=== PATIENT | male | born 1970 | race African-American/Black ===

== ENCOUNTER 2018-06-26 16:11 | Emergency (ER) | payer BC ==
[2018-06-26] MEDS ORDERED: IBUPROFEN 400 MG TAB ONE (17:16)
--- NOTE | 2018-06-26 17:42 | ER ---
Nurse's Notes [facility] Name: Russel Sotelo Age: 48 yrs Sex: Male : 1970 Arrival Date: 06/26/2018 Time: 16:14 Bed 9 Private MD: Out, [facility] Diagnosis: Pain in right ankle and joints of right foot Presentation: 06/26 16:37 Presenting complaint: Patient states: "It might be gout but something is wrong with my aj1 ankle. I had it X-Rayed 6 months ago and there was some tissues that were torn so I might have torn them again" Reports ankle pain for the past 6 months. Pain is alleviated by resting and exacerbated by walking on it. Transition of care: patient was not received from another setting of care. Onset of symptoms was November 2017. Risk Assessment: Do you want to hurt yourself or someone else? Patient reports no desire to harm self or others. Initial Sepsis Screen: Does the patient meet any 2 criteria? No. Patient's initial sepsis screen is negative. Does the patient have a suspected source of infection? No. Patient's initial sepsis screen is negative. Care prior to arrival: None. 16:37 Method Of Arrival: Ambulatory aj 16:37 Acuity: TRUE 4 aj1 Triage Assessment: 16:41 General: Appears in no apparent distress. comfortable, Behavior is calm, cooperative, aj1 appropriate for age. Pain: Complains of pain in right ankle Pain currently is 6 out of 10 on a pain scale. Neuro: Level of Consciousness is awake, alert, obeys commands. Cardiovascular: Patient's skin is warm and dry. Respiratory: Airway is patent Respiratory effort is even, unlabored, Respiratory pattern is regular, symmetrical. Musculoskeletal: Range of motion: intact in all extremities. Historical: - Allergies: 16:41 No Known Allergies; aj1 - Home Meds: 16:41 Lisinopril Oral [Active]; metformin Oral [Active]; cholesterol medication [Active]; aj1 - PMHx: 16:41 Hypertension; Hyperlipidemia; Diabetes - NIDDM; aj1 - Immunization history:: Flu vaccine is not up to date. - Social history:: Smoking status: Patient/guardian denies using tobacco. - Ebola Screening: : Patient denies travel to an Ebola-affected area in the 21 days before illness onset. Screenin:16 Abuse screen: Denies threats or abuse. Denies injuries from another. Nutritional hb screening: No deficits noted. Tuberculosis screening: No symptoms or risk factors identified. Fall Risk None identified. Assessment: 17:16 General: Appears in no apparent distress. Behavior is calm, cooperative. Pain: Pain hb currently is 6 out of 10 on a pain scale. Neuro: Level of Consciousness is awake, alert, obeys commands, Oriented to person, place, time, situation. Cardiovascular: Capillary refill < 3 seconds Patient's skin is warm and dry. Respiratory: Airway is patent Trachea midline Respiratory effort is even, unlabored, Respiratory pattern is regular, symmetrical. Musculoskeletal: Reports pain in right ankle. Vital Signs: 16:41 BP 145 / 93; Pulse 94; Resp 18; Temp 98.1; Pulse Ox 93% on R/A; Weight 138.35 kg (R); aj1 Height 5 ft. 9 in. (175.26 cm) (R); Pain 6/10; 16:41 Body Mass Index 45.04 (138.35 kg, 175.26 cm) aj1 ED Course: 16:14 Patient arrived in ED. sb2 16:14 Out, of [facility] is Private Physician. sb2 16:40 Triage completed. aj1 16:41 Arm band placed on Patient placed in an exam room. aj1 16:43 Adam Henderson PA is PHCP. cp 16:43 Min Best MD is Attending Physician. cp 17:15 Ginny Villa, RN is Primary Nurse. hb 17:25 Patient has correct armband on for positive identification. Call light in reach. hb 17:28 XRAY Ankle RIGHT 3 view In Process Unspecified. EDMS 17:52 No provider procedures requiring assistance completed. Patient did not have IV access hb during this emergency room visit. Administered Medications: No medications were administered Outcome: 17:42 Discharge ordered by MD. cp 17:52 Discharged to home ambulatory. hb 17:52 Condition: stable 17:52 Discharge instructions given to patient, Instructed on discharge instructions, follow up and referral plans. medication usage, Demonstrated understanding of instructions, follow-up care, medications, Prescriptions given X 2. 17:52 Patient left the ED. hb Signatures: Dispatcher [employer] EDDE Stephanie Eldridge RN RN aj1 Adam Henderson PA PA cp Baxter, Heather, RN RN Gab Pani sb2
--- NOTE | 2018-06-26 17:42 | EDPHYS ---
Physician Documentation [facility] Name: Russel Sotelo Age: 48 yrs Sex: Male : 1970 Arrival Date: 06/26/2018 Time: 16:14 Bed 9 Private MD: Out, [facility] ED Physician Min Best HPI: 06/26 16:54 This 48 yrs old Black Male presents to ER via Ambulatory with complaints of Ankle cp Injury. 16:54 The patient presents with pain, that is acute, swelling, tenderness. The complaints cp affect the right ankle. Onset: The symptoms/episode began/occurred 2-3 days ago. Context: resulted from a gout flare up, similar to previous episodes, The patient can fully bear weight on the affected extremity. the patient is able to ambulate. Historical: - Allergies: 16:41 No Known Allergies; aj1 - Home Meds: 16:41 Lisinopril Oral [Active]; metformin Oral [Active]; cholesterol medication [Active]; aj1 - PMHx: 16:41 Hypertension; Hyperlipidemia; Diabetes - NIDDM; aj1 - Immunization history:: Flu vaccine is not up to date. - Social history:: Smoking status: Patient/guardian denies using tobacco. - Ebola Screening: : Patient denies travel to an Ebola-affected area in the 21 days before illness onset. ROS: 17:00 Constitutional: Negative for body aches, chills, fever, poor PO intake. cp 17:00 Eyes: Negative for injury, pain, redness, and discharge. cp 17:00 Cardiovascular: Negative for chest pain, edema, palpitations. 17:00 Respiratory: Negative for cough, shortness of breath, wheezing. 17:00 Abdomen/GI: Negative for abdominal pain. 17:00 MS/extremity: Positive for pain, swelling, tenderness, of the right ankle, Negative for injury or acute deformity, decreased range of motion, paresthesias. 17:00 All other systems are negative. Exam: 17:05 Constitutional: The patient appears in no acute distress, alert, awake, non-toxic, well cp developed, well nourished. 17:05 Head/Face: Normocephalic, atraumatic. cp 17:05 Eyes: Periorbital structures: appear normal, Conjunctiva: normal, no exudate, no injection, Lids and lashes: appear normal, bilaterally. 17:05 ENT: External ear(s): are unremarkable, Nose: is normal, Mouth: Lips: moist, Oral mucosa: moist, Posterior pharynx: is normal, airway is patent. 17:05 Chest/axilla: Inspection: normal. 17:05 Cardiovascular: Rate: normal, Edema: is not appreciated. 17:05 Respiratory: the patient does not display signs of respiratory distress, Respirations: normal, no use of accessory muscles, no retractions, no splinting, no tachypnea. 17:05 Musculoskeletal/extremity: Perfusion: the extremity is normally perfused throughout, Sensation intact. Joints: All joints are normal except the right ankle displays painful range of motion, swelling, tenderness. 17:05 Skin: cellulitis, is not appreciated, no rash present. Vital Signs: 16:41 BP 145 / 93; Pulse 94; Resp 18; Temp 98.1; Pulse Ox 93% on R/A; Weight 138.35 kg (R); aj1 Height 5 ft. 9 in. (175.26 cm) (R); Pain 6/10; 16:41 Body Mass Index 45.04 (138.35 kg, 175.26 cm) aj1 MDM: 16:43 Patient medically screened. cp 17:00 Differential diagnosis: fracture, sprain, gout, cellulitis, septic joint. cp 17:40 Data reviewed: vital signs, nurses notes, radiologic studies, plain films. cp 17:40 Test interpretation: by ED physician or midlevel provider: plain radiologic studies. cp Counseling: I had a detailed discussion with the patient and/or guardian regarding: the historical points, exam findings, and any diagnostic results supporting the discharge/admit diagnosis, radiology results, the need for outpatient follow up, a family practitioner, to return to the emergency department if symptoms worsen or persist or if there are any questions or concerns that arise at home. Response to treatment: the patient's symptoms have mildly improved after treatment, and as a result, I will discharge patient. 06/26 16:53 Order name: XRAY Ankle RIGHT 3 view cp 06/26 17:30 Order name: Dontrell wrap-joint cp 06/26 17:30 Order name: Crutches cp 06/26 17:30 Order name: Aircast Ankle Splint cp Administered Medications: No medications were administered Disposition: 06/26/18 17:42 Discharged to Home. Impression: Pain in right ankle and joints of right foot. - Condition is Stable. - Discharge Instructions: Gout, Ankle Pain, Form - Excuse from Work, School, or Physical Activity. - Prescriptions for Tramadol 50 mg Oral Tablet - take 1 tablet by ORAL route every 8 hours as needed; 15 tablet. Medrol (Leandro) 4 mg Oral Tablets, Dose Pack - take 1 tablet by ORAL route as directed - follow package instructions; 1 packet. - Medication Reconciliation Form, Thank You Letter, Antibiotic Education, Prescription Opioid Use form. - Work release form (06/26/18 17:57). hb - Follow up: Private Physician; When: 2 - 3 days; Reason: Recheck today's complaints. - Problem is an acute exacerbation. - Symptoms have improved. Addendum: 07/05/2018 08:25 Co-signature as Attending Physician, Min Best MD. r n Signatures: Dispatcher [employer] EDStephanie Malcolm RN RN aj1 Min Best MD MD rn Page, Corey, PA PA cp Baxter, Heather, RN RN hb Corrections: (The following items were deleted from the chart) 06/26 17:52 17:42 06/26/2018 17:42 Discharged to Home. Impression: Pain in right ankle and joints hb of right foot. Condition is Stable. Forms are Medication Reconciliation Form, Thank You Letter, Antibiotic Education, Prescription Opioid Use. Follow up: Private Physician; When: 2 - 3 days; Reason: Recheck today's complaints. Problem is an acute exacerbation. Symptoms have improved. cp
--- NOTE | 2018-06-26 19:11 | RAD REPORT ---
EXAM DESCRIPTION: RAD - Ankle Right 3 View - 06/26/2018 5:28 pm CLINICAL HISTORY: Persistent ankle pain COMPARISON: None. FINDINGS: No fracture, dislocation or periosteal reaction. No joint effusion seen. Lateral soft tiss ue swelling is evident. Anterior soft tissues are prominent as well. Baseline for the patient is unkn own. Calcification is seen in the Achilles tendon. No plantar spur. Degenerative spurring and small c alcifications are seen along the medial ankle joint. IMPRESSION: Lateral and anterior soft tissue swelling with no acute bone finding.
== END 2018-06-26 17:52 | disposition home or self-care (01) ==
LOC: ER 16:11
DX: M25.571 Pain in right ankle and joints of right foot (principal); I10 Essential (primary) hypertension; E11.9 Type 2 diabetes mellitus without complications; E78.5 Hyperlipidemia, unspecified
CPT/HCPCS: 99283

== ENCOUNTER 2019-03-17 12:08 | Inpatient (IN) | payer BC ==
[2019-03-17] MEDS ORDERED: NA CHLORIDE 0.9% 1,000 ML ONE ×2 (12:54→17:06)
[2019-03-17 13:35] LABS: Absolute Lymphocytes (CBC) 1.9 K/uL (0.7-4.9); Absolute Monocytes 0.7 K/uL (0.1-1.3); Absolute Neutrophil 5.2 K/uL (1.8-8.0); Basophils % 0.7 % (0-1.3); Eosinophils % 8.4 % (0-4.4); Hematocrit 40.5 % (39.6-49.0); MPV 9.9 fL (7.6-11.3); Monocytes % 8.2 % (3.3-12.3); RBC Red Blood Cell Count 5.76 M/uL (4.33-5.43)
[2019-03-17 13:50] LABS: Urine Blood TRACE (NEG); Urine Glucose 2+ (NEG); Urine Protein NEGATIVE (NEG); Urine Specific Gravity 1.005 (1.005-1.030)
[2019-03-17 14:01] LABS: BUN Blood Urea Nitrogen 26 mg/dL (7-18); Bicarbonate 26 mmol/L (21-32); Potassium 4.6 mmol/L (3.5-5.1); Sodium Level 121 mmol/L (136-145)
[2019-03-17 14:07] LABS: Glucose Level 788 mg/dL (74-106)
--- NOTE | 2019-03-17 14:20 | EDPHYS ---
Physician Documentation [facility] Name: Russel Sotelo Age: 49 yrs Sex: Male : 1970 Arrival Date: 03/17/2019 Time: 12:10 Bed 5 Private MD: ED Physician Min Best HPI: 03/17 12:42 This 49 yrs old Black Male presents to ER via Ambulatory with complaints of High Blood kb Sugar. 12:42 The patient or guardian reports hyperglycemia, polyuria, dizziness, weight loss that kb was potentially precipitated by no particular event. Onset: The symptoms/episode began/occurred 2 week(s) ago. Associated signs and symptoms: Pertinent positives: polyuria, dizziness, weight loss. Current symptoms: In the emergency department the patient's symptoms are unchanged from the initial presentation. The patient has not experienced similar symptoms in the past. The patient has not recently seen a physician. Pt reports polyuria (6x/hr), hyperglycemia, dizziness for the past 2 weeks, with weight loss of 30 pounds. Came today because he was off of work. . Historical: - Allergies: 12:21 No Known Allergies; sv - Home Meds: 19:51 cholesterol medication [Active]; lisinopril Oral [Active]; Metformin Oral [Active]; jd3 - PMHx: 12:21 Diabetes - NIDDM; Hyperlipidemia; Hypertension; sv - Immunization history:: Adult Immunizations unknown. - Social history:: Smoking status: unknown. - Ebola Screening: : Patient negative for fever greater than or equal to 101.5 degrees Fahrenheit, and additional compatible Ebola Virus Disease symptoms. ROS: 12:42 ENT: Negative for injury, pain, and discharge, Neck: Negative for injury, pain, and kb swelling, Cardiovascular: Negative for chest pain, palpitations, and edema, Respiratory: Negative for shortness of breath, cough, wheezing, and pleuritic chest pain, Abdomen/GI: Negative for abdominal pain, nausea, vomiting, diarrhea, and constipation, MS/Extremity: Negative for injury and deformity, Skin: Negative for injury, rash, and discoloration. 12:42 Constitutional: Positive for weight loss, Negative for body aches, chills, fatigue, fever, malaise, poor PO intake. 12:42 Neuro: Positive for dizziness. 12:42 Endocrine: Positive for polyuria, weight loss. Exam: 12:51 Constitutional: This is a well developed, well nourished patient who is awake, alert, kb and in no acute distress. Head/Face: Normocephalic, atraumatic. ENT: Nares patent. No nasal discharge, no septal abnormalities noted. Tympanic membranes are normal and external auditory canals are clear. Oropharynx with no redness, swelling, or masses, exudates, or evidence of obstruction, uvula midline. Mucous membranes moist. Neck: Trachea midline, no thyromegaly or masses palpated, and no cervical lymphadenopathy. Supple, full range of motion without nuchal rigidity, or vertebral point tenderness. No Meningismus. Chest/axilla: Normal chest wall appearance and motion. Nontender with no deformity. No lesions are appreciated. Cardiovascular: Regular rate and rhythm with a normal S1 and S2. No gallops, murmurs, or rubs. Normal PMI, no JVD. No pulse deficits. Respiratory: Lungs have equal breath sounds bilaterally, clear to auscultation and percussion. No rales, rhonchi or wheezes noted. No increased work of breathing, no retractions or nasal flaring. Abdomen/GI: Soft, non-tender, with normal bowel sounds. No distension or tympany. No guarding or rebound. No evidence of tenderness throughout. Skin: Warm, dry with normal turgor. Normal color with no rashes, no lesions, and no evidence of cellulitis. MS/ Extremity: Pulses equal, no cyanosis. Neurovascular intact. Full, normal range of motion. Neuro: Awake and alert, GCS 15, oriented to person, place, time, and situation. Cranial nerves II-XII grossly intact. Motor strength 5/5 in all extremities. Sensory grossly intact. Cerebellar exam normal. Normal gait. Vital Signs: 12:21 BP 128 / 81; Pulse 96; Resp 18; Temp 97.6; Pulse Ox 97% ; Weight 122.47 kg; Height 5 sv ft. 9 in. (175.26 cm); Pain 0/10; 13:19 BP 130 / 71; Pulse 91; Resp 16; Pulse Ox 98% on R/A; Pain 0/10; iw 19:45 BP 124 / 85; Pulse 78; Resp 18 S; Pulse Ox 97% on R/A; Pain 0/10; jd3 12:21 Body Mass Index 39.87 (122.47 kg, 175.26 cm) sv MDM: 12:32 Patient medically screened. kb 12:51 Data reviewed: vital signs, nurses notes. Data interpreted: Pulse oximetry: on room air kb is 97 %. Interpretation: normal. 14:18 ED course: Corrected Na 132. kb 14:18 Counseling: I had a detailed discussion with the patient and/or guardian regarding: the kb historical points, exam findings, and any diagnostic results supporting the discharge/admit diagnosis, lab results, the need for further work-up and treatment in the hospital. Physician consultation: Wilian Forrester MD was called at 14:18, voicemail left. 03/17 12:27 Order name: Glucose, Ancillary Testing; Complete Time: 12:33 EDMS 03/17 12:38 Order name: CBC with Diff; Complete Time: 13:47 kb 03/17 12:38 Order name: Basic Metabolic Panel; Complete Time: 14:20 kb 03/17 12:38 Order name: Acetone, Serum; Complete Time: 14:20 kb 03/17 13:24 Order name: Urine Dipstick--Ancillary (enter results); Complete Time: 13:51 eb 03/17 15:17 Order name: Osmolality, Serum EDMS 03/17 15:18 Order name: ABG Arterial Blood Gas; Complete Time: 16:05 EDMS 03/17 15:25 Order name: Glucose; Complete Time: 16:42 eb 03/17 15:26 Order name: Glucose, Ancillary Testing; Complete Time: 15:29 EDMS 03/17 16:46 Order name: Miscellaneous Test Lab; Complete Time: 16:47 EDMS 03/17 18:23 Order name: Glucose, Ancillary Testing; Complete Time: 16:42 EDMS 03/17 19:10 Order name: Basic Metabolic Panel; Complete Time: 16:42 EDMS 03/17 19:10 Order name: Phosphorus; Complete Time: 16:42 EDMS 03/17 12:38 Order name: IV Start; Complete Time: 12:46 kb 03/17 12:38 Order name: Urine Dipstick-Ancillary (obtain specimen); Complete Time: 13:19 kb 03/17 12:38 Order name: EKG; Complete Time: 12:39 kb 03/17 12:38 Order name: EKG - Nurse/Tech; Complete Time: 13:20 kb 03/17 19:10 Order name: Magnesium; Complete Time: 16:42 EDMS Administered Medications: 12:45 Drug: NS 0.9% 1000 ml Route: IV; Rate: 1000 ml; Site: left antecubital; sv 14:21 Drug: Insulin Regular Human 10 units {Co-Signature: mc (Yves Altamirano RN).} Route: IVP; iw Site: left antecubital; 14:55 Drug: Insulin Regular Human 10 units {Co-Signature: mc Altamirano RN).} Route: Sub-Q; iw Site: right upper arm; 16:30 Drug: NS 0.9% 1000 ml Route: IV; Rate: 1000 ml; Site: left antecubital; sg 19:54 Follow up: Response: No adverse reaction; IV Status: Completed infusion; IV Intake: jd3 1000ml Point of Care Testing: Blood Glucose: 12:25 Blood Glucose: High (>450 mg/dL); sv 12:25 greater than 500 sv Ranges: Critical Glucose Levels:Adult <50 mg/dl or >400 mg/dl <40 mg/dl or >180 mg/dl Disposition: 03/17/19 14:19 Hospitalization ordered by Wilian Forrester for Inpatient Admission. Preliminary diagnosis are Hyperglycemia, unspecified, Dizziness and giddiness, Polyuria, Acute kidney failure. - Bed requested for Intensive Care Unit. - Status is Inpatient Admission. jd3 - Condition is Stable. - Problem is new. - Symptoms are unchanged. UTI on Admission? No Addendum: 03/18/2019 22:44 Co-signature as Attending Physician, Min Best MD. r n Signatures: Dispatcher [employer] [facility] Maru Frederick, INK PRINTER-C INK PRINTER-Ckb Annel Mccain RN RN sv Gay, Steven RN OLAYINKA sg Arlette Browne RN OLAYINKA Min Best MD MD rn Davies, Jonathon, RN RN jd3 Botello, Elizabeth eb Steven Gay RN sg Corrections: (The following items were deleted from the chart) 03/17 14:06 12:27 GLUCOSE+C.LAB.BRZ ordered. [facility] EDVT 16:29 14:19 Hospitalization Ordered by Wilian Forrester MD for Inpatient Admission. Preliminary eb diagnosis is Hyperglycemia, unspecified; Dizziness and giddiness; Polyuria; Acute kidney failure. Bed requested for Telemetry/MedSurg (Inpatient). Status is Inpatient Admission. Condition is Stable. Problem is new. Symptoms are unchanged. UTI on Admission? No. kb 19:55 16:29 03/17/2019 14:19 Hospitalization Ordered by Wilian Forrester MD for Inpatient jd3 Admission. Preliminary diagnosis is Hyperglycemia, unspecified; Dizziness and giddiness; Polyuria; Acute kidney failure. Bed requested for Intensive Care Unit. Status is Inpatient Admission. Condition is Stable. Problem is new. Symptoms are unchanged. UTI on Admission? No. eb
--- NOTE | 2019-03-17 14:20 | ER ---
Nurse's Notes [facility] Name: Russel Sotelo Age: 49 yrs Sex: Male : 1970 Arrival Date: 03/17/2019 Time: 12:10 Bed 5 Private MD: Diagnosis: Hyperglycemia, unspecified;Dizziness and giddiness;Polyuria;Acute kidney failure Presentation: 03/17 12:20 Presenting complaint: Patient states: was seen at the clinic and BS read HIGH, sent sv here. Reports dry mouth, increased urination, dizziness, BS has been in the 400s for weeks. Transition of care: patient was not received from another setting of care. Onset of symptoms was March 17, 2019. Care prior to arrival: None. 12:20 Method Of Arrival: Ambulatory sv 12:20 Acuity: TRUE 2 sv 19:50 Risk Assessment: Do you want to hurt yourself or someone else? Patient reports no jd3 desire to harm self or others. Initial Sepsis Screen: Does the patient meet any 2 criteria? No. Patient's initial sepsis screen is negative. Does the patient have a suspected source of infection? No. Patient's initial sepsis screen is negative. Historical: - Allergies: 12:21 No Known Allergies; sv - Home Meds: 19:51 cholesterol medication [Active]; lisinopril Oral [Active]; Metformin Oral [Active]; jd3 - PMHx: 12:21 Diabetes - NIDDM; Hyperlipidemia; Hypertension; sv - Immunization history:: Adult Immunizations unknown. - Social history:: Smoking status: unknown. - Ebola Screening: : Patient negative for fever greater than or equal to 101.5 degrees Fahrenheit, and additional compatible Ebola Virus Disease symptoms. Screenin:07 Abuse screen: Denies threats or abuse. Denies injuries from another. Nutritional iw screening: No deficits noted. Tuberculosis screening: No symptoms or risk factors identified. Fall Risk IV access (20 points). Assessment: 13:05 General: Appears in no apparent distress. Behavior is calm, cooperative. General: iw Denies fever, feeling ill. Pain: Denies pain. Neuro: Level of Consciousness is awake, alert, obeys commands, Oriented to person, place, time, situation, Moves all extremities. Full function. Cardiovascular: Respiratory: Airway is patent Respiratory effort is even, unlabored. GI: Abdomen is. GI: Bowel sounds present X 4 quads. Abd is soft X 4 quads. : Reports urinary frequency. Derm: Skin is intact, is healthy with good turgor. Musculoskeletal: Range of motion: intact in all extremities. 13:14 Reassessment: Patient and/or family updated on plan of care and expected duration. Pain iw level reassessed. blood recollected and sent to lab, pt in NAD, up to bathroom with steady gait. 15:59 Reassessment: Patient appears in no apparent distress at this time. Patient and/or sg family updated on plan of care and expected duration. Pain level reassessed. pt ambulatory to ER restroom, steady even gate, pt denies pain, N/V/D/Fever. 19:15 Reassessment: Patient appears in no apparent distress at this time. Patient and/or jd3 family updated on plan of care and expected duration. Pain level reassessed. Patient is alert, oriented x 3, equal unlabored respirations, skin warm/dry/pink. Patient denies pain at this time. 19:45 Reassessment: Patient appears in no apparent distress at this time. Patient and/or jd3 family updated on plan of care and expected duration. Pain level reassessed. Patient is alert, oriented x 3, equal unlabored respirations, skin warm/dry/pink. Vital Signs: 12:21 BP 128 / 81; Pulse 96; Resp 18; Temp 97.6; Pulse Ox 97% ; Weight 122.47 kg; Height 5 sv ft. 9 in. (175.26 cm); Pain 0/10; 13:19 BP 130 / 71; Pulse 91; Resp 16; Pulse Ox 98% on R/A; Pain 0/10; iw 19:45 BP 124 / 85; Pulse 78; Resp 18 S; Pulse Ox 97% on R/A; Pain 0/10; jd3 12:21 Body Mass Index 39.87 (122.47 kg, 175.26 cm) sv ED Course: 12:10 Patient arrived in ED. rg4 12:11 Maru Frederick FNP-C is PHCP. kb 12:11 Min Best MD is Attending Physician. kb 12:20 Triage completed. sv 12:21 Arm band placed on. sv 12:32 Arlette Browne, OLAYINKA is Primary Nurse. iw 12:39 Inserted saline lock: 20 gauge in left antecubital area, using aseptic technique. Blood iw collected. 12:46 EKG done, by handling tech. reviewed by Maru DOCKERY. 3 14:09 Notified Nurse Practitioner and/or Physician Shipping And Receiving of a critical lab result(s), hb Gluc [id number], Arlette RN notified. 14:19 Wilian Forrester MD is Hospitalizing Provider. kb 19:50 Patient has correct armband on for positive identification. Placed in gown. Bed in low jd3 position. Call light in reach. Side rails up X 1. Adult w/ patient. 19:52 No provider procedures requiring assistance completed. Patient admitted, IV remains in jd3 place. Administered Medications: 12:45 Drug: NS 0.9% 1000 ml Route: IV; Rate: 1000 ml; Site: left antecubital; sv 14:21 Drug: Insulin Regular Human 10 units {Co-Signature: mc (Yves Altamirano RN).} Route: IVP; iw Site: left antecubital; 14:55 Drug: Insulin Regular Human 10 units {Co-Signature: mc (Yves Altamirano RN).} Route: Sub-Q; iw Site: right upper arm; 16:30 Drug: NS 0.9% 1000 ml Route: IV; Rate: 1000 ml; Site: left antecubital; sg 19:54 Follow up: Response: No adverse reaction; IV Status: Completed infusion; IV Intake: jd3 1000ml Point of Care Testing: Blood Glucose: 12:25 Blood Glucose: High (>450 mg/dL); sv 12:25 greater than 500 sv Ranges: Intake: 19:54 IV: 1000ml; Total: 1000ml. jd3 Outcome: 14:19 Decision to Hospitalize by Provider. kb 19:52 Admitted to ICU accompanied by nurse, via stretcher, room 06, on monitor, with chart, jd3 Report called to report given per day shift nurse. 19:52 Condition: stable 19:52 Instructed on the need for admit, Demonstrated understanding of instructions. 19:55 Patient left the ED. jd3 Signatures: Maru Frederick FNP-C FNP-Ckb Verde, Stephanie, RN RN sv Gay, Steven, RN RN sg Williams, Irene, RN RN Ginny Villa RN RN hb Garcia, Rubi rg4 Heri Mccann RN RN jd3 Betzy Laird sm3 Yves Altamirano RN sg
[2019-03-17] MEDS ORDERED: INSULIN -REGULAR HUMAN 50 UNIT/0.5 ML ML ONE ×2 (14:27→15:02)
--- NOTE | 2019-03-17 15:15 | EKG ---
Test Date: 2019-03-17 Test Time: 12:46:11 Rd Manager: ELIZABETH MEASUREMENT RESULTS: Intervals: Rate: 90 NM: 142 QRSD: 98 QT: 368 QTc: 450 [place]: P: 40 NM: 142 QRS: -5 T: 21 INTERPRETIVE STATEMENTS: Normal sinus rhythm Normal ECG No previous ECG available for comparison Electronically Signed On 03-17-19 15:14:15 CDT by Marshall Hurley
[2019-03-17 16:01] LABS: Arterial Blood Carboxyhemoglob 1.4 % (0-1.5); Blood Gas Oxyhemoglobin 93.2 % (94-97); Blood O2 Saturation 95.8 % (92-98.5)
[2019-03-17] MEDS ORDERED: GLUCAGON 1 MG/VIAL IM PRN (18:22)
[2019-03-17] MEDS ORDERED: D50W 25 GM/50 ML SYRINGE IV PRN (18:22)
[2019-03-17] MEDS ORDERED: ONDANSETRON 4 MG/2 ML VIAL IV PRN (18:28)
[2019-03-17] MEDS ORDERED: INSULIN -REGULAR HUMAN 100 UNIT in NA CHLORIDE 0.9% 100 ML IV SCH (18:30)
[2019-03-17] MEDS: D5 0.45 NS 1,000 ML IV SCH (19:00)
[2019-03-17] MEDS ORDERED: NA CHLORIDE 0.9% 1,000 ML IV SCH (19:00)
[2019-03-17 19:09] LABS: Magnesium 2.6 mg/dL (1.8-2.4); Phosphorus 2.3 mg/dL (2.5-4.9); Potassium 3.7 mmol/L (3.5-5.1)
[2019-03-17] MEDS: NA CHLORIDE 0.9% 1,000 ML IV SCH (20:36)
[2019-03-17] MEDS: ENOXAPARIN 40 MG/0.4 ML SQ SCH (20:36)
[2019-03-17 22:47] LABS: Potassium 3.3 mmol/L (3.5-5.1)
[2019-03-18 00:55] LABS: Urine Appearance CLEAR; Urine Bilirubin NEGATIVE (NEG); Urine Blood NEGATIVE (NEG); Urine Color YELLOW; Urine Glucose 3+ (NEG); Urine Protein TRACE (NEG); Urine Specific Gravity >=1.030 (1.005-1.030); Urine Urobilinogen 0.2 mg/dL (0.2-1.0); Urine pH 5.5 (5.0-7.0)
[2019-03-18 01:01] LABS: Urine Microscopic Reflex ORDER UMIC
[2019-03-18] MEDS: D5 0.45 NS 1,000 ML IV SCH ×2 (01:40→03:05)
[2019-03-18 01:47] LABS: Urine Bacteria <20 /HPF (NONE SEEN); Urine Culture Reflex Order REFLEXED; Urine RBC NONE SEEN /HPF (NONE SEEN)
[2019-03-18] MEDS: NA CHLORIDE 0.9% 1,000 ML IV SCH (02:12)
[2019-03-18 03:29] LABS: Potassium 3.6 mmol/L (3.5-5.1)
[2019-03-18] MEDS ORDERED: KCL 20 MEQ/100 mL IVPB 20 MEQ/100 ML BAG IV SCH (04:00)
--- NOTE | 2019-03-18 04:00 | HP ---
Date of Admission: 03/17/2019 Chief Complaint: Polyuria, polydipsia. History Of Present Illness: The patient is a 49-year-old male with past medical history of diabetes, hypertension, hyperlipidemia, who has been on metformin with uncontrolled blood glucose levels. The patient was told he needs to be on subcutaneous insulin, however, wanted to try weight loss and diet changes first. The patient reports losing 30 pounds in the past 3 weeks. Significant polyuria, manny ydipsia, dizziness, and dehydration. The patient came in for further evaluation today after being se en by his primary care doctor for having an elevated blood glucose level. The patient's symptoms are constant, moderate, progressively worsening. Workup revealed a glucose level of 788. Serum osmolal ity was unable to be checked due to lab not having the agent. Sodium level was 121. No ketones were present. The patient was given 1 L IV fluid in the ER and then referred for admission. When seen i n the ER, he was awake, alert, oriented x3. Some mild distress. Past Medical History: Diabetes mellitus type 2, [id number], hyperlipidemia hypertension. Past Surgical History: None. Allergies: NO KNOWN DRUG ALLERGIES. Medications: 1.Lisinopril. 2.Metformin. 3.Gemfibrozil. Social History: The patient denies any tobacco use, alcohol use, or illicit drug use. The patient i s gainfully employed. Family History: Diabetes runs in the family. Review of Systems: An 11-point system reviewed, negative except as per HPI. Physical Examination: Vital Signs: Blood pressure 128/81, pulse 96, respirations 18, temperature 97.6, O2 97% on room air. General: Awake, alert, and oriented x3. Obese male in some mild distress. HEENT: Normocephalic, atraumatic. PERRLA. EOMI. Dry mucous membranes. Oropharynx is clear. Norm al dentition. Conjunctivae anicteric. Neck: Supple. No JVD. Trachea midline. CV: S1 and S2. Regular rate and rhythm. Peripheral pulses present. Respiratory: Moving air well bi laterally. No wheezing or stridor. No use of accessory muscles. Gastrointestinal: Abdomen is soft, nontender, nondistended. Positive bowel sounds. No guarding or rigidity. Extremities: No clubbing, cyanosis, or edema. No calf tenderness. Neuro: Cranial nerves 2 through 12 intact grossly. No focal neurological deficit. Speech is normal . Skin: No rashes. Normal skin turgor. Psych: Mood is okay. Affect is full. Insight and judgment are good. Laboratory Data: WBC 8.5, H and H are 12.9 and 40.5, MCV 70.3, platelets 294. ABG; pH 7.4, pCO2 44. 7, PO2 79, bicarb 27. Sodium 121, potassium 4.6, chloride 86, CO2 of 26, BUN 26, creatinine 2.03, gl ucose 788, calcium 9.1. Serum osmolality unable to be done due to lack of the agent in the lab. UA is negative. Acetone level negative. EKG shows normal sinus rhythm, rate of 90. Assessment And Plan: A 49-year-old male with: 1.Hyperosmolar nonketotic hyperglycemia. We will start patient on IV insulin. We will monitor elec trolytes every 4 hours. The patient received 1 L bolus in the ER. We will bolus with 1 more L of no rmal saline. Monitor I's and O's and blood glucose levels closely. 2.Acute dehydration. We will continue with IV fluids. 3.Dizziness, secondary to above. 4.Unintentional weight loss, secondary to uncontrolled diabetes. 5.Pseudohyponatremia, corrected sodium is above 130. 6.Acute kidney injury, likely due to prerenal azotemia. We will continue with IV fluids and monitor . Avoid NSAIDs. 7.Obesity, body mass index of 39.87. 8.Essential hypertension, stable. We will resume home medications. We will hold lisinopril for now due to acute kidney injury. 9.Mixed hyperlipidemia. Continue with antihyperlipidemics. 10.Deep venous thrombosis, prophylaxis with SCDs. Plan: Admit the patient to ICU, place as inpatient. /KENIA Voice ID: [id number]
[2019-03-18] MEDS ORDERED: NA CHLORIDE 0.9% 1,000 ML IV SCH (06:00)
[2019-03-18 06:32] LABS: BUN Blood Urea Nitrogen 17 mg/dL (7-18); Bicarbonate 29 mmol/L (21-32); Glucose Level 171 mg/dL (74-106); HDL Cholesterol 36 mg/dL (40-60); LDL Cholesterol, Calculated ND (<130); Potassium 3.6 mmol/L (3.5-5.1); Sodium Level 136 mmol/L (136-145)
[2019-03-18 07:01] LABS: LDL, Direct 80 mg/dL (100-129)
[2019-03-18] MEDS: INSULIN -REGULAR HUMAN 50 UNIT/0.5 ML ML SQ SCH ×4 (07:30→20:59)
[2019-03-18] MEDS ORDERED: INSULIN GLARGINE 100 UNITS/ML SQ ONE (08:11)
[2019-03-18] MEDS ORDERED: D50W 25 GM/50 ML SYRINGE IV PRN (08:11)
[2019-03-18] MEDS ORDERED: GLUCAGON 1 MG/VIAL IM PRN (08:11)
[2019-03-18] MEDS: GLIPIZIDE S.A. 5 MG TAB PO SCH (09:00)
[2019-03-18] MEDS: ALLOPURINOL 300 MG TAB PO SCH (09:00)
[2019-03-18] MEDS ORDERED: FENOFIBRATE 54 MG PO SCH (09:00)
[2019-03-18] MEDS: ENOXAPARIN 40 MG/0.4 ML SQ SCH (09:00)
[2019-03-18] MEDS: AMLODIPINE 10 MG TAB PO SCH (09:00)
--- NOTE | 2019-03-18 15:06 | PN ---
Date of Progress Note: 03/18/2019 History: The patient is seen and examined. Chart reviewed and case discussed with RN. The patient was counseled regarding his diabetes and triglycerides. Medications: List reviewed. Physical Examination: Vital Signs: Temperature 97.8, heart rate 75, blood pressure 110/71, respirations 15, O2 99% on room air. General: Awake, alert, oriented x3. No acute distress. Morbidly obese male. CV: S1, S2. Regular rate and rhythm. Peripheral pulses present. Respiratory: Moving air well bilaterally. No wheezing or stridor. Gastrointestinal: Abdomen is soft, nontender, nondistended. Positive bowel sounds. Extremities: No clubbing, cyanosis, or edema. Neuro: Cranial nerves 2-12 intact grossly. No focal neurological deficit. Skin: No rashes. Normal skin turgor. Psych: Mood is okay. Affect is full. Insight and judgment are good. Laboratory Data: Sodium 136, potassium 3.6, chloride 101, CO2 29, BUN 7, creatinine 1.37, glucose 17 1, and calcium 8.3. Hemoglobin A1c is pending. Triglycerides 1653, cholesterol 246, LDL 80. UA is negative. Urine cultures pending. Assessment And Plan: A 49-year-old male with: 1.Hyperosmolar nonketotic hyperglycemia. The patient was taken off IV insulin around 3 a.m. last ni [facility] [place]. The patient used a total of 96 units. We will switch over to subcutaneous insulin. We will st art off with 30 units of long-acting and adjust based on his response. We will add premeal as needed . Continue IV fluids. 2.Hypokalemia, corrected. 3.Pseudohyponatremia, corrected. 4.Acute dehydration, improved. Continue with IV fluids. Once the patient is tolerating diet, we wi ll discontinue. 5.Dizziness, resolved. 6.Unintentional weight loss secondary to uncontrolled diabetes. 7.Acute kidney injury likely due to prerenal azotemia, significantly improved. Creatinine is trendi ng down. We will avoid NSAIDs. We will hold lisinopril for now. Continue to monitor. 8.Obesity, BMI 39. 9.Essential hypertension stable. Resume amlodipine. 10.Mixed hyperlipidemia. Continue with home medications. 11.Hypertriglyceridemia. 12.Deep venous thrombosis prophylaxis with Lovenox and SCDs. Plan: Step down to Med/Surg. Adjust insulin dose as needed. Likely discharge in a.m. /KENIA Voice ID: [id number] Report ID: [id number]
[2019-03-18] MEDS ORDERED: INSULIN GLARGINE 100 UNITS/ML SQ SCH (21:00)
[2019-03-18] MEDS: ATORVASTATIN 40 MG TAB PO SCH (21:00)
[2019-03-19 06:18] LABS: Absolute Monocytes 0.5 K/uL (0.1-1.3); Absolute Neutrophil 3.8 K/uL (1.8-8.0); Eosinophils % 10.5 % (0-4.4); Hematocrit 35.9 % (39.6-49.0); Lymphocytes % 27.9 % (15.3-44.8); MPV 9.7 fL (7.6-11.3); Monocytes % 7.4 % (3.3-12.3); RBC Red Blood Cell Count 5.23 M/uL (4.33-5.43)
[2019-03-19 06:46] LABS: Potassium 4.3 mmol/L (3.5-5.1)
[2019-03-19 08:26] LABS: Blood Morphology Comment NOTED (NOT SEEN); Platelet Estimate ADEQ; Urine White Blood Cell Casts OK
[2019-03-19] MEDS: INSULIN -REGULAR HUMAN 50 UNIT/0.5 ML ML SQ SCH ×4 (08:30→21:21)
[2019-03-19] MEDS: ALLOPURINOL 300 MG TAB PO SCH (09:18)
[2019-03-19] MEDS: ENOXAPARIN 40 MG/0.4 ML SQ SCH (09:19)
[2019-03-19] MEDS: AMLODIPINE 10 MG TAB PO SCH (09:19)
[2019-03-19] MEDS ORDERED: D50W 25 GM/50 ML SYRINGE IV PRN (09:26)
[2019-03-19] MEDS ORDERED: GLUCAGON 1 MG/VIAL IM PRN (09:26)
[2019-03-19] MEDS: GLIPIZIDE S.A. 5 MG TAB PO SCH (10:00)
[2019-03-19] MEDS: NA CHLORIDE 0.9% 1,000 ML IV SCH ×2 (10:21→16:55)
[2019-03-19] MEDS: INSULIN LISPRO 100 UNIT/1 ML SQ SCH ×2 (12:38→16:51)
--- NOTE | 2019-03-19 15:49 | PN ---
Date of Progress Note: 03/19/2019 Subjective: The patient is seen and examined. Chart reviewed and case discussed with RN. The patie nt was sent out of the ICU yesterday. The patient reports that he had a turkey subway sandwich with fatty dressing. He understands that he is not supposed to have food from outside the hospital as we are monitoring his inputs and outputs, and he is under control diet at this time. He voiced understa nding. Medications: List reviewed. Physical Examination: Vital Signs: Temperature 98.3, heart rate 79, blood pressure 168/93, respirations 20, O2 96% on room air. General: Awake, alert, oriented x3. No acute distress. Morbidly obese male. CV: S1 and S2. No murmurs. Regular rate and rhythm. Peripheral pulses present. Respiratory: Moving air well bilaterally. No wheezing or stridor. No use of accessory muscles. Gastrointestinal: Abdomen is soft, nontender, nondistended. Positive bowel sounds. Extremities: No clubbing, cyanosis, or edema. Neurologic: Nonfocal. Laboratory Data: Sodium 131, potassium 4.3, chloride 98, CO2 26, BUN 20, creatinine 1.55, glucose 34 6, calcium 7.5, triglycerides 2809. WBC 7.2, H and H 12.2 and 35.9, platelets 275, neutrophils 52%. Urine culture growing mixed south. Hemoglobin A1c was above the range at this time can not detect, therefore we sent out to [facility]. Assessment And Plan: A 49-year-old male with: 1.Hyperosmolar nonketotic hyperglycemia. The patient may need to be placed back on IV insulin. Tri glycerides have gone up to 2800. The patient was not compliant with his diet, eat outside food. We will adjust insulin dose. We will give 40 units at daytime at pre-meal and monitor a.c. and at bedti me. 2.Hyponatremia, corrected. Sodium is normal. We will restart IV fluids. 3.Hypertriglyceridemia. Continue IV fluids. May need to be switched back to IV insulin. 4.Hypokalemia, corrected. 5.Acute dehydration, resolving. Continue IV fluids. 6.Dizziness, resolved. 7.Unintentional weight loss secondary to uncontrolled diabetes. 8.Acute kidney injury secondary to prerenal azotemia, improving. Creatinine stable. Avoid NSAIDs. Hold lisinopril. 9.Obesity, BMI 39. 10.Essential hypertension, stable. Continue amlodipine. 11.Hyperlipidemia. 12.Deep venous thrombosis prophylaxis with Lovenox. Plan: Adjust insulin dose. Monitor triglyceride levels. Restart IV fluids. KERRI Voice ID: [id number] Report ID: [id number]
[2019-03-19] MEDS ORDERED: INSULIN GLARGINE 100 UNITS/ML SQ SCH (21:00)
[2019-03-19] MEDS: ATORVASTATIN 40 MG TAB PO SCH (21:21)
[2019-03-20] MEDS: NA CHLORIDE 0.9% 1,000 ML IV SCH (02:25)
[2019-03-20 05:26] LABS: Potassium 4.1 mmol/L (3.5-5.1)
[2019-03-20] MEDS: INSULIN LISPRO 100 UNIT/1 ML SQ SCH (08:00)
[2019-03-20] MEDS: ENOXAPARIN 40 MG/0.4 ML SQ SCH (08:24)
[2019-03-20] MEDS: AMLODIPINE 10 MG TAB PO SCH (08:24)
[2019-03-20] MEDS: ALLOPURINOL 300 MG TAB PO SCH (08:25)
[2019-03-20] MEDS: INSULIN -REGULAR HUMAN 50 UNIT/0.5 ML ML SQ SCH (09:04)
[2019-03-20] MEDS: GLIPIZIDE S.A. 5 MG TAB PO SCH (09:05)
--- NOTE | 2019-03-21 05:54 | DS ---
Date of Discharge: 03/20/2019 Admitting Diagnoses: 1.Hyperosmolar nonketotic hyperglycemia. 2.Acute dehydration. 3.Dizziness. 4.Unintentional weight loss. 5.Pseudohyponatremia. 6.Acute kidney injury. 7.Obesity, BMI 39.87. 8.Essential hypertension. 9.Mixed hyperlipidemia. Discharge Diagnoses: 1.Hyperosmolar nonketotic hyperglycemia, resolved. 2.Hyponatremia, corrected. 3.Hypertriglyceridemia. 4.Hypokalemia corrected. 5.Acute dehydration. 6.Dizziness, resolved. 7.Unintentional weight loss secondary to uncontrolled diabetes. 8.Acute kidney injury secondary to prerenal azotemia. 9.Obesity, BMI of 39. 10.Essential hypertension, stable. 11.Hyperlipidemia, stable. Hospital Course: The patient is a 49-year-old male with past medical history of diabetes, who comes in with elevated blood glucose levels. He was found to be in hyperosmolar nonketotic hyperglycemia. He also had elevated triglycerides. The patient was started on IV insulin. His condition improved. The patient did have some pseudohyponatremia, which improved with treatment. The patient was switc hed off IV insulin. He responded well. The patient is noncompliant with his diet. Family bring in food from outside. His hemoglobin A1c was too high to be detected from our lab and was sent out. e patient was initiated on subcutaneous insulin. His symptoms improved. He was able to tolerate his diet. He also had some acute kidney injury which improved with treatment. The patient did not have any acute pneumonia or UTI. The patient overall did well. He was counseled regarding his triglycer ides and his diabetes. He was set up with diabetic education. He also made an appointment with Dr. Garza whom he will be seeing on Wednesday. The patient was then cleared for discharge. He was stable . Condition: Fair. Medications: As per medication reconciliation list. Followup: Follow up with primary care physician in 2 to 3 days. Return to ER for worsening conditio n. Repeat triglyceride levels in 1 week. The patient has a glucometer and supplies the patient to c heck blood glucose levels a.c. and h.s. Call PCP or nurse for questions. Diet: Diabetic diet. Activity: As tolerated. Return to work in 24 hours if blood glucose levels are well controlled. Physical Examination: General: Awake, alert, oriented x3, not in any acute distress. Morbidly obese male. CV: S1, S2. No murmurs. Respiratory: Moving air well bilaterally. No wheezing. Gastrointestinal: Abdomen is soft, nontender, nondistended. Positive bowel sounds. Extremities: No clubbing, cyanosis, or edema. Neuro: Nonfocal. Total time spent discharging the patient was 47 minutes. KERRI Voice ID: [id number] Report ID: [id number]
== END 2019-03-20 11:17 | disposition home or self-care (01) | DRG 638 ==
LOC: ER 12:08 → ERHOLD 16:03 → 3RD-ICU 18:15 → 2ND 03-18 16:15
PROVIDERS: ADMIT Family Medicine; ATTEND Family Medicine
DX: E11.00 Type 2 diabetes mellitus with hyperosmolarity without nonketotic hyperglycemic-hyperosmolar coma (NKHHC) (principal); N17.9 Acute kidney failure, unspecified; E87.1 Hypo-osmolality and hyponatremia; Z68.41 Body mass index [BMI] 40.0-44.9, adult; E86.0 Dehydration; E87.6 Hypokalemia; Z91.11 Patient's noncompliance with dietary regimen; I10 Essential (primary) hypertension; E78.1 Pure hyperglyceridemia; E78.2 Mixed hyperlipidemia; E66.9 Obesity, unspecified; Z83.3 Family history of diabetes mellitus; Z79.84 Long term (current) use of oral hypoglycemic drugs
CPT/HCPCS: 36415; 80048; 80061; 81003; 81015; 82010; 82805; 82947; 82962; 83735; 84100; 84478; 85025; 87086; 87088; 93005; 96361; 96372; 96374; 99285; J1650; J7030

== ENCOUNTER 2020-04-21 22:29 | Emergency (ER) | payer BC ==
[2020-04-21] MEDS ORDERED: NA CHLORIDE 0.9% 1,000 ML ONE (22:58)
[2020-04-21 23:08] LABS: Absolute Lymphocytes (CBC) 1.9 K/uL (0.7-4.9); Basophils % 0.7 % (0-1.3); Hematocrit 42.2 % (39.6-49.0); MPV 9.6 fL (7.6-11.3); RBC Red Blood Cell Count 5.68 M/uL (4.33-5.43)
[2020-04-21 23:52] LABS: ALT/SGPT 23 U/L (12-78); AST/SGOT 13 U/L (15-37); Albumin 3.3 g/dL (3.4-5.0); Alkaline Phosphatase 117 U/L (45-117); Amylase 35 U/L (25-115); BUN Blood Urea Nitrogen 15 mg/dL (7-18); Bicarbonate 33 mmol/L (21-32); Bilirubin Direct 0.1 mg/dL (0-0.2); Bilirubin Total 0.7 mg/dL (0.2-1.0); Lipase 107 U/L (73-393); Potassium 4.2 mmol/L (3.5-5.1); Protein, Total 7.8 g/dL (6.4-8.2); Sodium Level 135 mmol/L (136-145); Troponin (Emerg Dept Use Only) < 0.02 ng/mL (0.0-0.045)
[2020-04-21 23:53] LABS: Glucose Level 405 mg/dL (74-106)
[2020-04-21 23:57] LABS: Blood Morphology Comment NOTED (NOT SEEN); Platelet Estimate ADEQ; Polychromasia 1+; Urine White Blood Cell Casts OK
[2020-04-22] MEDS ORDERED: NA CHLORIDE 0.9% 1,000 ML ONE (00:31)
[2020-04-22] MEDS ORDERED: INSULIN -REGULAR HUMAN 50 UNIT/0.5 ML ML ONE (00:31)
[2020-04-22 01:24] LABS: Urine Blood NEGATIVE (NEG); Urine Glucose NEGATIVE (NEG); Urine Protein NEGATIVE (NEG)
--- NOTE | 2020-04-22 01:52 | ER ---
Nurse's Notes [facility] Name: Russel Sotelo Age: 50 yrs Sex: Male : 1970 Arrival Date: 04/21/2020 Time: 22:31 Bed 8 Private MD: Diagnosis: Diabetes with Hyperglycemia Presentation: 04/21 22:38 Chief complaint: Patient states: PATIENT TAKES INSULIN FOR DIABETES. TODAY HIS SUGAR IS rv HIGH, RECENT VALUE IS 410. COMPLAINING OF EXHAUSTION, NAUSEA WITHOUT VOMITING, VISUAL DISTURBANCES. DENIES ANY PAIN. Coronavirus screen: Proceed with normal triage. Ebola Screen: No symptoms or risks identified at this time. Initial Sepsis Screen: Does the patient meet any 2 criteria? No. Patient's initial sepsis screen is negative. Does the patient have a suspected source of infection? No. Patient's initial sepsis screen is negative. Risk Assessment: Do you want to hurt yourself or someone else? Patient reports no desire to harm self or others. Onset of symptoms was April 21, 2020 at 08:00. 22:38 Method Of Arrival: Ambulatory rv 22:38 Acuity: TRUE 3 rv Triage Assessment: 22:41 General: Appears uncomfortable, Behavior is calm, cooperative. Pain: Denies pain. EENT: rv No signs and/or symptoms were reported regarding the EENT system. Neuro: Level of Consciousness is awake, alert, obeys commands, Oriented to person, place, time, situation. Cardiovascular: Patient's skin is warm and dry. Respiratory: Airway is patent Respiratory effort is even, unlabored, Respiratory pattern is regular, symmetrical. GI: Abdomen is round. Derm: Skin is intact. Historical: - Allergies: 22:41 No Known Allergies; rv - PMHx: 22:41 Diabetes - NIDDM; Hyperlipidemia; Hypertension; rv - PSHx: 22:41 None; rv - Immunization history:: Adult Immunizations up to date. - Social history:: Smoking status: Patient denies any tobacco usage or history of. Screenin:47 Abuse screen: Denies threats or abuse. Denies injuries from another. Nutritional rv screening: No deficits noted. Tuberculosis screening: No symptoms or risk factors identified. Fall Risk None identified. Assessment: 04/22 00:35 Reassessment: Patient and/or family updated on plan of care and expected duration. Pain rv level reassessed. Patient is alert, oriented x 3, equal unlabored respirations, skin warm/dry/pink. Patient states feeling better. 01:24 Reassessment: Patient and/or family updated on plan of care and expected duration. Pain rv level reassessed. Patient is alert, oriented x 3, equal unlabored respirations, skin warm/dry/pink. Patient denies pain at this time. Patient states feeling better. Patient states symptoms have improved. Vital Signs: 04/21 22:38 BP 163 / 90; Pulse 97; Resp 20; Temp 98.4(O); Pulse Ox 93% on R/A; Weight 145.15 kg; rv Height 5 ft. 9 in. (175.26 cm); Pain 0/10; 23:00 BP 131 / 74; Pulse 96; Resp 19; Pulse Ox 94% on R/A; rv 23:04 Pulse Ox 98% on 2 lpm NC; rv 04/22 00:00 BP 131 / 74; Pulse 87; Resp 17; Pulse Ox 99% on 2 lpm NC; rv 01:00 BP 139 / 71; Pulse 90; Resp 18; Pulse Ox 99% on 2 lpm NC; rv 04/21 22:38 Body Mass Index 47.26 (145.15 kg, 175.26 cm) rv ED Course: 04/21 22:31 Patient arrived in ED. cl3 22:33 Amanuel Ridley, OLAYINKA is Primary Nurse. rv 22:36 Fahad Jane MD is Attending Physician. mh7 22:41 Triage completed. rv 22:47 Arm band placed on Patient placed in the treatment room, on a stretcher, Patient rv notified of wait time. 22:47 Patient has correct armband on for positive identification. Bed in low position. Call rv light in reach. Side rails up X 1. bag grader on. Pulse ox on. NIBP on. 22:52 Inserted saline lock: 20 gauge in right antecubital area, using aseptic technique. rv ,using aseptic technique. BY [facility]. 04/22 02:03 No provider procedures requiring assistance completed. IV discontinued, intact, jb4 bleeding controlled, No redness/swelling at site. Pressure dressing applied. Administered Medications: 04/21 22:52 Drug: NS 0.9% 1000 ml Route: IV; Rate: 1000 ml; Site: right antecubital; rv 04/22 00:07 Follow up: IV Status: Completed infusion; IV Intake: 1000ml rv 00:31 Drug: NS 0.9% 1000 ml Route: IV; Rate: 1000 ml; Site: right antecubital; rv 02:05 Follow up: IV Status: Completed infusion; IV Intake: 500ml rv 00:32 Drug: Insulin Regular Human 10 units {Co-Signature: alf (Pedro Luis Bearden RN).} Route: rv Sub-Q; Site: abdomen; 01:23 Follow up: Response: No adverse reaction; Blood sugar is lowered rv Intake: 00:07 IV: 1000ml; Total: 1000ml. rv 02:05 IV: 500ml; Total: 1500ml. rv Outcome: 01:52 Discharge ordered by . sharad 02:03 Discharged to home ambulatory. jb4 02:03 Condition: stable 02:03 Discharge instructions given to patient, Instructed on discharge instructions, follow up and referral plans. Demonstrated understanding of instructions, follow-up care. 02:04 Patient left the ED. jb4 Signatures: Pedro Luis Bearden RN RN jb4 Amanuel Ridley RN RN rv Lewis, Charde cl3 Fahad Jane MD MD mh7 Pedro Luis Bearden RN jb4
--- NOTE | 2020-04-22 01:53 | EDPHYS ---
Physician Documentation [facility] Name: Russel Sotelo Age: 50 yrs Sex: Male : 1970 Arrival Date: 04/21/2020 Time: 22:31 Bed 8 Private MD: ED Physician Fahad Jane HPI: 04/21 22:56 This 50 yrs old Black Male presents to ER via Ambulatory with complaints of High Blood mh7 Sugar. 22:56 The patient or guardian reports hyperglycemia, polydipsia, polyuria, that was mh7 potentially precipitated by no particular event, with the patient's symptoms witnessed by no one. Onset: The symptoms/episode began/occurred 3 week(s) ago. Associated signs and symptoms: Pertinent positives: nausea, polydipsia, polyuria, Pertinent negatives: anorexia, constipation, decreased urine output, diaphoresis, diarrhea, dry skin, hair loss, seizure activity, skin flushing, urinary incontinence, vomiting. Current symptoms: In the emergency department the patient's symptoms are unchanged from the initial presentation. The patient has experienced similar episodes in the past, a few times. Historical: - Allergies: 22:41 No Known Allergies; rv - PMHx: 22:41 Diabetes - NIDDM; Hyperlipidemia; Hypertension; rv - PSHx: 22:41 None; rv - Immunization history:: Adult Immunizations up to date. - Social history:: Smoking status: Patient denies any tobacco usage or history of. ROS: 22:56 Constitutional: Negative for fever, chills, and weight loss, Eyes: Negative for injury, mh7 pain, redness, and discharge, ENT: Negative for injury, pain, and discharge, Neck: Negative for injury, pain, and swelling, Cardiovascular: Negative for chest pain, palpitations, and edema, Respiratory: Negative for shortness of breath, cough, wheezing, and pleuritic chest pain, Back: Negative for injury and pain, MS/Extremity: Negative for injury and deformity, Skin: Negative for injury, rash, and discoloration, Neuro: Negative for headache, weakness, numbness, tingling, and seizure, Psych: Negative for depression, anxiety, suicide ideation, homicidal ideation, and hallucinations, Allergy/Immunology: Negative for hives, rash, and allergies, Hematologic/Lymphatic: Negative for swollen nodes, abnormal bleeding, and unusual bruising. Exam: 22:56 Constitutional: This is a well developed, well nourished patient who is awake, alert, mh7 and in no acute distress. Head/Face: Normocephalic, atraumatic. Eyes: Pupils equal round and reactive to light, extra-ocular motions intact. Lids and lashes normal. Conjunctiva and sclera are non-icteric and not injected. Cornea within normal limits. Periorbital areas with no swelling, redness, or edema. Neck: Trachea midline, no thyromegaly or masses palpated, and no cervical lymphadenopathy. Supple, full range of motion without nuchal rigidity, or vertebral point tenderness. No Meningismus. Chest/axilla: Normal chest wall appearance and motion. Nontender with no deformity. No lesions are appreciated. Cardiovascular: Regular rate and rhythm with a normal S1 and S2. No gallops, murmurs, or rubs. Normal PMI, no JVD. No pulse deficits. Respiratory: Lungs have equal breath sounds bilaterally, clear to auscultation and percussion. No rales, rhonchi or wheezes noted. No increased work of breathing, no retractions or nasal flaring. Abdomen/GI: Soft, non-tender, with normal bowel sounds. No distension or tympany. No guarding or rebound. No evidence of tenderness throughout. Back: No spinal tenderness. No costovertebral tenderness. Full range of motion. Skin: Warm, dry with normal turgor. Normal color with no rashes, no lesions, and no evidence of cellulitis. MS/ Extremity: Pulses equal, no cyanosis. Neurovascular intact. Full, normal range of motion. Neuro: Awake and alert, GCS 15, oriented to person, place, time, and situation. Cranial nerves II-XII grossly intact. Motor strength 5/5 in all extremities. Sensory grossly intact. Cerebellar exam normal. Normal gait. Psych: Awake, alert, with orientation to person, place and time. Behavior, mood, and affect are within normal limits. 23:00 ECG was reviewed by the Attending Physician. [facility] Vital Signs: 22:38 BP 163 / 90; Pulse 97; Resp 20; Temp 98.4(O); Pulse Ox 93% on R/A; Weight 145.15 kg; rv Height 5 ft. 9 in. (175.26 cm); Pain 0/10; 23:00 BP 131 / 74; Pulse 96; Resp 19; Pulse Ox 94% on R/A; rv 23:04 Pulse Ox 98% on 2 lpm NC; rv 04/22 00:00 BP 131 / 74; Pulse 87; Resp 17; Pulse Ox 99% on 2 lpm NC; rv 01:00 BP 139 / 71; Pulse 90; Resp 18; Pulse Ox 99% on 2 lpm NC; rv 04/21 22:38 Body Mass Index 47.26 (145.15 kg, 175.26 cm) rv MDM: 04/21 22:46 Patient medically screened. 7 04/22 01:49 Differential diagnosis: diabetes insipidus, DKA, hyperglycemia, Medication 7 noncompliance, Diet non compliance. Data reviewed: vital signs, nurses notes, old medical records, lab test result(s), EKG. Data interpreted: front desk monitor: rate is 90 beats/min, rhythm is normal sinus rhythm, regular, Interpretation: normal rate, normal rhythm, Pulse oximetry: on room air is 99 %. Interpretation: normal. Counseling: I had a detailed discussion with the patient and/or guardian regarding: the historical points, exam findings, and any diagnostic results supporting the discharge/admit diagnosis, the presence of at least one elevated blood pressure reading (>120/80) during this emergency department visit, lab results, the need for outpatient follow up, to return to the emergency department if symptoms worsen or persist or if there are any questions or concerns that arise at home. Response to treatment: the patient's symptoms have resolved after treatment, the patient's blood pressure is in an acceptable range, mental status has returned to baseline, the patient no longer shows bradycardia, the patient is not short of breath, the patient is not tachycardic, the patient's pain is gone, the patient's temperature has normalized. 04/21 22:47 Order name: Acetone, Serum; Complete Time: 23:59 [facility] 04/21 22:47 Order name: Amylase, Serum; Complete Time: 23:59 [facility] 04/21 22:47 Order name: Basic Metabolic Panel; Complete Time: 23:59 [facility] 04/21 22:47 Order name: CBC with Diff; Complete Time: 23:59 [facility] 04/21 22:47 Order name: Hepatic Function; Complete Time: 23:59 [facility] 06/07 22:47 Order name: Lipase; Complete Time: 23:59 mh7 07 22:47 Order name: Phosphorus; Complete Time: 23:59 mh7 07 23:00 Order name: Glucose, Ancillary Testing; Complete Time: 23:10 EDMS 07 23:15 Order name: CBC Smear Scan; Complete Time: 23:59 EDMS 07 23:18 Order name: Troponin (Emerg Dept Use Only); Complete Time: 23:59 EDMS 08 00:16 Order name: Urine Dipstick--Ancillary (enter results); Complete Time: 01:30 mw2 08 01:32 Order name: Glucose, Ancillary Testing; Complete Time: 01:49 EDMS 07 22:47 Order name: EKG; Complete Time: 22:48 mh7 07 22:47 Order name: Cardiac monitoring; Complete Time: 22:52 mh7 07 22:47 Order name: EKG - Nurse/Tech; Complete Time: 22:52 mh7 07 22:47 Order name: IV Saline Lock; Complete Time: 22:52 mh7 07 22:47 Order name: NPO; Complete Time: 22:52 mh7 07 22:47 Order name: O2 Per Protocol; Complete Time: 22:52 mh7 07 22:47 Order name: O2 Sat Monitoring; Complete Time: 22:52 mh7 07 23:23 Order name: Urine Dipstick-Ancillary (obtain specimen); Complete Time: 00:37 mh7 EC/07 23:00 Rate is 95 beats/min. Rhythm is regular, Normal Sinus Rhythm. QRS [place] is Normal. NC mh7 interval is normal. QRS interval is normal. QT interval is prolonged at 467 msec. No Q waves. T waves are Flattened in leads III, aVL, aVF, V6. No ST changes noted. Clinical impression: NSR w/ Non-specific ST/T Changes. Administered Medications: 22:52 Drug: NS 0.9% 1000 ml Route: IV; Rate: 1000 ml; Site: right antecubital; rv 04/22 00:07 Follow up: IV Status: Completed infusion; IV Intake: 1000ml rv 00:31 Drug: NS 0.9% 1000 ml Route: IV; Rate: 1000 ml; Site: right antecubital; rv 02:05 Follow up: IV Status: Completed infusion; IV Intake: 500ml rv 00:32 Drug: Insulin Regular Human 10 units {Co-Signature: alf (Pedro Luis Bearden RN).} Route: rv Sub-Q; Site: abdomen; 01:23 Follow up: Response: No adverse reaction; Blood sugar is lowered rv Disposition: 04/22/20 01:52 Discharged to Home. Impression: Diabetes with Hyperglycemia. - Condition is Stable. - Discharge Instructions: Diabetes Mellitus and Food, Hyperglycemia, Zabw-qi-Eqdn, Tips for Eating Away From Home If You Have Diabetes, How to Avoid Diabetes Problems. - Work release form, Medication Reconciliation Form, Thank You Letter, Antibiotic Education, Prescription Opioid Use form. - Follow up: Private Physician; When: 1 - 2 days; Reason: Worsening of condition, Recheck today's complaints, Re-evaluation by your physician. - Problem is an acute exacerbation. - Symptoms have improved. Signatures: Dispatcher [employer] Pedro Luis Luis RN RN jb4 Amanuel Ridley RN RN Fahad Jane MD MD mh7 Pedro Luis Bearden RN jb4 Corrections: (The following items were deleted from the chart) 04/21 23:17 23:08 TROPONIN (EMERG DEPT USE ONLY)+C.LAB.BRZ ordered. [facility] 04/22 02:04 01:52 04/22/2020 01:52 Discharged to Home. Impression: Diabetes with Hyperglycemia. jb4 Condition is Stable. Forms are Medication Reconciliation Form, Thank You Letter, Antibiotic Education, Prescription Opioid Use. Follow up: Private Physician; When: 1 - 2 days; Reason: Worsening of condition, Recheck today's complaints, Re-evaluation by your physician. Problem is an acute exacerbation. Symptoms have improved. mh7
[2020-04-22 02:16] VITALS: O2SAT 99
[2020-04-22 02:17] VITALS: BP 139/71
[2020-04-22 02:46] VITALS: TEMP 98.4
--- NOTE | 2020-04-22 07:45 | EKG ---
Test Date: 2020-04-21 Test Time: 22:52:23 Lead Assistant Manager: DIANNE MEASUREMENT RESULTS: Intervals: Rate: 95 AL: 136 QRSD: 90 QT: 372 QTc: 467 Joshua: P: 49 AL: 136 QRS: -22 T: 11 INTERPRETIVE STATEMENTS: Normal sinus rhythm Nonspecific T wave abnormality Prolonged QT Abnormal ECG Compared to ECG 03/17/2019 12:46:11 T-wave abnormality now present Prolonged QT interval now present Electronically Signed On 04-22-20 07:44:32 CDT by Jeremy Jones
== END 2020-04-22 02:04 | disposition home or self-care (01) ==
LOC: ER 22:29
DX: E11.65 Type 2 diabetes mellitus with hyperglycemia (principal); I10 Essential (primary) hypertension
CPT/HCPCS: 96361; 93005; 85025; 80048; 36415; 82010; 82150; 84100; 82947 ×2; 80076; 81003; 84484; 83690; 96360; 96372; 99284; J7030 ×2

== ENCOUNTER 2020-08-02 09:58 | Emergency (ER) | payer BC ==
--- OUTSIDE RECORDS SUMMARY | 2020-08-02 10:00 | XMS REPORT | Continuity of Care Document ---
:1970 Author Organization [facility] t Address [address] [place] [address] Care Team Providers Name Role Phone Whitney RN, A Attending Clinician Unavailable Problems This patient has no known problems. Allergies, Adverse Reactions, Alerts This patient has no known allergies or adverse reactions. Medications This patient has no known medications. Procedures This patient has no known procedures. Encounters Start End Encounter Admission Attending Care Care Encounter Source Date/Time Date/Time Type Type Clinicians Facility Department ID 2020-07-30 2020-07-30 Transition Adele Olson [id number] 00:00:00 00:00:00 of Care Donnie Jade [id number] [place] [id number] Results This patient has no known results.
--- OUTSIDE RECORDS SUMMARY | 2020-08-02 10:00 | XMS REPORT | Summary of Care ---
:1970 Author Organization [facility] [[email or web address]] - Health Address [address] [place] [id number] Care Team Providers Name Role Phone Ronda Steward Primary Care Provider Reason for Visit Reason Comments Transition Of Care Encounter Details Date Type Department Care Team Description 07/30/2020 [facility] [address] [id number] Allergies No Known Allergiesdocumented as of this encounter (statuses as of 07/30/2020) Medications Medication Sig Dispensed Refills Start Date End Date Status metformin ER 500 mg 24 Take 500 mg by 0 Active hr tablet mouth daily with breakfast. fenofibrate 54 mg Take 54 mg by 0 Active tablet mouth daily. atorvastatin 40 mg Take 40 mg by 0 Active tablet mouth at bedtime. allopurinoL 100 mg Take 300 mg by 0 Active tablet mouth daily. glipiZIDE 10 mg tablet Take 10 mg by 0 Active mouth daily. aspirin 81 mg chewable Take 1 tablet by 30 tablet 0 07/30/2020 Active tabletIndications: mouth daily. Hypertension, unspecified type carvediloL 12.5 mg Take 1 tablet by 60 tablet 0 07/29/2020 Active tabletIndications: mouth 2 (two) Hypertension, times daily with unspecified type meals. documented as of this encounter (statuses as of 07/30/2020) Active Problems Problem Noted Date NSVT (nonsustained ventricular tachycardia) 07/29/2020 Acute diastolic congestive heart failure 07/28/2020 Hypertensive emergency 07/28/2020 Other hyperlipidemia 07/28/2020 Type 2 diabetes mellitus without complication, without long-term current 07/28/2020 use of insulin Hypoxia 07/27/2020 Morbid obesity with body mass index of 40.0-49.9 07/27 documented as of this encounter (statuses as of 07/30/2020) Social History Tobacco Use Types Packs/Day Years Used Date Never Smoker Smokeless Tobacco: Never Used Alcohol Use Drinks/Week oz/Week Comments Not Currently Sex Assigned at Date Recorded Not on file COVID-19 Exposure Response Date Recorded In the last month, have you been in contact with No / Unsure 07/27/2020 3:29 PM CDT someone who was confirmed or suspected to have Coronavirus / COVID-19? documented as of this encounter Last Filed Vital Signs Not on filedocumented in this encounter Miscellaneous Notes Telephone Encounter - Donnie Olson RN - 07/30/2020 12:38 PM CDT TRANSITIONAL CARE MANAGEMENT ASSESSMENT 07/30/2020 Russel Sotelo [id number] Russel Sotelo is a 50 year old Black or male was admitted on 07/27/20 to [facility], ADC MED SURG. He was discharged on 07/29/20 with discharge disposition of HR- Routine Discharge. Admitting Physician: Marvin Skinner Discharge Diagnosis: Hypertensive emergency Linked Episodes Type: Episode: Status: Noted: Resolved: Last update: Updated by: TRANSITION OF CARE TCM Active 07/29/2020 07/30/2020 12:33 PM Donnie Olson, RN Comments: TCM Sma-winq-po-face outreach documentation: Discharge Assessment Chart Assessed: 07/30/20 TCM Outreach Completed: 07/30/20 Do you have a few minutes to speak with me about how you are doing at home?: Yes(Pt states he is doing good, but has been feeling anxious.) Discharge Instructions Do you understand your at-home instructions?: Yes(No questions at this time.) Medications Have you filled your prescriptions and do you have them in your home? : Yes Do you know how to take your medications?: Yes(No questions.) Can you provide me with the names or descriptions of any slci-ltf-vwufpiq or supplements you are currently taking?: Patient declined Supplies Did you receive applicable home medical supplies/equipment?: N/A Follow Up Appointment Has a follow up appointment been scheduled?: Yes Do you have any questions about your follow up appointments?: No Are you able to get to your appointment? Who will be taking you?: Yes(self) Home Health Assistance Has the home health nurse contacted you since you've been home?: N/A Survey - Recognition Is there anything you would like to share about your recent hospitalization, or anyone you would like to recognize?: No Do you have any suggestions for improvement?: No Do you have any other questions or concerns at this time?: No Future Appointments: Future Appointments Provider Department Dept Phone 08/20/2020 2:20 PM Milagro James MD [facility] [phone] COVID-19 It is noted in the discharge summary that you were tested for COVID 19. Did your physician discuss the results of this test with you? yes Do you have any questions about your test results? no What instructions did you receive from your physician? prevention Do you have any questions about your discharge instructions related to COVID 19? no Should you have any other questions or concerns, you may call the [facility] at [phone] or toll free [phone] for further guidance. documented in this encounter Plan of Treatment Date Type Specialty Care Team Description 08/20/2020 Office Visit Cardiology Milagro James M D [address] [place] [address] [phone] Health Maintenance Due Date Last Done Comments PNEUMOCOCCAL 0-64 YEARS COMBINED 1975 SERIES (1 of 1 - PPSV23) EYE EXAM 1979 URINE MICROALBUMIN 1979 Depression Screening 1981 FOOT EXAM 1987 DTaP,Tdap,and Td Vaccines (1 - Tdap) 01/18/1988 COLON CANCER SCREENING ANNUAL 2019 FIT/FOBT COLON CANCER SCREENING FIT DNA EVERY 2019 3 YEARS COLON CANCER SCREENING SIGMOIDOSCOPY 2019 EVERY 5 YEARS COLONOSCOPY 2019 Colorectal Cancer Screening 2019 Zoster Recombinant Vaccine (SHINGRIX) 2019 (1 of 2) INFLUENZA VACCINE (#1) 2020 HgA1C 01/24/2021 07/27/2020 LDL-C 07/27/2021 07/27/2020 CREATININE (SERUM) 07/29/2021 07/29/2020, 07/28/2020, 07/27/2020 documented as of this encounter Results Not on filedocumented in this encounter Insurance Payer Benefit Plan Subscriber ID Effective Dates Phone Address Type / Group BC [facility] [id number] 2019-Lesia [phone] [address] PPO/POS [place] - OUT OF t 7 [id number] [place] [address] [facility] [place] PLAN Effective for Cherelle HARRIS PAYOR all dates documented as of this encounter
[2020-08-02 10:36] LABS: Absolute Lymphocytes (CBC) 1.9 K/uL (0.7-4.9); Basophils % 0.7 % (0-1.3); Hematocrit 36.9 % (39.6-49.0); Lymphocytes % 18.7 % (15.3-44.8); MPV 8.9 fL (7.6-11.3); RBC Red Blood Cell Count 4.95 M/uL (4.33-5.43)
[2020-08-02 10:37] LABS: Protime INR 0.98
[2020-08-02 10:54] LABS: Albumin 3.3 g/dL (3.4-5.0); Bilirubin Direct 0.2 mg/dL (0-0.2); Bilirubin Total 0.7 mg/dL (0.2-1.0); Potassium 3.8 mmol/L (3.5-5.1)
[2020-08-02 10:55] LABS: Troponin (Emerg Dept Use Only) 0.02 ng/mL (0.0-0.045)
[2020-08-02] MEDS ORDERED: NA CHLORIDE 0.9% 1,000 ML ONE (11:03)
--- NOTE | 2020-08-02 11:50 | RAD REPORT ---
EXAM DESCRIPTION: RAD - Chest Single View - 08/02/2020 10:49 am CLINICAL HISTORY: CHEST PAINchest pain, shortness of breath COMPARISON: None TECHNIQUE: AP portable chest image was obtained 08/02/2020 10:49 am . FINDINGS: Lung volumes are low. No peripheral mass consolidation. Vasculature is mildly prominent. I nterstitial markings are mildly prominent. Baseline for the patient is unknown. Heart size is normal. No measurable pleural effusion and no pneumothorax. No acute bony abnormality seen. No acute aortic findings suspected. IMPRESSION: No peripheral mass or consolidation. Interstitial markings and vasculature are mildly prominent. This is probably baseline though minimal edema or infiltrate, particularly left base, cannot be excluded.
[2020-08-02] MEDS ORDERED: DIAZEPAM 5 MG TABLET ONE (12:03)
--- NOTE | 2020-08-02 12:06 | EDPHYS ---
Physician Documentation [facility] Name: Russel Sotelo Age: 50 yrs Sex: Male : 1970 Arrival Date: 08/02/2020 Time: 09:59 Bed 6 Private MD: Amairani Steward ED Physician Brendon Hickman HPI: 08/02 19:25 This 50 yrs old Black Male presents to ER via Wheelchair with complaints of kdr Palpitations, Anxiety, Shortness Of Breath. 19:25 The patient presents with a history of heart racing. Context: The symptoms occur at kdr rest, with anxiety. Onset: The symptoms/episode began/occurred gradually, 4 day(s) ago. Duration: The patient or guardian reports multiple episodes, that are intermittent, that wax and wane, with no pattern. Modifying factors: The symptoms are aggravated by anxiety, The symptoms are alleviated by nothing. Associated signs and symptoms: The patient has no apparent associated signs or symptoms. Severity of symptoms: At their worst the symptoms were mild moderate just prior to arrival, in the emergency department the symptoms are unchanged. The patient has not experienced similar symptoms in the past. The patient has been recently seen by a physician: Was started on a new medication which he thinks is the cause of his current feelings of anxiety. Historical: - Allergies: 10:09 No Known Allergies; sv - Home Meds: 10:26 aspirin 81 mg Oral TbEC 1 tab once daily [Active]; carvedilol 12.5 mg oral tab 1 tab 2 iw times per day [Active]; allopurinol 300 mg Oral tab 1 tab once daily [Active]; atorvastatin 40 mg oral tab 1 tab once daily [Active]; fenofibrate 54 mg oral tab 1 tab once daily [Active]; glipizide 10 mg Oral tab 1 tab once daily [Active]; metformin 500 mg Oral tr24 1 tab once daily [Active]; - PMHx: 10:09 Diabetes - NIDDM; Hyperlipidemia; Hypertension; CHF; minor kidney problems; sv - PSHx: 10:09 None; sv - Immunization history:: Adult Immunizations up to date. - Social history:: Smoking status: . ROS: 19:25 Constitutional: Negative for fever, chills, and weight loss, Eyes: Negative for injury, kdr pain, redness, and discharge, Neck: Negative for injury, pain, and swelling, Respiratory: Negative for shortness of breath, cough, wheezing, and pleuritic chest pain, Abdomen/GI: Negative for abdominal pain, nausea, vomiting, diarrhea, and constipation, Back: Negative for injury and pain, : Negative for injury, bleeding, discharge, and swelling, MS/Extremity: Negative for injury and deformity, Skin: Negative for injury, rash, and discoloration, Neuro: Negative for headache, weakness, numbness, tingling, and seizure activity. Allergy/Immunology: Negative for hives, rash, and allergies, Endocrine: Negative for neck swelling, polydipsia, polyuria, polyphagia, and marked weight changes, Hematologic/Lymphatic: Negative for swollen nodes, abnormal bleeding, and unusual bruising. 19:25 Cardiovascular: Positive for palpitations, Negative for chest pain, edema, orthopnea, acute changes. 19:25 Psych: Positive for anxiety, Negative for depression, drug dependence, alcohol dependence, auditory hallucinations, visual hallucinations, homicidal ideation, insomnia, suicide gesture, suicidal ideation. Exam: 10:19 ECG was reviewed by the Attending Physician. kdr 19:25 Constitutional: This is a well developed, well nourished patient who is awake, alert, kdr and in no acute distress. Head/Face: Normocephalic, atraumatic. Eyes: Pupils equal round and reactive to light, extra-ocular motions intact. Lids and lashes normal. Conjunctiva and sclera are non-icteric and not injected. Cornea within normal limits. Periorbital areas with no swelling, redness, or edema. Neck: Trachea midline, no thyromegaly or masses palpated, and no cervical lymphadenopathy. Supple, full range of motion without nuchal rigidity, or vertebral point tenderness. No Meningismus. Chest/axilla: Normal chest wall appearance and motion. Nontender with no deformity. No lesions are appreciated. Cardiovascular: Regular rate and rhythm with a normal S1 and S2. No gallops, murmurs, or rubs. Normal PMI, no JVD. No pulse deficits. Respiratory: Lungs have equal breath sounds bilaterally, clear to auscultation and percussion. No rales, rhonchi or wheezes noted. No increased work of breathing, no retractions or nasal flaring. Abdomen/GI: Soft, non-tender, with normal bowel sounds. No distension or tympany. No guarding or rebound. No evidence of tenderness throughout. Back: No spinal tenderness. No costovertebral tenderness. Full range of motion. Skin: Warm, dry with normal turgor. Normal color with no rashes, no lesions, and no evidence of cellulitis. MS/ Extremity: Pulses equal, no cyanosis. Neurovascular intact. Full, normal range of motion. Neuro: Awake and alert, GCS 15, oriented to person, place, time, and situation. Cranial nerves II-XII grossly intact. Motor strength 5/5 in all extremities. Sensory grossly intact. Cerebellar exam normal. Normal gait. 19:25 Psych: Behavior/mood is pleasant, cooperative, anxious. Vital Signs: 10:00 Pulse 96; Resp 22; Pulse Ox 97% ; Weight 140.61 kg; Height 5 ft. 9 in. (175.26 cm); sv 10:21 BP 170 / 98; Pulse 86; Resp 20 S; Pulse Ox 100% on R/A; iw 11:07 BP 173 / 101; Pulse 87; Resp 17; Pulse Ox 98% on R/A; em 12:00 BP 158 / 94; Pulse 87; Resp 18; Pulse Ox 97% on R/A; em 10:00 Body Mass Index 45.78 (140.61 kg, 175.26 cm) sv MDM: 12:05 Patient medically screened. kdr 19:25 Data reviewed: vital signs, nurses notes. Counseling: I had a detailed discussion with kdr the patient and/or guardian regarding: the historical points, exam findings, and any diagnostic results supporting the discharge/admit diagnosis, the need for outpatient follow up. 08/02 10:12 Order name: Basic Metabolic Panel bp 08/02 10:12 Order name: CBC with Diff bp 08/02 10:12 Order name: LFT's bp 08/02 10:12 Order name: Magnesium bp 08/02 10:12 Order name: NT PRO-BNP bp 08/02 10:12 Order name: PT-INR bp 08/02 10:12 Order name: Troponin (emerg Dept Use Only) bp 08/02 10:12 Order name: XRAY Chest (1 view) bp 08/02 10:12 Order name: EKG; Complete Time: 10:12 bp 08/02 10:12 Order name: Cardiac monitoring; Complete Time: 10:28 bp 08/02 10:12 Order name: EKG - Nurse/Tech; Complete Time: 10:16 bp 08/02 10:12 Order name: IV Saline Lock; Complete Time: 10: bp 08/02 10:12 Order name: Labs collected and sent; Complete Time: : bp 08/02 10:12 Order name: O2 Per Protocol; Complete Time: 10:16 bp 08/02 10:12 Order name: O2 Sat Monitoring; Complete Time: :16 bp EC:19 Rate is 91 beats/min. Rhythm is regular, Normal Sinus Rhythm with No ectopy. QRS [place] kdr is Normal. NM interval is normal. QRS interval is normal. QT interval is normal. No Q waves. T waves are Normal. Clinical impression: Normal ECG. Administered Medications: 12:05 Drug: Valium 5 mg Route: PO; em 12:20 Follow up: Response: No adverse reaction em Disposition: 08/02/20 12:05 Discharged to Home. Impression: Anxiety disorder, unspecified. - Condition is Stable. - Discharge Instructions: Panic Attacks, Social Anxiety Disorder. - Prescriptions for Ativan 1 mg Oral Tablet - take 1 tablet by ORAL route every 8 hours As needed; 3 tablet. - Medication Reconciliation Form, Thank You Letter form. - Follow up: Amairani Steward MD; When: 48 Hours; Reason: If symptoms return, Further diagnostic work-up, Recheck today's complaints, Continuance of care, Re-evaluation by your physician. - Problem is new. - Symptoms have improved. Signatures: Dispatcher [employer] Annel Herrera RN RN sv Rittger, Kevin, MD MD [facility] Juan C Meng RN RN em Arlette Browne, OLAYINKA BHAGAT iw Donnell Alcala RN RN bp Corrections: (The following items were deleted from the chart) 12:45 12:05 08/02/2020 12:05 Discharged to Home. Impression: Anxiety disorder, unspecified. em Condition is Stable. Forms are Medication Reconciliation Form, Thank You Letter, Antibiotic Education, Prescription Opioid Use. Follow up: Amairani Steward; When: 48 Hours; Reason: If symptoms return, Further diagnostic work-up, Recheck today's complaints, Continuance of care, Re-evaluation by your physician. Problem is new. Symptoms have improved. kdr
--- NOTE | 2020-08-02 12:06 | ER ---
Nurse's Notes [facility] Name: Russel Sotelo Age: 50 yrs Sex: Male : 1970 Arrival Date: 08/02/2020 Time: 09:59 Bed 6 Private MD: Amairani Steward Diagnosis: Anxiety disorder, unspecified Presentation: 08/02 10:00 Chief complaint: Patient states: today started having palpitations, anxiety, and mild sv SOB. Pt states "I think its my anxiety." Reports recently starting Cardura on Sat for CHF. Denies dizziness/blurry vision/CP. Coronavirus screen: Client denies travel out of the [place] in the last 14 days. At this time, the client does not indicate any symptoms associated with coronavirus-19. Ebola Screen: No symptoms or risks identified at this time. Initial Sepsis Screen: Does the patient meet any 2 criteria? RR > 20 per min. No. Patient's initial sepsis screen is negative. Does the patient have a suspected source of infection? No. Patient's initial sepsis screen is negative. Risk Assessment: Do you want to hurt yourself or someone else? Patient reports no desire to harm self or others. Onset of symptoms was August 02, 2020. 10:00 Method Of Arrival: Wheelchair sv 10:00 Acuity: TRUE 3 sv Historical: - Allergies: : No Known Allergies; sv - Home Meds: 10:26 aspirin 81 mg Oral TbEC 1 tab once daily [Active]; carvedilol 12.5 mg oral tab 1 tab 2 iw times per day [Active]; allopurinol 300 mg Oral tab 1 tab once daily [Active]; atorvastatin 40 mg oral tab 1 tab once daily [Active]; fenofibrate 54 mg oral tab 1 tab once daily [Active]; glipizide 10 mg Oral tab 1 tab once daily [Active]; metformin 500 mg Oral tr24 1 tab once daily [Active]; - PMHx: 10:09 Diabetes - NIDDM; Hyperlipidemia; Hypertension; CHF; minor kidney problems; sv - PSHx: 10: None; sv - Immunization history:: Adult Immunizations up to date. - Social history:: Smoking status: . Screenin:00 Abuse screen: Denies threats or abuse. Nutritional screening: No deficits noted. em Tuberculosis screening: No symptoms or risk factors identified. Fall Risk None identified. Assessment: 10:00 General: Appears in no apparent distress. comfortable, Behavior is cooperative, em anxious. Pain: Complains of pain in chest Pain currently is 5 out of 10 on a pain scale. Neuro: Level of Consciousness is awake, alert, obeys commands, Oriented to person, place, time, situation, Appropriate for age. Cardiovascular: Rhythm is sinus rhythm. Respiratory: Airway is patent Respiratory effort is even, unlabored, Respiratory pattern is regular, symmetrical, Breath sounds are clear. GI: Abdomen is round non-distended, Patient currently denies nausea. Derm: Skin is intact, is healthy with good turgor, Skin is pink, warm \\T\\ dry. Musculoskeletal: Capillary refill < 3 seconds, Range of motion: intact in all extremities. 11:27 Reassessment: Patient appears in no apparent distress at this time. pt states he is iw feeling anxious again bc his BP is going up, pt also needs to urinate, pt given urinal, advised that we will recheck his pressure when he is lying down and not moving around so much. 12:00 Reassessment: Patient appears in no apparent distress at this time. Patient and/or em family updated on plan of care and expected duration. Pain level reassessed. Patient is alert, oriented x 3, equal unlabored respirations, skin warm/dry/pink. Patient states feeling better. Vital Signs: 10:00 Pulse 96; Resp 22; Pulse Ox 97% ; Weight 140.61 kg; Height 5 ft. 9 in. (175.26 cm); sv 10:21 BP 170 / 98; Pulse 86; Resp 20 S; Pulse Ox 100% on R/A; iw 11:07 BP 173 / 101; Pulse 87; Resp 17; Pulse Ox 98% on R/A; em 12:00 BP 158 / 94; Pulse 87; Resp 18; Pulse Ox 97% on R/A; em 10:00 Body Mass Index 45.78 (140.61 kg, 175.26 cm) sv ED Course: 09:59 Patient arrived in ED. mr 09:59 Amairani Steward MD is Private Physician. mr 10:00 Arm band placed on Patient placed in an exam room, on a stretcher, on pulse oximetry. sv 10:08 Triage completed. sv 10:14 Juan C Meng, OLAYINKA is Primary Nurse. em 10:19 Brendon Hickman MD is Attending Physician. kdr 10:22 Initial lab(s) drawn, by me, sent to lab. Inserted saline lock: 20 gauge in right iw antecubital area, using aseptic technique. Blood collected. 10:50 XRAY Chest (1 view) In Process Unspecified. EDMS 12:02 Patient has correct armband on for positive identification. Bed in low position. Call mh5 light in reach. Side rails up X2. Warm blanket given. Pillow given. monitoring analyst on. Pulse ox on. NIBP on. 12:05 Amairani Steward MD is Referral Physician. kdr 12:32 No provider procedures requiring assistance completed. IV discontinued, intact, em bleeding controlled, No redness/swelling at site. Pressure dressing applied. Administered Medications: 12:05 Drug: Valium 5 mg Route: PO; em 12:20 Follow up: Response: No adverse reaction em Outcome: 12:05 Discharge ordered by MD. kdr 12:32 Discharged to home ambulatory. em 12:32 Condition: good 12:32 Discharge instructions given to patient, Instructed on discharge instructions, follow up and referral plans. no drinking with medication, no driving heavy equipment, medication usage, Demonstrated understanding of instructions, follow-up care, medications, Prescriptions given X 1. 12:45 Patient left the ED. em Signatures: Dispatcher [employer] [facility] Annel Mccain RN RN sv Rittger, Kevin, MD MD [facility] Lucina Saldivar mr MengJuan C RN RN em Williams, Irene, RN RN Shawn [place] [id number]
[2020-08-02 18:15] VITALS: BP 158/94; O2SAT 97
== END 2020-08-02 12:45 | disposition home or self-care (01) ==
LOC: ER 09:58
DX: F41.9 Anxiety disorder, unspecified (principal); I10 Essential (primary) hypertension; I50.9 Heart failure, unspecified; E11.9 Type 2 diabetes mellitus without complications; E78.5 Hyperlipidemia, unspecified; Z79.82 Long term (current) use of aspirin
CPT/HCPCS: 93005; 85025; 80048; 36415; 83735; 85610; 80076; 84484; 83880; 71045; 99284; J7030

== ENCOUNTER 2021-12-08 11:29 | Inpatient (IN) | payer BC ==
--- OUTSIDE RECORDS SUMMARY | 2021-12-08 11:34 | XMS REPORT | Continuity of Care Document ---
:1970 Author Organization [facility] t Address [address] [place] [address] Care Team Providers Name Role Phone Shayna ROMAN T Attending Clinician Cherelle CORRAL Attending Clinician Unavailable SHAYNA T Attending Clinician Unavailable 1, Sleep Lab Bed Attending Clinician Unavailable Only, Test Attending Clinician Unavailable Christiane ROMAN Attending Clinician Doctor Unassigned, Name Attending Clinician Unavailable Tech, Sleep Lab Attending Clinician Unavailable Adenike ROMAN Attending Clinician ADENIKE Attending Clinician Unavailable Marvin VICENTE F Attending Clinician Whitney BHAGAT, A Attending Clinician Unavailable MCKAYLA Attending Clinician Unavailable BLOCK Admitting Clinician Unavailable Payers Payer Name Policy Type Policy Number Effective Date Expiration Date S ource Problems Condition Condition Condition Status Onset Resolution Last Treating Co mments Source Name Details Category Date Date Treatment Clinician Date NSVT NSVT Disease Active [facility] (nonsustai (nonsustai 07-29 it y of olga olga 00:00: [place] ventricula ventricula 00 Me dical r r Branch tachycardi tachycardi a) a) Hypertensi Hypertensi Disease Active U nivers ve ve 07-28 [place] Other Other Disease Active [facility] hyperlipid hyperlipid 07-28 it y of emia emia 00:00: [place] 00 Medical Branch Type 2 Type 2 Disease Active 2019- [facility] diabetes diabetes 07-28 ity of mellitus mellitus 00:00: [place] without without 00 Medical complicati complicati Br anch on, on, without without long-term long-term current current use of use of insulin insulin Acute Acute Disease Active [facility] diastolic diastolic 9-13 ity of congestive congestive 00:00: [facility] heart heart 00 Medical failure failure Branch Hypoxia Hypoxia Disease Active Univers 9-12 ity of 00:00: [place] 00 Medical Branch Morbid Morbid Disease Active [facility] obesity obesity 9-12 [place] of with body with body [place] mass index mass index 00 Me dical of of Branch 40.0-49.9 40.0-49.9 Allergies, Adverse Reactions, Alerts Allergy Allergy Status Severity Reaction(s) Onset Inactive Treating Comm ents Source Name Type Date Date Clinician NO KNOWN Drug Active [facility] ALLERGIE Class ity of S [facility] Social History Social Habit Start Date Stop Date Quantity Comments Source Sex Assigned At [facility] y of [facility] Exposure to Not sure [facility] SARS-CoV-2 [facility] (event) [place] Tobacco use and 2020-10-02 2020-10-02 Never used Universit y of exposure 00:00:00 00:00:00 [facility] Alcohol intake 2020-10-02 2020-10-02 Ex-drinker [facility] 00:00:00 00:00:00 (finding) [facility] Smoking Status Start Date Stop Date Source Never smoker [facility] Medications Ordered Filled Start Stop Current Ordering Indication Dosage Frequency Signature Comments Components Source Medication Medication Date Date Medication? Clinician (SIG) Name Name AMLODIPINE 2019-11 Yes [id number] TAKE 1 U nivers 10 mg 0-07 TABLET BY ity of tablet 00:00: [facility] EVERY DAY Medical Branch AMLODIPINE 2019-11 Yes [id number] TAKE 1 U nivers 10 mg 0-07 TABLET BY ity of tablet 00:00: [facility] EVERY DAY Medical Branch AMLODIPINE 2019-11 Yes [id number] TAKE 1 U nivers 10 mg 0-07 TABLET BY ity of tablet 00:00: [facility] EVERY DAY Medical Branch AMLODIPINE 2019-11 Yes [id number] TAKE 1 U nivers 10 mg 0-07 TABLET BY ity of tablet 00:00: [facility] EVERY DAY Medical Branch AMLODIPINE 2019-11 Yes [id number] TAKE 1 U nivers 10 mg 0-07 TABLET BY ity of tablet 00:00: MOUTH [place] 00 EVERY DAY Medical Branch AMLODIPINE 2020-1 Yes [id number] TAKE 1 U nivers 10 mg 0-07 TABLET BY ity of tablet 00:00: MOUTH [place] 00 EVERY DAY Medical Branch AMLODIPINE 2020-1 Yes [id number] TAKE 1 U nivers 10 mg 0-07 TABLET BY ity of tablet 00:00: MOUTH [place] 00 EVERY DAY Medical Branch AMLODIPINE 2020-1 Yes [id number] TAKE 1 U nivers 10 mg 0-07 TABLET BY ity of tablet 00:00: MOUTH [place] 00 EVERY DAY Medical Branch AMLODIPINE 2020-1 Yes [id number] TAKE 1 U nivers 10 mg 0-07 TABLET BY ity of tablet 00:00: MOUTH [place] 00 EVERY DAY Medical Branch AMLODIPINE 2020- Yes [id number] TAKE 1 U nivers 10 mg 0-07 TABLET BY ity of tablet 00:00: MOUTH [place] 00 EVERY DAY Medical Branch AMLODIPINE 2019- Yes [id number] TAKE 1 U nivers 10 mg 0-07 TABLET BY ity of tablet 00:00: MOUTH [place] 00 EVERY DAY Medical Branch AMLODIPINE 2020-1 Yes [id number] TAKE 1 U nivers 10 mg 0-07 TABLET BY ity of tablet 00:00: MOUTH [place] 00 EVERY DAY Medical Branch AMLODIPINE 2020-1 Yes [id number] TAKE 1 U nivers 10 mg 0-07 TABLET BY ity of tablet 00:00: MOUTH [place] 00 EVERY DAY Medical Branch AMLODIPINE 2020-1 Yes [id number] TAKE 1 U nivers 10 mg 0-07 TABLET BY ity of tablet 00:00: MOUTH [place] 00 EVERY DAY Medical Branch AMLODIPINE 2020-1 Yes [id number] TAKE 1 U nivers 10 mg 0-07 TABLET BY ity of tablet 00:00: [facility] 00 EVERY DAY Medical Branch metformin 2020-1 Yes 500mg Take 500 Uni vers ER 500 mg 0-06 mg by ity of 24 hr 19:02: mouth [place] tablet 10 daily with Medical breakfast. Branch fenofibrate 2019- Yes 54mg Take 54 mg Univers 54 mg 0-06 by mouth ity of tablet 19:02: daily. [place] 10 Medical Branch atorvastati 2019- Yes 40mg Take 40 mg Univers n 40 mg 0-06 by mouth ity of tablet 19:02: at [place] [address] bedtime. Medical Branch allopurinoL 2019- Yes 300mg Take 300 U nivers 100 mg 0-06 mg by ity of tablet 19:02: mouth [place] 10 daily. Medical Branch glipiZIDE 2019- Yes 10mg Take 10 mg Un sparkle 10 mg 0-06 by mouth ity of tablet 19:02: daily. [place] [address] Medical Branch metformin 2019-11 Yes 500mg Take 500 Uni vers ER 500 mg 0-06 mg by ity of 24 hr 19:02: mouth [place] tablet 10 daily with Medical breakfast. Branch fenofibrate 2019-11 Yes 54mg Take 54 mg Univers 54 mg 0-06 by mouth ity of tablet 19:02: daily. [place] [address] Medical Branch atorvastati 2019-11 Yes 40mg Take 40 mg Univers n 40 mg 0-06 by mouth ity of tablet 19:02: at [place] 10 bedtime. Medical Branch allopurinoL 2019-11 Yes 300mg Take 300 U nivers 100 mg 0-06 mg by ity of tablet 19:02: mouth [place] 10 daily. Medical Branch glipiZIDE 2019-11 Yes 10mg Take 10 mg Un sparkle 10 mg 0-06 by mouth ity of tablet 19:02: daily. [place] [address] Medical [place] metformin 2019-11 Yes 500mg Take 500 Uni vers ER 500 mg 0-06 mg by ity of 24 hr 19:02: mouth [place] tablet 10 daily with Medical breakfast. Branch fenofibrate 2019-11 Yes 54mg Take 54 mg Univers 54 mg 0-06 by mouth ity of tablet 19:02: daily. [address] Branch atorvastati 2019-11 Yes 40mg Take 40 mg Univers n 40 mg 0-06 by mouth ity of tablet 19:02: at [place] 10 bedtime. Medical Branch allopurinoL 2019- Yes 300mg Take 300 U nivers 100 mg 0-06 mg by ity of tablet 19:02: mouth [place] 10 daily. Medical Branch glipiZIDE 2019-11 Yes 10mg Take 10 mg Un [place] 10 mg 0-06 by mouth ity of tablet 19:02: daily. [address] metformin 2019-11 Yes 500mg Take 500 Uni vers ER 500 mg 0-06 mg by ity of 24 hr 19:02: mouth [place] tablet 10 daily with Medical breakfast. Branch fenofibrate 2019-11 Yes 54mg Take 54 mg Univers 54 mg 0-06 by mouth ity of tablet 19:02: daily. [place] [address] Medical Branch atorvastati 2019- Yes 40mg Take 40 mg Univers n 40 mg 0-06 by mouth ity of tablet 19:02: at [place] 10 bedtime. Medical Branch allopurinoL 2019- Yes 300mg Take 300 U nivers 100 mg 0-06 mg by ity of tablet 19:02: mouth [place] 10 daily. Medical Branch glipiZIDE 2019-11 Yes 10mg Take 10 mg Un spark[place] 10 mg 0-06 by mouth ity of tablet 19:02: daily. [place] [address] Medical Branch metformin 2019-11 Yes 500mg Take 500 Uni vers ER 500 mg 0-06 mg by ity of 24 hr 19:02: mouth [place] tablet 10 daily with Medical breakfast. Branch fenofibrate 2019-11 Yes 54mg Take 54 mg Univers 54 mg 0-06 by mouth ity of tablet 19:02: daily. [place] [address] Medical Branch atorvastati 2019-11 Yes 40mg Take 40 mg Univers n 40 mg 0-06 by mouth ity of tablet 19:02: at [place] 10 bedtime. Medical Branch allopurinoL 2019-11 Yes 300mg Take 300 U nivers 100 mg 0-06 mg by ity of tablet 19:02: mouth [place] 10 daily. Medical Branch glipiZIDE 2019-11 Yes 10mg Take 10 mg Un sparkle 10 mg 0-06 by mouth ity of tablet 19:02: daily. [address] Branch metformin 2019-11 Yes 500mg Take 500 Uni vers ER 500 mg 0-06 mg by ity of 24 hr 19:02: mouth [place] tablet 10 daily with Medical breakfast. Branch fenofibrate 2019-11 Yes 54mg Take 54 mg Univers 54 mg 0-06 by mouth ity of tablet 19:02: daily. [place] [address] Medical Branch atorvastati 2019-11 Yes 40mg Take 40 mg Univers n 40 mg 0-06 by mouth ity of tablet 19:02: at [place] 10 bedtime. Medical Branch allopurinoL 2019-11 Yes 300mg Take 300 U nivers 100 mg 0-06 mg by ity of tablet 19:02: mouth [place] 10 daily. Medical Branch glipiZIDE 2019-11 Yes 10mg Take 10 mg Un sparkle 10 mg 0-06 by mouth ity of tablet 19:02: daily. [address] metformin 2019-11 Yes 500mg Take 500 Uni vers ER 500 mg 0-06 mg by ity of 24 hr 19:02: mouth [place] tablet 10 daily with Medical breakfast. Branch fenofibrate 2019-11 Yes 54mg Take 54 mg Univers 54 mg 0-06 by mouth ity of tablet 19:02: daily. [place] [address] Medical Branch atorvastati 2019-11 Yes 40mg Take 40 mg Univers n 40 mg 0-06 by mouth ity of tablet 19:02: at [place] 10 bedtime. Medical Branch allopurinoL 2019- Yes 300mg Take 300 U nivers 100 mg 0-06 mg by ity of tablet 19:02: mouth [place] 10 daily. Medical Branch glipiZIDE 2019-11 Yes 10mg Take 10 mg Un spark[place] 10 mg 0-06 by mouth ity of tablet 19:02: daily. [place] [address] Medical Branch metformin 2019-11 Yes 500mg Take 500 Uni vers ER 500 mg 0-06 mg by ity of 24 hr 19:02: mouth [place] tablet 10 daily with Medical breakfast. Branch fenofibrate 2019-11 Yes 54mg Take 54 mg Univers 54 mg 0-06 by mouth ity of tablet 19:02: daily. [place] [address] Medical Branch atorvastati 2019-11 Yes 40mg Take 40 mg Univers n 40 mg 0-06 by mouth ity of tablet 19:02: at [place] 10 bedtime. Medical Branch allopurinoL 2019-11 Yes 300mg Take 300 U nivers 100 mg 0-06 mg by ity of tablet 19:02: mouth [place] 10 daily. Medical Branch glipiZIDE 2019-11 Yes 10mg Take 10 mg Un spark[place] 10 mg 0-06 by mouth ity of tablet 19:02: daily. [place] [address] Medical Branch metformin 2019-11 Yes 500mg Take 500 Uni vers ER 500 mg 0-06 mg by ity of 24 hr 19:02: mouth [place] tablet 10 daily with Medical breakfast. Branch fenofibrate 2019-11 Yes 54mg Take 54 mg Univers 54 mg 0-06 by mouth ity of tablet 19:02: daily. [place] [address] Medical Branch atorvastati 2019-11 Yes 40mg Take 40 mg Univers n 40 mg 0-06 by mouth ity of tablet 19:02: at [place] 10 bedtime. Medical Branch allopurinoL 2019- Yes 300mg Take 300 U nivers 100 mg 0-06 mg by ity of tablet 19:02: mouth [place] 10 daily. Medical Branch glipiZIDE 2019- Yes 10mg Take 10 mg Un [place] 10 mg 0-06 by mouth ity of tablet 19:02: daily. [address] Branch metformin 2019- Yes 500mg Take 500 Uni vers ER 500 mg 0-06 mg by ity of 24 hr 19:02: mouth [place] tablet 10 daily with Medical breakfast. Branch fenofibrate 2019-11 Yes 54mg Take 54 mg Univers 54 mg 0-06 by mouth ity of tablet 19:02: daily. [place] [address] Medical Branch atorvastati 2019-11 Yes 40mg Take 40 mg Univers n 40 mg 0-06 by mouth ity of tablet 19:02: at [place] 10 bedtime. Medical Branch allopurinoL 2019- Yes 300mg Take 300 U nivers 100 mg 0-06 mg by ity of tablet 19:02: mouth [place] 10 daily. [facility] Branch glipiZIDE 2019-11 Yes 10mg Take 10 mg Un sparkle 10 mg 0-06 by mouth ity of tablet 19:02: daily. [address] metformin 2019-11 Yes 500mg Take 500 Uni vers ER 500 mg 0-06 mg by ity of 24 hr 19:02: mouth [place] tablet 10 daily with Medical breakfast. Branch fenofibrate 2019-11 Yes 54mg Take 54 mg Univers 54 mg 0-06 by mouth ity of tablet 19:02: daily. [address] Branch atorvastati 2019-11 Yes 40mg Take 40 mg Univers n 40 mg 0-06 by mouth ity of tablet 19:02: at [place] 10 bedtime. Medical Branch allopurinoL 2019- Yes 300mg Take 300 U nivers 100 mg 0-06 mg by ity of tablet 19:02: mouth [place] 10 daily. Medical Branch glipiZIDE 2019-11 Yes 10mg Take 10 mg Un spark[place] 10 mg 0-06 by mouth ity of tablet 19:02: daily. [address] metformin 2019-11 Yes 500mg Take 500 Uni vers ER 500 mg 0-06 mg by ity of 24 hr 19:02: mouth [place] tablet 10 daily with Medical breakfast. Branch fenofibrate 2019-11 Yes 54mg Take 54 mg Univers 54 mg 0-06 by mouth ity of tablet 19:02: daily. [address] atorvastati 2019-11 Yes 40mg Take 40 mg Univers n 40 mg 0-06 by mouth ity of tablet 19:02: at [place] 10 bedtime. Medical Branch allopurinoL 2019-1 Yes 300mg Take 300 U nivers 100 mg 0-06 mg by ity of tablet 19:02: mouth [place] 10 daily. [facility] Branch glipiZIDE 2019-11 Yes 10mg Take 10 mg Un sparkle 10 mg 0-06 by mouth ity of tablet 19:02: daily. [address] metformin 2019- Yes 500mg Take 500 Uni vers ER 500 mg 0-06 mg by ity of 24 hr 19:02: mouth [place] tablet 10 daily with Medical breakfast. Branch fenofibrate 2019-11 Yes 54mg Take 54 mg Univers 54 mg 0-06 by mouth ity of tablet 19:02: daily. [address] Branch atorvastati 2019-11 Yes 40mg Take 40 mg Univers n 40 mg 0-06 by mouth ity of tablet 19:02: at [place] 10 bedtime. Medical Branch allopurinoL 2019-11 Yes 300mg Take 300 U nivers 100 mg 0-06 mg by ity of tablet 19:02: mouth [place] 10 daily. Medical Branch glipiZIDE 2019-11 Yes 10mg Take 10 mg Un [place] 10 mg 0-06 by mouth ity of tablet 19:02: daily. [address] metformin 2019-11 Yes 500mg Take 500 Uni vers ER 500 mg 0-06 mg by ity of 24 hr 19:02: mouth [place] tablet 10 daily with Medical breakfast. Branch fenofibrate 2019-11 Yes 54mg Take 54 mg Univers 54 mg 0-06 by mouth ity of tablet 19:02: daily. [address] atorvastati 2019-11 Yes 40mg Take 40 mg Univers n 40 mg 0-06 by mouth ity of tablet 19:02: at [place] 10 bedtime. Medical Branch allopurinoL 2019- Yes 300mg Take 300 U nivers 100 mg 0-06 mg by ity of tablet 19:02: mouth [place] 10 daily. [facility] Branch glipiZIDE 2019-11 Yes 10mg Take 10 mg Un sparkle 10 mg 0-06 by mouth ity of tablet 19:02: daily. [address] metformin 2019-11 Yes 500mg Take 500 Uni vers ER 500 mg 0-06 mg by ity of 24 hr 19:02: mouth [place] tablet 10 daily with Medical breakfast. Branch fenofibrate 2019-11 Yes 54mg Take 54 mg Univers 54 mg 0-06 by mouth ity of tablet 19:02: daily. [place] 10 Medical Branch atorvastati 2019-11 Yes 40mg Take 40 mg Univers n 40 mg 0-06 by mouth ity of tablet 19:02: at [place] 10 bedtime. Medical Branch allopurinoL 2019-11 Yes 300mg Take 300 U nivers 100 mg 0-06 mg by ity of tablet 19:02: mouth [place] 10 daily. Medical Branch glipiZIDE 2019-11 Yes 10mg Take 10 mg Un spark[place] 10 mg 0-06 by mouth ity of tablet 19:02: daily. [place] [address] Medical Branch metformin 2019-11 Yes 500mg Take 500 Uni vers ER 500 mg 0-06 mg by ity of 24 hr 19:02: mouth [place] tablet 10 daily with Medical breakfast. Branch fenofibrate 2019-11 Yes 54mg Take 54 mg Univers 54 mg 0-06 by mouth ity of tablet 19:02: daily. [address] Branch atorvastati 2019-11 Yes 40mg Take 40 mg Univers n 40 mg 0-06 by mouth ity of tablet 19:02: at [place] 10 bedtime. Medical Branch allopurinoL 2019-11 Yes 300mg Take 300 U nivers 100 mg 0-06 mg by ity of tablet 19:02: mouth [place] 10 daily. Medical Branch glipiZIDE 2019-11 Yes 10mg Take 10 mg Un sparkle 10 mg 0-06 by mouth ity of tablet 19:02: daily. [address] metformin 2019-11 Yes 500mg Take 500 Uni vers ER 500 mg 0-06 mg by ity of 24 hr 19:02: mouth [place] tablet 10 daily with Medical breakfast. Branch fenofibrate 2019-11 Yes 54mg Take 54 mg Univers 54 mg 0-06 by mouth ity of tablet 19:02: daily. [place] [address] Medical Branch atorvastati 2019-11 Yes 40mg Take 40 mg Univers n 40 mg 0-06 by mouth ity of tablet 19:02: at [place] 10 bedtime. Medical Branch allopurinoL 2019-11 Yes 300mg Take 300 U nivers 100 mg 0-06 mg by ity of tablet 19:02: mouth [place] 10 daily. Medical Branch glipiZIDE 2019-11 Yes 10mg Take 10 mg Un [place] 10 mg 0-06 by mouth ity of tablet 19:02: daily. [address] metformin 2019-11 Yes 500mg Take 500 Uni vers ER 500 mg 0-06 mg by ity of 24 hr 19:02: mouth [place] tablet 10 daily with Medical breakfast. Branch fenofibrate 2019-11 Yes 54mg Take 54 mg Univers 54 mg 0-06 by mouth ity of tablet 19:02: daily. [place] [address] Medical Branch atorvastati 2019-11 Yes 40mg Take 40 mg Univers n 40 mg 0-06 by mouth ity of tablet 19:02: at [place] 10 bedtime. Medical Branch allopurinoL 2019-11 Yes 300mg Take 300 U nivers 100 mg 0-06 mg by ity of tablet 19:02: mouth [place] 10 daily. Medical Branch glipiZIDE 2019-11 Yes 10mg Take 10 mg Un spark[place] 10 mg 0-06 by mouth ity of tablet 19:02: daily. [place] [address] Medical Branch carvediloL 2019-11 Yes [id number] 25mg Take 1 U nivers 25 mg 0-06 tablet by ity of tablet 00:00: mouth 2 00 (two) Medical times Branch daily with meals. amLODIPine 2019-11 Yes [id number] 10mg Take 1 U nivers 10 mg 0-06 tablet by ity of tablet 00:00: mouth [place] 00 daily. Medical Branch lisinopriL 2019-11 Yes 20mg Take 1 Unive rs (PRINIVIL) 0-06 tablet by ity of 20 mg 00:00: mouth [place] tablet 00 daily. Medical Branch carvediloL 2019-11 Yes [id number] 25mg Take 1 U nivers 25 mg 0-06 tablet by ity of tablet 00:00: mouth 2 (two) Medical times Branch daily with meals. lisinopriL 2019-11 Yes 20mg Take 1 Unive rs (PRINIVIL) 0-06 tablet by ity of 20 mg 00:00: mouth [place] tablet 00 daily. Medical Branch carvediloL 2019-11 Yes [id number] 25mg Take 1 U nivers 25 mg 0-06 tablet by ity of tablet 00:00: mouth 2 [place] 00 (two) Medical times Branch daily with meals. lisinopriL 2019-11 Yes 20mg Take 1 Unive rs (PRINIVIL) 0-06 tablet by ity of 20 mg 00:00: mouth [place] tablet 00 daily. Medical Branch carvediloL 2019-11 Yes [id number] 25mg Take 1 U nivers 25 mg 0-06 tablet by ity of tablet 00:00: mouth 2 [place] 00 (two) Medical times Branch daily with meals. lisinopriL 2019-11 Yes 20mg Take 1 Unive rs (PRINIVIL) 0-06 tablet by ity of 20 mg 00:00: mouth [place] tablet 00 daily. Medical Branch carvediloL 2019-11 Yes [id number] 25mg Take 1 U nivers 25 mg 0-06 tablet by ity of tablet 00:00: mouth 2 [place] 00 (two) Medical times Branch daily with meals. lisinopriL 2019-11 Yes 20mg Take 1 Unive rs (PRINIVIL) 0-06 tablet by ity of 20 mg 00:00: mouth [place] tablet 00 daily. Medical Branch carvediloL 2019-11 Yes [id number] 25mg Take 1 U nivers 25 mg 0-06 tablet by ity of tablet 00:00: mouth 2 [place] 00 (two) Medical times Branch daily with meals. lisinopriL 2019-11 Yes 20mg Take 1 Unive rs (PRINIVIL) 0-06 tablet by ity of 20 mg 00:00: mouth [place] tablet 00 daily. Medical Branch carvediloL 2019-11 Yes [id number] 25mg Take 1 U nivers 25 mg 0-06 tablet by ity of tablet 00:00: mouth 2 [place] 00 (two) Medical times Branch daily with meals. lisinopriL 2019-11 Yes 20mg Take 1 Unive rs (PRINIVIL) 0-06 tablet by ity of 20 mg 00:00: mouth [place] tablet 00 daily. Medical Branch carvediloL 2019-11 Yes [id number] 25mg Take 1 U nivers 25 mg 0-06 tablet by ity of tablet 00:00: mouth 2 [place] 00 (two) Medical times Branch daily with meals. lisinopriL 2019-11 Yes 20mg Take 1 Unive rs (PRINIVIL) 0-06 tablet by ity of 20 mg 00:00: mouth [place] tablet 00 daily. Medical Branch carvediloL 2019-11 Yes [id number] 25mg Take 1 U nivers 25 mg 0-06 tablet by ity of tablet 00:00: mouth 2 [place] 00 (two) Medical times Branch daily with meals. lisinopriL 2019-11 Yes 20mg Take 1 Unive rs (PRINIVIL) 0-06 tablet by ity of 20 mg 00:00: mouth [place] tablet 00 daily. Medical Branch carvediloL 2019- Yes [id number] 25mg Take 1 U nivers 25 mg 0-06 tablet by ity of tablet 00:00: mouth 2 [place] (two) Medical times Branch daily with meals. lisinopriL 2019-11 Yes 20mg Take 1 Unive rs (PRINIVIL) 0-06 tablet by ity of 20 mg 00:00: mouth [place] tablet 00 daily. Medical Branch carvediloL 2019-11 Yes [id number] 25mg Take 1 U nivers 25 mg 0-06 tablet by ity of tablet 00:00: mouth 2 [place] (two) Medical times Branch daily with meals. lisinopriL 2019-11 Yes 20mg Take 1 Unive rs (PRINIVIL) 0-06 tablet by ity of 20 mg 00:00: mouth [place] tablet 00 daily. Medical Branch carvediloL 2019-11 Yes [id number] 25mg Take 1 U nivers 25 mg 0-06 tablet by ity of tablet 00:00: mouth 2 [place] 00 (two) Medical times Branch daily with meals. lisinopriL 2019-11 Yes 20mg Take 1 Unive rs (PRINIVIL) 0-06 tablet by ity of 20 mg 00:00: mouth [place] tablet 00 daily. Medical Branch carvediloL 2019-11 Yes [id number] 25mg Take 1 U nivers 25 mg 0-06 tablet by ity of tablet 00:00: mouth 2 [place] (two) Medical times Branch daily with meals. lisinopriL 2019-11 Yes 20mg Take 1 Unive rs (PRINIVIL) 0-06 tablet by ity of 20 mg 00:00: mouth [place] tablet 00 daily. Medical Branch carvediloL 2019-11 Yes [id number] 25mg Take 1 U nivers 25 mg 0-06 tablet by ity of tablet 00:00: mouth 2 [place] 00 (two) Medical times Branch daily with meals. lisinopriL 2019-11 Yes 20mg Take 1 Unive rs (PRINIVIL) 0-06 tablet by ity of 20 mg 00:00: mouth [place] tablet 00 daily. Medical Branch carvediloL 2019-11 Yes [id number] 25mg Take 1 U nivers 25 mg 0-06 tablet by ity of tablet 00:00: mouth 2 [place] 00 (two) Medical times Branch daily with meals. lisinopriL 2019-11 Yes 20mg Take 1 Unive rs (PRINIVIL) 0-06 tablet by ity of 20 mg 00:00: mouth [place] tablet 00 daily. Medical Branch carvediloL 2019-11 Yes [id number] 25mg Take 1 U nivers 25 mg 0-06 tablet by ity of tablet 00:00: mouth 2 [place] 00 (two) Medical times [place] daily with meals. lisinopriL 2019-11 Yes 20mg Take 1 Unive rs (PRINIVIL) 0-06 tablet by ity of 20 mg 00:00: mouth [place] tablet 00 daily. Medical Branch carvediloL 2019-11 Yes [id number] 25mg Take 1 U nivers 25 mg 0-06 tablet by ity of tablet 00:00: mouth 2 [place] 00 (two) Medical times [place] daily with meals. lisinopriL 2019-11 Yes 20mg Take 1 Unive rs (PRINIVIL) 0-06 tablet by ity of 20 mg 00:00: mouth [place] tablet 00 daily. Medical Branch carvediloL 2019-11 Yes [id number] 25mg Take 1 U nivers 25 mg 0-06 tablet by ity of tablet 00:00: mouth 2 [place] 00 (two) Medical times [place] daily with meals. amLODIPine 2019-11 Yes [id number] 10mg Take 1 U nivers 10 mg 0-06 tablet by ity of tablet 00:00: mouth [place] 00 daily. Medical Branch lisinopriL 2019-11 Yes 20mg Take 1 Unive rs (PRINIVIL) 0-06 tablet by ity of 20 mg 00:00: mouth [place] tablet 00 daily. Medical Branch amLODIPine 2019-11 2020- No [id number] 10mg Take 1 Univers 10 mg 0-06 10-07 tablet by ity of tablet 00:00: 00:00 mouth [place] 00 :00 daily. Medical Branch amLODIPine 2019-11 2020- No [id number] 10mg Take 1 Univers 10 mg 0-06 10-07 tablet by ity of tablet 00:00: 00:00 mouth [place] 00 :00 daily. Medical Branch cloNIDine 2020- No .1mg 0.1 mg, Univ ers (CATAPRES) 08-14 0930 Oral, ity of tablet 0.1 20:30: 20:06 ONCE, 1 [place] as mg 00 :00 dose, Wed Medical 08/14/20 at Branch 1530, STAT hydralAZINE 2020- No 10mg 10 mg, Uni vers (APRESOLINE 08-14 Slow IV ity of ) injection 19:15: 19:05 [place] 10 mg 00 :00 ONCE, 1 Medical dose, Wed Branch 08/14/20 at 1415, STAT
In dication: Hypertensi ve Emergency furosemide 2020- No 40mg 40 mg, IV U nivers (LASIX) 08-14 Push, ity of injection 19:15: 19:06 ONCE, 1 [place] 40 mg 00 :00 dose, Wed Medical 08/14/20 at Branch 1415, DERICK furosemide 2020- No [id number] 40mg Take 1 Univers (LASIX) 40 9-30 10-15 tablet by ity of mg tablet 00:00: 04:59 mouth 2 [place] 00 :00 (two) Medical times Branch daily for 14 days. furosemide 2019- 2020- No [id number] 40mg Take 1 Univers (LASIX) 40 9-30 10-15 tablet by ity of mg tablet 00:00: 04:59 mouth 2 [place] 00 :00 (two) Medical times Branch daily for 14 days. furosemide 2019- 2020- No [id number] 40mg Take 1 Univers (LASIX) 40 9-30 10-15 tablet by ity of mg tablet 00:00: 04:59 mouth 2 [place] :[place] (two) Medical times Branch daily for 14 days. furosemide 2019- 2020- No [id number] 40mg Take 1 Univers (LASIX) 40 9-30 10-15 tablet by ity of mg tablet 00:00: 04:59 mouth 2 [place] 00 :[place] (two) Medical times Branch daily for 14 days. furosemide 2019-0 2020- No [id number] 40mg Take 1 Univers (LASIX) 40 9-30 10-15 tablet by ity of mg tablet 00:00[place] 04:[place] Medical times Branch daily for 14 days. carvediloL 2019- 2020- No [id number] 25mg Take 1 Univers 25 mg 08-14-30 tablet by ity of tablet 00:00: 00:00 mouth 2 [place] 00 :00 (two) Medical times Branch daily with meals for 30 days. carvediloL 2019-0 2020- No [id number] 25mg Take 2 Univers 12.5 mg 9-30 09-30 tablets by ity o f tablet 00:00: 00:00 mouth 2 [place] 00 :00 (two) Medical times Branch daily with meals. aspirin 81 2020-0 Yes [id number] 81mg Take 1 U nivers mg chewable 9-15 tablet by ity of tablet 00:00: mouth [place] 00 daily. Medical Branch aspirin 81 2020-0 Yes [id number] 81mg Take 1 U nivers mg chewable 9-15 tablet by ity of tablet 00:00: mouth [place] 00 daily. Medical Branch aspirin 81 2020-0 Yes [id number] 81mg Take 1 U nivers mg chewable 9-15 tablet by ity of tablet 00:00: mouth [place] 00 daily. Medical Branch aspirin 81 2020-0 Yes [id number] 81mg Take 1 U nivers mg chewable 9-15 tablet by ity of tablet 00:00: mouth [place] 00 daily. Medical Branch aspirin 81 2020-0 Yes [id number] 81mg Take 1 U nivers mg chewable 9-15 tablet by ity of tablet 00:00: mouth [place] 00 daily. Medical Branch aspirin 81 2020-0 Yes [id number] 81mg Take 1 U nivers mg chewable 9-15 tablet by ity of tablet 00:00: mouth [place] 00 daily. Medical Branch aspirin 81 2020-0 Yes [id number] 81mg Take 1 U nivers mg chewable 9-15 tablet by ity of tablet 00:00: mouth [place] 00 daily. Medical Branch aspirin 81 2020-0 Yes [id number] 81mg Take 1 U nivers mg chewable 9-15 tablet by ity of tablet 00:00: mouth [place] 00 daily. Medical Branch aspirin 81 2020-0 Yes [id number] 81mg Take 1 U nivers mg chewable 9-15 tablet by ity of tablet 00:00: mouth [place] 00 daily. Medical Branch aspirin 81 2020-0 Yes [id number] 81mg Take 1 U nivers mg chewable 9-15 tablet by ity of tablet 00:00: mouth [place] 00 daily. Medical Branch aspirin 81 2020-0 Yes [id number] 81mg Take 1 U nivers mg chewable 9-15 tablet by ity of tablet 00:00: mouth [place] 00 daily. Medical Branch aspirin 81 2020-0 Yes [id number] 81mg Take 1 U nivers mg chewable 9-15 tablet by ity of tablet 00:00: mouth [place] 00 daily. Medical Branch aspirin 81 2020-0 Yes [id number] 81mg Take 1 U nivers mg chewable 9-15 tablet by ity of tablet 00:00: mouth [place] 00 daily. Medical Branch aspirin 81 2020-0 Yes [id number] 81mg Take 1 U nivers mg chewable 9-15 tablet by ity of tablet 00:00: mouth [place] 00 daily. Medical Branch aspirin 81 2020-0 Yes [id number] 81mg Take 1 U nivers mg chewable 9-15 tablet by ity of tablet 00:00: mouth [place] 00 daily. Medical Branch aspirin 81 2020-0 Yes [id number] 81mg Take 1 U nivers mg chewable 9-15 tablet by ity of tablet 00:00: mouth [place] 00 daily. Medical Branch aspirin 81 2020-0 Yes [id number] 81mg Take 1 U nivers mg chewable 9-15 tablet by ity of tablet 00:00: mouth [place] 00 daily. Medical Branch aspirin 81 2020-0 Yes [id number] 81mg Take 1 U nivers mg chewable 9-15 tablet by ity of tablet 00:00: mouth [place] 00 daily. Medical Branch aspirin 81 2020-0 Yes [id number] 81mg Take 1 U nivers mg chewable 9-15 tablet by ity of tablet 00:00: mouth [place] 00 daily. Medical Branch aspirin 81 2020-0 Yes [id number] 81mg Take 1 U nivers mg chewable 9-15 tablet by ity of tablet 00:00: mouth [place] 00 daily. Medical Branch metformin 2020-0 Yes 500mg Take 500 Uni vers ER 500 mg 9-14 mg by ity of 24 hr 21:17: mouth [place] tablet 49 daily with Medical breakfast. Branch fenofibrate 2020-0 Yes 54mg Take 54 mg Univers 54 mg 9-14 by mouth ity of tablet 21:17: daily. [place] [address] Medical Branch atorvastati 2020-0 Yes 40mg Take 40 mg Univers n 40 mg 9-14 by mouth ity of tablet 21:17: at [place] 49 bedtime. Medical Branch allopurinoL 2020-0 Yes 300mg Take 300 U nivers 100 mg 9-14 mg by ity of tablet 21:17: mouth [place] 49 daily. Medical Branch glipiZIDE 2020-0 Yes 10mg Take 10 mg Un sparkle 10 mg 9-14 by mouth ity of tablet 21:17: daily. [place] [address] Medical [place] metformin 2019-0 Yes 500mg Take 500 Uni vers ER 500 mg 9-14 mg by ity of 24 hr 21:17: mouth [place] tablet 49 daily with Medical breakfast. Branch fenofibrate 2019-0 Yes 54mg Take 54 mg Univers 54 mg 9-14 by mouth ity of tablet 21:17: daily. [place] [address] Medical Branch atorvastati 2019-0 Yes 40mg Take 40 mg Univers n 40 mg 9-14 by mouth ity of tablet 21:17: at [place] [address] bedtime. Medical Branch allopurinoL 2019-0 Yes 300mg Take 300 U nivers 100 mg 9-14 mg by ity of tablet 21:17: mouth [place] 49 daily. Medical Branch glipiZIDE 2019-0 Yes 10mg Take 10 mg Un sparkle 10 mg 9-14 by mouth ity of tablet 21:17: daily. [address] Branch carvediloL 2019-0 Yes [id number] 12.5mg Take 1 Univers 12.5 mg 9-14 tablet by ity of tablet 00:00: mouth 2 [place] 00 (two) Medical times Branch daily with meals. carvediloL 0 2020- No [id number] 12.5mg Take 1 Univers 12.5 mg 9-14 09-30 tablet by ity of tablet 00:00: 00:00 mouth 2 [place] 00 :00 (two) Medical times Branch daily with meals. Vital Signs Vital Name Observation Time Observation Value Comments Source Systolic blood 2020-10-02 17:45:00 125 mm[Hg] Univer sity of pressure [facility] Diastolic blood 2020-10-02 17:45:00 81 mm[Hg] Unive rsity of [facility] Heart rate 2020-10-02 17:41:00 82 /min [facility] Body height 2020-10-02 17:41:00 175.3 cm [facility] Body weight 2020-10-02 17:41:00 139.708 kg [facility] BMI 2020-10-02 17:41:00 45.48 kg/m2 [facility] Systolic blood 2020-08-20 19:03:00 156 mm[Hg] Univer sity of [facility] Diastolic blood 2020-08-20 19:03:00 95 mm[Hg] Unive rsity of pressure [place] [facility] [place] Heart rate 2020-08-20 19:00:00 67 /min Universi ty [facility] [place] [facility] [place] Body weight 2020-08-20 19:00:00 142.792 kg Universi ty [facility] [place] [facility] BMI 2020-08-20 19:00:00 46.49 kg/m2 Universi ty [facility] Oxygen saturation in 2020-08-20 19:00:00 98 /min University of Arterial blood by [facility] Pulse oximetry Branch Systolic blood 2020-08-14 20:00:00 170 mm[Hg] Univer sity of pressure [place] [facility] [place] Diastolic blood 2020-08-14 20:00:00 85 mm[Hg] Unive rsity of pressure [facility] Respiratory rate 2020-08-14 20:00:00 18 /min Univ ersity of [facility] Heart rate 2020-08-14 19:15:00 61 /min Universi [facility] Oxygen saturation in 2020-08-14 19:15:00 98 /min University of Arterial blood by [facility] Pulse oximetry Branch Body temperature 2020-08-14 16:36:00 37.22 Cyn Univ ersity of [facility] Body height 2020-08-14 16:36:00 175.3 cm Universi ty [facility] Body weight 2020-08-14 16:36:00 142.883 kg Universi ty [facility] [place] [facility] [place] BMI 2020-08-14 16:36:00 46.52 kg/m2 [facility] Procedures Procedure Date / Time Performing Clinician Source Performed ASSIGNMENT OF BENEFITS 2020-10-16 16:59:19 Doctor Unassigned, No [facility] Medical Branch COVID-19 (ID NOW RAPID 2020-09-23 15:31:00 Steve Grande [facility] TESTING) Medical Branch CONSENT/REFUSAL FOR 2020-09-23 14:40:38 Doctor Unassigned, No [facility] DIAGNOSIS AND TREATMENT Name Medical Branch ASSIGNMENT OF BENEFITS 2020-09-23 14:40:20 Doctor Unassigned, No [facility] Branch COVID-19 (ID NOW RAPID 2020-08-14 17:41:[address] [facility] TESTING) Medical Branch XR CHEST 2 VW 2020-08-14 17:27:25 Yuriy Wong Universi ty [facility] LIPASE 2020-08-14 16:56:00 Singer [facility] TROPONIN I 2020-08-14 16:56:00 Singer [facility] COMP. METABOLIC PANEL 2020-08-14 16:56:00 Singer [facility] ([id number]) [facility] CBC WITH DIFF 2020-08-14 16:56:00 Singer [facility] [place] [facility] PROTHROMBIN TIME / INR 2020-08-14 16:56:00 Singer [facility] PARTIAL 2020-08-14 16:56:00 Singer [facility] THRMPLAS [facility] N-TERMINAL PRO-BNP 2020-08-14 16:56:00 Singer [facility] EKG-12 LEAD 2020-08-14 16:53:49 Singer [facility] NOTICE OF PRIVACY 2020-08-14 16:32:14 Doctor Unassigned, No Univ [facility] PRACTICES Name Medical Branch CONSENT/REFUSAL FOR 2020-08-14 16:29:49 Doctor Unassigned, No [facility] DIAGNOSIS AND TREATMENT Name [facility] Encounters Start End Encounter Admission Attending Care Care Encounter Source Date/Time Date/Time Type Type Clinicians Facility Department ID 2020-10-21 2020-10-[address] [facility] [id number] Univers 00:00:00 00:00:00 Ember Real [id number] eric [facility] [id number] Saeid Thrasher [phone] Md dical nal 085 Branch Building 2020-10-18 2020-10-18 Outpatient R [facility] [id number] Univers 19:30:00 19:30:00 [id number] eric [facility] 2020-10-18 2020-10-18 Outpatient R EMBER CORRAL [facility] [id number] Univers 19:30:00 19:30:00 EMBER CORRAL itkali [facility] 2020-10-18 2020-10-18 Director Of Reservations 1, [facility] [place] 1. 2.840.114 [id number] Univers 12:53:38 15:23:38 Visit Ebmer Corral [id number]. 10 ity of [place] [id number] [facility] [id number] [facility] [address] [place] 2020-10-16 2020-10-16 Laboratory Only, [facility] [place] 1.2.840. 114 [id number] Univers 11:00:02 11:15:02 Only Steve Grande Farhan [id number] ity of [place] [id number] [facility] [phone] [facility] 353 Branch 2020-10-16 2020-10-16 Outpatient R [facility] [id number] Univers 11:00:00 11:00:00 ity of [facility] 2020-10-16 2020-10-16 Outpatient R [facility] [id number] Univers 09:00:00 09:00:00 ity of [facility] 2020-10-16 2020-10-16 Outpatient R [facility] [id number] Univers 09:00:00 09:00:00 ity of [facility] 2020-10-16 2020-10-16 Orders Doctor UMESH 1.2.840.114 [id number] Univers 00:00:00 00:00:00 Only Unassigned, PAULO [id number] ity of [place] [facility] [id number] [facility] [phone] [facility] 009 Branch 2020-10-16 2020-10-[address] [facility] [id number] Univers 00:00:00 00:00:00 (Out) Ember Real [id number] ity of [place] [id number] [facility] [phone] [facility] 193 Branch 2020-10-02 2020-10-[address] [facility] [id number] Univers 11:38:35 12:08:35 Visit Ember Real [id number] ity of [place] [id number] [facility] [phone] Md dical nal 085 [facility] 2020-10-02 2020-10-02 Outpatient R EMBER CORRAL [facility] [id number] Univers 11:00:00 11:00:00 MARKZENJUANAARONRonda 2010 18 ity [facility] 2020-10-02 2020-10-02 Outpatient R EMBER CORRAL [facility] [id number] Univers 11:00:00 11:00:00 EMBER CORRAL ity [facility] 2020-09-24 2020-09-24 Director Of Reservations Tech, [facility] 1.2 .840.114 [id number] Univers 13:15:18 13:30:18 Visit Fam Corralryley Real 350.1.13. 10 ity of [place] [id number] [facility] [id number] [address] 2020-09-24 2020-09-24 Outpatient R [facility] [id number] Univers 13:00:00 13:00:00 ity [facility] 2020-09-24 2020-09-24 Outpatient R AARON CORRALRonda [facility] [id number] Univers 13:00:00 13:00:00 [facility] 2020-09-[facility] 2020-09-[address] [facility] [id number] Univers 00:00:00 00:00:00 (Out) Ember Real [id number] ity of [place] [id number] [facility] [id number] [facility] [address] [place] 2020-09-23 2020-09-23 Laboratory Only, Adc Test [facility] 1.2.840. 114 [id number] Univers 08:44:40 08:59:40 Only Steve Grande [id number] ity of [place] 4.2.7.2.686 [facility] [id number] [facility] 353 Branch 2020-09-23 2020-09-23 Outpatient R [facility] [id number] Univers 08:00:00 08:00:00 ity of [facility] 2020-09-23 2020-09-23 Outpatient R [facility] [id number] Univers 08:00:00 08:00:00 ity of [facility] 2020-09-23 2020-09-23 Orders Doctor UMESH 1.2.840.114 [id number] Univers 00:00:00 00:00:00 Only Unassigned, PAULO 350.1.13.10 ity [facility] [id number] Raghu as [id number] [address] 2020-09-20 2020-09-20 Outpatient R [facility] [id number] Univers 13:15:00 13:15:00 ity of [facility] 2020-09-20 2020-09-20 Outpatient R [facility] [id number] Univers 13:15:00 13:15:00 ity of [facility] 2020-09-17 2020-09-17 Outpatient R [facility] [id number] Univers 10:00:00 10:00:00 ity of [facility] 2020-09-17 2020-09-17 [facility] [id number] Univers 10:00:00 10:00:00 MARKRAEGAN AARONRonda ity of [facility] 2020-09-13 2020-09-13 Outpatient R [facility] [id number] Univers 08:00:00 08:00:00 ity of [facility] 2020-09-13 2020-09-13 Outpatient R [facility] [id number] Univers 08:00:00 08:00:00 ity of [facility] 2020-09-11 2020-09-11 Outpatient [facility] [id number] Univers 20:00:00 20:00:00 [id number] ity of [facility] 2020-09-09 2020-09-09 Outpatient [facility] [id number] Univers 08:15:00 08:15:00 [id number] ity [facility] 2020-09-05 2020-09-[address] [facility] [id number] Univers 00:00:00 00:00:00 Milagro Real [id number] ity [id number] [id number] Md dicor nal [address] [place] [address] 2020-08-20 2020-08-20 Office [facility] 1.2.840.114 [id number] Univers 13:52:57 14:40:49 Visit Milagro Real [id number] ity [place] [id number] [phone] [address] 2020-08-20 2020-08-20 Outpatient R [facility] [id number] Univers 14:20:00 14:20:00 MILAGRO reyes o f [facility] 2020-08-20 2020-08-20 Refill [facility] 1.2.840.114 [id number] Univers 00:00:00 00:00:00 Milagro Real [id number] ity [id number] [phone] [address] 2020-08-14 2020-08-14 Emergency Ibikun, [facility] 1.2.840.114 [id number] Univers 11:41:00 15:20:00 Yuriy Real [id number] ity [id number] [phone] [facility] [address] [place] 2020-08-14 2020-08-[address] [facility] ERT [id number] Univers 11:28:00 11:28:00 ity of [facility] 2020-07-30 2020-07-30 Transition Adele Olson 1.2.840.114 [id number] Univers 00:00:00 00:00:00 of Care Donnie Jade [id number] ity [place] [id number] [facility] 403 Branch 2020-07-30 2020-07-30 Transition Adele Olson 1.2.840.114 [id number] 00:00:00 00:00:00 of Care Donnie Jade 350.1.13.10 [place] [id number] [id number] [id number] 2020-07-27 2020-07-27 Outpatient AL RIVAS [facility] [id number] Univers 14:07:00 14:07:00 [facility] Results Test Description Test Time Test Comments Results Result Comments Source COVID-19 (ID NOW RAPID TESTING) 2020-09-23 16:11:00 Test Item Value Reference Range Interpretation Comme nts SARS-CoV-2 Rapid ID NOW (test code Not Detected Not Detected = 66064-7) ZAIDA (test code = ZAIDA) ID NOW COVID-19 Assay is an isothermal nucleic acid amplification test intended for the qualitative detection of nucleic acid from SARS-CoV-2 viral RNA in nasopharyngeal (HEAD ORTHOPEDIC TEAM PHYSICIAN) specimens. It is used under Emergency Use Authorization (EUA) by FDA. The limit of detection (LOD) of the assay is 125 Genome Equivalents/mL. A positive result is indicative of the presence of SARS-CoV-2 RNA. ?Clinical correlation with patient history and other diagnostic information is necessary to determine patient infection status. A negative (Not Detected) result does not preclude SARS-CoV-2 infection. In patients with clinical symptoms and other tests that are consistent with SARS-CoV-2 infection, negative results should be treated as presumptive negative and a new specimen should be tested with alternative PCR molecular test. Invalid: Please collect a new specimen for repeat patient testing if clinically indicated. Lab Interpretation (test code = Normal 47538-9) [facility]ID [facility]2020-08-14 18:18:00 Test Item Value Reference Range Interpretation Comments SARS-CoV-2 Rapid ID NOW Not Detected Not Detected (test code = 89948-2) ZAIDA (test code = ZAIDA) ID NOW COVID-19 Assay is an isothermal nucleic acid amplification test intended for the qualitative detection of nucleic acid from SARS-CoV-2 viral RNA in nasopharyngeal (HEAD ORTHOPEDIC TEAM PHYSICIAN) specimens. It is used under Emergency Use Authorization (EUA) by FDA. The limit of detection (LOD) of the assay is 125 Genome Equivalents/mL. A positive result is indicative of the presence of SARS-CoV-2 RNA. ?Clinical correlation with patient history and other diagnostic information is necessary to determine patient infection status. A negative (Not Detected) result does not preclude SARS-CoV-2 infection. In patients with clinical symptoms and other tests that are consistent with SARS-CoV-2 infection, negative results should be treated as presumptive negative and a new specimen should be tested with alternative PCR molecular test. Invalid: Please collect a new specimen for repeat patient testing if clinically indicated. Lab Interpretation Normal (test code = 92503-2) [facility] 2 [id number] 17:57:50 Interstitial vascular congestion. Bibasilar streaky opacities, likely subsegmental atelectasis. Preliminary Report Dictated by Resident: Afsaneh Acosta MD., have reviewed this study and agree with theabove report.XR CHEST 2 VW HISTORY: 50 years-old; Male; sob COMPARISON: None FINDINGS: Mild interstitial vascular congestion is seen. Bibasilar streaky opacitiesare noted, likely subsegmental atelectasis. No pleural effusion orpneumothorax is identified. The cardiomediastinal silhouette is upper normal. No acute osseous abnormality is identified. Left humeral head anchoringscrews are noted. [facility], Radiant Results Inft User - 08/14/2020 12:59 PM CDTXR CHEST 2 VWHISTORY: 50 years-old; Male; sob COMPARISON: NoneFINDINGS:Mild interstitial vascular congestion is seen. Bibasilar streaky opacitiesare noted, likely subsegmental atelectasis. No pleural effusion orpneumothorax is identified.The cardiomediastinal silhouette is upper normal.No acute osseous abnormality is identified. Left humeral head anchoringscrews are noted.IMPRESSIONInterstitial vascular congestion.Bibasilar streaky opacities, likely subsegmental atelectasis. Preliminary Report Dictated by Resident: Afsaneh Presley MD., have reviewed this study and agree with theabove report.[facility] [id number] 17:28:00 Test Item Value Reference Range Interpretation Comments TROPONIN I (test 0.001 ng/mL See_Comment [Automated code = 3461482689) message] The system which generated this result transmitted reference range : <=0.034. The reference range was not used to interpret this result as normal/abnormal . ZAIDA (test code = Equal or Less than ZAIDA) 0.034 ng/ml---Normal ?Note: Cardiac troponin begins to rise 3-4 hours after the onset of ischemia. Repeat in 4-6 hours if the sample was drawn within 3-4 hours of the onset of the symptom and found normal. Between 0.035 and 0.120 ng/mL--- Borderline. Questionable myocardial injury or necrosis ? ?Note: Serial measurement may be necessary to confirm or exclude the diagnosis of myocardial injury or necrosis; Clinical correlation (symptoms, EKGs, imaging studies, and others) required; Repeat in 4-6 hours if clinically indicated. ? Equal or Higher than 0.121 ng/mL---Abnormal. Myocardial Injury or Necrosis Likely ? Biotin has been reported to cause a negative bias, interpret results relative to patient's use of biotin. ? Lab Interpretation Normal (test code = 89178-9) [facility]MINAL HOF-[id number] 17:25:00 Test Item Value Reference Range Interpretation Comments NT-proBNP (test code 129 pg/mL See_Comment H [Autom ated = 1786235977) message] The system which generated this result transmitted reference range : <=125. The reference range was not used to interpret this result as normal/abnormal . ZAIDA (test code = ZAIDA) Biotin has been reported to cause a negative bias, interpret results relative to patient's use of biotin. Lab Interpretation Abnormal (test code = 15357-8) [facility]TT2020-09-30 17:17:00 Test Item Value Reference Range Interpretation Comments APTT Patient (test See_Comment [Automat ed code = 3173-2) message] The system which generated this result transmitted reference range : 23 - 38 Seconds . The reference range was not used to interpr et this result as normal/abnormal . ZAIDA (test code = ZAIDA) The [facility] patient population mean normal value for aPTT is 30 seconds. Lab Interpretation Normal (test code = 54894-1) [facility]OLIC PANEL (37473)2020-08-14 17:17:00 Test Item Value Reference Range Interpretation Comments NA (test code = 137 mmol/L 135-145 9456656642) K (test code = 4.3 mmol/L 3.5-5 0790295399) CL (test code = 97 mmol/L 98-108 L 0002950730) CO2 TOTAL (test code = 31 mmol/L 23-31 6700829642) AGAP (test code = 2-16 3897146052) BUN (test code = 14 mg/dL 7-23 0206329650) GLUCOSE (test code = 135 mg/dL 70-110 H 9498746818) CREATININE (test code = 1.22 mg/dL 0.6-1.25 6726385559) TOTAL BILI (test code = 1.0 mg/dL 0.1-1.1 9161193361) CALCIUM (test code = 9.1 mg/dL 8.6-10.6 9140858963) T PROTEIN (test code = 7.6 g/dL 6.3-8.2 0495889165) ALBUMIN (test code = 4.0 g/dL 3.5-5 2504451490) ALK PHOS (test code = 90 U/L 34-122 6306777688) ALTv (test code = 22 U/L 5-50 1742-6) AST(SGOT) (test code = 25 U/L 13-40 7957948471) eGFR Calculation mL/min/1.73m2 (Non-) (test code = 0339875356) eGFR Calculation mL/min/1.73m2 () (test code = 3561195979) ZAIDA (test code = ZAIDA) Association of Glomerular Filtration Rate (GFR) and Staging of Kidney Disease* + --+ --+ ------+| GFR (mL/min/1.73 m2) ?| With Kidney Damage ?| ?Without Kidney Damage+ --------+ --------+ +| ?>90 ?| ?Stage one ?| ? Normal ?+ ---+ ---+ -------+| ?60-89 ?| ?Stage two ?| ? Decreased GFR ? + --+ --+ ------+| ?30-59 ?| ?Stage three ?| ? Stage three ? + --+ --+ ------+| ?15-29 ?| ?Stage four ? | ? Stage four ?+ ---+ ---+ -------+| ?<15 (or dialysis) ? ?| ?Stage five ? | ? Stage five ?+ ---+ ---+ -------+ *Each stage assumes the associated GFR level has been in effect for at least three months. ?Stages 1 to 5, with or without kidney disease, indicate chronic kidney disease. Notes: Determination of stages one and two (with eGFR >59mL/min/1.73 m2) requires estimation of kidney damage for at least three months as defined by structural or functional abnormalities of the kidney, manifested by either:Pathological abnormalities or Markers of kidney damage (including abnormalities in the composition of the blood or urine or abnormalities in imaging tests). Lab Interpretation Abnormal (test code = 56351-3) [id number] 17:16:00 Test Item Value Reference Range Interpretation Comments LIPASE (test code = 3026455393) 63 U/L 0-220 Lab Interpretation (test code = Normal 93339-1) [facility] / [id number] 17:14:00 Test Item Value Reference Range Interpretation Comments PROTIME PATIENT (test See_Comment [Auto mated message] code = 5964-2) The system wh ich generated this result transmitted ref erence range: 12.0 - 1 4.7 Seconds. The re ference range was not u sed to interpret this result as normal/abnor mal. INR (test code = 6301-6) Nor mal INR <1.1; Warfarin Therap eutic range 2.0 to 3. 0 or 2.5 to 3.5, dep ending upon the indica tions. Lab Interpretation (test Normal code = 19435-3) [facility] WITH [id number] 17:09:00 Test Item Value Reference Range Interpretation Comments WBC (test code = See_Comment [Automated 8653-2) message] The sy stem which generated this result transmitted reference range : 4.20 - 10.70 10*3/?L. The reference range was not used to interpret this result as normal/abnormal . RBC (test code = See_Comment [Automated 789-8) message] The sy stem which generated this result transmitted reference range : 4.26 - 5.52 10*6/?L. The reference range was not used to interpret this result as normal/abnormal . HGB (test code = 11.3 g/dL 12.2-16.4 L 718-7) HCT (test code = 39.4 % 38.4-49.3 4544-3) MCV (test code = 78.6 fL 81.7-95.6 L 787-2) MCH (test code = 22.6 pg 26.1-32.7 L 785-6) MCHC (test code = 28.7 g/dL 31.2-35 L 786-4) RDW-SD (test code = 41.4 fL 38.5-51.6 88064-5) RDW-CV (test code = 14.6 % 12.1-15.4 788-0) PLT (test code = See_Comment H [Automated 777-3) message] The sy stem which generated this result transmitted reference range : 150 - 328 10*3/ ?L. The reference r matthew was not used to interpret this result as normal/abnormal . MPV (test code = 10.8 fL 9.8-13 63880-2) NRBC/100 WBC (test See_Comment [Automat ed code = 1745335971) message] The system which generated this result transmitted reference range : 0.0 - 10.0 /100 WBCs. The refer ence range was not u sed to interpret th is result as normal/abnormal . NRBC x10^3 (test code <0.01 See_Comment [Auto mated = [id number]) message] The s ystem which generated this result transmitted reference range : 10*3/?L. The reference range was not used to interpret this result as normal/abnormal . GRAN MAT (NEUT) % 65.2 % (test code = 770-8) IMM GRAN % (test code 0.30 % = 6192104816) LYMPH % (test code = 18.9 % 736-9) MONO % (test code = 11.3 % 5905-5) EOS % (test code = 3.7 % 713-8) BASO % (test code = 0.6 % 706-2) GRAN MAT x10^3(ANC) 5.78 10*3/uL 1.99-6.95 (test code = 0236506451) IMM GRAN x10^3 (test 0.03 10*3/uL 0-0.06 code = 4542085809) LYMPH x10^3 (test code 1.68 10*3/uL 1.09-3.23 = 731-0) MONO x10^3 (test code 1.00 10*3/uL 0.36-1.02 = 742-7) EOS x10^3 (test code = 0.33 10*3/uL 0.06-0.53 711-2) BASO x10^3 (test code 0.05 10*3/uL 0.01-0.09 = 704-7) Lab Interpretation Abnormal (test code = 77627-6) [facility]"
[2021-12-08 12:51] LABS: Absolute Lymphocytes (CBC) 2.7 K/uL (0.7-4.9); Hematocrit 25.7 % (39.6-49.0); Lymphocytes % 16.6 % (15.3-44.8); MPV 8.7 fL (7.6-11.3); RBC Red Blood Cell Count 3.38 M/uL (4.33-5.43)
[2021-12-08 13:14] LABS: Platelet Estimate ADEQ; White Blood Cell Scan OK (OK)
[2021-12-08 13:15] LABS: Blood Morphology Comment NOT SEEN (NOT SEEN)
[2021-12-08 13:19] LABS: Bilirubin Direct 0.1 mg/dL (0-0.2); Bilirubin Total 0.5 mg/dL (0.2-1.0); Protein, Total 7.1 g/dL (6.4-8.2)
--- NOTE | 2021-12-08 13:58 | RAD REPORT ---
EXAM DESCRIPTION: CT - Abdomen Pelvis W Contrast - 12/08/2021 1:41 pm CLINICAL HISTORY: bloody stools COMPARISON: No comparisons TECHNIQUE: Biphasic, helical CT imaging of the abdomen and pelvis was performed following 100 ml non -ionic IV contrast. No oral contrast administered. All CT scans are performed using dose optimization technique as appropriate and may include automated exposure control or mA/KV adjustment according to patient size. FINDINGS: No suspicious findings in the lung bases. The liver, spleen, and pancreas show no suspicious findings. Gallbladder and biliary tree are also wi thout suspicious finding. Symmetric renal function is seen with no hydronephrosis or suspicious renal mass. No pyelonephritis o r acute parenchymal process. No bladder abnormalities. No adrenal abnormalities. Stomach and small bowel show no suspicious findings. Appendix is normal. Colon shows a mild diverticu losis pattern without diverticulitis. No colon wall thickening or mass. Moderate stool volume is pres ent throughout the colon filling but not dilating the lumen. No perirectal mass or edema. No free ai r, free fluid or inflammatory stranding. No mass or bulky lymphadenopathy. Fat only umbilical hernia present not seen as significant. No suspicious bony findings. IMPRESSION: Patient has minimal diverticulosis pattern with no diverticulitis. No mass or other foca l abnormality seen to explain bloody stool history provided by the patient. No significant or suspicious findings identifiable.
[2021-12-08] MEDS ORDERED: PANTOPRAZOLE 40 MG INJ ONE ×2 (14:41→23:56)
[2021-12-08] MEDS ORDERED: PANTOPRAZOLE INJ 80 MG in NA CHLORIDE 0.9% 250 ML IV ONE (15:00)
[2021-12-08] MEDS ORDERED: NA CHLORIDE 0.9% 1,000 ML ONE ×2 (15:28→20:45)
--- NOTE | 2021-12-08 16:35 | EDPHYS ---
Physician Documentation [facility] Name: Russel Sotelo Age: 51 yrs Sex: Male : 1970 Arrival Date: 12/08/2021 Time: 11:30 Bed 20 Private MD: ED Physician Brendon Hickman HPI: 12/08 12:29 This 51 yrs old Black Male presents to ER via Ambulatory with complaints of Blood In jmm Stool. 12:29 The patient presents to the emergency department with bleeding from the rectum/anus. jmm Onset: The symptoms/episode began/occurred gradually, 2 day(s) ago. Modifying factors: The symptoms are alleviated by cool compress, The symptoms are aggravated by bowel movement. Associate signs and symptoms: Pertinent positives: abdominal pain in the left lower quadrant. This is a 51-year-old male with history of diabetes mellitus, hypertension, hyperlipidemia, gastric ulcer the presents emerged department with complaints of rectal bleeding. Patient states that his bowel movements were all blood. Also complains of some mild left lower quadrant abdominal pain. Denies vomiting. Denies fever.. - Immunization history:: Adult Immunizations up to date, Client reports receiving the 2nd dose of the Covid vaccine, Flu vaccine is up to date. - Social history:: Smoking status: Patient denies any tobacco usage or history of. ROS: 12:29 Constitutional: Negative for fever, chills, and weight loss, Cardiovascular: Negative jmm for chest pain, palpitations, and edema, Respiratory: Negative for shortness of breath, cough, wheezing, and pleuritic chest pain. 12:29 Abdomen/GI: Positive for abdominal pain, black/tarry stool. 12:29 All other systems are negative. Exam: 12:29 Constitutional: This is a well developed, well nourished patient who is awake, alert, jmm and in no acute distress. Head/Face: atraumatic. Eyes: EOMI, no conjunctival erythema appreciated ENT: Moist Mucus Membranes Neck: Trachea midline, Supple Chest/axilla: Normal chest wall appearance and motion. Cardiovascular: Regular rate and rhythm. No edema appreciated Respiratory: Normal respirations, no respiratory distress appreciated 12:29 Back: Normal ROM Skin: General appearance color normal MS/ Extremity: Moves all extremities, no obvious deformities appreciated, no edema noted to the lower extremities Neuro: Awake and alert Psych: Behavior is normal, Mood is normal, Patient is cooperative and pleasant 12:29 Abdomen/GI: Inspection: abdomen appears normal, Bowel sounds: normal, Palpation: soft, mild abdominal tenderness, in the left lower quadrant, Rectal exam: Stool: guaiac positive, black. Vital Signs: 11:56 BP 105 / 72; Pulse 94; Resp 18 S; Temp 97.8(TE); Pulse Ox 97% on R/A; Weight 136.08 kg jd3 (R); Height 5 ft. 9 in. (175.26 cm) (R); Pain 5/10; 14:45 BP 99 / 52; Pulse 88; Resp 18; Pulse Ox 97% ; ll1 16:08 BP 121 / 72; Pulse 77; Resp 18; Temp 98.1; Pulse Ox 97% on R/A; ll1 19:11 BP 95 / 60; Pulse 87; Resp 18 S; Temp 98.2(TE); Pulse Ox 98% on R/A; as6 11:56 Body Mass Index 44.30 (136.08 kg, 175.26 cm) jd3 MDM: 12:39 Patient medically screened. [facility] 16:32 Data reviewed: vital signs, nurses notes. Counseling: I had a detailed discussion with [facility] the patient and/or guardian regarding: the historical points, exam findings, and any diagnostic results supporting the discharge/admit diagnosis, lab results, radiology results, the need for further work-up and treatment in the hospital. ED course: I discussed the patient with Dr. Villagomez whom will consult on the admission. Discussed with Dr. Davis whom accepted admission to his service.. 12/08 12:29 Order name: Basic Metabolic Panel [facility] 12/08 12:29 Order name: CBC with Diff [facility] 12/08 12:29 Order name: Hepatic Function; Complete Time: 13:25 [facility] 12/08 12:29 Order name: Lipase; Complete Time: 13:25 [facility] 12/08 12:29 Order name: Type And Screen [facility] 12/08 12:30 Order name: Basic Metabolic Panel; Complete Time: 13:25 [facility] 12/08 12:30 Order name: CBC with Automated Diff [facility] 12/08 13:01 Order name: Bb Add On bd 12/08 13:05 Order name: Packed RBC Leukored [facility] 12/08 13:15 Order name: CBC Smear Scan EDID 12/08 14:01 Order name: ABO/RH no charge; Complete Time: 14:12 [facility] 12/08 14:49 Order name: Occult Blood--Ancillary; Complete Time: 15:25 bd 12/08 15:26 Order name: SARS-COV-2 RT PCR (Document "Date of Onset" if Symptomatic); Complete Time: [facility] 17:29 12/08 17:37 Order name: Basic Metabolic Panel [facility] 12/08 17:37 Order name: Basic Metabolic Panel [facility] 12/08 17:37 Order name: Protime (+INR) EDID 12/08 17:37 Order name: Protime (+INR) [facility] 12/08 17:37 Order name: PTT, Activated Partial Thromb EDID 12/08 17:37 Order name: PTT, Activated Partial Thromb [facility] 12/08 17:38 Order name: CBC with Automated Diff EDID 12/08 17:38 Order name: CBC with Automated Diff [facility] 12/08 17:38 Order name: Hemoglobin [facility] 12/08 17:38 Order name: Hemoglobin [facility] 12/08 17:38 Order name: Hemoglobin [facility] 12/08 17:38 Order name: Hematocrit [facility] 12/08 17:39 Order name: Hematocrit [facility] 12/08 17:39 Order name: Hematocrit [facility] 12/08 12:29 Order name: IV Saline Lock; Complete Time: 12:32 [facility] 12/08 12:29 Order name: Labs collected and sent; Complete Time: 12:32 [facility] 12/08 12:29 Order name: CT Abd/Pelvis - IV Contrast Only; Complete Time: 14:12 [facility] 12/08 17:38 Order name: CONS Physician Consult EDID 12/08 17:38 Order name: NPO EDID 12/08 17:38 Order name: EKG Electrocardiogram ED[facility] 12/08 17:38 Order name: EKG Electrocardiogram [facility] 12/08 17:38 Order name: EKG Electrocardiogram [facility] 12/08 17:38 Order name: EKG Electrocardiogram EDID 12/08 17:38 Order name: EKG Electrocardiogram EDID 12/08 17:38 Order name: EKG Electrocardiogram EDID 12/08 17:38 Order name: EKG Electrocardiogram EDID 12/08 17:38 Order name: EKG Electrocardiogram EDID 12/08 17:38 Order name: EKG Electrocardiogram EDMS 12/08 17:38 Order name: EKG Electrocardiogram EDMS 12/08 17:38 Order name: EKG Electrocardiogram EDMS Administered Medications: 14:47 Drug: ProTONIX (pantoprazole) 40 mg Route: IVP; Site: left antecubital; ll1 15:33 Follow up: Response: No adverse reaction ll1 15:33 Drug: ProTONIX (pantoprazole) 8 mg/hr Route: IV; Rate: 25 ml/hr; Site: left antecubital;ll1 21:15 Follow up: Response: No adverse reaction; IV Status: Infusion continued upon admission as6 Disposition: 12/09 09:02 Co-signature as Attending Physician, Brendon Hickman MD I agree with the assessment and kdr plan of care. Disposition Summary: 12/08/21 16:34 Hospitalization Ordered Hospitalization Status: Observation [facility] Provider: Lupis Davis Location: Telemetry/MedSurg (observation) jm Condition: Stable jm Problem: new m Symptoms: are unchanged [facility] Bed/Room Type: Standard [facility] Room Assignment: 224(12/09/21 01:44) bb Diagnosis - GI Bleed/ Gastrointestinal hemorrhage, unspecified [facility] Forms: - Medication Reconciliation Form jmm - SBAR form [facility] Signatures: Dispatcher [employer] EDID Brendon Hickman MD MD kdr Mickail, Joel, PA PA m Micki Blakely RN RN bb Davies, Jonathon, RN RN jd3 Lewis, Lynsay, RN RN ll1 David Galindo RN RN as6 Corrections: (The following items were deleted from the chart) 12/08 13:06 12:59 PACKED RBC LEUKORED -1+BB.LAB.BRZ ordered. EDMS EDMS 13:06 12:59 ABO/RH typing ordered. EDMS EDMS 13:06 12:59 Antibody Screen ordered. EDMS EDMS 19:30 19:30 PMHx: Hypertension; as6 as6 19:30 19:30 PMHx: Hyperlipidemia; as6 as6 19:30 19:30 PMHx: Diabetes - NIDDM; as6 as6 19:30 19:30 PMHx: CHF; as6 as6 19:30 19:30 PMHx: minor kidney problems; as6 as6 12/09 01:44 12/08 16:34 jmm bb
--- NOTE | 2021-12-08 16:35 | ER ---
Nurse's Notes [facility] Name: Russel Sotelo Age: 51 yrs Sex: Male : 1970 Arrival Date: 12/08/2021 Time: 11:30 Bed 20 Private MD: Diagnosis: GI Bleed/ Gastrointestinal hemorrhage, unspecified Presentation: 12/08 11:54 Chief complaint: Patient states: "when i use the bathroom all that comes out is blood. jd3 since Wednesday.". Coronavirus screen: At this time, the client does not indicate any symptoms associated with coronavirus-19. Ebola Screen: No symptoms or risks identified at this time. Initial Sepsis Screen: Does the patient meet any 2 criteria? No. Patient's initial sepsis screen is negative. Does the patient have a suspected source of infection? No. Patient's initial sepsis screen is negative. Risk Assessment: Do you want to hurt yourself or someone else? Patient reports no desire to harm self or others. Onset of symptoms was December 08, 2021. 11:54 Method Of Arrival: Ambulatory j 11:54 Acuity: TRUE 3 jd3 - Immunization history:: Adult Immunizations up to date, Client reports receiving the 2nd dose of the Covid vaccine, Flu vaccine is up to date. - Social history:: Smoking status: Patient denies any tobacco usage or history of. Screenin:21 Abuse screen: Denies threats or abuse. Nutritional screening: No deficits noted. ll1 Tuberculosis screening: No symptoms or risk factors identified. Fall Risk Total [place] Fall Scale indicates No Risk (0-24 pts). Assessment: 12:22 General: Appears in no apparent distress. Behavior is calm, cooperative, appropriate ll1 for age. Pain: Denies pain. Neuro: Level of Consciousness is awake, alert, obeys commands, Oriented to person, place, time, situation, Appropriate for age Conservation Specialist are equal bilaterally Moves all extremities. Full function Gait is steady, Reports weakness. Cardiovascular: No deficits noted. Respiratory: No deficits noted. GI: Abdomen is flat, Bowel sounds present X 4 quads. Abd is soft and non tender X 4 quads. Reports constipation, rectal bleeding, bloody stool. 13:20 Reassessment: No changes from previously documented assessment. Patient and/or family ll1 updated on plan of care and expected duration. Pain level reassessed. Patient is alert, oriented x 3, equal unlabored respirations, skin warm/dry/pink. 14:20 Reassessment: No changes from previously documented assessment. Patient and/or family ll1 updated on plan of care and expected duration. Pain level reassessed. Patient is alert, oriented x 3, equal unlabored respirations, skin warm/dry/pink. 15:20 Reassessment: No changes from previously documented assessment. Patient and/or family ll1 updated on plan of care and expected duration. Pain level reassessed. Patient is alert, oriented x 3, equal unlabored respirations, skin warm/dry/pink. 16:11 Reassessment: Patient appears in no apparent distress at this time. No changes from ll1 previously documented assessment. Patient and/or family updated on plan of care and expected duration. Pain level reassessed. Patient is alert, oriented x 3, equal unlabored respirations, skin warm/dry/pink. 19:29 Reassessment: Patient appears in no apparent distress at this time. Patient and/or as6 family updated on plan of care and expected duration. Pain level reassessed. Patient is alert, oriented x 3, equal unlabored respirations, skin warm/dry/pink. Vital Signs: 11:56 BP 105 / 72; Pulse 94; Resp 18 S; Temp 97.8(TE); Pulse Ox 97% on R/A; Weight 136.08 kg jd3 (R); Height 5 ft. 9 in. (175.26 cm) (R); Pain 5/10; 14:45 BP 99 / 52; Pulse 88; Resp 18; Pulse Ox 97% ; ll1 16:08 BP 121 / 72; Pulse 77; Resp 18; Temp 98.1; Pulse Ox 97% on R/A; ll1 19:11 BP 95 / 60; Pulse 87; Resp 18 S; Temp 98.2(TE); Pulse Ox 98% on R/A; as6 11:56 Body Mass Index 44.30 (136.08 kg, 175.26 cm) jd3 ED Course: 11:30 Patient arrived in ED. ds1 11:55 Triage completed. jd3 11:56 Arm band placed on. jd3 12:20 Amaris Yusuf RN is Primary Nurse. ll1 12:21 Patient placed in an exam room, on a stretcher. ll1 12:21 Patient has correct armband on for positive identification. Bed in low position. Call ll1 light in reach. Side rails up X 1. Pulse ox on. NIBP on. 12:28 Al Lopez PA is PHCP. [facility] 12:28 Brendon Hickman MD is Attending Physician. [facility] 12:30 Inserted saline lock: 20 gauge in left antecubital area, using aseptic technique. Blood ll1 collected. 13:41 CT Abd/Pelvis - IV Contrast Only In Process Unspecified. EDMS 15:40 Inserted saline lock: 20 gauge in right antecubital area, using aseptic technique. ll1 16:33 Lupis Davis MD is Hospitalizing Provider. [facility] 21:26 David Galindo, OLAYINKA is Primary Nurse. as6 12/09 02:57 No provider procedures requiring assistance completed. Patient admitted, IV remains in as6 place. Administered Medications: 12/08 14:47 Drug: ProTONIX (pantoprazole) 40 mg Route: IVP; Site: left antecubital; ll1 15:33 Follow up: Response: No adverse reaction ll1 15:33 Drug: ProTONIX (pantoprazole) 8 mg/hr Route: IV; Rate: 25 ml/hr; Site: left antecubital;ll1 21:15 Follow up: Response: No adverse reaction; IV Status: Infusion continued upon admission as6 Outcome: 16:34 Decision to Hospitalize by Provider. [facility] 12/09 02:57 Admitted to Med/surg accompanied by nurse, via stretcher, room 224, with chart, Report as6 called to Mo BHAGAT Condition: stable 03:02 Patient left the ED. as6 Signatures: Dispatcher [employer] EDAR Al Lopez PA PA jmm Sanford, Demi ds1 Heri Mccann RN RN jd3 Lewis, Lynsay, RN RN ll1 David Galindo, OLAYINKA RN as6 Corrections: (The following items were deleted from the chart) 12/08 19:30 19:30 PMHx: Hypertension; as6 as6 19:30 19:30 PMHx: Hyperlipidemia; as6 as6 19:30 19:30 PMHx: Diabetes - NIDDM; as6 as6 19:30 19:30 PMHx: CHF; as6 as6 :30 19:30 PMHx: minor kidney problems; as6 as6
[2021-12-08] MEDS ORDERED: ACETAMINOPHEN 500 MG TAB PO PRN (17:33)
[2021-12-08] MEDS ORDERED: MORPHINE 2 MG/ML SYR IV PRN (17:33)
[2021-12-08] MEDS ORDERED: ONDANSETRON 4 MG/2 ML VIAL IV PRN (17:33)
[2021-12-08] MEDS: OCTREOTIDE 500 MCG in NA CHLORIDE 0.9% 500 ML IV SCH (18:00)
[2021-12-08] MEDS ORDERED: NA CHLORIDE 0.9% 250 ML IV SCH (18:00)
[2021-12-08] MEDS: NA CHLORIDE 0.9% 1,000 ML IV SCH (18:00)
--- NOTE | 2021-12-08 18:04 | P.HP ---
Certification for Inpatient Patient admitted to: Inpatient With expected LOS: >2 Midnights Patient will require the following post-hospital care: None Practitioner: I am a practitioner with admitting privileges, knowledge of patient current condition, hospital course, and medical plan of care. Services: Services provided to patient in accordance with Admission requirements found in Title 42 Section 412.3 of the Code of Federal Regulations Patient History Date of Service: 12/08/21 Reason for admission: Gastrointestinal bleeding History of Present Illness: Patient is a 51-year-old gentleman who came to the hospital with GI bleeding. Patient has been taking a lot of ibuprofen for low back pain. Patient stated that he took about 60 over the last month. His back pain has improved so he was not taking as many. But he was not feeling really well over the last few days. Patient had melanotic stool. Patient decided to come into the emergency room for further evaluation. Patient's hemoglobin was 7.6. Patient was slightly hypotensive with a blood pressure of 100/60. Patient was given 2 units of packed red blood cells. Patient will be admitted for further treatment. Allergies No Known Allergies Allergy (Unverified 06/26/18 17:56) Home Medications: Amlodipine [Norvasc*] 10 mg PO DAILY 03/18/19 Atorvastatin Calcium [Lipitor] 40 mg PO BEDTIME 03/18/19 Metformin HCl [Glucophage*] 500 mg PO BID 03/18/19 allopurinoL [Zyloprim*] 300 mg PO DAILY 03/18/19 Carvedilol [Coreg] 25 mg PO BID 12/09/21 Dapagliflozin Propanediol [Farxiga] 10 mg PO DAILY 12/09/21 Lisinopril [Zestril] 20 mg PO BID 12/09/21 - Past Medical/Surgical History Diabetic: Yes -: Hypertension -: Type 2 diabetes -: Dyslipidemia Past Surgical History: Patient denies surgical history - Family History Mother Medical History: Heart disease, Hypertension, Diabetes, Kidney disease Notes: mother on dialysis - Social History Smoking Status: Former smoker Alcohol use: No CD- Drugs: No Caffeine use: Yes Review of Systems 10-point ROS is otherwise unremarkable Physical Examination - Vital Signs Temperature: 98 F Blood Pressure: 140/80 Pulse: 80 Respirations: 18 Pulse Ox (%): 98 - Physical Exam General: Alert, In no apparent distress, Oriented x3 HEENT: Atraumatic, PERRLA, Mucous membr. moist/pink, EOMI, Sclerae nonicteric Neck: Supple, 2+ carotid pulse no bruit, No LAD, Without JVD or thyroid abnormality Respiratory: Clear to auscultation bilaterally, Normal air movement Cardiovascular: Regular rate/rhythm, Normal S1 S2 Gastrointestinal: Normal bowel sounds, Soft and benign, Non-distended, Tenderness Musculoskeletal: No clubbing, No swelling, No tenderness Integumentary: No rashes Neurological: Normal gait, Normal speech, Normal strength at 5/5 x4 extr, Normal tone, Sensation intact, Cranial nerves 3-12 intact, Normal affect Lymphatics: No axilla or inguinal lymphadenopathy - Studies Laboratory Data (last 24 hrs) 12/08/21 12:35: WBC 16.40 H, Hgb 7.6 L, Hct 25.7 L, Plt Count 291 12/08/21 12:35: Sodium 137, Potassium 4.0, BUN 16, Creatinine 1.25, Glucose 177 H, Total Bilirubin 0.5, AST 7 L, ALT 20, Alkaline Phosphatase 84, Lipase 346 Microbiology Data (last 24 hrs): 12/08/21 14:49 Stool Occult Blood - Final Assessment & Plan - Problems (Diagnosis) (1) Lower GI bleed Current Visit: Yes Status: Acute (2) Anemia due to acute blood loss Current Visit: Yes Status: Acute - Plan Plan: 1. Continue with IV hydration and PPI drip 2. Continue with IV antibiotics 3. Continue with pain control 4. NPO 5. GI consultation 6. Serial H&H, and we will monitor LFTs and lipase along with electrolytes. 7. GI and DVT prophylaxis Discharge Plan: Home Plan to discharge in: Greater than 2 days - Advance Directives Does patient have a Living Will: No Does patient have a Durable POA for Healthcare: No - Code Status/Comfort Care Code Status Assessed: Yes Code Status: Full Code Critical Care: No Time Spent Managing PTS Care (In Minutes): 45
[2021-12-08 20:42] VITALS: BMI 44.3
[2021-12-08 22:37] LABS: Hematocrit 29.4 % (39.6-49.0)
[2021-12-08] MEDS ORDERED: NA CHLORIDE 0.9% 250 ML ONE (23:56)
[2021-12-09] MEDS ORDERED: PANTOPRAZOLE INJ 80 MG in NA CHLORIDE 0.9% 250 ML IV SCH (03:00)
[2021-12-09] MEDS: OCTREOTIDE 500 MCG in NA CHLORIDE 0.9% 500 ML IV SCH ×3 (04:00→22:00)
[2021-12-09 04:45] LABS: Absolute Lymphocytes (CBC) 2.9 K/uL (0.7-4.9); MPV 8.8 fL (7.6-11.3)
[2021-12-09 04:49] LABS: Protime INR 1.01
[2021-12-09 04:50] LABS: Hematocrit 29.3 % (39.6-49.0); Lymphocytes % 16.6 % (15.3-44.8); RBC Red Blood Cell Count 3.78 M/uL (4.33-5.43)
[2021-12-09 05:00] LABS: Potassium 4.1 mmol/L (3.5-5.1)
[2021-12-09] MEDS: NA CHLORIDE 0.9% 1,000 ML IV SCH ×2 (07:20→19:25)
[2021-12-09] MEDS ORDERED: NA CHLORIDE 0.9% 50 ML ONE (09:28)
[2021-12-09] MEDS: PANTOPRAZOLE INJ 80 MG in NA CHLORIDE 0.9% 250 ML IV SCH ×2 (12:07→22:18)
[2021-12-09 21:58] LABS: Hematocrit 32.6 % (39.6-49.0)
[2021-12-10] MEDS: OCTREOTIDE 500 MCG in NA CHLORIDE 0.9% 500 ML IV SCH (00:23)
[2021-12-10] MEDS: NA CHLORIDE 0.9% 1,000 ML IV SCH ×4 (01:39→15:25)
[2021-12-10 06:26] LABS: Absolute Lymphocytes (CBC) 1.8 K/uL (0.7-4.9); Hematocrit 29.6 % (39.6-49.0); Lymphocytes % 13.9 % (15.3-44.8); MPV 8.7 fL (7.6-11.3); RBC Red Blood Cell Count 3.77 M/uL (4.33-5.43)
[2021-12-10 07:07] LABS: Albumin 2.8 g/dL (3.4-5.0); Bilirubin Total 0.7 mg/dL (0.2-1.0); Folic Acid, (Folate) 12.3 ng/mL (3.1-17.5); Magnesium 2.1 mg/dL (1.8-2.4); Potassium 3.9 mmol/L (3.5-5.1); Protein, Total 6.7 g/dL (6.4-8.2)
[2021-12-10] MEDS: PANTOPRAZOLE INJ 80 MG in NA CHLORIDE 0.9% 250 ML IV SCH ×3 (08:17→21:36)
[2021-12-10 09:55] LABS: Platelet Estimate ADEQ; White Blood Cell Scan OK (OK)
[2021-12-10] MEDS ORDERED: LIDOCAINE 1% MPF 5 ML VIAL ONE (09:55)
[2021-12-10] MEDS ORDERED: propofoL 200 MG/20 ML VIAL IV ONE (09:55)
[2021-12-10 09:56] LABS: Anisocytosis 2+; Blood Morphology Comment NOTED (NOT SEEN); Platelets, Giant FEW PRESENT; Polychromasia 1+
[2021-12-10] MEDS ORDERED: EPINEPHRINE/PF 1 MG/ML AMP ONE (10:27)
--- NOTE | 2021-12-10 10:50 | ENDO RPT ---
[address], [address] EGD PROCEDURE REPORT EXAM DATE: 12/10/2021 PATIENT NAME: Russel Sotelo MR#: [id number] BIRTHDATE: 1970 ATTENDING: Rashad Villagomez Dr STATUS: inpatient OBSTETRICS SCRUB NURSE: Megha Escalera RN INDICATIONS: The patient is a 51 yr old Male here for an EGD due to melenic bleeding, hematemesis, nausea and vomiting, and anemia PROCEDURE PERFORMED: EGD with biopsy and EGD for control of bleeding MEDICATIONS: Per Anesthesia. TOPICAL ANESTHETIC: none CONSENT: The patient understands the risks and benefits of the procedure and understands that these risks include, but are not limited to: sedation, allergic reaction, infection, perforation and/or bleeding. Alternative means of evaluation and treatment include, among others: physical exam, x-rays, and/or surgical intervention. The patient elects to proceed with this endoscopic procedure. DESCRIPTION OF PROCEDURE: During intra-op preparation period all mechanical medical equipment was checked for proper function. Hand hygiene and appropriate measures for infection prevention was taken. Procedure, possible complications, and alternatives including but not limited to the possibility of bleeding, perforation, tear, infection, sepsis, need for surgery, need for blood transfusion, and anesthesia related complications were explained to the patient. After the risks, benefits and alternatives of the procedure were thoroughly explained, Informed consent was verified, confirmed and timeout was successfully executed by the treatment team. The patient was placed in the left lateral position. The patient was anesthetized with topical anesthesia. Through the anesthetized oropharyngeal area, the scope was passed without any difficulty. The EG-[id number] ([id number]) endoscope was introduced through the mouth and advanced to the second portion of the duodenum. Retroflexed views revealed no abnormalities. The gastroscope was then slowly withdrawn and removed. Mild gastritis with nodular mucosa was found in the body and inflammation / erythema in the pre-pyloric antrum of the stomach, s/p biopsies. Large 2 cm ulcer with central small visible non-bleeding vessel was found in the bulb of the duodenum (unable to grasp with endoclip), s/p 4 cc Epinephrine (1:10,000) injected around vessel. No active bleeding noted. ADVERSE EVENTS: There were no complications. IMPRESSIONS: 1. Mild gastritis with nodular mucosa in the body and inflammation / erythema in the pre-pyloric antrum of the stomach, s/p biopsies 2. Large 2 cm ulcer with central small visible non-bleeding vessel in the bulb of the duodenum (unable to grasp with endoclip), s/p 4 cc Epinephrine (1:10,000) injected around vessel 3. No active bleeding noted RECOMMENDATIONS: 1. await biopsy results 2. acid suppression therapy REPEAT EXAM: Return in 3 month(s) for EGD (h/o bleeding PUD 2001 at [facility] in [place], [place]). Rashad Villagomez Dr eSigned: Rashad Villagomez Dr 12/10/2021 10:49 AM cc: Lupis Davis CPT CODES: ICD9 CODES: PATIENT NAME: Russel Sotelo MR#: [id number]
--- NOTE | 2021-12-10 13:15 | CON ---
Date of Consultation: 12/10/2021 Reason For Consultation: GI bleed with melena over the past 6 days with anemia. History Of Present Illness: The patient is a 51-year-old male with history of diabetes, hypertension, hyperlipidemia, and bleeding ulcer in 2001. The patient presented to the hospital with melena over the past 6 days. The patient states he was in usual state of health until last when he started having nausea the morning before he went to work. On the way to work, he started having nausea and vomiting and vomited up black coffee-grounds emesis, became lightheaded and weakness and decided to go home. At home, he had some black stools as well. He decided to stay at home from work that day. He did not go to work on Wednesday and stayed home over the week and Wednesday. On Wednesday, he started having more melena and decided to come to the hospital for further evaluation because of his weakness and he has shortness of breath and only walked a few feet and he was exhausted. He did have a bleeding peptic ulcer in 2001, went to [facility] in [place] in [place]. He was on Nexium he states for about 3 weeks and then his symptoms seemed to resolve. Past Medical History: Significant for diabetes, hypertension, hyperlipidemia, obesity, bleeding ulcer in 2001 at [facility] in [place], [place] with Nexium therapy, left shoulder surgery in 1993 from an old football injury in high school and never healed correctly. Medications: Include Norvasc, Lipitor, glipizide, lisinopril, Glucophage, zyloprim, 70/30 Novolin insulin, Humalog, Lopid. Allergies: NKDA. Social History: He is . No children. Positive for tobacco. He states 1 cigar per month, but he does dip Elverta [place] half a can day. No alcohol. 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 Family History: Father of a hole in his liver, he said he thinks it is a liver cancer. His mother with diabetes, hypertension, end-stage renal disease on hemodialysis and had myocardial infarction. Review of Systems: The patient has melena for the past 6 days, coffee-grounds emesis, nausea, vomiting. He denies any belly pain, fevers, chills, night sweats, hemoptysis, hematuria, dysuria, polydipsia, chest pain. He did have some shortness of breath and dyspnea on exertion due to his anemia from loss of blood. He denies any lower extremity edema, muscle aches, joint aches, backaches, depression, anxiety. Physical Examination: Vital Signs: The patient is 5 feet 9 inches, 300 pounds, BMI of 44 kg/m2. Temperature 98.3 degrees Fahrenheit, pulse 84, respirations 20, blood pressure 129/70, O2 saturation 99%. General: Obese male, sitting on side of his bed, in no acute distress. HEENT: Normocephalic, atraumatic. Anicteric. Pupils equal, round, and reactive to light. Extraocular movements intact. Oropharynx is clear. Neck: Supple. No masses. Respirations: Clear to auscultation bilaterally. Cardiac: Regular rate and rhythm. No gallops. Gastrointestinal: Positive bowel sounds. Soft, nontender, nondistended. No hepatosplenomegaly. He is obese. No peritoneal signs. No rebound. Extremities: No clubbing, cyanosis, or edema. 2+ pulses. Neuro: Alert and oriented x3. Grossly nonfocal. 5/5 motor. Sensation intact to light touch. Laboratory Data: The patient has a white count of 13.2, hemoglobin 8.8 and had been as low as 7.6 on admission. He received 2 units of packed RBCs. Hematocrit 29.6, MCV of 79, platelet count of 261, polys of 75%, lymphocytes 14%, monocytes 9%, eosinophils 2%. PT of 11.6, INR of 1.01, PTT of 28.7. Sodium 138, potassium 3.9, , bicarb 28, BUN 10, creatinine of 1.14, glucose 148, calcium 7.8, magnesium 2.1, iron of 33, total bilirubin 0.7, AST of 10, ALT of 18, alkaline phosphatase 85, total protein 6.7, albumin 2.8, B12 of 948, folate of 12.3. COVID-[address] abdomen and pelvis revealed minimal diverticulosis. No diverticulitis. Otherwise negative. I do not have the exact location of diverticulosis. It is only in the colon and there was a fat and small umbilical hernia is present. It is not significant as reported. Impression: 1. Gastrointestinal bleed with melena over the past 6 days with a history of bleeding peptic ulcer in 2001 at [facility] in [place], [place] with subsequent Nexium for only 3 weeks. The patient now appears to have repeat gastrointestinal bleed with melena and coffee-grounds emesis over the past 6 days. He says that on last when he was trying to go to work, he had nausea that morning, then started having nausea, vomiting, coffee-grounds emesis, had to stop his car and turn around to go back home. He had lightheadedness, weakness, and subsequent melena, which has been off and on over the past 6 days. Family came to the hospital because he has shortness of breath and dyspnea walking a short distance across the room and need further evaluation and care. On admission in the emergency room, he had a hemoglobin of 7.6. He got 2 units since admission. His hemoglobin now is 8.8. PT, INR normal. Does not appear to be on any blood thinners. Need to proceed with EGD with his history of bleeding peptic ulcer disease from 20 years ago. 2. History of diabetes, hypertension, hyperlipidemia, obesity, left shoulder surgery in 1993 and bleeding peptic ulcer disease as noted above. Recommendations: 1. Continue IV fluids resuscitation. Continue IV Protonix. 2. Continue IV octreotide. Keep the patient n.p.o. 3. Serial H and H and transfuse p.r.n. Agree with 2 units of packed RBCs that are being given. 4. We will proceed with EGD urgently. ADDIE/KENIA Voice ID: [id number] Report ID: [id number] APOLONIA
[2021-12-10] MEDS ORDERED: ATORVASTATIN 40 MG TAB PO SCH (21:00)
[2021-12-10] MEDS: lisinopriL 20 MG TAB PO SCH (21:36)
[2021-12-10] MEDS: carvediloL 25 MG TAB PO SCH (21:36)
--- NOTE | 2021-12-10 22:00 | P.PN ---
Subjective Date of Service: 12/09/21 Patient's hemoglobin had decreased. Patient was given 2 units of packed red blood cells. Decision was made to consult GI and EGD will be performed in the morning. Review of Systems 10-point ROS is otherwise unremarkable Physical Examination - Vital Signs Temperature: 98 F Blood Pressure: 140/80 Pulse: 80 Respirations: 18 Pulse Ox (%): 98 - Physical Exam General: Alert, In no apparent distress, Oriented x3 HEENT: Atraumatic, PERRLA, EOMI Respiratory: Clear to auscultation bilaterally, Normal air movement Cardiovascular: Regular rate/rhythm, Normal S1 S2 Gastrointestinal: Normal bowel sounds, Soft and benign, Non-distended, No rebound, No guarding, Tenderness Musculoskeletal: No clubbing, No swelling, No tenderness Neurological: Sensation intact, Cranial nerves 3-12 intact - Studies Medications List Reviewed: Yes Assessment & Plan - Problems (Diagnosis) (1) Lower GI bleed Current Visit: Yes Status: Acute (2) Anemia due to acute blood loss Current Visit: Yes Status: Acute - Plan Plan: Continue with plan of care as mentioned below: 1. Continue with IV hydration and PPI drip 2. Continue with IV antibiotics 3. Continue with pain control 4. NPO 5. GI consultation appreciated 6. Serial H&H, 7. GI and DVT prophylaxis Discharge Plan: Home Plan to discharge in: Greater than 2 days - Advance Directives Does patient have a Living Will: No Does patient have a Durable POA for Healthcare: No - Code Status/Comfort Care Code Status: Full Code Critical Care: No Time Spent Managing PTS Care (In Minutes): 35
--- NOTE | 2021-12-10 22:02 | P.PN ---
Date of Service: 12/10/21 Subjective EGD ulcer and gastritis. Patient had epi injection for the exposed vessel. Review of Systems 10-point ROS is otherwise unremarkable Physical Examination - Vital Signs Reviewed - Physical Exam General: Alert, In no apparent distress, Oriented x3 Respiratory: Clear to auscultation bilaterally, Normal air movement Cardiovascular: Regular rate/rhythm, Normal S1 S2 Gastrointestinal: Normal bowel sounds, Soft and benign, Non-distended, No rebound, No guarding, Tenderness Musculoskeletal: No clubbing, No swelling, No tenderness Neurological: Sensation intact, Cranial nerves 3-12 intact Assessment & Plan - Problems (Diagnosis) (1) Lower GI bleed Current Visit: Yes Status: Acute (2) Anemia due to acute blood loss Current Visit: Yes Status: Acute - Plan Continue with plan of care as mentioned below: 1. Continue with IV hydration and PPI drip; changed to IV Protonix twice daily in the morning 2. Continue with IV antibiotics 3. Continue with pain control 4. Started on clear liquid diet; advance as tolerated 5. GI consultation appreciated; status post EGD 6. Serial H&H, 7. GI and DVT prophylaxis
[2021-12-11] MEDS: NA CHLORIDE 0.9% 1,000 ML IV SCH (00:38)
[2021-12-11 01:13] VITALS: O2SAT 97
[2021-12-11] MEDS: PANTOPRAZOLE INJ 80 MG in NA CHLORIDE 0.9% 250 ML IV SCH ×2 (04:00→07:15)
[2021-12-11 06:32] LABS: Absolute Lymphocytes (CBC) 1.7 K/uL (0.7-4.9); Hematocrit 28.8 % (39.6-49.0); Lymphocytes % 13.7 % (15.3-44.8); MPV 8.6 fL (7.6-11.3); RBC Red Blood Cell Count 3.64 M/uL (4.33-5.43)
[2021-12-11 06:45] LABS: Potassium 3.7 mmol/L (3.5-5.1)
[2021-12-11 08:20] VITALS: BP 126/62; TEMP 98.2
[2021-12-11] MEDS: lisinopriL 20 MG TAB PO SCH (08:39)
[2021-12-11] MEDS: carvediloL 25 MG TAB PO SCH (08:39)
[2021-12-11] MEDS ORDERED: AMLODIPINE 10 MG TAB PO SCH (09:00)
[2021-12-11] MEDS ORDERED: allopurinoL 300 MG TAB PO SCH (09:00)
[2021-12-11] MEDS ORDERED: SOD FERRIC GLUC COMPLX/SUCROSE 125 MG in NA CHLORIDE 0.9% 100 ML IV SCH (09:00)
[2021-12-11] MEDS ORDERED: Dapagliflozin Propanediol [Farxiga] 10 MG Tablet PO SCH (09:00)
--- NOTE | 2021-12-11 13:17 | P.PN ---
Subjective Date of Service: 12/11/21 Chief Complaint: Gastrointestinal bleeding, melena, anemia, DU Subjective: Improving (Tolerating p.o. diet. Hgb stable 8.8 to 8.5 since yesterday. No GI bleeding noted.) Review of Systems Unremarkable Physical Examination - Vital Signs Temperature: 98.2 F Blood Pressure: 126/62 Pulse: 74 Respirations: 20 Pulse Ox (%): 97 - Physical Exam General: Alert, In no apparent distress, Oriented x3, Cooperative - Studies Medications List Reviewed: Yes Assessment And Plan - Current Problems (Diagnosis) (1) Melena Status: Acute (2) Duodenal ulcer Status: Acute (3) Obesity Status: Acute (4) Anemia due to acute blood loss Status: Acute - Plan REC: 1) continue PPI therapy. Send home on PPI bid and Carafate 2) EGD in 3 months (PUD bleed at [facility] in ~ 2001 3) [place] to GI soft diet 4) GI clinic f/u
--- NOTE | 2021-12-15 03:08 | P.DS ---
Discharge Date: 12/11/21 Disposition: ROUTINE DISCHARGE Discharge Condition: GOOD Reason for Admission: Gastrointestinal bleeding, melena, anemia, DU - Problems (1) Lower GI bleed Status: Acute (2) Anemia due to acute blood loss Status: Acute Brief History of Present Illness: Patient is a 51-year-old gentleman who came to the hospital with GI bleeding. Patient has been taking a lot of ibuprofen for low back pain. Patient stated that he took about 60 over the last month. His back pain has improved so he was not taking as many. But he was not feeling really well over the last few days. Patient had melanotic stool. Patient decided to come into the emergency room for further evaluation. Patient's hemoglobin was 7.6. Patient was slightly hypotensive with a blood pressure of 100/60. Patient was given 2 units of packed red blood cells. Patient will be admitted for further treatment. Hospital Course: Patient is clinically doing well. Patient is no longer having any bleeding. Hemoglobin is stable. At this time, patient is stable for discharge home. Vital Signs/Physical Exam: Temp Pulse Resp BP Pulse Ox 98.2 F 74 20 126/62 97 12/11/21 13:17 12/11/21 13:17 12/11/21 13:17 12/11/21 13:17 12/11/21 13:17 General: Alert, In no apparent distress, Oriented x3 Laboratory Data at Discharge: WBC 12.70 K/uL (4.3-10.9) H 12/11/21 06:09 Hgb 8.5 g/dL (13.6-17.9) L 12/11/21 06:09 Hct 28.8 % (39.6-49.0) L 12/11/21 06:09 Plt Count 272 K/uL (152-406) 12/11/21 06:09 PT 11.6 SECONDS (9.5-12.5) 12/09/21 04:13 INR 1.01 12/09/21 04:13 APTT 28.7 SECONDS (24.3-36.9) 12/09/21 04:13 Sodium 138 mmol/L (136-145) 12/11/21 06:09 Potassium 3.7 mmol/L (3.5-5.1) 12/11/21 06:09 BUN 6 mg/dL (7-18) L 12/11/21 06:09 Creatinine 1.06 mg/dL (0.55-1.3) 12/11/21 06:09 Glucose 123 mg/dL (74-106) H 12/11/21 06:09 Magnesium 2.1 mg/dL (1.8-2.4) 12/10/21 05:50 Total Bilirubin 0.7 mg/dL (0.2-1.0) 12/10/21 05:50 AST 10 U/L (15-37) L 12/10/21 05:50 ALT 18 U/L (12-78) 12/10/21 05:50 Alkaline Phosphatase 85 U/L (45-117) 12/10/21 05:50 Lipase 346 U/L (73-393) 12/08/21 12:35 Home Medications: Amlodipine [Norvasc*] 10 mg PO DAILY 03/18/19 Atorvastatin Calcium [Lipitor] 40 mg PO BEDTIME 03/18/19 Metformin HCl [Glucophage*] 500 mg PO BID 03/18/19 allopurinoL [Zyloprim*] 300 mg PO DAILY 03/18/19 Carvedilol [Coreg] 25 mg PO BID 12/09/21 Dapagliflozin Propanediol [Farxiga] 10 mg PO DAILY 12/09/21 Lisinopril [Zestril] 20 mg PO BID 12/09/21 Pantoprazole [Protonix Tab] 40 mg PO BID #60 tab 12/11/21 Sucralfate [Carafate -Tab] 1 gm PO ACHS #120 tab 12/11/21 New Medications: Sucralfate [Carafate -Tab] 1 gm PO ACHS #120 tab Pantoprazole [Protonix Tab] 40 mg PO BID #60 tab Physician Discharge Instructions: -DC IV and DC home -Follow-up with PCP in 1 to 2 weeks -Follow-up with Gastroenterology, Dr. Villagomez, in 1 to 2 weeks -Please call Dr. Davis at [phone] if any questions regarding hospital stay -Please call nursing station at [phone] if any nursing or medication questions -Return to the emergency room if symptoms worsen Diet: AHA Activity: Fall precautions Followup: NONE,NONE [Primary Care Provider] - Rashad Villagomez MD [ASSOCIATE-ACTIVE - CAN ADMIT] - Time spent managing pt's care (in minutes): 35
== END 2021-12-11 12:30 | disposition home or self-care (01) | DRG 378 ==
LOC: ER 11:29 → ERHOLD 17:33 → 2ND 12-09 02:10
PROVIDERS: ADMIT Hospitalist; ATTEND Hospitalist
PROC: 30233N1 Transfusion of Nonautologous Red Blood Cells into Peripheral Vein, Percutaneous Approach (ICD-10-PCS; 2021-12-08)
PROC: 3E0G8GC Introduction of Other Therapeutic Substance into Upper GI, Via Natural or Artificial Opening Endoscopic (ICD-10-PCS; 2021-12-10)
PROC: 0DB78ZX Excision of Stomach, Pylorus, Via Natural or Artificial Opening Endoscopic, Diagnostic (ICD-10-PCS; principal; 2021-12-10 09:45)
DX: K26.0 Acute duodenal ulcer with hemorrhage (principal); Z68.41 Body mass index [BMI] 40.0-44.9, adult; D62 Acute posthemorrhagic anemia; E11.9 Type 2 diabetes mellitus without complications; K29.71 Gastritis, unspecified, with bleeding; I10 Essential (primary) hypertension; E78.5 Hyperlipidemia, unspecified; E66.01 Morbid (severe) obesity due to excess calories; Z79.4 Long term (current) use of insulin; F17.220 Nicotine dependence, chewing tobacco, uncomplicated; Z20.822 Contact with and (suspected) exposure to COVID-19
CPT/HCPCS: 36415; 74177; 80048; 80053; 80076; 82272; 82607; 82746; 82947; 83540; 83690; 83735; 85014; 85018; 85025; 85044; 85610; 85730; 86850; 86900; 86901; 88305; 88312; 96365; 96366; 99285; C9113; J0171; J2354; J2704; J2916; J7030; J7040; J7050; P9016; Q9967; U0003

== ENCOUNTER 2022-06-13 03:30 | Observation (INO) | payer BC ==
[2022-06-13 04:11] LABS: Hematocrit 36.4 % (39.6-49.0); MPV 8.6 fL (7.6-11.3); RBC Red Blood Cell Count 5.27 M/uL (4.33-5.43)
[2022-06-13 04:33] LABS: Anisocytosis 1+; Blood Morphology Comment NOTED (NOT SEEN); Hypochromasia 1+; Platelet Estimate ADEQ; Platelets, Giant FEW; Polychromasia SLIGHT; White Blood Cell Scan OK (OK)
[2022-06-13 04:34] LABS: Ovalocytes 1+
[2022-06-13] MEDS ORDERED: MORPHINE 4 MG/ML SYR ONE (05:40)
[2022-06-13] MEDS ORDERED: ONDANSETRON 4 MG/2 ML VIAL ONE (05:40)
[2022-06-13 05:48] LABS: Protime INR 0.94
[2022-06-13] MEDS ORDERED: ASPIRIN 325 MG TAB ONE (06:22)
[2022-06-13] MEDS ORDERED: ACETAMINOPHEN 500 MG TAB PO PRN (06:59)
--- NOTE | 2022-06-13 07:00 | ER ---
Nurse's Notes [facility] Name: Russel Sotelo Age: 52 yrs Sex: Male : 1970 Arrival Date: 06/13/2022 Time: 03:34 Bed 7 Private MD: Diagnosis: Chest pain, unspecified Presentation: 06/13 03:36 Chief complaint: Patient states: "I just feel awful. I has been like this the last two tw5 days. My chest is sore and it feels like my heart is swollen.". Coronavirus screen: Vaccine status: Patient reports receiving the 2nd dose of the covid vaccine. J and J Pzier booster. Ebola Screen: Patient negative for fever greater than or equal to 101.5 degrees Fahrenheit, and additional compatible Ebola Virus Disease symptoms Patient denies exposure to infectious person. Patient denies travel to an Ebola-affected area in the 21 days before illness onset. Initial Sepsis Screen: Does the patient meet any 2 criteria? HR > 90 bpm. Does the patient have a suspected source of infection? No. Patient's initial sepsis screen is negative. Risk Assessment: Do you want to hurt yourself or someone else? Patient reports no desire to harm self or others. Onset of symptoms was June 11, 2022. 03:36 Method Of Arrival: Ambulatory tw5 03:36 Acuity: TRUE 2 tw5 06:54 Note PT RESTING SLEEP APNEA NOTED o2 SAT 84% PLACED ON O2 AT 2L NC. kl Triage Assessment: 03:41 General: Appears obese, Behavior is calm, cooperative, appropriate for age. Pain: tw5 Complains of pain in chest Pain currently is 7 out of 10 on a pain scale. Quality of pain is described as heavy. Cardiovascular: Capillary refill < 3 seconds. Historical: - Allergies: 03:41 No Known Allergies; tw5 - PMHx: 03:41 Hypertensive disorder; Hypercholesterolemia; tw5 - Immunization history:: Flu vaccine is not up to date. - Social history:: Smoking status: Patient denies any tobacco usage or history of. Screenin:54 Abuse screen: Denies threats or abuse. Nutritional screening: No deficits noted. kl Tuberculosis screening: No symptoms or risk factors identified. Fall Risk None identified. Assessment: 05:30 General: Appears uncomfortable, obese, Behavior is calm, cooperative. Pain: Denies kl pain. Neuro: No deficits noted. [place]nor Agitation-Sedation Scale (RASS): 0 - Alert and Calm. Cardiovascular: No deficits noted. Heart tones S1 S2 Rhythm is regular. Respiratory: Airway is patent Trachea midline Respiratory effort is shallow, Breath sounds are clear bilaterally. GI: No deficits noted. No signs and/or symptoms were reported involving the gastrointestinal system. : No deficits noted. No signs and/or symptoms were reported regarding the genitourinary system. EENT: No deficits noted. No signs and/or symptoms were reported regarding the EENT system. 07:20 Reassessment: Patient is alert, oriented x 3, equal unlabored respirations, skin kl warm/dry/pink. Patient denies pain at this time. Patient states symptoms have improved. Pain: Denies pain. Vital Signs: 03:36 BP 156 / 85; Pulse 103; Resp 20; Temp 98.9; Pulse Ox 93% on R/A; Weight 140.16 kg; tw5 Height 5 ft. 9 in. (175.26 cm); Pain 7/10; 06:51 BP 116 / 78; Pulse 84; Resp 16; Pulse Ox 94% on 2 lpm NC; kl 07:30 BP 119 / 64; Pulse 86; Resp 17; Pulse Ox 97% ; Pain 0/10; kl 03:36 Body Mass Index 45.63 (140.16 kg, 175.26 cm) tw5 ED Course: 03:34 Patient arrived in ED. ja2 03:41 Triage completed. tw5 03:41 Arm band placed on. EKG completed in triage. Results shown to MD. EKG done per 5 protocol. Performed by ED Staff. Shown to ED physician. Labs ordered per protocol. Drawn by ED staff. 03:43 Patient notified of wait time. tw5 03:57 Initial lab(s) drawn, by nm, sent to lab. EKG done, by ED staff, reviewed by Fahad Jane MD. Inserted saline lock: 20 gauge in left antecubital area, using aseptic technique. Blood collected. 04:24 XRAY Chest (1 view) In Process Unspecified. EDMS 04:50 Basic Metabolic Panel Sent. 5 04:50 Troponin HS Sent. 5 05:00 Fahad Jane MD is Attending Physician. 7 06:59 Lupis Davis MD is Hospitalizing Provider. [facility] 07:30 Placed in gown. Bed in low position. Call light in reach. Side rails up X 1. Client kl placed on continuous cardiac and pulse oximetry monitoring. NIBP monitoring applied. meat stuffer on. Pulse ox on. NIBP on. 07:53 Patient maintains SpO2 saturation greater than 95% on room air. Administered Medications: 05:44 Drug: morphine 4 mg Route: IVP; Infused Over: 4 mins; Site: left antecubital; 05:44 Drug: Zofran (Ondansetron) 4 mg Route: IVP; Site: left antecubital; 06:16 Drug: Aspirin 325 mg Route: PO; Medication: 07:53 VIS not applicable for this client. Outcome: 06:59 Decision to Hospitalize by Provider. [facility] 17:43 Patient left the ED. eb Signatures: Dispatcher [employer] EDMS Suzanna Yusuf RN RN kl Martinez, Maria [facility] Rita Trejo Maurice, MD MD [facility] Lisa Johnson Tiffany [facility] Corrections: (The following items were deleted from the chart) 03:42 03:41 PSHx: None; 5 tw5
--- NOTE | 2022-06-13 07:00 | EDPHYS ---
Physician Documentation [facility] Name: Russel Sotelo Age: 52 yrs Sex: Male : 1970 Arrival Date: 06/13/2022 Time: 03:34 Bed 7 Private MD: ED Physician Fahad Jane HPI: 06/13 05:26 This 52 yrs old Black Male presents to ER via Ambulatory with complaints of Chest Pain. mh7 05:26 The patient or guardian reports chest pain that is located primarily in the anterior mh7 chest wall, left. Onset: 2 day(s) ago. 05:26 The pain does not radiate. mh7 05:26 Associated signs and symptoms: Pertinent positives: cough, shortness of breath, mh7 Pertinent negatives: abdominal pain, diaphoresis, dizziness, headache, lower extremity pain, lower extremity swelling, lightheadedness, nausea, near syncope, palpitations, recent travel, syncope, vomiting. The chest pain is described as a heaviness, a pressure. Duration: The patient or guardian reports multiple episodes, that are intermittent, that wax and wane, with no pattern. Modifying factors: The symptoms are alleviated by nothing. the symptoms are aggravated by nothing. Severity of pain: At its worst the pain was moderate yesterday, in the emergency department the pain has improved moderately. Historical: - Allergies: 03:41 No Known Allergies; tw5 - PMHx: 03:41 Hypertensive disorder; Hypercholesterolemia; tw5 - Immunization history:: Flu vaccine is not up to date. - Social history:: Smoking status: Patient denies any tobacco usage or history of. ROS: 05:26 Constitutional: Negative for fever, chills, and weight loss, Eyes: Negative for injury, mh7 pain, redness, and discharge, ENT: Negative for injury, pain, and discharge, Neck: Negative for injury, pain, and swelling, Abdomen/GI: Negative for abdominal pain, nausea, vomiting, diarrhea, and constipation, Back: Negative for injury and pain, : Negative for injury, bleeding, discharge, and swelling, MS/Extremity: Negative for injury and deformity, Skin: Negative for injury, rash, and discoloration, Neuro: Negative for headache, weakness, numbness, tingling, and seizure, Psych: Negative for depression, anxiety, suicide ideation, homicidal ideation, and hallucinations, Allergy/Immunology: Negative for hives, rash, and allergies, Endocrine: Negative for neck swelling, polydipsia, polyuria, polyphagia, and marked weight changes, Hematologic/Lymphatic: Negative for swollen nodes, abnormal bleeding, and unusual bruising. Exam: 05:26 Head/Face: Normocephalic, atraumatic. Eyes: Pupils equal round and reactive to light, mh7 extra-ocular motions intact. Lids and lashes normal. Conjunctiva and sclera are non-icteric and not injected. Cornea within normal limits. Periorbital areas with no swelling, redness, or edema. Neck: Trachea midline, no thyromegaly or masses palpated, and no cervical lymphadenopathy. Supple, full range of motion without nuchal rigidity, or vertebral point tenderness. No Meningismus. Chest/axilla: Normal chest wall appearance and motion. Nontender with no deformity. No lesions are appreciated. Cardiovascular: Regular rate and rhythm with a normal S1 and S2. No gallops, murmurs, or rubs. Normal PMI, no JVD. No pulse deficits. Respiratory: Lungs have equal breath sounds bilaterally, clear to auscultation and percussion. No rales, rhonchi or wheezes noted. No increased work of breathing, no retractions or nasal flaring. Abdomen/GI: Soft, non-tender, with normal bowel sounds. No distension or tympany. No guarding or rebound. No evidence of tenderness throughout. Back: No spinal tenderness. No costovertebral tenderness. Full range of motion. Skin: Warm, dry with normal turgor. Normal color with no rashes, no lesions, and no evidence of cellulitis. MS/ Extremity: Pulses equal, no cyanosis. Neurovascular intact. Full, normal range of motion. Neuro: Awake and alert, GCS 15, oriented to person, place, time, and situation. Cranial nerves II-XII grossly intact. Motor strength 5/5 in all extremities. Sensory grossly intact. Cerebellar exam normal. Normal gait. Psych: Awake, alert, with orientation to person, place and time. Behavior, mood, and affect are within normal limits. 05:26 Constitutional: The patient appears in no acute distress, alert, awake, uncomfortable. Vital Signs: 03:36 BP 156 / 85; Pulse 103; Resp 20; Temp 98.9; Pulse Ox 93% on R/A; Weight 140.16 kg; tw5 Height 5 ft. 9 in. (175.26 cm); Pain 7/10; 06:51 BP 116 / 78; Pulse 84; Resp 16; Pulse Ox 94% on 2 lpm NC; kl 07:30 BP 119 / 64; Pulse 86; Resp 17; Pulse Ox 97% ; Pain 0/10; kl 03:36 Body Mass Index 45.63 (140.16 kg, 175.26 cm) tw5 MDM: 06:57 Differential diagnosis: acute myocardial infarction, acute pericarditis, anxiety, mh7 coronary artery disease chest wall pain, congestive heart failure costochondritis, esophagitis, gastroesophageal reflux disease (GERD), pericarditis, pleurisy. HEART Score: History: Highly Suspicious (2), ECG: Normal (0), Age: > 45 and < 65 years (1), Risk Factors: > or = 3 Risk factors for atherosclerotic disease (2), [Hypercholesterolemia] [Hypertension] [DM] Troponin: < or = 1 x Normal Limit (0), Total Score = 5. The patient was given aspirin in the Emergency Department. Data reviewed: vital signs, nurses notes, old medical records, lab test result(s), cardiac enzymes, CBC, electrolytes, EKG, radiologic studies, plain films. Data interpreted: Pulse oximetry: on room air is 95 %. Interpretation: acceptable. Counseling: I had a detailed discussion with the patient and/or guardian regarding: the historical points, exam findings, and any diagnostic results supporting the discharge/admit diagnosis, lab results, radiology results, the need for further work-up and treatment in the hospital. 06:59 Patient medically screened. [facility] 06/13 03:43 Order name: Basic Metabolic Panel; Complete Time: 05:01 06/13 03:43 Order name: CBC with Diff; Complete Time: 05:01 06/13 03:43 Order name: Troponin HS; Complete Time: 05:01 06/13 04:14 Order name: CBC Smear Scan; Complete Time: 05:01 [facility] 06/13 05:24 Order name: COVID-19 SARS RT PCR (Document "Date of Onset" if Symptomatic) [facility] 06/13 05:24 Order name: Influenza Screen (a \\T\\ B) [facility] 06/13 05:25 Order name: PROBNP; Complete Time: 06:28 [facility] 06/13 05:25 Order name: Protime (+inr); Complete Time: 06:28 [facility] 06/13 05:25 Order name: Ptt, Activated; Complete Time: 06:28 [facility] 06/13 07:04 Order name: Lipid Profile [facility] 06/13 07:04 Order name: Lipid Profile [facility] 06/13 08:02 Order name: Urine Dipstick-Ancillary [facility] 06/13 08:04 Order name: LDL, Direct [facility] 06/13 17:23 Order name: Glucose, Ancillary Testing [facility] 06/13 03:43 Order name: XRAY Chest (1 view) [facility] 06/13 03:43 Order name: EKG; Complete Time: 03:46 5 06/13 03:43 Order name: Cardiac monitoring; Complete Time: 04:50 5 06/13 03:43 Order name: EKG - Nurse/Tech; Complete Time: 04:50 5 06/13 03:43 Order name: IV Saline Lock; Complete Time: 04:50 5 06/13 03:43 Order name: Labs collected and sent; Complete Time: 04:50 tw5 06/13 03:43 Order name: O2 Per Protocol; Complete Time: 04:50 5 06/13 07:04 Order name: CONS Physician Consult [facility] 06/13 07:04 Order name: Heart Healthy [facility] 06/13 07:04 Order name: EKG Electrocardiogram [facility] 06/13 07:04 Order name: EKG Electrocardiogram [facility] 06/13 07:04 Order name: EKG Electrocardiogram [facility] 06/13 07:37 Order name: Diet [address]; Complete Time: 07:38 06/13 03:43 Order name: O2 Sat Monitoring; Complete Time: 04:50 tw5 06/13 04:16 Order name: Labs - recollect needed: green top; Complete Time: 06:17 mw2 Administered Medications: 05:44 Drug: morphine 4 mg Route: IVP; Infused Over: 4 mins; Site: left antecubital; 05:44 Drug: Zofran (Ondansetron) 4 mg Route: IVP; Site: left antecubital; kl 06:16 Drug: Aspirin 325 mg Route: PO; Disposition Summary: 06/13/22 06:59 Hospitalization Ordered Hospitalization Status: Observation [facility] Provider: Lupis Davis Location: Telemetry/MedSurg (observation) mh7 Condition: Stable mh7 Problem: new mh7 Symptoms: have improved mh7 Bed/Room Type: Standard 7 Room Assignment: 216(06/13/22 16:13) dw Diagnosis - Chest pain, unspecified mh7 Forms: - Medication Reconciliation Form mh7 - SBAR form mh7 Signatures: Dispatcher [employer] EDSuzanna Turner RN RN kl Woody, Diana, RN RN dw [place], MyKena 2 Fahad Jane MD MD [place] 5 Sharlene Welch PA PA sb3 Corrections: (The following items were deleted from the chart) 03:42 03:41 PSHx: None; tw5 tw 16:13 06:59 mh7 dw
[2022-06-13 07:51] LABS: HDL Cholesterol 32 mg/dL (40-60)
[2022-06-13 08:01] LABS: Urine Blood Negative (Negative); Urine Glucose 3+ (Negative); Urine Protein Trace (Negative); Urine pH 5.5 (5.0-7.0)
[2022-06-13 08:03] LABS: LDL, Direct 102 mg/dL (100-129)
[2022-06-13] MEDS: ENOXAPARIN 40 MG/0.4 ML SQ SCH (09:00)
[2022-06-13] MEDS: ASPIRIN EC 81 MG TAB PO SCH (09:00)
[2022-06-13] MEDS: METOPROLOL TAR 25 MG TAB PO SCH ×2 (09:00→20:57)
--- NOTE | 2022-06-13 15:03 | P.HP ---
Certification for Inpatient Patient admitted to: Observation With expected LOS: <2 Midnights Patient will require the following post-hospital care: None Practitioner: I am a practitioner with admitting privileges, knowledge of patient current condition, hospital course, and medical plan of care. Services: Services provided to patient in accordance with Admission requirements found in Title 42 Section 412.3 of the Code of Federal Regulations Patient History Date of Service: 06/13/22 Reason for admission: CP r/o ACS; CHF History of Present Illness: Pt is a 52yo gentleman who came to the hospital with chest discomfort. Patient was also feeling fatigued and short of breath. Not been feeling well for the last few days and he decided to come into the hospital for further evaluation. In the emergency room he had serial troponin which was negative. BNP was negative. He was admitted to the hospital for diuresing and trending troponin. He has risk factors including being morbidly obese. His BMI is greater than 45 and his weight is 309. He has a history of hypertension, diabetes, dyslipidemia. He will be admitted to be ruled out for acute coronary syndrome. Allergies No Known Allergies Allergy (Unverified 06/26/18 17:56) Home Medications: Amlodipine [Norvasc*] 10 mg PO DAILY 03/18/19 Atorvastatin Calcium [Lipitor] 40 mg PO BEDTIME 03/18/19 Metformin HCl [Glucophage*] 500 mg PO BID 03/18/19 allopurinoL [Zyloprim*] 300 mg PO DAILY 03/18/19 Dapagliflozin Propanediol [Farxiga] 10 mg PO DAILY 12/09/21 Dulaglutide [Trulicity] 1.5 mg SQ SEECOM 06/13/22 - Past Medical/Surgical History Diabetic: Yes -: Hypertension -: Type 2 diabetes -: Dyslipidemia Past Surgical History: Patient denies surgical history - Family History Mother Medical History: Heart disease, Hypertension, Diabetes, Kidney disease Notes: mother on dialysis - Social History Alcohol use: No CD- Drugs: No Caffeine use: Yes Review of Systems 10-point ROS is otherwise unremarkable Physical Examination - Vital Signs Temperature: 98 F Blood Pressure: 140/80 Pulse: 88 Respirations: 18 Pulse Ox (%): 95 - Physical Exam General: Alert, In no apparent distress, Oriented x3 HEENT: Atraumatic, PERRLA, Mucous membr. moist/pink, EOMI, Sclerae nonicteric Neck: Supple, 2+ carotid pulse no bruit, No LAD, Without JVD or thyroid abnormality Respiratory: Clear to auscultation bilaterally, Normal air movement Cardiovascular: Regular rate/rhythm, Normal S1 S2, No murmurs Gastrointestinal: Normal bowel sounds, Soft and benign, Non-distended, No tenderness Musculoskeletal: No clubbing, No swelling, No tenderness Integumentary: No rashes Neurological: Normal gait, Normal speech, Normal strength at 5/5 x4 extr, Normal tone, Sensation intact, Cranial nerves 3-12 intact, Normal affect Lymphatics: No axilla or inguinal lymphadenopathy - Studies Laboratory Data (last 24 hrs) 06/13/22 04:58: Triglycerides 561 H, Cholesterol 169, LDL Cholesterol Direct 102, HDL Cholesterol 32 L, Cholesterol/HDL Ratio 5.28 06/13/22 04:05: Sodium 135 L, Potassium 4.0, BUN 11, Creatinine 1.43 H, Glucose 394 H 06/13/22 03:53: PT 10.3, INR 0.94, APTT 32.2 06/13/22 03:53: WBC 9.9, Hgb 11.0 L, Hct 36.4 L, Plt Count 285 Microbiology Data (last 24 hrs): 06/13/22 06:32 Nasopharnyx Influenza Type A Antigen Screen - Final 06/13/22 06:32 Nasopharnyx Influenza Type B Antigen Screen - Final Assessment & Plan - Problems (Diagnosis) (1) Chest pain Current Visit: Yes Status: Acute (2) CHF (congestive heart failure) Current Visit: Yes Status: Acute Qualifiers: Heart failure type: diastolic Heart failure chronicity: acute Qualified Code(s): I50.31 - Acute diastolic (congestive) heart failure - Plan Plan: 1. Serial troponins and EKG 2. Strict blood pressure and blood sugar control 3. Cardiology consultation 4. Monitor volume status 5. GI/DVT prophylaxis Discharge Plan: Home - Advance Directives Does patient have a Living Will: No Does patient have a Durable POA for Healthcare: No - Code Status/Comfort Care Code Status Assessed: Yes Code Status: Full Code Critical Care: No Time Spent Managing PTS Care (In Minutes): 45
[2022-06-13] MEDS ORDERED: ASPIRIN EC 81 MG TAB PO ONE (16:55)
[2022-06-13] MEDS ORDERED: ENOXAPARIN 40 MG/0.4 ML SQ ONE (16:56)
[2022-06-13] MEDS ORDERED: D50W 25 GM/50 ML SYRINGE IV PRN (17:54)
[2022-06-13] MEDS ORDERED: GLUCAGON 1 MG/VIAL IM PRN (17:54)
[2022-06-13] MEDS ORDERED: D10W 125 ML IV PRN (18:17)
--- NOTE | 2022-06-13 20:41 | RAD REPORT ---
EXAM DESCRIPTION: RAD - Chest Single View - 06/13/2022 4:21 am CLINICAL HISTORY: The patient is 52 years old and is Male; CHEST PAIN TECHNIQUE: Frontal view of the chest. COMPARISON: No relevant prior studies available. FINDINGS: Lungs: Mildly prominent interstitial markings. No consolidation. Pleural space: Unremarkable. No pneumothorax. Heart: Unremarkable. Mediastinum: Unremarkable. Bones/joints: Hyperdensities overlying the left glenohumeral joint. IMPRESSION: Mildly prominent interstitial markings. No consolidation. Electronically signed by: Steve Chopra MD 06/13/2022 4:41 AM CDT Due to temporary technical issues with the PACS/Fluency reporting system, reports are being signed by the in house radiologists without review as a courtesy to insure prompt reporting. The interpreting radiologist is fully responsible for the content of the report.
--- NOTE | 2022-06-13 20:54 | CON ---
Date of Consultation: 06/13/2022 Reason For Consultation: Heart failure. History Of Present Illness: This is a middle-aged male, history of hypertension, diabetes, dyslipide sayra, presented with shortness of breath, orthopnea, lower extremity edema, and some chest pain that i s not particularly related to exertion. At the present time, he is chest pain-free, but has signific ant lower extremity edema and shortness of breath. Past Medical History: As outlined above in the HPI. Medications: Refer reconciliation sheet for detailed list. Allergies: NO KNOWN DRUG ALLERGIES. Family History: History of hypertension and diabetes in the family. Social History: He does not smoke or drink or use any drugs. Review of Systems: All systems reviewed and are negative except for mentioned in HPI. Physical Examination: Vital Signs: Reviewed. Head and Neck: Pupils are equal and reactive to light. Intact eye movements. Positive JVD elevatio n. No cervical lymphadenopathy. Neck: Supple. Thyroid is not enlarged. Lungs: Clear to auscultation bilaterally. Decreased breathing sounds diffusely. No accessory muscl e use or muscle retraction. Heart: Regular rate and rhythm. No extra sounds. Abdomen: Soft, nontender. Bowel sounds positive. No organomegaly. No masses or hernia. No rigidi ty or rebound. Extremities: No clubbing or cyanosis. Intact pulses. There is 3+ edema bilaterally. Neurologic: Alert, awake, and oriented x3. No acute focal deficits appreciated. Lymph Nodes: No cervical or axillary lymphadenopathy. Investigations: Creatinine is 1.43. Troponin is negative. NT-proBNP is 14. Hemoglobin is 11.1 and white blood cell count is 9.9. Assessment And Recommendations: 1.Acute fluid retention and congestive heart failure. Recommend diuresis, Lasix IV 60 mg q.12 hours . Monitor BUN, creatinine, electrolytes, and please trend two more troponins and we will plan for an echocardiogram once feasible. 2.Hypertension. Resume home medications. Adjust as needed. 3.Chronic kidney disease. Probably this should improve with diuresis as the patient appears to be s ignificantly fluid overloaded. SR/MODL Voice ID: [id number] Report ID: [id number]
[2022-06-13] MEDS: METFORMIN HCL 500 MG TAB PO SCH (20:57)
[2022-06-13] MEDS: INSULIN -REGULAR HUMAN 50 UNIT/0.5 ML ML SQ SCH (20:58)
[2022-06-13] MEDS ORDERED: ATORVASTATIN 40 MG TAB PO SCH (21:00)
[2022-06-14] MEDS: INSULIN -REGULAR HUMAN 50 UNIT/0.5 ML ML SQ SCH ×2 (07:30→11:30)
[2022-06-14] MEDS ORDERED: TRULICITY 1.5 MG/0.5 ML SQ SCH (09:00)
[2022-06-14] MEDS ORDERED: allopurinoL 300 MG TAB PO SCH (09:00)
[2022-06-14] MEDS ORDERED: AMLODIPINE 10 MG TAB PO SCH (09:00)
[2022-06-14] MEDS: ENOXAPARIN 40 MG/0.4 ML SQ SCH (10:18)
[2022-06-14] MEDS: METFORMIN HCL 500 MG TAB PO SCH (10:19)
[2022-06-14] MEDS: METOPROLOL TAR 25 MG TAB PO SCH (10:19)
[2022-06-14] MEDS: ASPIRIN EC 81 MG TAB PO SCH (10:19)
[2022-06-14 11:56] LABS: Specific Gravity > 1.030 (1.005-1.030); Urine Bilirubin NEGATIVE (Negative); Urine Clarity Clear (Clear); Urine Color Yellow (Yellow); Urine Glucose 2+ (Negative)
[2022-06-14 11:57] LABS: Urine Bacteria None Seen /HPF (<20); Urine Blood Negative (Negative); Urine Protein 1+ (Negative); Urine RBC None Seen /HPF (None Seen); Urine Urobilinogen 0.2 mg/dL (0.2-1.0); Urine pH 5.5 (5.0-7.0)
[2022-06-14 12:27] VITALS: O2SAT 92
[2022-06-14 12:47] VITALS: BP 140/80; TEMP 98
[2022-06-14 13:06] LABS: Absolute Lymphocytes (CBC) 2.1 K/uL (0.7-4.9); Hematocrit 36.9 % (39.6-49.0); Lymphocytes % 20.1 % (15.3-44.8); MPV 8.5 fL (7.6-11.3); RBC Red Blood Cell Count 5.32 M/uL (4.33-5.43)
[2022-06-14 13:30] LABS: Potassium 4.4 mmol/L (3.5-5.1)
[2022-06-14 13:41] LABS: MCV 69.3 fL (80-100)
[2022-06-14 15:05] VITALS: BMI 45.6
--- NOTE | 2022-06-14 17:12 | PN ---
Date of Progress Note: 06/14/2022 Subjective: Seen by bedside. He is doing clinically much better. Shortness of breath has improved. Review of Systems: No chest pain or shortness of breath at rest. No nausea, vomiting, or diarrhea. No abdominal pain. All other systems reviewed and are negative. Physical Examination: Vital Signs: Reviewed. Head and Neck: Pupils are equal, reactive to light. Intact eye movements. No JVD. No cervical lym phadenopathy. Neck is supple. Thyroid is not enlarged. Lungs: Decreased breathing sounds bilaterally. No accessory muscle use or muscle retraction. Heart: Regular rate and rhythm. No extra sounds. Abdomen: Soft, nontender. Bowel sounds positive. No organomegaly. No masses or hernia. No rigidi ty or rebound. Extremities: No clubbing or cyanosis. Intact pulses. Skin: No rash. Neurologic: Alert, awake. No acute focal deficits appreciated. Lymph Nodes: No cervical or axillary lymphadenopathy. Investigations: Troponins are negative. Assessment And Recommendations: 1.Shortness of breath with lower extremity edema and orthopnea, doing better. Recommend IV diuresis and monitor BUN, creatinine, electrolytes, and please obtain echocardiogram tomorrow. 2.Chest pain. Cardiac enzymes have been negative, so we will plan outpatient exercise stress test to further evaluate. 3.Hypertension. Blood pressure is acceptable. SR/MODL Voice ID: [id number] Report ID: [id number]
--- NOTE | 2022-06-15 12:26 | EKG ---
Test Date: 2022-06-13 Test Time: 03:41:51 Ms Access Database Developer: SOLEDAD MEASUREMENT RESULTS: Intervals: Rate: 99 ID: [id number] QRSD: 86 QT: 368 QTc: 472 [place]: P: -16 ID: [id number] QRS: -23 T: 1 INTERPRETIVE STATEMENTS: Normal sinus rhythm Normal ECG Compared to ECG 08/02/2020 10:04:29 No significant changes Electronically Signed On 06-15-22 12:23:57 CDT by Tae Butler
== END 2022-06-14 17:39 | disposition home or self-care (01) ==
LOC: ER 03:30 → ERHOLD 07:00 → 2ND 17:10
PROVIDERS: ADMIT Hospitalist; ATTEND Hospitalist
DX: I11.0 Hypertensive heart disease with heart failure (principal); I50.31 Acute diastolic (congestive) heart failure; R07.9 Chest pain, unspecified; E11.9 Type 2 diabetes mellitus without complications; E78.5 Hyperlipidemia, unspecified; E66.01 Morbid (severe) obesity due to excess calories; Z68.42 Body mass index [BMI] 45.0-49.9, adult; Z79.84 Long term (current) use of oral hypoglycemic drugs; Z79.899 Other long term (current) drug therapy; Z20.822 Contact with and (suspected) exposure to COVID-19; Z82.49 Family history of ischemic heart disease and other diseases of the circulatory system; Z83.3 Family history of diabetes mellitus; Z84.1 Family history of disorders of kidney and ureter
CPT/HCPCS: 93005; 85025 ×2; 81001; 80048 ×2; 36415 ×2; 83721; 85610; 80061; 82947 ×5; 85730; 81003; 84484 ×2; 83880 ×2; 87804 ×2; 71045; 96375; 96374; 99285; U0003; J1815 ×3; J1650 ×2; J2405; G0378 ×3

== ENCOUNTER 2022-11-10 16:56 | Emergency (ER) | payer BC ==
--- OUTSIDE RECORDS SUMMARY | 2022-11-10 17:13 | XMS REPORT | Continuity of Care Document ---
:1970 Author Organization [facility] t Address [address] [place] [address] Care Team Providers Name Role Phone Amairani Steward Primary Care Physician Jan Rodriges Attending Clinician Unavailable Amairani Steward Attending Clinician Unavailable Doctor Unassigned, [place] Attending Clinician Unavailable Ember Mena MD Attending Clinician EMBER MENA Attending Clinician Unavailable EMBRE MENA Attending Clinician Unavailable 1, [facility] Attending Clinician Unavailable Only, [facility] Test Attending Clinician Unavailable Steve Grande MD Attending Clinician [facility] Attending Clinician Unavailable Milagro Jeong MD Attending Clinician MILAGRO JEONG Attending Clinician Unavailable Yuriy Aguilar Attending Clinician Donnie Olson RN Attending Clinician Unavailable AL BLOCK Attending Clinician Unavailable AL BLOCK Admitting Clinician Unavailable Payers Payer Name Policy Type Policy Number Effective Date Expiration Date S ource Problems Condition Condition Condition Status Onset Resolution Last Treating Co mments Source Name Details Category Date Date Treatment Clinician Date NSVT NSVT Disease Active [facility] (nonsustai (nonsustai 9-14 it y of olga olga 00:00: [place] ventricula ventricula 00 Me dical r r Branch tachycardi tachycardi a) a) Hypertensi Hypertensi Disease Active U nivers ve [place] -13 [place] Other Other Disease Active [facility] hyperlipid hyperlipid 07-28 it y of emia emia 00:00: [place] 00 [facility] Type 2 Type 2 Disease Active Univers diabetes diabetes 07-28 ity of mellitus mellitus 00:00: [place] without without 00 Medical complicati complicati Br anch on, on, without without long-term long-term current current use of use of insulin insulin Acute Acute Disease Active [facility] diastolic diastolic 07-28 [place] congest[place] heart 00 Medical failure failure Branch Morbid Morbid Disease Active [facility] obesity obesity -12 [place] with body [place] index 00 [place] dical of of Branch 40.0-49.9 40.0-49.9 Hypoxia Hypoxia Disease Active Univers 912 ity of 00:00: [place] 00 Medical [facility] Morbid Morbid Disease Active [facility] obesity obesity -12 [place] body [place] index 00 [place] dical of of Branch 40.0-49.9 40.0-49.9 Allergies, Adverse Reactions, Alerts Allergy Allergy Status Severity Reaction(s) Onset Inactive Treating Comm ents Source Name Type Date Date Clinician NO KNOWN Drug Active Univers ALLERGIE Class ity of S [facility] Social History Social Habit Start Date Stop Date Quantity Comments Source Exposure to Not sure [facility] SARS-CoV-2 [facility] (event) Branch Alcohol intake 2020-10-02 2020-10-02 Ex-drinker [facility] 00:00:00 00:00:00 (finding) [facility] Tobacco use and 2020-07-27 2020-07-27 Smokeless tobacco Un iversity of exposure 00:00:00 00:00:00 non-user [facility] Sex Ass[birth year] At [birth year] Univers[facility] of 00:00:00 00:00:00 [facility] Smoking Status Start Date Stop Date Source Never smoked tobacco [facility] [place] Medications Ordered Filled Start Stop Current Ordering Indication Dosage Frequency Signature Comments Components Source Medication Medication Date Date Medication? Clinician (SIG) Name Name TAKE 1 No TABLET BY 9-23 MOUTH TWICE 00:00: A DAY 00 TAKE 1 2022-0 No TABLET BY 9-23 MOUTH TWICE 00:00: A DAY 00 TAKE 1 2022-0 No TABLET BY 9-23 MOUTH TWICE 00:: A DAY 00 TAKE 1 2022-0 No TABLET BY 9-23 MOUTH TWICE 00:: A DAY 00 TAKE 1 2022-0 No TABLET BY 9-23 MOUTH TWICE 00:00: A DAY 00 &lt 2022-0 No 20 8- 00:00: 00 &lt 2022-0 No 25 8 00:00: 00 &lt 2022-0 No 15 8 00:00: 00 &lt 2022-0 No 20 8 00:00: 00 &lt 2022-0 No 25 8 00:00: 00 &lt 2022-0 No 15 8 00:00: 00 &lt 2022-0 No 20 8 00:00: 00 &lt 2022-0 No 25 8 00:00: 00 &lt 2022-0 No 15 8 00:00: 00 &lt 2022-0 No 20 8 00:00: 00 &lt 2022-0 No 25 8 00:00: 00 &lt 2022-0 No 15 8 00:00: 00 &lt 2022-0 No 20 8 00:00: 00 &lt 2022-0 No 25 8 00:00: 00 &lt 2022-0 No 15 8 00:00: 00 &lt 2022-0 No 8-11 00:00: 00 &lt 2022-0 No 8-11 00:00: 00 &lt 2022-0 No 8-11 00:00: 00 &lt 2022-0 No 8- 00:00: 00 &lt 2022-0 No 8- 00:00: 00 TAKE 1 2022-0 No TABLET BY 06-18 MOUTH TWICE 00:00: A DAY 00 Dose 2022-0 No 40 Unknown 06-18 00:00: 00 Dose 2022-0 No Unknown 06-18 00:00: 00 &lt 2022-0 No 20 06-18 00:00: 00 TAKE 1 2022-0 No TABLET BY - MOUTH EVERY 00:00: DAY 00 TAKE 1 2022-0 No TABLET BY 8-04 MOUTH TWICE 00:00: A DAY 00 Dose 2022-0 No 40 Unknown 06-18 00:00: 00 Dose 2022-0 No Unknown 06-18 00:00: 00 &lt 2022-0 No 20 06-18 00:00: 00 TAKE 1 2022-0 No TABLET BY 8-04 MOUTH EVERY 00:00: DAY 00 TAKE 1 2022-0 No TABLET BY 8-04 MOUTH TWICE 00:00: A DAY 00 Dose 2022-0 No 40 Unknown 06-18 00:00: 00 Dose 2022-0 No Unknown 06-18 00:00: 00 &lt 2022-0 No 20 06-18 00:00: 00 TAKE 1 2022-0 No TABLET BY 8-04 MOUTH EVERY 00:00: DAY 00 TAKE 1 2022-0 No TABLET BY 8-04 MOUTH TWICE 00:00: A DAY 00 Dose 2022-0 No 40 Unknown 06-18 00:00: 00 Dose 2022-0 No Unknown 06-18 00:00: 00 &lt 2022-0 No 20 06-18 00:00: 00 TAKE 1 2022-0 No TABLET BY 8-04 MOUTH EVERY 00:00: DAY 00 TAKE 1 2022-0 No TABLET BY 8-04 MOUTH TWICE 00:00: A DAY 00 Dose 2022-0 No 40 Unknown 06-18 00:00: 00 Dose 2022-0 No Unknown 06-18 00:00: 00 &lt 2022-0 No 20 06-18 00:00: 00 TAKE 1 2022-0 No 10 TABLET BY 8-04 MOUTH EVERY 00:00: DAY 00 TAKE 1 2022-0 No TABLET BY 8-04 MOUTH TWICE 00:00: A DAY 00 Dose 2022-0 No 40 Unknown 06-18 00:00: 00 Dose 2022-0 No Unknown 06-18 00:00: 00 &lt 2022-0 No 20 06-18 00:00: 00 TAKE 1 2022-0 No TABLET BY 8-04 MOUTH EVERY 00:00: DAY 00 &lt 2022-0 No 40 06-08 00:00: 00 &lt 2022-0 No 40 06-08 00:00: 00 &lt 2022-0 No 40 06-08 00:00: 00 &lt 2022-0 No 40 06-08 00:00: 00 &lt 2022-0 No 40 06-08 00:00: 00 &lt 2022-0 No 40 06-08 00:00: 00 TAKE 1 2022-0 No TABLET BY 7-21 MOUTH TWICE 00:00: A DAY 00 &lt 2022-0 No 06-04 00:00: 00 TAKE 1 2022-0 No TABLET BY 7-21 MOUTH TWICE 00:00: A DAY [address] PLACE 1 MG 2022-0 No 15 BELOW THE - SKIN WEEKLY 00:00: 00 &lt 2022-0 No 20 06-04 00:00: 00 Dose 2022-0 No Unknown 06-04 00:00: 00 &lt 2022-0 No 20 06-04 00:00: 00 TAKE 1 2022-0 No 40 CAPSULE BY 7-21 MOUTH DAILY 00:00: DO NOT 00 START UNTIL ALL ANTIBIOTICS ARE FINISHED &lt 2022-0 No 500 06-04 00:00: 00 TAKE 1 2022-0 No 10 TABLET BY 7-21 MOUTH EVERY 00:00: DAY 00 TAKE 1 2022-0 No TABLET BY 7-21 MOUTH TWICE 00:00: A DAY 00 TAKE 1 2022-0 No TABLET BY 7-21 MOUTH TWICE 00:00: A DAY 00 &lt 2022-0 No 06-04 00:00: 00 TAKE 1 2022-0 No TABLET BY 7-21 MOUTH TWICE 00:00: A DAY 00 PLACE 1 MG 2022-0 No 15 BELOW THE - SKIN WEEKLY 00:00: 00 &lt 2022-0 No 20 06-04 00:00: 00 Dose 2022-0 No Unknown 06-04 00:00: 00 &lt 2022-0 No 20 06-04 00:00: 00 TAKE 1 2022-0 No 40 CAPSULE BY 7-21 MOUTH DAILY 00:00: DO NOT 00 START UNTIL ALL ANTIBIOTICS ARE FINISHED &lt 2022-0 No 500 06-04 00:00: 00 TAKE 1 2022-0 No 10 TABLET BY 7-21 MOUTH EVERY 00:00: DAY 00 TAKE 1 2022-0 No TABLET BY 7-21 MOUTH TWICE 00:00: A DAY 00 TAKE 1 2022-0 No TABLET BY 7-21 MOUTH TWICE 00:00: A DAY 00 &lt 2022-0 No 06-04 00:00: 00 TAKE 1 2022-0 No TABLET BY 7-21 MOUTH TWICE 00:00: A DAY 00 PLACE 1 MG 2022-0 No 15 BELOW THE 7-21 SKIN WEEKLY 00:00: 00 &lt 2022-0 No 20 06-04 00:00: 00 Dose 2022-0 No Unknown 06-04 00:00: 00 &lt 2022-0 No 20 06-04 00:00: 00 TAKE 1 2022-0 No 40 CAPSULE BY 7-21 MOUTH DAILY 00:00: DO NOT 00 START UNTIL ALL ANTIBIOTICS ARE FINISHED &lt 2022-0 No 500 06-04 00:00: 00 TAKE 1 2022-0 No 10 TABLET BY 7-21 MOUTH EVERY 00:00: DAY 00 TAKE 1 2022-0 No TABLET BY 7-21 MOUTH TWICE 00:00: A DAY 00 TAKE 1 2022-0 No TABLET BY 7-21 MOUTH TWICE 00:00: A DAY 00 &lt 2022-0 No 06-04 00:00: 00 TAKE 1 2022-0 No TABLET BY 7-21 MOUTH TWICE 00:00: A DAY 00 PLACE 1 MG 2022-0 No 15 BELOW THE - SKIN WEEKLY 00:00: 00 &lt 2022-0 No 20 06-04 00:00: 00 Dose 2022-0 No Unknown 06-04 00:00: 00 &lt 2022-0 No 20 06-04 00:00: 00 TAKE 1 2022-0 No 40 CAPSULE BY 7-21 MOUTH DAILY 00:00: DO NOT 00 START UNTIL ALL ANTIBIOTICS ARE FINISHED &lt 2022-0 No 500 06-04 00:00: 00 TAKE 1 2022-0 No 10 TABLET BY 7-21 MOUTH EVERY 00:00: DAY 00 TAKE 1 2022-0 No TABLET BY 7-21 MOUTH TWICE 00:00: A DAY 00 TAKE 1 2022-0 No TABLET BY 7-21 MOUTH TWICE 00:00: A DAY 00 &lt 2022-0 No 06-04 00:00: 00 TAKE 1 2022-0 No TABLET BY 7-21 MOUTH TWICE 00:00: A DAY 00 PLACE 1 MG 2022-0 No 15 BELOW THE 7-21 SKIN WEEKLY 00:00: 00 &lt 2022-0 No 20 06-04 00:00: 00 Dose 2022-0 No Unknown 06-04 00:00: 00 &lt 2022-0 No 20 06-04 00:00: 00 TAKE 1 2022-0 No 40 CAPSULE BY 7-21 MOUTH DAILY 00:00: DO NOT 00 START UNTIL ALL ANTIBIOTICS ARE FINISHED &lt 2022-0 No 500 06-04 00:00: 00 TAKE 1 2022-0 No 10 TABLET BY 7-21 MOUTH EVERY 00:00: DAY 00 TAKE 1 2022-0 No TABLET BY 7-21 MOUTH TWICE 00:00: A DAY 00 TAKE 1 2022-0 No TABLET BY 7-21 MOUTH TWICE 00:00: A DAY 00 &lt 2022-0 No 06-04 00:00: 00 TAKE 1 2022-0 No TABLET BY 7-21 MOUTH TWICE 00:00: A DAY 00 PLACE 1 MG 2022-0 No 15 BELOW THE 7-21 SKIN WEEKLY 00:00: 00 &lt 2022-0 No 20 06-04 00:00: 00 Dose 2022-0 No Unknown 06-04 00:00: 00 &lt 2022-0 No 20 06-04 00:00: 00 TAKE 1 2022-0 No 40 CAPSULE BY 7-21 MOUTH DAILY 00:00: DO NOT 00 START UNTIL ALL ANTIBIOTICS ARE FINISHED &lt 2022-0 No 500 06-04 00:00: 00 TAKE 1 2022-0 No 10 TABLET BY 7-21 MOUTH EVERY 00:00: DAY 00 TAKE 1 2022-0 No TABLET BY 7-21 MOUTH TWICE 00:00: A DAY 00 TAKE 1 2022-0 No TABLET BY 7-21 MOUTH TWICE 00:00: A DAY 00 &lt 2022-0 No 06-04 00:00: 00 TAKE 1 2022-0 No TABLET BY 7-21 MOUTH TWICE 00:00: A DAY 00 PLACE 1 MG 2022-0 No 15 BELOW THE 7-21 SKIN WEEKLY 00:00: 00 &lt 2022-0 No 20 06-04 00:00: 00 Dose 2022-0 No Unknown 06-04 00:00: 00 &lt 2022-0 No 20 06-04 00:00: 00 TAKE 1 2022-0 No 40 CAPSULE BY 7-21 MOUTH DAILY 00:00: DO NOT 00 START UNTIL ALL ANTIBIOTICS ARE FINISHED &lt 2022-0 No 500 06-04 00:00: 00 TAKE 1 2022-0 No 10 TABLET BY 7-21 MOUTH EVERY 00:00: DAY 00 TAKE 1 2022-0 No TABLET BY 7-21 MOUTH TWICE 00:00: A DAY 00 PLACE 1 MG 2022-0 No 15 BELOW THE 7-18 SKIN WEEKLY 00:00: 00 TAKE 1 2022-0 No 40 TABLET BY 7-18 MOUTH 00:00: EVERYDAY AT 00 BEDTIME Dose 2022-0 No Unknown 06-01 00:00: 00 PLACE 1 MG 2022-0 No 15 BELOW THE 7-18 SKIN WEEKLY 00:00: 00 TAKE 1 2022-0 No 40 TABLET BY 7-18 MOUTH 00:00: EVERYDAY AT 00 BEDTIME Dose 2022-0 No Unknown 06-01 00:00: 00 PLACE 1 MG 2022-0 No 15 BELOW THE 7-18 SKIN WEEKLY 00:00: 00 TAKE 1 2022-0 No 40 TABLET BY 7-18 MOUTH 00:00: EVERYDAY AT 00 BEDTIME Dose 2022-0 No Unknown 06-01 00:00: 00 PLACE 1 MG 2022-0 No 15 BELOW THE 7-18 SKIN WEEKLY 00:00: 00 TAKE 1 2022-0 No 40 TABLET BY 7-18 MOUTH 00:00: EVERYDAY AT 00 BEDTIME Dose 2022-0 No Unknown 06-01 00:00: 00 PLACE 1 MG 2022-0 No 15 BELOW THE 7-18 SKIN WEEKLY 00:00: 00 TAKE 1 2022-0 No 40 TABLET BY 7-18 MOUTH 00:00: EVERYDAY AT 00 BEDTIME Dose 2022-0 No Unknown 06-01 00:00: 00 PLACE 1 MG 2022-0 No 15 BELOW THE 7-18 SKIN WEEKLY 00:00: 00 TAKE 1 2022-0 No 40 TABLET BY 7-18 MOUTH 00:00: EVERYDAY AT 00 BEDTIME Dose 2022-0 No Unknown 06-01 00:00: 00 PLACE 1 MG 2022-0 No 15 BELOW THE 7-18 SKIN WEEKLY 00:00: 00 TAKE 1 2022-0 No 40 TABLET BY 7-18 MOUTH 00:00: EVERYDAY AT 00 BEDTIME Dose 2022-0 No Unknown 18 00:00: 00 &lt 2022-0 No 7-16 00:00: 00 &lt 2022-0 No 20 7-16 00:00: 00 &lt 2022-0 No 10 7-16 00:00: 00 &lt 2022-0 No 7-16 00:00: 00 &lt 2022-0 No 20 7-16 00:00: 00 &lt 2022-0 No 10 7-16 00:00: 00 &lt 2022-0 No 7-16 00:00: 00 &lt 2022-0 No 20 7-16 00:00: 00 &lt 2022-0 No 10 7-16 00:00: 00 &lt 2022-0 No 7-16 00:00: 00 &lt 2022-0 No 20 7-16 00:00: 00 &lt 2022-0 No 10 7-16 00:00: 00 &lt 2022-0 No 7-16 00:00: 00 &lt 2022-0 No 20 7-16 00:00: 00 &lt 2022-0 No 10 7-16 00:00: 00 &lt 2022-0 No 7-16 00:00: 00 &lt 2022-0 No 20 7-16 00:00: 00 &lt 2022-0 No 10 7-16 00:00: 00 &lt 2022-0 No 7-16 00:00: 00 &lt 2022-0 No 20 7-16 00:00: 00 &lt 2022-0 No 10 7-16 00:00: 00 &lt 2022-0 No 7-15 00:00: 00 TAKE 1 2022-0 No 10 TABLET BY 7-15 MOUTH EVERY 00:00: DAY 00 TAKE 1 2022-0 No 40 TABLET BY 7-15 MOUTH 00:00: EVERYDAY AT 00 BEDTIME Dose 2022-0 No 10 Unknown 7-15 00:00: 00 PLACE 1 MG 2022-0 No 15 BELOW THE 7-15 SKIN WEEKLY 00:00: 00 &lt 2022-0 No 7-15 00:00: 00 &lt 2022-0 No 7-15 00:00: 00 TAKE 1 2022-0 No 10 TABLET BY 7-15 MOUTH EVERY 00:00: DAY 00 TAKE 1 2022-0 No 40 TABLET BY 7-15 MOUTH 00:00: EVERYDAY AT 00 BEDTIME Dose 2022-0 No 10 Unknown 7-15 00:00: 00 PLACE 1 MG 2022-0 No 15 BELOW THE 7-15 SKIN WEEKLY 00:00: 00 &lt 2022-0 No 7-15 00:00: 00 &lt 2022-0 No 7-15 00:00: 00 TAKE 1 2022-0 No 10 TABLET BY 7-15 MOUTH EVERY 00:00: DAY 00 TAKE 1 2022-0 No 40 TABLET BY 7-15 MOUTH 00:00: EVERYDAY AT 00 BEDTIME Dose 2022-0 No 10 Unknown 7-15 00:00: 00 PLACE 1 MG 2022-0 No 15 BELOW THE 7-15 SKIN WEEKLY 00:00: 00 &lt 2022-0 No 7-15 00:00: 00 &lt 2022-0 No 7-15 00:00: 00 TAKE 1 2022-0 No 10 TABLET BY 7-15 MOUTH EVERY 00:00: DAY 00 TAKE 1 2022-0 No 40 TABLET BY 7-15 MOUTH 00:00: EVERYDAY AT 00 BEDTIME Dose 2022-0 No 10 Unknown 7-15 00:00: 00 PLACE 1 MG 2022-0 No 15 BELOW THE 7-15 SKIN WEEKLY 00:00: 00 &lt 2022-0 No 7-15 00:00: 00 &lt 2022-0 No 7-15 00:00: 00 TAKE 1 2022-0 No 10 TABLET BY 7-15 MOUTH EVERY 00:00: DAY 00 TAKE 1 2022-0 No 40 TABLET BY 7-15 MOUTH 00:00: EVERYDAY AT 00 BEDTIME Dose 2022-0 No 10 Unknown 7-15 00:00: 00 PLACE 1 MG 2022-0 No 15 BELOW THE 7-15 SKIN WEEKLY 00:00: 00 &lt 2022-0 No 7-15 00:00: 00 &lt 2022-0 No 7-15 00:00: 00 TAKE 1 2022-0 No 10 TABLET BY 7-15 MOUTH EVERY 00:00: DAY 00 TAKE 1 2022-0 No 40 TABLET BY 7-15 MOUTH 00:00: EVERYDAY AT 00 BEDTIME Dose 2022-0 No 10 Unknown 7-15 00:00: 00 PLACE 1 MG 2022-0 No 15 BELOW THE 7-15 SKIN WEEKLY 00:00: 00 &lt 2022-0 No 7-15 00:00: 00 &lt 2022-0 No 7-15 00:00: 00 TAKE 1 2022-0 No 10 TABLET BY 7-15 MOUTH EVERY 00:00: DAY 00 TAKE 1 2022-0 No 40 TABLET BY 7-15 MOUTH 00:00: EVERYDAY AT 00 BEDTIME Dose 2022-0 No 10 Unknown 7-15 00:00: 00 PLACE 1 MG 2022-0 No 15 BELOW THE 7-15 SKIN WEEKLY 00:00: 00 &lt 2022-0 No 7-15 00:00: 00 &lt 2022-0 No 7-15 00:00: 00 TAKE 1 2022-0 No 10 TABLET BY 7-15 MOUTH EVERY 00:00: DAY 00 TAKE 1 2022-0 No 40 TABLET BY 7-15 MOUTH 00:00: EVERYDAY AT 00 BEDTIME Dose 2022-0 No 10 Unknown 7-15 00:00: 00 PLACE 1 MG 2022-0 No 15 BELOW THE 7-15 SKIN WEEKLY 00:00: 00 &lt 2022-0 No 7-15 00:00: 00 Dose 2022-0 No Unknown 4-12 00:00: 00 Dose 2022-0 No Unknown 4-12 00:00: 00 Dose 2022-0 No Unknown 4-12 00:00: 00 Dose 2022-0 No Unknown 4-12 00:00: 00 Dose 2022-0 No Unknown 4-12 00:00: 00 Dose 2022-0 No Unknown 4-12 00:00: 00 Dose 2022-0 No Unknown 4-12 00:00: 00 Dose 2022-0 No Unknown 4-12 00:00: 00 Dose 2022-0 No Unknown 4-12 00:00: 00 Dose 2022-0 No Unknown 4-12 00:00: 00 Dose 2022-0 No Unknown 4-12 00:00: 00 Dose 2022-0 No Unknown 4-12 00:00: 00 Dose 2022-0 No Unknown 4-12 00:00: 00 Dose 2022-0 No Unknown 4-12 00:00: 00 Dose 2022-0 No Unknown 4-12 00:00: 00 Dose 2022-0 No Unknown 4-12 00:00: 00 lidocaine 5 2022-0 No 1% % topical 4-11 patch 00:00: 00 Dose 2022-0 No Unknown 4-11 00:00: 00 lidocaine 5 2022-0 No 1% % topical 4-11 patch 00:00: 00 Dose 2022-0 No Unknown 4-11 00:00: 00 Dose 2022-0 No Unknown 4-11 00:00: 00 Dose 2022-0 No Unknown 4-11 00:00: 00 Dose 2022-0 No Unknown 4-11 00:00: 00 Dose 2022-0 No Unknown 4-11 00:00: 00 Dose 2022-0 No Unknown 4-11 00:00: 00 Dose 2022-0 No Unknown 4-11 00:00: 00 Dose 2022-0 No Unknown 4-11 00:00: 00 Dose 2022-0 No Unknown 4-11 00:00: 00 Dose 2022-0 No Unknown 4-11 00:00: 00 Dose 2022-0 No Unknown 4-11 00:00: 00 lidocaine 5 2-0 No 1% % topical 4-11 patch 00:00: 00 Dose 2022-0 No Unknown 4-11 00:00: 00 Dose 2-0 No Unknown 4-11 00:00: 00 Dose 2-0 No Unknown 4-11 00:00: 00 Dose 2-0 No Unknown 4-11 00:00: 00 Dose 2-0 No Unknown 4-11 00:00: 00 Dose 2022-0 No Unknown 4-11 00:00: 00 lidocaine 5 2-0 No 1% % topical 4-11 patch 00:00: 00 Dose 2022-0 No Unknown 4-11 00:00: 00 Dose 2022-0 No Unknown 4-11 00:00: 00 Dose 2-0 No Unknown 4-11 00:00: 00 Dose 2-0 No Unknown 4-11 00:00: 00 Dose 2-0 No Unknown 4-11 00:00: 00 Dose 2022-0 No Unknown 4-11 00:00: 00 lidocaine 5 2-0 No 1% % topical 4-11 patch 00:00: 00 Dose 2022-0 No Unknown 4-11 00:00: 00 Dose 2022-0 No Unknown 4-11 00:00: 00 Dose 2022-0 No Unknown 4-11 00:00: 00 Dose 2022-0 No Unknown 4-11 00:00: 00 Dose 2022-0 No Unknown 4-11 00:00: 00 Dose 2022-0 No Unknown 4-11 00:00: 00 lidocaine 5 2-0 No 1% % topical 4-11 patch 00:00: 00 Dose 2022-0 No Unknown 4-11 00:00: 00 Dose 2022-0 No Unknown 4-11 00:00: 00 Dose 2022-0 No Unknown 4-11 00:00: 00 Dose 2022-0 No Unknown 4-11 00:00: 00 Dose 2022-0 No Unknown 4-11 00:00: 00 Dose 2022-0 No Unknown 4-11 00:00: 00 lidocaine 5 2-0 No 1% % topical 4-11 patch 00:00: 00 Dose 2022-0 No Unknown 4-11 00:00: 00 Dose 2022-0 No Unknown 4-11 00:00: 00 Dose 2022-0 No Unknown 4-11 00:00: 00 Dose 2022-0 No Unknown 4-11 00:00: 00 Dose 2022-0 No Unknown 4-11 00:00: 00 Dose 2022-0 No Unknown 4-11 00:00: 00 lidocaine 5 2-0 No 1% % topical 4-11 patch 00:00: 00 Dose 2022-0 No Unknown 4-11 00:00: 00 Dose 2022-0 No Unknown 4-11 00:00: 00 Dose 2022-0 No Unknown 4-11 00:00: 00 Dose 2022-0 No Unknown 4-11 00:00: 00 Dose 2022-0 No Unknown 4-11 00:00: 00 Dose 2022-0 No Unknown 4-11 00:00: 00 Dose 2022-0 No Unknown 3-15 00:00: 00 Dose 2022-0 No Unknown 3-15 00:00: 00 Dose 2022-0 No Unknown 3-15 00:00: 00 Dose 2022-0 No Unknown 3-15 00:00: 00 Dose 2022-0 No Unknown 3-15 00:00: 00 Dose 2022-0 No Unknown 3-15 00:00: 00 Dose 2022-0 No Unknown 3-15 00:00: 00 Dose 2022-0 No Unknown 3-15 00:00: 00 Dose 2022-0 No Unknown 3-15 00:00: 00 Dose 2022-0 No Unknown 3-15 00:00: 00 Dose 2022-0 No Unknown 3-15 00:00: 00 Dose 2022-0 No Unknown 3-15 00:00: 00 Dose 2022-0 No Unknown 3-15 00:00: 00 Trulicity 2022-0 No 1mg/0.5 1.5 mg/0.5 3-15 mL mL 00:00: subcutaneou 00 s pen injector losartan 50 2022-0 No 1mg mg tablet 3-15 00:00: 00 amlodipine 2-0 No 1mg 10 mg 3-15 tablet 00:00: 00 Dose 2022-0 No Unknown 3-15 00:00: 00 Dose 2022-0 No Unknown 3-15 00:00: 00 Farxiga 10 2-0 No 1mg mg tablet 3-15 00:00: 00 Dose 2022-0 No Unknown 3-15 00:00: 00 Dose 2022-0 No Unknown 3-15 00:00: 00 metformin 2-0 No 1mg ER 1,000 mg 3-15 24 hr 00:00: tablet,exte 00 nded release metformin 2-0 No 1mg ER 500 mg 3-15 24 hr 00:00: tablet,exte 00 nded release atorvastati 2-0 No 1mg n 40 mg 3-15 tablet 00:00: 00 Dose 2022-0 No Unknown 3-15 00:00: 00 Dose 2022-0 No Unknown 3-15 00:00: 00 Dose 2022-0 No Unknown 3-15 00:00: 00 Dose 2022-0 No Unknown 3-15 00:00: 00 Dose 2022-0 No Unknown 3-15 00:00: 00 Dose 2022-0 No Unknown 3-15 00:00: 00 Dose 2022-0 No Unknown 3-15 00:00: 00 Dose 2022-0 No Unknown 3-15 00:00: 00 Dose 2022-0 No Unknown 3-15 00:00: 00 Dose 2022-0 No Unknown 3-15 00:00: 00 Dose 2022-0 No Unknown 3-15 00:00: 00 Dose 2022-0 No Unknown 3-15 00:00: 00 Dose 2022-0 No Unknown 3-15 00:00: 00 Dose 2022-0 No Unknown 3-15 00:00: 00 Dose 2022-0 No Unknown 3-15 00:00: 00 Dose 2022-0 No Unknown 3-15 00:00: 00 Dose 2022-0 No Unknown 3-15 00:00: 00 Dose 2022-0 No Unknown 3-15 00:00: 00 Dose 2022-0 No Unknown 3-15 00:00: 00 Dose 2022-0 No Unknown 3-15 00:00: 00 Dose 2022-0 No Unknown 3-15 00:00: 00 Dose 2022-0 No Unknown 3-15 00:00: 00 Dose 2022-0 No Unknown 3-15 00:00: 00 Dose 2022-0 No Unknown 3-15 00:00: 00 Dose 2022-0 No Unknown 3-15 00:00: 00 Dose 2022-0 No Unknown 3-15 00:00: 00 Dose 2022-0 No Unknown 3-15 00:00: 00 Dose 2022-0 No Unknown 3-15 00:00: 00 Dose 2022-0 No Unknown 3-15 00:00: 00 Dose 2022-0 No Unknown 3-15 00:00: 00 Dose 2022-0 No Unknown 3-15 00:00: 00 Dose 2022-0 No Unknown 3-15 00:00: 00 Dose 2-0 No Unknown 3-15 00:00: 00 Dose 2022-0 No Unknown 3-15 00:00: 00 Dose 2022-0 No Unknown 3-15 00:00: 00 Dose 2022-0 No Unknown 3-15 00:00: 00 Dose 2-0 No Unknown 3-15 00:00: 00 Trulicity 2-0 No 1mg/0.5 1.5 mg/0.5 3-15 mL mL 00:00: subcutaneou 00 s pen injector losartan 50 2-0 No 1mg mg tablet 3-15 00:00: 00 amlodipine 2-0 No 1mg 10 mg 3-15 tablet 00:00: 00 Dose 2-0 No Unknown 3-15 00:00: 00 Farxiga 10 2-0 No 1mg mg tablet 3-15 00:00: 00 Dose 2-0 No Unknown 3-15 00:00: 00 Dose 2-0 No Unknown 3-15 00:00: 00 metformin 2-0 No 1mg ER 1,000 mg 3-15 24 hr 00:00: tablet,exte 00 nded release metformin 2-0 No 1mg ER 500 mg 3-15 24 hr 00:00: tablet,exte 00 nded release atorvastati 2-0 No 1mg n 40 mg 3-15 tablet 00:00: 00 Dose 2-0 No Unknown 3-15 00:00: 00 Dose 2022-0 No Unknown 3-15 00:00: 00 Dose 2022-0 No Unknown 3-15 00:00: 00 Dose 2022-0 No Unknown 3-15 00:00: 00 Dose 2022-0 No Unknown 3-15 00:00: 00 Dose 2022-0 No Unknown 3-15 00:00: 00 Dose 2022-0 No Unknown 3-15 00:00: 00 Dose 2022-0 No Unknown 3-15 00:00: 00 Dose 2022-0 No Unknown 3-15 00:00: 00 Dose 2022-0 No Unknown 3-15 00:00: 00 Dose 2022-0 No Unknown 3-15 00:00: 00 Dose 2022-0 No Unknown 3-15 00:00: 00 Dose 2022-0 No Unknown 3-15 00:00: 00 Dose 2022-0 No Unknown 3-15 00:00: 00 Dose 2022-0 No Unknown 3-15 00:00: 00 Dose 2022-0 No Unknown 3-15 00:00: 00 Dose 2022-0 No Unknown 3-15 00:00: 00 Dose 2022-0 No Unknown 3-15 00:00: 00 Dose 2022-0 No Unknown 3-15 00:00: 00 Dose 2022-0 No Unknown 3-15 00:00: 00 Dose 2022-0 No Unknown 3-15 00:00: 00 Dose 2022-0 No Unknown 3-15 00:00: 00 Dose 2022-0 No Unknown 3-15 00:00: 00 Dose 2022-0 No Unknown 3-15 00:00: 00 Dose 2022-0 No Unknown 3-15 00:00: 00 Dose 2022-0 No Unknown 3-15 00:00: 00 Dose 2022-0 No Unknown 3-15 00:00: 00 Dose 2022-0 No Unknown 3-15 00:00: 00 Dose 2022-0 No Unknown 3-15 00:00: 00 Dose 2022-0 No Unknown 3-15 00:00: 00 Dose 2022-0 No Unknown 3-15 00:00: 00 Dose 2022-0 No Unknown 3-15 00:00: 00 Dose 2022-0 No Unknown 3-15 00:00: 00 Dose 2022-0 No Unknown 3-15 00:00: 00 Dose 2022-0 No Unknown 3-15 00:00: 00 Trulicity 2022-0 No 1mg/0.5 1.5 mg/0.5 3-15 mL mL 00:00: subcutaneou 00 s pen injector losartan 50 2-0 No 1mg mg tablet 3-15 00:00: 00 amlodipine 2-0 No 1mg 10 mg 3-15 tablet 00:00: 00 Dose 2-0 No Unknown 3-15 00:00: 00 Farxiga 10 2-0 No 1mg mg tablet 3-15 00:00: 00 Dose 2-0 No Unknown 3-15 00:00: 00 Dose 2-0 No Unknown 3-15 00:00: 00 metformin 2-0 No 1mg ER 1,000 mg 3-15 24 hr 00:00: tablet,exte 00 nded release metformin 2-0 No 1mg ER 500 mg 3-15 24 hr 00:00: tablet,exte 00 nded release atorvastati 2-0 No 1mg n 40 mg 3-15 tablet 00:00: 00 Dose 2022-0 No Unknown 3-15 00:00: 00 Dose 2022-0 No Unknown 3-15 00:00: 00 Dose 2022-0 No Unknown 3-15 00:00: 00 Dose 2022-0 No Unknown 3-15 00:00: 00 Dose 2022-0 No Unknown 3-15 00:00: 00 Dose 2022-0 No Unknown 3-15 00:00: 00 Dose 2022-0 No Unknown 3-15 00:00: 00 Dose 2022-0 No Unknown 3-15 00:00: 00 Dose 2022-0 No Unknown 3-15 00:00: 00 Dose 2022-0 No Unknown 3-15 00:00: 00 Dose 2022-0 No Unknown 3-15 00:00: 00 Dose 2022-0 No Unknown 3-15 00:00: 00 Dose 2022-0 No Unknown 3-15 00:00: 00 Dose 2022-0 No Unknown 3-15 00:00: 00 Dose 2022-0 No Unknown 3-15 00:00: 00 Dose 2022-0 No Unknown 3-15 00:00: 00 Dose 2022-0 No Unknown 3-15 00:00: 00 Dose 2022-0 No Unknown 3-15 00:00: 00 Dose 2022-0 No Unknown 3-15 00:00: 00 Dose 2022-0 No Unknown 3-15 00:00: 00 Dose 2022-0 No Unknown 3-15 00:00: 00 Dose 2022-0 No Unknown 3-15 00:00: 00 Dose 2022-0 No Unknown 3-15 00:00: 00 Dose 2022-0 No Unknown 3-15 00:00: 00 Dose 2022-0 No Unknown 3-15 00:00: 00 Dose 2022-0 No Unknown 3-15 00:00: 00 Dose 2022-0 No Unknown 3-15 00:00: 00 Dose 2022-0 No Unknown 3-15 00:00: 00 Dose 2022-0 No Unknown 3-15 00:00: 00 Dose 2022-0 No Unknown 3-15 00:00: 00 Dose 2-0 No Unknown 3-15 00:00: 00 Dose 2022-0 No Unknown 3-15 00:00: 00 Dose 2022-0 No Unknown 3-15 00:00: 00 Dose 2022-0 No Unknown 3-15 00:00: 00 Dose 2022-0 No Unknown 3-15 00:00: 00 Trulicity 2-0 No 1mg/0.5 1.5 mg/0.5 3-15 mL mL 00:00: subcutaneou 00 s pen injector losartan 50 2-0 No 1mg mg tablet 3-15 00:00: 00 amlodipine 2-0 No 1mg 10 mg 3-15 tablet 00:00: 00 Dose 2-0 No Unknown 3-15 00:00: 00 Farxiga 10 2-0 No 1mg mg tablet 3-15 00:00: 00 Dose 2-0 No Unknown 3-15 00:00: 00 Dose 2-0 No Unknown 3-15 00:00: 00 metformin 2-0 No 1mg ER 1,000 mg 3-15 24 hr 00:00: tablet,exte 00 nded release metformin 2-0 No 1mg ER 500 mg 3-15 24 hr 00:00: tablet,exte 00 nded release atorvastati 2-0 No 1mg n 40 mg 3-15 tablet 00:00: 00 Dose 2-0 No Unknown 3-15 00:00: 00 Dose 2022-0 No Unknown 3-15 00:00: 00 Dose 2022-0 No Unknown 3-15 00:00: 00 Dose 2022-0 No Unknown 3-15 00:00: 00 Dose 2022-0 No Unknown 3-15 00:00: 00 Dose 2022-0 No Unknown 3-15 00:00: 00 Dose 2022-0 No Unknown 3-15 00:00: 00 Dose 2022-0 No Unknown 3-15 00:00: 00 Dose 2022-0 No Unknown 3-15 00:00: 00 Dose 2022-0 No Unknown 3-15 00:00: 00 Dose 2022-0 No Unknown 3-15 00:00: 00 Dose 2022-0 No Unknown 3-15 00:00: 00 Dose 2022-0 No Unknown 3-15 00:00: 00 Dose 2022-0 No Unknown 3-15 00:00: 00 Dose 2022-0 No Unknown 3-15 00:00: 00 Dose 2022-0 No Unknown 3-15 00:00: 00 Dose 2022-0 No Unknown 3-15 00:00: 00 Dose 2022-0 No Unknown 3-15 00:00: 00 Dose 2022-0 No Unknown 3-15 00:00: 00 Dose 2022-0 No Unknown 3-15 00:00: 00 Dose 2022-0 No Unknown 3-15 00:00: 00 Dose 2022-0 No Unknown 3-15 00:00: 00 Dose 2022-0 No Unknown 3-15 00:00: 00 Dose 2022-0 No Unknown 3-15 00:00: 00 Dose 2022-0 No Unknown 3-15 00:00: 00 Dose 2022-0 No Unknown 3-15 00:00: 00 Dose 2022-0 No Unknown 3-15 00:00: 00 Dose 2022-0 No Unknown 3-15 00:00: 00 Dose 2022-0 No Unknown 3-15 00:00: 00 Dose 2022-0 No Unknown 3-15 00:00: 00 Dose 2022-0 No Unknown 3-15 00:00: 00 Dose 2022-0 No Unknown 3-15 00:00: 00 Dose 2022-0 No Unknown 3-15 00:00: 00 Dose 2022-0 No Unknown 3-15 00:00: 00 Dose 2022-0 No Unknown 3-15 00:00: 00 Trulicity 2-0 No 1mg/0.5 1.5 mg/0.5 3-15 mL mL 00:00: subcutaneou 00 s pen injector losartan 50 2-0 No 1mg mg tablet 3-15 00:00: 00 amlodipine 2-0 No 1mg 10 mg 3-15 tablet 00:00: 00 allopurinol 2-0 No 1mg 300 mg 3-15 tablet 00:00: 00 Farxiga 10 2021-0 No 1mg mg tablet 3-15 00:00: 00 Dose 2-0 No Unknown 3-15 00:00: 00 Dose 2-0 No Unknown 3-15 00:00: 00 metformin 2-0 No 1mg ER 1,000 mg 3-15 24 hr 00:00: tablet,exte 00 nded release metformin 2-0 No 1mg ER 500 mg 3-15 24 hr 00:00: tablet,exte 00 nded release atorvastati 2021-0 No 1mg n 40 mg 3-15 tablet 00:00: 00 Dose 2022-0 No Unknown 3-15 00:00: 00 Dose 2022-0 No Unknown 3-15 00:00: 00 Dose 2022-0 No Unknown 3-15 00:00: 00 Dose 2022-0 No Unknown 3-15 00:00: 00 Dose 2-0 No Unknown 3-15 00:00: 00 Dose 2022-0 No Unknown 3-15 00:00: 00 Dose 2022-0 No Unknown 3-15 00:00: 00 Dose 2022-0 No Unknown 3-15 00:00: 00 Dose 2022-0 No Unknown 3-15 00:00: 00 Dose 2022-0 No Unknown 3-15 00:00: 00 Dose 2022-0 No Unknown 3-15 00:00: 00 Dose 2022-0 No Unknown 3-15 00:00: 00 Dose 2022-0 No Unknown 3-15 00:00: 00 Dose 2022-0 No Unknown 3-15 00:00: 00 Dose 2022-0 No Unknown 3-15 00:00: 00 Dose 2022-0 No Unknown 3-15 00:00: 00 Dose 2022-0 No Unknown 3-15 00:00: 00 Dose 2022-0 No Unknown 3-15 00:00: 00 Dose 2022-0 No Unknown 3-15 00:00: 00 Dose 2022-0 No Unknown 3-15 00:00: 00 Dose 2022-0 No Unknown 3-15 00:00: 00 Dose 2022-0 No Unknown 3-15 00:00: 00 Dose 2022-0 No Unknown 3-15 00:00: 00 Dose 2022-0 No Unknown 3-15 00:00: 00 Dose 2022-0 No Unknown 3-15 00:00: 00 Dose 2022-0 No Unknown 3-15 00:00: 00 Dose 2022-0 No Unknown 3-15 00:00: 00 Dose 2022-0 No Unknown 3-15 00:00: 00 Dose 2022-0 No Unknown 3-15 00:00: 00 Dose 2022-0 No Unknown 3-15 00:00: 00 Dose 2022-0 No Unknown 3-15 00:00: 00 Dose 2022-0 No Unknown 3-15 00:00: 00 Dose 2022-0 No Unknown 3-15 00:00: 00 Dose 2022-0 No Unknown 3-15 00:00: 00 Dose 2022-0 No Unknown 3-15 00:00: 00 Trulicity 2-0 No 1mg/0.5 1.5 mg/0.5 3-15 mL mL 00:00: subcutaneou 00 s pen injector losartan 50 2-0 No 1mg mg tablet 3-15 00:00: 00 amlodipine 2-0 No 1mg 10 mg 3-15 tablet 00:00: 00 allopurinol 2-0 No 1mg 300 mg 3-15 tablet 00:00: 00 Farxiga 10 2-0 No 1mg mg tablet 3-15 00:00: 00 Dose 2-0 No Unknown 3-15 00:00: 00 Dose 2-0 No Unknown 3-15 00:00: 00 metformin 2-0 No 1mg ER 1,000 mg 3-15 24 hr 00:00: tablet,exte 00 nded release metformin 2-0 No 1mg ER 500 mg 3-15 24 hr 00:00: tablet,exte 00 nded release atorvastati 2021-0 No 1mg n 40 mg 3-15 tablet 00:00: 00 Dose 2-0 No Unknown 3-15 00:00: 00 Dose 2022-0 No Unknown 3-15 00:00: 00 Dose 2022-0 No Unknown 3-15 00:00: 00 Dose 2022-0 No Unknown 3-15 00:00: 00 Dose 2022-0 No Unknown 3-15 00:00: 00 Dose 2022-0 No Unknown 3-15 00:00: 00 Dose 2022-0 No Unknown 3-15 00:00: 00 Dose 2022-0 No Unknown 3-15 00:00: 00 Dose 2022-0 No Unknown 3-15 00:00: 00 Dose 2022-0 No Unknown 3-15 00:00: 00 Dose 2022-0 No Unknown 3-15 00:00: 00 Dose 2022-0 No Unknown 3-15 00:00: 00 Dose 2022-0 No Unknown 3-15 00:00: 00 Dose 2022-0 No Unknown 3-15 00:00: 00 Dose 2022-0 No Unknown 3-15 00:00: 00 Dose 2022-0 No Unknown 3-15 00:00: 00 Dose 2022-0 No Unknown 3-15 00:00: 00 Dose 2022-0 No Unknown 3-15 00:00: 00 Dose 2022-0 No Unknown 3-15 00:00: 00 Dose 2022-0 No Unknown 3-15 00:00: 00 Dose 2022-0 No Unknown 3-15 00:00: 00 Dose 2022-0 No Unknown 3-15 00:00: 00 Dose 2022-0 No Unknown 3-15 00:00: 00 Dose 2022-0 No Unknown 3-15 00:00: 00 Dose 2022-0 No Unknown 3-15 00:00: 00 Dose 2022-0 No Unknown 3-15 00:00: 00 Dose 2022-0 No Unknown 3-15 00:00: 00 Dose 2022-0 No Unknown 3-15 00:00: 00 Dose 2022-0 No Unknown 3-15 00:00: 00 Dose 2022-0 No Unknown 3-15 00:00: 00 Dose 2022-0 No Unknown 3-15 00:00: 00 Dose 2022-0 No Unknown 3-15 00:00: 00 Dose 2022-0 No Unknown 3-15 00:00: 00 Dose 2022-0 No Unknown 3-15 00:00: 00 Dose 2022-0 No Unknown 3-15 00:00: 00 Trulicity 2022-0 No 1mg/0.5 1.5 mg/0.5 3-15 mL mL 00:00: subcutaneou 00 s pen injector losartan 50 2-0 No 1mg mg tablet 3-15 00:00: 00 amlodipine 2022-0 No 1mg 10 mg 3-15 tablet 00:00: 00 allopurinol 2022-0 No 1mg 300 mg 3-15 tablet 00:00: 00 Farxiga 10 2-0 No 1mg mg tablet 3-15 00:00: 00 Dose 2022-0 No Unknown 3-15 00:00: 00 Dose 2022-0 No Unknown 3-15 00:00: 00 metformin 2-0 No 1mg ER 1,000 mg 3-15 24 hr 00:00: tablet,exte 00 nded release metformin 2-0 No 1mg ER 500 mg 3-15 24 hr 00:00: tablet,exte 00 nded release atorvastati 2-0 No 1mg n 40 mg 3-15 tablet 00:00: 00 Dose 2022-0 No Unknown 3-15 00:00: 00 Dose 2022-0 No Unknown 3-15 00:00: 00 Dose 2022-0 No Unknown 3-15 00:00: 00 Dose 2022-0 No Unknown 3-15 00:00: 00 Trulicity 2022-0 No 1mg/0.5 1.5 mg/0.5 3-15 mL mL 00:00: subcutaneou 00 s pen injector losartan 50 2-0 No 1mg mg tablet 3-15 00:00: 00 amlodipine 2022-0 No 1mg 10 mg 3-15 tablet 00:00: 00 Dose 2022-0 No Unknown 3-15 00:00: 00 Farxiga 10 2-0 No 1mg mg tablet 3-15 00:00: 00 Dose 2022-0 No Unknown 3-15 00:00: 00 Dose 2022-0 No Unknown 3-15 00:00: 00 metformin 2022-0 No 1mg ER 1,000 mg 3-15 24 hr 00:00: tablet,exte 00 nded release Dose 2022-0 No Unknown 3-15 00:00: 00 metformin 2022-0 No 1mg ER 500 mg 3-15 24 hr 00:00: tablet,exte 00 nded release atorvastati 2-0 No 1mg n 40 mg 3-15 tablet 00:00: 00 Dose 2022-0 No Unknown 3-15 00:00: 00 Dose 2022-0 No Unknown 3-15 00:00: 00 Dose 2022-0 No Unknown 3-15 00:00: 00 Dose 2022-0 No Unknown 3-15 00:00: 00 Dose 2022-0 No Unknown 3-15 00:00: 00 Dose 2022-0 No Unknown 3-15 00:00: 00 Dose 2022-0 No Unknown 3-15 00:00: 00 Dose 2022-0 No Unknown 3-15 00:00: 00 Dose 2022-0 No Unknown 3-15 00:00: 00 Dose 2022-0 No Unknown 3-15 00:00: 00 Dose 2022-0 No Unknown 3-15 00:00: 00 Dose 2022-0 No Unknown 3-15 00:00: 00 Dose 2022-0 No Unknown 3-15 00:00: 00 Dose 2022-0 No Unknown 3-15 00:00: 00 Dose 2022-0 No Unknown 3-15 00:00: 00 Dose 2022-0 No Unknown 3-15 00:00: 00 Dose 2022-0 No Unknown 3-15 00:00: 00 Dose 2022-0 No Unknown 3-15 00:00: 00 Dose 2022-0 No Unknown 3-15 00:00: 00 Dose 2022-0 No Unknown 3-15 00:00: 00 Dose 2022-0 No Unknown 3-15 00:00: 00 Dose 2022-0 No Unknown 3-15 00:00: 00 Dose 2022-0 No Unknown 3-15 00:00: 00 Dose 2022-0 No Unknown 3-15 00:00: 00 Dose 2022-0 No Unknown 3-15 00:00: 00 Dose 2022-0 No Unknown 3-15 00:00: 00 Dose 2022-0 No Unknown 3-15 00:00: 00 Dose 2022-0 No Unknown 3-15 00:00: 00 Dose 2022-0 No Unknown 3-15 00:00: 00 Dose 2022-0 No Unknown 3-15 00:00: 00 Dose 2022-0 No Unknown 3-15 00:00: 00 Dose 2022-0 No Unknown 3-15 00:00: 00 Dose 2022-0 No Unknown 3-15 00:00: 00 Dose 2022-0 No Unknown 3-15 00:00: 00 Dose 2022-0 No Unknown 3-15 00:00: 00 Dose 2022-0 No Unknown 3-15 00:00: 00 Dose 2022-0 No Unknown 3-15 00:00: 00 Dose 2022-0 No Unknown 3-15 00:00: 00 Dose 2022-0 No Unknown 3-15 00:00: 00 Dose 2022-0 No Unknown 3-15 00:00: 00 Dose 2022-0 No Unknown 3-15 00:00: 00 Dose 2022-0 No Unknown 3-15 00:00: 00 Dose 2022-0 No Unknown 3-15 00:00: 00 Dose 2022-0 No Unknown 3-15 00:00: 00 Dose 2022-0 No Unknown 3-15 00:00: 00 Dose 2022-0 No Unknown 3-15 00:00: 00 Dose 2022-0 No Unknown 3-15 00:00: 00 Dose 2022-0 No Unknown 3-15 00:00: 00 Dose 2022-0 No Unknown 3-15 00:00: 00 indomethaci 2020-1 No 1mg n 50 mg 2-22 capsule 00:00: 00 indomethaci 2020-1 No 1mg n 50 mg 2-22 capsule 00:00: 00 indomethaci 2020-1 No 1mg n 50 mg 2-22 capsule 00:00: 00 indomethaci 2020-1 No 1mg n 50 mg 2-22 capsule 00:00: 00 indomethaci 2020-1 No 1mg n 50 mg 2-22 capsule 00:00: 00 indomethaci 1-1 No 1mg n 50 mg 2-22 capsule 00:00: 00 indomethaci 2020-1 No 1mg n 50 mg 2-22 capsule 00:00: 00 indomethaci 2020-1 No 1mg n 50 mg 2-22 capsule 00:00: 00 Dose 2020-1 No Unknown 1-10 00:00: 00 Dose 2020-1 No Unknown 1-10 00:00: 00 Dose 2020-1 No Unknown 1-10 00:00: 00 Dose 2020-1 No Unknown 1-10 00:00: 00 Dose 2020-1 No Unknown 1-10 00:00: 00 Dose 2020-1 No Unknown 1-10 00:00: 00 Dose 2020-1 No Unknown 1-10 00:00: 00 Dose 2020-1 No Unknown 1-10 00:00: 00 Dose 2020-1 No Unknown 0-27 00:00: 00 Dose 2020-1 No Unknown 0-27 00:00: 00 losartan 50 2020- No 1mg mg tablet 0-27 00:00: 00 metformin 2020-1 No 1mg ER 500 mg 0-27 24 hr 00:00: tablet,exte 00 nded release Dose 2020- No Unknown 0-27 00:00: 00 Dose 2020-1 No Unknown 0-27 00:00: 00 losartan 50 2020-1 No 1mg mg tablet 0-27 00:00: 00 metformin 2020-1 No 1mg ER 500 mg 0-27 24 hr 00:00: tablet,exte 00 nded release Dose 2020- No Unknown 0-27 00:00: 00 Dose 2020-1 No Unknown 0-27 00:00: 00 losartan 50 2020-1 No 1mg mg tablet 0-27 00:00: 00 metformin 2020-1 No 1mg ER 500 mg 0-27 24 hr 00:00: tablet,exte 00 nded release Dose 2020-1 No Unknown 0-27 00:00: 00 Dose 2020-1 No Unknown 0-27 00:00: 00 losartan 50 2020-1 No 1mg mg tablet 0-27 00:00: 00 metformin 2020-1 No 1mg ER 500 mg 0-27 24 hr 00:00: tablet,exte 00 nded release Dose 2020-1 No Unknown 0-27 00:00: 00 Dose 2020-1 No Unknown 0-27 00:00: 00 losartan 50 2020-1 No 1mg mg tablet 0-27 00:00: 00 metformin 2020-1 No 1mg ER 500 mg 0-27 24 hr 00:00: tablet,exte 00 nded release Dose 2020-1 No Unknown 0-27 00:00: 00 Dose 2020-1 No Unknown 0-27 00:00: 00 losartan 50 2020-1 No 1mg mg tablet 0-27 00:00: 00 metformin 2020-1 No 1mg ER 500 mg 0-27 24 hr 00:00: tablet,exte 00 nded release Dose 2020-1 No Unknown 0-27 00:00: 00 Dose 2020-1 No Unknown 0-27 00:00: 00 losartan 50 2020-1 No 1mg mg tablet 0-27 00:00: 00 metformin 2020-1 No 1mg ER 500 mg 0-27 24 hr 00:00: tablet,exte 00 nded release Dose 2020-1 No Unknown 0-27 00:00: 00 Dose 2020-1 No Unknown 0-27 00:00: 00 losartan 50 2020-1 No 1mg mg tablet 0-27 00:00: 00 metformin 2020-1 No 1mg ER 500 mg 0-27 24 hr 00:00: tablet,exte 00 nded release mupirocin 2 2021-0 No 1% % topical 9-28 ointment 00:00: 00 Bactrim DS 1-0 No 1mg 800 mg-160 9-28 mg tablet 00:00: 00 mupirocin 2 2021-0 No 1% % topical 9-28 ointment 00:00: 00 Bactrim DS 2021-0 No 1mg 800 mg-160 9-28 mg tablet 00:00: 00 mupirocin 2 2021-0 No 1% % topical 9-28 ointment 00:00: 00 Bactrim DS 2021-0 No 1mg 800 mg-160 9-28 mg tablet 00:00: 00 mupirocin 2 2021-0 No 1% % topical 9-28 ointment 00:00: 00 Bactrim DS 2021-0 No 1mg 800 mg-160 9-28 mg tablet 00:00: 00 mupirocin 2 2021-0 No 1% % topical 9-28 ointment 00:00: 00 Bactrim DS 2021-0 No 1mg 800 mg-160 9-28 mg tablet 00:00: 00 mupirocin 2 2021-0 No 1% % topical 9-28 ointment 00:00: 00 Bactrim DS 2021-0 No 1mg 800 mg-160 9-28 mg tablet 00:00: 00 mupirocin 2 2021-0 No 1% % topical 9-28 ointment 00:00: 00 Bactrim DS 2021-0 No 1mg 800 mg-160 9-28 mg tablet 00:00: 00 mupirocin 2 2021-0 No 1% % topical 9-28 ointment 00:00: 00 Bactrim DS 2021-0 No 1mg 800 mg-160 9-28 mg tablet 00:00: 00 Dose 2021-0 No Unknown - 00:00: 00 Dose 2021-0 No Unknown - 00:00: 00 Dose 2021-0 No Unknown - 00:00: 00 amlodipine 2021-0 No 1mg 10 mg 9- tablet 00:00: 00 fenofibrate 2021-0 No 1mg 54 mg 9- tablet 00:00: 00 lisinopril 2021-0 No 2mg 20 mg 9- tablet 00:00: 00 naproxen 2021-0 No 1mg 500 mg 9- tablet 00:00: 00 Dose 2021-0 No Unknown 07-16 00:00: 00 Dose 2021-0 No Unknown 07-16 00:00: 00 Dose 2021-0 No Unknown 07-16 00:00: 00 Dose 2021-0 No Unknown - 00:00: 00 amlodipine 2021-0 No 1mg 10 mg 9- tablet 00:00: 00 fenofibrate 2021-0 No 1mg 54 mg 9- tablet 00:00: 00 lisinopril 2021-0 No 2mg 20 mg 9- tablet 00:00: 00 naproxen 2021-0 No 1mg 500 mg 9- tablet 00:00: 00 Dose 2021-0 No Unknown 07-16 00:00: 00 Dose 2021-0 No Unknown 07-16 00:00: 00 Dose 2021-0 No Unknown - 00:00: 00 Dose 2021-0 No Unknown 07-16 00:00: 00 amlodipine 2021-0 No 1mg 10 mg 9- tablet 00:00: 00 fenofibrate 2021-0 No 1mg 54 mg 9- tablet 00:00: 00 lisinopril 2021-0 No 2mg 20 mg 9- tablet 00:00: 00 naproxen 2021-0 No 1mg 500 mg 9- tablet 00:00: 00 Dose 2021-0 No Unknown 07-16 00:00: 00 Dose 2021-0 No Unknown 07-16 00:00: 00 Dose 2021-0 No Unknown 07-16 00:00: 00 Dose 2021-0 No Unknown 07-16 00:00: 00 amlodipine 2021-0 No 1mg 10 mg 9- tablet 00:00: 00 fenofibrate 2021-0 No 1mg 54 mg 9- tablet 00:00: 00 lisinopril 2021-0 No 2mg 20 mg 9- tablet 00:00: 00 naproxen 2021-0 No 1mg 500 mg 9- tablet 00:00: 00 Dose 2021-0 No Unknown 07-16 00:00: 00 Dose 2021-0 No Unknown 07-16 00:00: 00 Dose 2021-0 No Unknown 07-16 00:00: 00 allopurinol 2021-0 No 1mg 300 mg 9- tablet 00:00: 00 amlodipine 2021-0 No 1mg 10 mg 9- tablet 00:00: 00 fenofibrate 2021-0 No 1mg 54 mg 9- tablet 00:00: 00 lisinopril 2021-0 No 2mg 20 mg 9- tablet 00:00: 00 naproxen 2021-0 No 1mg 500 mg 9- tablet 00:00: 00 Dose 2021-0 No Unknown 07-16 00:00: 00 Dose 2021-0 No Unknown 07-16 00:00: 00 Dose 2021-0 No Unknown 07-16 00:00: 00 allopurinol 2021-0 No 1mg 300 mg 9- tablet 00:00: 00 Dose 2021-0 No Unknown 07-16 00:00: 00 Dose 2021-0 No Unknown 07-16 00:00: 00 amlodipine 2021-0 No 1mg 10 mg 9- tablet 00:00: 00 allopurinol 2021-0 No 1mg 300 mg 9- tablet 00:00: 00 amlodipine 2021-0 No 1mg 10 mg 9- tablet 00:00: 00 fenofibrate 2021-0 No 1mg 54 mg 9- tablet 00:00: 00 lisinopril 2021-0 No 2mg 20 mg 9- tablet 00:00: 00 naproxen 2021-0 No 1mg 500 mg 9- tablet 00:00: 00 Dose 2021-0 No Unknown 07-16 00:00: 00 fenofibrate 2021-0 No 1mg 54 mg 9- tablet 00:00: 00 lisinopril 2021-0 No 2mg 20 mg 9- tablet 00:00: 00 naproxen 2021-0 No 1mg 500 mg 9- tablet 00:00: 00 Dose 2021-0 No Unknown 07-16 00:00: 00 Dose 2021-0 No Unknown 07-16 00:00: 00 Dose 2021-0 No Unknown 07-16 00:00: 00 Dose 2021-0 No Unknown 07-16 00:00: 00 amlodipine 2021-0 No 1mg 10 mg 9- tablet 00:00: 00 fenofibrate 2021-0 No 1mg 54 mg 9- tablet 00:00: 00 lisinopril 2021-0 No 2mg 20 mg 9- tablet 00:00: 00 naproxen 2021-0 No 1mg 500 mg 9- tablet 00:00: 00 Dose 2021-0 No Unknown 07-16 00:00: 00 Trulicity 2021-0 No 1mg/0.5 1.5 mg/0.5 6-08 mL mL 00:00: subcutaneou 00 s pen injector Farxiga 10 1-0 No 1mg mg tablet 04-22 00:00: 00 naproxen 2021-0 No 1mg 500 mg 6-08 tablet 00:00: 00 Trulicity 2021-0 No 1mg/0.5 1.5 mg/0.5 6-08 mL mL 00:00: subcutaneou 00 s pen injector Farxiga 10 1-0 No 1mg mg tablet 04-22 00:00: 00 naproxen 2021-0 No 1mg 500 mg 6-08 tablet 00:00: 00 Trulicity 2021-0 No 1mg/0.5 1.5 mg/0.5 6-08 mL mL 00:00: subcutaneou 00 s pen injector Farxiga 10 2021-0 No 1mg mg tablet 04-22 00:00: 00 naproxen 2021-0 No 1mg 500 mg 6-08 tablet 00:00: 00 Trulicity 1-0 No 1mg/0.5 1.5 mg/0.5 6-08 mL mL 00:00: subcutaneou 00 s pen injector Farxiga 10 1-0 No 1mg mg tablet 04-22 00:00: 00 naproxen 2021-0 No 1mg 500 mg 6-08 tablet 00:00: 00 Trulicity 2021-0 No 1mg/0.5 1.5 mg/0.5 6-08 mL mL 00:00: subcutaneou 00 s pen injector Farxiga 10 1-0 No 1mg mg tablet 04-22 00:00: 00 naproxen 2021-0 No 1mg 500 mg 6-08 tablet 00:00: 00 Trulicity 1-0 No 1mg/0.5 1.5 mg/0.5 6-08 mL mL 00:00: subcutaneou 00 s pen injector Farxiga 10 1-0 No 1mg mg tablet 04-22 00:00: 00 naproxen 2021-0 No 1mg 500 mg 6-08 tablet 00:00: 00 Trulicity 1-0 No 1mg/0.5 1.5 mg/0.5 6-08 mL mL 00:00: subcutaneou 00 s pen injector Farxiga 10 1-0 No 1mg mg tablet 04-22 00:00: 00 naproxen 2021-0 No 1mg 500 mg 6-08 tablet 00:00: 00 Trulicity 1-0 No 1mg/0.5 1.5 mg/0.5 6-08 mL mL 00:00: subcutaneou 00 s pen injector Farxiga 10 1-0 No 1mg mg tablet 04-22 00:00: 00 naproxen 2021-0 No 1mg 500 mg 6-08 tablet 00:00: 00 ibuprofen 2021-0 No 1mg 600 mg 4-29 tablet 00:00: 00 ibuprofen 2021-0 No 1mg 600 mg 4-29 tablet 00:00: 00 ibuprofen 2021-0 No 1mg 600 mg 4-29 tablet 00:00: 00 ibuprofen 2021-0 No 1mg 600 mg 4-29 tablet 00:00: 00 ibuprofen 2021-0 No 1mg 600 mg 4-29 tablet 00:00: 00 ibuprofen 2021-0 No 1mg 600 mg 4-29 tablet 00:00: 00 ibuprofen 2021-0 No 1mg 600 mg 4-29 tablet 00:00: 00 ibuprofen 2021-0 No 1mg 600 mg 4-29 tablet 00:00: 00 Trulicity 2021-0 No 1mg/0.5 1.5 mg/0.5 3-30 mL mL 00:00: subcutaneou 00 s pen injector lisinopril 2021-0 No 2mg 20 mg 3-30 tablet 00:00: 00 amlodipine 2021-0 No 1mg 10 mg 3-30 tablet 00:00: 00 allopurinol 2021-0 No 1mg 300 mg 3-30 tablet 00:00: 00 fenofibrate 2021-0 No 1mg 54 mg 3-30 tablet 00:00: 00 Farxiga 10 2021-0 No 1mg mg tablet 3-30 00:00: 00 metronidazo 2021-0 No 1mg le 500 mg 3-30 tablet 00:00: 00 atorvastati 2021-0 No 1mg n 40 mg 3-30 tablet 00:00: 00 Trulicity 2021-0 No 1mg/0.5 1.5 mg/0.5 3-30 mL mL 00:00: subcutaneou 00 s pen injector lisinopril 2021-0 No 2mg 20 mg 3-30 tablet 00:00: 00 amlodipine 2021-0 No 1mg 10 mg 3-30 tablet 00:00: 00 allopurinol 2021-0 No 1mg 300 mg 3-30 tablet 00:00: 00 fenofibrate 2021-0 No 1mg 54 mg 3-30 tablet 00:00: 00 Farxiga 10 2021-0 No 1mg mg tablet 3-30 00:00: 00 metronidazo 2021-0 No 1mg le 500 mg 3-30 tablet 00:00: 00 atorvastati 2021-0 No 1mg n 40 mg 3-30 tablet 00:00: 00 Trulicity 2021-0 No 1mg/0.5 1.5 mg/0.5 3-30 mL mL 00:00: subcutaneou 00 s pen injector lisinopril 2021-0 No 2mg 20 mg 3-30 tablet 00:00: 00 amlodipine 2021-0 No 1mg 10 mg 3-30 tablet 00:00: 00 allopurinol 2021-0 No 1mg 300 mg 3-30 tablet 00:00: 00 fenofibrate 2021-0 No 1mg 54 mg 3-30 tablet 00:00: 00 Farxiga 10 1-0 No 1mg mg tablet 3-30 00:00: 00 metronidazo 2021-0 No 1mg le 500 mg 3-30 tablet 00:00: 00 atorvastati 2021-0 No 1mg n 40 mg 3-30 tablet 00:00: 00 Trulicity 2021-0 No 1mg/0.5 1.5 mg/0.5 3-30 mL mL 00:00: subcutaneou 00 s pen injector lisinopril 1-0 No 2mg 20 mg 3-30 tablet 00:00: 00 amlodipine 2021-0 No 1mg 10 mg 3-30 tablet 00:00: 00 allopurinol 2021-0 No 1mg 300 mg 3-30 tablet 00:00: 00 fenofibrate 2021-0 No 1mg 54 mg 3-30 tablet 00:00: 00 Farxiga 10 1-0 No 1mg mg tablet 3-30 00:00: 00 metronidazo 2021-0 No 1mg le 500 mg 3-30 tablet 00:00: 00 atorvastati 2021-0 No 1mg n 40 mg 3-30 tablet 00:00: 00 Trulicity 2021-0 No 1mg/0.5 1.5 mg/0.5 3-30 mL mL 00:00: subcutaneou 00 s pen injector lisinopril 2021-0 No 2mg 20 mg 3-30 tablet 00:00: 00 amlodipine 2021-0 No 1mg 10 mg 3-30 tablet 00:00: 00 allopurinol 2021-0 No 1mg 300 mg 3-30 tablet 00:00: 00 fenofibrate 2021-0 No 1mg 54 mg 3-30 tablet 00:00: 00 Farxiga 10 2021-0 No 1mg mg tablet 3-30 00:00: 00 metronidazo 2021-0 No 1mg le 500 mg 3-30 tablet 00:00: 00 atorvastati 2021-0 No 1mg n 40 mg 3-30 tablet 00:00: 00 Trulicity 2021-0 No 1mg/0.5 1.5 mg/0.5 3-30 mL mL 00:00: subcutaneou 00 s pen injector lisinopril 2021-0 No 2mg 20 mg 3-30 tablet 00:00: 00 amlodipine 2021-0 No 1mg 10 mg 3-30 tablet 00:00: 00 allopurinol 2021-0 No 1mg 300 mg 3-30 tablet 00:00: 00 fenofibrate 2021-0 No 1mg 54 mg 3-30 tablet 00:00: 00 Farxiga 10 2021-0 No 1mg mg tablet 3-30 00:00: 00 metronidazo 2021-0 No 1mg le 500 mg 3-30 tablet 00:00: 00 atorvastati 2021-0 No 1mg n 40 mg 3-30 tablet 00:00: 00 Trulicity 2021-0 No 1mg/0.5 1.5 mg/0.5 3-30 mL mL 00:00: subcutaneou 00 s pen injector lisinopril 2021-0 No 2mg 20 mg 3-30 tablet 00:00: 00 amlodipine 2021-0 No 1mg 10 mg 3-30 tablet 00:00: 00 allopurinol 2021-0 No 1mg 300 mg 3-30 tablet 00:00: 00 fenofibrate 2021-0 No 1mg 54 mg 3-30 tablet 00:00: 00 Farxiga 10 2021-0 No 1mg mg tablet 3-30 00:00: 00 metronidazo 2021-0 No 1mg le 500 mg 3-30 tablet 00:00: 00 atorvastati 2021-0 No 1mg n 40 mg 3-30 tablet 00:00: 00 Trulicity 2021-0 No 1mg/0.5 1.5 mg/0.5 3-30 mL mL 00:00: subcutaneou 00 s pen injector lisinopril 2021-0 No 2mg 20 mg 3-30 tablet 00:00: 00 amlodipine 2021-0 No 1mg 10 mg 3-30 tablet 00:00: 00 allopurinol 2021-0 No 1mg 300 mg 3-30 tablet 00:00: 00 fenofibrate 2021-0 No 1mg 54 mg 3-30 tablet 00:00: 00 Farxiga 10 1-0 No 1mg mg tablet 3-30 00:00: 00 metronidazo 2021-0 No 1mg le 500 mg 3-30 tablet 00:00: 00 atorvastati 2021-0 No 1mg n 40 mg 3-30 tablet 00:00: 00 Trulicity 2021-0 No 1mg/0.5 1.5 mg/0.5 2-08 mL mL 00:00: subcutaneou 00 s pen injector Trulicity 2021-0 No 1mg/0.5 1.5 mg/0.5 2-08 mL mL 00:00: subcutaneou 00 s pen injector Trulicity 2021-0 No 1mg/0.5 1.5 mg/0.5 2-08 mL mL 00:00: subcutaneou 00 s pen injector Trulicity 2021-0 No 1mg/0.5 1.5 mg/0.5 2-08 mL mL 00:00: subcutaneou 00 s pen injector Trulicity 2021-0 No 1mg/0.5 1.5 mg/0.5 2-08 mL mL 00:00: subcutaneou 00 s pen injector Trulicity 2021-0 No 1mg/0.5 1.5 mg/0.5 2-08 mL mL 00:00: subcutaneou 00 s pen injector Trulicity 2021-0 No 1mg/0.5 1.5 mg/0.5 2-08 mL mL 00:00: subcutaneou 00 s pen injector Trulicity 2021-0 No 1mg/0.5 1.5 mg/0.5 2-08 mL mL 00:00: subcutaneou 00 s pen injector Voltaren 1 2021-0 No 1% % topical 1-14 gel 00:00: 00 Voltaren 1 2021-0 No 1% % topical 1-14 gel 00:00: 00 Voltaren 1 2021-0 No 1% % topical 1-14 gel 00:00: 00 Voltaren 1 2021-0 No 1% % topical 1-14 gel 00:00: 00 Voltaren 1 2021-0 No 1% % topical 1-14 gel 00:00: 00 Voltaren 1 1-0 No 1% % topical 1-14 gel 00:00: 00 Voltaren 1 1-0 No 1% % topical 1-14 gel 00:00: 00 Voltaren 1 2020-0 No 1% % topical 1-14 gel 00:00: 00 lisinopril 2020-1 No 2mg 20 mg 2-22 tablet 00:00: 00 lisinopril 2019-1 No 2mg 20 mg 2-22 tablet 00:00: 00 lisinopril 2019-1 No 2mg 20 mg 2-22 tablet 00:00: 00 lisinopril 2019-1 No 2mg 20 mg 2-22 tablet 00:00: 00 lisinopril 2020-1 No 2mg 20 mg 2-22 tablet 00:00: 00 lisinopril 2019-1 No 2mg 20 mg 2-22 tablet 00:00: 00 lisinopril 2019-1 No 2mg 20 mg 2-22 tablet 00:00: 00 lisinopril 2019-1 No 2mg 20 mg 2-22 tablet 00:00: 00 AMLODIPINE 2019-1 Yes [id number] TAKE 1 U nivers 10 mg 0-07 TABLET BY [facility] tablet 00:00: MOUTH [place] 00 EVERY DAY [facility] AMLODIPINE 2020-1 Yes [id number] TAKE 1 U nivers 10 mg 0-07 TABLET BY [facility] tablet 00:00: MOUTH [place] 00 EVERY DAY [facility] AMLODIPINE 2020-1 Yes [id number] TAKE 1 U nivers 10 mg 0-07 TABLET BY [facility] tablet 00:00: MOUTH [place] 00 EVERY DAY [facility] AMLODIPINE 2020-1 Yes [id number] TAKE 1 U nivers 10 mg 0-07 TABLET BY [facility] of tablet 00:00: MOUTH [place] 00 EVERY DAY [facility] AMLODIPINE 2020-1 Yes [id number] TAKE 1 U nivers 10 mg 0-07 TABLET BY [facility] of tablet 00:00: MOUTH [place] 00 EVERY DAY [facility] AMLODIPINE 2020-1 Yes [id number] TAKE 1 U nivers 10 mg 0-07 TABLET BY [facility] of tablet 00:00: MOUTH [place] 00 EVERY DAY [facility] AMLODIPINE 2020-1 Yes [id number] TAKE 1 U nivers 10 mg 0-07 TABLET BY [facility] of tablet 00:00: MOUTH [place] 00 EVERY DAY [facility] AMLODIPINE 2020- Yes [id number] TAKE 1 U nivers 10 mg 0-07 TABLET BY [facility] of tablet 00:00: MOUTH [place] 00 EVERY DAY [facility] AMLODIPINE 2020- Yes [id number] TAKE 1 U nivers 10 mg 0-07 TABLET BY [facility]y of tablet 00:00: MOUTH [place] 00 EVERY DAY [facility] AMLODIPINE 2020- Yes [id number] TAKE 1 U nivers 10 mg 0-07 TABLET BY [facility] of tablet 00:00: MOUTH [place] 00 EVERY DAY [facility] AMLODIPINE 2020- Yes [id number] TAKE 1 U nivers 10 mg 0-07 TABLET BY [facility] of tablet 00:00: MOUTH [place] 00 EVERY DAY [facility] AMLODIPINE 2019- Yes [id number] TAKE 1 U nivers 10 mg 0-07 TABLET BY [facility]y of tablet 00:00: MOUTH [place] 00 EVERY DAY [facility] AMLODIPINE 2019- Yes [id number] TAKE 1 U nivers 10 mg 0-07 TABLET BY [facility]y of tablet 00:00: MOUTH [place] 00 EVERY DAY [facility] AMLODIPINE 2019- Yes [id number] TAKE 1 U nivers 10 mg 0-07 TABLET BY [facility] of tablet 00:00: MOUTH [place] 00 EVERY DAY [facility] AMLODIPINE 2019- Yes [id number] TAKE 1 U nivers 10 mg 0-07 TABLET BY [facility] of tablet 00:00: MOUTH [place] 00 EVERY DAY [facility] AMLODIPINE 2019- Yes [id number] TAKE 1 U nivers 10 mg 0-07 TABLET BY [facility]y of tablet 00:00: MOUTH [place] 00 EVERY DAY [facility] metformin 2019- Yes 500mg Take 500 Uni vers ER 500 mg 0-06 mg by ity of 24 hr 19:02: mouth [place] tablet 10 daily with Medical breakfast. Branch fenofibrate 2019- Yes 54mg Take 54 mg [facility] 54 mg 0-06 by mouth ity of tablet 19:02: daily. [place] [id number] [facility] atorvastati 2019- Yes 40mg Take 40 mg [facility] n 40 mg 0-06 by mouth ity of tablet 19:02: at [place] 10 bedtime. Medical Branch allopurinoL 2019- Yes 300mg Take 300 U nivers 100 mg 0-06 mg by ity of tablet 19:02: mouth [place] 10 daily. Medical Branch glipiZIDE 2019- Yes 10mg Take 10 mg Un [place] 10 mg 0-06 by mouth ity of tablet 19:02: daily. [address] metformin 2019- Yes 500mg Take 500 Uni vers ER 500 mg 0-06 mg by ity of 24 hr 19:02: mouth [place] tablet 10 daily with Medical breakfast. Branch fenofibrate 2019-11 Yes 54mg Take 54 mg [facility] 54 mg 0-06 by mouth ity of tablet 19:02: daily. [address] Branch atorvastati 2019-11 Yes 40mg Take 40 mg [facility] n 40 mg 0-06 by mouth ity of tablet 19:02: at [place] 10 bedtime. Medical Branch allopurinoL 2019-11 Yes 300mg Take 300 U nivers 100 mg 0-06 mg by ity of tablet 19:02: mouth [place] 10 daily. [facility] Branch glipiZIDE 2019-11 Yes 10mg Take 10 mg Un spark[place] 10 mg 0-06 by mouth ity of tablet 19:02: daily. [address] metformin 2019-11 Yes 500mg Take 500 Uni vers ER 500 mg 0-06 mg by ity of 24 hr 19:02: mouth [place] tablet 10 daily with Medical breakfast. Branch fenofibrate 2019-11 Yes 54mg Take 54 mg [facility] 54 mg 0-06 by mouth ity of tablet 19:02: daily. [address] atorvastati 2019-11 Yes 40mg Take 40 mg [facility] n 40 mg 0-06 by mouth ity of tablet 19:02: at [place] 10 bedtime. Medical Branch allopurinoL 2019- Yes 300mg Take 300 U nivers 100 mg 0-06 mg by ity of tablet 19:02: mouth [place] 10 daily. [facility] Branch glipiZIDE 2019-11 Yes 10mg Take 10 mg Un [place] 10 mg 0-06 by mouth ity of tablet 19:02: daily. [address] metformin 2019-11 Yes 500mg Take 500 Uni vers ER 500 mg 0-06 mg by ity of 24 hr 19:02: mouth [place] tablet 10 daily with Medical breakfast. Branch fenofibrate 2019-11 Yes 54mg Take 54 mg [facility] 54 mg 0-06 by mouth ity of tablet 19:02: daily. [address] atorvastati 2019-11 Yes 40mg Take 40 mg [facility] n 40 mg 0-06 by mouth ity of tablet 19:02: at [place] 10 bedtime. Medical Branch allopurinoL 2019- Yes 300mg Take 300 U nivers 100 mg 0-06 mg by ity of tablet 19:02: mouth [place] 10 daily. Medical Branch glipiZIDE 2019- Yes 10mg Take 10 mg Un [place] 10 mg 0-06 by mouth ity of tablet 19:02: daily. [address] Branch metformin 2019- Yes 500mg Take 500 Uni vers ER 500 mg 0-06 mg by ity of 24 hr 19:02: mouth [place] tablet 10 daily with Medical breakfast. Branch fenofibrate 2019-11 Yes 54mg Take 54 mg [facility] 54 mg 0-06 by mouth ity of tablet 19:02: daily. [address] Branch atorvastati 2019-11 Yes 40mg Take [...] mouth ity of tablet 19:02: daily. [address] metformin 2019-11 Yes 500mg Take 500 Uni vers ER 500 mg 0-06 mg by ity of 24 hr 19:02: mouth [place] tablet 10 daily with Medical breakfast. Branch fenofibrate 2019-11 Yes 54mg Take 54 mg [facility] 54 mg 0-06 by mouth ity of tablet 19:02: daily. [address] atorvastati 2019-11 Yes 40mg Take 40 mg [facility] n 40 mg 0-06 by mouth ity of tablet 19:02: at [place] 10 bedtime. Medical Branch allopurinoL 2019- Yes 300mg Take 300 U nivers 100 mg 0-06 mg by ity of tablet 19:02: mouth [place] 10 daily. [facility] Branch glipiZIDE 2019-11 Yes 10mg Take 10 mg Un [place] 10 mg 0-06 by mouth ity of tablet 19:02: daily. [address] metformin 2019-11 Yes 500mg Take 500 Uni vers ER 500 mg 0-06 mg by ity of 24 hr 19:02: mouth [place] tablet 10 daily with Medical breakfast. Branch fenofibrate 2019-11 Yes 54mg Take 54 mg [facility] 54 mg 0-06 by mouth ity of tablet 19:02: daily. [address] atorvastati 2019-11 Yes 40mg Take 40 [...] by mouth ity of tablet 19:02: daily. [place] [address] Medical Branch metformin 2019-11 Yes 500mg Take 500 Uni vers ER 500 mg 0-06 mg by ity of 24 hr 19:02: mouth [place] tablet 10 daily with Medical breakfast. Branch fenofibrate 2019-11 Yes 54mg Take 54 mg [facility] 54 mg 0-06 by mouth ity of tablet 19:02: daily. [place] [address] Medical Branch atorvastati 2019-11 Yes 40mg Take [...] by mouth ity of tablet 19:02: daily. [place] [address] Medical Branch metformin 2019-11 Yes 500mg Take 500 Uni vers ER 500 mg 0-06 mg by ity of 24 hr 19:02: mouth [place] tablet 10 daily with Medical breakfast. Branch fenofibrate 2019-11 Yes 54mg Take 54 mg [facility] 54 mg 0-06 by mouth ity of tablet 19:02: daily. [place] [address] Medical Branch atorvastati 2019-11 Yes 40mg Take [...] by mouth ity of tablet 19:02: daily. [place] [address] Medical [place] metformin 2019-11 Yes 500mg Take 500 Uni vers ER 500 mg 0-06 mg by ity of 24 hr 19:02: mouth [place] tablet 10 daily with Medical breakfast. Branch fenofibrate 2019-11 Yes 54mg Take 54 mg [facility] 54 mg 0-06 by mouth ity of tablet 19:02: daily. [place] [address] Medical Branch atorvastati 2019- Yes 40mg Take [...] by mouth ity of tablet 19:02: daily. [place] [address] Medical Branch metformin 2019-11 Yes 500mg Take 500 Uni vers ER 500 mg 0-06 mg by ity of 24 hr 19:02: mouth [place] tablet 10 daily with Medical breakfast. Branch fenofibrate 2019-11 Yes 54mg Take 54 mg [facility] 54 mg 0-06 by mouth ity of tablet 19:02: daily. [place] [address] Medical Branch atorvastati 2019-11 Yes 40mg Take [...] by mouth ity of tablet 19:02: daily. [place] [address] Medical Branch metformin 2019-11 Yes 500mg Take 500 Uni vers ER 500 mg 0-06 mg by ity of 24 hr 19:02: mouth [place] tablet 10 daily with Medical breakfast. Branch fenofibrate 2019-11 Yes 54mg Take 54 mg [facility] 54 mg 0-06 by mouth ity of tablet 19:02: daily. [place] [address] Medical Branch atorvastati 2019- Yes 40mg Take [...] by mouth ity of tablet 19:02: daily. [place] [address] Medical Branch metformin 2019- Yes 500mg Take 500 Uni vers ER 500 mg 0-06 mg by ity of 24 hr 19:02: mouth [place] tablet 10 daily with Medical breakfast. Branch fenofibrate 2019-11 Yes 54mg Take 54 mg [facility] 54 mg 0-06 by mouth ity of tablet 19:02: daily. [place] [address] Medical Branch atorvastati 2019-11 Yes 40mg Take [...] by mouth ity of tablet 19:02: daily. [address] Branch metformin 2019-11 Yes 500mg Take 500 Uni vers ER 500 mg 0-06 mg by ity of 24 hr 19:02: mouth [place] tablet 10 daily with Medical breakfast. Branch fenofibrate 2019-11 Yes 54mg Take 54 mg [facility] 54 mg 0-06 by mouth ity of tablet 19:02: daily. [place] [address] Medical Branch atorvastati 2019-11 Yes 40mg Take 40 mg [facility] n 40 mg 0-06 by mouth ity of tablet 19:02: at [place] 10 bedtime. Medical Branch allopurinoL 2019-11 Yes 300mg Take 300 U nivers 100 mg 0-06 mg by ity of tablet 19:02: mouth [place] 10 daily. Medical Branch glipiZIDE 2019-11 Yes 10mg Take 10 mg Un [place] 10 mg 0-06 by mouth ity of tablet 19:02: daily. [place] [address] Medical Branch metformin 2019-11 Yes 500mg Take 500 Uni vers ER 500 mg 0-06 mg by ity of 24 hr 19:02: mouth [place] tablet 10 daily with Medical breakfast. Branch fenofibrate 2019-11 Yes 54mg Take 54 mg [facility] 54 mg 0-06 by mouth ity of tablet 19:02: daily. [address] atorvastati 2019-11 Yes 40mg Take 40 mg [facility] n 40 mg 0-06 by mouth ity of tablet 19:02: at [place] 10 bedtime. Medical Branch allopurinoL 2019- Yes 300mg Take 300 U nivers 100 mg 0-06 mg by ity of tablet 19:02: mouth [place] 10 daily. Medical Branch glipiZIDE 2019-11 Yes 10mg Take 10 mg Un [place] 10 mg 0-06 by mouth ity of tablet 19:02: daily. [address] metformin 2019-11 Yes 500mg Take 500 Uni vers ER 500 mg 0-06 mg by ity of 24 hr 19:02: mouth [place] tablet 10 daily with Medical breakfast. Branch fenofibrate 2019-11 Yes 54mg Take 54 mg [facility] 54 mg 0-06 by mouth ity of tablet 19:02: daily. [place] [address] Medical Branch atorvastati 2019-11 Yes 40mg Take 40 mg [facility] n 40 mg 0-06 by mouth ity of tablet 19:02: at [place] 10 bedtime. Medical Branch allopurinoL 2019-11 Yes 300mg Take 300 U nivers 100 mg 0-06 mg by ity of tablet 19:02: mouth [place] 10 daily. Medical Branch glipiZIDE 2019-11 Yes 10mg Take 10 mg Un [place] 10 mg 0-06 by mouth ity of tablet 19:02: daily. [address] metformin 2019-11 Yes 500mg Take 500 Uni vers ER 500 mg 0-06 mg by ity of 24 hr 19:02: mouth [place] tablet 10 daily with Medical breakfast. Branch fenofibrate 2019-11 Yes 54mg Take 54 mg [facility] 54 mg 0-06 by mouth ity of tablet 19:02: daily. [address] Branch atorvastati 2019-11 Yes 40mg Take [...] mouth ity of tablet 19:02: daily. [address] metformin 2019-11 Yes 500mg Take 500 Uni vers ER 500 mg 0-06 mg by ity of 24 hr 19:02: mouth [place] tablet 10 daily with Medical breakfast. Branch fenofibrate 2019-11 Yes 54mg Take 54 mg [facility] 54 mg 0-06 by mouth ity of tablet 19:02: daily. [place] [address] Medical Branch atorvastati 2019- Yes 40mg Take 40 mg [facility] n 40 mg 0-06 by mouth ity of tablet 19:02: at [place] 10 bedtime. Medical Branch allopurinoL 2019-11 Yes 300mg Take 300 U nivers 100 mg 0-06 mg by ity of tablet 19:02: mouth [place] 10 daily. Medical Branch glipiZIDE 2019-11 Yes 10mg Take 10 mg Un [place] 10 mg 0-06 by mouth ity of tablet 19:02: daily. [place] [address] Medical Branch metformin 2019-11 Yes 500mg Take 500 Uni vers ER 500 mg 0-06 mg by ity of 24 hr 14:02: mouth [place] tablet 10 daily with Medical breakfast. Branch fenofibrate 2019-11 Yes 54mg Take 54 mg [facility] 54 mg 0-06 by mouth ity of tablet 14:02: daily. [place] [address] Medical Branch atorvastati 2019-11 Yes 40mg Take 40 mg [facility] n 40 mg 0-06 by mouth ity of tablet 14:02: at [place] 10 bedtime. Medical Branch allopurinoL 2019-11 Yes 300mg Take 300 U nivers 100 mg 0-06 mg by ity of tablet 14:02: mouth [place] 10 daily. Medical Branch glipiZIDE 2019-11 Yes 10mg Take 10 mg Un [place] 10 mg 0-06 by mouth ity of tablet 14:02: daily. [place] [address] Medical Branch carvediloL 2019-11 Yes [id number] 25mg Take 1 U nivers 25 mg 0-06 tablet by ity of tablet 00:00: mouth 2 [place] 00 (two) Medical times [place] daily with meals. amLODIPine 2019-11 Yes [id number] 10mg Take 1 U nivers 10 mg 0-06 tablet by ity of tablet 00:00: mouth [place] 00 daily. Medical Branch lisinopriL 2019-11 Yes 20mg Take 1 Unive rs (PRINIVIL) 0-06 tablet by ity of 20 mg 00:00: mouth [place] tablet 00 daily. Medical Branch carvediloL 2019-11 Yes [id number] 25mg Take 1 U nivers 25 mg 0-06 tablet by ity of tablet 00:00: mouth 2 [place] 00 (two) Medical times [place] daily with meals. lisinopriL 2019-11 Yes 20mg Take 1 Unive rs (PRINIVIL) 0-06 tablet by ity of 20 mg 00:00: mouth [place] tablet 00 daily. Medical Branch carvediloL 2019-11 Yes [id number] 25mg Take 1 U nivers 25 mg 0-06 tablet by ity of tablet 00:00: mouth 2 [place] 00 (two) Medical times Branch daily with meals. lisinopriL 2019-11 Yes 20mg Take 1 Unive rs (PRINIVIL) 0-06 tablet by ity of 20 mg 00:00: mouth [place] tablet 00 daily. Medical Branch carvediloL 2019-11 Yes [id number] 25mg Take 1 U nivers 25 mg 0-06 tablet by ity of tablet 00:00: mouth 2 [place] 00 (two) Medical times Branch daily with meals. lisinopriL 2019-11 Yes 20mg Take 1 Unive rs (PRINIVIL) 0-06 tablet by ity of 20 mg 00:00: mouth [place] tablet 00 daily. Medical Branch carvediloL 2019-11 Yes [id number] 25mg Take 1 U nivers 25 mg 0-06 tablet by ity of tablet 00:00: mouth 2 [place] 00 (two) Medical times Branch daily with meals. lisinopriL 2019-11 Yes 20mg Take 1 Unive rs (PRINIVIL) 0-06 tablet by ity of 20 mg 00:00: mouth [place] tablet 00 daily. Medical Branch carvediloL 2019-11 Yes [id number] 25mg Take 1 U nivers 25 mg 0-06 tablet by ity of tablet 00:00: mouth 2 [place] 00 (two) Medical times Branch daily with meals. lisinopriL 2019-11 Yes 20mg Take 1 Unive rs (PRINIVIL) 0-06 tablet by ity of 20 mg 00:00: mouth [place] tablet 00 daily. Medical Branch carvediloL 2019-11 Yes [id number] 25mg Take 1 U nivers 25 mg 0-06 tablet by ity of tablet 00:00: mouth 2 [place] 00 (two) Medical times Branch daily with meals. lisinopriL 2019-11 Yes 20mg Take 1 Unive rs (PRINIVIL) 0-06 tablet by ity of 20 mg 00:00: mouth [place] tablet 00 daily. Medical Branch carvediloL 2019-11 Yes [id number] 25mg Take 1 U nivers 25 mg 0-06 tablet by ity of tablet 00:00: mouth 2 [place] 00 (two) Medical times Branch daily with meals. lisinopriL 2019-11 Yes 20mg Take 1 Unive rs (PRINIVIL) 0-06 tablet by ity of 20 mg 00:00: mouth [place] tablet 00 daily. Medical Branch carvediloL 2019-11 Yes [id number] 25mg Take 1 U nivers 25 mg 0-06 tablet by ity of tablet 00:00: mouth 2 [place] 00 (two) Medical times Branch daily with meals. lisinopriL 2019-11 Yes 20mg Take 1 Unive rs (PRINIVIL) 0-06 tablet by ity of 20 mg 00:00: mouth [place] tablet 00 daily. Medical Branch carvediloL 2019-11 Yes [id number] 25mg Take 1 U nivers 25 mg 0-06 tablet by ity of tablet 00:00: mouth 2 [place] 00 (two) Medical times Branch daily with meals. lisinopriL 2019-11 Yes 20mg Take 1 Unive rs (PRINIVIL) 0-06 tablet by ity of 20 mg 00:00: mouth [place] tablet 00 daily. Medical Branch carvediloL 2019-11 Yes [id number] 25mg Take 1 U nivers 25 mg 0-06 tablet by ity of tablet 00:00: mouth 2 [place] 00 (two) Medical times Branch daily with meals. lisinopriL 2019-11 Yes 20mg Take 1 Unive rs (PRINIVIL) 0-06 tablet by ity of 20 mg 00:00: mouth [place] tablet 00 daily. Medical Branch carvediloL 2019-11 Yes [id number] 25mg Take 1 U nivers 25 mg 0-06 tablet by ity of tablet 00:00: mouth 2 [place] 00 (two) Medical times Branch daily with meals. lisinopriL 2019-11 Yes 20mg Take 1 Unive rs (PRINIVIL) 0-06 tablet by ity of 20 mg 00:00: mouth [place] tablet 00 daily. Medical Branch carvediloL 2019-11 Yes [id number] 25mg Take 1 U nivers 25 mg 0-06 tablet by ity of tablet 00:00: mouth 2 [place] 00 (two) Medical times Branch daily with meals. lisinopriL 2019-11 Yes 20mg Take 1 Unive rs (PRINIVIL) 0-06 tablet by ity of 20 mg 00:00: mouth [place] tablet 00 daily. Medical Branch carvediloL 2019-11 Yes [id number] 25mg Take 1 U nivers 25 mg 0-06 tablet by ity of tablet 00:00: mouth 2 [place] (two) Medical times Branch daily with meals. lisinopriL 2019-11 Yes 20mg Take 1 Unive rs (PRINIVIL) 0-06 tablet by ity of 20 mg 00:00: mouth [place] tablet 00 daily. Medical Branch carvediloL 2019-11 Yes [id number] 25mg Take 1 U nivers 25 mg 0-06 tablet by ity of tablet 00:00: mouth 2 [place] (two) Medical times Branch daily with meals. lisinopriL 2019-11 Yes 20mg Take 1 Unive rs (PRINIVIL) 0-06 tablet by ity of 20 mg 00:00: mouth [place] tablet 00 daily. Medical Branch carvediloL 2019-11 Yes [id number] 25mg Take 1 U nivers 25 mg 0-06 tablet by ity of tablet 00:00: mouth 2 [place] 00 (two) Medical times Branch daily with meals. lisinopriL 2019-11 Yes 20mg Take 1 Unive rs (PRINIVIL) 0-06 tablet by ity of 20 mg 00:00: mouth [place] tablet 00 daily. Medical Branch carvediloL 2019-11 Yes [id number] 25mg Take 1 U nivers 25 mg 0-06 tablet by ity of tablet 00:00: mouth 2 [place] (two) Medical times Branch daily with meals. lisinopriL 2019-11 Yes 20mg Take 1 Unive rs (PRINIVIL) 0-06 tablet by ity of 20 mg 00:00: mouth [place] tablet 00 daily. Medical Branch carvediloL 2019-11 Yes [id number] 25mg Take 1 U nivers 25 mg 0-06 tablet by ity of tablet 00:00: mouth 2 [place] 00 (two) Medical times Branch daily with meals. lisinopriL 2019-11 Yes 20mg Take 1 Unive rs (PRINIVIL) 0-06 tablet by ity of 20 mg 00:00: mouth [place] tablet 00 daily. Medical Branch carvediloL 2019-11 Yes [id number] 25mg Take 1 U nivers 25 mg 0-06 tablet by ity of tablet 00:00: mouth 2 [place] 00 (two) Medical times Branch daily with meals. amLODIPine 2019-11 Yes [id number] 10mg Take 1 U nivers 10 mg 0-06 tablet by ity of tablet 00:00: mouth [place] 00 daily. Medical Branch lisinopriL 2019-11 Yes 20mg Take 1 Unive rs (PRINIVIL) 0-06 tablet by ity of 20 mg 00:00: mouth [place] tablet 00 daily. Medical Branch amLODIPine 2019-11 2020- No [id number] 10mg Take 1 [facility] 10 mg 0-06 10-07 tablet by ity of tablet 00:00: 00:00 mouth [place] 00 :00 daily. Medical Branch amLODIPine 2019-11- No [id number] 10mg Take 1 [facility] 10 mg 0-06 10-07 tablet by ity of tablet 00:00: 00:00 mouth [place] 00 :00 daily. Medical Branch cloNIDine 2019- No .1mg 0.1 mg, Univ ers (CATAPRES) 08-14 Oral, ity of tablet 0.1 20:30: 20:06 ONCE, 1 [place] as mg 00 :00 dose, [facility] 08/14/20 at Branch 1530, STAT hydralAZINE 2019- No 10mg 10 mg, Uni vers (APRESOLINE 08-14 Slow IV ity of ) injection 19:15: 19:05 [place] 10 mg 00 :00 ONCE, 1 Medical dose, [facility] 08/14/20 at 1415, STAT
In dication: [facility] ve [facility] furosemide 2019- No 40mg 40 mg, IV U nivers (LASIX) 08-14 Push, ity of injection 19:15: 19:06 ONCE, 1 [place] 40 mg 00 :00 dose, [facility] 08/14/20 at Branch 1415, DERICK furosemide 2020- No [id number] 40mg Take 1 [facility] (LASIX) 40 9-30 10-15 tablet by ity of mg tablet 00:00: 04:59 mouth 2 [place] 00 :[place] (two) Medical times [place] daily for 14 days. furosemide 2020- No [id number] 40mg Take 1 [facility] (LASIX) 40 9-30 10-15 tablet by ity of mg tablet 00:00: 04:59 mouth 2 [place] 00 :[place] (two) Medical times [place] daily for 14 days. furosemide 2020-0 2020- No [id number] 40mg Take 1 [facility] (LASIX) 40 9-30 10-15 tablet by ity of mg tablet 00:00: 04:59 mouth 2 [place] 00 :00 (two) Medical times Branch daily for 14 days. furosemide 2019-0 2020- No [id number] 40mg Take 1 [facility] (LASIX) 40 9-30 10-15 tablet by ity of mg tablet 00:00: 04:59 mouth 2 [place] 00 :00 (two) Medical times Branch daily for 14 days. furosemide 2019-0 2020- No [id number] 40mg Take 1 [facility] (LASIX) 40 9-30 10-15 tablet by ity of mg tablet 00:00: 04:59 mouth 2 [place] 00 :[place] (two) Medical times Branch daily for 14 days. carvediloL 2019-0 2020- No [id number] 25mg Take 1 [facility] 25 mg 9-30 09-30 tablet by ity of tablet 00:00: 00:00 mouth 2 [place] 00 :00 (two) Medical times Branch daily with meals for 30 days. carvediloL 2019-0 2020- No [id number] 25mg Take 2 [facility] 12.5 mg 9-30 09-30 tablets by ity o f tablet 00:00: 00:00 mouth 2 [place] 00 :00 (two) Medical times Branch daily with meals. aspirin 81 2020-0 Yes [id number] 81mg Take 1 U nivers mg chewable 9-15 tablet by ity of tablet 00:00: mouth [place] 00 daily. Medical Branch aspirin 81 2020-0 Yes [id number] 81mg Take 1 U nivers mg chewable 9-15 tablet by ity of tablet 00:00: mouth [place] 00 daily. Medical Branch aspirin 81 2020-0 Yes [id number] 81mg Take 1 U nivers mg chewable 9-15 tablet by ity of tablet 00:00: mouth [place] 00 daily. Medical Branch aspirin 81 2020-0 Yes [id number] 81mg Take 1 U nivers mg chewable 9-15 tablet by ity of tablet 00:00: mouth [place] 00 daily. Medical Branch aspirin 81 2020-0 Yes [id number] 81mg Take 1 U nivers mg chewable 9-15 tablet by ity of tablet 00:00: mouth [place] 00 daily. Medical Branch aspirin 81 2020-0 Yes [id number] 81mg Take 1 U nivers mg chewable 9-15 tablet by ity of tablet 00:00: mouth [place] 00 daily. Medical Branch aspirin 81 2020-0 Yes [id number] 81mg Take 1 U nivers mg chewable 9-15 tablet by ity of tablet 00:00: mouth [place] 00 daily. Medical Branch aspirin 81 2020-0 Yes [id number] 81mg Take 1 U nivers mg chewable 9-15 tablet by ity of tablet 00:00: mouth [place] 00 daily. Medical Branch aspirin 81 2020-0 Yes [id number] 81mg Take 1 U nivers mg chewable 9-15 tablet by ity of tablet 00:00: mouth [place] 00 daily. Medical Branch aspirin 81 2020-0 Yes [id number] 81mg Take 1 U nivers mg chewable 9-15 tablet by ity of tablet 00:00: mouth [place] 00 daily. Medical Branch aspirin 81 2020-0 Yes [id number] 81mg Take 1 U nivers mg chewable 9-15 tablet by ity of tablet 00:00: mouth [place] 00 daily. Medical Branch aspirin 81 2020-0 Yes [id number] 81mg Take 1 U nivers mg chewable 9-15 tablet by ity of tablet 00:00: mouth [place] 00 daily. Medical Branch aspirin 81 2020-0 Yes [id number] 81mg Take 1 U nivers mg chewable 9-15 tablet by ity of tablet 00:00: mouth [place] 00 daily. Medical Branch aspirin 81 2020-0 Yes [id number] 81mg Take 1 U nivers mg chewable 9-15 tablet by ity of tablet 00:00: mouth [place] 00 daily. Medical Branch aspirin 81 2020-0 Yes [id number] 81mg Take 1 U nivers mg chewable 9-15 tablet by ity of tablet 00:00: mouth [place] 00 daily. Medical Branch aspirin 81 2020-0 Yes [id number] 81mg Take 1 U nivers mg chewable 9-15 tablet by ity of tablet 00:00: mouth [place] 00 daily. Medical Branch aspirin 81 2020-0 Yes [id number] 81mg Take 1 U nivers mg chewable 9-15 tablet by ity of tablet 00:00: mouth [place] 00 daily. Medical Branch aspirin 81 2020-0 Yes [id number] 81mg Take 1 U nivers mg chewable 9-15 tablet by ity of tablet 00:00: mouth [place] 00 daily. Medical Branch aspirin 81 2020-0 Yes [id number] 81mg Take 1 U nivers mg chewable 9-15 tablet by ity of tablet 00:00: mouth [place] 00 daily. Medical Branch aspirin 81 2020-0 Yes [id number] 81mg Take 1 U nivers mg chewable 9-15 tablet by ity of tablet 00:00: mouth [place] 00 daily. Medical Branch aspirin 81 2020-0 Yes [id number] 81mg Take 1 U nivers mg chewable [...] by mouth ity of tablet 21:17: daily. [place] [address] Medical Branch atorvastati 2020-0 Yes 40mg Take 40 mg [facility] n 40 mg 9-14 by mouth ity of tablet 21:17: at [place] [address] bedtime. Medical Branch allopurinoL 2020-0 Yes 300mg Take 300 U nivers 100 mg 9-14 mg by ity of tablet 21:17: mouth [place] 49 daily. Medical Branch glipiZIDE 2020-0 Yes 10mg Take 10 mg Un sparkle 10 mg 9-14 by mouth ity of tablet 21:17: daily. [place] [address] Medical Branch metformin 2020-0 Yes 500mg Take 500 Uni vers ER 500 mg 9-14 mg by ity of 24 hr 21:17: mouth [place] tablet 49 daily with Medical breakfast. Branch fenofibrate 2020-0 Yes 54mg Take 54 mg [facility] 54 mg 9-14 by mouth ity of tablet 21:17: daily. [place] [address] Medical Branch atorvastati 2020-0 Yes 40mg Take 40 mg [facility] n 40 mg 9-14 by mouth ity of tablet 21:17: at [place] [address] bedtime. Medical Branch allopurinoL 2020-0 Yes 300mg Take 300 U nivers 100 mg 9-14 mg by ity of tablet 21:17: mouth [place] 49 daily. Medical Branch glipiZIDE 2020-0 Yes 10mg Take 10 mg Un sparkle 10 mg 9-14 by mouth ity of tablet 21:17: daily. [place] [address] Medical Branch carvediloL 2020-0 Yes [id number] 12.5mg Take 1 [facility] 12.5 mg 9-14 tablet by ity of tablet 00:00: mouth 2 [place] 00 (two) Medical times Branch daily with meals. carvediloL 2020- No [id number] 12.5mg Take 1 [facility] 12.5 mg 9 09-30 tablet by ity of tablet 00:00: 00:00 mouth 2 [place] 00 :00 (two) Medical times Branch daily with meals. allopurinol 2017- No 1mg 300 mg 0-11 tablet 00:00: 00 amlodipine 2017- No 1mg 10 mg 0-11 tablet 00:00: 00 glipizide 5 2017-11 No 1mg mg tablet 0-11 00:00: 00 fenofibrate 2017- No 1mg 54 mg 0-11 tablet 00:00: 00 atorvastati 2017-11 No 1mg n 40 mg 0-11 tablet 00:00: 00 allopurinol 2017-11 No 1mg 300 mg 0-11 tablet 00:00: 00 amlodipine 2017- No 1mg 10 mg 0-11 tablet 00:00: 00 glipizide 5 2017-11 No 1mg mg tablet 0-11 00:00: 00 fenofibrate 2017- No 1mg 54 mg 0-11 tablet 00:00: 00 atorvastati 2017-11 No 1mg n 40 mg 0-11 tablet 00:00: 00 allopurinol 2017- No 1mg 300 mg 0-11 tablet 00:00: 00 amlodipine 2017- No 1mg 10 mg 0-11 tablet 00:00: 00 glipizide 5 2017-11 No 1mg mg tablet 0-11 00:00: 00 fenofibrate 2017- No 1mg 54 mg 0-11 tablet 00:00: 00 atorvastati 2017- No 1mg n 40 mg 0-11 tablet 00:00: 00 allopurinol 2017- No 1mg 300 mg 0-11 tablet 00:00: 00 amlodipine 2017- No 1mg 10 mg 0-11 tablet 00:00: 00 glipizide 5 2017- No 1mg mg tablet 0-11 00:00: 00 fenofibrate 2017- No 1mg 54 mg 0-11 tablet 00:00: 00 atorvastati 2017- No 1mg n 40 mg 0-11 tablet 00:00: 00 allopurinol 2017- No 1mg 300 mg 0-11 tablet 00:00: 00 amlodipine 2017- No 1mg 10 mg 0-11 tablet 00:00: 00 glipizide 5 2017- No 1mg mg tablet 0-11 00:00: 00 fenofibrate 2017- No 1mg 54 mg 0-11 tablet 00:00: 00 atorvastati 2017- No 1mg n 40 mg 0-11 tablet 00:00: 00 allopurinol 2018- No 1mg 300 mg 0-11 tablet 00:00: 00 amlodipine 2017- No 1mg 10 mg 0-11 tablet 00:00: 00 glipizide 5 2017- No 1mg mg tablet 0-11 00:00: 00 fenofibrate 2017- No 1mg 54 mg 0-11 tablet 00:00: 00 atorvastati 2017- No 1mg n 40 mg 0-11 tablet 00:00: 00 allopurinol 2017- No 1mg 300 mg 0-11 tablet 00:00: 00 amlodipine 2017- No 1mg 10 mg 0-11 tablet 00:00: 00 glipizide 5 2017- No 1mg mg tablet 0-11 00:00: 00 fenofibrate 2017- No 1mg 54 mg 0-11 tablet 00:00: 00 atorvastati 2017- No 1mg n 40 mg 0-11 tablet 00:00: 00 allopurinol 2017- No 1mg 300 mg 0-11 tablet 00:00: 00 amlodipine 2017- No 1mg 10 mg 0-11 tablet 00:00: 00 glipizide 5 2017- No 1mg mg tablet 0-11 00:00: 00 fenofibrate 2017- No 1mg 54 mg 0-11 tablet 00:00: 00 atorvastati 2017- No 1mg n 40 mg 0-11 tablet 00:00: 00 lisinopril 2017- No 2mg 20 0-10 mg-hydrochl 00:00: orothiazide 00 12.5 mg tablet metformin 2017- No 1mg ER 500 mg 0-10 24 hr 00:00: tablet,exte 00 nded release lisinopril 2017- No 2mg 20 0-10 mg-hydrochl 00:00: orothiazide 00 12.5 mg tablet metformin 2017- No 1mg ER 500 mg 0-10 24 hr 00:00: tablet,exte 00 nded release lisinopril 2017- No 2mg 20 0-10 mg-hydrochl 00:00: orothiazide 00 12.5 mg tablet metformin 2017-1 No 1mg ER 500 mg 0-10 24 hr 00:00: tablet,exte 00 nded release lisinopril 2017- No 2mg 20 0-10 mg-hydrochl 00:00: orothiazide 00 12.5 mg tablet metformin 2017-1 No 1mg ER 500 mg 0-10 24 hr 00:00: tablet,exte 00 nded release lisinopril 2017- No 2mg 20 0-10 mg-hydrochl 00:00: orothiazide 00 12.5 mg tablet metformin 2017-1 No 1mg ER 500 mg 0-10 24 hr 00:00: tablet,exte 00 nded release lisinopril 2017- No 2mg 20 0-10 mg-hydrochl 00:00: orothiazide 00 12.5 mg tablet metformin 2017-1 No 1mg ER 500 mg 0-10 24 hr 00:00: tablet,exte 00 nded release lisinopril 2017- No 2mg 20 0-10 mg-hydrochl 00:00: orothiazide 00 12.5 mg tablet metformin 2017-1 No 1mg ER 500 mg 0-10 24 hr 00:00: tablet,exte 00 nded release lisinopril 2017- No 2mg 20 0-10 mg-hydrochl 00:00: orothiazide 00 12.5 mg tablet metformin 2017-1 No 1mg ER 500 mg 0-10 24 hr 00:00: tablet,exte 00 nded release lisinopril 2018-0 No 2mg 20 4-30 mg-hydrochl 00:00: orothiazide 00 12.5 mg tablet glipizide 5 2018-0 No 1mg mg tablet 4-30 00:00: 00 amlodipine 2018-0 No 1mg 10 mg 4-30 tablet 00:00: 00 allopurinol 2018-0 No 1mg 300 mg 4-30 tablet 00:00: 00 lisinopril 2018-0 No 2mg 20 4-30 mg-hydrochl 00:00: orothiazide 00 12.5 mg tablet glipizide 5 2018-0 No 1mg mg tablet 4-30 00:00: 00 amlodipine 2018-0 No 1mg 10 mg 4-30 tablet 00:00: 00 allopurinol 2018-0 No 1mg 300 mg 4-30 tablet 00:00: 00 lisinopril 2018-0 No 2mg 20 4-30 mg-hydrochl 00:00: orothiazide 00 12.5 mg tablet glipizide 5 2018-0 No 1mg mg tablet 4-30 00:00: 00 amlodipine 2018-0 No 1mg 10 mg 4-30 tablet 00:00: 00 allopurinol 2018-0 No 1mg 300 mg 4-30 tablet 00:00: 00 lisinopril 2018-0 No 2mg 20 4-30 mg-hydrochl 00:00: orothiazide 00 12.5 mg tablet glipizide 5 2018-0 No 1mg mg tablet 4-30 00:00: 00 amlodipine 2018-0 No 1mg 10 mg 4-30 tablet 00:00: 00 allopurinol 2018-0 No 1mg 300 mg 4-30 tablet 00:00: 00 lisinopril 2018-0 No 2mg 20 4-30 mg-hydrochl 00:00: orothiazide 00 12.5 mg tablet glipizide 5 2018-0 No 1mg mg tablet 4-30 00:00: 00 amlodipine 2018-0 No 1mg 10 mg 4-30 tablet 00:00: 00 lisinopril 2018-0 No 2mg 20 4-30 mg-hydrochl 00:00: orothiazide 00 12.5 mg tablet glipizide 5 2018-0 No 1mg mg tablet 4-30 00:00: 00 amlodipine 2018-0 No 1mg 10 mg 4-30 tablet 00:00: 00 allopurinol 2018-0 No 1mg 300 mg 4-30 tablet 00:00: 00 allopurinol 2018-0 No 1mg 300 mg 4-30 tablet 00:00: 00 lisinopril 2018-0 No 2mg 20 4-30 mg-hydrochl 00:00: orothiazide 00 12.5 mg tablet glipizide 5 2018-0 No 1mg mg tablet 4-30 00:00: 00 amlodipine 2018-0 No 1mg 10 mg 4-30 tablet 00:00: 00 allopurinol 2018-0 No 1mg 300 mg 4-30 tablet 00:00: 00 lisinopril 2018-0 No 2mg 20 4-30 mg-hydrochl 00:00: orothiazide 00 12.5 mg tablet glipizide 5 2018-0 No 1mg mg tablet 4-30 00:00: 00 amlodipine 2018-0 No 1mg 10 mg 4-30 tablet 00:00: 00 allopurinol 2018-0 No 1mg 300 mg 4-30 tablet 00:00: 00 amlodipine 2018-0 No 1mg 10 mg 2-12 tablet 00:00: 00 glipizide 5 2018-0 No 1mg mg tablet 2-12 00:00: 00 lisinopril 2018-0 No 2mg 20 2-12 mg-hydrochl 00:00: orothiazide 00 12.5 mg tablet amlodipine 2018-0 No 1mg 10 mg 2-12 tablet 00:00: 00 glipizide 5 2018-0 No 1mg mg tablet 2-12 00:00: 00 lisinopril 2018-0 No 2mg 20 2-12 mg-hydrochl 00:00: orothiazide 00 12.5 mg tablet amlodipine 2018-0 No 1mg 10 mg 2-12 tablet 00:00: 00 glipizide 5 2018-0 No 1mg mg tablet 2-12 00:00: 00 lisinopril 2018-0 No 2mg 20 2-12 mg-hydrochl 00:00: orothiazide 00 12.5 mg tablet amlodipine 2018-0 No 1mg 10 mg 2-12 tablet 00:00: 00 glipizide 5 2018-0 No 1mg mg tablet 2-12 00:00: 00 lisinopril 2018-0 No 2mg 20 2-12 mg-hydrochl 00:00: orothiazide 00 12.5 mg tablet amlodipine 2018-0 No 1mg 10 mg 2-12 tablet 00:00: 00 glipizide 5 2018-0 No 1mg mg tablet 2-12 00:00: 00 lisinopril 2018-0 No 2mg 20 2-12 mg-hydrochl 00:00: orothiazide 00 12.5 mg tablet amlodipine 2018-0 No 1mg 10 mg 2-12 tablet 00:00: 00 glipizide 5 2018-0 No 1mg mg tablet 2-12 00:00: 00 lisinopril 2018-0 No 2mg 20 2-12 mg-hydrochl 00:00: orothiazide 00 12.5 mg tablet amlodipine 2018-0 No 1mg 10 mg 2-12 tablet 00:00: 00 glipizide 5 2018-0 No 1mg mg tablet 2-12 00:00: 00 lisinopril 2018-0 No 2mg 20 2-12 mg-hydrochl 00:00: orothiazide 00 12.5 mg tablet amlodipine 2018-0 No 1mg 10 mg 2-12 tablet 00:00: 00 glipizide 5 2018-0 No 1mg mg tablet 2-12 00:00: 00 lisinopril 2018-0 No 2mg 20 2-12 mg-hydrochl 00:00: orothiazide 00 12.5 mg tablet allopurinol 2018-0 No 1mg 100 mg 1-24 tablet 00:00: 00 allopurinol 2018-0 No 1mg 100 mg 1-24 tablet 00:00: 00 allopurinol 2018-0 No 1mg 100 mg 1-24 tablet 00:00: 00 allopurinol 2018-0 No 1mg 100 mg 1-24 tablet 00:00: 00 allopurinol 2018-0 No 1mg 100 mg 1-24 tablet 00:00: 00 allopurinol 2018-0 No 1mg 100 mg 1-24 tablet 00:00: 00 allopurinol 2018-0 No 1mg 100 mg 1-24 tablet 00:00: 00 allopurinol 2018-0 No 1mg 100 mg 1-24 tablet 00:00: 00 colchicine 2018-0 No 1mg 0.6 mg 1-17 capsule 00:00: 00 colchicine 2018-0 No 1mg 0.6 mg 1-17 capsule 00:00: 00 colchicine 2018-0 No 1mg 0.6 mg 1-17 capsule 00:00: 00 colchicine 2018-0 No 1mg 0.6 mg 1-17 capsule 00:00: 00 colchicine 2018-0 No 1mg 0.6 mg 1-17 capsule 00:00: 00 colchicine 2018-0 No 1mg 0.6 mg 1-17 capsule 00:00: 00 colchicine 2018-0 No 1mg 0.6 mg 1-17 capsule 00:00: 00 colchicine 2018-0 No 1mg 0.6 mg 1-17 capsule 00:00: 00 glipizide 5 2017-1 No 1mg mg tablet 2-13 00:00: 00 simvastatin 2017-1 No 1mg 40 mg 2-13 tablet 00:00: 00 glipizide 5 2016- No 1mg mg tablet 2-13 00:00: 00 simvastatin 2016- No 1mg 40 mg 2-13 tablet 00:00: 00 glipizide 5 2016- No 1mg mg tablet 2-13 00:00: 00 simvastatin 2016- No 1mg 40 mg 2-13 tablet 00:00: 00 glipizide 5 2016- No 1mg mg tablet 2-13 00:00: 00 simvastatin 2016- No 1mg 40 mg 2-13 tablet 00:00: 00 glipizide 5 2016- No 1mg mg tablet 2-13 00:00: 00 simvastatin 2016- No 1mg 40 mg 2-13 tablet 00:00: 00 glipizide 5 2016- No 1mg mg tablet 2-13 00:00: 00 simvastatin 2016- No 1mg 40 mg 2-13 tablet 00:00: 00 glipizide 5 2016- No 1mg mg tablet 2- 00:00: 00 simvastatin 2016- No 1mg 40 mg 2-13 tablet 00:00: 00 glipizide 5 2016- No 1mg mg tablet 2-13 00:00: 00 simvastatin 2016- No 1mg 40 mg 2-13 tablet 00:00: 00 lisinopril 2016-11 No 2mg 20 2-11 mg-hydrochl 00:00: orothiazide 00 12.5 mg tablet lisinopril 2016-11 No 2mg 20 2-11 mg-hydrochl 00:00: orothiazide 00 12.5 mg tablet lisinopril 2016-11 No 2mg 20 2-11 mg-hydrochl 00:00: orothiazide 00 12.5 mg tablet lisinopril 2016-11 No 2mg 20 2-11 mg-hydrochl 00:00: orothiazide 00 12.5 mg tablet lisinopril 2016-11 No 2mg 20 2-11 mg-hydrochl 00:00: orothiazide 00 12.5 mg tablet lisinopril 2016-11 No 2mg 20 2-11 mg-hydrochl 00:00: orothiazide 00 12.5 mg tablet lisinopril 2016-11 No 2mg 20 2-11 mg-hydrochl 00:00: orothiazide 00 12.5 mg tablet lisinopril 2016-1 No 2mg 20 2-11 mg-hydrochl 00:00: orothiazide 00 12.5 mg tablet lisinopril 2016-1 No 1mg 20 2-08 mg-hydrochl 00:00: orothiazide 00 12.5 mg tablet lisinopril 2016-1 No 1mg 20 2-08 mg-hydrochl 00:00: orothiazide 00 12.5 mg tablet lisinopril 2016- No 1mg 20 2-08 mg-hydrochl 00:00: orothiazide 00 12.5 mg tablet lisinopril 2016- No 1mg 20 2-08 mg-hydrochl 00:00: orothiazide 00 12.5 mg tablet lisinopril 2016- No 1mg 20 2-08 mg-hydrochl 00:00: orothiazide 00 12.5 mg tablet lisinopril 2016- No 1mg 20 2-08 mg-hydrochl 00:00: orothiazide 00 12.5 mg tablet lisinopril 2016- No 1mg 20 2-08 mg-hydrochl 00:00: orothiazide 00 12.5 mg tablet lisinopril 2016- No 1mg 20 2-08 mg-hydrochl 00:00: orothiazide 00 12.5 mg tablet lisinopril 2016-0 No 1mg 20 5-24 mg-hydrochl 00:00: orothiazide 00 12.5 mg tablet pravastatin 2017-0 No 1mg 40 mg 5-24 tablet 00:00: 00 metformin 2017-0 No 1mg 500 mg 5-24 tablet 00:00: 00 lisinopril 2017-0 No 1mg 20 5-24 mg-hydrochl 00:00: orothiazide 00 12.5 mg tablet pravastatin 2017-0 No 1mg 40 mg 5-24 tablet 00:00: 00 metformin 2017-0 No 1mg 500 mg 5-24 tablet 00:00: 00 lisinopril 2017-0 No 1mg 20 5-24 mg-hydrochl 00:00: orothiazide 00 12.5 mg tablet pravastatin 2017-0 No 1mg 40 mg 5-24 tablet 00:00: 00 metformin 2017-0 No 1mg 500 mg 5-24 tablet 00:00: 00 lisinopril 2017-0 No 1mg 20 5-24 mg-hydrochl 00:00: orothiazide 00 12.5 mg tablet pravastatin 2017-0 No 1mg 40 mg 5-24 tablet 00:00: 00 metformin 2017-0 No 1mg 500 mg 5-24 tablet 00:00: 00 lisinopril 2017-0 No 1mg 20 5-24 mg-hydrochl 00:00: orothiazide 00 12.5 mg tablet pravastatin 2017-0 No 1mg 40 mg 5-24 tablet 00:00: 00 metformin 2017-0 No 1mg 500 mg 5-24 tablet 00:00: 00 lisinopril 2017-0 No 1mg 20 5-24 mg-hydrochl 00:00: orothiazide 00 12.5 mg tablet pravastatin 2017-0 No 1mg 40 mg 5-24 tablet 00:00: 00 metformin 2017-0 No 1mg 500 mg 5-24 tablet 00:00: 00 lisinopril 2017-0 No 1mg 20 5-24 mg-hydrochl 00:00: orothiazide 00 12.5 mg tablet pravastatin 2017-0 No 1mg 40 mg 5-24 tablet 00:00: 00 metformin 2017-0 No 1mg 500 mg 5-24 tablet 00:00: 00 lisinopril 2017-0 No 1mg 20 5-24 mg-hydrochl 00:00: orothiazide 00 12.5 mg tablet pravastatin 2017-0 No 1mg 40 mg 5-24 tablet 00:00: 00 metformin 2017-0 No 1mg 500 mg 5-24 tablet 00:00: 00 lisinopril 2017-0 No 1mg 20 5-23 mg-hydrochl 00:00: orothiazide 00 12.5 mg tablet metformin 2017-0 No 1mg 500 mg 5-23 tablet 00:00: 00 metformin 2017-0 No 1mg 500 mg 5-23 tablet 00:00: 00 lisinopril 2017-0 No 1mg 20 5-23 mg-hydrochl 00:00: orothiazide 00 12.5 mg tablet metformin 2017-0 No 1mg 500 mg 5-23 tablet 00:00: 00 metformin 2017-0 No 1mg 500 mg 5-23 tablet 00:00: 00 lisinopril 2017-0 No 1mg 20 5-23 mg-hydrochl 00:00: orothiazide 00 12.5 mg tablet metformin 2017-0 No 1mg 500 mg 5-23 tablet 00:00: 00 metformin 2017-0 No 1mg 500 mg 5-23 tablet 00:00: 00 lisinopril 2017-0 No 1mg 20 5-23 mg-hydrochl 00:00: orothiazide 00 12.5 mg tablet metformin 2017-0 No 1mg 500 mg 5-23 tablet 00:00: 00 metformin 2017-0 No 1mg 500 mg 5-23 tablet 00:00: 00 lisinopril 2017-0 No 1mg 20 5-23 mg-hydrochl 00:00: orothiazide 00 12.5 mg tablet metformin 2017-0 No 1mg 500 mg 5-23 tablet 00:00: 00 metformin 2017-0 No 1mg 500 mg 5-23 tablet 00:00: 00 lisinopril 2017-0 No 1mg 20 5-23 mg-hydrochl 00:00: orothiazide 00 12.5 mg tablet metformin 2017-0 No 1mg 500 mg 5-23 tablet 00:00: 00 metformin 2017-0 No 1mg 500 mg 5-23 tablet 00:00: 00 lisinopril 2017-0 No 1mg 20 5-23 mg-hydrochl 00:00: orothiazide 00 12.5 mg tablet metformin 2017-0 No 1mg 500 mg 5-23 tablet 00:00: 00 metformin 2017-0 No 1mg 500 mg 5-23 tablet 00:00: 00 lisinopril 2017-0 No 1mg 20 5-23 mg-hydrochl 00:00: orothiazide 00 12.5 mg tablet metformin 2017-0 No 1mg 500 mg 5-23 tablet 00:00: 00 metformin 2017-0 No 1mg 500 mg 5-23 tablet 00:00: 00 lisinopril 2017-0 No 1mg 20 4-21 mg-hydrochl 00:00: orothiazide 00 12.5 mg tablet pravastatin 2017-0 No 1mg 40 mg 4-21 tablet 00:00: 00 metformin 2017-0 No 1mg 500 mg 4-21 tablet 00:00: 00 lisinopril 2017-0 No 1mg 20 4-21 mg-hydrochl 00:00: orothiazide 00 12.5 mg tablet pravastatin 2017-0 No 1mg 40 mg 4-21 tablet 00:00: 00 metformin 2017-0 No 1mg 500 mg 4-21 tablet 00:00: 00 lisinopril 2017-0 No 1mg 20 4-21 mg-hydrochl 00:00: orothiazide 00 12.5 mg tablet pravastatin 2017-0 No 1mg 40 mg 4-21 tablet 00:00: 00 metformin 2017-0 No 1mg 500 mg 4-21 tablet 00:00: 00 lisinopril 2017-0 No 1mg 20 4-21 mg-hydrochl 00:00: orothiazide 00 12.5 mg tablet pravastatin 2017-0 No 1mg 40 mg 4-21 tablet 00:00: 00 metformin 2017-0 No 1mg 500 mg 4-21 tablet 00:00: 00 lisinopril 2017-0 No 1mg 20 4-21 mg-hydrochl 00:00: orothiazide 00 12.5 mg tablet pravastatin 2017-0 No 1mg 40 mg 4-21 tablet 00:00: 00 metformin 2017-0 No 1mg 500 mg 4-21 tablet 00:00: 00 lisinopril 2017-0 No 1mg 20 4-21 mg-hydrochl 00:00: orothiazide 00 12.5 mg tablet pravastatin 2017-0 No 1mg 40 mg 4-21 tablet 00:00: 00 metformin 2017-0 No 1mg 500 mg 4-21 tablet 00:00: 00 lisinopril 2017-0 No 1mg 20 4-21 mg-hydrochl 00:00: orothiazide 00 12.5 mg tablet pravastatin 2017-0 No 1mg 40 mg 4-21 tablet 00:00: 00 metformin 2017-0 No 1mg 500 mg 4-21 tablet 00:00: 00 lisinopril 2017-0 No 1mg 20 4-21 mg-hydrochl 00:00: orothiazide 00 12.5 mg tablet pravastatin 2017-0 No 1mg 40 mg 4-21 tablet 00:00: 00 metformin 2017-0 No 1mg 500 mg 4-21 tablet 00:00: 00 cyclobenzap 2017-0 No 1mg rine 10 mg 1-26 tablet 00:00: 00 amlodipine 2017-0 No 1mg 10 mg 1-26 tablet 00:00: 00 cyclobenzap 2017-0 No 1mg rine 10 mg 1-26 tablet 00:00: 00 amlodipine 2017-0 No 1mg 10 mg 1-26 tablet 00:00: 00 cyclobenzap 2017-0 No 1mg rine 10 mg 1-26 tablet 00:00: 00 amlodipine 2017-0 No 1mg 10 mg 1-26 tablet 00:00: 00 cyclobenzap 2017-0 No 1mg rine 10 mg 1-26 tablet 00:00: 00 amlodipine 2017-0 No 1mg 10 mg 1-26 tablet 00:00: 00 cyclobenzap 2017-0 No 1mg rine 10 mg 1-26 tablet 00:00: 00 amlodipine 2017-0 No 1mg 10 mg 1-26 tablet 00:00: 00 cyclobenzap 2017-0 No 1mg rine 10 mg 1-26 tablet 00:00: 00 amlodipine 2017-0 No 1mg 10 mg 1-26 tablet 00:00: 00 cyclobenzap 2017-0 No 1mg rine 10 mg 1-26 tablet 00:00: 00 amlodipine 2017-0 No 1mg 10 mg 1-26 tablet 00:00: 00 cyclobenzap 2017-0 No 1mg rine 10 mg 1-26 tablet 00:00: 00 amlodipine 2017-0 No 1mg 10 mg 1-26 tablet 00:00: 00 metformin 2015-1 No 1mg 500 mg 1-08 tablet 00:00: 00 metformin 2015-1 No 1mg 500 mg 1-08 tablet 00:00: 00 metformin 2015-1 No 1mg 500 mg 1-08 tablet 00:00: 00 metformin 2015-1 No 1mg 500 mg 1-08 tablet 00:00: 00 metformin 2015-1 No 1mg 500 mg 1-08 tablet 00:00: 00 metformin 2015-1 No 1mg 500 mg 1-08 tablet 00:00: 00 metformin 2015-1 No 1mg 500 mg 1-08 tablet 00:00: 00 metformin 2015-1 No 1mg 500 mg 1-08 tablet 00:00: 00 lisinopril 2015- No 1mg 20 1-04 mg-hydrochl 00:00: orothiazide 00 12.5 mg tablet pravastatin 2015- No 1mg 40 mg 1-04 tablet 00:00: 00 lisinopril 2015- No 1mg 20 1-04 mg-hydrochl 00:00: orothiazide 00 12.5 mg tablet pravastatin 2015- No 1mg 40 mg 1-04 tablet 00:00: 00 lisinopril 2015- No 1mg 20 1-04 mg-hydrochl 00:00: orothiazide 00 12.5 mg tablet pravastatin 2015-1 No 1mg 40 mg 1-04 tablet 00:00: 00 lisinopril 2015-1 No 1mg 20 1-04 mg-hydrochl 00:00: orothiazide 00 12.5 mg tablet pravastatin 2015-1 No 1mg 40 mg 1-04 tablet 00:00: 00 lisinopril 2015-1 No 1mg 20 1-04 mg-hydrochl 00:00: orothiazide 00 12.5 mg tablet pravastatin 2015- No 1mg 40 mg 1-04 tablet 00:00: 00 lisinopril 2015-1 No 1mg 20 1-04 mg-hydrochl 00:00: orothiazide 00 12.5 mg tablet pravastatin 2015- No 1mg 40 mg 1-04 tablet 00:00: 00 lisinopril 2015- No 1mg 20 1-04 mg-hydrochl 00:00: orothiazide 00 12.5 mg tablet pravastatin 2015- No 1mg 40 mg 1-04 tablet 00:00: 00 lisinopril 2015-1 No 1mg 20 1-04 mg-hydrochl 00:00: orothiazide 00 12.5 mg tablet pravastatin 2015- No 1mg 40 mg 1-04 tablet 00:00: 00 lisinopril 2015-0 No 1mg 20 6-25 mg-hydrochl 00:00: orothiazide 00 12.5 mg tablet lisinopril 2015-0 No 1mg 20 6-25 mg-hydrochl 00:00: orothiazide 00 12.5 mg tablet lisinopril 2015-0 No 1mg 20 6-25 mg-hydrochl 00:00: orothiazide 00 12.5 mg tablet lisinopril 2015-0 No 1mg 20 6-25 mg-hydrochl 00:00: orothiazide 00 12.5 mg tablet lisinopril 2015-0 No 1mg 20 6-25 mg-hydrochl 00:00: orothiazide 00 12.5 mg tablet lisinopril 2015-0 No 1mg 20 6-25 mg-hydrochl 00:00: orothiazide 00 12.5 mg tablet lisinopril 2015-0 No 1mg 20 6-25 mg-hydrochl 00:00: orothiazide 00 12.5 mg tablet lisinopril 2016-0 No 1mg 20 6-25 mg-hydrochl 00:00: orothiazide 00 12.5 mg tablet pravastatin 2016-0 No 1mg 40 mg 4-25 tablet 00:00: 00 amlodipine 2016-0 No 1mg 5 mg tablet 4-25 00:00: 00 pravastatin 2016-0 No 1mg 40 mg 4-25 tablet 00:00: 00 amlodipine 2016-0 No 1mg 5 mg tablet 4-25 00:00: 00 pravastatin 2016-0 No 1mg 40 mg 4-25 tablet 00:00: 00 amlodipine 2016-0 No 1mg 5 mg tablet 4-25 00:00: 00 pravastatin 2016-0 No 1mg 40 mg 4-25 tablet 00:00: 00 amlodipine 2016-0 No 1mg 5 mg tablet 4-25 00:00: 00 pravastatin 2016-0 No 1mg 40 mg 4-25 tablet 00:00: 00 amlodipine 2016-0 No 1mg 5 mg tablet 4-25 00:00: 00 pravastatin 2016-0 No 1mg 40 mg 4-25 tablet 00:00: 00 amlodipine 2016-0 No 1mg 5 mg tablet 4-25 00:00: 00 pravastatin 2016-0 No 1mg 40 mg 4-25 tablet 00:00: 00 amlodipine 2016-0 No 1mg 5 mg tablet 4-25 00:00: 00 pravastatin 2016-0 No 1mg 40 mg 4-25 tablet 00:00: 00 amlodipine 2016-0 No 1mg 5 mg tablet 4-25 00:00: 00 Immunizations Ordered Immunization Filled Immunization Date Status Commen ts Source Name Name Jocelyndorie COVID-19 2021-11-05 Completed Vaccine 00:00:00 Moderna COVID-19 2021-11-05 Completed Vaccine 00:00:00 Moderna COVID-19 2021-11-05 Completed Vaccine 00:00:00 Moderna COVID-19 2021-11-05 Completed Vaccine 00:00:00 Moderna COVID-19 2021-11-05 Completed Vaccine 00:00:00 Moderna COVID-19 2021-11-05 Completed Vaccine 00:00:00 Moderna COVID-19 2021-11-05 Completed Vaccine 00:00:00 Jocelyna COVID-19 2021-11-05 Completed Vaccine 00:00:00 Rai COVID-19 2021-01-31 Completed Vaccine 00:00:00 Rai COVID-19 2021-01-31 Completed Vaccine 00:00:00 Rai COVID-19 2021-01-31 Completed Vaccine 00:00:00 Rai COVID-19 2021-01-31 Completed Vaccine 00:00:00 Rai COVID-19 2021-01-31 Completed Vaccine 00:00:00 Rai COVID-19 2021-01-31 Completed Vaccine 00:00:00 Rai COVID-19 2021-01-31 Completed Vaccine 00:00:00 Rai COVID-19 2021-01-31 Completed Vaccine 00:00:00 Vital Signs Vital Name Observation Time Observation Value Comments Source Systolic blood 2020-10-02 17:45:00 125 mm[Hg] [facility] Diastolic blood 2020-10-02 17:45:00 81 mm[Hg] [facility] Heart rate 2020-10-02 17:41:00 82 /min [facility] height 2020-10-02 17:41:00 175.3 cm [facility] Body weight 2020-10-02 17:41:00 139.708 [facility] BMI 2020-10-02 17:41:00 45.48 kg/m2 [facility] Systolic blood 2020-08-20 19:03:00 156 mm[Hg] [facility] Diastolic blood 2020-08-20 19:03:00 95 mm[Hg] [facility] Heart rate 2020-08-20 19:00:00 67 /min [facility] Body weight 2020-08-20 19:00:00 142.792 kg [facility] BMI 2020-08-20 19:00:00 46.49 kg/m2 [facility] Oxygen saturation in 2020-08-20 19:00:00 98 /min [facility] Arterial blood by [facility] oxim[facility] Systolic blood 2020-08-14 20:00:00 170 mm[Hg] [facility] Diastolic blood 2020-08-14 20:00:00 85 mm[Hg] [facility] Respiratory rate 2020-08-14 20:00:00 18 /min [facility] Heart rate 2020-08-14 19:15:00 61 /min [facility] Oxygen saturation in 2020-08-14 19:15:00 98 /min [facility] Arterial blood by [facility] o[facility] Body temperature 2020-08-14 16:36:00 37.22 [facility] Body height 2020-08-14 16:36:00 175.3 cm [facility] Body weight 2020-08-14 16:36:00 142.883 kg [facility] BMI 2020-08-14 16:36:00 46.52 kg/m2 [facility] BP Systolic 2022-10-20 11:43:00 135 mm[Hg] BP Diastolic 2022-10-20 11:43:00 84 mm[Hg] Weight Measured 2022-10-20 11:43:00 311.80 pounds Height Measured 2022-10-20 11:43:00 69.00 inches Body Temperature 2022-10-20 11:43:00 98.30 degrees Heart Rate 2022-10-20 11:43:00 85.00 /min Respiratory Rate 2022-10-20 11:43:00 18.00 /min BP Systolic 2022-09-22 11:30:00 164 mm[Hg] BP Diastolic 2022-09-22 11:30:00 98 mm[Hg] Weight Measured 2022-09-22 11:30:00 309.00 pounds Height Measured 2022-09-22 11:30:00 69.00 inches Body Temperature 2022-09-22 11:30:00 98.00 degrees Heart Rate 2022-09-22 11:30:00 88.00 /min Respiratory Rate 2022-09-22 11:30:00 17.00 /min BP Systolic 2022-08-24 11:36:00 153 mm[Hg] BP Diastolic 2022-08-24 11:36:00 81 mm[Hg] Weight Measured 2022-08-24 11:36:00 303.80 pounds Height Measured 2022-08-24 11:36:00 69.00 inches Body Temperature 2022-08-24 11:36:00 97.80 degrees Heart Rate 2022-08-24 11:36:00 92.00 /min Respiratory Rate 2022-08-24 11:36:00 BP Systolic 2022-08-07 13:31:00 147 mm[Hg] BP Diastolic 2022-08-07 13:31:00 91 mm[Hg] Weight Measured 2022-08-07 13:31:00 301.60 pounds Height Measured 2022-08-07 13:31:00 69.00 inches Body Temperature 2022-08-07 13:31:00 98.30 degrees Heart Rate 2022-08-07 13:31:00 89.00 /min Respiratory Rate 2022-08-07 13:31:00 17.00 /min BP Systolic 2022-06-18 09:22:00 142 mm[Hg] BP Diastolic 2022-06-18 09:22:00 82 mm[Hg] Weight Measured 2022-06-18 09:22:00 311.60 pounds Height Measured 2022-06-18 09:22:00 69.00 inches Body Temperature 2022-06-18 09:22:00 97.60 degrees Heart Rate 2022-06-18 09:22:00 100.00 /min Respiratory Rate 2022-06-18 09:22:00 24.00 /min BP Systolic 2022-06-04 17:22:00 126 mm[Hg] BP Diastolic 2022-06-04 17:22:00 74 mm[Hg] Weight Measured 2022-06-04 17:22:00 308.00 pounds Height Measured 2022-06-04 17:22:00 69.00 inches Body Temperature 2022-06-04 17:22:00 98.10 degrees Heart Rate 2022-06-04 17:22:00 102.00 /min Respiratory Rate 2022-06-04 17:22:00 18.00 /min BP Systolic 2022-05-29 09:45:00 142 mm[Hg] BP Diastolic 2022-05-29 09:45:00 84 mm[Hg] Weight Measured 2022-05-29 09:45:00 308.20 pounds Height Measured 2022-05-29 09:45:00 69.00 inches Body Temperature 2022-05-29 09:45:00 97.90 degrees Heart Rate 2022-05-29 09:45:00 90.00 /min Respiratory Rate 2022-05-29 09:45:00 18.00 /min BP Systolic 2022-02-23 15:40:00 144 mm[Hg] BP Diastolic 2022-02-23 15:40:00 85 mm[Hg] Weight Measured 2022-02-23 15:40:00 309.80 pounds Height Measured 2022-02-23 15:40:00 69.00 inches Body Temperature 2022-02-23 15:40:00 97.20 degrees Heart Rate 2022-02-23 15:40:00 86.00 /min Respiratory Rate 2022-02-23 15:40:00 BP Systolic 2022-01-27 11:37:00 132 mm[Hg] BP Diastolic 2022-01-27 11:37:00 66 mm[Hg] Weight Measured 2022-01-27 11:37:00 306.80 pounds Height Measured 2022-01-27 11:37:00 69.00 inches Body Temperature 2022-01-27 11:37:00 98.30 degrees Heart Rate 2022-01-27 11:37:00 97.00 /min Respiratory Rate 2022-01-27 11:37:00 21.00 /min BP Systolic 2021-12-11 16:19:00 127 mm[Hg] BP Diastolic 2021-12-11 16:19:00 72 mm[Hg] Weight Measured 2021-12-11 16:19:00 309.80 pounds Height Measured 2021-12-11 16:19:00 69.00 inches Body Temperature 2021-12-11 16:19:00 98.30 degrees Heart Rate 2021-12-11 16:19:00 87.00 /min Respiratory Rate 2021-12-11 16:19:00 BP Systolic 2021-11-05 09:30:00 134 mm[Hg] BP Diastolic 2021-11-05 09:30:00 80 mm[Hg] Weight Measured 2021-11-05 09:30:00 307.60 pounds Height Measured 2021-11-05 09:30:00 69.00 inches Body Temperature 2021-11-05 09:30:00 98.50 degrees Heart Rate 2021-11-05 09:30:00 80.00 /min Respiratory Rate 2021-11-05 09:30:00 21.00 /min BP Systolic 2021-09-24 11:30:00 120 mm[Hg] BP Diastolic 2021-09-24 11:30:00 68 mm[Hg] Weight Measured 2021-09-24 11:30:00 310.40 pounds Height Measured 2021-09-24 11:30:00 69.00 inches Body Temperature 2021-09-24 11:30:00 98.10 degrees Heart Rate 2021-09-24 11:30:00 90.00 /min Respiratory Rate 2021-09-24 11:30:00 BP Systolic 2021-09-10 15:06:00 150 mm[Hg] BP Diastolic 2021-09-10 15:06:00 99 mm[Hg] Weight Measured 2021-09-10 15:06:00 307.40 pounds Height Measured 2021-09-10 15:06:00 69.00 inches Body Temperature 2021-09-10 15:06:00 97.80 degrees Heart Rate 2021-09-10 15:06:00 90.00 /min Respiratory Rate 2021-09-10 15:06:00 BP Systolic 2021-08-26 13:46:00 128 mm[Hg] BP Diastolic 2021-08-26 13:46:00 73 mm[Hg] Weight Measured 2021-08-26 13:46:00 311.20 pounds Height Measured 2021-08-26 13:46:00 69.00 inches Body Temperature 2021-08-26 13:46:00 98.00 degrees Heart Rate 2021-08-26 13:46:00 85.00 /min Respiratory Rate 2021-08-26 13:46:00 BP Systolic 2021-07-16 09:57:00 137 mm[Hg] BP Diastolic 2021-07-16 09:57:00 73 mm[Hg] Weight Measured 2021-07-16 09:57:00 314.80 pounds Height Measured 2021-07-16 09:57:00 69.00 inches Body Temperature 2021-07-16 09:57:00 98.70 degrees Heart Rate 2021-07-16 09:57:00 89.00 /min Respiratory Rate 2021-07-16 09:57:00 BP Systolic 2021-04-29 10:31:00 144 mm[Hg] BP Diastolic 2021-04-29 10:31:00 87 mm[Hg] Weight Measured 2021-04-29 10:31:00 312.00 pounds Height Measured 2021-04-29 10:31:00 69.00 inches Body Temperature 2021-04-29 10:31:00 98.90 degrees Heart Rate 2021-04-29 10:31:00 87.00 /min Respiratory Rate 2021-04-29 10:31:00 21.00 /min Procedures Procedure Date / Time Performing Clinician Source Performed REFERRAL- 2022-06-02 05:01:00 Doctor Unassigned, No [facility] REQUEST/RESPONSE Name Medical Branch ASSIGNMENT OF BENEFITS 2020-10-16 16:59:19 Doctor Unassigned, No [facility] Branch COVID-19 (ID NOW RAPID 2020-09-23 15:31:00 Steve Grande [facility] TESTING) Medical Branch CONSENT/REFUSAL FOR 2020-09-23 14:40:38 Doctor Unassigned, No [facility] DIAGNOSIS AND TREATMENT Name Medical Branch ASSIGNMENT OF BENEFITS 2020-09-23 14:40:20 Doctor Unassigned, No [facility] Medical Branch COVID-19 (ID NOW RAPID 2020-08-14 17:41:00 Yuriy Wong [facility] TESTING) Medical Branch XR CHEST 2 VW 2020-08-14 17:27:25 Yuriy Wong [facility] Medical Branch LIPASE 2020-08-14 16:56:00 Singer [facility] TROPONIN I 2020-08-14 16:56:00 Singer [facility] COMP. METABOLIC PANEL 2020-08-14 16:56:00 Nestor Saenz [facility] ([id number]) Medical Branch CBC WITH DIFF 2020-08-14 16:56:00 Singer [facility] PROTHROMBIN TIME / INR 2020-08-14 16:56:00 Nestor Saenz [facility] Medical [place] ACTIVATED PARTIAL 2020-08-14 16:56:00 Nestor Saenz [facility] THRMPLAS [facility] N-TERMINAL PRO-BNP 2020-08-14 16:56:00 Nestor Saenz [facility] y [facility] EKG-12 LEAD 2020-08-14 16:53:49 Singer Nestor [place] [facility] NOTICE OF PRIVACY 2020-08-14 16:32:14 Doctor Unassigned, No [facility] PRACT[facility] Name Medical Branch CONSENT/REFUSAL FOR 2020-08-14 16:29:49 Doctor Unassigned, No [facility] DIAGNOSIS AND TREATMENT Name [facility] Plan of Care Planned Activity Planned Date Details Comments Source Goal Plan of Care Note [code = 84625-9] Goal Plan of Care Note [code = 85963-4] Goal Plan of Care Note [code = 96134-6] Goal Plan of Care Note [code = 51316-8] Goal Plan of Care Note [code = 13172-4] Goal Plan of Care Note [code = 88011-4] Goal Plan of Care Note [code = 63954-8] Goal Plan of Care Note [code = 42983-5] Goal Plan of Care Note [code = 05116-0] Goal Plan of Care Note [code = 52679-9] Goal Plan of Care Note [code = 79213-0] Goal Plan of Care Note [code = 11637-4] Goal Plan of Care Note [code = 91191-8] Goal Plan of Care Note [code = 00251-6] Goal Plan of Care Note [code = 73520-8] Goal Plan of Care Note [code = 64091-9] Goal Plan of Care Note [code = 73964-8] Goal Plan of Care Note [code = 93247-3] Goal Plan of Care Note [code = 78990-2] Goal Plan of Care Note [code = 63638-4] Goal Plan of Care Note [code = 60204-0] Goal Plan of Care Note [code = 29633-0] Goal Plan of Care Note [code = 66434-0] Goal Plan of Care Note [code = 92726-5] Goal Plan of Care Note [code = 39317-9] Goal Plan of Care Note [code = 02445-7] Goal Plan of Care Note [code = 95232-9] Goal Plan of Care Note [code = 67483-9] Goal Plan of Care Note [code = 25826-2] Goal Plan of Care Note [code = 99772-0] Goal Plan of Care Note [code = 69750-0] Goal Plan of Care Note [code = 30645-5] Goal Plan of Care Note [code = 24431-2] Goal Plan of Care Note [code = 69877-4] Goal Plan of Care Note [code = 12990-3] Goal Plan of Care Note [code = 67553-6] Goal Plan of Care Note [code = 38734-6] Goal Plan of Care Note [code = 47863-7] Goal Plan of Care Note [code = 62527-3] Goal Plan of Care Note [code = 04254-9] Goal Plan of Care Note [code = 54254-7] Goal Plan of Care Note [code = 94570-6] Goal Plan of Care Note [code = 44431-4] Goal Plan of Care Note [code = 50050-6] Goal Plan of Care Note [code = 96912-1] Goal Plan of Care Note [code = 73359-4] Goal Plan of Care Note [code = 10250-9] Goal Plan of Care Note [code = 64243-9] Goal Plan of Care Note [code = 44168-2] Goal Plan of Care Note [code = 10445-6] Goal Plan of Care Note [code = 11427-3] Goal Plan of Care Note [code = 82494-3] Goal Plan of Care Note [code = 04089-7] Goal Plan of Care Note [code = 56525-6] Goal Plan of Care Note [code = 10486-9] Goal Plan of Care Note [code = 28781-6] Goal Plan of Care Note [code = 13354-7] Goal Plan of Care Note [code = 56822-5] Goal Plan of Care Note [code = 62619-9] Goal Plan of Care Note [code = 37250-9] Goal Plan of Care Note [code = 36476-9] Goal Plan of Care Note [code = 79784-5] Goal Plan of Care Note [code = 71573-7] Goal Plan of Care Note [code = 02890-0] Goal Plan of Care Note [code = 75302-5] Goal Plan of Care Note [code = 70969-5] Goal Plan of Care Note [code = 46116-5] Goal Plan of Care Note [code = 60995-4] Goal Plan of Care Note [code = 02665-5] Goal Plan of Care Note [code = 50822-0] Goal Plan of Care Note [code = 30130-9] Goal Plan of Care Note [code = 08503-7] Goal Plan of Care Note [code = 13565-6] Goal Plan of Care Note [code = 26446-1] Goal Plan of Care Note [code = 21037-2] Goal Plan of Care Note [code = 60049-1] Goal Plan of Care Note [code = 45464-1] Goal Plan of Care Note [code = 53625-2] Goal Plan of Care Note [code = 43260-6] Goal Plan of Care Note [code = 71857-0] Goal Plan of Care Note [code = 51746-2] Goal Plan of Care Note [code = 27290-8] Goal Plan of Care Note [code = 41291-7] Goal Plan of Care Note [code = 69039-9] Goal Plan of Care Note [code = 34077-9] Goal Plan of Care Note [code = 41660-5] Goal Plan of Care Note [code = 36297-4] Goal Plan of Care Note [code = 54117-9] Goal Plan of Care Note [code = 34026-1] Goal Plan of Care Note [code = 33517-3] Goal Plan of Care Note [code = 79013-7] Goal Plan of Care Note [code = 26312-4] Goal Plan of Care Note [code = 72010-8] Goal Plan of Care Note [code = 27025-3] Goal Plan of Care Note [code = 08461-7] Goal Plan of Care Note [code = 26945-1] Goal Plan of Care Note [code = 61464-3] Goal Plan of Care Note [code = 08144-1] Goal Plan of Care Note [code = 28010-5] Goal Plan of Care Note [code = 18542-7] Goal Plan of Care Note [code = 87344-5] Goal Plan of Care Note [code = 77508-9] Goal Plan of Care Note [code = 13463-1] Goal Plan of Care Note [code = 56436-4] Goal Plan of Care Note [code = 02049-6] Goal Plan of Care Note [code = 20543-9] Goal Plan of Care Note [code = 35443-5] Goal Plan of Care Note [code = 63783-4] Goal Plan of Care Note [code = 93154-6] Goal Plan of Care Note [code = 64096-5] Goal Plan of Care Note [code = 16300-0] Goal Plan of Care Note [code = 35529-4] Goal Plan of Care Note [code = 37212-4] Goal Plan of Care Note [code = 83278-3] Goal Plan of Care Note [code = 99337-3] Goal Plan of Care Note [code = 00440-9] Goal Plan of Care Note [code = 91041-0] Goal Plan of Care Note [code = 95721-7] Goal Plan of Care Note [code = 00437-0] Goal Plan of Care Note [code = 93442-8] Goal Plan of Care Note [code = 36449-6] Goal Plan of Care Note [code = 62493-0] Goal Plan of Care Note [code = 17048-1] Goal Plan of Care Note [code = 68175-2] Goal Plan of Care Note [code = 28141-6] Goal Plan of Care Note [code = 81936-5] Goal Plan of Care Note [code = 91068-2] Goal Plan of Care Note [code = 03372-2] Goal Plan of Care Note [code = 78368-0] Goal Plan of Care Note [code = 71512-6] Goal Plan of Care Note [code = 52687-6] Goal Plan of Care Note [code = 42108-1] Goal Plan of Care Note [code = 81819-9] Goal Plan of Care Note [code = 87455-8] Goal Plan of Care Note [code = 92953-7] Goal Plan of Care Note [code = 04107-3] Goal Plan of Care Note [code = 61712-3] Goal Plan of Care Note [code = 60986-7] Goal Plan of Care Note [code = 63798-7] Goal Plan of Care Note [code = 32501-3] Goal Plan of Care Note [code = 84469-8] Goal Plan of Care Note [code = 82107-2] Goal Plan of Care Note [code = 53830-3] Goal Plan of Care Note [code = 35015-7] Goal Plan of Care Note [code = 23297-1] Goal Plan of Care Note [code = 02618-1] Goal Plan of Care Note [code = 50408-5] Goal Plan of Care Note [code = 19356-2] Goal Plan of Care Note [code = 82848-1] Goal Plan of Care Note [code = 44713-4] Goal Plan of Care Note [code = 73833-4] Goal Plan of Care Note [code = 17646-5] Goal Plan of Care Note [code = 00368-2] Goal Plan of Care Note [code = 09423-4] Goal Plan of Care Note [code = 17890-8] Goal Plan of Care Note [code = 87053-4] Goal Plan of Care Note [code = 53865-8] Goal Plan of Care Note [code = 20040-6] Goal Plan of Care Note [code = 94788-6] Goal Plan of Care Note [code = 52273-9] Goal Plan of Care Note [code = 99052-0] Goal Plan of Care Note [code = 02158-1] Goal Plan of Care Note [code = 42469-3] Goal Plan of Care Note [code = 63937-8] Goal Plan of Care Note [code = 58851-5] Goal Plan of Care Note [code = 46605-2] Goal Plan of Care Note [code = 79276-6] Goal Plan of Care Note [code = 89889-0] Goal Plan of Care Note [code = 45922-3] Goal Plan of Care Note [code = 27490-9] Goal Plan of Care Note [code = 22032-6] Goal Plan of Care Note [code = 76666-6] Goal Plan of Care Note [code = 78919-7] Goal Plan of Care Note [code = 52563-5] Goal Plan of Care Note [code = 38935-5] Goal Plan of Care Note [code = 04122-6] Goal Plan of Care Note [code = 93586-9] Goal Plan of Care Note [code = 54950-3] Goal Plan of Care Note [code = 53985-1] Goal Plan of Care Note [code = 28934-9] Goal Plan of Care Note [code = 29928-1] Goal Plan of Care Note [code = 18711-8] Goal Plan of Care Note [code = 48160-7] Goal Plan of Care Note [code = 00855-1] Goal Plan of Care Note [code = 90505-9] Goal Plan of Care Note [code = 87080-5] Goal Plan of Care Note [code = 54017-9] Goal Plan of Care Note [code = 78033-3] Goal Plan of Care Note [code = 49227-6] Goal Plan of Care Note [code = 22311-9] Goal Plan of Care Note [code = 53571-0] Goal Plan of Care Note [code = 98281-8] Goal Plan of Care Note [code = 56830-6] Goal Plan of Care Note [code = 75031-5] Goal Plan of Care Note [code = 41285-9] Goal Plan of Care Note [code = 57937-5] Goal Plan of Care Note [code = 01441-4] Goal Plan of Care Note [code = 22391-7] Goal Plan of Care Note [code = 64090-6] Goal Plan of Care Note [code = 00295-0] Goal Plan of Care Note [code = 71665-3] Goal Plan of Care Note [code = 65006-2] Goal Plan of Care Note [code = 12466-2] Goal Plan of Care Note [code = 39909-8] Goal Plan of Care Note [code = 98056-6] Goal Plan of Care Note [code = 35182-9] Goal Plan of Care Note [code = 67189-2] Goal Plan of Care Note [code = 24229-9] Goal Plan of Care Note [code = 33036-6] Goal Plan of Care Note [code = 76101-3] Goal Plan of Care Note [code = 74895-1] Goal Plan of Care Note [code = 56867-6] Goal Plan of Care Note [code = 68525-4] Goal Plan of Care Note [code = 37042-8] Goal Plan of Care Note [code = 77107-5] Goal Plan of Care Note [code = 16977-5] Goal Plan of Care Note [code = 86407-9] Goal Plan of Care Note [code = 56836-2] Goal Plan of Care Note [code = 28422-9] Goal Plan of Care Note [code = 57908-8] Goal Plan of Care Note [code = 09267-7] Goal Plan of Care Note [code = 99155-6] Goal Plan of Care Note [code = 44665-9] Goal Plan of Care Note [code = 50972-8] Goal Plan of Care Note [code = 02113-2] Goal Plan of Care Note [code = 18311-1] Goal Plan of Care Note [code = 96232-2] Goal Plan of Care Note [code = 86548-0] Goal Plan of Care Note [code = 70274-0] Goal Plan of Care Note [code = 75202-0] Goal Plan of Care Note [code = 23531-2] Goal Plan of Care Note [code = 41942-8] Goal Plan of Care Note [code = 85715-5] Goal Plan of Care Note [code = 42759-0] Goal Plan of Care Note [code = 63970-5] Goal Plan of Care Note [code = 16406-0] Goal Plan of Care Note [code = 87004-0] Goal Plan of Care Note [code = 24122-0] Goal Plan of Care Note [code = 48399-7] Goal Plan of Care Note [code = 29492-0] Goal Plan of Care Note [code = 97641-7] Goal Plan of Care Note [code = 34987-0] Goal Plan of Care Note [code = 65947-6] Goal Plan of Care Note [code = 15341-7] Goal Plan of Care Note [code = 19350-6] Goal Plan of Care Note [code = 76940-1] Goal Plan of Care Note [code = 77777-9] Goal Plan of Care Note [code = 19587-5] Goal Plan of Care Note [code = 51231-8] Goal Plan of Care Note [code = 75282-7] Goal Plan of Care Note [code = 66886-3] Goal Plan of Care Note [code = 89969-7] Goal Plan of Care Note [code = 23186-4] Goal Plan of Care Note [code = 76709-4] Goal Plan of Care Note [code = 77973-7] Goal Plan of Care Note [code = 58719-5] Goal Plan of Care Note [code = 22022-2] Goal Plan of Care Note [code = 88004-5] Goal Plan of Care Note [code = 20941-1] Goal Plan of Care Note [code = 22202-3] Goal Plan of Care Note [code = 24238-4] Goal Plan of Care Note [code = 15223-8] Goal Plan of Care Note [code = 94975-3] Goal Plan of Care Note [code = 92438-5] Goal Plan of Care Note [code = 92168-7] Goal Plan of Care Note [code = 51402-0] Goal Plan of Care Note [code = 51488-9] Goal Plan of Care Note [code = 82360-1] Goal Plan of Care Note [code = 50390-7] Goal Plan of Care Note [code = 50299-6] Goal Plan of Care Note [code = 64256-2] Goal Plan of Care Note [code = 83012-0] Goal Plan of Care Note [code = 66291-9] Goal Plan of Care Note [code = 17438-5] Goal Plan of Care Note [code = 70474-7] Goal Plan of Care Note [code = 68181-3] Goal Plan of Care Note [code = 73202-4] Goal Plan of Care Note [code = 58366-3] Goal Plan of Care Note [code = 30647-9] Goal Plan of Care Note [code = 38031-5] Goal Plan of Care Note [code = 66272-2] Goal Plan of Care Note [code = 45623-4] Goal Plan of Care Note [code = 38849-3] Goal Plan of Care Note [code = 31336-9] Goal Plan of Care Note [code = 26680-4] Goal Plan of Care Note [code = 14797-8] Goal Plan of Care Note [code = 33439-2] Goal Plan of Care Note [code = 57294-5] Goal Plan of Care Note [code = 81420-3] Goal Plan of Care Note [code = 76990-2] Goal Plan of Care Note [code = 89902-3] Goal Plan of Care Note [code = 37253-2] Goal Plan of Care Note [code = 31837-3] Goal Plan of Care Note [code = 36099-5] Goal Plan of Care Note [code = 87516-3] Goal Plan of Care Note [code = 12462-0] Goal Plan of Care Note [code = 39221-6] Goal Plan of Care Note [code = 89638-2] Goal Plan of Care Note [code = 99248-5] Goal Plan of Care Note [code = 25059-3] Goal Plan of Care Note [code = 67346-5] Goal Plan of Care Note [code = 50666-5] Goal Plan of Care Note [code = 66423-4] Goal Plan of Care Note [code = 48544-9] Goal Plan of Care Note [code = 95386-7] Goal Plan of Care Note [code = 64156-4] Goal Plan of Care Note [code = 82887-4] Goal Plan of Care Note [code = 20983-0] Goal Plan of Care Note [code = 39799-0] Goal Plan of Care Note [code = 97615-1] Goal Plan of Care Note [code = 24377-7] Goal Plan of Care Note [code = 08238-1] Goal Plan of Care Note [code = 47957-2] Goal Plan of Care Note [code = 25516-5] Goal Plan of Care Note [code = 82819-4] Goal Plan of Care Note [code = 60637-8] Goal Plan of Care Note [code = 04160-3] Goal Plan of Care Note [code = 85556-4] Goal Plan of Care Note [code = 90841-3] Goal Plan of Care Note [code = 60193-8] Goal Plan of Care Note [code = 58847-5] Goal Plan of Care Note [code = 64180-0] Goal Plan of Care Note [code = 14134-5] Goal Plan of Care Note [code = 80734-5] Goal Plan of Care Note [code = 22185-1] Goal Plan of Care Note [code = 54294-4] Goal Plan of Care Note [code = 79012-0] Goal Plan of Care Note [code = 35559-5] Goal Plan of Care Note [code = 51312-1] Goal Plan of Care Note [code = 06214-7] Goal Plan of Care Note [code = 91140-4] Goal Plan of Care Note [code = 48315-7] Goal Plan of Care Note [code = 13326-5] Goal Plan of Care Note [code = 18135-1] Goal Plan of Care Note [code = 18317-8] Goal Plan of Care Note [code = 12490-4] Goal Plan of Care Note [code = 29362-3] Goal Plan of Care Note [code = 58936-4] Goal Plan of Care Note [code = 46746-8] Goal Plan of Care Note [code = 90328-8] Goal Plan of Care Note [code = 52821-1] Goal Plan of Care Note [code = 37980-4] Goal Plan of Care Note [code = 93544-4] Goal Plan of Care Note [code = 49600-5] Goal Plan of Care Note [code = 72381-0] Goal Plan of Care Note [code = 67215-9] Goal Plan of Care Note [code = 46627-8] Goal Plan of Care Note [code = 88057-3] Goal Plan of Care Note [code = 17558-6] Goal Plan of Care Note [code = 71407-3] Goal Plan of Care Note [code = 30846-9] Goal Plan of Care Note [code = 02346-1] Goal Plan of Care Note [code = 61150-0] Goal Plan of Care Note [code = 09804-6] Goal Plan of Care Note [code = 33635-2] Goal Plan of Care Note [code = 32499-7] Goal Plan of Care Note [code = 84963-9] Goal Plan of Care Note [code = 88798-7] Goal Plan of Care Note [code = 72040-6] Goal Plan of Care Note [code = 30133-7] Goal Plan of Care Note [code = 45543-2] Goal Plan of Care Note [code = 30992-3] Goal Plan of Care Note [code = 04318-6] Goal Plan of Care Note [code = 69944-6] Goal Plan of Care Note [code = 19402-2] Goal Plan of Care Note [code = 48838-3] Goal Plan of Care Note [code = 28870-1] Goal Plan of Care Note [code = 14808-6] Goal Plan of Care Note [code = 64174-9] Goal Plan of Care Note [code = 96280-0] Goal Plan of Care Note [code = 41206-7] Goal Plan of Care Note [code = 12434-6] Goal Plan of Care Note [code = 02949-2] Goal Plan of Care Note [code = 58024-8] Goal Plan of Care Note [code = 47966-3] Goal Plan of Care Note [code = 31673-6] Goal Plan of Care Note [code = 35163-7] Goal Plan of Care Note [code = 49966-3] Goal Plan of Care Note [code = 07846-8] Goal Plan of Care Note [code = 62414-7] Goal Plan of Care Note [code = 83048-9] Goal Plan of Care Note [code = 05536-0] Goal Plan of Care Note [code = 87429-3] Encounters Start End Encounter Admission Attending Care Care Encounter Source Date/Time Date/Time Type Type Clinicians Facility Department ID 2021-12-10 Outpatient Jan Rodriges STLMLC STLMLC [id number] 02 Common 11:59:45 [id number] [facility] 2021-12-10 Outpatient Nichelle, STLMLC STLMLC [id number]- Common 11:55:33 Amairani [id number] [facility] 2021-12-10 Outpatient Nichelle STLMLC STLMLC [id number] Common 11:47:42 Amairani [id number] [facility] 2021-12-10 Outpatient Nichelle STLMLC STLMLC [id number] Common 11:31:54 Amairani 47001 [facility] 2022-10-20 2022-10-20 Outpatient SFA SFA 12223-4 022 Mark 11:33:10 11:33:10 1206 F Dave 2022-10-20 2022-10-20 Outpatient z5wl4733- [id number] a2 nd5692-5 00:00:00 00:00:00 Visit 932e-4310 32e-4310-8 -33m6-963 7w8-065595 773c24r11 e47f35 2022-10-16 2022-10-16 Outpatient SFA SFA 80213-7 022 Mark 08:22:31 08:22:31 1202 F Dave 2022-10-15 2022-10-15 Outpatient 442xf1mi- [id number] 55 2fl8ih-8 00:00:00 00:00:00 Visit 2abe-4eb1 kathy-4eb1-8 -4b49-93h s68-50oh4m q0c3r2s29 4c1c31 2022-09-22 2022-09-22 Outpatient SFA SFA 72929-0 022 Mark 11:21:57 11:21:57 1108 F Dave 2022-09-22 2022-09-22 Outpatient c95je3hg- [id number] a9 0bm8cv-9 00:00:00 00:00:00 Visit 4cae-461d -461d-8 -849d-e84 49d-x5370o 92sgd7g49 bb5e70 2022-08-26 2022-08-26 Outpatient SFA SFA 10126-7 Mark 13:15:53 13:15:53 1012 F Dave 2022-08-25 2022-08-25 Outpatient SFA SFA 55942-4 022 Mark 13:03:07 13:03:07 1011 F Dave 2022-08-24 2022-08-24 Outpatient zpw68to1- [id number] ga k44po3-8 00:00:00 00:00:00 Visit 4k2c-8706 y2p-4890-c -e67x-1tb 58e-1cdbbe xxzwr81r9 ad06a7 2022-08-07 2022-08-07 Outpatient 4a145s3l- [id number] 6b 095e0p-0 00:00:00 00:00:00 Visit 382e-4400 82e-4400-9 -9219-8d4 219-8d40bf 0bz4gc167 9in413 2022-06-18 2022-06-18 Outpatient 6781e3w1- [id number] 51 18o1k0-2 00:00:00 00:00:00 Visit 5ab8-3s21 ea5-4b57-b -bfdc-954 halfway-727438 537zo364c hy666y 2022-06-04 2022-06-04 Outpatient 9i5r7fme- [id number] 4f 1g3phu-4 00:00:00 00:00:00 Visit 8g14-58h2 u75-01c8-3 -877d-222 77d-2220f2 2w4m9l978 o8n455 2022-06-02 2022-06-02 Orders Doctor UMESH 1.2.840.114 [id number] Univers 00:00:00 00:00:00 Only Unassigned, PAULO 350.1.13.10 ity of [place] [facility] 4.2.7.2.686 Raghu as [phone] [facility] [address] 2022-05-29 2022-05-29 Outpatient 1cye68zf- [id number] 8c cr32js-3 00:00:00 00:00:00 Visit 387b-495e 87b-495e-8 -8999-faa 999-faa70e 68l04s554 64c650 2020-10-21 2020-10-21 Telephone Shayna [facility] 1.2.840.114 [id number] Univers 00:00:00 00:00:00 Ember Real 350.1.13.10 ity of [place] 4.2.7.2.686 [facility] [phone] [place] [id number] [facility] 2020-10-18 2020-10-18 Outpatient R EMBER MENA [facility] [id number] Univers 19:30:00 19:30:00 EMBER MENA ity [facility] 2020-10-18 2020-10-18 Guide Cruise 1, [facility] Bed [facility] 1. 2.840.114 [id number] Univers 12:53:38 15:23:38 Visit Ember Mena 350.1.13. 10 ity of [place] 4.2.7.2.686 [facility] [phone] [facility] [address] 2020-10-16 2020-10-16 Laboratory Only, Adc Test [facility] 1.2.840. 114 [id number] Univers 11:00:02 11:15:02 Only [place] 350.1.13.10 ity of [place] 4.2.7.2.686 [facility] [phone] [facility] 353 [address] 2020-10-16 2020-10-16 Outpatient R [facility] [id number] Univers 11:00:00 11:00:00 ity of [facility] 2020-10-16 2020-10-16 Outpatient R [facility] [id number] Univers 09:00:00 09:00:00 ity of [facility] 2020-10-16 2020-10-16 Orders Doctor UMESH 1.2.840.114 [id number] Univers 00:00:00 00:00:00 Only Unassigned, PAULO 350.1.13.10 ity of [place] [facility] 4.2.7.2.686 Raghu as [phone] [facility] [address] [place] 2020-10-16 2020-10-16 Letter Shayna [facility] 1.2.558.864 [id number] Univers 00:00:00 00:00:00 (Out) Ember [place] 350.1.13.10 [place] [phone] [address] 2020-10-02 2020-10-02 Office Shayna [facility] 1.2.862.658 [id number] Univers 11:38:35 12:08:35 Visit Ember [place] 350.1.13.10 [place] [phone] De dical [address] 2020-10-02 2020-10-02 Outpatient R EMBER MENA [facility] [id number] Univers 11:00:00 11:00:00 AARON MENAL ity [facility] 2020-09-24 2020-09-24 Guide Cruise Nava, [facility] 1.2 .840.114 [id number] Univers 13:15:18 13:30:18 Visit Ember Mena [place] 350.1.13. 10 it[place] of [place] [id number] [phone] [address] 2020-09-24 2020-09-24 Outpatient R ELISEO MENAHIL [facility] [id number] Univers 13:00:00 13:00:00 AARON MENAL ity [facility] 2020-09-24 2020-09-24 [facility] [id number] Univers 00:00:00 00:00:00 (Out) Ember Real [id number] ity of [place] [id number] [facility] [phone] [facility] [address] 2020-09-23 2020-09-23 Laboratory Only, Adc Test [facility] 1.2.840. [id number] Univers 08:44:40 08:59:40 Only [place] [id number] ity of [place] [id number] [facility] [phone] [facility] [address] 2020-09-23 2020-09-23 Outpatient R [facility] [id number] Univers 08:00:00 08:00:00 ity of [facility] 2020-09-23 2020-09-23 Orders Doctor CALVO 1.2.840.114 [id number] Univers 00:00:00 00:00:00 Only Unassigned, PAULO 350.1.13.10 ity of [facility] 4.2.7.2.686 Raghu as [phone] [facility] [address] 2020-09-20 2020-09-20 Outpatient R [facility] [id number] Univers 13:15:00 13:15:00 ity of [facility] 2020-09-17 2020-09-17 Outpatient R EMBER MENA [facility] [id number] Univers 10:00:00 10:00:00 EMBER MENA ity of [facility] 2020-09-13 2020-09-13 Outpatient R [facility] [id number] Univers 08:00:00 08:00:00 ity of [facility] 2020-09-05 2020-09-05 Telephone Adenike [facility] [id number] Univers 00:00:00 00:00:00 Milagro Real 350.1.13.10 ity of [place] [id number] [facility] [id number] De dical nal 059 [facility] 2020-08-20 2020-08-20 Office Adenike [facility] [id number] Univers 13:52:57 14:40:49 Visit Milagro Graceton 350.1.13.10 it[place] [phone] De dichi nal [address] [place] [address] 2020-08-20 2020-08-20 [facility]patient [facility] [id number] Univers 14:20:00 14:20:00 TSERINGBROWN giannay o f [facility] 2020-08-20 2020-08-20 [facility] 1.2.840.114 [id number] Univers 00:00:00 00:00:00 Milagro Real 350.1.13.10 [place] [phone] [address] 2020-08-14 2020-08-14 [facility] 1.2.840.114 [id number] Univers 11:41:00 15:20:00 Yuriy Real 350.1.13.10 [place] [phone] [facility] [address] [place] 2020-08-14 2020-08-14 Emergency X [facility] ERT [id number] Univers 11:28:00 11:28:00 ity of [facility] 2020-07-30 2020-07-30 Transition Adele Olson 1.2.840.114 [id number] Univers 00:00:00 00:00:00 of Care Donnie Pedroy 350.1.13.10 [place] [phone] [facility] [address] 2020-07-30 2020-07-30 Transition Adele Olson 1.2.840.114 [id number] 00:00:00 00:00:00 of Care Donnie Pedroy 350.1.13.10 [place] 4.2.7.2.686 [phone] 403 2020-07-27 2020-07-27 Outpatient X AL BLOCK [facility] CELSA [id number] Univers 14:07:00 14:07:00 ity of [facility] Results Test Description Test Time Test Comments Results Result Comments Source CULTURE, URINE 2022-06-08 SPECIMEN NUMBER: 09:03:37 [id number] CULTURE, URINE SPECIMEN NUMBER: [id number] SPECIMEN COMMENT: URINE SOURCE: URINE REPORT STATUS: FINAL FINAL REPORT: 06/08/2022 >100,000 CFU/ML UROGENITAL HOLLIS PRESENT NO COMMON PATHOGENS UNLESS OTHERWISE INDICATED, ALL TESTING [facility]FORMED [facility] [employer] [address] [address] ICT SYSTEMS TEST ENGINEER: JACINTA HAYDEN M.D. CLIA NUMBER [id number] [facility] [place]. [id number] CULTURE, URINE 2022-06-08 00:00:00 Test Item Value Reference Range Interpretation Comme nts CULTURE, URINE (test code = 50516) SPECIMEN NUMBER: [id number] CULTURE, [id number] 00:00:00 Test Item Value Reference Range Interpretation Comments CULTURE, URINE (test SPECIMEN NUMBER: code = 77424) [id number] CULTURE, [id number] 00:00:00 Test Item Value Reference Range Interpretation Comments CULTURE, URINE (test SPECIMEN NUMBER: code = 56257) [id number] CULTURE, [id number] 00:00:00 Test Item Value Reference Range Interpretation Comments CULTURE, URINE (test SPECIMEN NUMBER: code = 94961) [id number] CULTURE, [id number] 00:00:00 Test Item Value Reference Range Interpretation Comments CULTURE, URINE (test SPECIMEN NUMBER: code = 49477) [id number] CULTURE, [id number] 00:00:00 Test Item Value Reference Range Interpretation Comments CULTURE, URINE (test SPECIMEN NUMBER: code = 32450) [id number] CULTURE, [id number] 00:00:00 Test Item Value Reference Range Interpretation Comments CULTURE, URINE (test SPECIMEN NUMBER: code = 23483) [id number] CULTURE, [id number] 00:00:00 Test Item Value Reference Range Interpretation Comments CULTURE, URINE (test SPECIMEN NUMBER: code = 28846) [id number] CULTURE, [id number] 00:00:00 Test Item Value Reference Range Interpretation Comments CULTURE, URINE (test SPECIMEN NUMBER: code = 14803) [id number] CULTURE, [id number] 00:00:00 Test Item Value Reference Range Interpretation Comments CULTURE, URINE (test SPECIMEN NUMBER: code = 42917) [id number] CULTURE, [id number] 00:00:00 Test Item Value Reference Range Interpretation Comments CULTURE, URINE (test SPECIMEN NUMBER: code = 13808) [id number] HEMOGLOBIN [id number] 07:18:13 Test Item Value Reference Range Interpretation Comments HEMOGLOBIN A1c (test 9.3 % 4.2-5.6 H [employer] AN DIABETES code = 71565) ASSOCIATION IDELINES FOR HGB A1C: PREDIABETES/INC REASED RISK . . . . . . . 5.7 -6.4% DIAGNOSIS OF DI ABETES . . . . . . . . . >=6 .5% WITH CONFIRMATION OR APPROPRIATE SYMPTOMS NOTE: ASSAY MAY BE AFFECTED BY HEMOGLOBINOPATH IES (SICKLE CELL ANEMIA, S- C DISEASE, OTHERS) OR [place] FICIALLY LOWERED BY DECR EASED RED CELL SURVIVAL ( HEMOLYTIC ANEMIAS, BLOOD LOSS, ETC.). CONSIDER ALTERN ATE TESTING OR LABORATORY C ONSULTATION. UNLESS OTHERWIS E INDICATED, ALL TESTING PER [facility] ATCLINICAL PATH [facility] [place] [address] 96 LABORATORY DIRE CTOR: JACINTA HAYDEN M.D. CLIA NUMBER [id number] [facility] [place] [place]. [id number] HEMOGLOBIN [id number] 00:00:00 Test Item Value Reference Range Interpretation Comments HEMOGLOBIN A1c (test code = 47875) 9.3 % HEMOGLOBIN [id number] 00:00:00 Test Item Value Reference Range Interpretation Comments HEMOGLOBIN A1c (test code = 89310) 9.3 % HEMOGLOBIN [id number] 00:00:00 Test Item Value Reference Range Interpretation Comments HEMOGLOBIN A1c (test code = 10448) 9.3 % HEMOGLOBIN [id number] 00:00:00 Test Item Value Reference Range Interpretation Comments HEMOGLOBIN A1c (test code = 20587) 9.3 % HEMOGLOBIN [id number] 00:00:00 Test Item Value Reference Range Interpretation Comments HEMOGLOBIN A1c (test code = 24378) 9.3 % HEMOGLOBIN [id number] 00:00:00 Test Item Value Reference Range Interpretation Comments HEMOGLOBIN A1c (test code = 54253) 9.3 % HEMOGLOBIN [id number] 00:00:00 Test Item Value Reference Range Interpretation Comments HEMOGLOBIN A1c (test code = 57835) 9.3 % HEMOGLOBIN [id number] 00:00:00 Test Item Value Reference Range Interpretation Comments HEMOGLOBIN A1c (test code = 90527) 9.3 % HEMOGLOBIN [id number] 00:00:00 Test Item Value Reference Range Interpretation Comments HEMOGLOBIN A1c (test code = 69534) 9.3 % HEMOGLOBIN [id number] 00:00:00 Test Item Value Reference Range Interpretation Comments HEMOGLOBIN A1c (test code = 62190) 9.3 % HEMOGLOBIN [id number] 00:00:00 Test Item Value Reference Range Interpretation Comments HEMOGLOBIN A1c (test code = 00688) 9.3 % HEMOGLOBIN [id number] 00:00:00 Test Item Value Reference Range Interpretation Comments HEMOGLOBIN A1c (test code = 17978) 9.3 % HEMOGLOBIN [id number] 00:00:00 Test Item Value Reference Range Interpretation Comments HEMOGLOBIN A1c (test code = 58851) 9.3 % HEMOGLOBIN [id number] 00:00:00 Test Item Value Reference Range Interpretation Comments HEMOGLOBIN A1c (test code = 28327) 9.3 % HEMOGLOBIN [id number] 00:00:00 Test Item Value Reference Range Interpretation Comments HEMOGLOBIN A1c (test code = 75366) 9.3 % HEMOGLOBIN [id number] 00:00:00 Test Item Value Reference Range Interpretation Comments HEMOGLOBIN A1c (test code = 75393) 9.3 % HEMOGLOBIN [id number] 00:00:00 Test Item Value Reference Range Interpretation Comments HEMOGLOBIN A1c (test code = 97241) 9.3 % HEMOGLOBIN [id number] 00:00:00 Test Item Value Reference Range Interpretation Comments HEMOGLOBIN A1c (test code = 30889) 9.3 % HEMOGLOBIN [id number] 00:00:00 Test Item Value Reference Range Interpretation Comments HEMOGLOBIN A1c (test code = 31606) 9.3 % URIC [id number] 00:00:00 Test Item Value Reference Range Interpretation Comments URIC ACID (test code = 2233) 5.4 MG/DL MICROALBUMIN/CREATININE, RANDOM AND [id number] 00:00:00 Test Item Value Reference Range Interpretation Comments CREATININE, URINE, CONC. (test 88.0 MG/DL code = 2072) ALBUMIN, URINE, RANDOM (test code 19.5 MG/DL = 17451) CALC ALBUMIN/CREAT, RND (test code 222 MG/G = 36013) SEDIMENTATION [id number] 00:00:00 Test Item Value Reference Range Interpretation Comments SEDIMENTATION RATE (test code = 5 MM/HOUR 1017) HEMOGLOBIN [id number] 00:00:00 Test Item Value Reference Range Interpretation Comments HEMOGLOBIN A1c (test code = 39247) 8.7 % HEMOGLOBIN [id number] 00:00:00 Test Item Value Reference Range Interpretation Comments HEMOGLOBIN A1c (test code = 14333) 8.7 % HEMOGLOBIN [id number] 00:00:00 Test Item Value Reference Range Interpretation Comments HEMOGLOBIN A1c (test code = 61523) 8.7 % LIPID [id number] 00:00:00 Test Item Value Reference Range Interpretation Comments CHOLESTEROL (test code = 2210) 241 MG/DL TRIGLYCERIDES (test code = 2232) 344 MG/DL HDL CHOLESTEROL (test code = 2220) 48 MG/DL CALC LDL CHOL (test code = 2237) 140 MG/DL RISK RATIO LDL/HDL (test code = 2.92 RATIO 2238) LIPID [id number] 00:00:00 Test Item Value Reference Range Interpretation Comments CHOLESTEROL (test code = 2210) 241 MG/DL TRIGLYCERIDES (test code = 2232) 344 MG/DL HDL CHOLESTEROL (test code = 2220) 48 MG/DL CALC LDL CHOL (test code = 2237) 140 MG/DL RISK RATIO LDL/HDL (test code = 2.92 RATIO 2238) COMPREHENSIVE METABOLIC [id number] 00:00:00 Test Item Value Reference Range Interpretation Comments GLUCOSE (test code = 2217) 255 MG/DL BUN (test code = 2208) 16 MG/DL CREATININE (test code = 2214) 1.27 MG/DL eGFR (2020 CKD-EPI) (test code 68 ML/MIN/1.73 = 13790) CALC BUN/CREAT (test code = 13 RATIO 2235) SODIUM (test code = 2231) 139 MEQ/L POTASSIUM (test code = 2228) 4.6 MEQ/L CHLORIDE (test code = 2215) 95 MEQ/L CARBON DIOXIDE (test code = 32 MEQ/L 2205) CALCIUM (test code = 2209) 9.9 MG/DL PROTEIN, TOTAL (test code = 8.2 G/DL 2228) ALBUMIN (test code = 2201) 4.5 G/DL CALC GLOBULIN (test code = 3.7 G/DL 2240) CALC A/G RATIO (test code = 1.2 RATIO 2234) BILIRUBIN, TOTAL (test code = 0.4 MG/DL 2206) ALKALINE PHOSPHATASE (test 136 U/L code = 2204) AST (test code = 2218) 19 U/L ALT (test code = 2219) 39 U/L COMPREHENSIVE METABOLIC [id number] 00:00:00 Test Item Value Reference Range Interpretation Comments GLUCOSE (test code = 2217) 255 MG/DL BUN (test code = 2208) 16 MG/DL CREATININE (test code = 2214) 1.27 MG/DL eGFR (2020 CKD-EPI) (test code 68 ML/MIN/1.73 = 27710) CALC BUN/CREAT (test code = 13 RATIO 2235) SODIUM (test code = 2231) 139 MEQ/L POTASSIUM (test code = 2228) 4.6 MEQ/L CHLORIDE (test code = 2215) 95 MEQ/L CARBON DIOXIDE (test code = 32 MEQ/L 2205) CALCIUM (test code = 2209) 9.9 MG/DL PROTEIN, TOTAL (test code = 8.2 G/DL 2228) ALBUMIN (test code = 2201) 4.5 G/DL CALC GLOBULIN (test code = 3.7 G/DL 2240) CALC A/G RATIO (test code = 1.2 RATIO 2234) BILIRUBIN, TOTAL (test code = 0.4 MG/DL 2206) ALKALINE PHOSPHATASE (test 136 U/L code = 2204) AST (test code = 2218) 19 U/L ALT (test code = 2219) 39 U/L URIC [id number] 00:00:00 Test Item Value Reference Range Interpretation Comments URIC ACID (test code = 2233) 5.4 MG/DL URIC [id number] 00:00:00 Test Item Value Reference Range Interpretation Comments URIC ACID (test code = 2233) 5.4 MG/DL MICROALBUMIN/CREATININE, RANDOM AND [id number] 00:00:00 Test Item Value Reference Range Interpretation Comments CREATININE, URINE, CONC. (test 88.0 MG/DL code = 2072) ALBUMIN, URINE, RANDOM (test code 19.5 MG/DL = 28305) CALC ALBUMIN/CREAT, RND (test code 222 MG/G = 04266) MICROALBUMIN/CREATININE, RANDOM AND [id number] 00:00:00 Test Item Value Reference Range Interpretation Comments CREATININE, URINE, CONC. (test 88.0 MG/DL code = 2072) ALBUMIN, URINE, RANDOM (test code 19.5 MG/DL = 49037) CALC ALBUMIN/CREAT, RND (test code 222 MG/G = 03765) SEDIMENTATION [id number] 00:00:00 Test Item Value Reference Range Interpretation Comments SEDIMENTATION RATE (test code = 5 MM/HOUR 1017) SEDIMENTATION [id number] 00:00:00 Test Item Value Reference Range Interpretation Comments SEDIMENTATION RATE (test code = 5 MM/HOUR 1017) HEMOGLOBIN [id number] 00:00:00 Test Item Value Reference Range Interpretation Comments HEMOGLOBIN A1c (test code = 84680) 8.7 % HEMOGLOBIN [id number] 00:00:00 Test Item Value Reference Range Interpretation Comments HEMOGLOBIN A1c (test code = 91354) 8.7 % HEMOGLOBIN [id number] 00:00:00 Test Item Value Reference Range Interpretation Comments HEMOGLOBIN A1c (test code = 34081) 8.7 % LIPID [id number] 00:00:00 Test Item Value Reference Range Interpretation Comments CHOLESTEROL (test code = 2210) 241 MG/DL TRIGLYCERIDES (test code = 2232) 344 MG/DL HDL CHOLESTEROL (test code = 2220) 48 MG/DL CALC LDL CHOL (test code = 2237) 140 MG/DL RISK RATIO LDL/HDL (test code = 2.92 RATIO 2238) LIPID [id number] 00:00:00 Test Item Value Reference Range Interpretation Comments CHOLESTEROL (test code = 2210) 241 MG/DL TRIGLYCERIDES (test code = 2232) 344 MG/DL HDL CHOLESTEROL (test code = 2220) 48 MG/DL CALC LDL CHOL (test code = 2237) 140 MG/DL RISK RATIO LDL/HDL (test code = 2.92 RATIO 2238) COMPREHENSIVE METABOLIC [id number] 00:00:00 Test Item Value Reference Range Interpretation Comments GLUCOSE (test code = 2217) 255 MG/DL BUN (test code = 2208) 16 MG/DL CREATININE (test code = 2214) 1.27 MG/DL eGFR (2020 CKD-EPI) (test code 68 ML/MIN/1.73 = 04063) CALC BUN/CREAT (test code = 13 RATIO 2235) SODIUM (test code = 2231) 139 MEQ/L POTASSIUM (test code = 2228) 4.6 MEQ/L CHLORIDE (test code = 2215) 95 MEQ/L CARBON DIOXIDE (test code = 32 MEQ/L 2205) CALCIUM (test code = 2209) 9.9 MG/DL PROTEIN, TOTAL (test code = 8.2 G/DL 2228) ALBUMIN (test code = 2201) 4.5 G/DL CALC GLOBULIN (test code = 3.7 G/DL 2239) CALC A/G RATIO (test code = 1.2 RATIO 223) BILIRUBIN, TOTAL (test code = 0.4 MG/DL 2206) ALKALINE PHOSPHATASE (test 136 U/L code = 2203) AST (test code = 2218) 19 U/L ALT (test code = 2219) 39 U/L COMPREHENSIVE METABOLIC [id number] 00:00:00 Test Item Value Reference Range Interpretation Comments GLUCOSE (test code = 2217) 255 MG/DL BUN (test code = 2208) 16 MG/DL CREATININE (test code = 2214) 1.27 MG/DL eGFR (2020 CKD-EPI) (test code 68 ML/MIN/1.73 = 98574) CALC BUN/CREAT (test code = 13 RATIO 2235) SODIUM (test code = 2231) 139 MEQ/L POTASSIUM (test code = 2228) 4.6 MEQ/L CHLORIDE (test code = 2215) 95 MEQ/L CARBON DIOXIDE (test code = 32 MEQ/L 2205) CALCIUM (test code = 2209) 9.9 MG/DL PROTEIN, TOTAL (test code = 8.2 G/DL 2228) ALBUMIN (test code = 2201) 4.5 G/DL CALC GLOBULIN (test code = 3.7 G/DL 2240) CALC A/G RATIO (test code = 1.2 RATIO 2234) BILIRUBIN, TOTAL (test code = 0.4 MG/DL 2206) ALKALINE PHOSPHATASE (test 136 U/L code = 2204) AST (test code = 2218) 19 U/L ALT (test code = 2219) 39 U/L URIC [id number] 00:00:00 Test Item Value Reference Range Interpretation Comments URIC ACID (test code = 2233) 5.4 MG/DL URIC [id number] 00:00:00 Test Item Value Reference Range Interpretation Comments URIC ACID (test code = 2233) 5.4 MG/DL MICROALBUMIN/CREATININE, RANDOM AND [id number] 00:00:00 Test Item Value Reference Range Interpretation Comments CREATININE, URINE, CONC. (test 88.0 MG/DL code = 2072) ALBUMIN, URINE, RANDOM (test code 19.5 MG/DL = 77131) CALC ALBUMIN/CREAT, RND (test code 222 MG/G = 42771) MICROALBUMIN/CREATININE, RANDOM AND [id number] 00:00:00 Test Item Value Reference Range Interpretation Comments CREATININE, URINE, CONC. (test 88.0 MG/DL code = 2072) ALBUMIN, URINE, RANDOM (test code 19.5 MG/DL = 49374) CALC ALBUMIN/CREAT, RND (test code 222 MG/G = 42275) SEDIMENTATION [id number] 00:00:00 Test Item Value Reference Range Interpretation Comments SEDIMENTATION RATE (test code = 5 MM/HOUR 1017) SEDIMENTATION [id number] 00:00:00 Test Item Value Reference Range Interpretation Comments SEDIMENTATION RATE (test code = 5 MM/HOUR 1017) HEMOGLOBIN [id number] 00:00:00 Test Item Value Reference Range Interpretation Comments HEMOGLOBIN A1c (test code = 70333) 8.7 % HEMOGLOBIN [id number] 00:00:00 Test Item Value Reference Range Interpretation Comments HEMOGLOBIN A1c (test code = 45598) 8.7 % LIPID [id number] 00:00:00 Test Item Value Reference Range Interpretation Comments CHOLESTEROL (test code = 2210) 241 MG/DL TRIGLYCERIDES (test code = 2232) 344 MG/DL HDL CHOLESTEROL (test code = 2220) 48 MG/DL CALC LDL CHOL (test code = 2237) 140 MG/DL RISK RATIO LDL/HDL (test code = 2.92 RATIO 2238) COMPREHENSIVE METABOLIC [id number] 00:00:00 Test Item Value Reference Range Interpretation Comments GLUCOSE (test code = 2217) 255 MG/DL BUN (test code = 2208) 16 MG/DL CREATININE (test code = 2214) 1.27 MG/DL eGFR (2020 CKD-EPI) (test code 68 ML/MIN/1.73 = 93494) CALC BUN/CREAT (test code = 13 RATIO 2235) SODIUM (test code = 2231) 139 MEQ/L POTASSIUM (test code = 2228) 4.6 MEQ/L CHLORIDE (test code = 2215) 95 MEQ/L CARBON DIOXIDE (test code = 32 MEQ/L 2205) CALCIUM (test code = 2209) 9.9 MG/DL PROTEIN, TOTAL (test code = 8.2 G/DL 2228) ALBUMIN (test code = 220) 4.5 G/DL CALC GLOBULIN (test code = 3.7 G/DL 2239) CALC A/G RATIO (test code = 1.2 RATIO 2233) BILIRUBIN, TOTAL (test code = 0.4 MG/DL 2206) ALKALINE PHOSPHATASE (test 136 U/L code = 2204) AST (test code = 2218) 19 U/L ALT (test code = 2219) 39 U/L URIC [id number] 00:00:00 Test Item Value Reference Range Interpretation Comments URIC ACID (test code = 2233) 5.4 MG/DL MICROALBUMIN/CREATININE, RANDOM AND [id number] 00:00:00 Test Item Value Reference Range Interpretation Comments CREATININE, URINE, CONC. (test 88.0 MG/DL code = 2072) ALBUMIN, URINE, RANDOM (test code 19.5 MG/DL = 76179) CALC ALBUMIN/CREAT, RND (test code 222 MG/G = 37863) SEDIMENTATION [id number] 00:00:00 Test Item Value Reference Range Interpretation Comments SEDIMENTATION RATE (test code = 5 MM/HOUR 1017) HEMOGLOBIN [id number] 00:00:00 Test Item Value Reference Range Interpretation Comments HEMOGLOBIN A1c (test code = 94923) 8.7 % HEMOGLOBIN [id number] 00:00:00 Test Item Value Reference Range Interpretation Comments HEMOGLOBIN A1c (test code = 00616) 8.7 % LIPID [id number] 00:00:00 Test Item Value Reference Range Interpretation Comments CHOLESTEROL (test code = 2210) 241 MG/DL TRIGLYCERIDES (test code = 2232) 344 MG/DL HDL CHOLESTEROL (test code = 2220) 48 MG/DL CALC LDL CHOL (test code = 2237) 140 MG/DL RISK RATIO LDL/HDL (test code = 2.92 RATIO 2238) COMPREHENSIVE METABOLIC [id number] 00:00:00 Test Item Value Reference Range Interpretation Comments GLUCOSE (test code = 2217) 255 MG/DL BUN (test code = 2208) 16 MG/DL CREATININE (test code = 2214) 1.27 MG/DL eGFR (2020 CKD-EPI) (test code 68 ML/MIN/1.73 = 39379) CALC BUN/CREAT (test code = 13 RATIO 2235) SODIUM (test code = 223) 139 MEQ/L POTASSIUM (test code = 2228) 4.6 MEQ/L CHLORIDE (test code = 2215) 95 MEQ/L CARBON DIOXIDE (test code = 32 MEQ/L 2205) CALCIUM (test code = 2209) 9.9 MG/DL PROTEIN, TOTAL (test code = 8.2 G/DL 2228) ALBUMIN (test code = 220) 4.5 G/DL CALC GLOBULIN (test code = 3.7 G/DL 2239) CALC A/G RATIO (test code = 1.2 RATIO 2233) BILIRUBIN, TOTAL (test code = 0.4 MG/DL 2206) ALKALINE PHOSPHATASE (test 136 U/L code = 2204) AST (test code = 2218) 19 U/L ALT (test code = 2219) 39 U/L URIC [id number] 00:00:00 Test Item Value Reference Range Interpretation Comments URIC ACID (test code = 2233) 5.4 MG/DL MICROALBUMIN/CREATININE, RANDOM AND [id number] 00:00:00 Test Item Value Reference Range Interpretation Comments CREATININE, URINE, CONC. (test 88.0 MG/DL code = 2071) ALBUMIN, URINE, RANDOM (test code 19.5 MG/DL = 80417) CALC ALBUMIN/CREAT, RND (test code 222 MG/G = 85590) SEDIMENTATION [id number] 00:00:00 Test Item Value Reference Range Interpretation Comments SEDIMENTATION RATE (test code = 5 MM/HOUR 1017) HEMOGLOBIN [id number] 00:00:00 Test Item Value Reference Range Interpretation Comments HEMOGLOBIN A1c (test code = 65202) 8.7 % HEMOGLOBIN [id number] 00:00:00 Test Item Value Reference Range Interpretation Comments HEMOGLOBIN A1c (test code = 84982) 8.7 % HEMOGLOBIN [id number] 00:00:00 Test Item Value Reference Range Interpretation Comments HEMOGLOBIN A1c (test code = 81543) 8.7 % LIPID [id number] 00:00:00 Test Item Value Reference Range Interpretation Comments CHOLESTEROL (test code = 2210) 241 MG/DL TRIGLYCERIDES (test code = 2232) 344 MG/DL HDL CHOLESTEROL (test code = 2220) 48 MG/DL CALC LDL CHOL (test code = 2237) 140 MG/DL RISK RATIO LDL/HDL (test code = 2.92 RATIO 2238) LIPID [id number] 00:00:00 Test Item Value Reference Range Interpretation Comments CHOLESTEROL (test code = 2210) 241 MG/DL TRIGLYCERIDES (test code = 2232) 344 MG/DL HDL CHOLESTEROL (test code = 2220) 48 MG/DL CALC LDL CHOL (test code = 2237) 140 MG/DL RISK RATIO LDL/HDL (test code = 2.92 RATIO 2238) COMPREHENSIVE METABOLIC [id number] 00:00:00 Test Item Value Reference Range Interpretation Comments GLUCOSE (test code = 2217) 255 MG/DL BUN (test code = 2208) 16 MG/DL CREATININE (test code = 2214) 1.27 MG/DL eGFR (2020 CKD-EPI) (test code 68 ML/MIN/1.73 = 74663) CALC BUN/CREAT (test code = 13 RATIO 2235) SODIUM (test code = 2231) 139 MEQ/L POTASSIUM (test code = 2228) 4.6 MEQ/L CHLORIDE (test code = 2215) 95 MEQ/L CARBON DIOXIDE (test code = 32 MEQ/L 2205) CALCIUM (test code = 2209) 9.9 MG/DL PROTEIN, TOTAL (test code = 8.2 G/DL 2228) ALBUMIN (test code = 220) 4.5 G/DL CALC GLOBULIN (test code = 3.7 G/DL 2239) CALC A/G RATIO (test code = 1.2 RATIO 2234) BILIRUBIN, TOTAL (test code = 0.4 MG/DL 2206) ALKALINE PHOSPHATASE (test 136 U/L code = 2204) AST (test code = 2218) 19 U/L ALT (test code = 2219) 39 U/L COMPREHENSIVE METABOLIC [id number] 00:00:00 Test Item Value Reference Range Interpretation Comments GLUCOSE (test code = 2217) 255 MG/DL BUN (test code = 2208) 16 MG/DL CREATININE (test code = 2214) 1.27 MG/DL eGFR (2020 CKD-EPI) (test code 68 ML/MIN/1.73 = 79821) CALC BUN/CREAT (test code = 13 RATIO 2235) SODIUM (test code = 2231) 139 MEQ/L POTASSIUM (test code = 2228) 4.6 MEQ/L CHLORIDE (test code = 2215) 95 MEQ/L CARBON DIOXIDE (test code = 32 MEQ/L 2205) CALCIUM (test code = 2209) 9.9 MG/DL PROTEIN, TOTAL (test code = 8.2 G/DL 2228) ALBUMIN (test code = 220) 4.5 G/DL CALC GLOBULIN (test code = 3.7 G/DL 2239) CALC A/G RATIO (test code = 1.2 RATIO 2233) BILIRUBIN, TOTAL (test code = 0.4 MG/DL 2206) ALKALINE PHOSPHATASE (test 136 U/L code = 2204) AST (test code = 2218) 19 U/L ALT (test code = 2219) 39 U/L URIC [id number] 00:00:00 Test Item Value Reference Range Interpretation Comments URIC ACID (test code = 2233) 5.4 MG/DL URIC [id number] 00:00:00 Test Item Value Reference Range Interpretation Comments URIC ACID (test code = 2233) 5.4 MG/DL MICROALBUMIN/CREATININE, RANDOM AND [id number] 00:00:00 Test Item Value Reference Range Interpretation Comments CREATININE, URINE, CONC. (test 88.0 MG/DL code = 2072) ALBUMIN, URINE, RANDOM (test code 19.5 MG/DL = 88647) CALC ALBUMIN/CREAT, RND (test code 222 MG/G = 51687) MICROALBUMIN/CREATININE, RANDOM AND [id number] 00:00:00 Test Item Value Reference Range Interpretation Comments CREATININE, URINE, CONC. (test 88.0 MG/DL code = 2072) ALBUMIN, URINE, RANDOM (test code 19.5 MG/DL = 42050) CALC ALBUMIN/CREAT, RND (test code 222 MG/G = 92696) SEDIMENTATION [id number] 00:00:00 Test Item Value Reference Range Interpretation Comments SEDIMENTATION RATE (test code = 5 MM/HOUR 1017) SEDIMENTATION [id number] 00:00:00 Test Item Value Reference Range Interpretation Comments SEDIMENTATION RATE (test code = 5 MM/HOUR 1017) HEMOGLOBIN [id number] 00:00:00 Test Item Value Reference Range Interpretation Comments HEMOGLOBIN A1c (test code = 28099) 8.7 % HEMOGLOBIN [id number] 00:00:00 Test Item Value Reference Range Interpretation Comments HEMOGLOBIN A1c (test code = 20407) 8.7 % HEMOGLOBIN [id number] 00:00:00 Test Item Value Reference Range Interpretation Comments HEMOGLOBIN A1c (test code = 78811) 8.7 % LIPID [id number] 00:00:00 Test Item Value Reference Range Interpretation Comments CHOLESTEROL (test code = 2210) 241 MG/DL TRIGLYCERIDES (test code = 2232) 344 MG/DL HDL CHOLESTEROL (test code = 2220) 48 MG/DL CALC LDL CHOL (test code = 2237) 140 MG/DL RISK RATIO LDL/HDL (test code = 2.92 RATIO 2238) LIPID [id number] 00:00:00 Test Item Value Reference Range Interpretation Comments CHOLESTEROL (test code = 2210) 241 MG/DL TRIGLYCERIDES (test code = 2232) 344 MG/DL HDL CHOLESTEROL (test code = 2220) 48 MG/DL CALC LDL CHOL (test code = 2237) 140 MG/DL RISK RATIO LDL/HDL (test code = 2.92 RATIO 2238) COMPREHENSIVE METABOLIC [id number] 00:00:00 Test Item Value Reference Range Interpretation Comments GLUCOSE (test code = 2217) 255 MG/DL BUN (test code = 2208) 16 MG/DL CREATININE (test code = 2214) 1.27 MG/DL eGFR (2020 CKD-EPI) (test code 68 ML/MIN/1.73 = 37966) CALC BUN/CREAT (test code = 13 RATIO 2235) SODIUM (test code = 2231) 139 MEQ/L POTASSIUM (test code = 2228) 4.6 MEQ/L CHLORIDE (test code = 2215) 95 MEQ/L CARBON DIOXIDE (test code = 32 MEQ/L 220) CALCIUM (test code = 2209) 9.9 MG/DL PROTEIN, TOTAL (test code = 8.2 G/DL 2228) ALBUMIN (test code = 2201) 4.5 G/DL CALC GLOBULIN (test code = 3.7 G/DL 2240) CALC A/G RATIO (test code = 1.2 RATIO 2234) BILIRUBIN, TOTAL (test code = 0.4 MG/DL 2206) ALKALINE PHOSPHATASE (test 136 U/L code = 2204) AST (test code = 2218) 19 U/L ALT (test code = 2219) 39 U/L COMPREHENSIVE METABOLIC [id number] 00:00:00 Test Item Value Reference Range Interpretation Comments GLUCOSE (test code = 2217) 255 MG/DL BUN (test code = 2208) 16 MG/DL CREATININE (test code = 2214) 1.27 MG/DL eGFR (2020 CKD-EPI) (test code 68 ML/MIN/1.73 = 33787) CALC BUN/CREAT (test code = 13 RATIO 2235) SODIUM (test code = 2231) 139 MEQ/L POTASSIUM (test code = 2228) 4.6 MEQ/L CHLORIDE (test code = 2215) 95 MEQ/L CARBON DIOXIDE (test code = 32 MEQ/L 2205) CALCIUM (test code = 2209) 9.9 MG/DL PROTEIN, TOTAL (test code = 8.2 G/DL 2228) ALBUMIN (test code = 2201) 4.5 G/DL CALC GLOBULIN (test code = 3.7 G/DL 2240) CALC A/G RATIO (test code = 1.2 RATIO 2234) BILIRUBIN, TOTAL (test code = 0.4 MG/DL 2206) ALKALINE PHOSPHATASE (test 136 U/L code = 2204) AST (test code = 2218) 19 U/L ALT (test code = 2219) 39 U/L URIC [id number] 00:00:00 Test Item Value Reference Range Interpretation Comments URIC ACID (test code = 2233) 5.4 MG/DL URIC [id number] 00:00:00 Test Item Value Reference Range Interpretation Comments URIC ACID (test code = 2233) 5.4 MG/DL MICROALBUMIN/CREATININE, RANDOM AND [id number] 00:00:00 Test Item Value Reference Range Interpretation Comments CREATININE, URINE, CONC. (test 88.0 MG/DL code = 2072) ALBUMIN, URINE, RANDOM (test code 19.5 MG/DL = 28263) CALC ALBUMIN/CREAT, RND (test code 222 MG/G = 76745) MICROALBUMIN/CREATININE, RANDOM AND [id number] 00:00:00 Test Item Value Reference Range Interpretation Comments CREATININE, URINE, CONC. (test 88.0 MG/DL code = 2072) ALBUMIN, URINE, RANDOM (test code 19.5 MG/DL = 26514) CALC ALBUMIN/CREAT, RND (test code 222 MG/G = 19036) SEDIMENTATION [id number] 00:00:00 Test Item Value Reference Range Interpretation Comments SEDIMENTATION RATE (test code = 5 MM/HOUR 1017) SEDIMENTATION [id number] 00:00:00 Test Item Value Reference Range Interpretation Comments SEDIMENTATION RATE (test code = 5 MM/HOUR 1017) HEMOGLOBIN [id number] 00:00:00 Test Item Value Reference Range Interpretation Comments HEMOGLOBIN A1c (test code = 13248) 8.7 % HEMOGLOBIN [id number] 00:00:00 Test Item Value Reference Range Interpretation Comments HEMOGLOBIN A1c (test code = 80364) 8.7 % LIPID [id number] 00:00:00 Test Item Value Reference Range Interpretation Comments CHOLESTEROL (test code = 2210) 241 MG/DL TRIGLYCERIDES (test code = 2232) 344 MG/DL HDL CHOLESTEROL (test code = 2220) 48 MG/DL CALC LDL CHOL (test code = 2237) 140 MG/DL RISK RATIO LDL/HDL (test code = 2.92 RATIO 2238) HEMOGLOBIN [id number] 00:00:00 Test Item Value Reference Range Interpretation Comments HEMOGLOBIN A1c (test code = 46187) 8.7 % HEMOGLOBIN [id number] 00:00:00 Test Item Value Reference Range Interpretation Comments HEMOGLOBIN A1c (test code = 07780) 8.7 % HEMOGLOBIN [id number] 00:00:00 Test Item Value Reference Range Interpretation Comments HEMOGLOBIN A1c (test code = 46900) 8.7 % LIPID [id number] 00:00:00 Test Item Value Reference Range Interpretation Comments CHOLESTEROL (test code = 2210) 241 MG/DL TRIGLYCERIDES (test code = 2232) 344 MG/DL HDL CHOLESTEROL (test code = 2220) 48 MG/DL CALC LDL CHOL (test code = 2237) 140 MG/DL RISK RATIO LDL/HDL (test code = 2.92 RATIO 2238) LIPID [id number] 00:00:00 Test Item Value Reference Range Interpretation Comments CHOLESTEROL (test code = 2210) 241 MG/DL TRIGLYCERIDES (test code = 2232) 344 MG/DL HDL CHOLESTEROL (test code = 2220) 48 MG/DL CALC LDL CHOL (test code = 2237) 140 MG/DL RISK RATIO LDL/HDL (test code = 2.92 RATIO 2238) COMPREHENSIVE METABOLIC [id number] 00:00:00 Test Item Value Reference Range Interpretation Comments GLUCOSE (test code = 2217) 255 MG/DL BUN (test code = 2208) 16 MG/DL CREATININE (test code = 2214) 1.27 MG/DL eGFR (2020 CKD-EPI) (test code 68 ML/MIN/1.73 = 17142) CALC BUN/CREAT (test code = 13 RATIO 2235) SODIUM (test code = 2231) 139 MEQ/L POTASSIUM (test code = 2228) 4.6 MEQ/L CHLORIDE (test code = 2215) 95 MEQ/L CARBON DIOXIDE (test code = 32 MEQ/L 2205) CALCIUM (test code = 2209) 9.9 MG/DL PROTEIN, TOTAL (test code = 8.2 G/DL 2228) ALBUMIN (test code = 2201) 4.5 G/DL CALC GLOBULIN (test code = 3.7 G/DL 2240) CALC A/G RATIO (test code = 1.2 RATIO 2234) BILIRUBIN, TOTAL (test code = 0.4 MG/DL 2206) ALKALINE PHOSPHATASE (test 136 U/L code = 2204) AST (test code = 2218) 19 U/L ALT (test code = 2219) 39 U/L COMPREHENSIVE METABOLIC [id number] 00:00:00 Test Item Value Reference Range Interpretation Comments GLUCOSE (test code = 2217) 255 MG/DL BUN (test code = 2208) 16 MG/DL CREATININE (test code = 2214) 1.27 MG/DL eGFR (2020 CKD-EPI) (test code 68 ML/MIN/1.73 = 47628) CALC BUN/CREAT (test code = 13 RATIO 2235) SODIUM (test code = 2231) 139 MEQ/L POTASSIUM (test code = 2228) 4.6 MEQ/L CHLORIDE (test code = 2215) 95 MEQ/L CARBON DIOXIDE (test code = 32 MEQ/L 2205) CALCIUM (test code = 2209) 9.9 MG/DL PROTEIN, TOTAL (test code = 8.2 G/DL 2228) ALBUMIN (test code = 2201) 4.5 G/DL CALC GLOBULIN (test code = 3.7 G/DL 2239) CALC A/G RATIO (test code = 1.2 RATIO 2233) BILIRUBIN, TOTAL (test code = 0.4 MG/DL 2206) ALKALINE PHOSPHATASE (test 136 U/L code = 2204) AST (test code = 2218) 19 U/L ALT (test code = 2219) 39 U/L URIC [id number] 00:00:00 Test Item Value Reference Range Interpretation Comments URIC ACID (test code = 2233) 5.4 MG/DL URIC [id number] 00:00:00 Test Item Value Reference Range Interpretation Comments URIC ACID (test code = 2233) 5.4 MG/DL MICROALBUMIN/CREATININE, RANDOM AND [id number] 00:00:00 Test Item Value Reference Range Interpretation Comments CREATININE, URINE, CONC. (test 88.0 MG/DL code = 2072) ALBUMIN, URINE, RANDOM (test code 19.5 MG/DL = 31245) CALC ALBUMIN/CREAT, RND (test code 222 MG/G = 49762) MICROALBUMIN/CREATININE, RANDOM AND [id number] 00:00:00 Test Item Value Reference Range Interpretation Comments CREATININE, URINE, CONC. (test 88.0 MG/DL code = 2072) ALBUMIN, URINE, RANDOM (test code 19.5 MG/DL = 71374) CALC ALBUMIN/CREAT, RND (test code 222 MG/G = 36795) SEDIMENTATION [id number] 00:00:00 Test Item Value Reference Range Interpretation Comments SEDIMENTATION RATE (test code = 5 MM/HOUR 1017) SEDIMENTATION [id number] 00:00:00 Test Item Value Reference Range Interpretation Comments SEDIMENTATION RATE (test code = 5 MM/HOUR 1017) COMPREHENSIVE METABOLIC [id number] 00:00:00 Test Item Value Reference Range Interpretation Comments GLUCOSE (test code = 2217) 255 MG/DL BUN (test code = 2208) 16 MG/DL CREATININE (test code = 2214) 1.27 MG/DL eGFR (2020 CKD-EPI) (test code 68 ML/MIN/1.73 = 93500) CALC BUN/CREAT (test code = 13 RATIO 5) SODIUM (test code = 2231) 139 MEQ/L POTASSIUM (test code = 2228) 4.6 MEQ/L CHLORIDE (test code = 2215) 95 MEQ/L CARBON DIOXIDE (test code = 32 MEQ/L 2205) CALCIUM (test code = 2209) 9.9 MG/DL PROTEIN, TOTAL (test code = 8.2 G/DL 2228) ALBUMIN (test code = 2201) 4.5 G/DL CALC GLOBULIN (test code = 3.7 G/DL 2239) CALC A/G RATIO (test code = 1.2 RATIO 2233) BILIRUBIN, TOTAL (test code = 0.4 MG/DL 2206) ALKALINE PHOSPHATASE (test 136 U/L code = 2204) AST (test code = 2218) 19 U/L ALT (test code = 2219) 39 U/L [id number] 00:00:00 Test Item Value Reference Range Interpretation Comments TSH, THIRD GENERATION (test code 0.949 UIU/ML = 2821) [id number] 00:00:00 Test Item Value Reference Range Interpretation Comments TSH, THIRD GENERATION (test code 0.949 UIU/ML = 2821) HEMOGLOBIN [id number] 00:00:00 Test Item Value Reference Range Interpretation Comments HEMOGLOBIN A1c (test code = 65809) 7.7 % HEMOGLOBIN [id number] 00:00:00 Test Item Value Reference Range Interpretation Comments HEMOGLOBIN A1c (test code = 38356) 7.7 % HEMOGLOBIN [id number] 00:00:00 Test Item Value Reference Range Interpretation Comments HEMOGLOBIN A1c (test code = 66553) 7.7 % LIPID [id number] 00:00:00 Test Item Value Reference Range Interpretation Comments CHOLESTEROL (test code = 2210) 167 MG/DL TRIGLYCERIDES (test code = 2232) 263 MG/DL HDL CHOLESTEROL (test code = 2220) 40 MG/DL CALC LDL CHOL (test code = 2237) 92 MG/DL RISK RATIO LDL/HDL (test code = 2.30 RATIO 2238) LIPID [id number] 00:00:00 Test Item Value Reference Range Interpretation Comments CHOLESTEROL (test code = 2210) 167 MG/DL TRIGLYCERIDES (test code = 2232) 263 MG/DL HDL CHOLESTEROL (test code = 2220) 40 MG/DL CALC LDL CHOL (test code = 2237) 92 MG/DL RISK RATIO LDL/HDL (test code = 2.30 RATIO 2238) CBC W/AUTO [id number] 00:00:00 Test Item Value Reference Range Interpretation Comments WBC (test code = 1001) 10.5 K/UL RBC (test code = 1002) 5.77 M/UL HEMOGLOBIN (test code = 1003) 12.8 G/DL HEMATOCRIT (test code = 1004) 43.2 % MCV (test code = 1005) 74.9 fL MCH (test code = 1006) 22.2 PG MCHC (test code = 1007) 29.6 G/DL RDW (test code = 1038) 14.1 % NEUTROPHILS (test code = 1008) 68.4 % LYMPHOCYTES (test code = 1010) 18.2 % MONOCYTES (test code = 1011) 10.2 % EOSINOPHILS (test code = 1012) 2.3 % BASOPHILS (test code = 1013) 0.2 % IMMATURE GRANULOCYTES (test 0.7 % code = 1036) NUCLEATED RBCS (test code = 0.0 /100WBC'S 1065) PLATELET COUNT (test code = 273 K/UL 1015) ABSOLUTE NEUTROPHILS (test code 7.21 K/UL = 1066) ABSOLUTE LYMPHOCYTES (test code 1.92 K/UL = 1067) ABSOLUTE MONOCYTES (test code = 1.07 K/UL 1068) ABSOLUTE EOSINOPHILS (test code 0.24 K/UL = 1040) ABSOLUTE BASOPHILS (test code = 0.02 K/UL 1069) ABS IMMATURE GRANULOCYTES (test 0.07 K/UL code = 1020) ABS NUCLEATED RBCS (test code = 0.00 K/UL 88669) CBC W/AUTO [id number] 00:00:00 Test Item Value Reference Range Interpretation Comments WBC (test code = 1001) 10.5 K/UL RBC (test code = 1002) 5.77 M/UL HEMOGLOBIN (test code = 1003) 12.8 G/DL HEMATOCRIT (test code = 1004) 43.2 % MCV (test code = 1005) 74.9 fL MCH (test code = 1006) 22.2 PG MCHC (test code = 1007) 29.6 G/DL RDW (test code = 1038) 14.1 % NEUTROPHILS (test code = 1008) 68.4 % LYMPHOCYTES (test code = 1010) 18.2 % MONOCYTES (test code = 1011) 10.2 % EOSINOPHILS (test code = 1012) 2.3 % BASOPHILS (test code = 1013) 0.2 % IMMATURE GRANULOCYTES (test 0.7 % code = 1036) NUCLEATED RBCS (test code = 0.0 /100WBC'S 1065) PLATELET COUNT (test code = 273 K/UL 1015) ABSOLUTE NEUTROPHILS (test code 7.21 K/UL = 1066) ABSOLUTE LYMPHOCYTES (test code 1.92 K/UL = 1067) ABSOLUTE MONOCYTES (test code = 1.07 K/UL 1068) ABSOLUTE EOSINOPHILS (test code 0.24 K/UL = 1040) ABSOLUTE BASOPHILS (test code = 0.02 K/UL 1069) ABS IMMATURE GRANULOCYTES (test 0.07 K/UL code = 1020) ABS NUCLEATED RBCS (test code = 0.00 K/UL 96607) CBC W/AUTO [id number] 00:00:00 Test Item Value Reference Range Interpretation Comments WBC (test code = 1001) 10.5 K/UL RBC (test code = 1002) 5.77 M/UL HEMOGLOBIN (test code = 1003) 12.8 G/DL HEMATOCRIT (test code = 1004) 43.2 % MCV (test code = 1005) 74.9 fL MCH (test code = 1006) 22.2 PG MCHC (test code = 1007) 29.6 G/DL RDW (test code = 1038) 14.1 % NEUTROPHILS (test code = 1008) 68.4 % LYMPHOCYTES (test code = 1010) 18.2 % MONOCYTES (test code = 1011) 10.2 % EOSINOPHILS (test code = 1012) 2.3 % BASOPHILS (test code = 1013) 0.2 % IMMATURE GRANULOCYTES (test 0.7 % code = 1036) NUCLEATED RBCS (test code = 0.0 /100WBC'S 1065) PLATELET COUNT (test code = 273 K/UL 1015) ABSOLUTE NEUTROPHILS (test code 7.21 K/UL = 1066) ABSOLUTE LYMPHOCYTES (test code 1.92 K/UL = 1067) ABSOLUTE MONOCYTES (test code = 1.07 K/UL 1068) ABSOLUTE EOSINOPHILS (test code 0.24 K/UL = 1040) ABSOLUTE BASOPHILS (test code = 0.02 K/UL 1069) ABS IMMATURE GRANULOCYTES (test 0.07 K/UL code = 1020) ABS NUCLEATED RBCS (test code = 0.00 K/UL 50085) COMPREHENSIVE METABOLIC [id number] 00:00:00 Test Item Value Reference Range Interpretation Comments GLUCOSE (test code = 2217) 264 MG/DL BUN (test code = 2208) 12 MG/DL CREATININE (test code = 2214) 1.13 MG/DL eGFR AMER. (test code 86 ML/MIN/1.73 = 61653) eGFR NON- AMER. (test 74 ML/MIN/1.73 code = 38090) CALC BUN/CREAT (test code = 11 RATIO 2235) SODIUM (test code = 2231) 138 MEQ/L POTASSIUM (test code = 2228) 4.6 MEQ/L CHLORIDE (test code = 2215) 97 MEQ/L CARBON DIOXIDE (test code = 27 MEQ/L 2206) CALCIUM (test code = 2209) 9.3 MG/DL PROTEIN, TOTAL (test code = 8.0 G/DL 222) ALBUMIN (test code = 2201) 4.2 G/DL CALC GLOBULIN (test code = 3.8 G/DL 2240) CALC A/G RATIO (test code = 1.1 RATIO 2234) BILIRUBIN, TOTAL (test code = 0.6 MG/DL 2207) ALKALINE PHOSPHATASE (test 133 U/L code = 2204) AST (test code = 2218) 21 U/L ALT (test code = 2219) 35 U/L COMPREHENSIVE METABOLIC [id number] 00:00:00 Test Item Value Reference Range Interpretation Comments GLUCOSE (test code = 2217) 264 MG/DL BUN (test code = 2208) 12 MG/DL CREATININE (test code = 2214) 1.13 MG/DL eGFR AMER. (test code 86 ML/MIN/1.73 = 36991) eGFR NON- AMER. (test 74 ML/MIN/1.73 code = 61301) CALC BUN/CREAT (test code = 11 RATIO 5) SODIUM (test code = 2231) 138 MEQ/L POTASSIUM (test code = 2228) 4.6 MEQ/L CHLORIDE (test code = 2215) 97 MEQ/L CARBON DIOXIDE (test code = 27 MEQ/L 2205) CALCIUM (test code = 2209) 9.3 MG/DL PROTEIN, TOTAL (test code = 8.0 G/DL 2228) ALBUMIN (test code = 2201) 4.2 G/DL CALC GLOBULIN (test code = 3.8 G/DL 2239) CALC A/G RATIO (test code = 1.1 RATIO 2233) BILIRUBIN, TOTAL (test code = 0.6 MG/DL 2206) ALKALINE PHOSPHATASE (test 133 U/L code = 2204) AST (test code = 2218) 21 U/L ALT (test code = 2219) 35 U/L [id number] 00:00:00 Test Item Value Reference Range Interpretation Comments TSH, THIRD GENERATION (test code 0.949 UIU/ML = 2821) [id number] 00:00:00 Test Item Value Reference Range Interpretation Comments TSH, THIRD GENERATION (test code 0.949 UIU/ML = 2821) [id number] 00:00:00 Test Item Value Reference Range Interpretation Comments TSH, THIRD GENERATION (test code 0.949 UIU/ML = 2821) HEMOGLOBIN [id number] 00:00:00 Test Item Value Reference Range Interpretation Comments HEMOGLOBIN A1c (test code = 35865) 7.7 % HEMOGLOBIN [id number] 00:00:00 Test Item Value Reference Range Interpretation Comments HEMOGLOBIN A1c (test code = 14108) 7.7 % HEMOGLOBIN [id number] 00:00:00 Test Item Value Reference Range Interpretation Comments HEMOGLOBIN A1c (test code = 90730) 7.7 % LIPID [id number] 00:00:00 Test Item Value Reference Range Interpretation Comments CHOLESTEROL (test code = 2210) 167 MG/DL TRIGLYCERIDES (test code = 2232) 263 MG/DL HDL CHOLESTEROL (test code = 2220) 40 MG/DL CALC LDL CHOL (test code = 2237) 92 MG/DL RISK RATIO LDL/HDL (test code = 2.30 RATIO 2238) LIPID [id number] 00:00:00 Test Item Value Reference Range Interpretation Comments CHOLESTEROL (test code = 2210) 167 MG/DL TRIGLYCERIDES (test code = 2232) 263 MG/DL HDL CHOLESTEROL (test code = 2220) 40 MG/DL CALC LDL CHOL (test code = 2237) 92 MG/DL RISK RATIO LDL/HDL (test code = 2.30 RATIO 2238) CBC W/AUTO [id number] 00:00:00 Test Item Value Reference Range Interpretation Comments WBC (test code = 1001) 10.5 K/UL RBC (test code = 1002) 5.77 M/UL HEMOGLOBIN (test code = 1003) 12.8 G/DL HEMATOCRIT (test code = 1004) 43.2 % MCV (test code = 1005) 74.9 fL MCH (test code = 1006) 22.2 PG MCHC (test code = 1007) 29.6 G/DL RDW (test code = 1038) 14.1 % NEUTROPHILS (test code = 1008) 68.4 % LYMPHOCYTES (test code = 1010) 18.2 % MONOCYTES (test code = 1011) 10.2 % EOSINOPHILS (test code = 1012) 2.3 % BASOPHILS (test code = 1013) 0.2 % IMMATURE GRANULOCYTES (test 0.7 % code = 1036) NUCLEATED RBCS (test code = 0.0 /100WBC'S 1065) PLATELET COUNT (test code = 273 K/UL 1015) ABSOLUTE NEUTROPHILS (test code 7.21 K/UL = 1066) ABSOLUTE LYMPHOCYTES (test code 1.92 K/UL = 1067) ABSOLUTE MONOCYTES (test code = 1.07 K/UL 1068) ABSOLUTE EOSINOPHILS (test code 0.24 K/UL = 1040) ABSOLUTE BASOPHILS (test code = 0.02 K/UL 1069) ABS IMMATURE GRANULOCYTES (test 0.07 K/UL code = 1020) ABS NUCLEATED RBCS (test code = 0.00 K/UL 67537) CBC W/AUTO [id number] 00:00:00 Test Item Value Reference Range Interpretation Comments WBC (test code = 1001) 10.5 K/UL RBC (test code = 1002) 5.77 M/UL HEMOGLOBIN (test code = 1003) 12.8 G/DL HEMATOCRIT (test code = 1004) 43.2 % MCV (test code = 1005) 74.9 fL MCH (test code = 1006) 22.2 PG MCHC (test code = 1007) 29.6 G/DL RDW (test code = 1038) 14.1 % NEUTROPHILS (test code = 1008) 68.4 % LYMPHOCYTES (test code = 1010) 18.2 % MONOCYTES (test code = 1011) 10.2 % EOSINOPHILS (test code = 1012) 2.3 % BASOPHILS (test code = 1013) 0.2 % IMMATURE GRANULOCYTES (test 0.7 % code = 1036) NUCLEATED RBCS (test code = 0.0 /100WBC'S 1065) PLATELET COUNT (test code = 273 K/UL 1015) ABSOLUTE NEUTROPHILS (test code 7.21 K/UL = 1066) ABSOLUTE LYMPHOCYTES (test code 1.92 K/UL = 1067) ABSOLUTE MONOCYTES (test code = 1.07 K/UL 1068) ABSOLUTE EOSINOPHILS (test code 0.24 K/UL = 1040) ABSOLUTE BASOPHILS (test code = 0.02 K/UL 1069) ABS IMMATURE GRANULOCYTES (test 0.07 K/UL code = 1020) ABS NUCLEATED RBCS (test code = 0.00 K/UL 84478) CBC W/AUTO [id number] 00:00:00 Test Item Value Reference Range Interpretation Comments WBC (test code = 1001) 10.5 K/UL RBC (test code = 1002) 5.77 M/UL HEMOGLOBIN (test code = 1003) 12.8 G/DL HEMATOCRIT (test code = 1004) 43.2 % MCV (test code = 1005) 74.9 fL MCH (test code = 1006) 22.2 PG MCHC (test code = 1007) 29.6 G/DL RDW (test code = 1038) 14.1 % NEUTROPHILS (test code = 1008) 68.4 % LYMPHOCYTES (test code = 1010) 18.2 % MONOCYTES (test code = 1011) 10.2 % EOSINOPHILS (test code = 1012) 2.3 % BASOPHILS (test code = 1013) 0.2 % IMMATURE GRANULOCYTES (test 0.7 % code = 1036) NUCLEATED RBCS (test code = 0.0 /100WBC'S 1065) PLATELET COUNT (test code = 273 K/UL 1015) ABSOLUTE NEUTROPHILS (test code 7.21 K/UL = 1066) ABSOLUTE LYMPHOCYTES (test code 1.92 K/UL = 1067) ABSOLUTE MONOCYTES (test code = 1.07 K/UL 1068) ABSOLUTE EOSINOPHILS (test code 0.24 K/UL = 1040) ABSOLUTE BASOPHILS (test code = 0.02 K/UL 1069) ABS IMMATURE GRANULOCYTES (test 0.07 K/UL code = 1020) ABS NUCLEATED RBCS (test code = 0.00 K/UL 55817) COMPREHENSIVE METABOLIC [id number] 00:00:00 Test Item Value Reference Range Interpretation Comments GLUCOSE (test code = 2217) 264 MG/DL BUN (test code = 2208) 12 MG/DL CREATININE (test code = 2214) 1.13 MG/DL eGFR AMER. (test code 86 ML/MIN/1.73 = 28573) eGFR NON- AMER. (test 74 ML/MIN/1.73 code = 73618) CALC BUN/CREAT (test code = 11 RATIO 2235) SODIUM (test code = 2231) 138 MEQ/L POTASSIUM (test code = 2228) 4.6 MEQ/L CHLORIDE (test code = 2215) 97 MEQ/L CARBON DIOXIDE (test code = 27 MEQ/L 2206) CALCIUM (test code = 2209) 9.3 MG/DL PROTEIN, TOTAL (test code = 8.0 G/DL 222) ALBUMIN (test code = 2201) 4.2 G/DL CALC GLOBULIN (test code = 3.8 G/DL 2240) CALC A/G RATIO (test code = 1.1 RATIO 2234) BILIRUBIN, TOTAL (test code = 0.6 MG/DL 220) ALKALINE PHOSPHATASE (test 133 U/L code = 2204) AST (test code = 2218) 21 U/L ALT (test code = 2219) 35 U/L COMPREHENSIVE METABOLIC [id number] 00:00:00 Test Item Value Reference Range Interpretation Comments GLUCOSE (test code = 2217) 264 MG/DL BUN (test code = 2208) 12 MG/DL CREATININE (test code = 2214) 1.13 MG/DL eGFR AMER. (test code 86 ML/MIN/1.73 = 25781) eGFR NON- AMER. (test 74 ML/MIN/1.73 code = 39912) CALC BUN/CREAT (test code = 11 RATIO 2235) SODIUM (test code = 2231) 138 MEQ/L POTASSIUM (test code = 2228) 4.6 MEQ/L CHLORIDE (test code = 2215) 97 MEQ/L CARBON DIOXIDE (test code = 27 MEQ/L 2205) CALCIUM (test code = 2209) 9.3 MG/DL PROTEIN, TOTAL (test code = 8.0 G/DL 2228) ALBUMIN (test code = 2201) 4.2 G/DL CALC GLOBULIN (test code = 3.8 G/DL 2239) CALC A/G RATIO (test code = 1.1 RATIO 2233) BILIRUBIN, TOTAL (test code = 0.6 MG/DL 2206) ALKALINE PHOSPHATASE (test 133 U/L code = 2204) AST (test code = 2218) 21 U/L ALT (test code = 2219) 35 U/L [id number] 00:00:00 Test Item Value Reference Range Interpretation Comments TSH, THIRD GENERATION (test code 0.949 UIU/ML = 2821) [id number] 00:00:00 Test Item Value Reference Range Interpretation Comments TSH, THIRD GENERATION (test code 0.949 UIU/ML = 2821) [id number] 00:00:00 Test Item Value Reference Range Interpretation Comments TSH, THIRD GENERATION (test code 0.949 UIU/ML = 2821) HEMOGLOBIN [id number] 00:00:00 Test Item Value Reference Range Interpretation Comments HEMOGLOBIN A1c (test code = 43495) 7.7 % HEMOGLOBIN [id number] 00:00:00 Test Item Value Reference Range Interpretation Comments HEMOGLOBIN A1c (test code = 07943) 7.7 % LIPID [id number] 00:00:00 Test Item Value Reference Range Interpretation Comments CHOLESTEROL (test code = 2210) 167 MG/DL TRIGLYCERIDES (test code = 2232) 263 MG/DL HDL CHOLESTEROL (test code = 2220) 40 MG/DL CALC LDL CHOL (test code = 2237) 92 MG/DL RISK RATIO LDL/HDL (test code = 2.30 RATIO 8) CBC W/AUTO [id number] 00:00:00 Test Item Value Reference Range Interpretation Comments WBC (test code = 1001) 10.5 K/UL RBC (test code = 1002) 5.77 M/UL HEMOGLOBIN (test code = 1003) 12.8 G/DL HEMATOCRIT (test code = 1004) 43.2 % MCV (test code = 1005) 74.9 fL MCH (test code = 1006) 22.2 PG MCHC (test code = 1007) 29.6 G/DL RDW (test code = 1038) 14.1 % NEUTROPHILS (test code = 1008) 68.4 % LYMPHOCYTES (test code = 1010) 18.2 % MONOCYTES (test code = 1011) 10.2 % EOSINOPHILS (test code = 1012) 2.3 % BASOPHILS (test code = 1013) 0.2 % IMMATURE GRANULOCYTES (test 0.7 % code = 1036) NUCLEATED RBCS (test code = 0.0 /100WBC'S 1065) PLATELET COUNT (test code = 273 K/UL 1015) ABSOLUTE NEUTROPHILS (test code 7.21 K/UL = 1066) ABSOLUTE LYMPHOCYTES (test code 1.92 K/UL = 1067) ABSOLUTE MONOCYTES (test code = 1.07 K/UL 1068) ABSOLUTE EOSINOPHILS (test code 0.24 K/UL = 1040) ABSOLUTE BASOPHILS (test code = 0.02 K/UL 1069) ABS IMMATURE GRANULOCYTES (test 0.07 K/UL code = 1020) ABS NUCLEATED RBCS (test code = 0.00 K/UL 37762) CBC W/AUTO [id number] 00:00:00 Test Item Value Reference Range Interpretation Comments WBC (test code = 1001) 10.5 K/UL RBC (test code = 1002) 5.77 M/UL HEMOGLOBIN (test code = 1003) 12.8 G/DL HEMATOCRIT (test code = 1004) 43.2 % MCV (test code = 1005) 74.9 fL MCH (test code = 1006) 22.2 PG MCHC (test code = 1007) 29.6 G/DL RDW (test code = 1038) 14.1 % NEUTROPHILS (test code = 1008) 68.4 % LYMPHOCYTES (test code = 1010) 18.2 % MONOCYTES (test code = 1011) 10.2 % EOSINOPHILS (test code = 1012) 2.3 % BASOPHILS (test code = 1013) 0.2 % IMMATURE GRANULOCYTES (test 0.7 % code = 1036) NUCLEATED RBCS (test code = 0.0 /100WBC'S 1065) PLATELET COUNT (test code = 273 K/UL 1015) ABSOLUTE NEUTROPHILS (test code 7.21 K/UL = 1066) ABSOLUTE LYMPHOCYTES (test code 1.92 K/UL = 1067) ABSOLUTE MONOCYTES (test code = 1.07 K/UL 1068) ABSOLUTE EOSINOPHILS (test code 0.24 K/UL = 1040) ABSOLUTE BASOPHILS (test code = 0.02 K/UL 1069) ABS IMMATURE GRANULOCYTES (test 0.07 K/UL code = 1020) ABS NUCLEATED RBCS (test code = 0.00 K/UL 70243) COMPREHENSIVE METABOLIC [id number] 00:00:00 Test Item Value Reference Range Interpretation Comments GLUCOSE (test code = 2217) 264 MG/DL BUN (test code = 2208) 12 MG/DL CREATININE (test code = 2214) 1.13 MG/DL eGFR AMER. (test code 86 ML/MIN/1.73 = 02008) eGFR NON- AMER. (test 74 ML/MIN/1.73 code = 77283) CALC BUN/CREAT (test code = 11 RATIO 2235) SODIUM (test code = 2231) 138 MEQ/L POTASSIUM (test code = 2228) 4.6 MEQ/L CHLORIDE (test code = 2215) 97 MEQ/L CARBON DIOXIDE (test code = 27 MEQ/L 2206) CALCIUM (test code = 2209) 9.3 MG/DL PROTEIN, TOTAL (test code = 8.0 G/DL 2228) ALBUMIN (test code = 2201) 4.2 G/DL CALC GLOBULIN (test code = 3.8 G/DL 2240) CALC A/G RATIO (test code = 1.1 RATIO 2234) BILIRUBIN, TOTAL (test code = 0.6 MG/DL 2206) ALKALINE PHOSPHATASE (test 133 U/L code = 2204) AST (test code = 2218) 21 U/L ALT (test code = 2219) 35 U/L [id number] 00:00:00 Test Item Value Reference Range Interpretation Comments TSH, THIRD GENERATION (test code 0.949 UIU/ML = 2821) [id number] 00:00:00 Test Item Value Reference Range Interpretation Comments TSH, THIRD GENERATION (test code 0.949 UIU/ML = 2821) HEMOGLOBIN [id number] 00:00:00 Test Item Value Reference Range Interpretation Comments HEMOGLOBIN A1c (test code = 45586) 7.7 % HEMOGLOBIN [id number] 00:00:00 Test Item Value Reference Range Interpretation Comments HEMOGLOBIN A1c (test code = 49022) 7.7 % LIPID [id number] 00:00:00 Test Item Value Reference Range Interpretation Comments CHOLESTEROL (test code = 2210) 167 MG/DL TRIGLYCERIDES (test code = 2232) 263 MG/DL HDL CHOLESTEROL (test code = 2220) 40 MG/DL CALC LDL CHOL (test code = 2237) 92 MG/DL RISK RATIO LDL/HDL (test code = 2.30 RATIO 2238) CBC W/AUTO [id number] 00:00:00 Test Item Value Reference Range Interpretation Comments WBC (test code = 1001) 10.5 K/UL RBC (test code = 1002) 5.77 M/UL HEMOGLOBIN (test code = 1003) 12.8 G/DL HEMATOCRIT (test code = 1004) 43.2 % MCV (test code = 1005) 74.9 fL MCH (test code = 1006) 22.2 PG MCHC (test code = 1007) 29.6 G/DL RDW (test code = 1038) 14.1 % NEUTROPHILS (test code = 1008) 68.4 % LYMPHOCYTES (test code = 1010) 18.2 % MONOCYTES (test code = 1011) 10.2 % EOSINOPHILS (test code = 1012) 2.3 % BASOPHILS (test code = 1013) 0.2 % IMMATURE GRANULOCYTES (test 0.7 % code = 1036) NUCLEATED RBCS (test code = 0.0 /100WBC'S 1065) PLATELET COUNT (test code = 273 K/UL 1015) ABSOLUTE NEUTROPHILS (test code 7.21 K/UL = 1066) ABSOLUTE LYMPHOCYTES (test code 1.92 K/UL = 1067) ABSOLUTE MONOCYTES (test code = 1.07 K/UL 1068) ABSOLUTE EOSINOPHILS (test code 0.24 K/UL = 1040) ABSOLUTE BASOPHILS (test code = 0.02 K/UL 1069) ABS IMMATURE GRANULOCYTES (test 0.07 K/UL code = 1020) ABS NUCLEATED RBCS (test code = 0.00 K/UL 10832) CBC W/AUTO [id number] 00:00:00 Test Item Value Reference Range Interpretation Comments WBC (test code = 1001) 10.5 K/UL RBC (test code = 1002) 5.77 M/UL HEMOGLOBIN (test code = 1003) 12.8 G/DL HEMATOCRIT (test code = 1004) 43.2 % MCV (test code = 1005) 74.9 fL MCH (test code = 1006) 22.2 PG MCHC (test code = 1007) 29.6 G/DL RDW (test code = 1038) 14.1 % NEUTROPHILS (test code = 1008) 68.4 % LYMPHOCYTES (test code = 1010) 18.2 % MONOCYTES (test code = 1011) 10.2 % EOSINOPHILS (test code = 1012) 2.3 % BASOPHILS (test code = 1013) 0.2 % IMMATURE GRANULOCYTES (test 0.7 % code = 1036) NUCLEATED RBCS (test code = 0.0 /100WBC'S 1065) PLATELET COUNT (test code = 273 K/UL 1015) ABSOLUTE NEUTROPHILS (test code 7.21 K/UL = 1066) ABSOLUTE LYMPHOCYTES (test code 1.92 K/UL = 1067) ABSOLUTE MONOCYTES (test code = 1.07 K/UL 1068) ABSOLUTE EOSINOPHILS (test code 0.24 K/UL = 1040) ABSOLUTE BASOPHILS (test code = 0.02 K/UL 1069) ABS IMMATURE GRANULOCYTES (test 0.07 K/UL code = 1020) ABS NUCLEATED RBCS (test code = 0.00 K/UL 51319) COMPREHENSIVE METABOLIC [id number] 00:00:00 Test Item Value Reference Range Interpretation Comments GLUCOSE (test code = 2217) 264 MG/DL BUN (test code = 2208) 12 MG/DL CREATININE (test code = 2214) 1.13 MG/DL eGFR AMER. (test code 86 ML/MIN/1.73 = 59390) eGFR NON- AMER. (test 74 ML/MIN/1.73 code = 44703) CALC BUN/CREAT (test code = 11 RATIO 2235) SODIUM (test code = 2231) 138 MEQ/L POTASSIUM (test code = 2228) 4.6 MEQ/L CHLORIDE (test code = 2215) 97 MEQ/L CARBON DIOXIDE (test code = 27 MEQ/L 2205) CALCIUM (test code = 2209) 9.3 MG/DL PROTEIN, TOTAL (test code = 8.0 G/DL 2228) ALBUMIN (test code = 2201) 4.2 G/DL CALC GLOBULIN (test code = 3.8 G/DL 2239) CALC A/G RATIO (test code = 1.1 RATIO 2233) BILIRUBIN, TOTAL (test code = 0.6 MG/DL 2206) ALKALINE PHOSPHATASE (test 133 U/L code = 2204) AST (test code = 2218) 21 U/L ALT (test code = 2219) 35 U/L [id number] 00:00:00 Test Item Value Reference Range Interpretation Comments TSH, THIRD GENERATION (test code 0.949 UIU/ML = 2821) [id number] 00:00:00 Test Item Value Reference Range Interpretation Comments TSH, THIRD GENERATION (test code 0.949 UIU/ML = 2821) HEMOGLOBIN [id number] 00:00:00 Test Item Value Reference Range Interpretation Comments HEMOGLOBIN A1c (test code = 51523) 7.7 % HEMOGLOBIN [id number] 00:00:00 Test Item Value Reference Range Interpretation Comments HEMOGLOBIN A1c (test code = 28157) 7.7 % HEMOGLOBIN [id number] 00:00:00 Test Item Value Reference Range Interpretation Comments HEMOGLOBIN A1c (test code = 95062) 7.7 % LIPID [id number] 00:00:00 Test Item Value Reference Range Interpretation Comments CHOLESTEROL (test code = 2210) 167 MG/DL TRIGLYCERIDES (test code = 2232) 263 MG/DL HDL CHOLESTEROL (test code = 2220) 40 MG/DL CALC LDL CHOL (test code = 2237) 92 MG/DL RISK RATIO LDL/HDL (test code = 2.30 RATIO 2238) LIPID [id number] 00:00:00 Test Item Value Reference Range Interpretation Comments CHOLESTEROL (test code = 2210) 167 MG/DL TRIGLYCERIDES (test code = 2232) 263 MG/DL HDL CHOLESTEROL (test code = 2220) 40 MG/DL CALC LDL CHOL (test code = 2237) 92 MG/DL RISK RATIO LDL/HDL (test code = 2.30 RATIO 2238) CBC W/AUTO [id number] 00:00:00 Test Item Value Reference Range Interpretation Comments WBC (test code = 1001) 10.5 K/UL RBC (test code = 1002) 5.77 M/UL HEMOGLOBIN (test code = 1003) 12.8 G/DL HEMATOCRIT (test code = 1004) 43.2 % MCV (test code = 1005) 74.9 fL MCH (test code = 1006) 22.2 PG MCHC (test code = 1007) 29.6 G/DL RDW (test code = 1038) 14.1 % NEUTROPHILS (test code = 1008) 68.4 % LYMPHOCYTES (test code = 1010) 18.2 % MONOCYTES (test code = 1011) 10.2 % EOSINOPHILS (test code = 1012) 2.3 % BASOPHILS (test code = 1013) 0.2 % IMMATURE GRANULOCYTES (test 0.7 % code = 1036) NUCLEATED RBCS (test code = 0.0 /100WBC'S 1065) PLATELET COUNT (test code = 273 K/UL 1015) ABSOLUTE NEUTROPHILS (test code 7.21 K/UL = 1066) ABSOLUTE LYMPHOCYTES (test code 1.92 K/UL = 1067) ABSOLUTE MONOCYTES (test code = 1.07 K/UL 1068) ABSOLUTE EOSINOPHILS (test code 0.24 K/UL = 1040) ABSOLUTE BASOPHILS (test code = 0.02 K/UL 1069) ABS IMMATURE GRANULOCYTES (test 0.07 K/UL code = 1020) ABS NUCLEATED RBCS (test code = 0.00 K/UL 38062) CBC W/AUTO [id number] 00:00:00 Test Item Value Reference Range Interpretation Comments WBC (test code = 1001) 10.5 K/UL RBC (test code = 1002) 5.77 M/UL HEMOGLOBIN (test code = 1003) 12.8 G/DL HEMATOCRIT (test code = 1004) 43.2 % MCV (test code = 1005) 74.9 fL MCH (test code = 1006) 22.2 PG MCHC (test code = 1007) 29.6 G/DL RDW (test code = 1038) 14.1 % NEUTROPHILS (test code = 1008) 68.4 % LYMPHOCYTES (test code = 1010) 18.2 % MONOCYTES (test code = 1011) 10.2 % EOSINOPHILS (test code = 1012) 2.3 % BASOPHILS (test code = 1013) 0.2 % IMMATURE GRANULOCYTES (test 0.7 % code = 1036) NUCLEATED RBCS (test code = 0.0 /100WBC'S 1065) PLATELET COUNT (test code = 273 K/UL 1015) ABSOLUTE NEUTROPHILS (test code 7.21 K/UL = 1066) ABSOLUTE LYMPHOCYTES (test code 1.92 K/UL = 1067) ABSOLUTE MONOCYTES (test code = 1.07 K/UL 1068) ABSOLUTE EOSINOPHILS (test code 0.24 K/UL = 1040) ABSOLUTE BASOPHILS (test code = 0.02 K/UL 1069) ABS IMMATURE GRANULOCYTES (test 0.07 K/UL code = 1020) ABS NUCLEATED RBCS (test code = 0.00 K/UL 15572) CBC W/AUTO [id number] 00:00:00 Test Item Value Reference Range Interpretation Comments WBC (test code = 1001) 10.5 K/UL RBC (test code = 1002) 5.77 M/UL HEMOGLOBIN (test code = 1003) 12.8 G/DL HEMATOCRIT (test code = 1004) 43.2 % MCV (test code = 1005) 74.9 fL MCH (test code = 1006) 22.2 PG MCHC (test code = 1007) 29.6 G/DL RDW (test code = 1038) 14.1 % NEUTROPHILS (test code = 1008) 68.4 % LYMPHOCYTES (test code = 1010) 18.2 % MONOCYTES (test code = 1011) 10.2 % EOSINOPHILS (test code = 1012) 2.3 % BASOPHILS (test code = 1013) 0.2 % IMMATURE GRANULOCYTES (test 0.7 % code = 1036) NUCLEATED RBCS (test code = 0.0 /100WBC'S 1065) PLATELET COUNT (test code = 273 K/UL 1015) ABSOLUTE NEUTROPHILS (test code 7.21 K/UL = 1066) ABSOLUTE LYMPHOCYTES (test code 1.92 K/UL = 1067) ABSOLUTE MONOCYTES (test code = 1.07 K/UL 1068) ABSOLUTE EOSINOPHILS (test code 0.24 K/UL = 1040) ABSOLUTE BASOPHILS (test code = 0.02 K/UL 1069) ABS IMMATURE GRANULOCYTES (test 0.07 K/UL code = 1020) ABS NUCLEATED RBCS (test code = 0.00 K/UL 74869) COMPREHENSIVE METABOLIC [id number] 00:00:00 Test Item Value Reference Range Interpretation Comments GLUCOSE (test code = 2217) 264 MG/DL BUN (test code = 2208) 12 MG/DL CREATININE (test code = 2214) 1.13 MG/DL eGFR AMER. (test code 86 ML/MIN/1.73 = 63515) eGFR NON- AMER. (test 74 ML/MIN/1.73 code = 89153) CALC BUN/CREAT (test code = 11 RATIO 2235) SODIUM (test code = 2231) 138 MEQ/L POTASSIUM (test code = 2228) 4.6 MEQ/L CHLORIDE (test code = 2215) 97 MEQ/L CARBON DIOXIDE (test code = 27 MEQ/L 2205) CALCIUM (test code = 2209) 9.3 MG/DL PROTEIN, TOTAL (test code = 8.0 G/DL 2228) ALBUMIN (test code = 2201) 4.2 G/DL CALC GLOBULIN (test code = 3.8 G/DL 2240) CALC A/G RATIO (test code = 1.1 RATIO 2234) BILIRUBIN, TOTAL (test code = 0.6 MG/DL 2206) ALKALINE PHOSPHATASE (test 133 U/L code = 2204) AST (test code = 2218) 21 U/L ALT (test code = 2219) 35 U/L COMPREHENSIVE METABOLIC [id number] 00:00:00 Test Item Value Reference Range Interpretation Comments GLUCOSE (test code = 2217) 264 MG/DL BUN (test code = 2208) 12 MG/DL CREATININE (test code = 2214) 1.13 MG/DL eGFR AMER. (test code 86 ML/MIN/1.73 = 68480) eGFR NON- AMER. (test 74 ML/MIN/1.73 code = 15642) CALC BUN/CREAT (test code = 11 RATIO 2235) SODIUM (test code = 2231) 138 MEQ/L POTASSIUM (test code = 2228) 4.6 MEQ/L CHLORIDE (test code = 2215) 97 MEQ/L CARBON DIOXIDE (test code = 27 MEQ/L 220) CALCIUM (test code = 2209) 9.3 MG/DL PROTEIN, TOTAL (test code = 8.0 G/DL 2228) ALBUMIN (test code = 2201) 4.2 G/DL CALC GLOBULIN (test code = 3.8 G/DL 2240) CALC A/G RATIO (test code = 1.1 RATIO 2234) BILIRUBIN, TOTAL (test code = 0.6 MG/DL 2206) ALKALINE PHOSPHATASE (test 133 U/L code = 2204) AST (test code = 2218) 21 U/L ALT (test code = 2219) 35 U/L [id number] 00:00:00 Test Item Value Reference Range Interpretation Comments TSH, THIRD GENERATION (test code 0.949 UIU/ML = 2821) [id number] 00:00:00 Test Item Value Reference Range Interpretation Comments TSH, THIRD GENERATION (test code 0.949 UIU/ML = 2821) [id number] 00:00:00 Test Item Value Reference Range Interpretation Comments TSH, THIRD GENERATION (test code 0.949 UIU/ML = 2821) HEMOGLOBIN [id number] 00:00:00 Test Item Value Reference Range Interpretation Comments HEMOGLOBIN A1c (test code = 96761) 7.7 % HEMOGLOBIN [id number] 00:00:00 Test Item Value Reference Range Interpretation Comments HEMOGLOBIN A1c (test code = 78644) 7.7 % HEMOGLOBIN [id number] 00:00:00 Test Item Value Reference Range Interpretation Comments HEMOGLOBIN A1c (test code = 43584) 7.7 % LIPID [id number] 00:00:00 Test Item Value Reference Range Interpretation Comments CHOLESTEROL (test code = 2210) 167 MG/DL TRIGLYCERIDES (test code = 2232) 263 MG/DL HDL CHOLESTEROL (test code = 2220) 40 MG/DL CALC LDL CHOL (test code = 2237) 92 MG/DL RISK RATIO LDL/HDL (test code = 2.30 RATIO 2238) LIPID [id number] 00:00:00 Test Item Value Reference Range Interpretation Comments CHOLESTEROL (test code = 2210) 167 MG/DL TRIGLYCERIDES (test code = 2232) 263 MG/DL HDL CHOLESTEROL (test code = 2220) 40 MG/DL CALC LDL CHOL (test code = 2237) 92 MG/DL RISK RATIO LDL/HDL (test code = 2.30 RATIO 2238) CBC W/AUTO [id number] 00:00:00 Test Item Value Reference Range Interpretation Comments WBC (test code = 1001) 10.5 K/UL RBC (test code = 1002) 5.77 M/UL HEMOGLOBIN (test code = 1003) 12.8 G/DL HEMATOCRIT (test code = 1004) 43.2 % MCV (test code = 1005) 74.9 fL MCH (test code = 1006) 22.2 PG MCHC (test code = 1007) 29.6 G/DL RDW (test code = 1038) 14.1 % NEUTROPHILS (test code = 1008) 68.4 % LYMPHOCYTES (test code = 1010) 18.2 % MONOCYTES (test code = 1011) 10.2 % EOSINOPHILS (test code = 1012) 2.3 % BASOPHILS (test code = 1013) 0.2 % IMMATURE GRANULOCYTES (test 0.7 % code = 1036) NUCLEATED RBCS (test code = 0.0 /100WBC'S 1065) PLATELET COUNT (test code = 273 K/UL 1015) ABSOLUTE NEUTROPHILS (test code 7.21 K/UL = 1066) ABSOLUTE LYMPHOCYTES (test code 1.92 K/UL = 1067) ABSOLUTE MONOCYTES (test code = 1.07 K/UL 1068) ABSOLUTE EOSINOPHILS (test code 0.24 K/UL = 1040) ABSOLUTE BASOPHILS (test code = 0.02 K/UL 1069) ABS IMMATURE GRANULOCYTES (test 0.07 K/UL code = 1020) ABS NUCLEATED RBCS (test code = 0.00 K/UL 22333) CBC W/AUTO [id number] 00:00:00 Test Item Value Reference Range Interpretation Comments WBC (test code = 1001) 10.5 K/UL RBC (test code = 1002) 5.77 M/UL HEMOGLOBIN (test code = 1003) 12.8 G/DL HEMATOCRIT (test code = 1004) 43.2 % MCV (test code = 1005) 74.9 fL MCH (test code = 1006) 22.2 PG MCHC (test code = 1007) 29.6 G/DL RDW (test code = 1038) 14.1 % NEUTROPHILS (test code = 1008) 68.4 % LYMPHOCYTES (test code = 1010) 18.2 % MONOCYTES (test code = 1011) 10.2 % EOSINOPHILS (test code = 1012) 2.3 % BASOPHILS (test code = 1013) 0.2 % IMMATURE GRANULOCYTES (test 0.7 % code = 1036) NUCLEATED RBCS (test code = 0.0 /100WBC'S 1065) PLATELET COUNT (test code = 273 K/UL 1015) ABSOLUTE NEUTROPHILS (test code 7.21 K/UL = 1066) ABSOLUTE LYMPHOCYTES (test code 1.92 K/UL = 1067) ABSOLUTE MONOCYTES (test code = 1.07 K/UL 1068) ABSOLUTE EOSINOPHILS (test code 0.24 K/UL = 1040) ABSOLUTE BASOPHILS (test code = 0.02 K/UL 1069) ABS IMMATURE GRANULOCYTES (test 0.07 K/UL code = 1020) ABS NUCLEATED RBCS (test code = 0.00 K/UL 79457) CBC W/AUTO [id number] 00:00:00 Test Item Value Reference Range Interpretation Comments WBC (test code = 1001) 10.5 K/UL RBC (test code = 1002) 5.77 M/UL HEMOGLOBIN (test code = 1003) 12.8 G/DL HEMATOCRIT (test code = 1004) 43.2 % MCV (test code = 1005) 74.9 fL MCH (test code = 1006) 22.2 PG MCHC (test code = 1007) 29.6 G/DL RDW (test code = 1038) 14.1 % NEUTROPHILS (test code = 1008) 68.4 % LYMPHOCYTES (test code = 1010) 18.2 % MONOCYTES (test code = 1011) 10.2 % EOSINOPHILS (test code = 1012) 2.3 % BASOPHILS (test code = 1013) 0.2 % IMMATURE GRANULOCYTES (test 0.7 % code = 1036) NUCLEATED RBCS (test code = 0.0 /100WBC'S 1065) PLATELET COUNT (test code = 273 K/UL 1015) ABSOLUTE NEUTROPHILS (test code 7.21 K/UL = 1066) ABSOLUTE LYMPHOCYTES (test code 1.92 K/UL = 1067) ABSOLUTE MONOCYTES (test code = 1.07 K/UL 1068) ABSOLUTE EOSINOPHILS (test code 0.24 K/UL = 1040) ABSOLUTE BASOPHILS (test code = 0.02 K/UL 1069) ABS IMMATURE GRANULOCYTES (test 0.07 K/UL code = 1020) ABS NUCLEATED RBCS (test code = 0.00 K/UL 78962) COMPREHENSIVE METABOLIC [id number] 00:00:00 Test Item Value Reference Range Interpretation Comments GLUCOSE (test code = 2217) 264 MG/DL BUN (test code = 2208) 12 MG/DL CREATININE (test code = 2214) 1.13 MG/DL eGFR AMER. (test code 86 ML/MIN/1.73 = 18753) eGFR NON- AMER. (test 74 ML/MIN/1.73 code = 60626) CALC BUN/CREAT (test code = 11 RATIO 2235) SODIUM (test code = 2231) 138 MEQ/L POTASSIUM (test code = 2228) 4.6 MEQ/L CHLORIDE (test code = 2215) 97 MEQ/L CARBON DIOXIDE (test code = 27 MEQ/L 220) CALCIUM (test code = 2209) 9.3 MG/DL PROTEIN, TOTAL (test code = 8.0 G/DL 2228) ALBUMIN (test code = 2201) 4.2 G/DL CALC GLOBULIN (test code = 3.8 G/DL 2239) CALC A/G RATIO (test code = 1.1 RATIO 2234) BILIRUBIN, TOTAL (test code = 0.6 MG/DL 2206) ALKALINE PHOSPHATASE (test 133 U/L code = 2204) AST (test code = 2218) 21 U/L ALT (test code = 2219) 35 U/L COMPREHENSIVE METABOLIC [id number] 00:00:00 Test Item Value Reference Range Interpretation Comments GLUCOSE (test code = 2217) 264 MG/DL BUN (test code = 2208) 12 MG/DL CREATININE (test code = 2214) 1.13 MG/DL eGFR AMER. (test code 86 ML/MIN/1.73 = 05204) eGFR NON- AMER. (test 74 ML/MIN/1.73 code = 89623) CALC BUN/CREAT (test code = 11 RATIO 2235) SODIUM (test code = 2231) 138 MEQ/L POTASSIUM (test code = 2228) 4.6 MEQ/L CHLORIDE (test code = 2215) 97 MEQ/L CARBON DIOXIDE (test code = 27 MEQ/L 220) CALCIUM (test code = 2209) 9.3 MG/DL PROTEIN, TOTAL (test code = 8.0 G/DL 2228) ALBUMIN (test code = 2201) 4.2 G/DL CALC GLOBULIN (test code = 3.8 G/DL 2240) CALC A/G RATIO (test code = 1.1 RATIO 2234) BILIRUBIN, TOTAL (test code = 0.6 MG/DL 2206) ALKALINE PHOSPHATASE (test 133 U/L code = 2204) AST (test code = 2218) 21 U/L ALT (test code = 2219) 35 U/L [id number] 00:00:00 Test Item Value Reference Range Interpretation Comments TSH, THIRD GENERATION (test code 0.949 UIU/ML = 2821) [id number] 00:00:00 Test Item Value Reference Range Interpretation Comments TSH, THIRD GENERATION (test code 0.949 UIU/ML = 2821) [id number] 00:00:00 Test Item Value Reference Range Interpretation Comments TSH, THIRD GENERATION (test code 0.949 UIU/ML = 2821) HEMOGLOBIN [id number] 00:00:00 Test Item Value Reference Range Interpretation Comments HEMOGLOBIN A1c (test code = 20474) 7.7 % HEMOGLOBIN [id number] 00:00:00 Test Item Value Reference Range Interpretation Comments HEMOGLOBIN A1c (test code = 27009) 7.7 % LIPID [id number] 00:00:00 Test Item Value Reference Range Interpretation Comments CHOLESTEROL (test code = 2210) 167 MG/DL TRIGLYCERIDES (test code = 2232) 263 MG/DL HDL CHOLESTEROL (test code = 2220) 40 MG/DL CALC LDL CHOL (test code = 2237) 92 MG/DL RISK RATIO LDL/HDL (test code = 2.30 RATIO 2238) HEMOGLOBIN [id number] 00:00:00 Test Item Value Reference Range Interpretation Comments HEMOGLOBIN A1c (test code = 58801) 7.7 % HEMOGLOBIN [id number] 00:00:00 Test Item Value Reference Range Interpretation Comments HEMOGLOBIN A1c (test code = 50175) 7.7 % HEMOGLOBIN [id number] 00:00:00 Test Item Value Reference Range Interpretation Comments HEMOGLOBIN A1c (test code = 66506) 7.7 % CBC W/AUTO [id number] 00:00:00 Test Item Value Reference Range Interpretation Comments WBC (test code = 1001) 10.5 K/UL RBC (test code = 1002) 5.77 M/UL HEMOGLOBIN (test code = 1003) 12.8 G/DL HEMATOCRIT (test code = 1004) 43.2 % MCV (test code = 1005) 74.9 fL MCH (test code = 1006) 22.2 PG MCHC (test code = 1007) 29.6 G/DL RDW (test code = 1038) 14.1 % NEUTROPHILS (test code = 1008) 68.4 % LYMPHOCYTES (test code = 1010) 18.2 % MONOCYTES (test code = 1011) 10.2 % EOSINOPHILS (test code = 1012) 2.3 % BASOPHILS (test code = 1013) 0.2 % IMMATURE GRANULOCYTES (test 0.7 % code = 1036) NUCLEATED RBCS (test code = 0.0 /100WBC'S 1065) PLATELET COUNT (test code = 273 K/UL 1015) ABSOLUTE NEUTROPHILS (test code 7.21 K/UL = 1066) ABSOLUTE LYMPHOCYTES (test code 1.92 K/UL = 1067) ABSOLUTE MONOCYTES (test code = 1.07 K/UL 1068) ABSOLUTE EOSINOPHILS (test code 0.24 K/UL = 1040) ABSOLUTE BASOPHILS (test code = 0.02 K/UL 1069) ABS IMMATURE GRANULOCYTES (test 0.07 K/UL code = 1020) ABS NUCLEATED RBCS (test code = 0.00 K/UL 82437) LIPID [id number] 00:00:00 Test Item Value Reference Range Interpretation Comments CHOLESTEROL (test code = 2210) 167 MG/DL TRIGLYCERIDES (test code = 2232) 263 MG/DL HDL CHOLESTEROL (test code = 2220) 40 MG/DL CALC LDL CHOL (test code = 2237) 92 MG/DL RISK RATIO LDL/HDL (test code = 2.30 RATIO 2238) LIPID [id number] 00:00:00 Test Item Value Reference Range Interpretation Comments CHOLESTEROL (test code = 2210) 167 MG/DL TRIGLYCERIDES (test code = 2232) 263 MG/DL HDL CHOLESTEROL (test code = 2220) 40 MG/DL CALC LDL CHOL (test code = 2237) 92 MG/DL RISK RATIO LDL/HDL (test code = 2.30 RATIO 2238) CBC W/AUTO [id number] 00:00:00 Test Item Value Reference Range Interpretation Comments WBC (test code = 1001) 10.5 K/UL RBC (test code = 1002) 5.77 M/UL HEMOGLOBIN (test code = 1003) 12.8 G/DL HEMATOCRIT (test code = 1004) 43.2 % MCV (test code = 1005) 74.9 fL MCH (test code = 1006) 22.2 PG MCHC (test code = 1007) 29.6 G/DL RDW (test code = 1038) 14.1 % NEUTROPHILS (test code = 1008) 68.4 % LYMPHOCYTES (test code = 1010) 18.2 % MONOCYTES (test code = 1011) 10.2 % EOSINOPHILS (test code = 1012) 2.3 % BASOPHILS (test code = 1013) 0.2 % IMMATURE GRANULOCYTES (test 0.7 % code = 1036) NUCLEATED RBCS (test code = 0.0 /100WBC'S 1065) PLATELET COUNT (test code = 273 K/UL 1015) ABSOLUTE NEUTROPHILS (test code 7.21 K/UL = 1066) ABSOLUTE LYMPHOCYTES (test code 1.92 K/UL = 1067) ABSOLUTE MONOCYTES (test code = 1.07 K/UL 1068) ABSOLUTE EOSINOPHILS (test code 0.24 K/UL = 1040) ABSOLUTE BASOPHILS (test code = 0.02 K/UL 1069) ABS IMMATURE GRANULOCYTES (test 0.07 K/UL code = 1020) ABS NUCLEATED RBCS (test code = 0.00 K/UL 24959) CBC W/AUTO [id number] 00:00:00 Test Item Value Reference Range Interpretation Comments WBC (test code = 1001) 10.5 K/UL RBC (test code = 1002) 5.77 M/UL HEMOGLOBIN (test code = 1003) 12.8 G/DL HEMATOCRIT (test code = 1004) 43.2 % MCV (test code = 1005) 74.9 fL MCH (test code = 1006) 22.2 PG MCHC (test code = 1007) 29.6 G/DL RDW (test code = 1038) 14.1 % NEUTROPHILS (test code = 1008) 68.4 % LYMPHOCYTES (test code = 1010) 18.2 % MONOCYTES (test code = 1011) 10.2 % EOSINOPHILS (test code = 1012) 2.3 % BASOPHILS (test code = 1013) 0.2 % IMMATURE GRANULOCYTES (test 0.7 % code = 1036) NUCLEATED RBCS (test code = 0.0 /100WBC'S 1065) PLATELET COUNT (test code = 273 K/UL 1015) ABSOLUTE NEUTROPHILS (test code 7.21 K/UL = 1066) ABSOLUTE LYMPHOCYTES (test code 1.92 K/UL = 1067) ABSOLUTE MONOCYTES (test code = 1.07 K/UL 1068) ABSOLUTE EOSINOPHILS (test code 0.24 K/UL = 1040) ABSOLUTE BASOPHILS (test code = 0.02 K/UL 1069) ABS IMMATURE GRANULOCYTES (test 0.07 K/UL code = 1020) ABS NUCLEATED RBCS (test code = 0.00 K/UL 21902) CBC W/AUTO [id number] 00:00:00 Test Item Value Reference Range Interpretation Comments WBC (test code = 1001) 10.5 K/UL RBC (test code = 1002) 5.77 M/UL HEMOGLOBIN (test code = 1003) 12.8 G/DL HEMATOCRIT (test code = 1004) 43.2 % MCV (test code = 1005) 74.9 fL MCH (test code = 1006) 22.2 PG MCHC (test code = 1007) 29.6 G/DL RDW (test code = 1038) 14.1 % NEUTROPHILS (test code = 1008) 68.4 % LYMPHOCYTES (test code = 1010) 18.2 % MONOCYTES (test code = 1011) 10.2 % EOSINOPHILS (test code = 1012) 2.3 % BASOPHILS (test code = 1013) 0.2 % IMMATURE GRANULOCYTES (test 0.7 % code = 1036) NUCLEATED RBCS (test code = 0.0 /100WBC'S 1065) PLATELET COUNT (test code = 273 K/UL 1015) ABSOLUTE NEUTROPHILS (test code 7.21 K/UL = 1066) ABSOLUTE LYMPHOCYTES (test code 1.92 K/UL = 1067) ABSOLUTE MONOCYTES (test code = 1.07 K/UL 1068) ABSOLUTE EOSINOPHILS (test code 0.24 K/UL = 1040) ABSOLUTE BASOPHILS (test code = 0.02 K/UL 1069) ABS IMMATURE GRANULOCYTES (test 0.07 K/UL code = 1020) ABS NUCLEATED RBCS (test code = 0.00 K/UL 39148) CBC W/AUTO [id number] 00:00:00 Test Item Value Reference Range Interpretation Comments WBC (test code = 1001) 10.5 K/UL RBC (test code = 1002) 5.77 M/UL HEMOGLOBIN (test code = 1003) 12.8 G/DL HEMATOCRIT (test code = 1004) 43.2 % MCV (test code = 1005) 74.9 fL MCH (test code = 1006) 22.2 PG MCHC (test code = 1007) 29.6 G/DL RDW (test code = 1038) 14.1 % NEUTROPHILS (test code = 1008) 68.4 % LYMPHOCYTES (test code = 1010) 18.2 % MONOCYTES (test code = 1011) 10.2 % EOSINOPHILS (test code = 1012) 2.3 % BASOPHILS (test code = 1013) 0.2 % IMMATURE GRANULOCYTES (test 0.7 % code = 1036) NUCLEATED RBCS (test code = 0.0 /100WBC'S 1065) PLATELET COUNT (test code = 273 K/UL 1015) ABSOLUTE NEUTROPHILS (test code 7.21 K/UL = 1066) ABSOLUTE LYMPHOCYTES (test code 1.92 K/UL = 1067) ABSOLUTE MONOCYTES (test code = 1.07 K/UL 1068) ABSOLUTE EOSINOPHILS (test code 0.24 K/UL = 1040) ABSOLUTE BASOPHILS (test code = 0.02 K/UL 1069) ABS IMMATURE GRANULOCYTES (test 0.07 K/UL code = 1020) ABS NUCLEATED RBCS (test code = 0.00 K/UL 85101) COMPREHENSIVE METABOLIC [id number] 00:00:00 Test Item Value Reference Range Interpretation Comments GLUCOSE (test code = 2217) 264 MG/DL BUN (test code = 2208) 12 MG/DL CREATININE (test code = 2214) 1.13 MG/DL eGFR AMER. (test code 86 ML/MIN/1.73 = 87224) eGFR NON- AMER. (test 74 ML/MIN/1.73 code = 95630) CALC BUN/CREAT (test code = 11 RATIO 2235) SODIUM (test code = 2231) 138 MEQ/L POTASSIUM (test code = 2228) 4.6 MEQ/L CHLORIDE (test code = 2215) 97 MEQ/L CARBON DIOXIDE (test code = 27 MEQ/L 2206) CALCIUM (test code = 2209) 9.3 MG/DL PROTEIN, TOTAL (test code = 8.0 G/DL 2228) ALBUMIN (test code = 2201) 4.2 G/DL CALC GLOBULIN (test code = 3.8 G/DL 2240) CALC A/G RATIO (test code = 1.1 RATIO 2234) BILIRUBIN, TOTAL (test code = 0.6 MG/DL 2206) ALKALINE PHOSPHATASE (test 133 U/L code = 2204) AST (test code = 2218) 21 U/L ALT (test code = 2219) 35 U/L COMPREHENSIVE METABOLIC [id number] 00:00:00 Test Item Value Reference Range Interpretation Comments GLUCOSE (test code = 2217) 264 MG/DL BUN (test code = 2208) 12 MG/DL CREATININE (test code = 2214) 1.13 MG/DL eGFR AMER. (test code 86 ML/MIN/1.73 = 10330) eGFR NON- AMER. (test 74 ML/MIN/1.73 code = 18376) CALC BUN/CREAT (test code = 11 RATIO 2235) SODIUM (test code = 2231) 138 MEQ/L POTASSIUM (test code = 2228) 4.6 MEQ/L CHLORIDE (test code = 2215) 97 MEQ/L CARBON DIOXIDE (test code = 27 MEQ/L 2205) CALCIUM (test code = 2209) 9.3 MG/DL PROTEIN, TOTAL (test code = 8.0 G/DL 2228) ALBUMIN (test code = 2201) 4.2 G/DL CALC GLOBULIN (test code = 3.8 G/DL 2240) CALC A/G RATIO (test code = 1.1 RATIO 2234) BILIRUBIN, TOTAL (test code = 0.6 MG/DL 2206) ALKALINE PHOSPHATASE (test 133 U/L code = 2204) AST (test code = 2218) 21 U/L ALT (test code = 2219) 35 U/L [id number] 00:00:00 Test Item Value Reference Range Interpretation Comments TSH, THIRD GENERATION (test code 0.949 UIU/ML = 2821) [id number] 00:00:00 Test Item Value Reference Range Interpretation Comments TSH, THIRD GENERATION (test code 0.949 UIU/ML = 2821) [id number] 00:00:00 Test Item Value Reference Range Interpretation Comments TSH, THIRD GENERATION (test code 0.949 UIU/ML = 2821) COMPREHENSIVE METABOLIC [id number] 00:00:00 Test Item Value Reference Range Interpretation Comments GLUCOSE (test code = 2217) 264 MG/DL BUN (test code = 2208) 12 MG/DL CREATININE (test code = 2214) 1.13 MG/DL eGFR AMER. (test code 86 ML/MIN/1.73 = 88852) eGFR NON- AMER. (test 74 ML/MIN/1.73 code = 97199) CALC BUN/CREAT (test code = 11 RATIO 2235) SODIUM (test code = 2231) 138 MEQ/L POTASSIUM (test code = 2228) 4.6 MEQ/L CHLORIDE (test code = 2215) 97 MEQ/L CARBON DIOXIDE (test code = 27 MEQ/L 2205) CALCIUM (test code = 2209) 9.3 MG/DL PROTEIN, TOTAL (test code = 8.0 G/DL 2228) ALBUMIN (test code = 2201) 4.2 G/DL CALC GLOBULIN (test code = 3.8 G/DL 2239) CALC A/G RATIO (test code = 1.1 RATIO 2234) BILIRUBIN, TOTAL (test code = 0.6 MG/DL 2206) ALKALINE PHOSPHATASE (test 133 U/L code = 2204) AST (test code = 2218) 21 U/L ALT (test code = 2219) 35 U/L LIPID [id number] 00:00:00 Test Item Value Reference Range Interpretation Comments CHOLESTEROL (test code = 2210) 224 MG/DL TRIGLYCERIDES (test code = 2232) 361 MG/DL HDL CHOLESTEROL (test code = 2220) 45 MG/DL CALC LDL CHOL (test code = 2237) 127 MG/DL RISK RATIO LDL/HDL (test code = 2.82 RATIO 2238) LIPID [id number] 00:00:00 Test Item Value Reference Range Interpretation Comments CHOLESTEROL (test code = 2210) 224 MG/DL TRIGLYCERIDES (test code = 2232) 361 MG/DL HDL CHOLESTEROL (test code = 2220) 45 MG/DL CALC LDL CHOL (test code = 2237) 127 MG/DL RISK RATIO LDL/HDL (test code = 2.82 RATIO 2238) HEMOGLOBIN [id number] 00:00:00 Test Item Value Reference Range Interpretation Comments HEMOGLOBIN A1c (test code = 37245) 5.9 % HEMOGLOBIN [id number] 00:00:00 Test Item Value Reference Range Interpretation Comments HEMOGLOBIN A1c (test code = 08453) 5.9 % HEMOGLOBIN [id number] 00:00:00 Test Item Value Reference Range Interpretation Comments HEMOGLOBIN A1c (test code = 04938) 5.9 % COMPREHENSIVE METABOLIC [id number] 00:00:00 Test Item Value Reference Range Interpretation Comments GLUCOSE (test code = 2217) 150 MG/DL BUN (test code = 2208) 14 MG/DL CREATININE (test code = 2214) 1.22 MG/DL eGFR AMER. (test code 79 ML/MIN/1.73 = 53741) eGFR NON- AMER. (test 68 ML/MIN/1.73 code = 11880) CALC BUN/CREAT (test code = 11 RATIO 2235) SODIUM (test code = 2231) 141 MEQ/L POTASSIUM (test code = 2228) 4.5 MEQ/L CHLORIDE (test code = 2215) 99 MEQ/L CARBON DIOXIDE (test code = 33 MEQ/L 2205) CALCIUM (test code = 2209) 10.1 MG/DL PROTEIN, TOTAL (test code = 8.0 G/DL 2228) ALBUMIN (test code = 2201) 4.3 G/DL CALC GLOBULIN (test code = 3.7 G/DL 0) CALC A/G RATIO (test code = 1.2 RATIO 2234) BILIRUBIN, TOTAL (test code = 0.5 MG/DL 2206) ALKALINE PHOSPHATASE (test 120 U/L code = 2204) AST (test code = 2218) 22 U/L ALT (test code = 2219) 49 U/L COMPREHENSIVE METABOLIC [id number] 00:00:00 Test Item Value Reference Range Interpretation Comments GLUCOSE (test code = 2217) 150 MG/DL BUN (test code = 2208) 14 MG/DL CREATININE (test code = 2214) 1.22 MG/DL eGFR AMER. (test code 79 ML/MIN/1.73 = 07355) eGFR NON- AMER. (test 68 ML/MIN/1.73 code = 80166) CALC BUN/CREAT (test code = 11 RATIO 2235) SODIUM (test code = 2231) 141 MEQ/L POTASSIUM (test code = 2228) 4.5 MEQ/L CHLORIDE (test code = 2215) 99 MEQ/L CARBON DIOXIDE (test code = 33 MEQ/L 2205) CALCIUM (test code = 2209) 10.1 MG/DL PROTEIN, TOTAL (test code = 8.0 G/DL 2228) ALBUMIN (test code = 2201) 4.3 G/DL CALC GLOBULIN (test code = 3.7 G/DL 2239) CALC A/G RATIO (test code = 1.2 RATIO 2233) BILIRUBIN, TOTAL (test code = 0.5 MG/DL 2206) ALKALINE PHOSPHATASE (test 120 U/L code = 2204) AST (test code = 2218) 22 U/L ALT (test code = 2219) 49 U/L LIPID [id number] 00:00:00 Test Item Value Reference Range Interpretation Comments CHOLESTEROL (test code = 2210) 224 MG/DL TRIGLYCERIDES (test code = 2232) 361 MG/DL HDL CHOLESTEROL (test code = 2220) 45 MG/DL CALC LDL CHOL (test code = 2237) 127 MG/DL RISK RATIO LDL/HDL (test code = 2.82 RATIO 2238) LIPID [id number] 00:00:00 Test Item Value Reference Range Interpretation Comments CHOLESTEROL (test code = 2210) 224 MG/DL TRIGLYCERIDES (test code = 2232) 361 MG/DL HDL CHOLESTEROL (test code = 2220) 45 MG/DL CALC LDL CHOL (test code = 2237) 127 MG/DL RISK RATIO LDL/HDL (test code = 2.82 RATIO 2238) HEMOGLOBIN [id number] 00:00:00 Test Item Value Reference Range Interpretation Comments HEMOGLOBIN A1c (test code = 79554) 5.9 % HEMOGLOBIN [id number] 00:00:00 Test Item Value Reference Range Interpretation Comments HEMOGLOBIN A1c (test code = 40155) 5.9 % HEMOGLOBIN [id number] 00:00:00 Test Item Value Reference Range Interpretation Comments HEMOGLOBIN A1c (test code = 75683) 5.9 % COMPREHENSIVE METABOLIC [id number] 00:00:00 Test Item Value Reference Range Interpretation Comments GLUCOSE (test code = 2217) 150 MG/DL BUN (test code = 2208) 14 MG/DL CREATININE (test code = 2214) 1.22 MG/DL eGFR AMER. (test code 79 ML/MIN/1.73 = 34457) eGFR NON- AMER. (test 68 ML/MIN/1.73 code = 55990) CALC BUN/CREAT (test code = 11 RATIO 2235) SODIUM (test code = 2231) 141 MEQ/L POTASSIUM (test code = 2228) 4.5 MEQ/L CHLORIDE (test code = 2215) 99 MEQ/L CARBON DIOXIDE (test code = 33 MEQ/L 220) CALCIUM (test code = 2209) 10.1 MG/DL PROTEIN, TOTAL (test code = 8.0 G/DL 2228) ALBUMIN (test code = 2201) 4.3 G/DL CALC GLOBULIN (test code = 3.7 G/DL 2240) CALC A/G RATIO (test code = 1.2 RATIO 2234) BILIRUBIN, TOTAL (test code = 0.5 MG/DL 2206) ALKALINE PHOSPHATASE (test 120 U/L code = 2204) AST (test code = 2218) 22 U/L ALT (test code = 2219) 49 U/L COMPREHENSIVE METABOLIC [id number] 00:00:00 Test Item Value Reference Range Interpretation Comments GLUCOSE (test code = 2217) 150 MG/DL BUN (test code = 2208) 14 MG/DL CREATININE (test code = 2214) 1.22 MG/DL eGFR AMER. (test code 79 ML/MIN/1.73 = 94770) eGFR NON- AMER. (test 68 ML/MIN/1.73 code = 69527) CALC BUN/CREAT (test code = 11 RATIO 2235) SODIUM (test code = 2231) 141 MEQ/L POTASSIUM (test code = 2228) 4.5 MEQ/L CHLORIDE (test code = 2215) 99 MEQ/L CARBON DIOXIDE (test code = 33 MEQ/L 220) CALCIUM (test code = 2209) 10.1 MG/DL PROTEIN, TOTAL (test code = 8.0 G/DL 2228) ALBUMIN (test code = 2201) 4.3 G/DL CALC GLOBULIN (test code = 3.7 G/DL 2240) CALC A/G RATIO (test code = 1.2 RATIO 2234) BILIRUBIN, TOTAL (test code = 0.5 MG/DL 2206) ALKALINE PHOSPHATASE (test 120 U/L code = 2204) AST (test code = 2218) 22 U/L ALT (test code = 2219) 49 U/L LIPID [id number] 00:00:00 Test Item Value Reference Range Interpretation Comments CHOLESTEROL (test code = 2210) 224 MG/DL TRIGLYCERIDES (test code = 2232) 361 MG/DL HDL CHOLESTEROL (test code = 2220) 45 MG/DL CALC LDL CHOL (test code = 2237) 127 MG/DL RISK RATIO LDL/HDL (test code = 2.82 RATIO 2238) HEMOGLOBIN [id number] 00:00:00 Test Item Value Reference Range Interpretation Comments HEMOGLOBIN A1c (test code = 96403) 5.9 % HEMOGLOBIN [id number] 00:00:00 Test Item Value Reference Range Interpretation Comments HEMOGLOBIN A1c (test code = 07920) 5.9 % COMPREHENSIVE METABOLIC [id number] 00:00:00 Test Item Value Reference Range Interpretation Comments GLUCOSE (test code = 2217) 150 MG/DL BUN (test code = 2208) 14 MG/DL CREATININE (test code = 2214) 1.22 MG/DL eGFR AMER. (test code 79 ML/MIN/1.73 = 51444) eGFR NON- AMER. (test 68 ML/MIN/1.73 code = 28577) CALC BUN/CREAT (test code = 11 RATIO 2235) SODIUM (test code = 2231) 141 MEQ/L POTASSIUM (test code = 2228) 4.5 MEQ/L CHLORIDE (test code = 2215) 99 MEQ/L CARBON DIOXIDE (test code = 33 MEQ/L 2205) CALCIUM (test code = 2209) 10.1 MG/DL PROTEIN, TOTAL (test code = 8.0 G/DL 2228) ALBUMIN (test code = 2201) 4.3 G/DL CALC GLOBULIN (test code = 3.7 G/DL 2239) CALC A/G RATIO (test code = 1.2 RATIO 2233) BILIRUBIN, TOTAL (test code = 0.5 MG/DL 2206) ALKALINE PHOSPHATASE (test 120 U/L code = 2204) AST (test code = 2218) 22 U/L ALT (test code = 2219) 49 U/L LIPID [id number] 00:00:00 Test Item Value Reference Range Interpretation Comments CHOLESTEROL (test code = 2210) 224 MG/DL TRIGLYCERIDES (test code = 2232) 361 MG/DL HDL CHOLESTEROL (test code = 2220) 45 MG/DL CALC LDL CHOL (test code = 2237) 127 MG/DL RISK RATIO LDL/HDL (test code = 2.82 RATIO 2238) HEMOGLOBIN [id number] 00:00:00 Test Item Value Reference Range Interpretation Comments HEMOGLOBIN A1c (test code = 83554) 5.9 % HEMOGLOBIN [id number] 00:00:00 Test Item Value Reference Range Interpretation Comments HEMOGLOBIN A1c (test code = 41894) 5.9 % COMPREHENSIVE METABOLIC [id number] 00:00:00 Test Item Value Reference Range Interpretation Comments GLUCOSE (test code = 2217) 150 MG/DL BUN (test code = 2208) 14 MG/DL CREATININE (test code = 2214) 1.22 MG/DL eGFR AMER. (test code 79 ML/MIN/1.73 = 09777) eGFR NON- AMER. (test 68 ML/MIN/1.73 code = 77921) CALC BUN/CREAT (test code = 11 RATIO 2234) SODIUM (test code = 2231) 141 MEQ/L POTASSIUM (test code = 2228) 4.5 MEQ/L CHLORIDE (test code = 2215) 99 MEQ/L CARBON DIOXIDE (test code = 33 MEQ/L 2205) CALCIUM (test code = 2209) 10.1 MG/DL PROTEIN, TOTAL (test code = 8.0 G/DL 2228) ALBUMIN (test code = 2201) 4.3 G/DL CALC GLOBULIN (test code = 3.7 G/DL 2239) CALC A/G RATIO (test code = 1.2 RATIO 2233) BILIRUBIN, TOTAL (test code = 0.5 MG/DL 2206) ALKALINE PHOSPHATASE (test 120 U/L code = 2204) AST (test code = 2218) 22 U/L ALT (test code = 2219) 49 U/L LIPID [id number] 00:00:00 Test Item Value Reference Range Interpretation Comments CHOLESTEROL (test code = 2210) 224 MG/DL TRIGLYCERIDES (test code = 2232) 361 MG/DL HDL CHOLESTEROL (test code = 2220) 45 MG/DL CALC LDL CHOL (test code = 2237) 127 MG/DL RISK RATIO LDL/HDL (test code = 2.82 RATIO 2238) LIPID [id number] 00:00:00 Test Item Value Reference Range Interpretation Comments CHOLESTEROL (test code = 2210) 224 MG/DL TRIGLYCERIDES (test code = 2232) 361 MG/DL HDL CHOLESTEROL (test code = 2220) 45 MG/DL CALC LDL CHOL (test code = 2237) 127 MG/DL RISK RATIO LDL/HDL (test code = 2.82 RATIO 2238) HEMOGLOBIN [id number] 00:00:00 Test Item Value Reference Range Interpretation Comments HEMOGLOBIN A1c (test code = 45290) 5.9 % HEMOGLOBIN [id number] 00:00:00 Test Item Value Reference Range Interpretation Comments HEMOGLOBIN A1c (test code = 73099) 5.9 % HEMOGLOBIN [id number] 00:00:00 Test Item Value Reference Range Interpretation Comments HEMOGLOBIN A1c (test code = 93878) 5.9 % COMPREHENSIVE METABOLIC [id number] 00:00:00 Test Item Value Reference Range Interpretation Comments GLUCOSE (test code = 2217) 150 MG/DL BUN (test code = 2208) 14 MG/DL CREATININE (test code = 2214) 1.22 MG/DL eGFR AMER. (test code 79 ML/MIN/1.73 = 51043) eGFR NON- AMER. (test 68 ML/MIN/1.73 code = 94924) CALC BUN/CREAT (test code = 11 RATIO 2235) SODIUM (test code = 2231) 141 MEQ/L POTASSIUM (test code = 2228) 4.5 MEQ/L CHLORIDE (test code = 2215) 99 MEQ/L CARBON DIOXIDE (test code = 33 MEQ/L 2205) CALCIUM (test code = 2209) 10.1 MG/DL PROTEIN, TOTAL (test code = 8.0 G/DL 2228) ALBUMIN (test code = 2201) 4.3 G/DL CALC GLOBULIN (test code = 3.7 G/DL 2240) CALC A/G RATIO (test code = 1.2 RATIO 2234) BILIRUBIN, TOTAL (test code = 0.5 MG/DL 2206) ALKALINE PHOSPHATASE (test 120 U/L code = 2204) AST (test code = 2218) 22 U/L ALT (test code = 2219) 49 U/L COMPREHENSIVE METABOLIC [id number] 00:00:00 Test Item Value Reference Range Interpretation Comments GLUCOSE (test code = 2217) 150 MG/DL BUN (test code = 2208) 14 MG/DL CREATININE (test code = 2214) 1.22 MG/DL eGFR AMER. (test code 79 ML/MIN/1.73 = 03371) eGFR NON- AMER. (test 68 ML/MIN/1.73 code = 01189) CALC BUN/CREAT (test code = 11 RATIO 2235) SODIUM (test code = 2231) 141 MEQ/L POTASSIUM (test code = 2228) 4.5 MEQ/L CHLORIDE (test code = 2215) 99 MEQ/L CARBON DIOXIDE (test code = 33 MEQ/L 2205) CALCIUM (test code = 2209) 10.1 MG/DL PROTEIN, TOTAL (test code = 8.0 G/DL 2228) ALBUMIN (test code = 2201) 4.3 G/DL CALC GLOBULIN (test code = 3.7 G/DL 2239) CALC A/G RATIO (test code = 1.2 RATIO 2233) BILIRUBIN, TOTAL (test code = 0.5 MG/DL 2206) ALKALINE PHOSPHATASE (test 120 U/L code = 2204) AST (test code = 2218) 22 U/L ALT (test code = 2219) 49 U/L LIPID [id number] 00:00:00 Test Item Value Reference Range Interpretation Comments CHOLESTEROL (test code = 2210) 224 MG/DL TRIGLYCERIDES (test code = 2232) 361 MG/DL HDL CHOLESTEROL (test code = 2220) 45 MG/DL CALC LDL CHOL (test code = 2237) 127 MG/DL RISK RATIO LDL/HDL (test code = 2.82 RATIO 2238) LIPID [id number] 00:00:00 Test Item Value Reference Range Interpretation Comments CHOLESTEROL (test code = 2210) 224 MG/DL TRIGLYCERIDES (test code = 2232) 361 MG/DL HDL CHOLESTEROL (test code = 2220) 45 MG/DL CALC LDL CHOL (test code = 2237) 127 MG/DL RISK RATIO LDL/HDL (test code = 2.82 RATIO 2238) HEMOGLOBIN [id number] 00:00:00 Test Item Value Reference Range Interpretation Comments HEMOGLOBIN A1c (test code = 64110) 5.9 % HEMOGLOBIN [id number] 00:00:00 Test Item Value Reference Range Interpretation Comments HEMOGLOBIN A1c (test code = 70269) 5.9 % HEMOGLOBIN [id number] 00:00:00 Test Item Value Reference Range Interpretation Comments HEMOGLOBIN A1c (test code = 40218) 5.9 % COMPREHENSIVE METABOLIC [id number] 00:00:00 Test Item Value Reference Range Interpretation Comments GLUCOSE (test code = 2217) 150 MG/DL BUN (test code = 2208) 14 MG/DL CREATININE (test code = 2214) 1.22 MG/DL eGFR AMER. (test code 79 ML/MIN/1.73 = 81563) eGFR NON- AMER. (test 68 ML/MIN/1.73 code = 63278) CALC BUN/CREAT (test code = 11 RATIO 2235) SODIUM (test code = 2231) 141 MEQ/L POTASSIUM (test code = 2228) 4.5 MEQ/L CHLORIDE (test code = 2215) 99 MEQ/L CARBON DIOXIDE (test code = 33 MEQ/L 2205) CALCIUM (test code = 2209) 10.1 MG/DL PROTEIN, TOTAL (test code = 8.0 G/DL 2228) ALBUMIN (test code = 2201) 4.3 G/DL CALC GLOBULIN (test code = 3.7 G/DL 0) CALC A/G RATIO (test code = 1.2 RATIO 4) BILIRUBIN, TOTAL (test code = 0.5 MG/DL 2206) ALKALINE PHOSPHATASE (test 120 U/L code = 2204) AST (test code = 2218) 22 U/L ALT (test code = 2219) 49 U/L COMPREHENSIVE METABOLIC [id number] 00:00:00 Test Item Value Reference Range Interpretation Comments GLUCOSE (test code = 2217) 150 MG/DL BUN (test code = 2208) 14 MG/DL CREATININE (test code = 2214) 1.22 MG/DL eGFR AMER. (test code 79 ML/MIN/1.73 = 19058) eGFR NON- AMER. (test 68 ML/MIN/1.73 code = 28932) CALC BUN/CREAT (test code = 11 RATIO 2235) SODIUM (test code = 2231) 141 MEQ/L POTASSIUM (test code = 2228) 4.5 MEQ/L CHLORIDE (test code = 2215) 99 MEQ/L CARBON DIOXIDE (test code = 33 MEQ/L 2205) CALCIUM (test code = 2209) 10.1 MG/DL PROTEIN, TOTAL (test code = 8.0 G/DL 2228) ALBUMIN (test code = 2201) 4.3 G/DL CALC GLOBULIN (test code = 3.7 G/DL 2239) CALC A/G RATIO (test code = 1.2 RATIO 2233) BILIRUBIN, TOTAL (test code = 0.5 MG/DL 2206) ALKALINE PHOSPHATASE (test 120 U/L code = 2204) AST (test code = 2218) 22 U/L ALT (test code = 2219) 49 U/L LIPID [id number] 00:00:00 Test Item Value Reference Range Interpretation Comments CHOLESTEROL (test code = 2210) 224 MG/DL TRIGLYCERIDES (test code = 2232) 361 MG/DL HDL CHOLESTEROL (test code = 2220) 45 MG/DL CALC LDL CHOL (test code = 2237) 127 MG/DL RISK RATIO LDL/HDL (test code = 2.82 RATIO 2238) HEMOGLOBIN [id number] 00:00:00 Test Item Value Reference Range Interpretation Comments HEMOGLOBIN A1c (test code = 15469) 5.9 % LIPID [id number] 00:00:00 Test Item Value Reference Range Interpretation Comments CHOLESTEROL (test code = 2210) 224 MG/DL TRIGLYCERIDES (test code = 2232) 361 MG/DL HDL CHOLESTEROL (test code = 2220) 45 MG/DL CALC LDL CHOL (test code = 2237) 127 MG/DL RISK RATIO LDL/HDL (test code = 2.82 RATIO 2238) HEMOGLOBIN [id number] 00:00:00 Test Item Value Reference Range Interpretation Comments HEMOGLOBIN A1c (test code = 93875) 5.9 % LIPID [id number] 00:00:00 Test Item Value Reference Range Interpretation Comments CHOLESTEROL (test code = 2210) 224 MG/DL TRIGLYCERIDES (test code = 2232) 361 MG/DL HDL CHOLESTEROL (test code = 2220) 45 MG/DL CALC LDL CHOL (test code = 2237) 127 MG/DL RISK RATIO LDL/HDL (test code = 2.82 RATIO 2238) HEMOGLOBIN [id number] 00:00:00 Test Item Value Reference Range Interpretation Comments HEMOGLOBIN A1c (test code = 63189) 5.9 % HEMOGLOBIN [id number] 00:00:00 Test Item Value Reference Range Interpretation Comments HEMOGLOBIN A1c (test code = 08397) 5.9 % HEMOGLOBIN [id number] 00:00:00 Test Item Value Reference Range Interpretation Comments HEMOGLOBIN A1c (test code = 36518) 5.9 % COMPREHENSIVE METABOLIC [id number] 00:00:00 Test Item Value Reference Range Interpretation Comments GLUCOSE (test code = 2217) 150 MG/DL BUN (test code = 2208) 14 MG/DL CREATININE (test code = 2214) 1.22 MG/DL eGFR AMER. (test code 79 ML/MIN/1.73 = 40796) eGFR NON- AMER. (test 68 ML/MIN/1.73 code = 26222) CALC BUN/CREAT (test code = 11 RATIO 2235) SODIUM (test code = 2231) 141 MEQ/L POTASSIUM (test code = 2228) 4.5 MEQ/L CHLORIDE (test code = 2215) 99 MEQ/L CARBON DIOXIDE (test code = 33 MEQ/L 2205) CALCIUM (test code = 2209) 10.1 MG/DL PROTEIN, TOTAL (test code = 8.0 G/DL 2228) ALBUMIN (test code = 2201) 4.3 G/DL CALC GLOBULIN (test code = 3.7 G/DL 0) CALC A/G RATIO (test code = 1.2 RATIO 4) BILIRUBIN, TOTAL (test code = 0.5 MG/DL 2206) ALKALINE PHOSPHATASE (test 120 U/L code = 2204) AST (test code = 2218) 22 U/L ALT (test code = 2219) 49 U/L COMPREHENSIVE METABOLIC [id number] 00:00:00 Test Item Value Reference Range Interpretation Comments GLUCOSE (test code = 2217) 150 MG/DL BUN (test code = 2208) 14 MG/DL CREATININE (test code = 2214) 1.22 MG/DL eGFR AMER. (test code 79 ML/MIN/1.73 = 42586) eGFR NON- AMER. (test 68 ML/MIN/1.73 code = 58332) CALC BUN/CREAT (test code = 11 RATIO 2235) SODIUM (test code = 2231) 141 MEQ/L POTASSIUM (test code = 2228) 4.5 MEQ/L CHLORIDE (test code = 2215) 99 MEQ/L CARBON DIOXIDE (test code = 33 MEQ/L 2206) CALCIUM (test code = 2209) 10.1 MG/DL PROTEIN, TOTAL (test code = 8.0 G/DL 222) ALBUMIN (test code = 2201) 4.3 G/DL CALC GLOBULIN (test code = 3.7 G/DL 2240) CALC A/G RATIO (test code = 1.2 RATIO 2234) BILIRUBIN, TOTAL (test code = 0.5 MG/DL 220) ALKALINE PHOSPHATASE (test 120 U/L code = 2204) AST (test code = 2218) 22 U/L ALT (test code = 2219) 49 U/L COMPREHENSIVE METABOLIC [id number] 00:00:00 Test Item Value Reference Range Interpretation Comments GLUCOSE (test code = 2217) 150 MG/DL BUN (test code = 2208) 14 MG/DL CREATININE (test code = 2214) 1.22 MG/DL eGFR AMER. (test code 79 ML/MIN/1.73 = 94262) eGFR NON- AMER. (test 68 ML/MIN/1.73 code = 90134) CALC BUN/CREAT (test code = 11 RATIO 2235) SODIUM (test code = 2231) 141 MEQ/L POTASSIUM (test code = 2228) 4.5 MEQ/L CHLORIDE (test code = 2215) 99 MEQ/L CARBON DIOXIDE (test code = 33 MEQ/L 2206) CALCIUM (test code = 2209) 10.1 MG/DL PROTEIN, TOTAL (test code = 8.0 G/DL 2228) ALBUMIN (test code = 2201) 4.3 G/DL CALC GLOBULIN (test code = 3.7 G/DL 2240) CALC A/G RATIO (test code = 1.2 RATIO 2234) BILIRUBIN, TOTAL (test code = 0.5 MG/DL 2207) ALKALINE PHOSPHATASE (test 120 U/L code = 2204) AST (test code = 2218) 22 U/L ALT (test code = 2219) 49 U/L COVID-19 (ID NOW RAPID TESTING)2020-09-23 16:11:00 Test Item Value Reference Range Interpretation Comments SARS-CoV-2 Rapid ID NOW Not Detected Not Detected (test code = 76273-3) ZAIDA (test code = ZAIDA) ID NOW COVID-19 Assay is an isothermal nucleic acid amplification test intended for the qualitative detection of nucleic acid from SARS-CoV-2 viral RNA in nasopharyngeal ([employer]) specimens. It is used under Emergency Use [...] indicated. Lab Interpretation Normal (test code = 98547-8) [facility]2020-08-14 18:18:00 Test Item Value Reference Range Interpretation Comments SARS-CoV-2 Rapid ID NOW Not Detected Not Detected (test code = 70510-9) ZAIDA (test code = ZAIDA) ID NOW COVID-19 Assay is an isothermal nucleic acid amplification test intended for the qualitative detection of nucleic acid from SARS-CoV-2 viral RNA in nasopharyngeal ([employer]) specimens. It is used under Emergency Use [...] indicated. Lab Interpretation Normal (test code = 19768-0) [facility] [id number] 17:57:50 Interstitial vascular congestion. Bibasilar streaky opacities, [...] 12:59 PM CDTXR CHEST 2 VWHISTORY: 50 year s-old; Male; sob COMPARISON: NoneFINDINGS:Mild interstitial vascular congestion is seen. Bibasilar streaky opacitiesare noted, likely subsegmental atelectasis. No pleural effusion orpneumothorax is identified.The cardiomediastinal silhouette is upper normal.No acute osseous abnormality is identified. Left humeral head anchoringscrews are noted.IMPRESSIONInterstitial vascular congestion.Bibasilar streaky opacities, likely subsegmental atelectasis. Preliminary Report Dictated by Resident: Afsaneh Presley MD., have reviewed this study and agree with theabove report.[id number] 17:28:00 Test Item Value Reference Range Interpretation Comments TROPONIN I (test 0.001 ng/mL See_Comment [Automated code = 7577604364) message] The system which generated this result [...] ? Lab Interpretation Normal (test code = 76894-9) [facility] [id number] 17:25:00 Test Item Value Reference Range Interpretation Comments NT-proBNP (test code 129 pg/mL See_Comment H [Autom ated = [id number]) message] The system which generated this result transmitted reference range : <=125. The reference range was not used to interpret this result as normal/abnormal . ZAIDA (test code = ZAIDA) Biotin has been reported to cause a negative bias, interpret results relative to patient's use of biotin. Lab Interpretation Abnormal (test code = 30714-6) [facility] 17:17:00 Test Item Value Reference Range Interpretation Comments APTT Patient (test See_Comment [Automat ed code = 3173-2) message] The system which generated this result transmitted reference range : 23 - 38 Seconds . The reference range was not used to interpr et this result as normal/abnormal . ZAIDA (test code = ZAIDA) The [facility] patient population mean normal value for aPTT is 30 seconds. Lab Interpretation Normal (test code = 09457-4) [facility]OL[facility] (32270)2020-08-14 17:17:00 Test Item Value Reference Range Interpretation Comments NA (test code = 137 mmol/L 135-145 [id number]) K (test code = 4.3 mmol/L 3.5-5 9221706131) CL (test code = 97 mmol/L 98-108 L 1962969202) CO2 TOTAL (test code = 31 mmol/L 23-31 0641431066) AGAP (test code = 2-16 9500199832) BUN (test code = 14 mg/dL 7-23 1333248556) GLUCOSE (test code = 135 mg/dL 70-110 H [id number]) CREATININE (test code = 1.22 mg/dL 0.6-1.25 6237990503) TOTAL BILI (test code = 1.0 mg/dL 0.1-1.1 0230505372) CALCIUM (test code = 9.1 mg/dL 8.6-10.6 6771310671) T PROTEIN (test code = 7.6 g/dL 6.3-8.2 6593463474) ALBUMIN (test code = 4.0 g/dL 3.5-5 9005693608) ALK PHOS (test code = 90 U/L 34-122 [id number]) ALTv (test code = 22 U/L 5-50 1742-6) AST(SGOT) (test code = 25 U/L 13-40 [id number]) eGFR Calculation mL/min/1.73m2 (Non-) (test code = 0073159126) eGFR Calculation mL/min/1.73m2 () (test code = 5990098169) ZAIDA (test code = ZAIDA) Association of [...] tests). Lab Interpretation Abnormal (test code = 61053-5) [facility] [id number] 17:16:00 Test Item Value Reference Range Interpretation Comments LIPASE (test code = 7783347059) 63 U/L 0-220 Lab Interpretation (test code = Normal 50024-8) [facility] / [id number] 17:14:00 Test Item Value Reference Range Interpretation Comments PROTIME PATIENT (test See_Comment [Auto mated message] code = 5964-2) The system [employer] ich generated this result transmitted ref erence range: 12.0 - 1 4.7 Seconds. The re ference range was not u sed to interpret this result as normal/abnor mal. INR (test code = 6301-6) Nor mal INR <1.1; Warfarin Therap eutic range 2.0 to 3. 0 or 2.5 to 3.5, dep ending upon the indica tions. Lab Interpretation (test Normal code = 75949-6) [facility] [id number] 17:09:00 Test Item Value Reference Range Interpretation Comments WBC (test code = See_Comment [Automated 9690-2) message] The sy stem which generated this result transmitted reference range : 4.20 - 10.70 10*3/?L. The reference range was not used to interpret this result as normal/abnormal . RBC (test code = See_Comment [Automated 739-8) message] The sy stem which generated this [...] RDW-SD (test code = 41.4 fL 38.5-51.6 88149-5) RDW-CV (test code = 14.6 % 12.1-15.4 788-0) PLT (test code = See_Comment H [Automated 777-3) message] The sy stem which generated this result transmitted reference range : 150 - 328 10*3/ ?L. The reference r matthew was not used to interpret this result as normal/abnormal . MPV (test code = 10.8 fL 9.8-13 62292-0) NRBC/100 WBC (test See_Comment [Automat ed code = 1744435728) message] The system which generated this result transmitted reference range : 0.0 - 10.0 /100 WBCs. The refer ence range was not u sed to interpret th is result as normal/abnormal . NRBC x10^3 (test code <0.01 See_Comment [Auto mated = 2462171733) message] The s ystem which generated this result transmitted reference range : 10*3/?L. The reference range was not used to interpret this result as normal/abnormal . GRAN MAT (NEUT) % 65.2 % (test code = 770-8) IMM GRAN % (test code 0.30 % = 2131538741) LYMPH % (test code = 18.9 % 736-9) MONO % (test code = 11.3 % 5905-5) EOS % (test code = 3.7 % 713-8) BASO % (test code = 0.6 % 706-2) GRAN MAT x10^3(ANC) 5.78 10*3/uL 1.99-6.95 (test code = 6546397768) IMM GRAN x10^3 (test 0.03 10*3/uL 0-0.06 code = 7764751433) LYMPH x10^3 (test code 1.68 10*3/uL 1.09-3.23 = 731-0) MONO x10^3 (test code 1.00 10*3/uL 0.36-1.02 = 742-7) EOS x10^3 (test code = 0.33 10*3/uL 0.06-0.53 711-2) BASO x10^3 (test code 0.05 10*3/uL 0.01-0.09 = 704-7) Lab Interpretation Abnormal (test code = 02381-4) [facility] [id number] 00:00:00 Test Item Value Reference Range Interpretation Comments URIC ACID (test code = 2233) 9.8 MG/DL CBC W/AUTO [id number] 00:00:00 Test Item Value Reference Range Interpretation Comments WBC (test code = 1001) 7.8 K/UL RBC (test code = 1002) 5.69 M/UL HEMOGLOBIN (test code = 1003) 12.6 G/DL HEMATOCRIT (test code = 1004) 41.1 % MCV (test code = 1005) 72.2 fL MCH (test code = 1006) 22.1 PG MCHC (test code = 1007) 30.7 G/DL RDW (test code = 1038) 14.0 % NEUTROPHILS (test code = 1008) 66.8 % LYMPHOCYTES (test code = 1010) 21.0 % MONOCYTES (test code = 1011) 8.4 % EOSINOPHILS (test code = 1012) 3.4 % BASOPHILS (test code = 1013) 0.4 % PLATELET COUNT (test code = 1015) 322 K/UL CBC W/AUTO [id number] 00:00:00 Test Item Value Reference Range Interpretation Comments WBC (test code = 1001) 7.8 K/UL RBC (test code = 1002) 5.69 M/UL HEMOGLOBIN (test code = 1003) 12.6 G/DL HEMATOCRIT (test code = 1004) 41.1 % MCV (test code = 1005) 72.2 fL MCH (test code = 1006) 22.1 PG MCHC (test code = 1007) 30.7 G/DL RDW (test code = 1038) 14.0 % NEUTROPHILS (test code = 1008) 66.8 % LYMPHOCYTES (test code = 1010) 21.0 % MONOCYTES (test code = 1011) 8.4 % EOSINOPHILS (test code = 1012) 3.4 % BASOPHILS (test code = 1013) 0.4 % PLATELET COUNT (test code = 1015) 322 K/UL CBC W/AUTO [id number] 00:00:00 Test Item Value Reference Range Interpretation Comments WBC (test code = 1001) 7.8 K/UL RBC (test code = 1002) 5.69 M/UL HEMOGLOBIN (test code = 1003) 12.6 G/DL HEMATOCRIT (test code = 1004) 41.1 % MCV (test code = 1005) 72.2 fL MCH (test code = 1006) 22.1 PG MCHC (test code = 1007) 30.7 G/DL RDW (test code = 1038) 14.0 % NEUTROPHILS (test code = 1008) 66.8 % LYMPHOCYTES (test code = 1010) 21.0 % MONOCYTES (test code = 1011) 8.4 % EOSINOPHILS (test code = 1012) 3.4 % BASOPHILS (test code = 1013) 0.4 % PLATELET COUNT (test code = 1015) 322 K/UL COMPREHENSIVE METABOLIC [id number] 00:00:00 Test Item Value Reference Range Interpretation Comments GLUCOSE (test code = 2217) 100 MG/DL BUN (test code = 2208) 13 MG/DL CREATININE (test code = 2214) 1.10 MG/DL eGFR AMER. (test code 91 ML/MIN/1.73 = 39964) eGFR NON- AMER. (test 78 ML/MIN/1.73 code = 61286) CALC BUN/CREAT (test code = 12 RATIO 2235) SODIUM (test code = 2231) 140 MEQ/L POTASSIUM (test code = 2228) 4.2 MEQ/L CHLORIDE (test code = 2215) 97 MEQ/L CARBON DIOXIDE (test code = 32 MEQ/L 2205) CALCIUM (test code = 2209) 9.4 MG/DL PROTEIN, TOTAL (test code = 8.1 G/DL 2228) ALBUMIN (test code = 2201) 4.3 G/DL CALC GLOBULIN (test code = 3.8 G/DL 2240) CALC A/G RATIO (test code = 1.1 RATIO 2234) BILIRUBIN, TOTAL (test code = 0.4 MG/DL 2206) ALKALINE PHOSPHATASE (test 106 U/L code = 2204) AST (test code = 2218) 16 U/L ALT (test code = 2219) 22 U/L COMPREHENSIVE METABOLIC [id number] 00:00:00 Test Item Value Reference Range Interpretation Comments GLUCOSE (test code = 2217) 100 MG/DL BUN (test code = 2208) 13 MG/DL CREATININE (test code = 2214) 1.10 MG/DL eGFR AMER. (test code 91 ML/MIN/1.73 = 22991) eGFR NON- AMER. (test 78 ML/MIN/1.73 code = 34416) CALC BUN/CREAT (test code = 12 RATIO 2235) SODIUM (test code = 2231) 140 MEQ/L POTASSIUM (test code = 2228) 4.2 MEQ/L CHLORIDE (test code = 2215) 97 MEQ/L CARBON DIOXIDE (test code = 32 MEQ/L 2205) CALCIUM (test code = 2209) 9.4 MG/DL PROTEIN, TOTAL (test code = 8.1 G/DL 2228) ALBUMIN (test code = 220) 4.3 G/DL CALC GLOBULIN (test code = 3.8 G/DL 2239) CALC A/G RATIO (test code = 1.1 RATIO 2233) BILIRUBIN, TOTAL (test code = 0.4 MG/DL 2206) ALKALINE PHOSPHATASE (test 106 U/L code = 2204) AST (test code = 2218) 16 U/L ALT (test code = 2219) 22 U/L LIPID [id number] 00:00:00 Test Item Value Reference Range Interpretation Comments CHOLESTEROL (test code = 2210) 263 MG/DL TRIGLYCERIDES (test code = 2232) 413 MG/DL HDL CHOLESTEROL (test code = 43 MG/DL 2220) CALC LDL CHOL (test code = 2237) NOTE MG/DL RISK RATIO LDL/HDL (test code = (NOTE) RATIO 2238) LIPID [id number] 00:00:00 Test Item Value Reference Range Interpretation Comments CHOLESTEROL (test code = 2210) 263 MG/DL TRIGLYCERIDES (test code = 2232) 413 MG/DL HDL CHOLESTEROL (test code = 43 MG/DL 2220) CALC LDL CHOL (test code = 2237) NOTE MG/DL RISK RATIO LDL/HDL (test code = (NOTE) RATIO 2238) HEMOGLOBIN [id number] 00:00:00 Test Item Value Reference Range Interpretation Comments HEMOGLOBIN A1c (test code = 60482) 6.9 % HEMOGLOBIN [id number] 00:00:00 Test Item Value Reference Range Interpretation Comments HEMOGLOBIN A1c (test code = 89839) 6.9 % HEMOGLOBIN [id number] 00:00:00 Test Item Value Reference Range Interpretation Comments HEMOGLOBIN A1c (test code = 51718) 6.9 % URIC [id number] 00:00:00 Test Item Value Reference Range Interpretation Comments URIC ACID (test code = 2233) 9.8 MG/DL URIC [id number] 00:00:00 Test Item Value Reference Range Interpretation Comments URIC ACID (test code = 2233) 9.8 MG/DL CBC W/AUTO [id number] 00:00:00 Test Item Value Reference Range Interpretation Comments WBC (test code = 1001) 7.8 K/UL RBC (test code = 1002) 5.69 M/UL HEMOGLOBIN (test code = 1003) 12.6 G/DL HEMATOCRIT (test code = 1004) 41.1 % MCV (test code = 1005) 72.2 fL MCH (test code = 1006) 22.1 PG MCHC (test code = 1007) 30.7 G/DL RDW (test code = 1038) 14.0 % NEUTROPHILS (test code = 1008) 66.8 % LYMPHOCYTES (test code = 1010) 21.0 % MONOCYTES (test code = 1011) 8.4 % EOSINOPHILS (test code = 1012) 3.4 % BASOPHILS (test code = 1013) 0.4 % PLATELET COUNT (test code = 1015) 322 K/UL CBC W/AUTO [id number] 00:00:00 Test Item Value Reference Range Interpretation Comments WBC (test code = 1001) 7.8 K/UL RBC (test code = 1002) 5.69 M/UL HEMOGLOBIN (test code = 1003) 12.6 G/DL HEMATOCRIT (test code = 1004) 41.1 % MCV (test code = 1005) 72.2 fL MCH (test code = 1006) 22.1 PG MCHC (test code = 1007) 30.7 G/DL RDW (test code = 1038) 14.0 % NEUTROPHILS (test code = 1008) 66.8 % LYMPHOCYTES (test code = 1010) 21.0 % MONOCYTES (test code = 1011) 8.4 % EOSINOPHILS (test code = 1012) 3.4 % BASOPHILS (test code = 1013) 0.4 % PLATELET COUNT (test code = 1015) 322 K/UL CBC W/AUTO [id number] 00:00:00 Test Item Value Reference Range Interpretation Comments WBC (test code = 1001) 7.8 K/UL RBC (test code = 1002) 5.69 M/UL HEMOGLOBIN (test code = 1003) 12.6 G/DL HEMATOCRIT (test code = 1004) 41.1 % MCV (test code = 1005) 72.2 fL MCH (test code = 1006) 22.1 PG MCHC (test code = 1007) 30.7 G/DL RDW (test code = 1038) 14.0 % NEUTROPHILS (test code = 1008) 66.8 % LYMPHOCYTES (test code = 1010) 21.0 % MONOCYTES (test code = 1011) 8.4 % EOSINOPHILS (test code = 1012) 3.4 % BASOPHILS (test code = 1013) 0.4 % PLATELET COUNT (test code = 1015) 322 K/UL COMPREHENSIVE METABOLIC [id number] 00:00:00 Test Item Value Reference Range Interpretation Comments GLUCOSE (test code = 2217) 100 MG/DL BUN (test code = 2208) 13 MG/DL CREATININE (test code = 2214) 1.10 MG/DL eGFR AMER. (test code 91 ML/MIN/1.73 = 32809) eGFR NON- AMER. (test 78 ML/MIN/1.73 code = 74816) CALC BUN/CREAT (test code = 12 RATIO 2235) SODIUM (test code = 2231) 140 MEQ/L POTASSIUM (test code = 2228) 4.2 MEQ/L CHLORIDE (test code = 2215) 97 MEQ/L CARBON DIOXIDE (test code = 32 MEQ/L 6) CALCIUM (test code = 2209) 9.4 MG/DL PROTEIN, TOTAL (test code = 8.1 G/DL 2228) ALBUMIN (test code = 2201) 4.3 G/DL CALC GLOBULIN (test code = 3.8 G/DL 0) CALC A/G RATIO (test code = 1.1 RATIO 2234) BILIRUBIN, TOTAL (test code = 0.4 MG/DL 2206) ALKALINE PHOSPHATASE (test 106 U/L code = 2204) AST (test code = 2218) 16 U/L ALT (test code = 2219) 22 U/L COMPREHENSIVE METABOLIC [id number] 00:00:00 Test Item Value Reference Range Interpretation Comments GLUCOSE (test code = 2217) 100 MG/DL BUN (test code = 2208) 13 MG/DL CREATININE (test code = 2214) 1.10 MG/DL eGFR AMER. (test code 91 ML/MIN/1.73 = 08325) eGFR NON- AMER. (test 78 ML/MIN/1.73 code = 87500) CALC BUN/CREAT (test code = 12 RATIO 2235) SODIUM (test code = 2231) 140 MEQ/L POTASSIUM (test code = 2228) 4.2 MEQ/L CHLORIDE (test code = 2215) 97 MEQ/L CARBON DIOXIDE (test code = 32 MEQ/L 2205) CALCIUM (test code = 2209) 9.4 MG/DL PROTEIN, TOTAL (test code = 8.1 G/DL 2228) ALBUMIN (test code = 2201) 4.3 G/DL CALC GLOBULIN (test code = 3.8 G/DL 224) CALC A/G RATIO (test code = 1.1 RATIO 2234) BILIRUBIN, TOTAL (test code = 0.4 MG/DL 2206) ALKALINE PHOSPHATASE (test 106 U/L code = 2204) AST (test code = 2218) 16 U/L ALT (test code = 2219) 22 U/L LIPID [id number] 00:00:00 Test Item Value Reference Range Interpretation Comments CHOLESTEROL (test code = 2210) 263 MG/DL TRIGLYCERIDES (test code = 2232) 413 MG/DL HDL CHOLESTEROL (test code = 43 MG/DL 2220) CALC LDL CHOL (test code = 2237) NOTE MG/DL RISK RATIO LDL/HDL (test code = (NOTE) RATIO 2238) LIPID [id number] 00:00:00 Test Item Value Reference Range Interpretation Comments CHOLESTEROL (test code = 2210) 263 MG/DL TRIGLYCERIDES (test code = 2232) 413 MG/DL HDL CHOLESTEROL (test code = 43 MG/DL 2220) CALC LDL CHOL (test code = 2237) NOTE MG/DL RISK RATIO LDL/HDL (test code = (NOTE) RATIO 2238) HEMOGLOBIN [id number] 00:00:00 Test Item Value Reference Range Interpretation Comments HEMOGLOBIN A1c (test code = 66148) 6.9 % HEMOGLOBIN [id number] 00:00:00 Test Item Value Reference Range Interpretation Comments HEMOGLOBIN A1c (test code = 89196) 6.9 % HEMOGLOBIN [id number] 00:00:00 Test Item Value Reference Range Interpretation Comments HEMOGLOBIN A1c (test code = 56697) 6.9 % URIC [id number] 00:00:00 Test Item Value Reference Range Interpretation Comments URIC ACID (test code = 2233) 9.8 MG/DL URIC [id number] 00:00:00 Test Item Value Reference Range Interpretation Comments URIC ACID (test code = 2233) 9.8 MG/DL CBC W/AUTO [id number] 00:00:00 Test Item Value Reference Range Interpretation Comments WBC (test code = 1001) 7.8 K/UL RBC (test code = 1002) 5.69 M/UL HEMOGLOBIN (test code = 1003) 12.6 G/DL HEMATOCRIT (test code = 1004) 41.1 % MCV (test code = 1005) 72.2 fL MCH (test code = 1006) 22.1 PG MCHC (test code = 1007) 30.7 G/DL RDW (test code = 1038) 14.0 % NEUTROPHILS (test code = 1008) 66.8 % LYMPHOCYTES (test code = 1010) 21.0 % MONOCYTES (test code = 1011) 8.4 % EOSINOPHILS (test code = 1012) 3.4 % BASOPHILS (test code = 1013) 0.4 % PLATELET COUNT (test code = 1015) 322 K/UL CBC W/AUTO [id number] 00:00:00 Test Item Value Reference Range Interpretation Comments WBC (test code = 1001) 7.8 K/UL RBC (test code = 1002) 5.69 M/UL HEMOGLOBIN (test code = 1003) 12.6 G/DL HEMATOCRIT (test code = 1004) 41.1 % MCV (test code = 1005) 72.2 fL MCH (test code = 1006) 22.1 PG MCHC (test code = 1007) 30.7 G/DL RDW (test code = 1038) 14.0 % NEUTROPHILS (test code = 1008) 66.8 % LYMPHOCYTES (test code = 1010) 21.0 % MONOCYTES (test code = 1011) 8.4 % EOSINOPHILS (test code = 1012) 3.4 % BASOPHILS (test code = 1013) 0.4 % PLATELET COUNT (test code = 1015) 322 K/UL COMPREHENSIVE METABOLIC [id number] 00:00:00 Test Item Value Reference Range Interpretation Comments GLUCOSE (test code = 2217) 100 MG/DL BUN (test code = 2208) 13 MG/DL CREATININE (test code = 2214) 1.10 MG/DL eGFR AMER. (test code 91 ML/MIN/1.73 = 63666) eGFR NON- AMER. (test 78 ML/MIN/1.73 code = 89522) CALC BUN/CREAT (test code = 12 RATIO 2235) SODIUM (test code = 2231) 140 MEQ/L POTASSIUM (test code = 2228) 4.2 MEQ/L CHLORIDE (test code = 2215) 97 MEQ/L CARBON DIOXIDE (test code = 32 MEQ/L 2205) CALCIUM (test code = 2209) 9.4 MG/DL PROTEIN, TOTAL (test code = 8.1 G/DL 2228) ALBUMIN (test code = 2201) 4.3 G/DL CALC GLOBULIN (test code = 3.8 G/DL 0) CALC A/G RATIO (test code = 1.1 RATIO 2233) BILIRUBIN, TOTAL (test code = 0.4 MG/DL 2206) ALKALINE PHOSPHATASE (test 106 U/L code = 2204) AST (test code = 2218) 16 U/L ALT (test code = 2219) 22 U/L LIPID [id number] 00:00:00 Test Item Value Reference Range Interpretation Comments CHOLESTEROL (test code = 2210) 263 MG/DL TRIGLYCERIDES (test code = 2232) 413 MG/DL HDL CHOLESTEROL (test code = 43 MG/DL 2219) CALC LDL CHOL (test code = 2237) NOTE MG/DL RISK RATIO LDL/HDL (test code = (NOTE) RATIO 2238) HEMOGLOBIN [id number] 00:00:00 Test Item Value Reference Range Interpretation Comments HEMOGLOBIN A1c (test code = 67236) 6.9 % HEMOGLOBIN [id number] 00:00:00 Test Item Value Reference Range Interpretation Comments HEMOGLOBIN A1c (test code = 45635) 6.9 % URIC [id number] 00:00:00 Test Item Value Reference Range Interpretation Comments URIC ACID (test code = 2233) 9.8 MG/DL CBC W/AUTO [id number] 00:00:00 Test Item Value Reference Range Interpretation Comments WBC (test code = 1001) 7.8 K/UL RBC (test code = 1002) 5.69 M/UL HEMOGLOBIN (test code = 1003) 12.6 G/DL HEMATOCRIT (test code = 1004) 41.1 % MCV (test code = 1005) 72.2 fL MCH (test code = 1006) 22.1 PG MCHC (test code = 1007) 30.7 G/DL RDW (test code = 1038) 14.0 % NEUTROPHILS (test code = 1008) 66.8 % LYMPHOCYTES (test code = 1010) 21.0 % MONOCYTES (test code = 1011) 8.4 % EOSINOPHILS (test code = 1012) 3.4 % BASOPHILS (test code = 1013) 0.4 % PLATELET COUNT (test code = 1015) 322 K/UL CBC W/AUTO [id number] 00:00:00 Test Item Value Reference Range Interpretation Comments WBC (test code = 1001) 7.8 K/UL RBC (test code = 1002) 5.69 M/UL HEMOGLOBIN (test code = 1003) 12.6 G/DL HEMATOCRIT (test code = 1004) 41.1 % MCV (test code = 1005) 72.2 fL MCH (test code = 1006) 22.1 PG MCHC (test code = 1007) 30.7 G/DL RDW (test code = 1038) 14.0 % NEUTROPHILS (test code = 1008) 66.8 % LYMPHOCYTES (test code = 1010) 21.0 % MONOCYTES (test code = 1011) 8.4 % EOSINOPHILS (test code = 1012) 3.4 % BASOPHILS (test code = 1013) 0.4 % PLATELET COUNT (test code = 1015) 322 K/UL COMPREHENSIVE METABOLIC [id number] 00:00:00 Test Item Value Reference Range Interpretation Comments GLUCOSE (test code = 2217) 100 MG/DL BUN (test code = 2208) 13 MG/DL CREATININE (test code = 2214) 1.10 MG/DL eGFR AMER. (test code 91 ML/MIN/1.73 = 68997) eGFR NON- AMER. (test 78 ML/MIN/1.73 code = 50285) CALC BUN/CREAT (test code = 12 RATIO 2235) SODIUM (test code = 2231) 140 MEQ/L POTASSIUM (test code = 2228) 4.2 MEQ/L CHLORIDE (test code = 2215) 97 MEQ/L CARBON DIOXIDE (test code = 32 MEQ/L 2205) CALCIUM (test code = 2209) 9.4 MG/DL PROTEIN, TOTAL (test code = 8.1 G/DL 2228) ALBUMIN (test code = 2201) 4.3 G/DL CALC GLOBULIN (test code = 3.8 G/DL 2239) CALC A/G RATIO (test code = 1.1 RATIO 2233) BILIRUBIN, TOTAL (test code = 0.4 MG/DL 2206) ALKALINE PHOSPHATASE (test 106 U/L code = 220) AST (test code = 2218) 16 U/L ALT (test code = 2219) 22 U/L LIPID [id number] 00:00:00 Test Item Value Reference Range Interpretation Comments CHOLESTEROL (test code = 2210) 263 MG/DL TRIGLYCERIDES (test code = 2232) 413 MG/DL HDL CHOLESTEROL (test code = 43 MG/DL 2219) CALC LDL CHOL (test code = 2237) NOTE MG/DL RISK RATIO LDL/HDL (test code = (NOTE) RATIO 2238) HEMOGLOBIN [id number] 00:00:00 Test Item Value Reference Range Interpretation Comments HEMOGLOBIN A1c (test code = 08994) 6.9 % HEMOGLOBIN [id number] 00:00:00 Test Item Value Reference Range Interpretation Comments HEMOGLOBIN A1c (test code = 10129) 6.9 % URIC [id number] 00:00:00 Test Item Value Reference Range Interpretation Comments URIC ACID (test code = 2233) 9.8 MG/DL CBC W/AUTO [id number] 00:00:00 Test Item Value Reference Range Interpretation Comments WBC (test code = 1001) 7.8 K/UL RBC (test code = 1002) 5.69 M/UL HEMOGLOBIN (test code = 1003) 12.6 G/DL HEMATOCRIT (test code = 1004) 41.1 % MCV (test code = 1005) 72.2 fL MCH (test code = 1006) 22.1 PG MCHC (test code = 1007) 30.7 G/DL RDW (test code = 1038) 14.0 % NEUTROPHILS (test code = 1008) 66.8 % LYMPHOCYTES (test code = 1010) 21.0 % MONOCYTES (test code = 1011) 8.4 % EOSINOPHILS (test code = 1012) 3.4 % BASOPHILS (test code = 1013) 0.4 % PLATELET COUNT (test code = 1015) 322 K/UL CBC W/AUTO [id number] 00:00:00 Test Item Value Reference Range Interpretation Comments WBC (test code = 1001) 7.8 K/UL RBC (test code = 1002) 5.69 M/UL HEMOGLOBIN (test code = 1003) 12.6 G/DL HEMATOCRIT (test code = 1004) 41.1 % MCV (test code = 1005) 72.2 fL MCH (test code = 1006) 22.1 PG MCHC (test code = 1007) 30.7 G/DL RDW (test code = 1038) 14.0 % NEUTROPHILS (test code = 1008) 66.8 % LYMPHOCYTES (test code = 1010) 21.0 % MONOCYTES (test code = 1011) 8.4 % EOSINOPHILS (test code = 1012) 3.4 % BASOPHILS (test code = 1013) 0.4 % PLATELET COUNT (test code = 1015) 322 K/UL CBC W/AUTO [id number] 00:00:00 Test Item Value Reference Range Interpretation Comments WBC (test code = 1001) 7.8 K/UL RBC (test code = 1002) 5.69 M/UL HEMOGLOBIN (test code = 1003) 12.6 G/DL HEMATOCRIT (test code = 1004) 41.1 % MCV (test code = 1005) 72.2 fL MCH (test code = 1006) 22.1 PG MCHC (test code = 1007) 30.7 G/DL RDW (test code = 1038) 14.0 % NEUTROPHILS (test code = 1008) 66.8 % LYMPHOCYTES (test code = 1010) 21.0 % MONOCYTES (test code = 1011) 8.4 % EOSINOPHILS (test code = 1012) 3.4 % BASOPHILS (test code = 1013) 0.4 % PLATELET COUNT (test code = 1015) 322 K/UL COMPREHENSIVE METABOLIC [id number] 00:00:00 Test Item Value Reference Range Interpretation Comments GLUCOSE (test code = 2217) 100 MG/DL BUN (test code = 2208) 13 MG/DL CREATININE (test code = 2214) 1.10 MG/DL eGFR AMER. (test code 91 ML/MIN/1.73 = 51281) eGFR NON- AMER. (test 78 ML/MIN/1.73 code = 26646) CALC BUN/CREAT (test code = 12 RATIO 2235) SODIUM (test code = 2231) 140 MEQ/L POTASSIUM (test code = 2228) 4.2 MEQ/L CHLORIDE (test code = 2215) 97 MEQ/L CARBON DIOXIDE (test code = 32 MEQ/L 2205) CALCIUM (test code = 2209) 9.4 MG/DL PROTEIN, TOTAL (test code = 8.1 G/DL 2228) ALBUMIN (test code = 2201) 4.3 G/DL CALC GLOBULIN (test code = 3.8 G/DL 2239) CALC A/G RATIO (test code = 1.1 RATIO 2234) BILIRUBIN, TOTAL (test code = 0.4 MG/DL 2206) ALKALINE PHOSPHATASE (test 106 U/L code = 2204) AST (test code = 2218) 16 U/L ALT (test code = 2219) 22 U/L COMPREHENSIVE METABOLIC [id number] 00:00:00 Test Item Value Reference Range Interpretation Comments GLUCOSE (test code = 2217) 100 MG/DL BUN (test code = 2208) 13 MG/DL CREATININE (test code = 2214) 1.10 MG/DL eGFR AMER. (test code 91 ML/MIN/1.73 = 51219) eGFR NON- AMER. (test 78 ML/MIN/1.73 code = 23779) CALC BUN/CREAT (test code = 12 RATIO 2235) SODIUM (test code = 2231) 140 MEQ/L POTASSIUM (test code = 2228) 4.2 MEQ/L CHLORIDE (test code = 2215) 97 MEQ/L CARBON DIOXIDE (test code = 32 MEQ/L 220) CALCIUM (test code = 2209) 9.4 MG/DL PROTEIN, TOTAL (test code = 8.1 G/DL 2228) ALBUMIN (test code = 2201) 4.3 G/DL CALC GLOBULIN (test code = 3.8 G/DL 2240) CALC A/G RATIO (test code = 1.1 RATIO 4) BILIRUBIN, TOTAL (test code = 0.4 MG/DL 2206) ALKALINE PHOSPHATASE (test 106 U/L code = 2204) AST (test code = 2218) 16 U/L ALT (test code = 2219) 22 U/L LIPID [id number] 00:00:00 Test Item Value Reference Range Interpretation Comments CHOLESTEROL (test code = 2210) 263 MG/DL TRIGLYCERIDES (test code = 2232) 413 MG/DL HDL CHOLESTEROL (test code = 43 MG/DL 2220) CALC LDL CHOL (test code = 2237) NOTE MG/DL RISK RATIO LDL/HDL (test code = (NOTE) RATIO 2238) LIPID [id number] 00:00:00 Test Item Value Reference Range Interpretation Comments CHOLESTEROL (test code = 2210) 263 MG/DL TRIGLYCERIDES (test code = 2232) 413 MG/DL HDL CHOLESTEROL (test code = 43 MG/DL 2220) CALC LDL CHOL (test code = 2237) NOTE MG/DL RISK RATIO LDL/HDL (test code = (NOTE) RATIO 2238) HEMOGLOBIN [id number] 00:00:00 Test Item Value Reference Range Interpretation Comments HEMOGLOBIN A1c (test code = 95824) 6.9 % HEMOGLOBIN [id number] 00:00:00 Test Item Value Reference Range Interpretation Comments HEMOGLOBIN A1c (test code = 00601) 6.9 % HEMOGLOBIN [id number] 00:00:00 Test Item Value Reference Range Interpretation Comments HEMOGLOBIN A1c (test code = 32099) 6.9 % URIC [id number] 00:00:00 Test Item Value Reference Range Interpretation Comments URIC ACID (test code = 2233) 9.8 MG/DL URIC [id number] 00:00:00 Test Item Value Reference Range Interpretation Comments URIC ACID (test code = 2233) 9.8 MG/DL CBC W/AUTO [id number] 00:00:00 Test Item Value Reference Range Interpretation Comments WBC (test code = 1001) 7.8 K/UL RBC (test code = 1002) 5.69 M/UL HEMOGLOBIN (test code = 1003) 12.6 G/DL HEMATOCRIT (test code = 1004) 41.1 % MCV (test code = 1005) 72.2 fL MCH (test code = 1006) 22.1 PG MCHC (test code = 1007) 30.7 G/DL RDW (test code = 1038) 14.0 % NEUTROPHILS (test code = 1008) 66.8 % LYMPHOCYTES (test code = 1010) 21.0 % MONOCYTES (test code = 1011) 8.4 % EOSINOPHILS (test code = 1012) 3.4 % BASOPHILS (test code = 1013) 0.4 % PLATELET COUNT (test code = 1015) 322 K/UL CBC W/AUTO [id number] 00:00:00 Test Item Value Reference Range Interpretation Comments WBC (test code = 1001) 7.8 K/UL RBC (test code = 1002) 5.69 M/UL HEMOGLOBIN (test code = 1003) 12.6 G/DL HEMATOCRIT (test code = 1004) 41.1 % MCV (test code = 1005) 72.2 fL MCH (test code = 1006) 22.1 PG MCHC (test code = 1007) 30.7 G/DL RDW (test code = 1038) 14.0 % NEUTROPHILS (test code = 1008) 66.8 % LYMPHOCYTES (test code = 1010) 21.0 % MONOCYTES (test code = 1011) 8.4 % EOSINOPHILS (test code = 1012) 3.4 % BASOPHILS (test code = 1013) 0.4 % PLATELET COUNT (test code = 1015) 322 K/UL CBC W/AUTO [id number] 00:00:00 Test Item Value Reference Range Interpretation Comments WBC (test code = 1001) 7.8 K/UL RBC (test code = 1002) 5.69 M/UL HEMOGLOBIN (test code = 1003) 12.6 G/DL HEMATOCRIT (test code = 1004) 41.1 % MCV (test code = 1005) 72.2 fL MCH (test code = 1006) 22.1 PG MCHC (test code = 1007) 30.7 G/DL RDW (test code = 1038) 14.0 % NEUTROPHILS (test code = 1008) 66.8 % LYMPHOCYTES (test code = 1010) 21.0 % MONOCYTES (test code = 1011) 8.4 % EOSINOPHILS (test code = 1012) 3.4 % BASOPHILS (test code = 1013) 0.4 % PLATELET COUNT (test code = 1015) 322 K/UL COMPREHENSIVE METABOLIC [id number] 00:00:00 Test Item Value Reference Range Interpretation Comments GLUCOSE (test code = 2217) 100 MG/DL BUN (test code = 2208) 13 MG/DL CREATININE (test code = 2214) 1.10 MG/DL eGFR AMER. (test code 91 ML/MIN/1.73 = 09106) eGFR NON- AMER. (test 78 ML/MIN/1.73 code = 50363) CALC BUN/CREAT (test code = 12 RATIO 2235) SODIUM (test code = 2231) 140 MEQ/L POTASSIUM (test code = 2228) 4.2 MEQ/L CHLORIDE (test code = 2215) 97 MEQ/L CARBON DIOXIDE (test code = 32 MEQ/L 220) CALCIUM (test code = 2209) 9.4 MG/DL PROTEIN, TOTAL (test code = 8.1 G/DL 2228) ALBUMIN (test code = 2201) 4.3 G/DL CALC GLOBULIN (test code = 3.8 G/DL 2240) CALC A/G RATIO (test code = 1.1 RATIO 4) BILIRUBIN, TOTAL (test code = 0.4 MG/DL 2206) ALKALINE PHOSPHATASE (test 106 U/L code = 2204) AST (test code = 2218) 16 U/L ALT (test code = 2219) 22 U/L COMPREHENSIVE METABOLIC [id number] 00:00:00 Test Item Value Reference Range Interpretation Comments GLUCOSE (test code = 2217) 100 MG/DL BUN (test code = 2208) 13 MG/DL CREATININE (test code = 2214) 1.10 MG/DL eGFR AMER. (test code 91 ML/MIN/1.73 = 08956) eGFR NON- AMER. (test 78 ML/MIN/1.73 code = 95799) CALC BUN/CREAT (test code = 12 RATIO 2235) SODIUM (test code = 2231) 140 MEQ/L POTASSIUM (test code = 2228) 4.2 MEQ/L CHLORIDE (test code = 2215) 97 MEQ/L CARBON DIOXIDE (test code = 32 MEQ/L 2206) CALCIUM (test code = 2209) 9.4 MG/DL PROTEIN, TOTAL (test code = 8.1 G/DL 2228) ALBUMIN (test code = 2201) 4.3 G/DL CALC GLOBULIN (test code = 3.8 G/DL 2240) CALC A/G RATIO (test code = 1.1 RATIO 2234) BILIRUBIN, TOTAL (test code = 0.4 MG/DL 220) ALKALINE PHOSPHATASE (test 106 U/L code = 2204) AST (test code = 2218) 16 U/L ALT (test code = 2219) 22 U/L LIPID [id number] 00:00:00 Test Item Value Reference Range Interpretation Comments CHOLESTEROL (test code = 2210) 263 MG/DL TRIGLYCERIDES (test code = 2232) 413 MG/DL HDL CHOLESTEROL (test code = 43 MG/DL 2220) CALC LDL CHOL (test code = 2237) NOTE MG/DL RISK RATIO LDL/HDL (test code = (NOTE) RATIO 2238) LIPID [id number] 00:00:00 Test Item Value Reference Range Interpretation Comments CHOLESTEROL (test code = 2210) 263 MG/DL TRIGLYCERIDES (test code = 2232) 413 MG/DL HDL CHOLESTEROL (test code = 43 MG/DL 2220) CALC LDL CHOL (test code = 2237) NOTE MG/DL RISK RATIO LDL/HDL (test code = (NOTE) RATIO 2238) HEMOGLOBIN [id number] 00:00:00 Test Item Value Reference Range Interpretation Comments HEMOGLOBIN A1c (test code = 54510) 6.9 % HEMOGLOBIN [id number] 00:00:00 Test Item Value Reference Range Interpretation Comments HEMOGLOBIN A1c (test code = 11547) 6.9 % HEMOGLOBIN [id number] 00:00:00 Test Item Value Reference Range Interpretation Comments HEMOGLOBIN A1c (test code = 42429) 6.9 % URIC [id number] 00:00:00 Test Item Value Reference Range Interpretation Comments URIC ACID (test code = 2233) 9.8 MG/DL URIC [id number] 00:00:00 Test Item Value Reference Range Interpretation Comments URIC ACID (test code = 2233) 9.8 MG/DL CBC W/AUTO [id number] 00:00:00 Test Item Value Reference Range Interpretation Comments WBC (test code = 1001) 7.8 K/UL RBC (test code = 1002) 5.69 M/UL HEMOGLOBIN (test code = 1003) 12.6 G/DL HEMATOCRIT (test code = 1004) 41.1 % MCV (test code = 1005) 72.2 fL MCH (test code = 1006) 22.1 PG MCHC (test code = 1007) 30.7 G/DL RDW (test code = 1038) 14.0 % NEUTROPHILS (test code = 1008) 66.8 % LYMPHOCYTES (test code = 1010) 21.0 % MONOCYTES (test code = 1011) 8.4 % EOSINOPHILS (test code = 1012) 3.4 % BASOPHILS (test code = 1013) 0.4 % PLATELET COUNT (test code = 1015) 322 K/UL CBC W/AUTO [id number] 00:00:00 Test Item Value Reference Range Interpretation Comments WBC (test code = 1001) 7.8 K/UL RBC (test code = 1002) 5.69 M/UL HEMOGLOBIN (test code = 1003) 12.6 G/DL HEMATOCRIT (test code = 1004) 41.1 % MCV (test code = 1005) 72.2 fL MCH (test code = 1006) 22.1 PG MCHC (test code = 1007) 30.7 G/DL RDW (test code = 1038) 14.0 % NEUTROPHILS (test code = 1008) 66.8 % LYMPHOCYTES (test code = 1010) 21.0 % MONOCYTES (test code = 1011) 8.4 % EOSINOPHILS (test code = 1012) 3.4 % BASOPHILS (test code = 1013) 0.4 % PLATELET COUNT (test code = 1015) 322 K/UL COMPREHENSIVE METABOLIC [id number] 00:00:00 Test Item Value Reference Range Interpretation Comments GLUCOSE (test code = 2217) 100 MG/DL BUN (test code = 2208) 13 MG/DL CREATININE (test code = 2214) 1.10 MG/DL eGFR AMER. (test code 91 ML/MIN/1.73 = 33479) eGFR NON- AMER. (test 78 ML/MIN/1.73 code = 96718) CALC BUN/CREAT (test code = 12 RATIO 2235) SODIUM (test code = 2231) 140 MEQ/L POTASSIUM (test code = 2228) 4.2 MEQ/L CHLORIDE (test code = 2215) 97 MEQ/L CARBON DIOXIDE (test code = 32 MEQ/L 2205) CALCIUM (test code = 2209) 9.4 MG/DL PROTEIN, TOTAL (test code = 8.1 G/DL 2228) ALBUMIN (test code = 2201) 4.3 G/DL CALC GLOBULIN (test code = 3.8 G/DL 2239) CALC A/G RATIO (test code = 1.1 RATIO 2233) BILIRUBIN, TOTAL (test code = 0.4 MG/DL 2206) ALKALINE PHOSPHATASE (test 106 U/L code = 2204) AST (test code = 2218) 16 U/L ALT (test code = 2219) 22 U/L CBC W/AUTO [id number] 00:00:00 Test Item Value Reference Range Interpretation Comments WBC (test code = 1001) 7.8 K/UL RBC (test code = 1002) 5.69 M/UL HEMOGLOBIN (test code = 1003) 12.6 G/DL HEMATOCRIT (test code = 1004) 41.1 % MCV (test code = 1005) 72.2 fL MCH (test code = 1006) 22.1 PG MCHC (test code = 1007) 30.7 G/DL RDW (test code = 1038) 14.0 % NEUTROPHILS (test code = 1008) 66.8 % LYMPHOCYTES (test code = 1010) 21.0 % MONOCYTES (test code = 1011) 8.4 % EOSINOPHILS (test code = 1012) 3.4 % BASOPHILS (test code = 1013) 0.4 % PLATELET COUNT (test code = 1015) 322 K/UL CBC W/AUTO [id number] 00:00:00 Test Item Value Reference Range Interpretation Comments WBC (test code = 1001) 7.8 K/UL RBC (test code = 1002) 5.69 M/UL HEMOGLOBIN (test code = 1003) 12.6 G/DL HEMATOCRIT (test code = 1004) 41.1 % MCV (test code = 1005) 72.2 fL MCH (test code = 1006) 22.1 PG MCHC (test code = 1007) 30.7 G/DL RDW (test code = 1038) 14.0 % NEUTROPHILS (test code = 1008) 66.8 % LYMPHOCYTES (test code = 1010) 21.0 % MONOCYTES (test code = 1011) 8.4 % EOSINOPHILS (test code = 1012) 3.4 % BASOPHILS (test code = 1013) 0.4 % PLATELET COUNT (test code = 1015) 322 K/UL CBC W/AUTO [id number] 00:00:00 Test Item Value Reference Range Interpretation Comments WBC (test code = 1001) 7.8 K/UL RBC (test code = 1002) 5.69 M/UL HEMOGLOBIN (test code = 1003) 12.6 G/DL HEMATOCRIT (test code = 1004) 41.1 % MCV (test code = 1005) 72.2 fL MCH (test code = 1006) 22.1 PG MCHC (test code = 1007) 30.7 G/DL RDW (test code = 1038) 14.0 % NEUTROPHILS (test code = 1008) 66.8 % LYMPHOCYTES (test code = 1010) 21.0 % MONOCYTES (test code = 1011) 8.4 % EOSINOPHILS (test code = 1012) 3.4 % BASOPHILS (test code = 1013) 0.4 % PLATELET COUNT (test code = 1015) 322 K/UL COMPREHENSIVE METABOLIC [id number] 00:00:00 Test Item Value Reference Range Interpretation Comments GLUCOSE (test code = 2217) 100 MG/DL BUN (test code = 2208) 13 MG/DL CREATININE (test code = 2214) 1.10 MG/DL eGFR AMER. (test code 91 ML/MIN/1.73 = 40182) eGFR NON- AMER. (test 78 ML/MIN/1.73 code = 22126) CALC BUN/CREAT (test code = 12 RATIO 2235) SODIUM (test code = 2231) 140 MEQ/L POTASSIUM (test code = 2228) 4.2 MEQ/L CHLORIDE (test code = 2215) 97 MEQ/L CARBON DIOXIDE (test code = 32 MEQ/L 2206) CALCIUM (test code = 2209) 9.4 MG/DL PROTEIN, TOTAL (test code = 8.1 G/DL 2228) ALBUMIN (test code = 2201) 4.3 G/DL CALC GLOBULIN (test code = 3.8 G/DL 2240) CALC A/G RATIO (test code = 1.1 RATIO 2234) BILIRUBIN, TOTAL (test code = 0.4 MG/DL 2206) ALKALINE PHOSPHATASE (test 106 U/L code = 2204) AST (test code = 2218) 16 U/L ALT (test code = 2219) 22 U/L COMPREHENSIVE METABOLIC [id number] 00:00:00 Test Item Value Reference Range Interpretation Comments GLUCOSE (test code = 2217) 100 MG/DL BUN (test code = 2208) 13 MG/DL CREATININE (test code = 2214) 1.10 MG/DL eGFR AMER. (test code 91 ML/MIN/1.73 = 49107) eGFR NON- AMER. (test 78 ML/MIN/1.73 code = 28213) CALC BUN/CREAT (test code = 12 RATIO 2235) SODIUM (test code = 2231) 140 MEQ/L POTASSIUM (test code = 2228) 4.2 MEQ/L CHLORIDE (test code = 2215) 97 MEQ/L CARBON DIOXIDE (test code = 32 MEQ/L 2205) CALCIUM (test code = 2209) 9.4 MG/DL PROTEIN, TOTAL (test code = 8.1 G/DL 2228) ALBUMIN (test code = 2201) 4.3 G/DL CALC GLOBULIN (test code = 3.8 G/DL 2240) CALC A/G RATIO (test code = 1.1 RATIO 4) BILIRUBIN, TOTAL (test code = 0.4 MG/DL 2206) ALKALINE PHOSPHATASE (test 106 U/L code = 2204) AST (test code = 2218) 16 U/L ALT (test code = 2219) 22 U/L LIPID [id number] 00:00:00 Test Item Value Reference Range Interpretation Comments CHOLESTEROL (test code = 2210) 263 MG/DL TRIGLYCERIDES (test code = 2232) 413 MG/DL HDL CHOLESTEROL (test code = 43 MG/DL 2220) CALC LDL CHOL (test code = 2237) NOTE MG/DL RISK RATIO LDL/HDL (test code = (NOTE) RATIO 2238) LIPID [id number] 00:00:00 Test Item Value Reference Range Interpretation Comments CHOLESTEROL (test code = 2210) 263 MG/DL TRIGLYCERIDES (test code = 2232) 413 MG/DL HDL CHOLESTEROL (test code = 43 MG/DL 2220) CALC LDL CHOL (test code = 2237) NOTE MG/DL RISK RATIO LDL/HDL (test code = (NOTE) RATIO 2238) HEMOGLOBIN [id number] 00:00:00 Test Item Value Reference Range Interpretation Comments HEMOGLOBIN A1c (test code = 36905) 6.9 % HEMOGLOBIN [id number] 00:00:00 Test Item Value Reference Range Interpretation Comments HEMOGLOBIN A1c (test code = 89205) 6.9 % HEMOGLOBIN [id number] 00:00:00 Test Item Value Reference Range Interpretation Comments HEMOGLOBIN A1c (test code = 21859) 6.9 % URIC [id number] 00:00:00 Test Item Value Reference Range Interpretation Comments URIC ACID (test code = 2233) 9.8 MG/DL URIC [id number] 00:00:00 Test Item Value Reference Range Interpretation Comments URIC ACID (test code = 2233) 9.8 MG/DL LIPID [id number] 00:00:00 Test Item Value Reference Range Interpretation Comments CHOLESTEROL (test code = 2210) 263 MG/DL TRIGLYCERIDES (test code = 2232) 413 MG/DL HDL CHOLESTEROL (test code = 43 MG/DL 2220) CALC LDL CHOL (test code = 2237) NOTE MG/DL RISK RATIO LDL/HDL (test code = (NOTE) RATIO 2238) HEMOGLOBIN [id number] 00:00:00 Test Item Value Reference Range Interpretation Comments HEMOGLOBIN A1c (test code = 84210) 6.9 % HEMOGLOBIN [id number] 00:00:00 Test Item Value Reference Range Interpretation Comments HEMOGLOBIN A1c (test code = 69575) 6.9 % URIC [id number] 00:00:00 Test Item Value Reference Range Interpretation Comments URIC ACID (test code = 2233) 9.2 MG/DL URIC [id number] 00:00:00 Test Item Value Reference Range Interpretation Comments URIC ACID (test code = 2233) 9.2 MG/DL URIC [id number] 00:00:00 Test Item Value Reference Range Interpretation Comments URIC ACID (test code = 2233) 9.2 MG/DL URIC [id number] 00:00:00 Test Item Value Reference Range Interpretation Comments URIC ACID (test code = 2233) 9.2 MG/DL URIC [id number] 00:00:00 Test Item Value Reference Range Interpretation Comments URIC ACID (test code = 2233) 9.2 MG/DL URIC [id number] 00:00:00 Test Item Value Reference Range Interpretation Comments URIC ACID (test code = 2233) 9.2 MG/DL URIC [id number] 00:00:00 Test Item Value Reference Range Interpretation Comments URIC ACID (test code = 2233) 9.2 MG/DL URIC [id number] 00:00:00 Test Item Value Reference Range Interpretation Comments URIC ACID (test code = 2233) 9.2 MG/DL URIC [id number] 00:00:00 Test Item Value Reference Range Interpretation Comments URIC ACID (test code = 2233) 9.2 MG/DL URIC [id number] 00:00:00 Test Item Value Reference Range Interpretation Comments URIC ACID (test code = 2233) 9.2 MG/DL URIC [id number] 00:00:00 Test Item Value Reference Range Interpretation Comments URIC ACID (test code = 2233) 9.2 MG/DL URIC [id number] 00:00:00 Test Item Value Reference Range Interpretation Comments URIC ACID (test code = 2233) 9.2 MG/DL URIC [id number] 00:00:00 Test Item Value Reference Range Interpretation Comments URIC ACID (test code = 2233) 9.2 MG/DL HEMOGLOBIN [id number] 00:00:00 Test Item Value Reference Range Interpretation Comments HEMOGLOBIN A1c (test code = 39207) 6.8 % HEMOGLOBIN [id number] 00:00:00 Test Item Value Reference Range Interpretation Comments HEMOGLOBIN A1c (test code = 68563) 6.8 % HEMOGLOBIN [id number] 00:00:00 Test Item Value Reference Range Interpretation Comments HEMOGLOBIN A1c (test code = 79841) 6.8 % LIPID [id number] 00:00:00 Test Item Value Reference Range Interpretation Comments CHOLESTEROL (test code = 2210) 233 MG/DL TRIGLYCERIDES (test code = 2232) 438 MG/DL HDL CHOLESTEROL (test code = 39 MG/DL 2220) CALC LDL CHOL (test code = 2237) NOTE MG/DL RISK RATIO LDL/HDL (test code = (NOTE) RATIO 2238) LIPID [id number] 00:00:00 Test Item Value Reference Range Interpretation Comments CHOLESTEROL (test code = 2210) 233 MG/DL TRIGLYCERIDES (test code = 2232) 438 MG/DL HDL CHOLESTEROL (test code = 39 MG/DL 2220) CALC LDL CHOL (test code = 2237) NOTE MG/DL RISK RATIO LDL/HDL (test code = (NOTE) RATIO 2238) HEMOGLOBIN [id number] 00:00:00 Test Item Value Reference Range Interpretation Comments HEMOGLOBIN A1c (test code = 84055) 6.8 % HEMOGLOBIN [id number] 00:00:00 Test Item Value Reference Range Interpretation Comments HEMOGLOBIN A1c (test code = 29764) 6.8 % HEMOGLOBIN [id number] 00:00:00 Test Item Value Reference Range Interpretation Comments HEMOGLOBIN A1c (test code = 39717) 6.8 % LIPID [id number] 00:00:00 Test Item Value Reference Range Interpretation Comments CHOLESTEROL (test code = 2210) 233 MG/DL TRIGLYCERIDES (test code = 2232) 438 MG/DL HDL CHOLESTEROL (test code = 39 MG/DL 2220) CALC LDL CHOL (test code = 2237) NOTE MG/DL RISK RATIO LDL/HDL (test code = (NOTE) RATIO 2238) LIPID [id number] 00:00:00 Test Item Value Reference Range Interpretation Comments CHOLESTEROL (test code = 2210) 233 MG/DL TRIGLYCERIDES (test code = 2232) 438 MG/DL HDL CHOLESTEROL (test code = 39 MG/DL 2220) CALC LDL CHOL (test code = 2237) NOTE MG/DL RISK RATIO LDL/HDL (test code = (NOTE) RATIO 2238) HEMOGLOBIN [id number] 00:00:00 Test Item Value Reference Range Interpretation Comments HEMOGLOBIN A1c (test code = 64979) 6.8 % HEMOGLOBIN [id number] 00:00:00 Test Item Value Reference Range Interpretation Comments HEMOGLOBIN A1c (test code = 27202) 6.8 % LIPID [id number] 00:00:00 Test Item Value Reference Range Interpretation Comments CHOLESTEROL (test code = 2210) 233 MG/DL TRIGLYCERIDES (test code = 2232) 438 MG/DL HDL CHOLESTEROL (test code = 39 MG/DL 2220) CALC LDL CHOL (test code = 2237) NOTE MG/DL RISK RATIO LDL/HDL (test code = (NOTE) RATIO 2238) HEMOGLOBIN [id number] 00:00:00 Test Item Value Reference Range Interpretation Comments HEMOGLOBIN A1c (test code = 62126) 6.8 % HEMOGLOBIN [id number] 00:00:00 Test Item Value Reference Range Interpretation Comments HEMOGLOBIN A1c (test code = 74338) 6.8 % LIPID [id number] 00:00:00 Test Item Value Reference Range Interpretation Comments CHOLESTEROL (test code = 2210) 233 MG/DL TRIGLYCERIDES (test code = 2232) 438 MG/DL HDL CHOLESTEROL (test code = 39 MG/DL 2220) CALC LDL CHOL (test code = 2237) NOTE MG/DL RISK RATIO LDL/HDL (test code = (NOTE) RATIO 2238) HEMOGLOBIN [id number] 00:00:00 Test Item Value Reference Range Interpretation Comments HEMOGLOBIN A1c (test code = 38742) 6.8 % HEMOGLOBIN [id number] 00:00:00 Test Item Value Reference Range Interpretation Comments HEMOGLOBIN A1c (test code = 11771) 6.8 % HEMOGLOBIN [id number] 00:00:00 Test Item Value Reference Range Interpretation Comments HEMOGLOBIN A1c (test code = 36446) 6.8 % LIPID [id number] 00:00:00 Test Item Value Reference Range Interpretation Comments CHOLESTEROL (test code = 2210) 233 MG/DL TRIGLYCERIDES (test code = 2232) 438 MG/DL HDL CHOLESTEROL (test code = 39 MG/DL 2220) CALC LDL CHOL (test code = 2237) NOTE MG/DL RISK RATIO LDL/HDL (test code = (NOTE) RATIO 2238) LIPID [id number] 00:00:00 Test Item Value Reference Range Interpretation Comments CHOLESTEROL (test code = 2210) 233 MG/DL TRIGLYCERIDES (test code = 2232) 438 MG/DL HDL CHOLESTEROL (test code = 39 MG/DL 2220) CALC LDL CHOL (test code = 2237) NOTE MG/DL RISK RATIO LDL/HDL (test code = (NOTE) RATIO 2238) HEMOGLOBIN [id number] 00:00:00 Test Item Value Reference Range Interpretation Comments HEMOGLOBIN A1c (test code = 79145) 6.8 % HEMOGLOBIN [id number] 00:00:00 Test Item Value Reference Range Interpretation Comments HEMOGLOBIN A1c (test code = 74375) 6.8 % HEMOGLOBIN [id number] 00:00:00 Test Item Value Reference Range Interpretation Comments HEMOGLOBIN A1c (test code = 98198) 6.8 % LIPID [id number] 00:00:00 Test Item Value Reference Range Interpretation Comments CHOLESTEROL (test code = 2210) 233 MG/DL TRIGLYCERIDES (test code = 2232) 438 MG/DL HDL CHOLESTEROL (test code = 39 MG/DL 2220) CALC LDL CHOL (test code = 2237) NOTE MG/DL RISK RATIO LDL/HDL (test code = (NOTE) RATIO 2238) LIPID [id number] 00:00:00 Test Item Value Reference Range Interpretation Comments CHOLESTEROL (test code = 2210) 233 MG/DL TRIGLYCERIDES (test code = 2232) 438 MG/DL HDL CHOLESTEROL (test code = 39 MG/DL 2220) CALC LDL CHOL (test code = 2237) NOTE MG/DL RISK RATIO LDL/HDL (test code = (NOTE) RATIO 2238) HEMOGLOBIN [id number] 00:00:00 Test Item Value Reference Range Interpretation Comments HEMOGLOBIN A1c (test code = 22943) 6.8 % HEMOGLOBIN [id number] 00:00:00 Test Item Value Reference Range Interpretation Comments HEMOGLOBIN A1c (test code = 07049) 6.8 % LIPID [id number] 00:00:00 Test Item Value Reference Range Interpretation Comments CHOLESTEROL (test code = 2210) 233 MG/DL TRIGLYCERIDES (test code = 2232) 438 MG/DL HDL CHOLESTEROL (test code = 39 MG/DL 2220) CALC LDL CHOL (test code = 2237) NOTE MG/DL RISK RATIO LDL/HDL (test code = (NOTE) RATIO 2238) HEMOGLOBIN [id number] 00:00:00 Test Item Value Reference Range Interpretation Comments HEMOGLOBIN A1c (test code = 30625) 6.8 % HEMOGLOBIN [id number] 00:00:00 Test Item Value Reference Range Interpretation Comments HEMOGLOBIN A1c (test code = 13900) 6.8 % HEMOGLOBIN [id number] 00:00:00 Test Item Value Reference Range Interpretation Comments HEMOGLOBIN A1c (test code = 01079) 6.8 % LIPID [id number] 00:00:00 Test Item Value Reference Range Interpretation Comments CHOLESTEROL (test code = 2210) 233 MG/DL TRIGLYCERIDES (test code = 2232) 438 MG/DL HDL CHOLESTEROL (test code = 39 MG/DL 2220) CALC LDL CHOL (test code = 2237) NOTE MG/DL RISK RATIO LDL/HDL (test code = (NOTE) RATIO 2238) LIPID [id number] 00:00:00 Test Item Value Reference Range Interpretation Comments CHOLESTEROL (test code = 2210) 233 MG/DL TRIGLYCERIDES (test code = 2232) 438 MG/DL HDL CHOLESTEROL (test code = 39 MG/DL 2220) CALC LDL CHOL (test code = 2237) NOTE MG/DL RISK RATIO LDL/HDL (test code = (NOTE) RATIO 2238) LIPID [id number] 00:00:00 Test Item Value Reference Range Interpretation Comments CHOLESTEROL (test code = 2210) 240 MG/DL TRIGLYCERIDES (test code = 2232) 344 MG/DL HDL CHOLESTEROL (test code = 2220) 49 MG/DL CALC LDL CHOL (test code = 2237) 122 MG/DL RISK RATIO LDL/HDL (test code = 2.49 RATIO 2238) COMPREHENSIVE METABOLIC [id number] 00:00:00 Test Item Value Reference Range Interpretation Comments GLUCOSE (test code = 2217) 115 MG/DL BUN (test code = 2208) 14 MG/DL CREATININE (test code = 2214) 1.26 MG/DL eGFR AMER. (test code 78 ML/MIN/1.73 = 79083) eGFR NON- AMER. (test 67 ML/MIN/1.73 code = 96174) CALC BUN/CREAT (test code = 11 RATIO 2235) SODIUM (test code = 2231) 139 MEQ/L POTASSIUM (test code = 2228) 4.4 MEQ/L CHLORIDE (test code = 2215) 93 MEQ/L CARBON DIOXIDE (test code = 30 MEQ/L 2205) CALCIUM (test code = 2209) 9.7 MG/DL PROTEIN, TOTAL (test code = 7.9 G/DL 2228) ALBUMIN (test code = 2201) 4.3 G/DL CALC GLOBULIN (test code = 3.6 G/DL 2240) CALC A/G RATIO (test code = 1.2 RATIO 2234) BILIRUBIN, TOTAL (test code = 0.6 MG/DL 2206) ALKALINE PHOSPHATASE (test 98 U/L code = 2204) AST (test code = 2218) 21 U/L ALT (test code = 2219) 20 U/L COMPREHENSIVE METABOLIC [id number] 00:00:00 Test Item Value Reference Range Interpretation Comments GLUCOSE (test code = 2217) 115 MG/DL BUN (test code = 2208) 14 MG/DL CREATININE (test code = 2214) 1.26 MG/DL eGFR AMER. (test code 78 ML/MIN/1.73 = 74921) eGFR NON- AMER. (test 67 ML/MIN/1.73 code = 79552) CALC BUN/CREAT (test code = 11 RATIO 2235) SODIUM (test code = 2231) 139 MEQ/L POTASSIUM (test code = 2228) 4.4 MEQ/L CHLORIDE (test code = 2215) 93 MEQ/L CARBON DIOXIDE (test code = 30 MEQ/L 2205) CALCIUM (test code = 2209) 9.7 MG/DL PROTEIN, TOTAL (test code = 7.9 G/DL 2228) ALBUMIN (test code = 2201) 4.3 G/DL CALC GLOBULIN (test code = 3.6 G/DL 2239) CALC A/G RATIO (test code = 1.2 RATIO 2233) BILIRUBIN, TOTAL (test code = 0.6 MG/DL 2206) ALKALINE PHOSPHATASE (test 98 U/L code = 2204) AST (test code = 2218) 21 U/L ALT (test code = 2219) 20 U/L THYROID II PROFILE (T3U, T4, T7, TSH)2016-09-22 00:00:00 Test Item Value Reference Range Interpretation Comments T3 UPTAKE (test code = 2817) 30.0 % T4 (THYROXINE) (test code = 2819) 5.4 UG/DL CALCULATED T7 (FTI) (test code = 1.62 2820) TSH (test code = 2821) 2.4 UIU/ML THYROID II PROFILE (T3U, T4, T7, TSH)2016-09-22 00:00:00 Test Item Value Reference Range Interpretation Comments T3 UPTAKE (test code = 2817) 30.0 % T4 (THYROXINE) (test code = 2819) 5.4 UG/DL CALCULATED T7 (FTI) (test code = 1.62 2820) TSH (test code = 2821) 2.4 UIU/ML LIPID [id number] 00:00:00 Test Item Value Reference Range Interpretation Comments CHOLESTEROL (test code = 2210) 240 MG/DL TRIGLYCERIDES (test code = 2232) 344 MG/DL HDL CHOLESTEROL (test code = 2220) 49 MG/DL CALC LDL CHOL (test code = 2237) 122 MG/DL RISK RATIO LDL/HDL (test code = 2.49 RATIO 2238) LIPID [id number] 00:00:00 Test Item Value Reference Range Interpretation Comments CHOLESTEROL (test code = 2210) 240 MG/DL TRIGLYCERIDES (test code = 2232) 344 MG/DL HDL CHOLESTEROL (test code = 2220) 49 MG/DL CALC LDL CHOL (test code = 2237) 122 MG/DL RISK RATIO LDL/HDL (test code = 2.49 RATIO 2238) COMPREHENSIVE METABOLIC [id number] 00:00:00 Test Item Value Reference Range Interpretation Comments GLUCOSE (test code = 2217) 115 MG/DL BUN (test code = 2208) 14 MG/DL CREATININE (test code = 2214) 1.26 MG/DL eGFR AMER. (test code 78 ML/MIN/1.73 = 47166) eGFR NON- AMER. (test 67 ML/MIN/1.73 code = 48956) CALC BUN/CREAT (test code = 11 RATIO 2235) SODIUM (test code = 2231) 139 MEQ/L POTASSIUM (test code = 2228) 4.4 MEQ/L CHLORIDE (test code = 2215) 93 MEQ/L CARBON DIOXIDE (test code = 30 MEQ/L 2205) CALCIUM (test code = 2209) 9.7 MG/DL PROTEIN, TOTAL (test code = 7.9 G/DL 2228) ALBUMIN (test code = 2201) 4.3 G/DL CALC GLOBULIN (test code = 3.6 G/DL 2240) CALC A/G RATIO (test code = 1.2 RATIO 2234) BILIRUBIN, TOTAL (test code = 0.6 MG/DL 2206) ALKALINE PHOSPHATASE (test 98 U/L code = 2204) AST (test code = 2218) 21 U/L ALT (test code = 2219) 20 U/L COMPREHENSIVE METABOLIC [id number] 00:00:00 Test Item Value Reference Range Interpretation Comments GLUCOSE (test code = 2217) 115 MG/DL BUN (test code = 2208) 14 MG/DL CREATININE (test code = 2214) 1.26 MG/DL eGFR AMER. (test code 78 ML/MIN/1.73 = 40163) eGFR NON- AMER. (test 67 ML/MIN/1.73 code = 15110) CALC BUN/CREAT (test code = 11 RATIO 2235) SODIUM (test code = 2231) 139 MEQ/L POTASSIUM (test code = 2228) 4.4 MEQ/L CHLORIDE (test code = 2215) 93 MEQ/L CARBON DIOXIDE (test code = 30 MEQ/L 2205) CALCIUM (test code = 2209) 9.7 MG/DL PROTEIN, TOTAL (test code = 7.9 G/DL 2228) ALBUMIN (test code = 220) 4.3 G/DL CALC GLOBULIN (test code = 3.6 G/DL 2239) CALC A/G RATIO (test code = 1.2 RATIO 2233) BILIRUBIN, TOTAL (test code = 0.6 MG/DL 2206) ALKALINE PHOSPHATASE (test 98 U/L code = 2204) AST (test code = 2218) 21 U/L ALT (test code = 2219) 20 U/L THYROID II PROFILE (T3U, T4, T7, TSH)2016-09-22 00:00:00 Test Item Value Reference Range Interpretation Comments T3 UPTAKE (test code = 2817) 30.0 % T4 (THYROXINE) (test code = 2819) 5.4 UG/DL CALCULATED T7 (FTI) (test code = 1.62 2820) TSH (test code = 2821) 2.4 UIU/ML THYROID II PROFILE (T3U, T4, T7, TSH)2016-09-22 00:00:00 Test Item Value Reference Range Interpretation Comments T3 UPTAKE (test code = 2817) 30.0 % T4 (THYROXINE) (test code = 2819) 5.4 UG/DL CALCULATED T7 (FTI) (test code = 1.62 2820) TSH (test code = 2821) 2.4 UIU/ML LIPID [id number] 00:00:00 Test Item Value Reference Range Interpretation Comments CHOLESTEROL (test code = 2210) 240 MG/DL TRIGLYCERIDES (test code = 2232) 344 MG/DL HDL CHOLESTEROL (test code = 2220) 49 MG/DL CALC LDL CHOL (test code = 2237) 122 MG/DL RISK RATIO LDL/HDL (test code = 2.49 RATIO 2237) LIPID [id number] 00:00:00 Test Item Value Reference Range Interpretation Comments CHOLESTEROL (test code = 2210) 240 MG/DL TRIGLYCERIDES (test code = 2232) 344 MG/DL HDL CHOLESTEROL (test code = 2220) 49 MG/DL CALC LDL CHOL (test code = 2237) 122 MG/DL RISK RATIO LDL/HDL (test code = 2.49 RATIO 2238) COMPREHENSIVE METABOLIC [id number] 00:00:00 Test Item Value Reference Range Interpretation Comments GLUCOSE (test code = 2217) 115 MG/DL BUN (test code = 2208) 14 MG/DL CREATININE (test code = 2214) 1.26 MG/DL eGFR AMER. (test code 78 ML/MIN/1.73 = 30660) eGFR NON- AMER. (test 67 ML/MIN/1.73 code = 04198) CALC BUN/CREAT (test code = 11 RATIO 2235) SODIUM (test code = 2231) 139 MEQ/L POTASSIUM (test code = 2228) 4.4 MEQ/L CHLORIDE (test code = 2215) 93 MEQ/L CARBON DIOXIDE (test code = 30 MEQ/L 2205) CALCIUM (test code = 2209) 9.7 MG/DL PROTEIN, TOTAL (test code = 7.9 G/DL 2228) ALBUMIN (test code = 2201) 4.3 G/DL CALC GLOBULIN (test code = 3.6 G/DL 2240) CALC A/G RATIO (test code = 1.2 RATIO 2234) BILIRUBIN, TOTAL (test code = 0.6 MG/DL 2206) ALKALINE PHOSPHATASE (test 98 U/L code = 2204) AST (test code = 2218) 21 U/L ALT (test code = 2219) 20 U/L THYROID II PROFILE (T3U, T4, T7, TSH)2016-09-22 00:00:00 Test Item Value Reference Range Interpretation Comments T3 UPTAKE (test code = 281) 30.0 % T4 (THYROXINE) (test code = 2819) 5.4 UG/DL CALCULATED T7 (FTI) (test code = 1.62 6990) TSH (test code = 2821) 2.4 UIU/ML LIPID [id number] 00:00:00 Test Item Value Reference Range Interpretation Comments CHOLESTEROL (test code = 2210) 240 MG/DL TRIGLYCERIDES (test code = 2232) 344 MG/DL HDL CHOLESTEROL (test code = 2220) 49 MG/DL CALC LDL CHOL (test code = 2237) 122 MG/DL RISK RATIO LDL/HDL (test code = 2.49 RATIO 2238) COMPREHENSIVE METABOLIC [id number] 00:00:00 Test Item Value Reference Range Interpretation Comments GLUCOSE (test code = 2217) 115 MG/DL BUN (test code = 2208) 14 MG/DL CREATININE (test code = 2214) 1.26 MG/DL eGFR AMER. (test code 78 ML/MIN/1.73 = 90760) eGFR NON- AMER. (test 67 ML/MIN/1.73 code = 42757) CALC BUN/CREAT (test code = 11 RATIO 2235) SODIUM (test code = 2231) 139 MEQ/L POTASSIUM (test code = 2228) 4.4 MEQ/L CHLORIDE (test code = 2215) 93 MEQ/L CARBON DIOXIDE (test code = 30 MEQ/L 2205) CALCIUM (test code = 2209) 9.7 MG/DL PROTEIN, TOTAL (test code = 7.9 G/DL 2228) ALBUMIN (test code = 2201) 4.3 G/DL CALC GLOBULIN (test code = 3.6 G/DL 2239) CALC A/G RATIO (test code = 1.2 RATIO 2233) BILIRUBIN, TOTAL (test code = 0.6 MG/DL 2206) ALKALINE PHOSPHATASE (test 98 U/L code = 2204) AST (test code = 2218) 21 U/L ALT (test code = 2219) 20 U/L THYROID II PROFILE (T3U, T4, T7, TSH)2016-09-22 00:00:00 Test Item Value Reference Range Interpretation Comments T3 UPTAKE (test code = 2817) 30.0 % T4 (THYROXINE) (test code = 2819) 5.4 UG/DL CALCULATED T7 (FTI) (test code = 1.62 5310) TSH (test code = 2821) 2.4 UIU/ML LIPID [id number] 00:00:00 Test Item Value Reference Range Interpretation Comments CHOLESTEROL (test code = 2210) 240 MG/DL TRIGLYCERIDES (test code = 2232) 344 MG/DL HDL CHOLESTEROL (test code = 2220) 49 MG/DL CALC LDL CHOL (test code = 2237) 122 MG/DL RISK RATIO LDL/HDL (test code = 2.49 RATIO 2238) COMPREHENSIVE METABOLIC [id number] 00:00:00 Test Item Value Reference Range Interpretation Comments GLUCOSE (test code = 2217) 115 MG/DL BUN (test code = 2208) 14 MG/DL CREATININE (test code = 2214) 1.26 MG/DL eGFR AMER. (test code 78 ML/MIN/1.73 = 75260) eGFR NON- AMER. (test 67 ML/MIN/1.73 code = 67962) CALC BUN/CREAT (test code = 11 RATIO 2235) SODIUM (test code = 2231) 139 MEQ/L POTASSIUM (test code = 2228) 4.4 MEQ/L CHLORIDE (test code = 2215) 93 MEQ/L CARBON DIOXIDE (test code = 30 MEQ/L 220) CALCIUM (test code = 2209) 9.7 MG/DL PROTEIN, TOTAL (test code = 7.9 G/DL 2228) ALBUMIN (test code = 2201) 4.3 G/DL CALC GLOBULIN (test code = 3.6 G/DL 0) CALC A/G RATIO (test code = 1.2 RATIO 2233) BILIRUBIN, TOTAL (test code = 0.6 MG/DL 2206) ALKALINE PHOSPHATASE (test 98 U/L code = 2204) AST (test code = 2218) 21 U/L ALT (test code = 2219) 20 U/L COMPREHENSIVE METABOLIC [id number] 00:00:00 Test Item Value Reference Range Interpretation Comments GLUCOSE (test code = 2217) 115 MG/DL BUN (test code = 2208) 14 MG/DL CREATININE (test code = 2214) 1.26 MG/DL eGFR AMER. (test code 78 ML/MIN/1.73 = 25319) eGFR NON- AMER. (test 67 ML/MIN/1.73 code = 74788) CALC BUN/CREAT (test code = 11 RATIO 2235) SODIUM (test code = 2231) 139 MEQ/L POTASSIUM (test code = 2228) 4.4 MEQ/L CHLORIDE (test code = 2215) 93 MEQ/L CARBON DIOXIDE (test code = 30 MEQ/L 220) CALCIUM (test code = 2209) 9.7 MG/DL PROTEIN, TOTAL (test code = 7.9 G/DL 2228) ALBUMIN (test code = 2201) 4.3 G/DL CALC GLOBULIN (test code = 3.6 G/DL 2240) CALC A/G RATIO (test code = 1.2 RATIO 2234) BILIRUBIN, TOTAL (test code = 0.6 MG/DL 2206) ALKALINE PHOSPHATASE (test 98 U/L code = 2204) AST (test code = 2218) 21 U/L ALT (test code = 2219) 20 U/L THYROID II PROFILE (T3U, T4, T7, TSH)2016-09-22 00:00:00 Test Item Value Reference Range Interpretation Comments T3 UPTAKE (test code = 2817) 30.0 % T4 (THYROXINE) (test code = 2819) 5.4 UG/DL CALCULATED T7 (FTI) (test code = 1.62 2820) TSH (test code = 2821) 2.4 UIU/ML THYROID II PROFILE (T3U, T4, T7, TSH)2016-09-22 00:00:00 Test Item Value Reference Range Interpretation Comments T3 UPTAKE (test code = 2817) 30.0 % T4 (THYROXINE) (test code = 2819) 5.4 UG/DL CALCULATED T7 (FTI) (test code = 1.62 2820) TSH (test code = 2821) 2.4 UIU/ML LIPID [id number] 00:00:00 Test Item Value Reference Range Interpretation Comments CHOLESTEROL (test code = 2210) 240 MG/DL TRIGLYCERIDES (test code = 2232) 344 MG/DL HDL CHOLESTEROL (test code = 2220) 49 MG/DL CALC LDL CHOL (test code = 2237) 122 MG/DL RISK RATIO LDL/HDL (test code = 2.49 RATIO 2238) LIPID [id number] 00:00:00 Test Item Value Reference Range Interpretation Comments CHOLESTEROL (test code = 2210) 240 MG/DL TRIGLYCERIDES (test code = 2232) 344 MG/DL HDL CHOLESTEROL (test code = 2220) 49 MG/DL CALC LDL CHOL (test code = 2237) 122 MG/DL RISK RATIO LDL/HDL (test code = 2.49 RATIO 2238) COMPREHENSIVE METABOLIC [id number] 00:00:00 Test Item Value Reference Range Interpretation Comments GLUCOSE (test code = 2217) 115 MG/DL BUN (test code = 2208) 14 MG/DL CREATININE (test code = 2214) 1.26 MG/DL eGFR AMER. (test code 78 ML/MIN/1.73 = 38507) eGFR NON- AMER. (test 67 ML/MIN/1.73 code = 99312) CALC BUN/CREAT (test code = 11 RATIO 2235) SODIUM (test code = 2231) 139 MEQ/L POTASSIUM (test code = 2228) 4.4 MEQ/L CHLORIDE (test code = 2215) 93 MEQ/L CARBON DIOXIDE (test code = 30 MEQ/L 220) CALCIUM (test code = 2209) 9.7 MG/DL PROTEIN, TOTAL (test code = 7.9 G/DL 2228) ALBUMIN (test code = 2201) 4.3 G/DL CALC GLOBULIN (test code = 3.6 G/DL 2240) CALC A/G RATIO (test code = 1.2 RATIO 223) BILIRUBIN, TOTAL (test code = 0.6 MG/DL 2206) ALKALINE PHOSPHATASE (test 98 U/L code = 2204) AST (test code = 2218) 21 U/L ALT (test code = 2219) 20 U/L COMPREHENSIVE METABOLIC [id number] 00:00:00 Test Item Value Reference Range Interpretation Comments GLUCOSE (test code = 2217) 115 MG/DL BUN (test code = 2208) 14 MG/DL CREATININE (test code = 2214) 1.26 MG/DL eGFR AMER. (test code 78 ML/MIN/1.73 = 93240) eGFR NON- AMER. (test 67 ML/MIN/1.73 code = 44791) CALC BUN/CREAT (test code = 11 RATIO 2235) SODIUM (test code = 2231) 139 MEQ/L POTASSIUM (test code = 2228) 4.4 MEQ/L CHLORIDE (test code = 2215) 93 MEQ/L CARBON DIOXIDE (test code = 30 MEQ/L 2206) CALCIUM (test code = 2209) 9.7 MG/DL PROTEIN, TOTAL (test code = 7.9 G/DL 2228) ALBUMIN (test code = 2201) 4.3 G/DL CALC GLOBULIN (test code = 3.6 G/DL 2240) CALC A/G RATIO (test code = 1.2 RATIO 2234) BILIRUBIN, TOTAL (test code = 0.6 MG/DL 2206) ALKALINE PHOSPHATASE (test 98 U/L code = 2204) AST (test code = 2218) 21 U/L ALT (test code = 2219) 20 U/L THYROID II PROFILE (T3U, T4, T7, TSH)2016-09-22 00:00:00 Test Item Value Reference Range Interpretation Comments T3 UPTAKE (test code = 2817) 30.0 % T4 (THYROXINE) (test code = 2819) 5.4 UG/DL CALCULATED T7 (FTI) (test code = 1.62 2820) TSH (test code = 2821) 2.4 UIU/ML THYROID II PROFILE (T3U, T4, T7, TSH)2016-09-22 00:00:00 Test Item Value Reference Range Interpretation Comments T3 UPTAKE (test code = 2817) 30.0 % T4 (THYROXINE) (test code = 2819) 5.4 UG/DL CALCULATED T7 (FTI) (test code = 1.62 2820) TSH (test code = 2821) 2.4 UIU/ML LIPID [id number] 00:00:00 Test Item Value Reference Range Interpretation Comments CHOLESTEROL (test code = 2210) 240 MG/DL TRIGLYCERIDES (test code = 2232) 344 MG/DL HDL CHOLESTEROL (test code = 2220) 49 MG/DL CALC LDL CHOL (test code = 2237) 122 MG/DL RISK RATIO LDL/HDL (test code = 2.49 RATIO 2238) LIPID [id number] 00:00:00 Test Item Value Reference Range Interpretation Comments CHOLESTEROL (test code = 2210) 240 MG/DL TRIGLYCERIDES (test code = 2232) 344 MG/DL HDL CHOLESTEROL (test code = 2220) 49 MG/DL CALC LDL CHOL (test code = 2237) 122 MG/DL RISK RATIO LDL/HDL (test code = 2.49 RATIO 2238) COMPREHENSIVE METABOLIC [id number] 00:00:00 Test Item Value Reference Range Interpretation Comments GLUCOSE (test code = 2217) 115 MG/DL BUN (test code = 2208) 14 MG/DL CREATININE (test code = 2214) 1.26 MG/DL eGFR AMER. (test code 78 ML/MIN/1.73 = 89089) eGFR NON- AMER. (test 67 ML/MIN/1.73 code = 16675) CALC BUN/CREAT (test code = 11 RATIO 2235) SODIUM (test code = 2231) 139 MEQ/L POTASSIUM (test code = 2228) 4.4 MEQ/L CHLORIDE (test code = 2215) 93 MEQ/L CARBON DIOXIDE (test code = 30 MEQ/L 2206) CALCIUM (test code = 2209) 9.7 MG/DL PROTEIN, TOTAL (test code = 7.9 G/DL 222) ALBUMIN (test code = 2201) 4.3 G/DL CALC GLOBULIN (test code = 3.6 G/DL 2240) CALC A/G RATIO (test code = 1.2 RATIO 2234) BILIRUBIN, TOTAL (test code = 0.6 MG/DL 2206) ALKALINE PHOSPHATASE (test 98 U/L code = 220) AST (test code = 2218) 21 U/L ALT (test code = 2219) 20 U/L COMPREHENSIVE METABOLIC [id number] 00:00:00 Test Item Value Reference Range Interpretation Comments GLUCOSE (test code = 2217) 115 MG/DL BUN (test code = 2208) 14 MG/DL CREATININE (test code = 2214) 1.26 MG/DL eGFR AMER. (test code 78 ML/MIN/1.73 = 32427) eGFR NON- AMER. (test 67 ML/MIN/1.73 code = 56658) CALC BUN/CREAT (test code = 11 RATIO 2235) SODIUM (test code = 2231) 139 MEQ/L POTASSIUM (test code = 2228) 4.4 MEQ/L CHLORIDE (test code = 2215) 93 MEQ/L CARBON DIOXIDE (test code = 30 MEQ/L 2206) CALCIUM (test code = 2209) 9.7 MG/DL PROTEIN, TOTAL (test code = 7.9 G/DL 222) ALBUMIN (test code = 2201) 4.3 G/DL CALC GLOBULIN (test code = 3.6 G/DL 2240) CALC A/G RATIO (test code = 1.2 RATIO 2234) BILIRUBIN, TOTAL (test code = 0.6 MG/DL 2206) ALKALINE PHOSPHATASE (test 98 U/L code = 2204) AST (test code = 2218) 21 U/L ALT (test code = 2219) 20 U/L COMPREHENSIVE METABOLIC [id number] 00:00:00 Test Item Value Reference Range Interpretation Comments GLUCOSE (test code = 2217) 115 MG/DL BUN (test code = 2208) 14 MG/DL CREATININE (test code = 2214) 1.26 MG/DL eGFR AMER. (test code 78 ML/MIN/1.73 = 80276) eGFR NON- AMER. (test 67 ML/MIN/1.73 code = 20424) CALC BUN/CREAT (test code = 11 RATIO 2235) SODIUM (test code = 2231) 139 MEQ/L POTASSIUM (test code = 2228) 4.4 MEQ/L CHLORIDE (test code = 2215) 93 MEQ/L CARBON DIOXIDE (test code = 30 MEQ/L 2205) CALCIUM (test code = 2209) 9.7 MG/DL PROTEIN, TOTAL (test code = 7.9 G/DL 2228) ALBUMIN (test code = 2201) 4.3 G/DL CALC GLOBULIN (test code = 3.6 G/DL 2240) CALC A/G RATIO (test code = 1.2 RATIO 4) BILIRUBIN, TOTAL (test code = 0.6 MG/DL 2206) ALKALINE PHOSPHATASE (test 98 U/L code = 2204) AST (test code = 2218) 21 U/L ALT (test code = 2219) 20 U/L THYROID II PROFILE (T3U, T4, T7, TSH)2016-09-22 00:00:00 Test Item Value Reference Range Interpretation Comments T3 UPTAKE (test code = 2817) 30.0 % T4 (THYROXINE) (test code = 2819) 5.4 UG/DL CALCULATED T7 (FTI) (test code = 1.62 2820) TSH (test code = 2821) 2.4 UIU/ML THYROID II PROFILE (T3U, T4, T7, TSH)2016-09-22 00:00:00 Test Item Value Reference Range Interpretation Comments T3 UPTAKE (test code = 2817) 30.0 % T4 (THYROXINE) (test code = 2819) 5.4 UG/DL CALCULATED T7 (FTI) (test code = 1.62 2820) TSH (test code = 2821) 2.4 UIU/ML LIPID [id number] 00:00:00 Test Item Value Reference Range Interpretation Comments CHOLESTEROL (test code = 2210) 240 MG/DL TRIGLYCERIDES (test code = 2232) 344 MG/DL HDL CHOLESTEROL (test code = 2220) 49 MG/DL CALC LDL CHOL (test code = 2237) 122 MG/DL RISK RATIO LDL/HDL (test code = 2.49 RATIO 2238) LIPID [id number] 00:00:00 Test Item Value Reference Range Interpretation Comments CHOLESTEROL (test code = 2210) 240 MG/DL TRIGLYCERIDES (test code = 2232) 344 MG/DL HDL CHOLESTEROL (test code = 2220) 49 MG/DL CALC LDL CHOL (test code = 2237) 122 MG/DL RISK RATIO LDL/HDL (test code = 2.49 RATIO 2238) THYROID II PROFILE (T3U, T4, T7, TSH)2016-09-22 00:00:00 Test Item Value Reference Range Interpretation Comments T3 UPTAKE (test code = 2817) 30.0 % T4 (THYROXINE) (test code = 2819) 5.4 UG/DL CALCULATED T7 (FTI) (test code = 1.62 2820) TSH (test code = 2821) 2.4 UIU/ML HEMOGLOBIN [id number] 00:00:00 Test Item Value Reference Range Interpretation Comments HEMOGLOBIN A1c (test code = 65293) 7.0 % HEMOGLOBIN [id number] 00:00:00 Test Item Value Reference Range Interpretation Comments HEMOGLOBIN A1c (test code = 82275) 7.0 % HEMOGLOBIN [id number] 00:00:00 Test Item Value Reference Range Interpretation Comments HEMOGLOBIN A1c (test code = 17389) 7.0 % HEMOGLOBIN [id number] 00:00:00 Test Item Value Reference Range Interpretation Comments HEMOGLOBIN A1c (test code = 81505) 7.0 % HEMOGLOBIN [id number] 00:00:00 Test Item Value Reference Range Interpretation Comments HEMOGLOBIN A1c (test code = 30558) 7.0 % HEMOGLOBIN [id number] 00:00:00 Test Item Value Reference Range Interpretation Comments HEMOGLOBIN A1c (test code = 54380) 7.0 % HEMOGLOBIN [id number] 00:00:00 Test Item Value Reference Range Interpretation Comments HEMOGLOBIN A1c (test code = 89692) 7.0 % HEMOGLOBIN [id number] 00:00:00 Test Item Value Reference Range Interpretation Comments HEMOGLOBIN A1c (test code = 75008) 7.0 % HEMOGLOBIN [id number] 00:00:00 Test Item Value Reference Range Interpretation Comments HEMOGLOBIN A1c (test code = 87050) 7.0 % HEMOGLOBIN [id number] 00:00:00 Test Item Value Reference Range Interpretation Comments HEMOGLOBIN A1c (test code = 41249) 7.0 % HEMOGLOBIN [id number] 00:00:00 Test Item Value Reference Range Interpretation Comments HEMOGLOBIN A1c (test code = 40445) 7.0 % HEMOGLOBIN [id number] 00:00:00 Test Item Value Reference Range Interpretation Comments HEMOGLOBIN A1c (test code = 82373) 7.0 % HEMOGLOBIN [id number] 00:00:00 Test Item Value Reference Range Interpretation Comments HEMOGLOBIN A1c (test code = 37244) 7.0 % HEMOGLOBIN [id number] 00:00:00 Test Item Value Reference Range Interpretation Comments HEMOGLOBIN A1c (test code = 28390) 7.0 % HEMOGLOBIN [id number] 00:00:00 Test Item Value Reference Range Interpretation Comments HEMOGLOBIN A1c (test code = 09184) 7.0 % HEMOGLOBIN [id number] 00:00:00 Test Item Value Reference Range Interpretation Comments HEMOGLOBIN A1c (test code = 26234) 7.0 % HEMOGLOBIN [id number] 00:00:00 Test Item Value Reference Range Interpretation Comments HEMOGLOBIN A1c (test code = 47501) 7.0 % HEMOGLOBIN [id number] 00:00:00 Test Item Value Reference Range Interpretation Comments HEMOGLOBIN A1c (test code = 18930) 7.0 % HEMOGLOBIN [id number] 00:00:00 Test Item Value Reference Range Interpretation Comments HEMOGLOBIN A1c (test code = 71058) 7.0 % HEMOGLOBIN [id number] 00:00:00 Test Item Value Reference Range Interpretation Comments HEMOGLOBIN A1c (test code = 79004) 7.0 % HEMOGLOBIN [id number] 00:00:00 Test Item Value Reference Range Interpretation Comments HEMOGLOBIN A1c (test code = 06315) 7.0 % CBC W/AUTO [id number] 00:00:00 Test Item Value Reference Range Interpretation Comments WBC (test code = 1001) 11.0 K/UL RBC (test code = 1002) 5.67 M/UL HEMOGLOBIN (test code = 1003) 12.5 G/DL HEMATOCRIT (test code = 1004) 42.0 % MCV (test code = 1005) 74.1 fL MCH (test code = 1006) 22.0 PG MCHC (test code = 1007) 29.8 G/DL RDW (test code = 1038) 14.0 % NEUTROPHILS (test code = 1008) 70.6 % LYMPHOCYTES (test code = 1010) 15.9 % MONOCYTES (test code = 1011) 9.9 % EOSINOPHILS (test code = 1012) 3.2 % BASOPHILS (test code = 1013) 0.4 % PLATELET COUNT (test code = 1015) 321 K/UL CBC W/AUTO [id number] 00:00:00 Test Item Value Reference Range Interpretation Comments WBC (test code = 1001) 11.0 K/UL RBC (test code = 1002) 5.67 M/UL HEMOGLOBIN (test code = 1003) 12.5 G/DL HEMATOCRIT (test code = 1004) 42.0 % MCV (test code = 1005) 74.1 fL MCH (test code = 1006) 22.0 PG MCHC (test code = 1007) 29.8 G/DL RDW (test code = 1038) 14.0 % NEUTROPHILS (test code = 1008) 70.6 % LYMPHOCYTES (test code = 1010) 15.9 % MONOCYTES (test code = 1011) 9.9 % EOSINOPHILS (test code = 1012) 3.2 % BASOPHILS (test code = 1013) 0.4 % PLATELET COUNT (test code = 1015) 321 K/UL CBC W/AUTO [id number] 00:00:00 Test Item Value Reference Range Interpretation Comments WBC (test code = 1001) 11.0 K/UL RBC (test code = 1002) 5.67 M/UL HEMOGLOBIN (test code = 1003) 12.5 G/DL HEMATOCRIT (test code = 1004) 42.0 % MCV (test code = 1005) 74.1 fL MCH (test code = 1006) 22.0 PG MCHC (test code = 1007) 29.8 G/DL RDW (test code = 1038) 14.0 % NEUTROPHILS (test code = 1008) 70.6 % LYMPHOCYTES (test code = 1010) 15.9 % MONOCYTES (test code = 1011) 9.9 % EOSINOPHILS (test code = 1012) 3.2 % BASOPHILS (test code = 1013) 0.4 % PLATELET COUNT (test code = 1015) 321 K/UL CBC W/AUTO [id number] 00:00:00 Test Item Value Reference Range Interpretation Comments WBC (test code = 1001) 11.0 K/UL RBC (test code = 1002) 5.67 M/UL HEMOGLOBIN (test code = 1003) 12.5 G/DL HEMATOCRIT (test code = 1004) 42.0 % MCV (test code = 1005) 74.1 fL MCH (test code = 1006) 22.0 PG MCHC (test code = 1007) 29.8 G/DL RDW (test code = 1038) 14.0 % NEUTROPHILS (test code = 1008) 70.6 % LYMPHOCYTES (test code = 1010) 15.9 % MONOCYTES (test code = 1011) 9.9 % EOSINOPHILS (test code = 1012) 3.2 % BASOPHILS (test code = 1013) 0.4 % PLATELET COUNT (test code = 1015) 321 K/UL CBC W/AUTO [id number] 00:00:00 Test Item Value Reference Range Interpretation Comments WBC (test code = 1001) 11.0 K/UL RBC (test code = 1002) 5.67 M/UL HEMOGLOBIN (test code = 1003) 12.5 G/DL HEMATOCRIT (test code = 1004) 42.0 % MCV (test code = 1005) 74.1 fL MCH (test code = 1006) 22.0 PG MCHC (test code = 1007) 29.8 G/DL RDW (test code = 1038) 14.0 % NEUTROPHILS (test code = 1008) 70.6 % LYMPHOCYTES (test code = 1010) 15.9 % MONOCYTES (test code = 1011) 9.9 % EOSINOPHILS (test code = 1012) 3.2 % BASOPHILS (test code = 1013) 0.4 % PLATELET COUNT (test code = 1015) 321 K/UL CBC W/AUTO [id number] 00:00:00 Test Item Value Reference Range Interpretation Comments WBC (test code = 1001) 11.0 K/UL RBC (test code = 1002) 5.67 M/UL HEMOGLOBIN (test code = 1003) 12.5 G/DL HEMATOCRIT (test code = 1004) 42.0 % MCV (test code = 1005) 74.1 fL MCH (test code = 1006) 22.0 PG MCHC (test code = 1007) 29.8 G/DL RDW (test code = 1038) 14.0 % NEUTROPHILS (test code = 1008) 70.6 % LYMPHOCYTES (test code = 1010) 15.9 % MONOCYTES (test code = 1011) 9.9 % EOSINOPHILS (test code = 1012) 3.2 % BASOPHILS (test code = 1013) 0.4 % PLATELET COUNT (test code = 1015) 321 K/UL CBC W/AUTO [id number] 00:00:00 Test Item Value Reference Range Interpretation Comments WBC (test code = 1001) 11.0 K/UL RBC (test code = 1002) 5.67 M/UL HEMOGLOBIN (test code = 1003) 12.5 G/DL HEMATOCRIT (test code = 1004) 42.0 % MCV (test code = 1005) 74.1 fL MCH (test code = 1006) 22.0 PG MCHC (test code = 1007) 29.8 G/DL RDW (test code = 1038) 14.0 % NEUTROPHILS (test code = 1008) 70.6 % LYMPHOCYTES (test code = 1010) 15.9 % MONOCYTES (test code = 1011) 9.9 % EOSINOPHILS (test code = 1012) 3.2 % BASOPHILS (test code = 1013) 0.4 % PLATELET COUNT (test code = 1015) 321 K/UL CBC W/AUTO [id number] 00:00:00 Test Item Value Reference Range Interpretation Comments WBC (test code = 1001) 11.0 K/UL RBC (test code = 1002) 5.67 M/UL HEMOGLOBIN (test code = 1003) 12.5 G/DL HEMATOCRIT (test code = 1004) 42.0 % MCV (test code = 1005) 74.1 fL MCH (test code = 1006) 22.0 PG MCHC (test code = 1007) 29.8 G/DL RDW (test code = 1038) 14.0 % NEUTROPHILS (test code = 1008) 70.6 % LYMPHOCYTES (test code = 1010) 15.9 % MONOCYTES (test code = 1011) 9.9 % EOSINOPHILS (test code = 1012) 3.2 % BASOPHILS (test code = 1013) 0.4 % PLATELET COUNT (test code = 1015) 321 K/UL CBC W/AUTO [id number] 00:00:00 Test Item Value Reference Range Interpretation Comments WBC (test code = 1001) 11.0 K/UL RBC (test code = 1002) 5.67 M/UL HEMOGLOBIN (test code = 1003) 12.5 G/DL HEMATOCRIT (test code = 1004) 42.0 % MCV (test code = 1005) 74.1 fL MCH (test code = 1006) 22.0 PG MCHC (test code = 1007) 29.8 G/DL RDW (test code = 1038) 14.0 % NEUTROPHILS (test code = 1008) 70.6 % LYMPHOCYTES (test code = 1010) 15.9 % MONOCYTES (test code = 1011) 9.9 % EOSINOPHILS (test code = 1012) 3.2 % BASOPHILS (test code = 1013) 0.4 % PLATELET COUNT (test code = 1015) 321 K/UL CBC W/AUTO [id number] 00:00:00 Test Item Value Reference Range Interpretation Comments WBC (test code = 1001) 11.0 K/UL RBC (test code = 1002) 5.67 M/UL HEMOGLOBIN (test code = 1003) 12.5 G/DL HEMATOCRIT (test code = 1004) 42.0 % MCV (test code = 1005) 74.1 fL MCH (test code = 1006) 22.0 PG MCHC (test code = 1007) 29.8 G/DL RDW (test code = 1038) 14.0 % NEUTROPHILS (test code = 1008) 70.6 % LYMPHOCYTES (test code = 1010) 15.9 % MONOCYTES (test code = 1011) 9.9 % EOSINOPHILS (test code = 1012) 3.2 % BASOPHILS (test code = 1013) 0.4 % PLATELET COUNT (test code = 1015) 321 K/UL CBC W/AUTO [id number] 00:00:00 Test Item Value Reference Range Interpretation Comments WBC (test code = 1001) 11.0 K/UL RBC (test code = 1002) 5.67 M/UL HEMOGLOBIN (test code = 1003) 12.5 G/DL HEMATOCRIT (test code = 1004) 42.0 % MCV (test code = 1005) 74.1 fL MCH (test code = 1006) 22.0 PG MCHC (test code = 1007) 29.8 G/DL RDW (test code = 1038) 14.0 % NEUTROPHILS (test code = 1008) 70.6 % LYMPHOCYTES (test code = 1010) 15.9 % MONOCYTES (test code = 1011) 9.9 % EOSINOPHILS (test code = 1012) 3.2 % BASOPHILS (test code = 1013) 0.4 % PLATELET COUNT (test code = 1015) 321 K/UL CBC W/AUTO [id number] 00:00:00 Test Item Value Reference Range Interpretation Comments WBC (test code = 1001) 11.0 K/UL RBC (test code = 1002) 5.67 M/UL HEMOGLOBIN (test code = 1003) 12.5 G/DL HEMATOCRIT (test code = 1004) 42.0 % MCV (test code = 1005) 74.1 fL MCH (test code = 1006) 22.0 PG MCHC (test code = 1007) 29.8 G/DL RDW (test code = 1038) 14.0 % NEUTROPHILS (test code = 1008) 70.6 % LYMPHOCYTES (test code = 1010) 15.9 % MONOCYTES (test code = 1011) 9.9 % EOSINOPHILS (test code = 1012) 3.2 % BASOPHILS (test code = 1013) 0.4 % PLATELET COUNT (test code = 1015) 321 K/UL CBC W/AUTO [id number] 00:00:00 Test Item Value Reference Range Interpretation Comments WBC (test code = 1001) 11.0 K/UL RBC (test code = 1002) 5.67 M/UL HEMOGLOBIN (test code = 1003) 12.5 G/DL HEMATOCRIT (test code = 1004) 42.0 % MCV (test code = 1005) 74.1 fL MCH (test code = 1006) 22.0 PG MCHC (test code = 1007) 29.8 G/DL RDW (test code = 1038) 14.0 % NEUTROPHILS (test code = 1008) 70.6 % LYMPHOCYTES (test code = 1010) 15.9 % MONOCYTES (test code = 1011) 9.9 % EOSINOPHILS (test code = 1012) 3.2 % BASOPHILS (test code = 1013) 0.4 % PLATELET COUNT (test code = 1015) 321 K/UL CBC W/AUTO [id number] 00:00:00 Test Item Value Reference Range Interpretation Comments WBC (test code = 1001) 11.0 K/UL RBC (test code = 1002) 5.67 M/UL HEMOGLOBIN (test code = 1003) 12.5 G/DL HEMATOCRIT (test code = 1004) 42.0 % MCV (test code = 1005) 74.1 fL MCH (test code = 1006) 22.0 PG MCHC (test code = 1007) 29.8 G/DL RDW (test code = 1038) 14.0 % NEUTROPHILS (test code = 1008) 70.6 % LYMPHOCYTES (test code = 1010) 15.9 % MONOCYTES (test code = 1011) 9.9 % EOSINOPHILS (test code = 1012) 3.2 % BASOPHILS (test code = 1013) 0.4 % PLATELET COUNT (test code = 1015) 321 K/UL CBC W/AUTO [id number] 00:00:00 Test Item Value Reference Range Interpretation Comments WBC (test code = 1001) 11.0 K/UL RBC (test code = 1002) 5.67 M/UL HEMOGLOBIN (test code = 1003) 12.5 G/DL HEMATOCRIT (test code = 1004) 42.0 % MCV (test code = 1005) 74.1 fL MCH (test code = 1006) 22.0 PG MCHC (test code = 1007) 29.8 G/DL RDW (test code = 1038) 14.0 % NEUTROPHILS (test code = 1008) 70.6 % LYMPHOCYTES (test code = 1010) 15.9 % MONOCYTES (test code = 1011) 9.9 % EOSINOPHILS (test code = 1012) 3.2 % BASOPHILS (test code = 1013) 0.4 % PLATELET COUNT (test code = 1015) 321 K/UL CBC W/AUTO [id number] 00:00:00 Test Item Value Reference Range Interpretation Comments WBC (test code = 1001) 11.0 K/UL RBC (test code = 1002) 5.67 M/UL HEMOGLOBIN (test code = 1003) 12.5 G/DL HEMATOCRIT (test code = 1004) 42.0 % MCV (test code = 1005) 74.1 fL MCH (test code = 1006) 22.0 PG MCHC (test code = 1007) 29.8 G/DL RDW (test code = 1038) 14.0 % NEUTROPHILS (test code = 1008) 70.6 % LYMPHOCYTES (test code = 1010) 15.9 % MONOCYTES (test code = 1011) 9.9 % EOSINOPHILS (test code = 1012) 3.2 % BASOPHILS (test code = 1013) 0.4 % PLATELET COUNT (test code = 1015) 321 K/UL CBC W/AUTO [id number] 00:00:00 Test Item Value Reference Range Interpretation Comments WBC (test code = 1001) 11.0 K/UL RBC (test code = 1002) 5.67 M/UL HEMOGLOBIN (test code = 1003) 12.5 G/DL HEMATOCRIT (test code = 1004) 42.0 % MCV (test code = 1005) 74.1 fL MCH (test code = 1006) 22.0 PG MCHC (test code = 1007) 29.8 G/DL RDW (test code = 1038) 14.0 % NEUTROPHILS (test code = 1008) 70.6 % LYMPHOCYTES (test code = 1010) 15.9 % MONOCYTES (test code = 1011) 9.9 % EOSINOPHILS (test code = 1012) 3.2 % BASOPHILS (test code = 1013) 0.4 % PLATELET COUNT (test code = 1015) 321 K/UL CBC W/AUTO [id number] 00:00:00 Test Item Value Reference Range Interpretation Comments WBC (test code = 1001) 11.0 K/UL RBC (test code = 1002) 5.67 M/UL HEMOGLOBIN (test code = 1003) 12.5 G/DL HEMATOCRIT (test code = 1004) 42.0 % MCV (test code = 1005) 74.1 fL MCH (test code = 1006) 22.0 PG MCHC (test code = 1007) 29.8 G/DL RDW (test code = 1038) 14.0 % NEUTROPHILS (test code = 1008) 70.6 % LYMPHOCYTES (test code = 1010) 15.9 % MONOCYTES (test code = 1011) 9.9 % EOSINOPHILS (test code = 1012) 3.2 % BASOPHILS (test code = 1013) 0.4 % PLATELET COUNT (test code = 1015) 321 K/UL CBC W/AUTO [id number] 00:00:00 Test Item Value Reference Range Interpretation Comments WBC (test code = 1001) 11.0 K/UL RBC (test code = 1002) 5.67 M/UL HEMOGLOBIN (test code = 1003) 12.5 G/DL HEMATOCRIT (test code = 1004) 42.0 % MCV (test code = 1005) 74.1 fL MCH (test code = 1006) 22.0 PG MCHC (test code = 1007) 29.8 G/DL RDW (test code = 1038) 14.0 % NEUTROPHILS (test code = 1008) 70.6 % LYMPHOCYTES (test code = 1010) 15.9 % MONOCYTES (test code = 1011) 9.9 % EOSINOPHILS (test code = 1012) 3.2 % BASOPHILS (test code = 1013) 0.4 % PLATELET COUNT (test code = 1015) 321 K/UL CBC W/AUTO [id number] 00:00:00 Test Item Value Reference Range Interpretation Comments WBC (test code = 1001) 11.0 K/UL RBC (test code = 1002) 5.67 M/UL HEMOGLOBIN (test code = 1003) 12.5 G/DL HEMATOCRIT (test code = 1004) 42.0 % MCV (test code = 1005) 74.1 fL MCH (test code = 1006) 22.0 PG MCHC (test code = 1007) 29.8 G/DL RDW (test code = 1038) 14.0 % NEUTROPHILS (test code = 1008) 70.6 % LYMPHOCYTES (test code = 1010) 15.9 % MONOCYTES (test code = 1011) 9.9 % EOSINOPHILS (test code = 1012) 3.2 % BASOPHILS (test code = 1013) 0.4 % PLATELET COUNT (test code = 1015) 321 K/UL CBC W/AUTO [id number] 00:00:00 Test Item Value Reference Range Interpretation Comments WBC (test code = 1001) 11.0 K/UL RBC (test code = 1002) 5.67 M/UL HEMOGLOBIN (test code = 1003) 12.5 G/DL HEMATOCRIT (test code = 1004) 42.0 % MCV (test code = 1005) 74.1 fL MCH (test code = 1006) 22.0 PG MCHC (test code = 1007) 29.8 G/DL RDW (test code = 1038) 14.0 % NEUTROPHILS (test code = 1008) 70.6 % LYMPHOCYTES (test code = 1010) 15.9 % MONOCYTES (test code = 1011) 9.9 % EOSINOPHILS (test code = 1012) 3.2 % BASOPHILS (test code = 1013) 0.4 % PLATELET COUNT (test code = 1015) 321 K/UL"
--- NOTE | 2022-11-10 17:55 | RAD REPORT ---
EXAM DESCRIPTION: RAD - Chest Single View - 11/10/2022 5:36 pm CLINICAL HISTORY: CHEST PAIN COMPARISON: Chest Single View dated 06/13/2022; Chest Single View dated 08/02/2020 FINDINGS: Lines: None. Lungs: No evidence of edema or pneumonia. Pleural: No significant pleural effusions or pneumothorax. Low lung volumes which accentuates the pul monary vasculature. Cardiac: The heart size is within normal limits. Mediastinum: Within normal limits. Bones: No acute fractures. Other: None IMPRESSION: No acute cardiopulmonary disease.
[2022-11-10] MEDS ORDERED: ASPIRIN 81 MG CHEWABLE TABLET ONE (20:16)
[2022-11-10 20:41] LABS: Hematocrit 39.8 % (39.6-49.0); Lymphocytes % 27.4 % (15.3-44.8); MCV 72.9 fL (80-100); MPV 8.2 fL (7.6-11.3); RBC Red Blood Cell Count 5.46 M/uL (4.33-5.43)
[2022-11-10 20:53] LABS: Protime INR 0.93
[2022-11-10 21:02] LABS: ALT/SGPT 34 U/L (16-61); AST/SGOT 18 U/L (15-37); Albumin 3.1 g/dL (3.4-5.0); Alkaline Phosphatase 110 U/L (45-117); BUN Blood Urea Nitrogen 12 mg/dL (7-18); Bicarbonate 32 mmol/L (21-32); Bilirubin Total 0.3 mg/dL (0.2-1.0); Glomerular Filtration Rate 74 ml/min (=/>90); Glucose Level 146 mg/dL (74-106); Magnesium 2.2 mg/dL (1.6-2.4); NT PRO-BNP 21 pg/mL (<125); Protein, Total 7.9 g/dL (6.4-8.2); Sodium Level 138 mmol/L (136-145); Troponin High Sensitivity 35.7 pg/mL (<58.9)
[2022-11-10 21:08] LABS: Bilirubin Direct < 0.1 mg/dL (0-0.2)
[2022-11-10 21:45] LABS: Anisocytosis SLIGHT; Blood Morphology Comment NOTED (NOT SEEN); Platelet Estimate ADEQ; Polychromasia SLIGHT; White Blood Cell Scan OK (OK)
[2022-11-10] MEDS ORDERED: METOPROLOL TAR 25 MG TAB ONE (22:08)
[2022-11-10] MEDS ORDERED: AMLODIPINE 10 MG TAB ONE (22:08)
--- NOTE | 2022-11-10 22:59 | ER ---
Nurse's Notes Former[facility] Name: Russel Sotelo Age: 52 yrs Sex: Male : 1970 Arrival Date: 11/10/2022 Time: 16:58 Bed 11 Private MD: Diagnosis: Chest pain, unspecified;Encounter for issue of repeat prescription;Hypertensive heart disease without heart failure;Other specified diabetes mellitus without complications Presentation: 11/10 17:04 Chief complaint: Patient states: CP, HTN, and palpitation for 1 week. Out of his BP ll1 meds for 1 week. Coronavirus screen: Vaccine status: Patient reports receiving the 2nd dose of the covid vaccine. Client denies travel out of the [place] in the last 14 days. At this time, the client does not indicate any symptoms associated with coronavirus-19. Ebola Screen: Patient denies travel to an Ebola-affected area in the 21 days before illness onset. Initial Sepsis Screen: Does the patient meet any 2 criteria? No. Patient's initial sepsis screen is negative. Does the patient have a suspected source of infection? No. Patient's initial sepsis screen is negative. Risk Assessment: Do you want to hurt yourself or someone else? Patient reports no desire to harm self or others. Onset of symptoms was November 03, 2022. 17:04 Method Of Arrival: Ambulatory ll1 17:04 Acuity: TRUE 3 ll1 Triage Assessment: 17:07 General: Appears uncomfortable, Behavior is calm, cooperative, appropriate for age. ll1 General: out of BP meds for 1 week.. Pain: Complains of pain in chest Pain currently is 6 out of 10 on a pain scale. Quality of pain is described as aching. Cardiovascular: Reports chest pain, palpitations, high BP Chest pain. Historical: - Allergies: 17:06 No Known Allergies; ll1 - PMHx: 17:06 Hypertensive disorder; Hypercholesterolemia; ll1 - PSHx: 17:06 hole in intestines repaired; ll1 - Immunization history:: Client reports receiving the 2nd dose of the Covid vaccine. - Social history:: Smoking status: Patient denies any tobacco usage or history of. Screenin:15 [facility] ED Fall Risk Assessment (Adult) History of falling in the last 3 months, tw5 including since admission. Abuse screen: Denies threats or abuse. Denies injuries from another. Nutritional screening: No deficits noted. Tuberculosis screening: No symptoms or risk factors identified. Assessment: 20:31 General: Reports "I am not having any pain right now. I feel fine at the moment. Pain: tw5 Denies pain. Neuro: No deficits noted. Cardiovascular: Capillary refill < 3 seconds is brisk in left in bilateral. Respiratory: Airway is patent Trachea midline Respiratory effort is even, unlabored. GI: Abdomen is obese. 22:15 General: Appears in no apparent distress. Behavior is calm, cooperative, appropriate tw5 for age, Reports "I am doing alright.". Pain: Denies pain. 23:25 Reassessment: Patient states feeling better. Patient states symptoms have improved. tw5 Vital Signs: 17:04 BP 180 / 99; Pulse 85; Resp 18; Temp 98.7; Pulse Ox 95% ; Weight 140.16 kg; Height 5 ll1 ft. 9 in. (175.26 cm); Pain 6/10; 20:31 BP 135 / 79; Pulse 72; Resp 18; Pulse Ox 94% on R/A; Pain 0/10; tw5 22:15 BP 143 / 80; Pulse 82; Resp 18; Pulse Ox 99% on R/A; tw5 23:25 BP 137 / 87; Pulse 80; Resp 18; Pulse Ox 100% ; tw5 17:04 Body Mass Index 45.63 (140.16 kg, 175.26 cm) ll1 ED Course: 16:58 Patient arrived in ED. as 16:58 Adam Henderson PA is PHCP. cp 16:58 Adam Rios MD is Attending Physician. cp 17:06 Triage completed. ll1 17:07 Arm band placed on. ll1 17:38 XRAY Chest (1 view) In Process Unspecified. EDMS 19:30 Mile Rivas is Primary Nurse. tw5 19:40 Missed attempt(s): 22 gauge in right antecubital area. Bleeding controlled, band aid mb4 applied, catheter tip intact. 20:30 Basic Metabolic Panel Sent. tw5 20:30 CBC with Diff Sent. tw5 20:30 LFT's Sent. tw5 20:30 Magnesium Sent. tw5 20:30 NT PRO-BNP Sent. tw5 20:30 PT-INR Sent. tw5 20:30 Troponin HS Sent. tw5 20:31 Awaiting lab results. tw5 20:31 Patient has correct armband on for positive identification. Placed in gown. Bed in low tw5 position. Pulse ox on. NIBP on. Door closed. Noise minimized. Moved to private room. Warm blanket given. Verbal reassurance given. 20:31 Initial lab(s) drawn, by me, sent to lab. Inserted saline lock: 20 gauge in right hand, tw5 using aseptic technique. Blood collected. Patient maintains SpO2 saturation greater than 95% on room air. 22:56 Jeremy Jones MD is Referral Physician. cp 23:25 No provider procedures requiring assistance completed. IV discontinued, intact, tw5 bleeding controlled, No redness/swelling at site. Pressure dressing applied. Administered Medications: 20:17 Drug: Aspirin Chewable Tablet 324 mg Route: PO; tw5 20:30 Follow up: Response: No adverse reaction tw5 22:16 Drug: Metoprolol 25 mg Route: PO; tw5 23:25 Follow up: Response: No adverse reaction tw5 22:17 Drug: amLODIPine 10 mg Route: PO; tw5 23:25 Follow up: Response: No adverse reaction tw5 Medication: 23:25 VIS not applicable for this client. tw5 Outcome: 22:58 Discharge ordered by MD. cp 23:25 Discharged to home ambulatory. tw5 23:25 Condition: improved 23:25 Discharge instructions given to patient, Instructed on discharge instructions, follow up and referral plans. medication usage, Demonstrated understanding of instructions, follow-up care, medications, Prescriptions given X x7 23:28 Patient left the ED. tw5 Signatures: Dispatcher [employer] EDMS Jana Escobar Corey, PA PA Trudy Barnes mb4 Amaris Yusuf RN RN ll1 Mile Rivas tw5 Corrections: (The following items were deleted from the chart) 17:08 17:04 Chief complaint: Patient states: CP, HTN, and palpitation for 1 week. ll1 ll1
--- NOTE | 2022-11-10 22:59 | EDPHYS ---
Physician Documentation [facility] Name: Russel Sotelo Age: 52 yrs Sex: Male : 1970 Arrival Date: 11/10/2022 Time: 16:58 Bed 11 Private MD: Adam Lewis HPI: 11/10 17:15 This 52 yrs old Black Male presents to ER via Ambulatory with complaints of Chest Pain, cp Palpitations, High Blood Pressure. 17:15 The patient or guardian reports chest pain that is located primarily in the anterior cp chest wall, bilaterally. 17:15 Onset: 1 week(s) ago. The pain does not radiate. Associated signs and symptoms: cp Pertinent positives: lower extremity swelling, palpitations, shortness of breath, Pertinent negatives: diaphoresis, dizziness, lower extremity pain, syncope, vomiting. The chest pain is described as a heaviness. Duration: The patient or guardian reports a single episode, that is still ongoing, and unchanged. Patient reports running out of prescribed blood pressure, cholesterol and diabetes medications 1 week ago. Historical: - Allergies: 17:06 No Known Allergies; ll1 - PMHx: 17:06 Hypertensive disorder; Hypercholesterolemia; ll1 - PSHx: 17:06 hole in intestines repaired; ll1 - Immunization history:: Client reports receiving the 2nd dose of the Covid vaccine. - Social history:: Smoking status: Patient denies any tobacco usage or history of. ROS: 17:20 Constitutional: Negative for body aches, chills, fever, poor PO intake. cp 17:20 Eyes: Negative for injury, pain, redness, and discharge. cp 17:20 ENT: Negative for drainage from ear(s), ear pain, sore throat, difficulty swallowing, difficulty handling secretions. 17:20 Cardiovascular: Positive for chest pain, edema, palpitations. 17:20 Respiratory: Positive for shortness of breath, on exertion. Negative for cough, wheezing. 17:20 Abdomen/GI: Negative for abdominal pain, nausea, vomiting, and diarrhea. 17:20 Skin: Negative for cellulitis, rash. 17:20 Neuro: Negative for altered mental status, dizziness, headache, numbness, syncope, weakness. 17:20 All other systems are negative. Exam: 17:16 ECG was reviewed by the Attending Physician. cp 17:23 Constitutional: The patient appears in no acute distress, alert, awake, cp non-diaphoretic, non-toxic, well developed, well nourished, obese. 17:23 Head/Face: Normocephalic, atraumatic. cp 17:23 Eyes: Periorbital structures: appear normal, Conjunctiva: normal, no exudate, no injection, Sclera: no appreciated abnormality, Lids and lashes: appear normal, bilaterally. 17:23 ENT: External ear(s): are unremarkable, Nose: is normal, Mouth: Lips: moist, Oral mucosa: pink and intact, moist, Posterior pharynx: Airway: no evidence of obstruction, patent, erythema, is not appreciated, exudate, is not appreciated. 17:23 Neck: ROM/movement: is normal, is supple, without pain, no range of motions limitations. 17:23 Chest/axilla: Inspection: normal, Palpation: is normal, no crepitus, no tenderness. 17:23 Cardiovascular: Rate: normal, Rhythm: regular, Edema: ankle edema, that is mild, JVD: is not appreciated. 17:23 Respiratory: the patient does not display signs of respiratory distress, Respirations: normal, no use of accessory muscles, no retractions, labored breathing, is not present, Breath sounds: are clear throughout, no decreased breath sounds, no stridor, no wheezing. 17:23 Abdomen/GI: Inspection: obese Palpation: abdomen is soft and non-tender, in all quadrants. 17:23 Back: pain, is absent, ROM is normal. 17:23 Skin: no rash present. 17:23 Neuro: Orientation: to person, place \T\ time. Mentation: is normal, Motor: moves all fours, strength is normal, Sensation: is normal. Vital Signs: 17:04 BP 180 / 99; Pulse 85; Resp 18; Temp 98.7; Pulse Ox 95% ; Weight 140.16 kg; Height 5 ll1 ft. 9 in. (175.26 cm); Pain 6/10; 20:31 BP 135 / 79; Pulse 72; Resp 18; Pulse Ox 94% on R/A; Pain 0/10; tw5 22:15 BP 143 / 80; Pulse 82; Resp 18; Pulse Ox 99% on R/A; tw5 23:25 BP 137 / 87; Pulse 80; Resp 18; Pulse Ox 100% ; tw5 17:04 Body Mass Index 45.63 (140.16 kg, 175.26 cm) ll1 MDM: 19:03 Patient medically screened. [facility] 22:58 Data reviewed: vital signs, nurses notes, lab test result(s), EKG, radiologic studies, cp plain films. 22:58 The patient was given aspirin in the Emergency Department. Data interpreted: Cardiac cp monitor: rate is 81 beats/min, rhythm is normal sinus rhythm, Pulse oximetry: on room air is 99 %. Interpretation: normal. Test interpretation: by ED physician or midlevel provider: ECG, plain radiologic studies. Counseling: I had a detailed discussion with the patient and/or guardian regarding: the historical points, exam findings, and any diagnostic results supporting the discharge/admit diagnosis, the presence of at least one elevated blood pressure reading (>120/80) during this emergency department visit, lab results, radiology results, the need for outpatient follow up, a family practitioner, to return to the emergency department if symptoms worsen or persist or if there are any questions or concerns that arise at home. Response to treatment: the patient's symptoms have markedly improved after treatment, and as a result, I will discharge patient. ED course: VSS. Patient reports symptoms improved. Most likely cause of chest pain due to being off meds. Will discharge to home for continued monitoring. 11/10 17:11 Order name: Basic Metabolic Panel; Complete Time: 21:21 11/10 22:54 Interpretation: Normal except: GLUC 146; GFR 74. 11/10 17:11 Order name: CBC with Diff; Complete Time: 22:54 11/10 22:54 Interpretation: RBC 5.46; HGB 12.1; MCV 72.9; MCH 22.2; MCHC 30.4; RDW 17.9; MN% 14.2. 11/10 17:11 Order name: LFT's; Complete Time: 21:21 11/10 22:54 Interpretation: ALB 3.1; GLOB 4.8; A/G 0.6; Reviewed. 11/10 17:11 Order name: Magnesium; Complete Time: 21:21 11/10 17:11 Order name: NT PRO-BNP; Complete Time: 21:21 11/10 17:11 Order name: PT-INR; Complete Time: 21:21 11/10 17:11 Order name: Troponin HS; Complete Time: 21:21 cp 11/10 17:11 Order name: XRAY Chest (1 view); Complete Time: 19:53 cp 11/10 17:11 Order name: EKG; Complete Time: 17:12 cp 11/10 21:23 Order name: Troponin High Sensitivity; Complete Time: 22:54 cp 11/10 21:45 Order name: CBC Smear Scan; Complete Time: 22:54 EDMS 11/10 17:11 Order name: Cardiac monitoring; Complete Time: 20:30 cp 11/10 17:11 Order name: EKG - Nurse/Tech; Complete Time: 20:20 cp 11/10 17:11 Order name: IV Saline Lock; Complete Time: 20:30 cp 11/10 17:11 Order name: Labs collected and sent; Complete Time: 20:30 cp 11/10 17:11 Order name: O2 Per Protocol; Complete Time: 20:30 cp 11/10 17:11 Order name: O2 Sat Monitoring; Complete Time: 20:30 cp EC:16 Rate is 80 beats/min. Rhythm is regular. LA interval is normal. QRS interval is normal. cp QT interval is normal. T waves are Inverted in lead aVR. Interpreted by me. Reviewed by me. Administered Medications: 20:17 Drug: Aspirin Chewable Tablet 324 mg Route: PO; tw5 20:30 Follow up: Response: No adverse reaction tw5 22:16 Drug: Metoprolol 25 mg Route: PO; tw5 23:25 Follow up: Response: No adverse reaction tw5 22:17 Drug: amLODIPine 10 mg Route: PO; tw5 23:25 Follow up: Response: No adverse reaction tw5 Disposition Summary: 11/10/22 22:58 Discharge Ordered Location: Home cp Problem: chronic cp Symptoms: have improved cp Condition: Stable cp Diagnosis - Chest pain, unspecified cp - Encounter for issue of repeat prescription cp - Hypertensive heart disease without heart failure cp - Other specified diabetes mellitus without complications cp Followup: cp - With: Jeremy Jones MD - When: 2 - 3 days - Reason: Recheck today's complaints Discharge Instructions: - Discharge Summary Sheet cp - Nonspecific Chest Pain, Adult cp - Hypertension, Adult cp - Aspirin and Your Heart cp - Form - Blood Pressure Record Sheet cp - Blood Glucose Monitoring, Adult cp - How to Take Your Blood Pressure cp Forms: - Medication Reconciliation Form cp - Thank You Letter cp - Antibiotic Education cp - Prescription Opioid Use cp Prescriptions: - Farxiga 10 mg Oral tablet - take 1 tablet by ORAL route once daily in the morning; 30 tablet; Refills: 0, cp Product Selection Permitted - Trulicity 1.5 mg/0.5 mL Subcutaneous pen injector - inject 1.5 milligram by SUBCUTANEOUS route once wkly; 6 milligram; Refills: 0, cp Product Selection Permitted - amlodipine 10 mg Oral tablet - take 1 tablet by ORAL route once daily; 30 tablet; Refills: 0, Product cp Selection Permitted - atorvastatin 40 mg Oral tablet - take 1 tablet by ORAL route At bedtime; 30 tablet; Refills: 0, Product cp Selection Permitted - Lasix 20 mg Oral Tablet - take 1 tablet by ORAL route once daily; 20 tablet; Refills: 0, Product cp Selection Permitted - Metoprolol Tartrate 25 mg Oral Tablet - take 1 tablet by ORAL route 2 times per day with a meal; 60 tablet; Refills: 0, cp Product Selection Permitted - Metformin 1,000 mg Oral Tablet - take 0.5 tablet by ORAL route every 12 hours with morning and evening meals; 30 cp tablet; Refills: 0, Product Selection Permitted Signatures: Dispatcher [employer] Adam Gonsales MD MD cha Page, Corey PA PA Amaris Thompson RN RN llMile Iyer tw5 Corrections: (The following items were deleted from the chart) 20:30 17:11 Accucheck Blood Glucose ordered. cp tw5
[2022-11-11 00:15] VITALS: TEMP 98.7
[2022-11-11 00:19] VITALS: BP 137/87; O2SAT 100
--- NOTE | 2022-11-12 17:49 | EKG ---
Test Date: 2022-11-10 Test Time: 17:12:15 [employer]age [employer] Worker: [employer] MEASUREMENT RESULTS: Intervals: Rate: 80 VT: 150 QRSD: 88 QT: 394 QTc: 454 Mitchells: P: 43 VT: 150 QRS: -9 T: 22 INTERPRETIVE STATEMENTS: Normal sinus rhythm Normal ECG Compared to ECG 06/13/2022 03:41:51 No significant changes Electronically Signed On 11-12-22 17:45:44 MUSIC COMPOSITION TEACHER by Tae Butler
== END 2022-11-10 23:28 | disposition home or self-care (01) ==
LOC: ER 16:56
DX: I11.9 Hypertensive heart disease without heart failure (principal); E13.9 Other specified diabetes mellitus without complications; Z76.0 Encounter for issue of repeat prescription
CPT/HCPCS: 36415; 71045; 80048; 80076; 83735; 83880; 84484; 85025; 85610; 93005; 99284

== ENCOUNTER 2023-08-18 08:14 | Observation (INO) | payer BC ==
--- OUTSIDE RECORDS SUMMARY | 2023-08-18 08:30 | XMS REPORT | Continuity of Care Document ---
:1970 Author Organization [facility] t Address [address] [place] [address] Care Team Providers Name Role Phone Pcp, Patient Does Not Have A Primary Care Physician +[id number] Jan Rodriges Attending Clinician Unavailable Amairani Steward Attending Clinician Unavailable Ember Mena MD Attending Clinician EMBER MENA Attending Clinician Unavailable EMBER MENA Attending Clinician Unavailable [facility], [facility] Sleep Lab Attending Clinician Unavailable Doctor Unassigned, [place] Attending Clinician Unavailable Reina Velazquez LVN Attending Clinician CHIRAG LEE Attending Clinician Unavailable Jay Hays Attending Clinician Chirag Lee DO Attending Clinician Zenaida, General Cardiology Attending Clinician Unavailable , [facility] Sleep Lab Bed Attending Clinician Unavailable Only, [facility] Test Attending Clinician Unavailable Steve Grande MD Attending Clinician Milagro Jeong MD Attending Clinician MILAGRO JEONG Attending Clinician Unavailable Yuriy Aguilar Attending Clinician Donnie Olson RN Attending Clinician Unavailable AL BLOCK Attending Clinician Unavailable CHIRAG LEE Admitting Clinician Unavailable Chirag Lee DO Admitting Clinician AL BLOCK Admitting Clinician Unavailable Payers Payer Name Policy Type Policy Number Effective Date Expiration Date S ource Problems Condition Condition Condition Status Onset Resolution Last Treating Co mments Source Name Details Category Date Date Treatment Clinician Date Pulmonary Pulmonary Disease Active Uni vers embolism embolism 03-16 ity of 00:00: [place] 00 Medical Branch Hyperglyce Hyperglyce Disease Active U nivers sayra sayra 03-16 ity of 00:00: [place] 00 Medical Branch NSVT NSVT Disease Active Univers (nonsustai (nonsustai 07-29 it y of olga olga 00:00: [place] ventricula ventricula 00 Me dical r r Branch tachycardi tachycardi a) a) Hypertensi Hypertensi Disease Active U nivers ve ve 07-28 it[place] emergency emergency [place] Other Other Disease Active Univers [...] Morbid Morbid Disease Active Univers obesity obesity 9-12 ity of with body [place] body [place] mass [place] mass index 00 Me dical of of Branch 40.0-49.9 40.0-49.9 Hypoxia Hypoxia Disease Active 2019- Univers 9-12 ity of 00:00: [place] 00 Medical Branch Morbid Morbid Disease Active 2020 Univers obesity obesity 9-12 ity of with body with body [place] mass [place] mass index 00 Me dical of of Branch 40.0-49.9 40.0-49.9 Allergies, Adverse Reactions, Alerts Allergy Allergy Status Severity Reaction(s) Onset Inactive Treating Comm ents Source Name Type Date Date Clinician NO KNOWN Drug Active Univers ALLERGIE Class ity of S [facility] Social History Social Habit Start Date Stop Date Quantity Comments Source History SDOH Social Unive rsity of Connections Get [place] Med ical Together Branch History SDOH Social Unive rsity of Connections Congregation [place] [facility] History SDOH Social Unive rsity of Connections [place] [facility] Membership Branch History SDOH Social Unive rsity of Connections [place] [facility] Meet[facility] Gender identity [facility] y [facility] [place] [facility] Sexual orientation Univer sity of [place] [facility] Alcohol intake 2023-07-22 2023-07-22 Ex-drinker University of 00:00:00 00:00:00 (finding) [place] [facility] History of Social 2023-07-22 2023-07-22 Univers ity of function 00:00:00 00:00:00 [place] [facility] History SDOH 2023-03-18 2023-03-18 1 University o f Alcohol Frequency 00:00:00 00:00:00 [place] M edical Branch History SDOH Social 2023-03-18 2023-03-18 5 Unive rsity of Connections Phone 00:00:00 00:00:00 [place] M edical Branch History SDOH Social 2023-03-18 2023-03-18 3 Unive rsity of Connections Living 00:00:00 00:00:00 [place] [facility] History SDOH 2023-03-18 2023-03-18 5 University o f Financial 00:00:00 00:00:00 [place] [facility] History SDOH Food 2023-03-18 2023-03-18 1 Univers ity of Worry 00:00:00 00:00:00 [place] [facility] History SDOH Food 2023-03-18 2023-03-18 1 Univers ity of Scarcity 00:00:00 00:00:00 [place] [facility] History SDOH 2023-03-18 2023-03-18 2 University o f Transport Med 00:00:00 00:00:00 [place] Medic al Branch History SDOH 2023-03-18 2023-03-18 2 University o f Transport Non-Med 00:00:00 00:00:00 [place] M edical Branch History SDOH 2023-03-18 2023-03-18 2 University o f Housing Unable to 00:00:00 00:00:00 [place] M edical Pay Branch History SDOH 2023-03-18 2023-03-18 1 University o f Housing Places 00:00:00 00:00:00 [place] Medi yoni Lived Branch History SDOH 2023-03-18 2023-03-18 2 University o f Housing Homeless 00:00:00 00:00:00 [place] Me hughes Last Year Branch Exposure to 2023-03-06 2023-03-16 Not sure [facility] SARS-CoV-2 (event) 00:00:00 15:42:00 [facility] Tobacco use and 2023-03-16 2023-03-16 User of Universit y of exposure 00:00:00 00:00:00 smokeless [facility] tobacco Branch Education 2023-03-16 2023-03-16 21 University of 00:00:00 00:00:00 [place] [facility] History SDOH 2020-07-28 2020-07-28 99 [place] o f Alcohol Std Drinks 00:00:00 00:00:00 [place] [facility] History SDME 2020-07-28 2020-07-28 99 [place] o f Alcohol Binge 00:00:00 00:00:00 [place] Medic al Branch Sex [birth year] At [birth year] Universit y of 00:00:00 00:00:00 [facility] Smoking Status Start Date Stop Date Source Never smoked tobacco [facility] Medications Ordered Filled Start Stop Current Ordering Indication Dosage Frequency Signature Comments Components Source Medication Medication Date Date Medication? Clinician (SIG) Name Name pneumoc Yes .5mL 0.5 mL, Univers 20-devorah 5-05 Intramuscu ity of conj-dip 17:01: [facility], [place] cr(PF) 57 ONCE-PRIOR Medical (PREVNAR 20 TO Branch (PF)) DISCHARGE, injection 1 dose, 0.5 mL Starting on Wed03/19/23 at 1201, Until Discontinu ed, Routine, Give vaccine prior to discharge metformin Yes 1000mg Take 2 Univ ers ER 500 mg 5-05 tablets by ity of 24 hr 15:46: mouth in [place] tablet 27 the Medical morning Branch and 2 tablets in the evening. atorvastati Yes 40mg Take 1 Univ ers n 40 mg 5-05 tablet by ity of tablet 15:46: mouth at [place] [address] bedtime. Medical Branch allopurinoL Yes 300mg Take 3 Uni vers 100 mg 5-05 tablets by ity of tablet 15:46: mouth in [place] [address] the Medical morning. Branch losartan 25 2023-0 Yes 25mg Take 1 Univ ers mg tablet 5-05 tablet by ity o f 15:46: mouth in [place] [address] the Medical morning. Branch metformin 2023-0 Yes 1000mg Take 2 Univ ers ER 500 mg 5-05 tablets by ity of 24 hr 15:46: mouth in [place] tablet 27 the Medical morning Branch and 2 tablets in the evening. atorvastati 2023-0 Yes 40mg Take 1 Univ ers n 40 mg 5-05 tablet by ity of tablet 15:46: mouth at [place] [address] bedtime. Medical Branch allopurinoL 2023-0 Yes 300mg Take 3 Uni vers 100 mg 5-05 tablets by ity of tablet 15:46: mouth in [place] [address] the Medical morning. Branch losartan 25 2023-0 Yes 25mg Take 1 Univ ers mg tablet 5-05 tablet by ity o f 15:46: mouth in [place] [address] the Medical morning. Branch metformin 2023-0 Yes 1000mg Take 2 Univ ers ER 500 mg 5-05 tablets by ity of 24 hr 15:46: mouth in [place] tablet the Medical morning Branch and 2 tablets in the evening. atorvastati 2023-0 Yes 40mg Take 1 Univ ers n 40 mg 5-05 tablet by ity of tablet 15:46: mouth at [place] [address] bedtime. Medical Branch allopurinoL 2023-0 Yes 300mg Take 3 Uni vers 100 mg 5-05 tablets by ity of tablet 15:46: mouth in [place] [address] the Medical morning. Branch losartan 25 2023-0 Yes 25mg Take 1 Univ ers mg tablet 5-05 tablet by ity o f 15:46: mouth in [place] [address] the Medical morning. Branch metformin 2023-0 Yes 1000mg Take 2 Univ ers ER 500 mg 5-05 tablets by ity of 24 hr 15:46: mouth in [place] tablet the Medical morning Branch and 2 tablets in the evening. atorvastati 2023-0 Yes 40mg Take 1 Univ ers n 40 mg 5-05 tablet by ity of tablet 15:46: mouth at [place] [address] bedtime. Medical Branch allopurinoL 2023-0 Yes 300mg Take 3 Uni vers 100 mg 5-05 tablets by ity of tablet 15:46: mouth in [place] [address] the Medical morning. Branch losartan 25 2023-0 Yes 25mg Take 1 Univ ers mg tablet 5-05 tablet by ity o f 15:46: mouth in [place] [address] the Medical morning. Branch metformin 2023-0 Yes 1000mg Take 2 Univ ers ER 500 mg 5-05 tablets by ity of 24 hr 15:46: mouth in [place] tablet 27 the Medical morning Branch and 2 tablets in the evening. atorvastati 2023-0 Yes 40mg Take 1 Univ ers n 40 mg 5-05 tablet by ity of tablet 15:46: mouth at [place] [address] bedtime. Medical Branch allopurinoL 2023-0 Yes 300mg Take 3 Uni vers 100 mg 5-05 tablets by ity of tablet 15:46: mouth in [place] [address] the Medical morning. Branch losartan 25 2023-0 Yes 25mg Take 1 Univ ers mg tablet 5-05 tablet by ity o f 15:46: mouth in [place] [address] the Medical morning. Branch metformin 2023-0 Yes 1000mg Take 2 Univ ers ER 500 mg 5-05 tablets by ity of 24 hr 15:46: mouth in [place] tablet the Medical morning Branch and 2 tablets in the evening. atorvastati 2023-0 Yes 40mg Take 1 Univ ers n 40 mg 5-05 tablet by ity of tablet 15:46: mouth at [place] [address] bedtime. Medical Branch allopurinoL 2023-0 Yes 300mg Take 3 Uni vers 100 mg 5-05 tablets by ity of tablet 15:46: mouth in [place] [address] the Medical morning. Branch losartan 25 2023-0 Yes 25mg Take 1 Univ ers mg tablet 5-05 tablet by ity o f 15:46: mouth in [place] [address] the Medical morning. Branch metformin 2023-0 Yes 1000mg Take 2 Univ ers ER 500 mg 5-05 tablets by ity of 24 hr 15:46: mouth in [place] tablet the Medical morning Branch and 2 tablets in the evening. atorvastati 2023-0 Yes 40mg Take 1 Univ ers n 40 mg 5-05 tablet by ity of tablet 15:46: mouth at [place] [address] bedtime. Medical Branch allopurinoL 2023-0 Yes 300mg Take 3 Uni vers 100 mg 5-05 tablets by ity of tablet 15:46: mouth in [place] [address] the Medical morning. Branch losartan 25 2023-0 Yes 25mg Take 1 Univ ers mg tablet 5-05 tablet by ity o f 15:46: mouth in [place] [address] the Medical morning. Branch metformin 2023-0 Yes 1000mg Take 2 Univ ers ER 500 mg 5-05 tablets by ity of 24 hr 15:46: mouth in [place] tablet 27 the Medical morning Branch and 2 tablets in the evening. atorvastati 2023-0 Yes 40mg Take 1 Univ ers n 40 mg 5-05 tablet by ity of tablet 15:46: mouth at [place] [address] bedtime. Medical Branch allopurinoL 2023-0 Yes 300mg Take 3 Uni vers 100 mg 5-05 tablets by ity of tablet 15:46: mouth in [place] [address] the Medical morning. Branch losartan 25 2023-0 Yes 25mg Take 1 Univ ers mg tablet 5-05 tablet by ity o f 15:46: mouth in [place] [address] the Medical morning. Branch metformin 2023-0 Yes 1000mg Take 2 Univ ers ER 500 mg 5-05 tablets by ity of 24 hr 15:46: mouth in [place] tablet the Medical morning Branch and 2 tablets in the evening. atorvastati 2023-0 Yes 40mg Take 1 Univ ers n 40 mg 5-05 tablet by ity of tablet 15:46: mouth at [place] [address] bedtime. Medical Branch allopurinoL 2023-0 Yes 300mg Take 3 Uni vers 100 mg 5-05 tablets by ity of tablet 15:46: mouth in [place] [address] the Medical morning. Branch losartan 25 2023-0 Yes 25mg Take 1 Univ ers mg tablet 5-05 tablet by ity o f 15:46: mouth in [place] [address] the Medical morning. Branch metformin 2023-0 Yes 1000mg Take 2 Univ ers ER 500 mg 5-05 tablets by ity of 24 hr 15:46: mouth in [place] tablet the Medical morning Branch and 2 tablets in the evening. atorvastati 2023-0 Yes 40mg Take 1 Univ ers n 40 mg 5-05 tablet by ity of tablet 15:46: mouth at [place] [address] bedtime. Medical Branch allopurinoL 2023-0 Yes 300mg Take 3 Uni vers 100 mg 5-05 tablets by ity of tablet 15:46: mouth in [place] [address] the Medical morning. Branch losartan 25 2023-0 Yes 25mg Take 1 Univ ers mg tablet 5-05 tablet by ity o f 15:46: mouth in [place] [address] the Medical morning. Branch metformin 2023-0 Yes 1000mg Take 2 Univ ers ER 500 mg 5-05 tablets by ity of 24 hr 15:46: mouth in [place] tablet 27 the Medical morning Branch and 2 tablets in the evening. atorvastati 2023-0 Yes 40mg Take 1 Univ ers n 40 mg 5-05 tablet by ity of tablet 15:46: mouth at [place] [address] bedtime. Medical Branch allopurinoL 2023-0 Yes 300mg Take 3 Uni vers 100 mg 5-05 tablets by ity of tablet 15:46: mouth in [place] [address] the Medical morning. Branch losartan 25 2023-0 Yes 25mg Take 1 Univ ers mg tablet 5-05 tablet by ity o f 15:46: mouth in [place] [address] the Medical morning. Branch metformin 2023-0 Yes 1000mg Take 2 Univ ers ER 500 mg 5-05 tablets by ity of 24 hr 15:46: mouth in [place] tablet the Medical morning Branch and 2 tablets in the evening. atorvastati 2023-0 Yes 40mg Take 1 Univ ers n 40 mg 5-05 tablet by ity of tablet 15:46: mouth at [place] [address] bedtime. Medical Branch allopurinoL 2023-0 Yes 300mg Take 3 Uni vers 100 mg 5-05 tablets by ity of tablet 15:46: mouth in [place] [address] the Medical morning. Branch losartan 25 2023-0 Yes 25mg Take 1 Univ ers mg tablet 5-05 tablet by ity o f 15:46: mouth in [place] [address] the Medical morning. Branch metformin 2023-0 Yes 1000mg Take 2 Univ ers ER 500 mg 5-05 tablets by ity of 24 hr 15:46: mouth in [place] tablet the Medical morning Branch and 2 tablets in the evening. atorvastati 2023-0 Yes 40mg Take 1 Univ ers n 40 mg 5-05 tablet by ity of tablet 15:46: mouth at [place] [address] bedtime. Medical Branch allopurinoL 2023-0 Yes 300mg Take 3 Uni vers 100 mg 5-05 tablets by ity of tablet 15:46: mouth in [place] [address] the Medical morning. Branch losartan 25 2023-0 Yes 25mg Take 1 Univ ers mg tablet 5-05 tablet by ity o f 15:46: mouth in [place] [address] the Medical morning. Branch metformin 2023-0 Yes 1000mg Take 2 Univ ers ER 500 mg 5-05 tablets by ity of 24 hr 15:46: mouth in [place] tablet the Medical morning Branch and 2 tablets in the evening. atorvastati 2023-0 Yes 40mg Take 1 Univ ers n 40 mg 5-05 tablet by ity of tablet 15:46: mouth at [place] [address] bedtime. Medical Branch allopurinoL 2022-0 Yes 300mg Take 3 Uni vers 100 mg 5-05 tablets by ity of tablet 15:46: mouth in [place] [address] the Medical morning. Branch losartan 25 2022-0 Yes 25mg Take 1 Univ ers mg tablet 5-05 tablet by ity o f 15:46: mouth in [place] [address] the Medical morning. Branch fenofibrate 2022-0 2022- No 54mg Take 54 mg Univers 54 mg 5-05 05-05 by mouth ity of tablet 12:48: 00:00 daily. [place] 31 :00 Medical Branch glipiZIDE 2022-2022- No 10mg Take 10 mg U nivers 10 mg 5-05 05-05 by mouth ity of tablet 12:48: 00:00 daily. [place] 31 :00 [facility] Branch morpHINE (2 Yes 2mg 2 mg, Slow Univers mg/mL) 5-05 IV Push, ity of injection 2 06:49: Q4HPRN, [place] mg 18 Starting Medical on Wed Branch 03/19/23 at 0149, Until Discontinu ed, Routine, Pain (scale 7-10) HYDROcodone 2022-0 Yes 1{tbl} 1 tablet, Univers -acetaminop 5-05 Oral, ity of hen (NORCO) 06:49: Q6HPRN, [place] 10-325 mg 00 Starting Medica l tablet 1 on Wed Branch tablet 03/19/23 at 0149, Until Discontinu ed, Routine, Pain (scale 4-6) ibuprofen 2022-0 Yes [id number] 600mg Take 1 Univers 600 mg 5-05 tablet by ity of tablet 00:00: mouth [place] 00 every 6 Medical (six) Branch hours as needed (Severe pain). ibuprofen 2022-0 Yes [id number] 600mg Take 1 Univers 600 mg 5-05 tablet by ity of tablet 00:00: mouth [place] 00 every 6 Medical (six) Branch hours as needed (Severe pain). ibuprofen 2022-0 Yes [id number] 600mg Take 1 Univers 600 mg 5-05 tablet by ity of tablet 00:00: mouth [place] 00 every 6 Medical (six) Branch hours as needed (Severe pain). ibuprofen 2023-0 Yes [id number] 600mg Take 1 Univers 600 mg 5-05 tablet by ity of tablet 00:00: mouth [place] 00 every 6 Medical (six) Branch hours as needed (Severe pain). ibuprofen 2023-0 Yes [id number] 600mg Take 1 Univers 600 mg 5-05 tablet by ity of tablet 00:00: mouth [place] 00 every 6 Medical (six) Branch hours as needed (Severe pain). ibuprofen 2023-0 Yes [id number] 600mg Take 1 Univers 600 mg 5-05 tablet by ity of tablet 00:00: mouth [place] 00 every 6 Medical (six) Branch hours as needed (Severe pain). ibuprofen 2023-0 Yes [id number] 600mg Take 1 Univers 600 mg 5-05 tablet by ity of tablet 00:00: mouth [place] 00 every 6 Medical (six) Branch hours as needed (Severe pain). ibuprofen 2023-0 Yes [id number] 600mg Take 1 Univers 600 mg 5-05 tablet by ity of tablet 00:00: mouth [place] 00 every 6 Medical (six) Branch hours as needed (Severe pain). ibuprofen 2023-0 Yes [id number] 600mg Take 1 Univers 600 mg 5-05 tablet by ity of tablet 00:00: mouth [place] 00 every 6 Medical (six) Branch hours as needed (Severe pain). ibuprofen 2023-0 Yes [id number] 600mg Take 1 Univers 600 mg 5-05 tablet by ity of tablet 00:00: mouth [place] 00 every 6 Medical (six) Branch hours as needed (Severe pain). ibuprofen 2023-0 Yes [id number] 600mg Take 1 Univers 600 mg 5-05 tablet by ity of tablet 00:00: mouth [place] 00 every 6 Medical (six) Branch hours as needed (Severe pain). ibuprofen 2023-0 Yes [id number] 600mg Take 1 Univers 600 mg 5-05 tablet by ity of tablet 00:00: mouth [place] 00 every 6 Medical (six) Branch hours as needed (Severe pain). ibuprofen 2023-0 Yes [id number] 600mg Take 1 Univers 600 mg 5-05 tablet by ity of tablet 00:00: mouth [place] 00 every 6 Medical (six) Branch hours as needed (Severe pain). ibuprofen 2023-0 Yes [id number] 600mg Take 1 Univers 600 mg 5-05 tablet by ity of tablet 00:00: mouth [place] 00 every 6 Medical (six) Branch hours as needed (Severe pain). atorvastati Yes 40mg 40 mg, Univ ers n (LIPITOR) 03-18 Oral, QHS, it y of tablet 40 02:00: First dose [place] mg 00 on Wed03/17/23 at Branch 2100, Until Discontinu ed, Routine morpHINE (2 2022-2022- No 2mg 2 mg, Slow Univers mg/mL) 03-18-04 IV Push, ity of injection 2 00:45: 00:01 ONCE, 1 [place] mg 00 :00 dose, On Medical Wed03/17/23 Branch at 1945, Routine lactated 2022-2022- No 1000mL at 150 [facility] ers ringers IV 03-18 05-04 mL/hr, ity of infusion 00:00: 14:59 1,000 mL, [place] 1,000 mL 00 :10 IV Medical Infusion, Branch CONTINUOUS , Starting on Wed03/17/23 at 1900, Until Wed03/18/23 at 0959, Routine morpHINE (2 2022- No 4mg 4 mg, Slow Univers mg/mL) 03-17 IV Push, ity of injection 4 23:54: 23:41 Q4HPRN, [place] mg 56 :13 Starting Medical on Wed03/17/23 at 1854, Until Wed03/18/23 at 1841, Routine, Pain (scale 7-10) losartan Yes 25mg 25 mg, Univers (COZAAR) 03-17 Oral, ity of tablet 25 14:00: DAILY, [place] mg 00 First dose Medical on Wed [place] 03/17/23 at 0900, Until Discontinu ed, Routine aspirin 0 Yes 81mg 81 mg, Univers chewable 03-17 Oral, ity of tablet 81 14:00: DAILY, [place] mg 00 First dose Medical on Wed [place] 03/17/23 at 0900, Until Discontinu ed, Routine amLODIPine 0 Yes 10mg 10 mg, Unive rs (NORVASC) 03-17 Oral, ity of tablet 10 14:00: DAILY, [place] mg 00 First dose Medical on Wed [place] 03/17/23 at 0900, Until Discontinu ed, Routine allopurinoL Yes 300mg 300 mg, Un sparkle (ZYLOPRIM) 03-17 Oral, ity of tablet 300 14:00: DAILY, [place] mg 00 First dose Medical on Wed03/17/23 at 0900, Until Discontinu ed, Routine carvediloL Yes 25mg 25 mg, Unive rs (COREG) 03-17 Oral, BID ity of tablet 25 13:00: MEALS, [place] mg 00 First dose Medical on Wed03/17/23 at 0800, Until Discontinu ed, Routine levalbutero Yes .63mg 0.63 mg, U nivers l (XOPENEX) 03-17 Inhalation it y of nebulizer 01:00: , TID, [place] solution 00 First dose Medic al 0.63 mg on Wed03/16/23 at 2000, Until Discontinu ed, Routine lactated 2022- No 1000mL at 125 [facility] ers ringers IV 03-17 05-03 mL/hr, ity of infusion 00:45: 23:53 1,000 mL, [place] 1,000 mL 00 :44 IV Medical Infusion, Branch CONTINUOUS , Starting on Wed03/16/23 at 1945, Until Wed03/17/23 at 1853, Routine ipratropium Yes .5mg 0.5 mg, Uni vers (ATROVENT) 03-17 Inhalation ity of 0.02 % 00:44: , Q4HPRN, [place] nebulizer 03 Starting Medica l solution on Wed 0.5 mg 03/16/23 at 1944, Until Discontinu ed, Routine, Wheezing, Shortness of Breath ondansetron Yes 4mg 4 mg, Slow Univers (ZOFRAN 03-17 IV Push, ity of (PF)) 00:43: Q6HPRN, [place] injection 4 11 Starting Medi yoni mg on Wed03/16/23 at 1943, Until Discontinu ed, Routine, Nausea and Vomiting (N/V) morpHINE (2 2022- No 2mg 2 mg, Slow Univers mg/mL) 03-17 05-03 IV Push, ity of injection 2 00:42: 23:55 Q4HPRN, [place] mg 58 :11 Starting Medical on [facility] 03/16/23 at 1942, Until Wed03/17/23 at 1855, Routine, Pain (scale 7-10) HYDROcodone 2022- No 1{tbl} 1 tablet, Univers -acetaminop 03-17 05-05 Oral, ity of hen (NORCO 00:42: 00:41 Q6HPRN, [place] 5) 5-325 mg 54 :54 Starting Medi yoni tablet 1 on [facility] tablet 03/16/23 at 1942, Until Steph 03/18/23 at 1941, Routine, Pain (scale 4-6) Sliding Yes Subcutaneo Univ ers Scale 5-02 us, TID ity of Insulin - 22:00: MEALS+HS, [place] Lispro 00 First dose Medical (HumaLOG) on [facility] 03/16/23 at 1700, Until Discontinu ed, Routine enoxaparin Yes 40mg 40 mg, Unive rs (LOVENOX) 03-16 Subcutaneo ity of injection 22:00: us, DAILY, [place] 40 mg 00 First dose Medical on [facility] 03/16/23 at 1700, Until Discontinu ed, Routine glucagon Yes 1mg 1 mg, Univers (GLUCAGEN 03-16 Intramuscu ity of DIAGNOSTIC 19:15: lar, PRN, [place] KIT) 21 Starting Medical injection 1 on [facility] mg 03/16/23 at 1415, Until Discontinu ed, DERICK, Blood Glucose < or = 70 mg/dL and patient is NPO, unable to swallow or has mental changes. dextrose 50 Yes 25mL 25 mL, Univ ers % in water 03-16 Slow IV ity of (D50W) 19:15: Push, PRN, [place] injection 21 Starting Medica l 25 mL on [facility] 03/16/23 at 1415, Until Discontinu ed, DERICK, Blood Glucose < or = 70 mg/dL and patient is NPO, unable to swallow or has mental status changes. acetaminoph Yes 650mg 650 mg, Un sparkle en 03-16 Oral, ity of (TYLENOL) 19:15: Q6HPRN, [place] tablet 650 21 Starting Medic al mg on [facility] Branch 03/16/23 at 1415, Until Discontinu ed, Routine, Pain (scale 1-3) albuterol 2022- No 2.5mg 2.5 mg, Uni vers (PROVENTIL) 03-16 Inhalation i ty of 2.5 mg /3 18:15: 18:08 , ONCE, 1 [place] mL (0.083 00 :00 dose, On Medica l %) [facility] 03/16/23 Branch nebulizer at 1315, solution STAT 2.5 mg iopamidol 2022- No [id number] 94mL 94 mL, U nivers (ISOVUE 03-16 Intravenou ity o f 370-500 mL) 17:05: 17:30 s, ONCE, 1 [place] injection 00 :00 dose, On Medica l 94 mL [facility] 03/16/23 Branch at 1230, Routine NaCl 0.9% 2022- No 500mL at 999 Univ ers (NS) bolus 03-16 mL/hr, 500 it y of infusion 16:00: 18:42 mL, IV [place] 500 mL 00 :00 Infusion, Medical ONCE, 1 Branch dose, On [facility] 03/16/23 at 1100, DERICK TAKE 2021-11 No unit TABLET 2-16 DAILY. 00:00: 00 TAKE 2021-11 No TABLET 2-16 DAILY. 00:00: 00 APPLY 2 GM 2021-11 No 3unit ON THE SKIN 2-16 EVERY 8 00:00: HOURS 00 NEEDED APPLY TO AFFECTED AREAS TAKE 2021-11 No 4unit TABLET 2-16 TWICE 00:00: DAILY. 00 TAKE 2021-11 No CAPSULE BY 2-16 MOUTH ONCE 00:00: DAILY 00 TAKE 2021-11 No 1unit TABLET 2-16 DAILY. 00:00: 00 TAKE 2021-11 No TABLET 2-16 DAILY. 00:00: 00 GABAPENTIN 2021-11 No 300 300 MG 2-16 CAPSULE 00:00: 00 Dose 2021-11 No 10 Unknown 2-16 00:00: 00 NITROFURANT 2021-11 No 100 OIN 2-16 MONO-MCR 00:00: 100 MG 00 OMEPRAZOLE 2022-[address] 40 MG 2-16 CAPSULE 00:00: 00 LANTUS 2-1 No SOLOSTAR 2-16 100 UNIT/ML 00:00: 00 CELECOXIB 2022-1 No 200 200 MG 2-16 CAPSULE 00:00: 00 TAKE 1 2021-1 No 20 CAPSULE BY 2-16 MOUTH TWICE 00:00: A DAY 00 TAKE 1 2021-1 No 500 TABLET BY 2-16 MOUTH THREE 00:00: TIMES A DAY 00 TAKE 1 2-1 No 500 TABLET BY 2-16 MOUTH TWICE 00:00: A DAY 00 TAKE 1 2-0 No TABLET BY 9-23 MOUTH TWICE 00:00: A DAY 00 TAKE 1 2-0 No TABLET BY 9-23 MOUTH TWICE 00:00: A DAY 00 TAKE 1 2-0 No TABLET BY 9-23 MOUTH TWICE 00:00: A DAY 00 TAKE 1 2-0 No TABLET BY 9-23 MOUTH TWICE 00:00: A DAY 00 TAKE 1 2-0 No TABLET BY 9-23 MOUTH TWICE 00:00: A DAY 00 TAKE 1 2-0 No TABLET BY 9-23 MOUTH TWICE 00:00: A DAY 00 &lt 2022-0 No 20 8- 00:00: 00 &lt 2022-0 No 25 8 00:00: 00 &lt 2022-0 No 15 8 00:00: 00 &lt 2022-0 No 20 8 00:00: 00 &lt 2022-0 No 25 8 00:00: 00 &lt 2022-0 No 15 8 00:00: 00 &lt 2022-0 No 20 8 00:00: 00 &lt 2022-0 No 25 8- 00:00: 00 &lt 2022-0 No 15 8 00:00: 00 &lt 2022-0 No 20 06-26 00:00: 00 &lt 2022-0 No 25 06-26 00:00: 00 &lt 2022-0 No 15 06-26 00:00: 00 FUROSEMIDE 2022-0 No 20 MG 8-12 TABLET 00:00: 00 Dose 2022-0 No Unknown 06-26 00:00: 00 Dose 2022-0 No Unknown 06-26 00:00: 00 &lt 2022-0 No 20 8-12 00:00: 00 &lt 2022-0 No 25 8- 00:00: 00 &lt 2022-0 No 15 8- 00:00: 00 &lt 2022-0 No 8- [...] 06-18 00:00: 00 &lt 2022-0 No 20 8 00:00: 00 TAKE 1 2022-0 No TABLET BY 8-04 MOUTH EVERY 00:00: DAY 00 TAKE 1 2022-0 No TABLET BY 8-04 MOUTH TWICE 00:00: A DAY 00 Dose 2022-0 No 40 Unknown 06-18 00:00: 00 Dose 2022-0 No Unknown 8 00:00: 00 &lt 2022-0 No 20 06-18 [...] BY 8-04 MOUTH EVERY 00:00: DAY 00 Dose 2022-0 No 1 Unknown 8 00:00: 00 Dose 2022-0 No Unknown 8 00:00: 00 MUPIROCIN 2022-0 No 2% OINTMENT 06-18 00:00: 00 TAKE 2 2022-0 No TABLETS BY 8- MOUTH EVERY 00:00: DAY 00 TAKE 1 2022-0 No TABLET BY 8- MOUTH EVERY 00:00: DAY 00 TAKE 1 2022-0 No TABLET BY 8- MOUTH TWICE 00:00: A DAY 00 Dose 2022-0 No 40 Unknown 06-18 00:00: 00 Dose 2022-0 No Unknown 06-18 00:00: 00 &lt 2022-0 No 20 06-18 00:00: 00 TAKE 1 2022-0 No 10 TABLET BY 8 MOUTH EVERY 00:00: DAY 00 TAKE 1 2022-0 No TABLET BY 06-18 MOUTH TWICE 00:00: A DAY 00 Dose 2022-0 No 40 Unknown 06-18 00:00: 00 Dose 2022-0 No Unknown 06-18 00:00: 00 &lt 2022-0 No 20 06-18 00:00: 00 TAKE 1 2022-0 No TABLET BY 8- MOUTH EVERY 00:00: DAY 00 &lt 2022-0 No 40 7 00:00: 00 &lt 2022-0 No 40 7 00:00: 00 &lt 2022-0 No 40 7 00:00: 00 &lt 2022-0 No 40 7 00:00: 00 &lt 2022-0 No 40 7 00:00: 00 &lt 2022-0 No 40 7 00:00: 00 &lt 2022-0 No 40 7 00:00: 00 TAKE 1 2022-0 No TABLET BY 7- MOUTH TWICE 00:00: A DAY 00 &lt 2022-0 No 7- 00:00: 00 TAKE 1 2022-0 No TABLET BY 7- MOUTH TWICE 00:00: A DAY [address] 1 MG 2022-0 No 15 BELOW THE - SKIN WEEKLY 00:00: 00 &lt 2022-0 No 20 7 00:00: 00 Dose 2022-0 No Unknown 06-04 00:00: 00 &lt 2022-0 No 20 7- 00:00: 00 TAKE 1 2022-0 No 40 [...] 1 MG 2022-0 No 15 BELOW THE 06-04 SKIN WEEKLY 00:00: 00 &lt 2022-0 No [...] AT 00 BEDTIME Dose 2022-0 No Unknown 7-18 00:00: 00 &lt 2022-0 No 7-16 00:00: [...] No Unknown 4-12 00:00: 00 lidocaine 5 2-0 No 1% [...] Unknown 4-11 00:00: 00 Dose 2-0 No 500 Unknown 4-11 00:00: 00 Dose 2-0 No Unknown 4-11 00:00: 00 Dose 2022-0 No Unknown 4-11 00:00: 00 Dose 2-0 No Unknown 4-11 00:00: 00 Dose 2-0 No Unknown 4-11 00:00: 00 Dose 2-0 No Unknown 4-11 00:00: 00 Dose 2-0 No Unknown 4-11 00:00: 00 lidocaine 5 [...] 4-11 00:00: 00 Dose 2-0 No Unknown 3-15 [...] subcutaneou 00 s pen injector losartan 50 2021-0 No 1mg mg tablet 3-15 00:00: [...] mL 00:00: subcutaneou 00 s pen injector amlodipine 2-0 No 1mg 10 mg 3-15 tablet 00:00: 00 Farxiga 10 2022-0 No 1mg mg tablet 3-15 00:00: 00 Dose 2022-0 No Unknown 3-15 00:00: 00 Dose 2022-0 No Unknown 3-15 00:00: 00 atorvastati 2022-0 No 1mg n 40 mg 3-15 tablet [...] subcutaneou 00 s pen injector losartan 50 2021-0 No 1mg mg tablet 3-15 00:00: [...] 2-0 No Unknown 3-15 00:00: 00 Trulicity 2022-0 [...] hr 00:00: tablet,exte 00 nded release Dose 2-0 No Unknown 3-15 00:00: 00 metformin 2022-0 [...] 2022-0 No Unknown 3-15 00:00: 00 indomethaci 1-1 No 1mg n 50 mg 2-22 capsule 00:00: 00 indomethaci 1-1 No 1mg n 50 mg 2-22 capsule 00:00: 00 indomethaci 1-1 No 1mg n 50 mg 2-22 capsule 00:00: 00 indomethaci 1-1 No 1mg n 50 mg 2-22 capsule 00:00: 00 Dose 1-1 No Unknown 2-22 00:00: 00 indomethaci 2021-1 No 1mg n 50 mg 2-22 capsule 00:00: 00 indomethaci 2020- No 1mg n 50 mg 2-22 capsule 00:00: 00 indomethaci 2020- No 1mg n 50 mg 2-22 capsule 00:00: 00 indomethaci 2020- No 1mg n 50 mg 2-22 capsule 00:00: 00 Dose 2020- No Unknown 1-10 00:00: 00 Dose 2020- No Unknown 1-10 00:00: 00 Dose 2020- No Unknown 1-10 00:00: 00 Dose 2020- No Unknown 1-10 00:00: 00 Dose 2020- No Unknown 1-10 00:00: 00 Dose 2020- No Unknown 1-10 00:00: 00 Dose 2020- No Unknown 1-10 00:00: 00 Dose 2020- No Unknown 1-10 00:00: 00 Dose 2020- No Unknown 1-10 00:00: 00 Dose 2020-11 No Unknown 0-27 00:00: 00 Dose 2020-11 No Unknown 0-27 00:00: 00 losartan 50 2020-11 No 1mg mg tablet 0-27 00:00: 00 metformin 2020-11 No 1mg ER 500 mg 0-27 24 hr 00:00: tablet,exte 00 nded release Dose 2020-11 No Unknown 0-27 00:00: 00 Dose 2020-11 No Unknown 0-27 00:00: 00 losartan 50 2020-11 No 1mg mg tablet 0-27 00:00: 00 metformin 2020- No 1mg ER 500 mg 0-27 24 hr 00:00: tablet,exte 00 nded release Dose 2020-11 No Unknown 0-27 00:00: 00 Dose 2020-11 No Unknown 0-27 00:00: 00 losartan 50 2020-11 No 1mg mg tablet 0-27 00:00: 00 metformin 2020- No 1mg ER 500 mg 0-27 24 hr 00:00: tablet,exte 00 nded release Dose 2020-11 No Unknown 0-27 00:00: 00 Dose 2020- No Unknown 0-27 00:00: 00 losartan 50 2020-11 No 1mg mg tablet 0-27 00:00: 00 metformin 2020-1 No 1mg ER 500 mg 0-27 24 hr 00:00: tablet,exte 00 nded release Dose 2020-11 No Unknown 0-27 00:00: 00 Dose 2020-1 [...] hr 00:00: tablet,exte 00 nded release Dose 2020-11 No Unknown 0-27 00:00: 00 Dose 2020- No Unknown 0-27 00:00: 00 losartan 50 1 No 1mg mg tablet 0-27 00:00: 00 metformin 2020-1 No 1mg ER 500 mg 0-27 24 hr 00:00: tablet,exte 00 nded release Dose 2020-11 No Unknown 0-27 00:00: 00 Dose 1 No Unknown 0-27 00:00: 00 losartan 50 1 No 1mg mg tablet 0-27 00:00: 00 metformin 2020-1 No 1mg ER 500 mg 0-27 24 hr 00:00: tablet,exte 00 nded release Dose 2020-11 No Unknown 0-27 00:00: 00 Dose 2020-1 No Unknown 0-27 00:00: 00 losartan 50 2020-1 No 1mg mg tablet 0-27 00:00: 00 metformin 2020-1 No 1mg ER 500 mg 0-27 24 hr 00:00: tablet,exte 00 nded release mupirocin 2 1-0 No 1% % topical 9-28 ointment 00:00: 00 Bactrim DS 1-0 No 1mg 800 mg-160 9-28 mg tablet 00:00: 00 mupirocin 2 1-0 No 1% % topical 9-28 ointment 00:00: 00 Bactrim DS 1-0 No 1mg 800 mg-160 9-28 mg tablet 00:00: 00 mupirocin 2 1-0 No 1% % topical 9-28 ointment 00:00: [...] 00 fenofibrate 2021-0 No 1mg 54 mg - tablet 00:00: 00 lisinopril 2021-0 No 2mg 20 mg 9- tablet 00:00: 00 naproxen 2021-0 No 1mg 500 mg - tablet 00:00: 00 Dose 2021-0 No Unknown [...] 1mg 10 mg 9- tablet 00:00: 00 lisinopril 2021-0 No 2mg 20 mg 9- tablet 00:00: 00 Dose 2021-0 No Unknown 07-16 00:00: 00 Dose 2021-0 No Unknown 07-16 00:00: 00 Dose 2021-0 No 1 Unknown 07-16 00:00: 00 Dose 2021-0 No 1 Unknown 07-16 00:00: 00 Dose 2021-0 No [...] 00 naproxen 2021-0 No 1mg 500 mg 9-01 tablet 00:00: 00 Dose 2021-0 No Unknown [...] 00 amlodipine 2021-0 No 1mg 10 mg - tablet 00:00: 00 fenofibrate 2021-0 No 1mg 54 mg - tablet 00:00: 00 lisinopril 2021-0 No 2mg 20 mg - tablet 00:00: 00 naproxen 2021-0 No 1mg 500 mg - tablet 00:00: 00 Dose 2021-0 No Unknown [...] 1mg 600 mg 4-29 tablet 00:00: 00 Dose 2021-0 No Unknown 4-29 00:00: 00 ibuprofen 2021-0 No 1mg 600 [...] 1% % topical 1-14 gel 00:00: 00 Dose 2021-0 No Unknown 1-14 00:00: 00 Voltaren 1 2021-0 No 1% % topical 1-14 gel 00:00: 00 Voltaren 1 2021-0 No 1% % topical 1-14 gel 00:00: 00 Voltaren 1 2021-0 No 1% % topical 1-14 gel 00:00: 00 Voltaren 1 2021-0 No 1% % topical 1-14 gel 00:00: 00 lisinopril 2019-1 No 2mg 20 mg 2-22 tablet 00:00: 00 lisinopril 2019- No 2mg 20 mg 2-22 tablet 00:00: 00 lisinopril 2019- No 2mg 20 mg 2-22 tablet 00:00: 00 lisinopril 2019- No 2mg 20 mg 2-22 tablet 00:00: 00 lisinopril 2019-1 No 2mg 20 mg 2-22 tablet 00:00: 00 lisinopril 2019-1 No 2mg 20 mg 2-22 tablet 00:00: 00 lisinopril 2019-1 No 2mg 20 mg 2-22 tablet 00:00: 00 lisinopril 2019- No 2mg 20 mg 2-22 tablet 00:00: 00 lisinopril 2019- No 2mg 20 mg 2-22 tablet 00:00: 00 AMLODIPINE 2019- Yes [id number] TAKE 1 U nivers 10 mg 0-07 TABLET BY ity of tablet 00:00: MOUTH [place] 00 EVERY DAY [facility] AMLODIPINE 2020-1 Yes [id number] TAKE 1 U nivers 10 mg 0-07 TABLET BY ity of tablet 00:00: MOUTH [place] 00 EVERY DAY [facility] Branch AMLODIPINE 2020-1 Yes [id number] TAKE 1 U nivers 10 mg 0-07 TABLET BY ity of tablet 00:00: MOUTH [place] 00 EVERY DAY [facility] AMLODIPINE 2020-1 Yes [id number] TAKE 1 U nivers 10 mg 0-07 TABLET BY ity of tablet 00:00: MOUTH [place] 00 EVERY DAY Medical [facility] AMLODIPINE 2020-1 Yes [id number] TAKE 1 U nivers 10 mg 0-07 TABLET BY ity of tablet 00:00: MOUTH [place] 00 EVERY DAY [facility] AMLODIPINE 2020-1 Yes [id number] TAKE 1 U nivers 10 mg 0-07 TABLET BY ity of tablet 00:00: MOUTH [place] 00 EVERY DAY Medical Branch AMLODIPINE 2020-1 Yes [id number] TAKE 1 U nivers 10 mg 0-07 TABLET BY ity of tablet 00:00: MOUTH [place] 00 EVERY DAY Medical [facility] AMLODIPINE 2020-1 Yes [id number] TAKE 1 U nivers 10 mg 0-07 TABLET BY ity of tablet 00:00: MOUTH [place] 00 EVERY DAY [facility] Branch AMLODIPINE 2020-1 Yes [id number] TAKE 1 U nivers 10 mg 0-07 TABLET BY ity of tablet 00:00: MOUTH [place] 00 EVERY DAY Medical Branch AMLODIPINE 2020-1 Yes [id number] TAKE 1 U nivers 10 mg 0-07 TABLET BY ity of tablet 00:00: MOUTH [place] 00 EVERY DAY Medical Branch AMLODIPINE 2020-1 Yes [id number] TAKE 1 U nivers 10 mg 0-07 TABLET BY ity of tablet 00:00: MOUTH [place] 00 EVERY DAY [facility] Branch AMLODIPINE 2020-1 Yes [id number] TAKE 1 U nivers 10 mg 0-07 TABLET BY ity of tablet 00:00: MOUTH [place] 00 EVERY DAY Medical Branch AMLODIPINE 2020-1 Yes [id number] TAKE 1 U nivers 10 mg 0-07 TABLET BY ity of tablet 00:00: MOUTH [place] 00 EVERY DAY Medical Branch AMLODIPINE 2020-1 Yes [id number] TAKE 1 U nivers 10 mg 0-07 TABLET BY ity of tablet 00:00: MOUTH [place] 00 EVERY DAY Medical Branch AMLODIPINE 2020-1 Yes [id number] TAKE 1 U nivers 10 mg 0-07 TABLET BY ity of tablet 00:00: MOUTH 00 EVERY DAY [facility] Branch AMLODIPINE 2020-1 Yes [id number] TAKE 1 U nivers 10 mg 0-07 TABLET BY ity of tablet 00:00: MOUTH 00 EVERY DAY [facility] Branch AMLODIPINE 2020-1 Yes [id number] TAKE 1 U nivers 10 mg 0-07 TABLET BY ity of tablet 00:00: MOUTH 00 EVERY DAY [facility] Branch AMLODIPINE 2020-1 Yes [id number] TAKE 1 U nivers 10 mg 0-07 TABLET BY ity of tablet 00:00: MOUTH 00 EVERY DAY [facility] Branch AMLODIPINE 2020-1 Yes [id number] TAKE 1 U nivers 10 mg 0-07 TABLET BY ity of tablet 00:00: MOUTH 00 EVERY DAY [facility] Branch AMLODIPINE 2020-1 Yes [id number] TAKE 1 U nivers 10 mg 0-07 TABLET BY ity of tablet 00:00: MOUTH [place] 00 EVERY DAY Medical Branch AMLODIPINE 2020-1 Yes [id number] TAKE 1 U nivers 10 mg 0-07 TABLET BY ity of tablet 00:00: MOUTH 00 EVERY DAY [facility] Branch AMLODIPINE 2020-1 Yes [id number] TAKE 1 U nivers 10 mg 0-07 TABLET BY ity of tablet 00:00: [facility] 00 EVERY DAY Medical Branch AMLODIPINE 2020-1 Yes [id number] TAKE 1 U nivers 10 mg 0-07 TABLET BY ity of tablet 00:00: [facility] 00 EVERY DAY Medical Branch AMLODIPINE 2020-1 Yes [id number] TAKE 1 U nivers 10 mg 0-07 TABLET BY ity of tablet 00:00: [facility] 00 EVERY DAY Medical Branch AMLODIPINE 2020-1 Yes [id number] TAKE 1 U nivers 10 mg 0-07 TABLET BY ity of tablet 00:00: MOUTH 00 EVERY DAY Medical Branch AMLODIPINE 2020-1 Yes [id number] TAKE 1 U nivers 10 mg 0-07 TABLET BY ity of tablet 00:00: MOUTH 00 EVERY DAY Medical Branch AMLODIPINE 2020-1 Yes [id number] TAKE 1 U nivers 10 mg 0-07 TABLET BY ity of tablet 00:00: MOUTH [place] 00 EVERY DAY Medical Branch AMLODIPINE 2020-1 Yes [id number] TAKE 1 U nivers 10 mg 0-07 TABLET BY ity of tablet 00:00: MOUTH [place] 00 EVERY DAY Medical Branch AMLODIPINE 2019- Yes [id number] TAKE 1 U nivers 10 mg 0-07 TABLET BY ity of tablet 00:00: MOUTH [place] 00 EVERY DAY Medical Branch AMLODIPINE 2019- Yes [id number] TAKE 1 U nivers 10 mg 0-07 TABLET BY ity of tablet 00:00: MOUTH [place] 00 EVERY DAY Medical Branch AMLODIPINE 2019- Yes [id number] TAKE 1 U nivers 10 mg 0-07 TABLET BY ity of tablet 00:00: MOUTH [place] 00 EVERY DAY Medical Branch metformin 2019-11 Yes 500mg Take 500 Uni vers ER 500 mg 0-06 mg by ity of 24 hr 19:02: mouth [place] tablet 10 daily with Medical breakfast. Branch fenofibrate 2019-11 Yes 54mg Take 54 mg [facility] 54 mg 0-06 by mouth ity of tablet 19:02: daily. [place] [address] Medical Branch atorvastati 2019-11 Yes 40mg Take 40 mg Univers n 40 mg 0-06 by mouth ity of tablet 19:02: at [place] [address] bedtime. Medical Branch allopurinoL 2019-11 Yes 300mg Take 300 U nivers 100 mg 0-06 mg by ity of tablet 19:02: mouth [place] 10 daily. Medical Branch glipiZIDE 2019-11 Yes 10mg Take 10 mg Un sparkle 10 mg 0-06 by mouth ity of tablet 19:02: daily. [address] Branch metformin 2019-11 Yes 500mg Take 500 Uni vers ER 500 mg 0-06 mg by ity of 24 hr 19:02: mouth [place] tablet 10 daily with Medical breakfast. Branch fenofibrate 2019-11 Yes 54mg Take 54 mg Univers 54 mg 0-06 by mouth ity of tablet 19:02: daily. [place] [address] Medical Branch atorvastati 2019-11 Yes 40mg Take 40 mg Univers n 40 mg 0-06 by mouth ity of tablet 19:02: at [place] 10 bedtime. Medical Branch allopurinoL 2019-11 Yes 300mg Take 300 U nivers 100 mg 0-06 mg by ity of tablet 19:02: mouth [place] 10 daily. Medical Branch glipiZIDE 2019-11 Yes 10mg Take 10 mg Un sparkle 10 mg 0-06 by mouth ity of tablet 19:02: daily. [address] metformin 2019-11 Yes 500mg Take 500 Uni vers ER 500 mg 0-06 mg by ity of 24 hr 19:02: mouth [place] tablet 10 daily with Medical breakfast. Branch fenofibrate 2019-11 Yes 54mg Take 54 mg Univers 54 mg 0-06 by mouth ity of tablet 19:02: daily. [place] [address] Medical Branch atorvastati 2019-11 Yes 40mg Take [...] by mouth ity of tablet 19:02: daily. [place] [address] Medical Branch metformin 2019-11 Yes 500mg Take 500 Uni vers ER 500 mg 0-06 mg by ity of 24 hr 19:02: mouth [place] tablet 10 daily with Medical breakfast. Branch fenofibrate 2019-11 Yes 54mg Take 54 mg Univers 54 mg 0-06 by mouth ity of tablet 19:02: daily. [place] [address] Medical Branch atorvastati 2019-11 Yes 40mg Take [...] by mouth ity of tablet 19:02: daily. [place] [address] Medical Branch metformin 2019- Yes 500mg Take 500 Uni vers ER 500 mg 0-06 mg by ity of 24 hr 19:02: mouth [place] tablet 10 daily with Medical breakfast. Branch fenofibrate 2019-11 Yes 54mg Take 54 mg Univers 54 mg 0-06 by mouth ity of tablet 19:02: daily. [place] [address] Medical Branch atorvastati 2019-11 Yes 40mg Take [...] by mouth ity of tablet 19:02: daily. [place] [address] Medical Branch metformin 2019-11 Yes 500mg Take 500 Uni vers ER 500 mg 0-06 mg by ity of 24 hr 19:02: mouth [place] tablet 10 daily with Medical breakfast. Branch fenofibrate 2019-11 Yes 54mg Take 54 mg Univers 54 mg 0-06 by mouth ity of tablet 19:02: daily. [place] [address] Medical Branch atorvastati 2019-11 Yes 40mg Take [...] by mouth ity of tablet 19:02: daily. [place] [address] Medical Branch metformin 2019-11 Yes 500mg Take 500 Uni vers ER 500 mg 0-06 mg by ity of 24 hr 19:02: mouth [place] tablet 10 daily with Medical breakfast. Branch fenofibrate 2019-11 Yes 54mg Take 54 mg Univers 54 mg 0-06 by mouth ity of tablet 19:02: daily. [place] [address] Medical Branch atorvastati 2019-11 Yes 40mg Take 40 mg Univers n 40 mg 0-06 by mouth ity of tablet 19:02: at [place] 10 bedtime. Medical Branch allopurinoL 2019-11 Yes 300mg Take 300 U nivers 100 mg 0-06 mg by ity of tablet 19:02: mouth [place] 10 daily. Medical Branch glipiZIDE 2019-11 Yes 10mg Take 10 mg Un sparkle 10 mg 0-06 by mouth ity of tablet 19:02: daily. [place] [address] Medical Branch metformin 2019-11 Yes 500mg Take 500 Uni vers ER 500 mg 0-06 mg by ity of 24 hr 19:02: mouth [place] tablet 10 daily with Medical breakfast. Branch fenofibrate 2019-11 Yes 54mg Take 54 mg Univers 54 mg 0-06 by mouth ity of tablet 19:02: daily. [place] [address] Medical [place] atorvastati 2019-11 Yes 40mg Take 40 mg Univers n 40 mg 0-06 by mouth ity of tablet 19:02: at [place] 10 bedtime. Medical Branch allopurinoL 2019- Yes 300mg Take 300 U nivers 100 mg 0-06 mg by ity of tablet 19:02: mouth [place] 10 daily. Medical Branch glipiZIDE 2019-11 Yes 10mg Take 10 mg Un sparkle 10 mg 0-06 by mouth ity of tablet 19:02: daily. [address] Branch metformin 2019-11 Yes 500mg Take 500 Uni vers ER 500 mg 0-06 mg by ity of 24 hr 19:02: mouth [place] tablet 10 daily with Medical breakfast. Branch fenofibrate 2019-11 Yes 54mg Take 54 mg Univers 54 mg 0-06 by mouth ity of tablet 19:02: daily. [place] [address] Medical Branch atorvastati 2019-11 Yes 40mg Take 40 mg Univers n 40 mg 0-06 by mouth ity of tablet 19:02: at [place] 10 bedtime. Medical Branch allopurinoL 2019-11 Yes 300mg Take 300 U nivers 100 mg 0-06 mg by ity of tablet 19:02: mouth [place] 10 daily. Medical Branch glipiZIDE 2019-11 Yes 10mg Take 10 mg Un sparkle 10 mg 0-06 by mouth ity of tablet 19:02: daily. [address] metformin 2019-11 Yes 500mg Take 500 Uni vers ER 500 mg 0-06 mg by ity of 24 hr 19:02: mouth [place] tablet 10 daily with Medical breakfast. Branch fenofibrate 2019-11 Yes 54mg Take 54 mg Univers 54 mg 0-06 by mouth ity of tablet 19:02: daily. [address] atorvastati 2019-11 Yes 40mg Take 40 mg Univers n 40 mg 0-06 by mouth ity of tablet 19:02: at [place] 10 bedtime. Medical Branch allopurinoL 2019-11 Yes 300mg Take 300 U nivers 100 mg 0-06 mg by ity of tablet 19:02: mouth [place] 10 daily. [facility] Branch glipiZIDE 2019-11 Yes 10mg Take 10 mg Un sparkle 10 mg 0-06 by mouth ity of tablet 19:02: daily. [address] metformin 2019-11 Yes 500mg Take 500 Uni vers ER 500 mg 0-06 mg by ity of 24 hr 19:02: mouth [place] tablet 10 daily with Medical breakfast. Branch fenofibrate 2019-11 Yes 54mg Take 54 mg Univers 54 mg 0-06 by mouth ity of tablet 19:02: daily. [place] [address] Medical Branch atorvastati 2019- Yes 40mg Take [...] by mouth ity of tablet 19:02: daily. [address] Branch metformin 2019-11 Yes 500mg Take 500 Uni vers ER 500 mg 0-06 mg by ity of 24 hr 19:02: mouth [place] tablet 10 daily with Medical breakfast. Branch fenofibrate 2019-11 Yes 54mg Take 54 mg Univers 54 mg 0-06 by mouth ity of tablet 19:02: daily. [address] atorvastati 2019-11 Yes 40mg Take 40 mg Univers n 40 mg 0-06 by mouth ity of tablet 19:02: at [place] 10 bedtime. Medical Branch allopurinoL 2019- Yes 300mg Take 300 U nivers 100 mg 0-06 mg by ity of tablet 19:02: mouth [place] 10 daily. Medical Branch glipiZIDE 2019-11 Yes 10mg Take 10 mg Un sparkle 10 mg 0-06 by mouth ity of tablet 19:02: daily. [address] metformin 2019-11 Yes 500mg Take 500 Uni vers ER 500 mg 0-06 mg by ity of 24 hr 19:02: mouth [place] tablet 10 daily with Medical breakfast. Branch fenofibrate 2019-11 Yes 54mg Take 54 mg Univers 54 mg 0-06 by mouth ity of tablet 19:02: daily. [address] atorvastati 2019-11 Yes 40mg Take 40 [...] by mouth ity of tablet 19:02: daily. [address] metformin 2019-1 Yes 500mg Take 500 Uni vers ER 500 mg 0-06 mg by ity of 24 hr 19:02: mouth [place] tablet 10 daily with Medical breakfast. Branch fenofibrate 2019-11 Yes 54mg Take 54 mg Univers 54 mg 0-06 by mouth ity of tablet 19:02: daily. [place] [address] Medical Branch atorvastati 2019-11 Yes 40mg Take [...] by mouth ity of tablet 19:02: daily. [place] [address] Medical Branch metformin 2019-11 Yes 500mg Take 500 Uni vers ER 500 mg 0-06 mg by ity of 24 hr 19:02: mouth [place] tablet 10 daily with Medical breakfast. Branch fenofibrate 2019-11 Yes 54mg Take 54 mg Univers 54 mg 0-06 by mouth ity of tablet 19:02: daily. [place] [address] Medical Branch atorvastati 2019-11 Yes 40mg Take [...] by mouth ity of tablet 19:02: daily. [place] [address] Medical [place] metformin 2019-11 Yes 500mg Take 500 Uni vers ER 500 mg 0-06 mg by ity of 24 hr 19:02: mouth [place] tablet 10 daily with Medical breakfast. Branch fenofibrate 2019-11 Yes 54mg Take 54 mg Univers 54 mg 0-06 by mouth ity of tablet 19:02: daily. [place] [address] Medical Branch atorvastati 2019-11 Yes 40mg Take [...] by mouth ity of tablet 19:02: daily. [place] [address] Medical Branch metformin 2019-11 Yes 500mg Take 500 Uni vers ER 500 mg 0-06 mg by ity of 24 hr 19:02: mouth [place] tablet 10 daily with Medical breakfast. Branch fenofibrate 2019-11 Yes 54mg Take 54 mg Univers 54 mg 0-06 by mouth ity of tablet 19:02: daily. [place] [address] Medical Branch atorvastati 2019-11 Yes 40mg Take 40 mg Univers n 40 mg 0-06 by mouth ity of tablet 19:02: at [place] 10 bedtime. Medical Branch allopurinoL 2019-11 Yes 300mg Take 300 U nivers 100 mg 0-06 mg by ity of tablet 19:02: mouth [place] 10 daily. [facility] Branch glipiZIDE 2019-11 Yes 10mg Take 10 mg Un sparkle 10 mg 0-06 by mouth ity of tablet 19:02: daily. [address] metformin 2019-11 Yes 500mg Take 500 Uni vers ER 500 mg 0-06 mg by ity of 24 hr 19:02: mouth [place] tablet 10 daily with Medical breakfast. Branch fenofibrate 2019-11 Yes 54mg Take 54 mg Univers 54 mg 0-06 by mouth ity of tablet 19:02: daily. [address] atorvastati 2019-11 Yes 40mg Take 40 mg Univers n 40 mg 0-06 by mouth ity of tablet 19:02: at [place] 10 bedtime. Medical Branch allopurinoL 2019- Yes 300mg Take 300 U nivers 100 mg 0-06 mg by ity of tablet 19:02: mouth [place] 10 daily. [facility] Branch glipiZIDE 2019-11 Yes 10mg Take 10 mg Un sparkle 10 mg 0-06 by mouth ity of tablet 19:02: daily. [address] metformin 2019-11 Yes 500mg Take 500 Uni vers ER 500 mg 0-06 mg by ity of 24 hr 14:02: mouth [place] tablet 10 daily with Medical breakfast. Branch fenofibrate 2019-11 Yes 54mg Take 54 mg Univers 54 mg 0-06 by mouth ity of tablet 14:02: daily. [address] atorvastati 2019-11 Yes 40mg Take 40 mg Univers n 40 mg 0-06 by mouth ity of tablet 14:02: at [place] 10 bedtime. Medical Branch allopurinoL 2019- Yes 300mg Take 300 U nivers 100 mg 0-06 mg by ity of tablet 14:02: mouth [place] 10 daily. Medical Branch glipiZIDE 2019-11 Yes 10mg Take 10 mg Un sparkle 10 mg 0-06 by mouth ity of tablet 14:02: daily. [place] [address] Medical Branch metformin 2019-11 Yes 500mg Take 500 Uni vers ER 500 mg 0-06 mg by ity of 24 hr 14:02: mouth [place] tablet 10 daily with Medical breakfast. Branch fenofibrate 2019-11 Yes 54mg Take 54 mg [facility] 54 mg 0-06 by mouth ity of tablet 14:02: daily. [place] [address] Medical Branch atorvastati 2019-11 Yes 40mg Take 40 mg Univers n 40 mg 0-06 by mouth ity of tablet 14:02: at [place] 10 bedtime. Medical Branch allopurinoL 2019-11 Yes 300mg Take 300 U nivers 100 mg 0-06 mg by ity of tablet 14:02: mouth [place] 10 daily. Medical Branch glipiZIDE 2019-11 Yes 10mg Take 10 mg Un sparkle 10 mg 0-06 by mouth ity of tablet 14:02: daily. [place] [address] Medical Branch carvediloL 2019-11 Yes [id number] 25mg Take 1 U nivers 25 mg 0-06 tablet by ity of tablet 00:00: mouth 2 [place] 00 (two) Medical times [place] daily with meals. amLODIPine 2019-11 Yes [id number] 10mg Take 1 U nivers 10 mg 0-06 tablet by ity of tablet 00:00: mouth [place] 00 daily. Medical Branch lisinopriL 2019-11 Yes 20mg Take 1 Unive rs (PRINIVIL) 0-06 tablet by ity of 20 mg 00:00: mouth [place] tablet 00 daily. Medical Branch carvediloL 2019-11 Yes [id number] 25mg Take 1 U nivers 25 mg 0-06 tablet by ity of tablet 00:00: mouth 2 [place] 00 (two) Medical times Branch daily with meals. lisinopriL 2019-11 Yes 20mg Take 1 Unive rs (PRINIVIL) 0-06 tablet by ity of 20 mg 00:00: mouth [place] tablet 00 daily. Medical Branch carvediloL 2020-1 Yes [id number] 25mg Take 1 U nivers 25 mg 0-06 tablet by ity of tablet 00:00: mouth 2 [place] 00 (two) Medical times Branch daily with meals. lisinopriL 2019-11 Yes 20mg Take 1 Unive rs (PRINIVIL) 0-06 tablet by ity of 20 mg 00:00: mouth [place] tablet 00 daily. Medical Branch carvediloL 2019-11 Yes [id number] 25mg Take 1 U nivers 25 mg 0-06 tablet by ity of tablet 00:00: mouth 2 [place] 00 (two) Medical times Branch daily with meals. lisinopriL 2019-11 Yes 20mg Take 1 Unive rs (PRINIVIL) 0-06 tablet by ity of 20 mg 00:00: mouth [place] tablet 00 daily. Medical Branch carvediloL 2019-11 Yes [id number] 25mg Take 1 U nivers 25 mg 0-06 tablet by ity of tablet 00:00: mouth 2 [place] (two) Medical times Branch daily with meals. lisinopriL 2019-11 Yes 20mg Take 1 Unive rs (PRINIVIL) 0-06 tablet by ity of 20 mg 00:00: mouth [place] tablet 00 daily. Medical Branch carvediloL 2019-11 Yes [id number] 25mg Take 1 U nivers 25 mg 0-06 tablet by ity of tablet 00:00: mouth 2 [place] (two) Medical times Branch daily with meals. lisinopriL 2019-11 Yes 20mg Take 1 [facility] rs (PRINIVIL) 0-06 tablet by ity of 20 mg 00:00: mouth [place] tablet 00 daily. [facility] carvediloL 2019-11 Yes [id number] 25mg Take 1 U nivers 25 mg 0-06 tablet by ity of tablet 00:00: mouth 2 [place] 00 (two) Medical times Branch daily with meals. lisinopriL 2019-11 Yes 20mg Take 1 [facility] rs (PRINIVIL) 0-06 tablet by ity of 20 mg 00:00: mouth [place] tablet 00 daily. [facility] carvediloL 2019-11 Yes [id number] 25mg Take 1 [facility] nivers 25 mg 0-06 tablet by [facility]y of tablet 00:00: mouth 2 [place] 00 (two) Medical times Branch daily with meals. lisinopriL 2019-11 Yes 20mg Take 1 [facility] rs (PRINIVIL) 0-06 tablet by [facility]y of 20 mg 00:00: mouth [place] tablet 00 daily. [facility] carvediloL 2019-11 Yes [id number] 25mg Take 1 [facility] nivers 25 mg 0-06 tablet by [facility] of tablet 00:00: mouth 2 [place] 00 (two) Medical times Branch daily with meals. lisinopriL 2019-11 Yes 20mg Take 1 [facility] rs (PRINIVIL) 0-06 tablet by [facility] of 20 mg 00:00: mouth [place] tablet 00 daily. [facility] carvediloL 2019-11 Yes [id number] 25mg Take 1 [facility] nivers 25 mg 0-06 tablet by [facility]y of tablet 00:00: mouth 2 [place] 00 (two) Medical times Branch daily with meals. lisinopriL 2019-11 Yes 20mg Take 1 [facility] rs (PRINIVIL) 0-06 tablet by ity of 20 mg 00:00: mouth [place] tablet 00 daily. [facility] carvediloL 2019-11 Yes [id number] 25mg Take 1 [facility] nivers 25 mg 0-06 tablet by [facility]y of tablet 00:00: mouth 2 [place] 00 (two) Medical times Branch daily with meals. lisinopriL 2019-11 Yes 20mg Take 1 [facility] rs (PRINIVIL) 0-06 tablet by ity of 20 mg 00:00: mouth [place] tablet 00 daily. [facility] carvediloL 2019-11 Yes [id number] 25mg Take 1 [facility] nivers 25 mg 0-06 tablet by ity of tablet 00:00: mouth 2 [place] 00 (two) Medical times Branch daily with meals. lisinopriL 2019-11 Yes 20mg Take 1 [facility] rs (PRINIVIL) 0-06 tablet by ity of 20 mg 00:00: mouth [place] tablet 00 daily. [facility] carvediloL 2019-11 Yes [id number] 25mg Take 1 [facility]ivers 25 mg 0-06 tablet by ity of tablet 00:00: mouth 2 [place] 00 (two) Medical times Branch daily with meals. lisinopriL 2019-11 Yes 20mg Take 1 [facility] rs (PRINIVIL) 0-06 tablet by ity of 20 mg 00:00: mouth [place] tablet 00 daily. [facility] carvediloL 2019-11 Yes [id number] 25mg Take 1 [facility] nivers 25 mg 0-06 tablet by ity of tablet 00:00: mouth 2 [place] 00 (two) Medical times Branch daily with meals. lisinopriL 2019-11 Yes 20mg Take 1 [facility] rs (PRINIVIL) 0-06 tablet by ity of 20 mg 00:00: mouth [place] tablet 00 daily. [facility] carvediloL 2019-11 Yes [id number] 25mg Take 1 [facility]ivers 25 mg 0-06 tablet by [facility] of tablet 00:00: mouth 2 [place] (two) Medical times Branch daily with meals. lisinopriL 2019-11 Yes 20mg Take 1 [facility] rs (PRINIVIL) 0-06 tablet by ity of 20 mg 00:00: mouth [place] tablet 00 daily. [facility] carvediloL 2019-11 Yes [id number] 25mg Take 1 [facility] 25 mg 0-06 tablet by [facility] of tablet 00:00: mouth 2 [place] (two) Medical times Branch daily with meals. lisinopriL 2019-11 Yes 20mg Take 1 [facility] rs (PRINIVIL) 0-06 tablet by ity of 20 mg 00:00: mouth [place] tablet 00 daily. [facility] carvediloL 2019-11 Yes [id number] 25mg Take 1 [facility] 25 mg 0-06 tablet by [facility] of tablet 00:00: mouth 2 [place] 00 (two) Medical times Branch daily with meals. lisinopriL 2019-11 Yes 20mg Take 1 [facility] rs (PRINIVIL) 0-06 tablet by ity of 20 mg 00:00: mouth [place] tablet 00 daily. [facility] carvediloL 2019-11 Yes [id number] 25mg Take 1 [facility]ivers 25 mg 0-06 tablet by ity of tablet 00:00: mouth 2 [place] 00 (two) Medical times Branch daily with meals. lisinopriL 2019-11 Yes 20mg Take 1 [facility] rs (PRINIVIL) 0-06 tablet by ity of 20 mg 00:00: mouth [place] tablet 00 daily. [facility] carvediloL 2019-11 Yes [id number] 25mg Take 1 [facility] nivers 25 mg 0-06 tablet by ity of tablet 00:00: mouth 2 [place] 00 (two) Medical times Branch daily with meals. lisinopriL 2019-11 Yes 20mg Take 1 [facility] rs (PRINIVIL) 0-06 tablet by ity of 20 mg 00:00: mouth [place] tablet 00 daily. [facility] carvediloL 2019- Yes [id number] 25mg Take 1 [facility] 25 mg 0-06 tablet by [facility] of tablet 00:00: mouth (two) Medical times Branch daily with meals. carvediloL 2019- Yes [id number] 25mg Take 1 [facility] 25 mg 0-06 tablet by [facility] of tablet 00:00: mouth (two) Medical times Branch daily with meals. carvediloL 2019- Yes [id number] 25mg Take 1 [facility] 25 mg 0-06 tablet by [facility] of tablet 00:00: mouth (two) Medical times Branch daily with meals. carvediloL 2019- Yes [id number] 25mg Take 1 [facility] 25 mg 0-06 tablet by [facility] of tablet 00:00: mouth (two) Medical times Branch daily with meals. carvediloL 2019- Yes [id number] 25mg Take 1 [facility] 25 mg 0-06 tablet by [facility] of tablet 00:00: mouth (two) Medical times Branch daily with meals. carvediloL 2019-11 Yes [id number] 25mg Take 1 [facility] 25 mg 0-06 tablet by [facility] of tablet 00:00: mouth (two) Medical times Branch daily with meals. carvediloL 2019-11 Yes [id number] 25mg Take 1 [facility] 25 mg 0-06 tablet by [facility] of tablet 00:00: mouth (two) Medical times Branch daily with meals. carvediloL 2019- Yes [id number] 25mg Take 1 [facility] 25 mg 0-06 tablet by it[facility] of tablet 00:00: mouth [place] (two) Medical times Branch daily with meals. carvediloL 2019- Yes [id number] 25mg Take 1 [facility] 25 mg 0-06 tablet by [facility] of tablet 00:00: mouth [place] (two) Medical times Branch daily with meals. carvediloL 2019- Yes [id number] 25mg Take 1 [facility] 25 mg 0-06 tablet by [facility]y of tablet 00:00: mouth 2 (two) Medical times Branch daily with meals. carvediloL 2019- Yes [id number] 25mg Take 1 [facility] 25 mg 0-06 tablet by [facility] of tablet 00:00: mouth 2 (two) Medical times Branch daily with meals. carvediloL 2019-11 Yes [id number] 25mg Take 1 [facility] 25 mg 0-06 tablet by [facility] of tablet 00:00: mouth (two) Medical times Branch daily with meals. carvediloL 2019-11 Yes [id number] 25mg Take 1 [facility] 25 mg 0-06 tablet by [facility] of tablet 00:00: mouth (two) Medical times Branch daily with meals. carvediloL 2019-11 Yes [id number] 25mg Take 1 [facility] 25 mg 0-06 tablet by [facility] of tablet 00:00: mouth (two) Medical times Branch daily with meals. carvediloL 2019-11 Yes [id number] 25mg Take 1 [facility] 25 mg 0-06 tablet by [facility] of tablet 00:00: mouth (two) Medical times Branch daily with meals. amLODIPine 2019-11 Yes [id number] 10mg Take 1 [facility] 10 mg 0-06 tablet by [facility] of tablet 00:00: mouth [place] 00 daily. [facility] lisinopriL 2019-11 Yes 20mg Take 1 [facility] rs (PRINIVIL) 0-06 tablet by [facility] of 20 mg 00:00: mouth [place] tablet 00 daily. [facility] lisinopriL 2019-11- No 20mg Take 1 [facility] ers 20 mg 0-06 05-05 tablet by ity of tablet 00:00: 00:00 mouth [place] 00 :00 daily. [facility] amLODIPine 2019-11- No [id number] 10mg Take 1 [facility] 10 mg 0-06 10-07 tablet by [facility] of tablet 00:00: 00:00 mouth [place] 00 :00 daily. [facility] amLODIPine 2019-11- No [id number] 10mg Take 1 [facility] 10 mg 0-06 10-07 tablet by ity of tablet 00:00: 00:00 mouth [place] 00 :00 daily. [facility] Branch cloNIDine 2019- No .1mg 0.1 mg, Univ ers (CATAPRES) 08-14 09-30 Oral, ity of tablet 0.1 20:30: 20:06 [...]
In dication: Hypertensi ve Emergency furosemide 2019- 2020- No 40mg 40 mg, IV U nivers (LASIX) 08-14 Push, it[facility] of injection 19:15: 19:06 [place], [place] 40 [place] :[place] dose, [facility] 08/14/20 at Branch 1415, DERICK furosemide 2019- 2020- No [id number] 40mg Take 1 [facility] (LASIX) 40 9-30 10-15 tablet by [facility] mg tablet 00:00: 04:59 mouth 2 [place] :[place] (two) Medical times Branch daily for 14 days. furosemide 2019- 2020- No [id number] 40mg Take 1 [facility] (LASIX) 40 9-30 10-15 tablet by [facility] of mg tablet 00:00: 04:59 mouth [place] :[place] (two) Medical times Branch daily for 14 days. furosemide 2019-0 2020- No [id number] 40mg Take 1 [facility] (LASIX) 40 9-30 10-15 tablet by [facility] mg tablet 00:00: 04:59 mouth 2 [place] (two) Medical times Branch daily for 14 days. furosemide 2019-0 2020- No [id number] 40mg Take 1 [facility] (LASIX) 40 9-30 10-15 tablet by [facility] of mg tablet 00:00: 04:59 mouth 2 [place] :[place] (two) Medical times Branch daily for 14 days. furosemide 2019-0 2020- No [id number] 40mg Take 1 [facility] (LASIX) 40 9-30 10-15 tablet by [facility] mg tablet 00:00: 04:59 mouth 2 [place] :[place] (two) Medical times [facility] daily for 14 days. carvediloL 2019- 2020- No [id number] 25mg Take 1 [facility] 25 mg 08-14-30 tablet by ity of tablet 00:00: 00:00 mouth 2 [place] 00 :00 (two) Medical times Branch daily with meals for 30 days. carvediloL 2019- 2020- No [id number] 25mg Take 2 [facility] 12.5 mg 9-30 09-30 tablets by ity o f tablet 00:00: 00:00 mouth 2 [place] 00 :00 (two) Medical times Branch daily with meals. aspirin 81 2020-0 Yes [id number] 81mg Take 1 U nivers mg chewable 9-15 tablet by ity of tablet 00:00: mouth [place] 00 daily. Medical Branch aspirin 81 2020-0 Yes [id number] 81mg Take 1 [facility] nivers mg chewable 9-15 tablet by ity of tablet 00:00: mouth [place] 00 daily. [facility] aspirin 81 2020-0 Yes [id number] 81mg Take 1 [facility] nivers mg chewable 9-15 tablet by ity of tablet 00:00: mouth [place] 00 daily. [facility] aspirin 81 2020-0 Yes [id number] 81mg Take 1 [facility] nivers mg chewable 9-15 tablet by ity of tablet 00:00: mouth [place] 00 daily. [facility] aspirin 81 2020-0 Yes [id number] 81mg Take 1 [facility] nivers mg chewable 9-15 tablet by ity of tablet 00:00: mouth [place] 00 daily. [facility] aspirin 81 2020-0 Yes [id number] 81mg Take 1 [facility] nivers mg chewable 9-15 tablet by ity of tablet 00:00: mouth [place] 00 daily. [facility] aspirin 81 2020-0 Yes [id number] 81mg Take 1 [facility] nivers mg chewable 9-15 tablet by ity of tablet 00:00: mouth [place] 00 daily. [facility] aspirin 81 2020-0 Yes [id number] 81mg Take 1 [facility] n[facility] mg chewable 9-15 tablet by ity of tablet 00:00: mouth [place] 00 daily. Medical [facility] aspirin 81 2020-0 Yes [id number] 81mg Take 1 [facility] nivers mg chewable 9-15 tablet by ity of tablet 00:00: mouth [place] 00 daily. [facility] aspirin 81 2020-0 Yes [id number] 81mg Take 1 [facility] nivers mg chewable 9-15 tablet by ity of tablet 00:00: mouth [place] 00 daily. Medical [facility] aspirin 81 2020-0 Yes [id number] 81mg Take 1 [facility] nivers mg chewable 9-15 tablet by ity of tablet 00:00: mouth [place] 00 daily. [facility] aspirin 81 2020-0 Yes [id number] 81mg Take 1 U nivers mg chewable 9-15 tablet by ity of tablet 00:00: mouth [place] 00 daily. [facility] Branch aspirin 81 2020-0 Yes [id number] 81mg Take 1 [facility] nivers mg chewable 9-15 tablet by ity of tablet 00:00: mouth [place] 00 daily. [facility] aspirin 81 2020-0 Yes [id number] 81mg Take 1 [facility] nivers mg chewable 9-15 tablet by ity of tablet 00:00: mouth [place] 00 daily. Medical [facility] aspirin 81 2020-0 Yes [id number] 81mg Take 1 [facility] nivers mg chewable 9-15 tablet by ity of tablet 00:00: mouth [place] 00 daily. Medical Branch aspirin 81 2020-0 Yes [id number] 81mg Take 1 U nivers mg chewable 9-15 tablet by ity of tablet 00:00: mouth [place] 00 daily. Medical [facility] aspirin 81 2020-0 Yes [id number] 81mg Take 1 [facility] nivers mg chewable 9-15 tablet by ity of tablet 00:00: mouth [place] 00 daily. Medical Branch aspirin 81 2020-0 Yes [id number] 81mg Take 1 U nivers mg chewable 9-15 tablet by ity of tablet 00:00: mouth [place] 00 daily. Medical [facility] aspirin 81 2020-0 Yes [id number] 81mg Take 1 U nivers mg chewable 9-15 tablet by ity of tablet 00:00: mouth [place] 00 daily. Medical Branch aspirin 81 2020-0 Yes [id number] 81mg Take 1 U nivers mg chewable 9-15 tablet by ity of tablet 00:00: mouth [place] 00 daily. Medical [facility] aspirin 81 2020-0 Yes [id number] 81mg Take 1 U nivers mg chewable 9-15 tablet by ity of tablet 00:00: mouth [place] 00 daily. Medical Branch aspirin 81 2020-0 Yes [id number] 81mg Take 1 U nivers mg chewable 9-15 tablet by ity of tablet 00:00: mouth [place] 00 daily. [facility] aspirin 81 2020-0 Yes [id number] 81mg Take 1 U nivers mg chewable 9-15 tablet by ity of tablet 00:00: mouth [place] 00 daily. [facility] aspirin 81 2020-0 Yes [id number] 81mg Take 1 U nivers mg chewable 9-15 tablet by ity of tablet 00:00: mouth [place] 00 daily. Medical [facility] aspirin 81 2020-0 Yes [id number] 81mg Take 1 U nivers mg chewable 9-15 tablet by ity of tablet 00:00: mouth [place] 00 daily. [facility] aspirin 81 2020-0 Yes [id number] 81mg Take 1 [facility] nivers mg chewable 9-15 tablet by ity of tablet 00:00: mouth [place] 00 daily. Medical Branch aspirin 81 2020-0 Yes [id number] 81mg Take 1 [facility] nivers mg chewable 9-15 tablet by ity of tablet 00:00: mouth [place] 00 daily. Medical [facility] aspirin 81 2020-0 Yes [id number] 81mg Take 1 U nivers mg chewable 9-15 tablet by ity of tablet 00:00: mouth [place] 00 daily. Medical Branch aspirin 81 2020-0 Yes [id number] 81mg Take 1 U nivers mg chewable 9-15 tablet by ity of tablet 00:00: mouth [place] 00 daily. Medical Branch aspirin 81 2020-0 Yes [id number] 81mg Take 1 U nivers mg chewable 9-15 tablet by ity of tablet 00:00: mouth [place] 00 daily. Medical Branch aspirin 81 2020-0 Yes [id number] 81mg Take 1 U nivers mg chewable 9-15 tablet by ity of tablet 00:00: mouth [place] 00 daily. [facility] Branch aspirin 81 2020-0 Yes [id number] 81mg Take 1 U nivers mg chewable 9-15 tablet by ity of tablet 00:00: mouth [place] 00 daily. Medical [facility] aspirin 81 2020-0 Yes [id number] 81mg Take 1 U nivers mg chewable 9-15 tablet by ity of tablet 00:00: mouth [place] 00 daily. Medical Branch aspirin 81 2020-0 Yes [id number] 81mg Take 1 U nivers mg chewable 9-15 tablet by ity of tablet 00:00: mouth [place] 00 daily. Medical [facility] aspirin 81 2020-0 Yes [id number] 81mg Take 1 U nivers mg chewable 9-15 tablet by ity of tablet 00:00: mouth [place] 00 daily. Medical Branch aspirin 81 2020-0 Yes [id number] 81mg Take 1 U nivers mg chewable [...] by mouth ity of tablet 21:17: daily. [place] [address] Medical Branch atorvastati 2019-0 Yes 40mg Take 40 mg Univers n 40 mg 9-14 by mouth ity of tablet 21:17: at [place] [address] bedtime. Medical Branch allopurinoL 2019-0 Yes 300mg Take 300 U nivers 100 mg 9-14 mg by ity of tablet 21:17: mouth [place] 49 daily. Medical Branch glipiZIDE 2019-0 Yes 10mg Take 10 mg Un sparkle 10 mg 9-14 by mouth ity of tablet 21:17: daily. [place] [address] Medical Branch metformin 2019-0 Yes 500mg Take 500 Uni vers ER 500 mg 9-14 mg by ity of 24 hr 21:17: mouth [place] tablet 49 daily with Medical breakfast. Branch fenofibrate 2019-0 Yes 54mg Take 54 mg [facility] 54 mg 9-14 by mouth ity of tablet 21:17: daily. [place] [address] Medical Branch atorvastati 2019-0 Yes 40mg Take 40 mg Univers n 40 mg 9-14 by mouth ity of tablet 21:17: at [place] [address] bedtime. Medical Branch allopurinoL 2019-0 Yes 300mg Take 300 U nivers 100 mg 9-14 mg by ity of tablet 21:17: mouth [place] 49 daily. Medical Branch glipiZIDE 2019-0 Yes 10mg Take 10 mg Un sparkle 10 mg 9-14 by mouth ity of tablet 21:17: daily. [place] [address] Medical Branch carvediloL 2019-0 Yes [id number] 12.5mg Take 1 [facility] 12.5 mg 9-14 tablet by ity of tablet 00:00: mouth 2 [place] 00 (two) Medical times Branch daily with meals. carvediloL 0 2020- No [id number] 12.5mg Take 1 [facility] 12.5 mg 9-14 09-30 tablet by ity of tablet 00:00: 00:00 mouth 2 [place] 00 :00 (two) Medical times Branch daily with meals. allopurinol 2017-11 No 1mg 300 mg 0-11 tablet 00:00: 00 amlodipine 2017-11 No 1mg 10 mg 0-11 tablet 00:00: 00 glipizide 5 2017-11 No 1mg mg tablet 0-11 00:00: 00 fenofibrate 2018-1 No 1mg 54 mg 0-11 tablet 00:00: [...] 1mg 10 mg 0-11 tablet 00:00: 00 fenofibrate 2017- No 1mg 54 mg 0-11 tablet 00:00: 00 atorvastati 2017- No 1mg n 40 mg 0-11 tablet 00:00: 00 Dose 2018-1 No 1 Unknown 0-11 00:00: 00 allopurinol 2017- No 1mg 300 mg 0-11 tablet 00:00: 00 amlodipine 2017-1 No 1mg 10 mg 0-11 tablet 00:00: 00 glipizide 5 2017- No 1mg mg tablet 0-11 00:00: 00 fenofibrate 2017- No 1mg 54 mg 0-11 tablet 00:00: 00 atorvastati 2018- No 1mg n 40 mg 0-11 tablet 00:00: 00 allopurinol 2018-1 No 1mg 300 mg 0-11 tablet 00:00: 00 amlodipine 2018-1 No 1mg 10 mg 0-11 tablet 00:00: [...] hr 00:00: tablet,exte 00 nded release lisinopril 2017-11 No 2mg 20 0-10 mg-hydrochl 00:00: orothiazide 00 12.5 mg tablet metformin 2017- No 1mg ER 500 mg 0-10 24 hr 00:00: tablet,exte 00 nded release lisinopril 2017-1 No 2mg 20 0-10 mg-hydrochl 00:00: orothiazide 00 12.5 mg tablet metformin 2017-1 No 1mg ER 500 mg 0-10 24 hr 00:00: tablet,exte 00 nded release Dose 2018-1 No 4 Unknown 0-10 00:00: 00 Dose 2018-1 No Unknown 0-10 00:00: 00 lisinopril 2017-1 No 2mg 20 0-10 mg-hydrochl 00:00: orothiazide 00 12.5 mg tablet metformin 2017-1 No 1mg ER 500 mg 0-10 24 hr 00:00: tablet,exte 00 nded release lisinopril 2017-1 No 2mg 20 0-10 mg-hydrochl 00:00: orothiazide 00 12.5 mg tablet metformin 2018-1 No 1mg ER 500 mg 0-10 24 hr 00:00: tablet,exte 00 nded release lisinopril 2017-1 No 2mg 20 0-10 mg-hydrochl 00:00: orothiazide 00 12.5 mg tablet metformin 2018-1 No 1mg ER 500 mg 0-10 24 hr 00:00: tablet,exte 00 nded release lisinopril 2017-1 No 2mg 20 0-10 mg-hydrochl 00:00: orothiazide 00 12.5 mg tablet metformin 2018-1 No 1mg ER 500 mg 0-10 24 [...] mg 1-17 capsule 00:00: 00 glipizide 5 2016-1 No 1mg mg tablet 2-13 00:00: 00 simvastatin 2017-1 No 1mg 40 mg 2-13 tablet 00:00: 00 glipizide 5 2016- No 1mg mg tablet 2-13 00:00: 00 simvastatin 2016-1 No 1mg 40 mg 2-13 tablet 00:00: 00 glipizide 5 2016-1 No 1mg mg tablet 2-13 00:00: 00 simvastatin 2017-1 No 1mg 40 mg 2-13 tablet 00:00: 00 glipizide 5 2016- No 1mg mg tablet 2-13 00:00: 00 simvastatin 2017-1 No 1mg 40 mg 2-13 tablet 00:00: 00 glipizide 5 2016-1 No 1mg mg tablet 2-13 00:00: 00 glipizide 5 2016-1 No 1mg mg tablet 2-13 00:00: 00 simvastatin 2017-1 No 1mg 40 mg 2-13 tablet 00:00: 00 simvastatin 2017-1 No 1mg 40 mg 2-13 tablet 00:00: 00 glipizide 5 2016-1 No 1mg mg tablet 2-13 00:00: 00 simvastatin 2016-1 No 1mg 40 mg 2-13 tablet 00:00: 00 glipizide 5 2016-1 No 1mg mg tablet 2-13 00:00: 00 simvastatin 2017-1 No 1mg 40 mg 2-13 tablet 00:00: 00 glipizide 5 2016- No 1mg mg tablet 2-13 00:00: 00 simvastatin 2017-1 No 1mg 40 mg 2-13 tablet 00:00: 00 lisinopril 2016- No 2mg 20 2-11 mg-hydrochl 00:00: orothiazide 00 12.5 mg tablet lisinopril 2016- No 2mg 20 2-11 mg-hydrochl 00:00: orothiazide 00 12.5 mg tablet lisinopril 2016- No 2mg 20 2-11 mg-hydrochl 00:00: orothiazide 00 12.5 mg tablet lisinopril 2016- No 2mg 20 2-11 mg-hydrochl 00:00: orothiazide 00 12.5 mg tablet lisinopril 2016- No 2mg 20 2-11 mg-hydrochl 00:00: orothiazide 00 12.5 mg tablet lisinopril 2016- No 2mg 20 2-11 mg-hydrochl 00:00: orothiazide 00 12.5 mg tablet lisinopril 2016- No 2mg 20 2-11 mg-hydrochl 00:00: orothiazide 00 12.5 mg tablet lisinopril 2016- No 2mg 20 2-11 mg-hydrochl 00:00: orothiazide 00 12.5 mg tablet lisinopril 2016- No 2mg 20 2-11 mg-hydrochl 00:00: orothiazide [...] 00:00: orothiazide 00 12.5 mg tablet lisinopril 2017-1 No 1mg 20 2-08 mg-hydrochl 00:00: orothiazide 00 12.5 mg tablet lisinopril 2017-1 No 1mg 20 2-08 mg-hydrochl 00:00: orothiazide 00 12.5 mg tablet lisinopril 2017-0 No 1mg 20 5-24 mg-hydrochl [...] 10 mg 1-26 tablet 00:00: 00 amlodipine 2016-0 No 1mg 10 mg 1-26 tablet 00:00: 00 cyclobenzap 2017-0 No 1mg rine 10 mg 1-26 tablet 00:00: 00 amlodipine 2017-0 No 1mg 10 mg 1-26 tablet 00:00: 00 cyclobenzap 2016-0 No 1mg rine 10 mg 1-26 tablet 00:00: 00 amlodipine 2016-0 No 1mg 10 mg 1-26 tablet 00:00: 00 cyclobenzap 2016-0 No 1mg rine 10 mg 1-26 tablet 00:00: 00 amlodipine 2016-0 No 1mg 10 mg 1-26 tablet 00:00: 00 cyclobenzap 2016-0 No 1mg rine 10 mg 1-26 tablet 00:00: 00 amlodipine 2016-0 No 1mg 10 mg 1-26 tablet 00:00: 00 cyclobenzap 2016-0 No 1mg rine 10 mg 1-26 tablet 00:00: 00 amlodipine 2016-0 No 1mg 10 mg 1-26 tablet 00:00: [...] 00:00: orothiazide 00 12.5 mg tablet pravastatin 2015-11 No 1mg 40 mg 1-04 tablet 00:00: 00 lisinopril 2015-11 No 1mg 20 1-04 mg-hydrochl 00:00: orothiazide 00 12.5 mg tablet pravastatin 2015-11 No 1mg 40 mg 1-04 tablet 00:00: [...] 40 mg 1-04 tablet 00:00: 00 lisinopril 2015-11 No 1mg 20 1-04 mg-hydrochl 00:00: orothiazide 00 12.5 mg tablet pravastatin 2015-11 No 1mg 40 mg 1-04 tablet 00:00: 00 lisinopril 2015-11 No 1mg 20 1-04 mg-hydrochl 00:00: orothiazide 00 12.5 mg tablet pravastatin 2015-11 No 1mg 40 mg 1-04 tablet 00:00: 00 lisinopril 2015- No 1mg 20 1-04 mg-hydrochl 00:00: orothiazide 00 12.5 mg tablet pravastatin 2015- No 1mg 40 mg 1-04 tablet 00:00: 00 lisinopril 2015- No 1mg 20 1-04 mg-hydrochl 00:00: orothiazide 00 12.5 mg tablet pravastatin 2015-11 No 1mg 40 mg 1-04 tablet 00:00: 00 lisinopril 0 No 1mg 20 6-25 mg-hydrochl 00:00: orothiazide 00 12.5 mg tablet lisinopril 2015- No 1mg 20 6-25 mg-hydrochl 00:00: orothiazide 00 12.5 mg tablet lisinopril 2015-0 No 1mg 20 6-25 mg-hydrochl 00:00: orothiazide 00 12.5 mg tablet lisinopril No 1mg 20 6-25 mg-hydrochl 00:00: orothiazide [...] amlodipine 2016-0 No 1mg 5 mg tablet 425 00:00: 00 pravastatin 2016-0 No 1mg 40 mg 4-25 tablet 00:00: 00 amlodipine 2016-0 No 1mg 5 mg tablet 4 00:00: 00 pravastatin 2016-0 No 1mg 40 mg 4-25 tablet 00:00: 00 amlodipine 2016-0 No 1mg 5 mg tablet 4 00:00: 00 pravastatin 2016-0 No 1mg 40 mg 4-25 tablet 00:00: 00 amlodipine 2016-0 No 1mg 5 mg tablet 425 00:00: 00 pravastatin 2016-0 No 1mg 40 mg 4-25 tablet 00:00: 00 amlodipine 2016-0 No 1mg 5 mg tablet 425 00:00: 00 pravastatin 2016-0 No 1mg 40 mg 4-25 tablet 00:00: 00 amlodipine 2016-0 No 1mg 5 mg tablet 425 00:00: 00 pravastatin 2016-0 No 1mg 40 mg 4-25 tablet 00:00: 00 amlodipine 2016-0 No 1mg 5 mg tablet 425 00:00: 00 pravastatin 2016-0 No 1mg 40 mg 4-25 tablet 00:00: 00 amlodipine 2016-0 No 1mg 5 mg tablet 425 00:00: 00 pravastatin 2016-0 No 1mg 40 mg 4-25 tablet 00:00: 00 amlodipine 2016-0 No 1mg 5 mg tablet 425 00:00: 00 Vital Signs Vital Name Observation Time Observation Value Comments Source Systolic blood 2023-07-22 18:04:00 149 mm[Hg] [facility] sity of pressure [place] [facility] Diastolic blood 2023-07-22 18:04:00 87 mm[Hg] Unive rsity of pressure [place] [facility] Heart rate 2023-07-22 18:04:00 83 /min [facility] [place] [facility] Body temperature 2023-07-22 18:01:00 36.89 Cyn [facility] ers[facility] of [place] [facility] Respiratory rate 2023-07-22 18:01:00 18 /min [facility] ers[facility] of [place] [facility] Body height 2023-07-22 18:01:00 175.3 cm [facility] [place] [facility] Body weight 2023-07-22 18:01:00 139.572 kg [facility] [place] [facility] BMI 2023-07-22 18:01:00 45.44 kg/m2 [facility] [place] [facility] [place] Oxygen saturation in 2023-07-22 18:01:00 91 /min [facility] of Arterial blood by [facility] Pulse oximetry Branch Respiratory rate 2023-03-19 18:44:00 16 /min [facility] ersity of [place] [facility] Oxygen saturation in 2023-03-19 18:44:00 92 /min [facility] of Arterial blood by [facility] Pulse oximetry Branch Systolic blood 2023-03-19 16:40:00 132 mm[Hg] Univer sity of pressure [place] [facility] Diastolic blood 2023-03-19 16:40:00 77 mm[Hg] Unive rsity of pressure [place] [facility] Heart rate 2023-03-19 16:40:00 79 /min [facility] [place] [facility] Body temperature 2023-03-19 16:40:00 35.89 Cyn [facility] [place] [facility] Body weight 2023-03-19 08:44:00 143.972 kg [facility] [place] [facility] BMI 2023-03-19 08:44:00 46.87 kg/m2 [facility] [place] [facility] Body height 2023-03-16 20:58:00 175.3 cm [facility] [place] [facility] Systolic blood 2020-10-02 17:45:00 125 mm[Hg] [facility] sity of pressure [place] [facility] Diastolic blood 2020-10-02 17:45:00 81 mm[Hg] Unive rsity of pressure [place] [facility] Heart rate 2020-10-02 17:41:00 82 /min [facility] [place] [facility] Body height 2020-10-02 17:41:00 175.3 cm [facility] [place] [facility] Body weight 2020-10-02 17:41:00 139.708 kg [facility] [place] [facility] BMI 2020-10-02 17:41:00 45.48 kg/m2 [facility] of [facility] Systolic blood 2020-08-20 19:03:00 156 mm[Hg] Un[facility] sity of pressure [place] [facility] Diastolic blood 2020-08-20 19:03:00 95 mm[Hg] Unive rsity of pressure [place] [facility] Heart rate 2020-08-20 19:00:00 67 /min [facility] [place] [facility] [place] Body weight 2020-08-20 19:00:00 142.792 kg [facility] [place] [facility] [place] BMI 2020-08-20 19:00:00 46.49 kg/m2 [facility]i ty of [facility] Oxygen saturation in 2020-08-20 19:00:00 98 /min [facility] of Arterial blood by [facility] Pulse oximetry Branch Systolic blood 2020-08-14 20:00:00 170 mm[Hg] Univer sity of pressure [facility] Branch Diastolic blood 2020-08-14 20:00:00 85 mm[Hg] Unive rsity of pressure [facility] Branch Respiratory rate 2020-08-14 20:00:00 18 /min Univ ersity of [facility] Heart rate 2020-08-14 19:15:00 61 /min Universi ty of [facility] Oxygen saturation in 2020-08-14 19:15:00 98 /min University of Arterial blood by [facility] Pulse oximetry Branch Body temperature 2020-08-14 16:36:00 37.22 Cyn Univ [facility] Body height 2020-08-14 16:36:00 175.3 cm [facility] Body weight 2020-08-14 16:36:00 142.883 kg [facility] BMI 2020-08-14 16:36:00 46.52 kg/m2 [facility] BP Systolic 2022-11-13 11:29:00 175 mm[Hg] BP Diastolic 2022-11-13 11:29:00 98 mm[Hg] Weight Measured 2022-11-13 11:29:00 313.20 pounds Height Measured 2022-11-13 11:29:00 69.00 inches Body Temperature 2022-11-13 11:29:00 98.60 degrees Heart Rate 2022-11-13 11:29:00 85.00 /min Respiratory Rate 2022-11-13 11:29:00 18.00 /min BP Systolic 2022-10-20 11:43:00 135 mm[Hg] BP [...] Date / Time Performing Clinician Source Performed SLEEP STUDY DATA REPORT 2023-07-08 05:01:00 Doctor Unassigned, U [facility] POCT GLUCOSE (AUTOMATED) 2023-03-19 16:41:00 Chirag Lee [facility] POCT GLUCOSE (AUTOMATED) 2023-03-19 12:59:00 Chirag Lee [facility] HEPATIC FUNCTION PANEL 2023-03-19 10:23:00 Chirag Lee [facility] ([id number]) (ALB,T.PRO,BILI Medical Branch T,BU/BC,ALT,AST,ALK PHOS) BASIC METABOLIC PANEL 2023-03-19 10:23:00 Chirag Lee [facility] (NA, K, CL, CO2, GLUCOSE, Medica l Branch BUN, CREATININE, CA) POCT GLUCOSE (AUTOMATED) 2023-03-18 21:28:00 Chirag Lee [facility] POCT GLUCOSE (AUTOMATED) 2023-03-18 16:45:00 Chirag Lee [facility] POCT GLUCOSE (AUTOMATED) 2023-03-18 12:57:00 Chirag Lee [facility] ACUTE CARE VENOUS BLOOD 2023-03-18 08:21:00 Luca [facility] HEPATIC FUNCTION PANEL 2023-03-18 08:13[id number] ([facility]B,T.PRO,BILI Medical Branch T,BU/BC,ALT,AST,ALK PHOS) BASIC METABOLIC PANEL 2023-03-18 08:13:[facility] (NA, K, CL, CO2, GLUCOSE, Medica l Branch BUN, CREATININE, CA) CBC WITH DIFF 2023-03-18 08:13:00 Luca [facility] GLYCOSYLATED HEMOGLOBIN 2023-03-18 08:13:00 Chirag Lee [facility] (A1C) [facility] POCT GLUCOSE (AUTOMATED) 2023-03-18 01:19:00 Chirag Lee [facility] POCT GLUCOSE (AUTOMATED) 2023-03-17 22:09:00 Chirag Lee [facility] POCT GLUCOSE (AUTOMATED) 2023-03-17 17:03:00 Chirag Lee [facility] POCT GLUCOSE (AUTOMATED) 2023-03-17 12:45:00 Chirag Lee [facility] LIPID PANEL ([id number])(TOTAL 2023-03-17 08:37:00 Kedar Duncan [facility] CHOLESTEROL, [facility] TRIGLYCERIDES, HDL) POCT GLUCOSE (AUTOMATED) 2023-03-17 01:26:00 Chirag Lee [facility] POCT GLUCOSE (AUTOMATED) 2023-03-16 22:16:00 Chirag Lee [facility] CT ABDOMEN PELVIS W 2023-03-16 17:17:08 Jay Samuel [facility] CONTRAST [facility] CT CHEST PULMONARY 2023-03-16 17:17:08 Jay Samuel [facility] ANGIOGRAM [facility] Branch XR CHEST 1 VW 2023-03-16 15:19:50 Jay Samuel [facility] ACUTE CARE VENOUS BLOOD 2023-03-16 15:12:00 Jay Samuel [facility] GAS [facility] LACTIC ACID WHOLE BLOOD 2023-03-16 15:12:00 Jay Samuel [facility] HB ECG ROUTINE & RHYTHM 2023-03-16 15:07:48 Jay Samuel [facility] STRIP [facility] LIPASE 2023-03-16 15:05:00 Jay Samuel [facility] TROPONIN I 2023-03-16 15:05:00 Jay Samuel [facility] COMP. METABOLIC PANEL 2023-03-16 15:05:00 Jay Samuel [facility] ([id number]) [facility] CBC WITH DIFF 2023-03-16 15:05:00 Jay Samuel [facility] URINALYSIS 2023-03-16 15:05:00 Jay Samuel [facility] RAPID INFLUENZA A/B 2023-03-16 15:05:00 Jay Samuel [facility] N-TERMINAL PRO-BNP 2023-03-16 15:05:00 Jay Samuel [facility] COVID-19 (ID NOW RAPID 2023-03-16 15:05:00 Jay Samuel [facility] TESTING) Medical Branch LAB ONLY COVID 2023-03-16 15:05:00 Jay Samuel [facility] INTERPRETATION [facility] POCT GLUCOSE (AUTOMATED) 2023-03-16 14:47:00 Jay Samuel Un [facility] CONSENT/REFUSAL FOR 2023-03-16 14:38:30 Doctor Unassigned, [facility] DIAGNOSIS AND TREATMENT [facility] REFERRAL- 2022-06-02 05:01:00 Doctor Unassigned, [facility] REQUEST/RESPONSE [facility] ASSIGNMENT OF BENEFITS 2020-10-16 16:59:19 Doctor Unassigned, [facility] COVID-19 (ID NOW RAPID 2020-09-23 15:31:00 Steve Grande [facility] TESTING) Medical Branch CONSENT/REFUSAL FOR 2020-09-23 14:40:38 Doctor Unassigned, [facility] DIAGNOSIS AND TREATMENT [facility] ASSIGNMENT OF BENEFITS 2020-09-23 14:40:20 Doctor Unassigned, [facility] COVID-19 (ID NOW RAPID 2020-08-14 17:41:00 Yuriy Wong U [facility] TESTING) Medical Branch XR CHEST 2 VW 2020-08-14 17:27:25 Yuriy Wong [facility] Medical Branch LIPASE 2020-08-14 16:56:00 Singer [facility] TROPONIN I 2020-08-14 16:56:00 [facility] COMP. METABOLIC PANEL 2020-08-14 16:56:00 [facility] ([id number]) Medical Branch CBC WITH DIFF 2020-08-14 16:56:00 Nestor Saenz [place] [facility] PROTHROMBIN TIME / INR 2020-08-14 16:56:00 Nestor Saenz [facility] ACTIVATED PARTIAL 2020-08-14 16:56:00 Nestor Saenz [facility] THRMPLAS AVERY [facility] N-TERMINAL PRO-BNP 2020-08-14 16:56:00 Nestor Saenz y of [facility] EKG-12 LEAD 2020-08-14 16:53:49 Nestor Saenz [place] [facility] NOTICE OF PRIVACY 2020-08-14 16:32:14 Doctor Unassigned, [facility] [place] CONSENT/REFUSAL FOR 2020-08-14 16:29:49 Doctor [facility] DIAGNOSIS AND TREATMENT [place] [facility] Plan of Care Planned Activity Planned Date Details Comments Source Goal Plan of Care Note [code = 02677-1] Goal Plan of Care Note [code = 07900-9] Goal Plan of Care Note [code = 37021-0] Goal Plan of Care Note [code = 59837-5] Goal Plan of Care Note [code = 97365-8] Goal Plan of Care Note [code = 54101-7] Goal Plan of Care Note [code = 62870-9] Goal Plan of Care Note [code = 38721-1] Goal Plan of Care Note [code = 84077-3] Goal Plan of Care Note [code = 74528-8] Goal Plan of Care Note [code = 55911-6] Goal Plan of Care Note [code = 94399-4] Goal Plan of Care Note [code = 02649-9] Goal Plan of Care Note [code = 78076-1] Goal Plan of Care Note [code = 66862-1] Goal Plan of Care Note [code = 75072-4] Goal Plan of Care Note [code = 99644-2] Goal Plan of Care Note [code = 59227-3] Goal Plan of Care Note [code = 67317-3] Goal Plan of Care Note [code = 49738-0] Goal Plan of Care Note [code = 43269-4] Goal Plan of Care Note [code = 10435-9] Goal Plan of Care Note [code = 90738-9] Goal Plan of Care Note [code = 44254-8] Goal Plan of Care Note [code = 49965-1] Goal Plan of Care Note [code = 25934-8] Goal Plan of Care Note [code = 40886-0] Goal Plan of Care Note [code = 07752-5] Goal Plan of Care Note [code = 82185-4] Goal Plan of Care Note [code = 18343-6] Goal Plan of Care Note [code = 04288-6] Goal Plan of Care Note [code = 25011-5] Goal Plan of Care Note [code = 20761-1] Goal Plan of Care Note [code = 30972-0] Goal Plan of Care Note [code = 84814-4] Goal Plan of Care Note [code = 59867-2] Goal Plan of Care Note [code = 49070-6] Goal Plan of Care Note [code = 58504-2] Goal Plan of Care Note [code = 57002-5] Goal Plan of Care Note [code = 29018-0] Goal Plan of Care Note [code = 26803-9] Goal Plan of Care Note [code = 80974-3] Goal Plan of Care Note [code = 08862-8] Goal Plan of Care Note [code = 59248-5] Goal Plan of Care Note [code = 02215-9] Goal Plan of Care Note [code = 76853-7] Goal Plan of Care Note [code = 77209-8] Goal Plan of Care Note [code = 53778-5] Goal Plan of Care Note [code = 38616-1] Goal Plan of Care Note [code = 23865-0] Goal Plan of Care Note [code = 37587-5] Goal Plan of Care Note [code = 32798-7] Goal Plan of Care Note [code = 99649-6] Goal Plan of Care Note [code = 68417-9] Goal Plan of Care Note [code = 71443-0] Goal Plan of Care Note [code = 57555-8] Goal Plan of Care Note [code = 98640-6] Goal Plan of Care Note [code = 23930-7] Goal Plan of Care Note [code = 33360-0] Goal Plan of Care Note [code = 35181-3] Goal Plan of Care Note [code = 51497-1] Goal Plan of Care Note [code = 98160-0] Goal Plan of Care Note [code = 24097-8] Goal Plan of Care Note [code = 42199-8] Goal Plan of Care Note [code = 38495-7] Goal Plan of Care Note [code = 75701-4] Goal Plan of Care Note [code = 12417-0] Goal Plan of Care Note [code = 57644-8] Goal Plan of Care Note [code = 36902-0] Goal Plan of Care Note [code = 44553-7] Goal Plan of Care Note [code = 80084-1] Goal Plan of Care Note [code = 56105-4] Goal Plan of Care Note [code = 31932-3] Goal Plan of Care Note [code = 98468-3] Goal Plan of Care Note [code = 32817-5] Goal Plan of Care Note [code = 32331-7] Goal Plan of Care Note [code = 40388-1] Goal Plan of Care Note [code = 75830-5] Goal Plan of Care Note [code = 48431-7] Goal Plan of Care Note [code = 42359-9] Goal Plan of Care Note [code = 08769-0] Goal Plan of Care Note [code = 67341-8] Goal Plan of Care Note [code = 42377-0] Goal Plan of Care Note [code = 58652-7] Goal Plan of Care Note [code = 62581-7] Goal Plan of Care Note [code = 10422-0] Goal Plan of Care Note [code = 82599-5] Goal Plan of Care Note [code = 77231-0] Goal Plan of Care Note [code = 21820-4] Goal Plan of Care Note [code = 03187-4] Goal Plan of Care Note [code = 14588-6] Goal Plan of Care Note [code = 27695-5] Goal Plan of Care Note [code = 46535-6] Goal Plan of Care Note [code = 77882-8] Goal Plan of Care Note [code = 51507-8] Goal Plan of Care Note [code = 42479-0] Goal Plan of Care Note [code = 20718-8] Goal Plan of Care Note [code = 17103-5] Goal Plan of Care Note [code = 25173-3] Goal Plan of Care Note [code = 80383-5] Goal Plan of Care Note [code = 76670-2] Goal Plan of Care Note [code = 97347-1] Goal Plan of Care Note [code = 86389-5] Goal Plan of Care Note [code = 85421-7] Goal Plan of Care Note [code = 94038-4] Goal Plan of Care Note [code = 37151-3] Goal Plan of Care Note [code = 84799-0] Goal Plan of Care Note [code = 17830-9] Goal Plan of Care Note [code = 29324-7] Goal Plan of Care Note [code = 79228-9] Goal Plan of Care Note [code = 84608-9] Goal Plan of Care Note [code = 72118-6] Goal Plan of Care Note [code = 02011-4] Goal Plan of Care Note [code = 03959-0] Goal Plan of Care Note [code = 00681-6] Goal Plan of Care Note [code = 50101-5] Goal Plan of Care Note [code = 56345-0] Goal Plan of Care Note [code = 45597-1] Goal Plan of Care Note [code = 44103-6] Goal Plan of Care Note [code = 19898-5] Goal Plan of Care Note [code = 46674-2] Goal Plan of Care Note [code = 81316-1] Goal Plan of Care Note [code = 22477-2] Goal Plan of Care Note [code = 99266-6] Goal Plan of Care Note [code = 25645-5] Goal Plan of Care Note [code = 08346-9] Goal Plan of Care Note [code = 62318-7] Goal Plan of Care Note [code = 80796-2] Goal Plan of Care Note [code = 16549-0] Goal Plan of Care Note [code = 96315-4] Goal Plan of Care Note [code = 02731-8] Goal Plan of Care Note [code = 36399-8] Goal Plan of Care Note [code = 29971-9] Goal Plan of Care Note [code = 64420-7] Goal Plan of Care Note [code = 64318-7] Goal Plan of Care Note [code = 81509-9] Goal Plan of Care Note [code = 36397-0] Goal Plan of Care Note [code = 78200-7] Goal Plan of Care Note [code = 79095-6] Goal Plan of Care Note [code = 22212-8] Goal Plan of Care Note [code = 58922-0] Goal Plan of Care Note [code = 61887-5] Goal Plan of Care Note [code = 74360-2] Goal Plan of Care Note [code = 24571-5] Goal Plan of Care Note [code = 94223-3] Goal Plan of Care Note [code = 02752-4] Goal Plan of Care Note [code = 00895-5] Goal Plan of Care Note [code = 41419-2] Goal Plan of Care Note [code = 02384-5] Goal Plan of Care Note [code = 89768-0] Goal Plan of Care Note [code = 59732-9] Goal Plan of Care Note [code = 54865-5] Goal Plan of Care Note [code = 98568-1] Goal Plan of Care Note [code = 43116-6] Goal Plan of Care Note [code = 10456-4] Goal Plan of Care Note [code = 97602-5] Goal Plan of Care Note [code = 21108-9] Goal Plan of Care Note [code = 32224-8] Goal Plan of Care Note [code = 52027-8] Goal Plan of Care Note [code = 66978-8] Goal Plan of Care Note [code = 26961-2] Goal Plan of Care Note [code = 35712-0] Goal Plan of Care Note [code = 62875-5] Goal Plan of Care Note [code = 56853-6] Goal Plan of Care Note [code = 40349-4] Goal Plan of Care Note [code = 34201-3] Goal Plan of Care Note [code = 47088-3] Goal Plan of Care Note [code = 02162-0] Goal Plan of Care Note [code = 18978-1] Goal Plan of Care Note [code = 72901-6] Goal Plan of Care Note [code = 54575-6] Goal Plan of Care Note [code = 65903-2] Goal Plan of Care Note [code = 71905-1] Goal Plan of Care Note [code = 25959-8] Goal Plan of Care Note [code = 12149-2] Goal Plan of Care Note [code = 33626-6] Goal Plan of Care Note [code = 04925-6] Goal Plan of Care Note [code = 46597-2] Goal Plan of Care Note [code = 69523-6] Goal Plan of Care Note [code = 28035-6] Goal Plan of Care Note [code = 95258-1] Goal Plan of Care Note [code = 90408-7] Goal Plan of Care Note [code = 73501-1] Goal Plan of Care Note [code = 67729-1] Goal Plan of Care Note [code = 71071-5] Goal Plan of Care Note [code = 40043-3] Goal Plan of Care Note [code = 47170-6] Goal Plan of Care Note [code = 24717-1] Goal Plan of Care Note [code = 10865-6] Goal Plan of Care Note [code = 18725-9] Goal Plan of Care Note [code = 71102-5] Goal Plan of Care Note [code = 35757-1] Goal Plan of Care Note [code = 84634-3] Goal Plan of Care Note [code = 16840-5] Goal Plan of Care Note [code = 63899-4] Goal Plan of Care Note [code = 29913-6] Goal Plan of Care Note [code = 05390-7] Goal Plan of Care Note [code = 72637-0] Goal Plan of Care Note [code = 07598-6] Goal Plan of Care Note [code = 17053-6] Goal Plan of Care Note [code = 34086-5] Goal Plan of Care Note [code = 79404-4] Goal Plan of Care Note [code = 37619-5] Goal Plan of Care Note [code = 80605-6] Goal Plan of Care Note [code = 94473-2] Goal Plan of Care Note [code = 17296-2] Goal Plan of Care Note [code = 34801-4] Goal Plan of Care Note [code = 18322-7] Goal Plan of Care Note [code = 58805-4] Goal Plan of Care Note [code = 42915-8] Goal Plan of Care Note [code = 05493-9] Goal Plan of Care Note [code = 53999-6] Goal Plan of Care Note [code = 20021-0] Goal Plan of Care Note [code = 44159-9] Goal Plan of Care Note [code = 65396-7] Goal Plan of Care Note [code = 95274-6] Goal Plan of Care Note [code = 93592-3] Goal Plan of Care Note [code = 86575-2] Goal Plan of Care Note [code = 70381-7] Goal Plan of Care Note [code = 66538-6] Goal Plan of Care Note [code = 98164-6] Goal Plan of Care Note [code = 08048-6] Goal Plan of Care Note [code = 40184-7] Goal Plan of Care Note [code = 22549-4] Goal Plan of Care Note [code = 48326-4] Goal Plan of Care Note [code = 17942-9] Goal Plan of Care Note [code = 52558-3] Goal Plan of Care Note [code = 39329-0] Goal Plan of Care Note [code = 75610-3] Goal Plan of Care Note [code = 17728-3] Goal Plan of Care Note [code = 10340-2] Goal Plan of Care Note [code = 62765-2] Goal Plan of Care Note [code = 89518-4] Goal Plan of Care Note [code = 36171-6] Goal Plan of Care Note [code = 96076-6] Goal Plan of Care Note [code = 67450-5] Goal Plan of Care Note [code = 77856-9] Goal Plan of Care Note [code = 62270-6] Goal Plan of Care Note [code = 56743-4] Goal Plan of Care Note [code = 30878-7] Goal Plan of Care Note [code = 90395-5] Goal Plan of Care Note [code = 43583-5] Goal Plan of Care Note [code = 84921-3] Goal Plan of Care Note [code = 75989-7] Goal Plan of Care Note [code = 96647-5] Goal Plan of Care Note [code = 90307-6] Goal Plan of Care Note [code = 69741-7] Goal Plan of Care Note [code = 27291-3] Goal Plan of Care Note [code = 55137-3] Goal Plan of Care Note [code = 39903-1] Goal Plan of Care Note [code = 77658-9] Goal Plan of Care Note [code = 14157-0] Goal Plan of Care Note [code = 94197-8] Goal Plan of Care Note [code = 31276-8] Goal Plan of Care Note [code = 11991-7] Goal Plan of Care Note [code = 57595-0] Goal Plan of Care Note [code = 42894-7] Goal Plan of Care Note [code = 45064-3] Goal Plan of Care Note [code = 76945-6] Goal Plan of Care Note [code = 50247-9] Goal Plan of Care Note [code = 55549-8] Goal Plan of Care Note [code = 85367-1] Goal Plan of Care Note [code = 46094-8] Goal Plan of Care Note [code = 69976-4] Goal Plan of Care Note [code = 77549-2] Goal Plan of Care Note [code = 68003-5] Goal Plan of Care Note [code = 61637-1] Goal Plan of Care Note [code = 06208-2] Goal Plan of Care Note [code = 04381-2] Goal Plan of Care Note [code = 91177-8] Goal Plan of Care Note [code = 47765-0] Goal Plan of Care Note [code = 42242-6] Goal Plan of Care Note [code = 55139-5] Goal Plan of Care Note [code = 35830-5] Goal Plan of Care Note [code = 27342-0] Goal Plan of Care Note [code = 15610-3] Goal Plan of Care Note [code = 46275-1] Goal Plan of Care Note [code = 31240-8] Goal Plan of Care Note [code = 12672-4] Goal Plan of Care Note [code = 81042-1] Goal Plan of Care Note [code = 40054-1] Goal Plan of Care Note [code = 56456-7] Goal Plan of Care Note [code = 50363-6] Goal Plan of Care Note [code = 46749-2] Goal Plan of Care Note [code = 70532-7] Goal Plan of Care Note [code = 67522-7] Goal Plan of Care Note [code = 97250-0] Goal Plan of Care Note [code = 28484-6] Goal Plan of Care Note [code = 16964-0] Goal Plan of Care Note [code = 30630-5] Goal Plan of Care Note [code = 74990-7] Goal Plan of Care Note [code = 09571-8] Goal Plan of Care Note [code = 88116-7] Goal Plan of Care Note [code = 86218-0] Goal Plan of Care Note [code = 31056-3] Goal Plan of Care Note [code = 91106-0] Goal Plan of Care Note [code = 36329-9] Goal Plan of Care Note [code = 10454-1] Goal Plan of Care Note [code = 01120-9] Goal Plan of Care Note [code = 83415-2] Goal Plan of Care Note [code = 18331-8] Goal Plan of Care Note [code = 64676-1] Goal Plan of Care Note [code = 37603-3] Goal Plan of Care Note [code = 89736-2] Goal Plan of Care Note [code = 02450-4] Goal Plan of Care Note [code = 27287-4] Goal Plan of Care Note [code = 58668-7] Goal Plan of Care Note [code = 28805-9] Goal Plan of Care Note [code = 53999-2] Goal Plan of Care Note [code = 20272-0] Goal Plan of Care Note [code = 67638-2] Goal Plan of Care Note [code = 76188-5] Goal Plan of Care Note [code = 16021-9] Goal Plan of Care Note [code = 38609-9] Goal Plan of Care Note [code = 65508-8] Goal Plan of Care Note [code = 65131-9] Goal Plan of Care Note [code = 96994-2] Goal Plan of Care Note [code = 50114-5] Goal Plan of Care Note [code = 70329-0] Goal Plan of Care Note [code = 83030-4] Goal Plan of Care Note [code = 98504-4] Goal Plan of Care Note [code = 19044-1] Goal Plan of Care Note [code = 66846-8] Goal Plan of Care Note [code = 23629-4] Goal Plan of Care Note [code = 44576-0] Goal Plan of Care Note [code = 25573-4] Goal Plan of Care Note [code = 56570-0] Goal Plan of Care Note [code = 69758-5] Goal Plan of Care Note [code = 74847-5] Goal Plan of Care Note [code = 39952-2] Goal Plan of Care Note [code = 17265-0] Goal Plan of Care Note [code = 74024-5] Goal Plan of Care Note [code = 36173-6] Goal Plan of Care Note [code = 25006-9] Goal Plan of Care Note [code = 31206-5] Goal Plan of Care Note [code = 97911-7] Goal Plan of Care Note [code = 22083-3] Goal Plan of Care Note [code = 69260-3] Goal Plan of Care Note [code = 78321-8] Goal Plan of Care Note [code = 86366-7] Goal Plan of Care Note [code = 90150-5] Goal Plan of Care Note [code = 51505-7] Goal Plan of Care Note [code = 96298-6] Goal Plan of Care Note [code = 60224-2] Goal Plan of Care Note [code = 63315-3] Goal Plan of Care Note [code = 73804-8] Goal Plan of Care Note [code = 35955-1] Goal Plan of Care Note [code = 55149-0] Goal Plan of Care Note [code = 93700-0] Goal Plan of Care Note [code = 67102-5] Goal Plan of Care Note [code = 29440-1] Goal Plan of Care Note [code = 24862-0] Goal Plan of Care Note [code = 88150-1] Goal Plan of Care Note [code = 20542-4] Goal Plan of Care Note [code = 21728-7] Goal Plan of Care Note [code = 32352-6] Goal Plan of Care Note [code = 57315-0] Goal Plan of Care Note [code = 83198-6] Goal Plan of Care Note [code = 89681-8] Goal Plan of Care Note [code = 62112-6] Goal Plan of Care Note [code = 53631-5] Goal Plan of Care Note [code = 77307-4] Goal Plan of Care Note [code = 84088-7] Goal Plan of Care Note [code = 09563-7] Goal Plan of Care Note [code = 87566-9] Goal Plan of Care Note [code = 22469-9] Goal Plan of Care Note [code = 14738-0] Goal Plan of Care Note [code = 10104-5] Goal Plan of Care Note [code = 12353-6] Goal Plan of Care Note [code = 47025-3] Goal Plan of Care Note [code = 44712-1] Goal Plan of Care Note [code = 35718-1] Goal Plan of Care Note [code = 53742-8] Goal Plan of Care Note [code = 86525-7] Goal Plan of Care Note [code = 96604-5] Goal Plan of Care Note [code = 49992-0] Goal Plan of Care Note [code = 10991-4] Goal Plan of Care Note [code = 14935-1] Goal Plan of Care Note [code = 39200-7] Goal Plan of Care Note [code = 48026-1] Goal Plan of Care Note [code = 72603-3] Goal Plan of Care Note [code = 91290-7] Goal Plan of Care Note [code = 78096-7] Goal Plan of Care Note [code = 79809-1] Goal Plan of Care Note [code = 51620-4] Goal Plan of Care Note [code = 05221-7] Goal Plan of Care Note [code = 51212-7] Goal Plan of Care Note [code = 99261-1] Goal Plan of Care Note [code = 93923-4] Goal Plan of Care Note [code = 97206-2] Goal Plan of Care Note [code = 71382-0] Goal Plan of Care Note [code = 42415-0] Goal Plan of Care Note [code = 53979-5] Goal Plan of Care Note [code = 54610-0] Goal Plan of Care Note [code = 23966-8] Goal Plan of Care Note [code = 75104-1] Goal Plan of Care Note [code = 10447-1] Goal Plan of Care Note [code = 10853-8] Goal Plan of Care Note [code = 11157-6] Goal Plan of Care Note [code = 02263-5] Goal Plan of Care Note [code = 91728-1] Goal Plan of Care Note [code = 80046-3] Goal Plan of Care Note [code = 29531-9] Goal Plan of Care Note [code = 04477-6] Goal Plan of Care Note [code = 90674-4] Goal Plan of Care Note [code = 40990-2] Goal Plan of Care Note [code = 51793-2] Goal Plan of Care Note [code = 94070-4] Goal Plan of Care Note [code = 63605-9] Goal Plan of Care Note [code = 18652-6] Goal Plan of Care Note [code = 15297-7] Goal Plan of Care Note [code = 23207-7] Goal Plan of Care Note [code = 25486-5] Goal Plan of Care Note [code = 56736-6] Goal Plan of Care Note [code = 63753-2] Goal Plan of Care Note [code = 82584-6] Goal Plan of Care Note [code = 60143-9] Goal Plan of Care Note [code = 33116-7] Goal Plan of Care Note [code = 61862-3] Goal Plan of Care Note [code = 31107-9] Goal Plan of Care Note [code = 38096-0] Goal Plan of Care Note [code = 31018-5] Goal Plan of Care Note [code = 24167-7] Goal Plan of Care Note [code = 65446-8] Goal Plan of Care Note [code = 79212-8] Goal Plan of Care Note [code = 22748-3] Goal Plan of Care Note [code = 56090-3] Goal Plan of Care Note [code = 73797-7] Goal Plan of Care Note [code = 72711-0] Goal Plan of Care Note [code = 04930-3] Goal Plan of Care Note [code = 38035-8] Goal Plan of Care Note [code = 12101-5] Goal Plan of Care Note [code = 98569-9] Encounters Start End Encounter Admission Attending Care Care Encounter Source Date/Time Date/Time Type Type Clinicians Facility Department ID 2021-12-10 [facility] [id number] Common 11:59:45 [id number] [facility] 2021-12-10 Outpatient Nichelle, [facility] [id number] Common 11:55:33 Amairani [id number] [facility] 2021-12-10 Outpatient Nichelle, [facility] [id number] Common 11:47:42 Amairani [id number] [facility] 2021-12-10 Outpatient Nichelle, [facility] [id number] Common 11:31:54 Amairani [id number] [facility] 2023-08-03 2023-08-03 Telephone Shayna [facility] 1.2.840.114 [id number] Univers 00:00:00 00:00:00 Ember HOLLEYPEC 350.1.13.10 ity of [place] 4.2.7.2.686 [facility] [place] [phone] [address] DIABETES [facility] 2023-07-22 2023-07-22 Outpatient R EMBER MENA [facility] [id number] Univers 13:00:00 13:14:33 EMBER MENA ity [facility] 2023-07-22 2023-07-22 Office Shayna [facility] 1.2.148.872 [id number] Univers 13:00:00 13:14:33 Visit Ember MADDEN 350.1.13.10 ity of [place] 4.2.7.2.68[facility] s [place] [id number] [address] [facility]ES [facility] 2023-07-22 2023-07-22 Letter Shayna [facility] 1.2.350.606 [id number] Univers 00:00:00 00:00:00 (Out) Ember MADDEN 350.1.13.10 ity of [place] 4.2.7.2.686 [facility] [place] [id number] [address] DIABETES [facility]INIC 2023-07-22 2023-07-22 Telephone Shayna [facility] 1.2.840.114 [id number] Univers 00:00:00 00:00:00 Danyell T MULTISPEC 350.1.13.10 ity of [place] 4.2.7.2.686 [facility] [place] [id number] [address] DIABETES CLINIC 2023-07-08 2023-07-08 Vice President Of Procurement [facility] 1.2 .840.114 [id number] Univers 15:00:00 15:15:00 Visit Atanasov, Strahil [place] 350.1.13. 10 it[place] [phone] [facility] [address] 2023-07-08 2023-07-08 Outpatient R EMBER MENA [facility] [id number] Univers 15:00:00 15:00:00 ATAEMBER CARLIN ity of [facility] 2023-07-08 2023-07-08 Letter Doctor UMESH 1.2.840.114 [id number] Univers 00:00:00 00:00:00 (Out) Unassigned, PAULO 350.1.13.10 it[place] of [place] [facility] 4.2.7.2.686 Raghu as [phone] [facility] [address] 2023-07-08 2023-07-08 Orders Doctor UMESH 1.2.840.114 [id number] Univers 00:00:00 00:00:00 Only Unassigned, PAULO 350.1.13.10 ity of [place] [facility] 4.2.7.2.686 Raghu as [id number] [facility] [address] 2023-06-24 2023-06-24 Outpatient SFA SFA [id number] Mark 17:15:02 17:15:02 0810 [facility] 2023-06-08 2023-06-08 Telephone Shayna [facility] 1.2.840.114 10 [id number] Univers 00:00:00 00:00:00 [facility] [place] 350.1.13.10 it[place] of [place].2.686 [place] [facility] [id number] [place] [id number] [facility] 2023-04-26 2023-04-26 Outpatient SFA SFA [id number] Mark 11:09:48 11:09:48 0612 [facility] [place] 2023-03-24 2023-03-24 Outpatient SFA SFA [id number] 023 Mark 10:36:38 10:36:38 0510 [place] 2023-03-22 2023-03-22 Transition ADELE Velazquez 1.2.840.114 [id number] Univers 00:00:00 00:00:00 of Care Reina MONCADA 350.1.13.10 [place] of [place] [id number] [facility] [address] 2023-03-16 2023-03-19 Inpatient X JESUS [facility] CELSA [id number] Univers 09:41:00 14:10:00 CHIRAG reyes [facility] 2023-03-16 2023-03-19 [facility] Jay Samuel [facility] 1.2.840. 114 [id number] Univers 09:41:00 14:10:00 Encounter Chirag Lee 350.1.13.10 it[place] [id number] [facility] [address] 2023-02-11 2023-02-11 Outpatient SFA SFA [id number] Mark 16:24:05 16:24:05 0330 [place] 2023-01-19 2023-01-19 Letter Zenaida, [facility] 1.2.840.114 [id number] Univers 00:00:00 00:00:00 (Out) General HEALTH 350.1.13.10 it y of Cardiology CLEAR 4.2.7.2.686 T [facility] [phone] [facility] [address] OFFICE BUILDING 2022-11-17 2022-11-17 Outpatient SFA SFA [id number] 023 Mark 09:48:02 09:48:02 0103 [place] 2022-11-13 2022-11-13 Outpatient SFA SFA [id number] 022 Mark 11:18:58 11:18:58 1230 [place] 2022-11-13 2022-11-13 Outpatient p2g781x2- [id number] c2 m865n5-7 00:00:00 00:00:00 Visit 3mi5-0d4z ee5-4d2f-b -l0n8-002 0g3-586308 299ws73r7 ff66c2 2022-10-20 2022-10-20 Outpatient SFA SFA [id number] 022 Mark 11:33:10 11:33:10 1206 [place] 2022-10-20 2022-10-20 Outpatient a3in8247- [id number] a2 qi7119-7 00:00:00 00:00:00 Visit 932e-4310 32e-4310-8 -04j8-783 3a5-093474 379a47g49 e47f35 2022-10-16 2022-10-16 Outpatient SFA SFA [id number] 022 Mark 08:22:31 08:22:31 1202 F [place] 2022-10-15 2022-10-15 Outpatient [id number]- [id number] 1hj0ij-8 00:00:00 00:00:00 Visit 2abe-4eb1 kathy-4eb1-8 -4g18-46e s48-26ak8i p4e1d8o16 4c1c31 2022-09-22 2022-09-22 Outpatient SFA SFA [id number] 022 Mark 11:21:57 11:21:57 1108 F [place] 2022-09-22 2022-09-22 Outpatient o58nd7mw- [id number] a9 6vq7wb-7 00:00:00 00:00:00 Visit 4cae-461d -461d-8 -849d-e84 49d-e3782h 98pzw6f31 bb5e70 2022-08-26 2022-08-26 Outpatient SFA SFA [id number] Mark 13:15:53 13:15:53 1012 F [place] 2022-08-25 2022-08-25 Outpatient SFA SFA [id number] 022 Mark 13:03:07 13:03:07 1011 F [place] 2022-08-24 2022-08-24 Outpatient pke27ru6- [id number] ut f06nc1-5 00:00:00 00:00:00 Visit 2d6m-5694 f3o-3018-p -x05u-2gl 58e-1cdbbe swufs78b5 ad06a7 2022-08-07 2022-08-07 Outpatient 1c767e6p- [id number] 6b 000j0p-9 00:00:00 00:00:00 Visit 382e-4400 82e-4400-9 -9219-8d4 219-8d40bf 9gs7mn421 4ch735 2022-06-18 2022-06-18 Outpatient 3989r3j4- [id number] 04z3i1-3 00:00:00 00:00:00 Visit 5bg5-6t18 ea5-4b57-b -bfdc-954 [facility]-465393 617vv150e pz629y 2022-06-04 2022-06-04 Outpatient 2k9l5oua- [id number] 4f 6e2qko-7 00:00:00 00:00:00 Visit 8y50-07o2 k30-98c4-4 -877d-222 77d-2220f2 2q6o2o881 d0z277 2022-06-02 2022-06-02 Orders Doctor UMESH 1.2.840.114 [id number] Univers 00:00:00 00:00:00 Only Unassigned, PAULO 350.1.13.[address] [facility] 4.2.7.2.686 Raghu as [phone] [facility] [address] 2022-05-29 2022-05-29 Outpatient 4mux38gu- [id number] 8c ed81vk-3 00:00:00 00:00:00 Visit 387b-495e 87b-495e-8 -8999-faa 999-faa70e 91y09w382 96r060 2020-10-21 2020-10-21 Telephone Shayna [facility] 1.2.840.114 [id number] [facility] 00:00:00 00:00:00 Ember Real 350.1.13.10 ity of [place].686 [place] [facility] [phone] Nv dical [facility] 2020-10-18 2020-10-18 Outpatient R EMBER MENA [facility] [id number] Univers 19:30:00 19:30:00 EMBER MENA itkali of [facility] 2020-10-18 2020-10-18 Vice President Of Procurement 1, [facility] Sleep Lab Bed [facility] 1. 2.840.114 [id number] [facility] 12:53:38 15:23:38 Visit Ember Mena [place] 350.1.13. 10 ity of [place] [phone] [facility] [address] 2020-10-16 2020-10-16 Laboratory Only, Adc Test [facility] 1.2.840. 114 [id number] Univers 11:00:02 11:15:02 Only [place] 350.1.13.10 ity of [place] 4.2.7.2.686 [facility] [id number] [facility] [address] 2020-10-16 2020-10-16 Outpatient R [facility] [id number] Univers 11:00:00 11:00:00 ity of [facility] 2020-10-16 2020-10-16 Outpatient R [facility] [id number] Univers 09:00:00 09:00:00 ity of [facility] 2020-10-16 2020-10-16 Orders Doctor UMESH 1.2.840.114 [id number] Univers 00:00:00 00:00:00 Only Unassigned, PAULO 350.1.13.10 [facility] 4.2.7.2.686 Raghu [id number] [facility] [address] 2020-10-16 2020-10-16 Letter Shayna [facility] 1.2.711.822 [id number] Univers 00:00:00 00:00:00 (Out) Ember Real 350.1.13.10 ity of [place] 4.2.7.2.686 [facility] [id number] [address] 2020-10-02 2020-10-02 Office Shayna [facility] 1.2.380.001 [id number] Univers 11:38:35 12:08:35 Visit Ember Real 350.1.13.10 ity of [place] 4.2.7.2.686 [facility] [id number] Nv dical nal 085 [facility] 2020-10-02 2020-10-02 Outpatient R EMBER MENA [facility] [id number] Univers 11:00:00 11:00:00 EMBER MENA ity of [facility] 2020-09-24 2020-09-24 Vice President Of Procurement Tech, Tam Sleep Lab [facility] 1.2 .840.114 [id number] Univers 13:15:18 13:30:18 Visit MarkDanyel carlincatherine Cherelle Real 350.1.13. 10 ity of [place] 4.2.7.2.686 [facility] [id number] [facility] [address] 2020-09-24 2020-09-24 Outpatient R ELISEO MENAFRIEDACatherine [facility] [id number] Univers 13:00:00 13:00:00 SHAYNA EMBER ity of [facility] 2020-09-24 2020-09-24 Letter Shayna [facility] 1.2.143.297 [id number] Univers 00:00:00 00:00:00 (Out) Ember Cherelle Farhan 350.1.13.10 ity of [place] 4.2.7.2.686 [facility] [phone] [facility] [address] 2020-09-23 2020-09-23 Laboratory Only, Adc Test [facility] 1.2.840. 114 [id number] Univers 08:44:40 08:59:40 Only Steve [place] 350.1.13.10 ity of [place] 4.2.7.2.686 [facility] [id number] [facility] [address] 2020-09-23 2020-09-23 Outpatient R [facility] [id number] Univers 08:00:00 08:00:00 ity of [facility] 2020-09-23 2020-09-23 Orders Doctor CALVO 1.2.840.114 [id number] Univers 00:00:00 00:00:00 Only Unassigned, PAULO 350.1.13.10 ity of [place] [facility] 4.2.7.2.686 [facility] [id number] [facility] [address] 2020-09-20 2020-09-20 Outpatient R [facility] [id number] Univers 13:15:00 13:15:00 ity of [facility] 2020-09-17 2020-09-17 Outpatient R MARKELISEO CARLINMUSTAPHA [facility] [id number] Univers 10:00:00 10:00:00 SHAYNAELISEOMUSTAPHA ity of [facility] 2020-09-13 2020-09-13 Outpatient R [facility] [id number] Univers 08:00:00 08:00:00 ity of [facility] 2020-09-05 2020-09-05 Telephone [facility] 1.2.956.191 [id number] Univers 00:00:00 00:00:00 Milagro Real 350.1.13.10 it[place] [id number] [address] 2020-08-20 2020-08-20 Office [facility] 1.2.840.114 [id number] Univers 13:52:57 14:40:49 Visit Alexsanderrosangela Farhan 350.1.13.10 it[place] of [place] [facility] [phone] [address] 2020-08-20 2020-08-20 Outpatient R [facility] [id number] Univers 14:20:00 14:20:00 MILAGRO reyes o f [facility] 2020-08-20 2020-08-20 Refill [facility] 1.2.840.114 [id number] Univers 00:00:00 00:00:00 Doylephanirosangela Real 350.1.13.10 it[place] of [place] [id number] [address] 2020-08-14 2020-08-14 [facility] 1.2.840.114 [id number] Univers 11:41:00 15:20:00 Yuriy Real 350.1.13.10 ity of [place].2.686 [place] [id number] [facility] [address] 2020-08-14 2020-08-14 Emergency X [facility] ERT [id number] Univers 11:28:00 11:28:00 ity of [facility] 2020-07-30 2020-07-30 Transition Adele Olson 1.2.840.114 [id number] Univers 00:00:00 00:00:00 of Care Donnie [place] 350.1.13.10 ity of [place].2.[place] [phone] [address] 2020-07-30 2020-07-30 Transition Adele Olson 1.2.840.114 [id number] 00:00:00 00:00:00 of Care Donnie Monc[place] 350.1.13.10 [place] 4.2.7.2.686 [id number] [facility] 2020-07-27 2020-07-27 Outpatient X AL BLOCK [facility] [id number] [facility] 14:07:00 14:07:00 [facility] Test Description Test Time Test Comments Results Result Comments Source AMYLASE 2023-03-25 12:56:45 Test Item Value Reference Range Interpretation Comme nts AMYLASE (test code = 2205) 111 U/L 28-100 H [id number] 12:56:45 Test Item Value Reference Range Interpretation Comments LIPASE (test code = 162 U/L 13-60 H UNLESS OTHERWISE 2057) INDICATED, ALL TESTING PERFORMED AT [facility] PATHOLOGY [employer] [address] [place] [address] DIRECTOR: Nick HUSSEIN KAMAR NUMBER [id number] CAP ACCREDITATION N O. [id number] POCT GLUCOSE (AUTOMATED)2023-03-19 16:42:31 Test Item Value Reference Range Interpretation Comments POCT GLU (test code = 5090222784) 202 mg/dL 70-110 H Lab Interpretation (test code = Abnormal 94362-6) [facility] GLUCOSE (AUTOMATED)2023-03-19 13:05:38 Test Item Value Reference Range Interpretation Comments POCT GLU (test code = 9633078922) 106 mg/dL 70-110 Lab Interpretation (test code = Normal 50245-4) [facility] GLUCOSE (AUTOMATED)2023-03-18 21:29:37 Test Item Value Reference Range Interpretation Comments POCT GLU (test code = 2054600305) 152 mg/dL 70-110 H Lab Interpretation (test code = Abnormal 53824-0) [facility] GLUCOSE (AUTOMATED)2023-03-18 16:45:34 Test Item Value Reference Range Interpretation Comments POCT GLU (test code = 1431430353) 160 mg/dL 70-110 H Lab Interpretation (test code = Abnormal 55262-7) [facility] GLUCOSE (AUTOMATED)2023-03-18 12:58:36 Test Item Value Reference Range Interpretation Comments POCT GLU (test code = 4391521326) 115 mg/dL 70-110 H Lab Interpretation (test code = Abnormal 87906-0) [facility] GLUCOSE (AUTOMATED)2023-03-18 01:20:08 Test Item Value Reference Range Interpretation Comments POCT GLU (test code = 8402943937) 167 mg/dL 70-110 H Lab Interpretation (test code = Abnormal 32790-6) [facility] GLUCOSE (AUTOMATED)2023-03-17 22:11:00 Test Item Value Reference Range Interpretation Comments POCT GLU (test code = 7642061239) 136 mg/dL 70-110 H Lab Interpretation (test code = Abnormal 67244-1) [facility] GLUCOSE (AUTOMATED)2023-03-17 17:05:10 Test Item Value Reference Range Interpretation Comments POCT GLU (test code = 5691875288) 118 mg/dL 70-110 H Lab Interpretation (test code = Abnormal 44396-6) [facility] GLUCOSE (AUTOMATED)2023-03-17 12:46:47 Test Item Value Reference Range Interpretation Comments POCT GLU (test code = 8889878116) 119 mg/dL 70-110 H Lab Interpretation (test code = Abnormal 25567-9) [facility]28[facility]TOTAL CHOLESTEROL, TRIGLYCERIDES, HDL)2023-03-17 09:03:36 Test Item Value Reference Range Interpretation Comments CHOL (test code = 9916334272) 156 mg/dL 120-200 HDL (test code = 5390868414) 31 mg/dL >=40 L HDLC RATIO (test code = 8635260267) 5.0 <=5.0 TRIG (test code = 5343526710) 196 mg/dL 30-170 H LDL CHOL (test code = 72579-7) 86 mg/dL <=160 VLDL (test code = 1740485747) 39 mg/dL 5-60 Lab Interpretation (test code = Abnormal 06118-5) [facility] GLUCOSE (AUTOMATED)2023-03-17 01:29:22 Test Item Value Reference Range Interpretation Comments POCT GLU (test code = 3390721116) 106 mg/dL 70-110 Lab Interpretation (test code = Normal 99711-7) [facility]2023-03-16 22:17:54 Test Item Value Reference Range Interpretation Comments POCT GLU (test code = 4671659311) 132 mg/dL 70-110 H Lab Interpretation (test code = Abnormal 26396-5) [facility] [id number] 15:57:44 Test Item Value Reference Range Interpretation Comments TROPONIN I (test code = 0.001 ng/mL <=0.034 6560573225) ZAIDA (test code = ZAIDA) Reference (Normal) Range (defined by the 99th percentile reference limit): <= 0.034 ng/mL Note: Cardiac troponin begins to rise 3-4 hours after the onset of ischemia. Repeat in 4-6 hours if the sample was drawn within 3-4 hours of the onset of the symptom and found normal. Diagnosis of myocardial injury is made with acute changes in cTn concentrations with at least one serial sample above the 99th percentile upper reference limit (URL), taken together with the patient's clinical presentation. Biotin has been reported to cause a negative bias, interpret results relative to patient's use of biotin. Lab Interpretation Normal (test code = 05316-9) [facility] [id number] 15:54:03 Test Item Value Reference Range Interpretation Comments NT-proBNP (test code = 20 pg/mL <=125 0439801095) ZAIDA (test code = ZAIDA) Biotin has been reported to cause a negative bias, interpret results relative to patient's use of biotin. Lab Interpretation (test Normal code = 78781-3) [facility]OLIC PANEL (06089)2023-03-16 15:47:26 Test Item Value Reference Range Interpretation Comments NA (test code = 136 mmol/L 135-145 4030319134) K (test code = 4.4 mmol/L 3.5-5.0 8343934390) CL (test code = 95 mmol/L 98-108 L 7814842172) CO2 TOTAL (test code = 33 mmol/L 23-31 H 6368402145) AGAP (test code = 8 2-16 9515630688) BUN (test code = 11 mg/dL 7-23 0772467137) GLUCOSE (test code = 247 mg/dL 70-110 H 0347259138) CREATININE (test code = 1.07 mg/dL 0.60-1.25 9246843221) TOTAL BILI (test code = 1.1 mg/dL 0.1-1.8 8342317202) CALCIUM (test code = 8.4 mg/dL 8.6-10.6 L 0689814204) T PROTEIN (test code = 7.5 g/dL 6.3-8.2 9262971962) ALBUMIN (test code = 3.8 g/dL 3.5-5.0 6858499628) ALK PHOS (test code = 121 U/L 34-122 5024965815) ALTv (test code = 29 U/L 5-50 2-6) AST(SGOT) (test code = 28 U/L 13-40 0763384131) eGFR (test code = 72.0 mL/min/1.73m2 7633411825) ZAIDA (test code = ZAIDA) Association of [...] tests). Lab Interpretation Abnormal (test code = 61420-5) [facility] 15:46:45 Test Item Value Reference Range Interpretation Comments LIPASE (test code = 8562641702) 140 U/L 0-220 Lab Interpretation (test code = Normal 56108-5) [facility] WITH [id number] 15:28:41 Test Item Value Reference Range Interpretation Comments WBC (test code = 14.39 See_Comment H [Automated 6690-2) message] The system which generated this result transmit juan reference range : 4.20 - 10.70 10*3/?L. The reference range was not used to interpret this result as normal/abnormal . RBC (test code = 5.94 See_Comment H [Automated 789-8) message] The system which generated this result transmit juan reference range : 4.26 - 5.52 10*6/?L. The reference range was not used to interpret this result as normal/abnormal . HGB (test code = 12.9 g/dL 12.2-16.4 718-7) HCT (test code = 45.4 % 38.4-49.3 4544-3) MCV (test code = 76.4 fL 81.7-95.6 L 787-2) MCH (test code = 21.7 pg 26.1-32.7 L 785-6) MCHC (test code = 28.4 g/dL 31.2-35.0 L 786-4) RDW-SD (test code = 39.3 fL 38.5-51.6 39303-2) RDW-CV (test code = 14.6 % 12.1-15.4 788-0) PLT (test code = 246 See_Comment [Automated 777-3) message] The system which generated this result transmit juan reference range : 150 - 328 10*3/ ?L. The reference range was not u sed to interpret th is result as normal/abnormal . MPV (test code = 10.8 fL 9.8-13.0 46611-9) NRBC/100 WBC (test 0.0 See_Comment [Automat ed code = 8824470617) message] The system which generated this result transmit juan reference range : 0.0 - 10.0 /100 WBCs. The reference range was not used to interpret this result as normal/abnormal . NRBC x10^3 (test code See_Comment [Auto mated = 5723512675) message] The system which generated this result transmit juan reference range : 10*3/?L. The reference range was not used to interpret this result as normal/abnormal . GRAN MAT (NEUT) % 73.6 % (test code = 770-8) IMM GRAN % (test code 0.40 % = 2060581488) LYMPH % (test code = 12.4 % 736-9) MONO % (test code = 9.9 % 5905-5) EOS % (test code = 3.4 % 713-8) BASO % (test code = 0.3 % 706-2) GRAN MAT x10^3(ANC) 10.60 10*3/uL 1.99-6.95 H (test code = 8806541395) IMM GRAN x10^3 (test 0.06 10*3/uL 0.00-0.06 code = 4366792570) LYMPH x10^3 (test code 1.78 10*3/uL 1.09-3.23 = 731-0) MONO x10^3 (test code 1.42 10*3/uL 0.36-1.02 H = 742-7) EOS x10^3 (test code = 0.49 10*3/uL 0.06-0.53 711-2) BASO x10^3 (test code 0.04 10*3/uL 0.01-0.09 = 704-7) Lab Interpretation Abnormal (test code = 37991-1) [facility]2023-03-16 14:50:50 Test Item Value Reference Range Interpretation Comments POCT GLU (test code = 3209834202) 249 mg/dL 70-110 H Lab Interpretation (test code = Abnormal 00738-6) [facility], [id number] 09:03:37SPECIMEN NUMBER: [id number] CULTURE, URINE SPECIMEN NUMBER: [id number] SPECIMEN COMMENT: URINE SOURCE:URINE REPORT STATUS: FINAL FINAL REPORT: 06/08/2022 >100,000 CFU/ML UROGENITAL HOLLIS PRESENT NO COMMON PATHOGENS UNLESS OTHERWISE INDICATED, ALL TESTING PERFORMED [facility] [address] [place] [address] TALENT ACQUISITION ASSISTANT: JACINTA HAYDEN M.D. CLIA NUMBER [id number] [facility] [place]. [id number], [id number] 00:00:00 Test Item Value Reference Range Interpretation Comments CULTURE, URINE (test SPECIMEN NUMBER: code = 72287) [id number] CULTURE, [id number] 00:00:00 Test Item Value Reference Range Interpretation Comments CULTURE, URINE (test SPECIMEN NUMBER: code = 18224) [id number] CULTURE, [id number] 00:00:00 Test Item Value Reference Range Interpretation Comments CULTURE, URINE (test SPECIMEN NUMBER: code = 93791) [id number] CULTURE, [id number] 00:00:00 Test Item Value Reference Range Interpretation Comments CULTURE, URINE (test SPECIMEN NUMBER: code = 76231) [id number] CULTURE, [id number] 00:00:00 Test Item Value Reference Range Interpretation Comments CULTURE, URINE (test SPECIMEN NUMBER: code = 21961) [id number] CULTURE, [id number] 00:00:00 Test Item Value Reference Range Interpretation Comments CULTURE, URINE (test SPECIMEN NUMBER: code = 50363) [id number] CULTURE, [id number] 00:00:00 Test Item Value Reference Range Interpretation Comments CULTURE, URINE (test SPECIMEN NUMBER: code = 68599) [id number] CULTURE, [id number] 00:00:00 Test Item Value Reference Range Interpretation Comments CULTURE, URINE (test SPECIMEN NUMBER: code = 03598) [id number] CULTURE, [id number] 00:00:00 Test Item Value Reference Range Interpretation Comments CULTURE, URINE (test SPECIMEN NUMBER: code = 93737) [id number] CULTURE, [id number] 00:00:00 Test Item Value Reference Range Interpretation Comments CULTURE, URINE (test SPECIMEN NUMBER: code = 68524) [id number] CULTURE, [id number] 00:00:00 Test Item Value Reference Range Interpretation Comments CULTURE, URINE (test SPECIMEN NUMBER: code = 57924) [id number] CULTURE, [id number] 00:00:00 Test Item Value Reference Range Interpretation Comments CULTURE, URINE (test SPECIMEN NUMBER: code = 19913) [id number] CULTURE, [id number] 00:00:00 Test Item Value Reference Range Interpretation Comments CULTURE, URINE (test SPECIMEN NUMBER: code = 16929) [id number] HEMOGLOBIN [id number] 07:18:13 Test Item Value Reference Range Interpretation Comments HEMOGLOBIN A1c (test 9.3 % 4.2-5.6 H [employer] code = 75680) ASSOCIATION [employer] FOR HGB A1C: PREDIABETES/INC REASED [...] UNLESS OTHERWIS E INDICATED, ALL TESTING PER FORMED ATCLINICAL PATH [facility], [place] [address] LABORATORY DIRE CTOR: JACINTA HAYDEN M.D. CLIA NUMBER [id number] [facility] [place]. [id number] HEMOGLOBIN [id number] 00:00:00 Test Item Value Reference Range Interpretation Comments HEMOGLOBIN A1c (test code = 69077) 9.3 % HEMOGLOBIN [id number] 00:00:00 Test Item Value Reference Range Interpretation Comments HEMOGLOBIN A1c (test code = 81423) 9.3 % HEMOGLOBIN [id number] 00:00:00 Test Item Value Reference Range Interpretation Comments HEMOGLOBIN A1c (test code = 60365) 9.3 % HEMOGLOBIN [id number] 00:00:00 Test Item Value Reference Range Interpretation Comments HEMOGLOBIN A1c (test code = 79682) 9.3 % HEMOGLOBIN [id number] 00:00:00 Test Item Value Reference Range Interpretation Comments HEMOGLOBIN A1c (test code = 52424) 9.3 % HEMOGLOBIN [id number] 00:00:00 Test Item Value Reference Range Interpretation Comments HEMOGLOBIN A1c (test code = 67686) 9.3 % HEMOGLOBIN [id number] 00:00:00 Test Item Value Reference Range Interpretation Comments HEMOGLOBIN A1c (test code = 24177) 9.3 % HEMOGLOBIN [id number] 00:00:00 Test Item Value Reference Range Interpretation Comments HEMOGLOBIN A1c (test code = 29428) 9.3 % HEMOGLOBIN [id number] 00:00:00 Test Item Value Reference Range Interpretation Comments HEMOGLOBIN A1c (test code = 40419) 9.3 % HEMOGLOBIN [id number] 00:00:00 Test Item Value Reference Range Interpretation Comments HEMOGLOBIN A1c (test code = 41890) 9.3 % HEMOGLOBIN [id number] 00:00:00 Test Item Value Reference Range Interpretation Comments HEMOGLOBIN A1c (test code = 62937) 9.3 % HEMOGLOBIN [id number] 00:00:00 Test Item Value Reference Range Interpretation Comments HEMOGLOBIN A1c (test code = 61309) 9.3 % HEMOGLOBIN [id number] 00:00:00 Test Item Value Reference Range Interpretation Comments HEMOGLOBIN A1c (test code = 57206) 9.3 % HEMOGLOBIN [id number] 00:00:00 Test Item Value Reference Range Interpretation Comments HEMOGLOBIN A1c (test code = 31070) 9.3 % HEMOGLOBIN [id number] 00:00:00 Test Item Value Reference Range Interpretation Comments HEMOGLOBIN A1c (test code = 78563) 9.3 % HEMOGLOBIN [id number] 00:00:00 Test Item Value Reference Range Interpretation Comments HEMOGLOBIN A1c (test code = 25746) 9.3 % HEMOGLOBIN [id number] 00:00:00 Test Item Value Reference Range Interpretation Comments HEMOGLOBIN A1c (test code = 49030) 9.3 % HEMOGLOBIN [id number] 00:00:00 Test Item Value Reference Range Interpretation Comments HEMOGLOBIN A1c (test code = 59458) 9.3 % HEMOGLOBIN [id number] 00:00:00 Test Item Value Reference Range Interpretation Comments HEMOGLOBIN A1c (test code = 64712) 9.3 % HEMOGLOBIN [id number] 00:00:00 Test Item Value Reference Range Interpretation Comments HEMOGLOBIN A1c (test code = 95504) 9.3 % HEMOGLOBIN [id number] 00:00:00 Test Item Value Reference Range Interpretation Comments HEMOGLOBIN A1c (test code = 84113) 9.3 % HEMOGLOBIN [id number] 00:00:00 Test Item Value Reference Range Interpretation Comments HEMOGLOBIN A1c (test code = 20671) 9.3 % SEDIMENTATION [id number] 00:00:00 Test Item Value Reference Range Interpretation Comments SEDIMENTATION RATE (test code = 5 MM/HOUR 1017) HEMOGLOBIN [id number] 00:00:00 Test Item Value Reference Range Interpretation Comments HEMOGLOBIN A1c (test code = 98086) 8.7 % HEMOGLOBIN [id number] 00:00:00 Test Item Value Reference Range Interpretation Comments HEMOGLOBIN A1c (test code = 81867) 8.7 % HEMOGLOBIN [id number] 00:00:00 Test Item Value Reference Range Interpretation Comments HEMOGLOBIN A1c (test code = 81068) 8.7 % LIPID [id number] 00:00:00 Test Item Value Reference Range Interpretation Comments CHOLESTEROL (test code = 2210) 241 MG/DL TRIGLYCERIDES (test code = 2232) 344 MG/DL HDL CHOLESTEROL (test code = 2220) 48 MG/DL CALC LDL CHOL (test code = 2237) 140 MG/DL RISK RATIO LDL/HDL (test code = 2.92 RATIO 2238) LIPID [id number] 00:00:00 Test Item Value Reference Range Interpretation Comments CHOLESTEROL (test code = 2210) 241 MG/DL TRIGLYCERIDES (test code = 2232) 344 MG/DL HDL CHOLESTEROL (test code = 2220) 48 MG/DL CALC LDL CHOL (test code = 2237) 140 MG/DL RISK RATIO LDL/HDL (test code = 2.92 RATIO 2238) COMPREHENSIVE METABOLIC [id number] 00:00:00 Test Item Value Reference Range Interpretation Comments GLUCOSE (test code = 2217) 255 MG/DL BUN (test code = 2208) 16 MG/DL CREATININE (test code = 2214) 1.27 MG/DL eGFR (2020 CKD-EPI) (test code 68 ML/MIN/1.73 = 09176) CALC BUN/CREAT (test code = 13 RATIO [...] code = 2219) 39 U/L COMPREHENSIVE METABOLIC [id number] 00:00:00 Test Item Value Reference Range Interpretation Comments GLUCOSE (test code = 2217) 255 MG/DL BUN (test code = 2208) 16 MG/DL CREATININE (test code = 2214) 1.27 MG/DL eGFR (2020 CKD-EPI) (test code 68 ML/MIN/1.73 = 98672) CALC BUN/CREAT (test code = 13 RATIO [...] (test code = 2219) 39 U/L URIC [id number] 00:00:00 Test Item Value Reference Range Interpretation Comments URIC ACID (test code = 2233) 5.4 MG/DL URIC [id number] 00:00:00 Test Item Value Reference Range Interpretation Comments URIC ACID (test code = 2233) 5.4 MG/DL MICROALBUMIN/CREATININE, RANDOM AND [id number] 00:00:00 Test Item Value Reference Range Interpretation Comments CREATININE, URINE, CONC. (test 88.0 MG/DL code = 2072) ALBUMIN, URINE, RANDOM (test code 19.5 MG/DL = 30427) CALC ALBUMIN/CREAT, RND (test code 222 MG/G = 77159) MICROALBUMIN/CREATININE, RANDOM AND [id number] 00:00:00 Test Item Value Reference Range Interpretation Comments CREATININE, URINE, CONC. (test 88.0 MG/DL code = 2072) ALBUMIN, URINE, RANDOM (test code 19.5 MG/DL = 30241) CALC ALBUMIN/CREAT, RND (test code 222 MG/G = 26527) SEDIMENTATION [id number] 00:00:00 Test Item Value Reference Range Interpretation Comments SEDIMENTATION RATE (test code = 5 MM/HOUR 1017) SEDIMENTATION [id number] 00:00:00 Test Item Value Reference Range Interpretation Comments SEDIMENTATION RATE (test code = 5 MM/HOUR 1017) HEMOGLOBIN [id number] 00:00:00 Test Item Value Reference Range Interpretation Comments HEMOGLOBIN A1c (test code = 58081) 8.7 % HEMOGLOBIN [id number] 00:00:00 Test Item Value Reference Range Interpretation Comments HEMOGLOBIN A1c (test code = 50087) 8.7 % LIPID [id number] 00:00:00 Test Item Value Reference Range Interpretation Comments CHOLESTEROL (test code = 2210) 241 MG/DL TRIGLYCERIDES (test code = 2232) 344 MG/DL HDL CHOLESTEROL (test code = 2220) 48 MG/DL CALC LDL CHOL (test code = 2237) 140 MG/DL RISK RATIO LDL/HDL (test code = 2.92 RATIO 2238) HEMOGLOBIN [id number] 00:00:00 Test Item Value Reference Range Interpretation Comments HEMOGLOBIN A1c (test code = 84543) 8.7 % HEMOGLOBIN [id number] 00:00:00 Test Item Value Reference Range Interpretation Comments HEMOGLOBIN A1c (test code = 47162) 8.7 % HEMOGLOBIN [id number] 00:00:00 Test Item Value Reference Range Interpretation Comments HEMOGLOBIN A1c (test code = 02797) 8.7 % LIPID [id number] 00:00:00 Test Item Value Reference Range Interpretation Comments CHOLESTEROL (test code = 2210) 241 MG/DL TRIGLYCERIDES (test code = 2232) 344 MG/DL HDL CHOLESTEROL (test code = 2220) 48 MG/DL CALC LDL CHOL (test code = 2237) 140 MG/DL RISK RATIO LDL/HDL (test code = 2.92 RATIO 2238) LIPID [id number] 00:00:00 Test Item Value Reference Range Interpretation Comments CHOLESTEROL (test code = 2210) 241 MG/DL TRIGLYCERIDES (test code = 2232) 344 MG/DL HDL CHOLESTEROL (test code = 2220) 48 MG/DL CALC LDL CHOL (test code = 2237) 140 MG/DL RISK RATIO LDL/HDL (test code = 2.92 RATIO 2238) COMPREHENSIVE METABOLIC [id number] 00:00:00 Test Item Value Reference Range Interpretation Comments GLUCOSE (test code = 2217) 255 MG/DL BUN (test code = 2208) 16 MG/DL CREATININE (test code = 2214) 1.27 MG/DL eGFR (2020 CKD-EPI) (test code 68 ML/MIN/1.73 = 37029) CALC BUN/CREAT (test code = 13 RATIO [...] code = 2219) 39 U/L COMPREHENSIVE METABOLIC [id number] 00:00:00 Test Item Value Reference Range Interpretation Comments GLUCOSE (test code = 2217) 255 MG/DL BUN (test code = 2208) 16 MG/DL CREATININE (test code = 2214) 1.27 MG/DL eGFR (2020 CKD-EPI) (test code 68 ML/MIN/1.73 = 27356) CALC BUN/CREAT (test code = 13 RATIO [...] (test code = 2219) 39 U/L URIC [id number] 00:00:00 Test Item Value Reference Range Interpretation Comments URIC ACID (test code = 2233) 5.4 MG/DL URIC [id number] 00:00:00 Test Item Value Reference Range Interpretation Comments URIC ACID (test code = 2233) 5.4 MG/DL MICROALBUMIN/CREATININE, RANDOM AND [id number] 00:00:00 Test Item Value Reference Range Interpretation Comments CREATININE, URINE, CONC. (test 88.0 MG/DL code = 2072) ALBUMIN, URINE, RANDOM (test code 19.5 MG/DL = 80774) CALC ALBUMIN/CREAT, RND (test code 222 MG/G = 12471) MICROALBUMIN/CREATININE, RANDOM AND [id number] 00:00:00 Test Item Value Reference Range Interpretation Comments CREATININE, URINE, CONC. (test 88.0 MG/DL code = 2072) ALBUMIN, URINE, RANDOM (test code 19.5 MG/DL = 80176) CALC ALBUMIN/CREAT, RND (test code 222 MG/G = 80475) SEDIMENTATION [id number] 00:00:00 Test Item Value Reference Range Interpretation Comments SEDIMENTATION RATE (test code = 5 MM/HOUR 1017) SEDIMENTATION [id number] 00:00:00 Test Item Value Reference Range Interpretation Comments SEDIMENTATION RATE (test code = 5 MM/HOUR 1017) COMPREHENSIVE METABOLIC [id number] 00:00:00 Test Item Value Reference Range Interpretation Comments GLUCOSE (test code = 2217) 255 MG/DL BUN (test code = 2208) 16 MG/DL CREATININE (test code = 2214) 1.27 MG/DL eGFR (2020 CKD-EPI) (test code 68 ML/MIN/1.73 = 15328) CALC BUN/CREAT (test code = 13 RATIO [...] (test code = 2219) 39 U/L URIC [id number] 00:00:00 Test Item Value Reference Range Interpretation Comments URIC ACID (test code = 2233) 5.4 MG/DL MICROALBUMIN/CREATININE, RANDOM AND [id number] 00:00:00 Test Item Value Reference Range Interpretation Comments CREATININE, URINE, CONC. (test 88.0 MG/DL code = 2072) ALBUMIN, URINE, RANDOM (test code 19.5 MG/DL = 89770) CALC ALBUMIN/CREAT, RND (test code 222 MG/G = 94472) SEDIMENTATION [id number] 00:00:00 Test Item Value Reference Range Interpretation Comments SEDIMENTATION RATE (test code = 5 MM/HOUR 1017) HEMOGLOBIN [id number] 00:00:00 Test Item Value Reference Range Interpretation Comments HEMOGLOBIN A1c (test code = 78026) 8.7 % HEMOGLOBIN [id number] 00:00:00 Test Item Value Reference Range Interpretation Comments HEMOGLOBIN A1c (test code = 02569) 8.7 % HEMOGLOBIN [id number] 00:00:00 Test Item Value Reference Range Interpretation Comments HEMOGLOBIN A1c (test code = 71581) 8.7 % LIPID [id number] 00:00:00 Test Item Value Reference Range Interpretation Comments CHOLESTEROL (test code = 2210) 241 MG/DL TRIGLYCERIDES (test code = 2232) 344 MG/DL HDL CHOLESTEROL (test code = 2220) 48 MG/DL CALC LDL CHOL (test code = 2237) 140 MG/DL RISK RATIO LDL/HDL (test code = 2.92 RATIO 2238) LIPID [id number] 00:00:00 Test Item Value Reference Range Interpretation Comments CHOLESTEROL (test code = 2210) 241 MG/DL TRIGLYCERIDES (test code = 2232) 344 MG/DL HDL CHOLESTEROL (test code = 2220) 48 MG/DL CALC LDL CHOL (test code = 2237) 140 MG/DL RISK RATIO LDL/HDL (test code = 2.92 RATIO 2238) COMPREHENSIVE METABOLIC [id number] 00:00:00 Test Item Value Reference Range Interpretation Comments GLUCOSE (test code = 2217) 255 MG/DL BUN (test code = 2208) 16 MG/DL CREATININE (test code = 2214) 1.27 MG/DL eGFR (2020 CKD-EPI) (test code 68 ML/MIN/1.73 = 78599) CALC BUN/CREAT (test code = 13 RATIO [...] code = 2219) 39 U/L COMPREHENSIVE METABOLIC [id number] 00:00:00 Test Item Value Reference Range Interpretation Comments GLUCOSE (test code = 2217) 255 MG/DL BUN (test code = 2208) 16 MG/DL CREATININE (test code = 2214) 1.27 MG/DL eGFR (2020 CKD-EPI) (test code 68 ML/MIN/1.73 = 35673) CALC BUN/CREAT (test code = 13 RATIO [...] ALKALINE PHOSPHATASE (test 136 U/L code = 220) AST (test code = 2218) 19 U/L ALT (test code = 2219) 39 U/L URIC [id number] 00:00:00 Test Item Value Reference Range Interpretation Comments URIC ACID (test code = 2233) 5.4 MG/DL URIC [id number] 00:00:00 Test Item Value Reference Range Interpretation Comments URIC ACID (test code = 2233) 5.4 MG/DL MICROALBUMIN/CREATININE, RANDOM AND [id number] 00:00:00 Test Item Value Reference Range Interpretation Comments CREATININE, URINE, CONC. (test 88.0 MG/DL code = 2072) ALBUMIN, URINE, RANDOM (test code 19.5 MG/DL = 48849) CALC ALBUMIN/CREAT, RND (test code 222 MG/G = 02637) MICROALBUMIN/CREATININE, RANDOM AND [id number] 00:00:00 Test Item Value Reference Range Interpretation Comments CREATININE, URINE, CONC. (test 88.0 MG/DL code = 2072) ALBUMIN, URINE, RANDOM (test code 19.5 MG/DL = 31005) CALC ALBUMIN/CREAT, RND (test code 222 MG/G = 79109) SEDIMENTATION [id number] 00:00:00 Test Item Value Reference Range Interpretation Comments SEDIMENTATION RATE (test code = 5 MM/HOUR 1017) SEDIMENTATION [id number] 00:00:00 Test Item Value Reference Range Interpretation Comments SEDIMENTATION RATE (test code = 5 MM/HOUR 1017) HEMOGLOBIN [id number] 00:00:00 Test Item Value Reference Range Interpretation Comments HEMOGLOBIN A1c (test code = 02894) 8.7 % HEMOGLOBIN [id number] 00:00:00 Test Item Value Reference Range Interpretation Comments HEMOGLOBIN A1c (test code = 91838) 8.7 % HEMOGLOBIN [id number] 00:00:00 Test Item Value Reference Range Interpretation Comments HEMOGLOBIN A1c (test code = 89070) 8.7 % LIPID [id number] 00:00:00 Test Item Value Reference Range Interpretation Comments CHOLESTEROL (test code = 2210) 241 MG/DL TRIGLYCERIDES (test code = 2232) 344 MG/DL HDL CHOLESTEROL (test code = 2220) 48 MG/DL CALC LDL CHOL (test code = 2237) 140 MG/DL RISK RATIO LDL/HDL (test code = 2.92 RATIO 2238) LIPID [id number] 00:00:00 Test Item Value Reference Range Interpretation Comments CHOLESTEROL (test code = 2210) 241 MG/DL TRIGLYCERIDES (test code = 2232) 344 MG/DL HDL CHOLESTEROL (test code = 2220) 48 MG/DL CALC LDL CHOL (test code = 2237) 140 MG/DL RISK RATIO LDL/HDL (test code = 2.92 RATIO 2238) COMPREHENSIVE METABOLIC [id number] 00:00:00 Test Item Value Reference Range Interpretation Comments GLUCOSE (test code = 2217) 255 MG/DL BUN (test code = 2208) 16 MG/DL CREATININE (test code = 2214) 1.27 MG/DL eGFR (2020 CKD-EPI) (test code 68 ML/MIN/1.73 = 13768) CALC BUN/CREAT (test code = 13 RATIO [...] code = 2219) 39 U/L COMPREHENSIVE METABOLIC [id number] 00:00:00 Test Item Value Reference Range Interpretation Comments GLUCOSE (test code = 2217) 255 MG/DL BUN (test code = 2208) 16 MG/DL CREATININE (test code = 2214) 1.27 MG/DL eGFR (2020 CKD-EPI) (test code 68 ML/MIN/1.73 = 95250) CALC BUN/CREAT (test code = 13 RATIO [...] (test code = 2219) 39 U/L URIC [id number] 00:00:00 Test Item Value Reference Range Interpretation Comments URIC ACID (test code = 2233) 5.4 MG/DL URIC [id number] 00:00:00 Test Item Value Reference Range Interpretation Comments URIC ACID (test code = 2233) 5.4 MG/DL MICROALBUMIN/CREATININE, RANDOM AND [id number] 00:00:00 Test Item Value Reference Range Interpretation Comments CREATININE, URINE, CONC. (test 88.0 MG/DL code = 2072) ALBUMIN, URINE, RANDOM (test code 19.5 MG/DL = 12235) CALC ALBUMIN/CREAT, RND (test code 222 MG/G = 44135) MICROALBUMIN/CREATININE, RANDOM AND [id number] 00:00:00 Test Item Value Reference Range Interpretation Comments CREATININE, URINE, CONC. (test 88.0 MG/DL code = 2072) ALBUMIN, URINE, RANDOM (test code 19.5 MG/DL = 94689) CALC ALBUMIN/CREAT, RND (test code 222 MG/G = 92487) SEDIMENTATION [id number] 00:00:00 Test Item Value Reference Range Interpretation Comments SEDIMENTATION RATE (test code = 5 MM/HOUR 1017) SEDIMENTATION [id number] 00:00:00 Test Item Value Reference Range Interpretation Comments SEDIMENTATION RATE (test code = 5 MM/HOUR 1017) HEMOGLOBIN [id number] 00:00:00 Test Item Value Reference Range Interpretation Comments HEMOGLOBIN A1c (test code = 23959) 8.7 % HEMOGLOBIN [id number] 00:00:00 Test Item Value Reference Range Interpretation Comments HEMOGLOBIN A1c (test code = 01514) 8.7 % HEMOGLOBIN [id number] 00:00:00 Test Item Value Reference Range Interpretation Comments HEMOGLOBIN A1c (test code = 53147) 8.7 % LIPID [id number] 00:00:00 Test Item Value Reference Range Interpretation Comments CHOLESTEROL (test code = 2210) 241 MG/DL TRIGLYCERIDES (test code = 2232) 344 MG/DL HDL CHOLESTEROL (test code = 2220) 48 MG/DL CALC LDL CHOL (test code = 2237) 140 MG/DL RISK RATIO LDL/HDL (test code = 2.92 RATIO 2238) LIPID [id number] 00:00:00 Test Item Value Reference Range Interpretation Comments CHOLESTEROL (test code = 2210) 241 MG/DL TRIGLYCERIDES (test code = 2232) 344 MG/DL HDL CHOLESTEROL (test code = 2220) 48 MG/DL CALC LDL CHOL (test code = 2237) 140 MG/DL RISK RATIO LDL/HDL (test code = 2.92 RATIO 2238) COMPREHENSIVE METABOLIC [id number] 00:00:00 Test Item Value Reference Range Interpretation Comments GLUCOSE (test code = 2217) 255 MG/DL BUN (test code = 2208) 16 MG/DL CREATININE (test code = 2214) 1.27 MG/DL eGFR (2020 CKD-EPI) (test code 68 ML/MIN/1.73 = 53889) CALC BUN/CREAT (test code = 13 RATIO 2235) SODIUM (test code = 2231) 139 MEQ/L POTASSIUM (test code = 2228) 4.6 MEQ/L CHLORIDE (test code = 2215) 95 MEQ/L CARBON DIOXIDE (test code = 32 MEQ/L 2206) CALCIUM (test code = 2209) 9.9 MG/DL [...] code = 2219) 39 U/L COMPREHENSIVE METABOLIC [id number] 00:00:00 Test Item Value Reference Range Interpretation Comments GLUCOSE (test code = 2217) 255 MG/DL BUN (test code = 2208) 16 MG/DL CREATININE (test code = 2214) 1.27 MG/DL eGFR (2020 CKD-EPI) (test code 68 ML/MIN/1.73 = 32862) CALC BUN/CREAT (test code = 13 RATIO [...] (test code = 2219) 39 U/L URIC [id number] 00:00:00 Test Item Value Reference Range Interpretation Comments URIC ACID (test code = 2233) 5.4 MG/DL URIC [id number] 00:00:00 Test Item Value Reference Range Interpretation Comments URIC ACID (test code = 2233) 5.4 MG/DL MICROALBUMIN/CREATININE, RANDOM AND [id number] 00:00:00 Test Item Value Reference Range Interpretation Comments CREATININE, URINE, CONC. (test 88.0 MG/DL code = 2072) ALBUMIN, URINE, RANDOM (test code 19.5 MG/DL = 59512) CALC ALBUMIN/CREAT, RND (test code 222 MG/G = 00675) MICROALBUMIN/CREATININE, RANDOM AND [id number] 00:00:00 Test Item Value Reference Range Interpretation Comments CREATININE, URINE, CONC. (test 88.0 MG/DL code = 2072) ALBUMIN, URINE, RANDOM (test code 19.5 MG/DL = 76963) CALC ALBUMIN/CREAT, RND (test code 222 MG/G = 93935) SEDIMENTATION [id number] 00:00:00 Test Item Value Reference Range Interpretation Comments SEDIMENTATION RATE (test code = 5 MM/HOUR 1017) SEDIMENTATION [id number] 00:00:00 Test Item Value Reference Range Interpretation Comments SEDIMENTATION RATE (test code = 5 MM/HOUR 1017) HEMOGLOBIN [id number] 00:00:00 Test Item Value Reference Range Interpretation Comments HEMOGLOBIN A1c (test code = 60843) 8.7 % HEMOGLOBIN [id number] 00:00:00 Test Item Value Reference Range Interpretation Comments HEMOGLOBIN A1c (test code = 75279) 8.7 % LIPID [id number] 00:00:00 Test Item Value Reference Range Interpretation Comments CHOLESTEROL (test code = 2210) 241 MG/DL TRIGLYCERIDES (test code = 2232) 344 MG/DL HDL CHOLESTEROL (test code = 2220) 48 MG/DL CALC LDL CHOL (test code = 2237) 140 MG/DL RISK RATIO LDL/HDL (test code = 2.92 RATIO 2238) COMPREHENSIVE METABOLIC [id number] 00:00:00 Test Item Value Reference Range Interpretation Comments GLUCOSE (test code = 2217) 255 MG/DL BUN (test code = 2208) 16 MG/DL CREATININE (test code = 2214) 1.27 MG/DL eGFR (2020 CKD-EPI) (test code 68 ML/MIN/1.73 = 66700) CALC BUN/CREAT (test code = 13 RATIO 2234) SODIUM (test code = 2231) 139 MEQ/L [...] (test code = 2219) 39 U/L URIC [id number] 00:00:00 Test Item Value Reference Range Interpretation Comments URIC ACID (test code = 2233) 5.4 MG/DL MICROALBUMIN/CREATININE, RANDOM AND [id number] 00:00:00 Test Item Value Reference Range Interpretation Comments CREATININE, URINE, CONC. (test 88.0 MG/DL code = 2071) ALBUMIN, URINE, RANDOM (test code 19.5 MG/DL = 38771) CALC ALBUMIN/CREAT, RND (test code 222 MG/G = 52144) SEDIMENTATION [id number] 00:00:00 Test Item Value Reference Range Interpretation Comments SEDIMENTATION RATE (test code = 5 MM/HOUR 1017) HEMOGLOBIN [id number] 00:00:00 Test Item Value Reference Range Interpretation Comments HEMOGLOBIN A1c (test code = 18991) 8.7 % HEMOGLOBIN [id number] 00:00:00 Test Item Value Reference Range Interpretation Comments HEMOGLOBIN A1c (test code = 10880) 8.7 % LIPID [id number] 00:00:00 Test Item Value Reference Range Interpretation Comments CHOLESTEROL (test code = 2210) 241 MG/DL TRIGLYCERIDES (test code = 2232) 344 MG/DL HDL CHOLESTEROL (test code = 2220) 48 MG/DL CALC LDL CHOL (test code = 2237) 140 MG/DL RISK RATIO LDL/HDL (test code = 2.92 RATIO 2238) COMPREHENSIVE METABOLIC [id number] 00:00:00 Test Item Value Reference Range Interpretation Comments GLUCOSE (test code = 2217) 255 MG/DL BUN (test code = 2208) 16 MG/DL CREATININE (test code = 2214) 1.27 MG/DL eGFR (2020 CKD-EPI) (test code 68 ML/MIN/1.73 = 67554) CALC BUN/CREAT (test code = 13 RATIO [...] (test code = 2219) 39 U/L URIC [id number] 00:00:00 Test Item Value Reference Range Interpretation Comments URIC ACID (test code = 2233) 5.4 MG/DL MICROALBUMIN/CREATININE, RANDOM AND [id number] 00:00:00 Test Item Value Reference Range Interpretation Comments CREATININE, URINE, CONC. (test 88.0 MG/DL code = 207) ALBUMIN, URINE, RANDOM (test code 19.5 MG/DL = 29603) CALC ALBUMIN/CREAT, RND (test code 222 MG/G = 22370) SEDIMENTATION [id number] 00:00:00 Test Item Value Reference Range Interpretation Comments SEDIMENTATION RATE (test code = 5 MM/HOUR 1017) HEMOGLOBIN [id number] 00:00:00 Test Item Value Reference Range Interpretation Comments HEMOGLOBIN A1c (test code = 79718) 8.7 % HEMOGLOBIN [id number] 00:00:00 Test Item Value Reference Range Interpretation Comments HEMOGLOBIN A1c (test code = 40935) 8.7 % HEMOGLOBIN [id number] 00:00:00 Test Item Value Reference Range Interpretation Comments HEMOGLOBIN A1c (test code = 35412) 8.7 % LIPID [id number] 00:00:00 Test Item Value Reference Range Interpretation Comments CHOLESTEROL (test code = 2210) 241 MG/DL TRIGLYCERIDES (test code = 2232) 344 MG/DL HDL CHOLESTEROL (test code = 2220) 48 MG/DL CALC LDL CHOL (test code = 2237) 140 MG/DL RISK RATIO LDL/HDL (test code = 2.92 RATIO 2238) LIPID [id number] 00:00:00 Test Item Value Reference Range Interpretation Comments CHOLESTEROL (test code = 2210) 241 MG/DL TRIGLYCERIDES (test code = 2232) 344 MG/DL HDL CHOLESTEROL (test code = 2220) 48 MG/DL CALC LDL CHOL (test code = 2237) 140 MG/DL RISK RATIO LDL/HDL (test code = 2.92 RATIO 2238) COMPREHENSIVE METABOLIC [id number] 00:00:00 Test Item Value Reference Range Interpretation Comments GLUCOSE (test code = 2217) 255 MG/DL BUN (test code = 2208) 16 MG/DL CREATININE (test code = 2214) 1.27 MG/DL eGFR (2020 CKD-EPI) (test code 68 ML/MIN/1.73 = 45887) CALC BUN/CREAT (test code = 13 RATIO [...] code = 2219) 39 U/L COMPREHENSIVE METABOLIC [id number] 00:00:00 Test Item Value Reference Range Interpretation Comments GLUCOSE (test code = 2217) 255 MG/DL BUN (test code = 2208) 16 MG/DL CREATININE (test code = 2214) 1.27 MG/DL eGFR (2020 CKD-EPI) (test code 68 ML/MIN/1.73 = 77786) CALC BUN/CREAT (test code = 13 RATIO [...] (test code = 2219) 39 U/L URIC [id number] 00:00:00 Test Item Value Reference Range Interpretation Comments URIC ACID (test code = 2233) 5.4 MG/DL URIC [id number] 00:00:00 Test Item Value Reference Range Interpretation Comments URIC ACID (test code = 2233) 5.4 MG/DL MICROALBUMIN/CREATININE, RANDOM AND [id number] 00:00:00 Test Item Value Reference Range Interpretation Comments CREATININE, URINE, CONC. (test 88.0 MG/DL code = 2072) ALBUMIN, URINE, RANDOM (test code 19.5 MG/DL = 20929) CALC ALBUMIN/CREAT, RND (test code 222 MG/G = 83876) MICROALBUMIN/CREATININE, RANDOM AND [id number] 00:00:00 Test Item Value Reference Range Interpretation Comments CREATININE, URINE, CONC. (test 88.0 MG/DL code = 2072) ALBUMIN, URINE, RANDOM (test code 19.5 MG/DL = 43761) CALC ALBUMIN/CREAT, RND (test code 222 MG/G = 42371) SEDIMENTATION [id number] 00:00:00 Test Item Value Reference Range Interpretation Comments SEDIMENTATION RATE (test code = 5 MM/HOUR 1017) HEMOGLOBIN [id number] 00:00:00 Test Item Value Reference Range Interpretation Comments HEMOGLOBIN A1c (test code = 86339) 7.7 % HEMOGLOBIN [id number] 00:00:00 Test Item Value Reference Range Interpretation Comments HEMOGLOBIN A1c (test code = 09877) 7.7 % HEMOGLOBIN [id number] 00:00:00 Test Item Value Reference Range Interpretation Comments HEMOGLOBIN A1c (test code = 89442) 7.7 % LIPID [id number] 00:00:00 Test Item Value Reference Range Interpretation Comments CHOLESTEROL (test code = 2210) 167 MG/DL TRIGLYCERIDES (test code = 2232) 263 MG/DL HDL CHOLESTEROL (test code = 2220) 40 MG/DL CALC LDL CHOL (test code = 2237) 92 MG/DL RISK RATIO LDL/HDL (test code = 2.30 RATIO 2238) LIPID [id number] 00:00:00 Test Item Value Reference Range Interpretation Comments CHOLESTEROL (test code = 2210) 167 MG/DL TRIGLYCERIDES (test code = 2232) 263 MG/DL HDL CHOLESTEROL (test code = 2220) 40 MG/DL CALC LDL CHOL (test code = 2237) 92 MG/DL RISK RATIO LDL/HDL (test code = 2.30 RATIO 2238) CBC W/AUTO [id number] 00:00:00 Test Item Value Reference Range Interpretation [...] NUCLEATED RBCS (test code = 0.00 K/UL 00671) CBC W/AUTO [id number] 00:00:00 Test Item Value Reference Range Interpretation [...] NUCLEATED RBCS (test code = 0.00 K/UL 57377) CBC W/AUTO [id number] 00:00:00 Test Item Value Reference Range Interpretation [...] NUCLEATED RBCS (test code = 0.00 K/UL 83501) COMPREHENSIVE METABOLIC [id number] 00:00:00 Test Item Value Reference Range Interpretation Comments GLUCOSE (test code = 2217) 264 MG/DL BUN (test code = 2208) 12 MG/DL CREATININE (test code = 2214) 1.13 MG/DL eGFR AMER. (test code 86 ML/MIN/1.73 = 97141) eGFR NON- AMER. (test 74 ML/MIN/1.73 code = 64623) CALC BUN/CREAT (test code = 11 RATIO [...] code = 2219) 35 U/L COMPREHENSIVE METABOLIC [id number] 00:00:00 Test Item Value Reference Range Interpretation Comments GLUCOSE (test code = 2217) 264 MG/DL BUN (test code = 2208) 12 MG/DL CREATININE (test code = 2214) 1.13 MG/DL eGFR AMER. (test code 86 ML/MIN/1.73 = 50282) eGFR NON- AMER. (test 74 ML/MIN/1.73 code = 91929) CALC BUN/CREAT (test code = 11 RATIO [...] ALT (test code = 2219) 35 U/L [id number] 00:00:00 Test Item Value Reference Range Interpretation Comments TSH, THIRD GENERATION (test code 0.949 UIU/ML = 2821) [id number] 00:00:00 Test Item Value Reference Range Interpretation Comments TSH, THIRD GENERATION (test code 0.949 UIU/ML = 2821) [id number] 00:00:00 Test Item Value Reference Range Interpretation Comments TSH, THIRD GENERATION (test code 0.949 UIU/ML = 2821) HEMOGLOBIN [id number] 00:00:00 Test Item Value Reference Range Interpretation Comments HEMOGLOBIN A1c (test code = 61825) 7.7 % HEMOGLOBIN [id number] 00:00:00 Test Item Value Reference Range Interpretation Comments HEMOGLOBIN A1c (test code = 76379) 7.7 % LIPID [id number] 00:00:00 Test Item Value Reference Range Interpretation Comments CHOLESTEROL (test code = 2210) 167 MG/DL TRIGLYCERIDES (test code = 2232) 263 MG/DL HDL CHOLESTEROL (test code = 2220) 40 MG/DL CALC LDL CHOL (test code = 2237) 92 MG/DL RISK RATIO LDL/HDL (test code = 2.30 RATIO 2238) HEMOGLOBIN [id number] 00:00:00 Test Item Value Reference Range Interpretation Comments HEMOGLOBIN A1c (test code = 99398) 7.7 % HEMOGLOBIN [id number] 00:00:00 Test Item Value Reference Range Interpretation Comments HEMOGLOBIN A1c (test code = 39983) 7.7 % HEMOGLOBIN [id number] 00:00:00 Test Item Value Reference Range Interpretation Comments HEMOGLOBIN A1c (test code = 45692) 7.7 % CBC W/AUTO [id number] 00:00:00 Test Item Value Reference Range Interpretation [...] NUCLEATED RBCS (test code = 0.00 K/UL 26468) LIPID [id number] 00:00:00 Test Item Value Reference Range Interpretation Comments CHOLESTEROL (test code = 2210) 167 MG/DL TRIGLYCERIDES (test code = 2232) 263 MG/DL HDL CHOLESTEROL (test code = 2220) 40 MG/DL CALC LDL CHOL (test code = 2237) 92 MG/DL RISK RATIO LDL/HDL (test code = 2.30 RATIO 2238) LIPID [id number] 00:00:00 Test Item Value Reference Range Interpretation Comments CHOLESTEROL (test code = 2210) 167 MG/DL TRIGLYCERIDES (test code = 2232) 263 MG/DL HDL CHOLESTEROL (test code = 2220) 40 MG/DL CALC LDL CHOL (test code = 2237) 92 MG/DL RISK RATIO LDL/HDL (test code = 2.30 RATIO 2238) CBC W/AUTO [id number] 00:00:00 Test Item Value Reference Range Interpretation [...] NUCLEATED RBCS (test code = 0.00 K/UL 50711) CBC W/AUTO [id number] 00:00:00 Test Item Value Reference Range Interpretation [...] NUCLEATED RBCS (test code = 0.00 K/UL 57067) CBC W/AUTO [id number] 00:00:00 Test Item Value Reference Range Interpretation [...] NUCLEATED RBCS (test code = 0.00 K/UL 65735) CBC W/AUTO [id number] 00:00:00 Test Item Value Reference Range Interpretation [...] NUCLEATED RBCS (test code = 0.00 K/UL 77035) COMPREHENSIVE METABOLIC [id number] 00:00:00 Test Item Value Reference Range Interpretation Comments GLUCOSE (test code = 2217) 264 MG/DL BUN (test code = 2208) 12 MG/DL CREATININE (test code = 2214) 1.13 MG/DL eGFR AMER. (test code 86 ML/MIN/1.73 = 33682) eGFR NON- AMER. (test 74 ML/MIN/1.73 code = 87480) CALC BUN/CREAT (test code = 11 RATIO [...] code = 2219) 35 U/L COMPREHENSIVE METABOLIC [id number] 00:00:00 Test Item Value Reference Range Interpretation Comments GLUCOSE (test code = 2217) 264 MG/DL BUN (test code = 2208) 12 MG/DL CREATININE (test code = 2214) 1.13 MG/DL eGFR AMER. (test code 86 ML/MIN/1.73 = 94485) eGFR NON- AMER. (test 74 ML/MIN/1.73 code = 01636) CALC BUN/CREAT (test code = 11 RATIO 2235) SODIUM (test code = 2231) 138 MEQ/L POTASSIUM (test code = 2228) 4.6 MEQ/L CHLORIDE (test code = 2215) 97 MEQ/L CARBON DIOXIDE (test code = 27 MEQ/L 2205) CALCIUM (test code = 2209) 9.3 MG/DL PROTEIN, TOTAL (test code = 8.0 G/DL 2228) ALBUMIN (test code = 220) 4.2 G/DL CALC GLOBULIN (test code = 3.8 G/DL 2239) CALC A/G RATIO (test code = 1.1 RATIO 2233) BILIRUBIN, TOTAL (test code = 0.6 MG/DL 2206) ALKALINE PHOSPHATASE (test 133 U/L code = 2204) AST (test code = 2218) 21 U/L ALT (test code = 2219) 35 U/L [id number] 00:00:00 Test Item Value Reference Range Interpretation Comments TSH, THIRD GENERATION (test code 0.949 UIU/ML = 2821) [id number] 00:00:00 Test Item Value Reference Range Interpretation Comments TSH, THIRD GENERATION (test code 0.949 UIU/ML = 2821) [id number] 00:00:00 Test Item Value Reference Range Interpretation Comments TSH, THIRD GENERATION (test code 0.949 UIU/ML = 2821) COMPREHENSIVE METABOLIC [id number] 00:00:00 Test Item Value Reference Range Interpretation Comments GLUCOSE (test code = 2217) 264 MG/DL BUN (test code = 2208) 12 MG/DL CREATININE (test code = 2214) 1.13 MG/DL eGFR AMER. (test code 86 ML/MIN/1.73 = 10223) eGFR NON- AMER. (test 74 ML/MIN/1.73 code = 78547) CALC BUN/CREAT (test code = 11 RATIO [...] ALT (test code = 2219) 35 U/L [id number] 00:00:00 Test Item Value Reference Range Interpretation Comments TSH, THIRD GENERATION (test code 0.949 UIU/ML = 2821) [id number] 00:00:00 Test Item Value Reference Range Interpretation Comments TSH, THIRD GENERATION (test code 0.949 UIU/ML = 2821) HEMOGLOBIN [id number] 00:00:00 Test Item Value Reference Range Interpretation Comments HEMOGLOBIN A1c (test code = 67762) 7.7 % HEMOGLOBIN [id number] 00:00:00 Test Item Value Reference Range Interpretation Comments HEMOGLOBIN A1c (test code = 22769) 7.7 % HEMOGLOBIN [id number] 00:00:00 Test Item Value Reference Range Interpretation Comments HEMOGLOBIN A1c (test code = 57775) 7.7 % LIPID [id number] 00:00:00 Test Item Value Reference Range Interpretation Comments CHOLESTEROL (test code = 2210) 167 MG/DL TRIGLYCERIDES (test code = 2232) 263 MG/DL HDL CHOLESTEROL (test code = 2220) 40 MG/DL CALC LDL CHOL (test code = 2237) 92 MG/DL RISK RATIO LDL/HDL (test code = 2.30 RATIO 2238) LIPID [id number] 00:00:00 Test Item Value Reference Range Interpretation Comments CHOLESTEROL (test code = 2210) 167 MG/DL TRIGLYCERIDES (test code = 2232) 263 MG/DL HDL CHOLESTEROL (test code = 2220) 40 MG/DL CALC LDL CHOL (test code = 2237) 92 MG/DL RISK RATIO LDL/HDL (test code = 2.30 RATIO 2238) CBC W/AUTO [id number] 00:00:00 Test Item Value Reference Range Interpretation [...] NUCLEATED RBCS (test code = 0.00 K/UL 93431) CBC W/AUTO [id number] 00:00:00 Test Item Value Reference Range Interpretation [...] NUCLEATED RBCS (test code = 0.00 K/UL 43559) CBC W/AUTO [id number] 00:00:00 Test Item Value Reference Range Interpretation [...] NUCLEATED RBCS (test code = 0.00 K/UL 84181) COMPREHENSIVE METABOLIC [id number] 00:00:00 Test Item Value Reference Range Interpretation Comments GLUCOSE (test code = 2217) 264 MG/DL BUN (test code = 2208) 12 MG/DL CREATININE (test code = 2214) 1.13 MG/DL eGFR AMER. (test code 86 ML/MIN/1.73 = 21421) eGFR NON- AMER. (test 74 ML/MIN/1.73 code = 66962) CALC BUN/CREAT (test code = 11 RATIO [...] code = 2219) 35 U/L COMPREHENSIVE METABOLIC [id number] 00:00:00 Test Item Value Reference Range Interpretation Comments GLUCOSE (test code = 2217) 264 MG/DL BUN (test code = 2208) 12 MG/DL CREATININE (test code = 2214) 1.13 MG/DL eGFR AMER. (test code 86 ML/MIN/1.73 = 97119) eGFR NON- AMER. (test 74 ML/MIN/1.73 code = 69809) CALC BUN/CREAT (test code = 11 RATIO [...] ALT (test code = 2219) 35 U/L [id number] 00:00:00 Test Item Value Reference Range Interpretation Comments TSH, THIRD GENERATION (test code 0.949 UIU/ML = 2821) [id number] 00:00:00 Test Item Value Reference Range Interpretation Comments TSH, THIRD GENERATION (test code 0.949 UIU/ML = 2821) [id number] 00:00:00 Test Item Value Reference Range Interpretation Comments TSH, THIRD GENERATION (test code 0.949 UIU/ML = 2821) HEMOGLOBIN [id number] 00:00:00 Test Item Value Reference Range Interpretation Comments HEMOGLOBIN A1c (test code = 68063) 7.7 % HEMOGLOBIN [id number] 00:00:00 Test Item Value Reference Range Interpretation Comments HEMOGLOBIN A1c (test code = 17124) 7.7 % HEMOGLOBIN [id number] 00:00:00 Test Item Value Reference Range Interpretation Comments HEMOGLOBIN A1c (test code = 10307) 7.7 % LIPID [id number] 00:00:00 Test Item Value Reference Range Interpretation Comments CHOLESTEROL (test code = 2210) 167 MG/DL TRIGLYCERIDES (test code = 2232) 263 MG/DL HDL CHOLESTEROL (test code = 2220) 40 MG/DL CALC LDL CHOL (test code = 2237) 92 MG/DL RISK RATIO LDL/HDL (test code = 2.30 RATIO 2238) LIPID [id number] 00:00:00 Test Item Value Reference Range Interpretation Comments CHOLESTEROL (test code = 2210) 167 MG/DL TRIGLYCERIDES (test code = 2232) 263 MG/DL HDL CHOLESTEROL (test code = 2220) 40 MG/DL CALC LDL CHOL (test code = 2237) 92 MG/DL RISK RATIO LDL/HDL (test code = 2.30 RATIO 2238) CBC W/AUTO [id number] 00:00:00 Test Item Value Reference Range Interpretation [...] NUCLEATED RBCS (test code = 0.00 K/UL 56799) CBC W/AUTO [id number] 00:00:00 Test Item Value Reference Range Interpretation [...] NUCLEATED RBCS (test code = 0.00 K/UL 18954) CBC W/AUTO [id number] 00:00:00 Test Item Value Reference Range Interpretation [...] NUCLEATED RBCS (test code = 0.00 K/UL 80141) COMPREHENSIVE METABOLIC [id number] 00:00:00 Test Item Value Reference Range Interpretation Comments GLUCOSE (test code = 2217) 264 MG/DL BUN (test code = 2208) 12 MG/DL CREATININE (test code = 2214) 1.13 MG/DL eGFR AMER. (test code 86 ML/MIN/1.73 = 67343) eGFR NON- AMER. (test 74 ML/MIN/1.73 code = 38591) CALC BUN/CREAT (test code = 11 RATIO [...] code = 2219) 35 U/L COMPREHENSIVE METABOLIC [id number] 00:00:00 Test Item Value Reference Range Interpretation Comments GLUCOSE (test code = 2217) 264 MG/DL BUN (test code = 2208) 12 MG/DL CREATININE (test code = 2214) 1.13 MG/DL eGFR AMER. (test code 86 ML/MIN/1.73 = 37132) eGFR NON- AMER. (test 74 ML/MIN/1.73 code = 15882) CALC BUN/CREAT (test code = 11 RATIO [...] ALT (test code = 2219) 35 U/L [id number] 00:00:00 Test Item Value Reference Range Interpretation Comments TSH, THIRD GENERATION (test code 0.949 UIU/ML = 2821) [id number] 00:00:00 Test Item Value Reference Range Interpretation Comments TSH, THIRD GENERATION (test code 0.949 UIU/ML = 2821) [id number] 00:00:00 Test Item Value Reference Range Interpretation Comments TSH, THIRD GENERATION (test code 0.949 UIU/ML = 2821) HEMOGLOBIN [id number] 00:00:00 Test Item Value Reference Range Interpretation Comments HEMOGLOBIN A1c (test code = 78461) 7.7 % HEMOGLOBIN [id number] 00:00:00 Test Item Value Reference Range Interpretation Comments HEMOGLOBIN A1c (test code = 71383) 7.7 % HEMOGLOBIN [id number] 00:00:00 Test Item Value Reference Range Interpretation Comments HEMOGLOBIN A1c (test code = 70511) 7.7 % LIPID [id number] 00:00:00 Test Item Value Reference Range Interpretation Comments CHOLESTEROL (test code = 2210) 167 MG/DL TRIGLYCERIDES (test code = 2232) 263 MG/DL HDL CHOLESTEROL (test code = 2220) 40 MG/DL CALC LDL CHOL (test code = 2237) 92 MG/DL RISK RATIO LDL/HDL (test code = 2.30 RATIO 2238) LIPID [id number] 00:00:00 Test Item Value Reference Range Interpretation Comments CHOLESTEROL (test code = 2210) 167 MG/DL TRIGLYCERIDES (test code = 2232) 263 MG/DL HDL CHOLESTEROL (test code = 2220) 40 MG/DL CALC LDL CHOL (test code = 2237) 92 MG/DL RISK RATIO LDL/HDL (test code = 2.30 RATIO 2238) CBC W/AUTO [id number] 00:00:00 Test Item Value Reference Range Interpretation [...] NUCLEATED RBCS (test code = 0.00 K/UL 49280) CBC W/AUTO [id number] 00:00:00 Test Item Value Reference Range Interpretation [...] NUCLEATED RBCS (test code = 0.00 K/UL 55304) CBC W/AUTO [id number] 00:00:00 Test Item Value Reference Range Interpretation [...] NUCLEATED RBCS (test code = 0.00 K/UL 65849) COMPREHENSIVE METABOLIC [id number] 00:00:00 Test Item Value Reference Range Interpretation Comments GLUCOSE (test code = 2217) 264 MG/DL BUN (test code = 2208) 12 MG/DL CREATININE (test code = 2214) 1.13 MG/DL eGFR AMER. (test code 86 ML/MIN/1.73 = 07727) eGFR NON- AMER. (test 74 ML/MIN/1.73 code = 30545) CALC BUN/CREAT (test code = 11 RATIO [...] code = 2219) 35 U/L COMPREHENSIVE METABOLIC [id number] 00:00:00 Test Item Value Reference Range Interpretation Comments GLUCOSE (test code = 2217) 264 MG/DL BUN (test code = 2208) 12 MG/DL CREATININE (test code = 2214) 1.13 MG/DL eGFR AMER. (test code 86 ML/MIN/1.73 = 57481) eGFR NON- AMER. (test 74 ML/MIN/1.73 code = 50036) CALC BUN/CREAT (test code = 11 RATIO [...] ALT (test code = 2219) 35 U/L [id number] 00:00:00 Test Item Value Reference Range Interpretation Comments TSH, THIRD GENERATION (test code 0.949 UIU/ML = 2821) [id number] 00:00:00 Test Item Value Reference Range Interpretation Comments TSH, THIRD GENERATION (test code 0.949 UIU/ML = 2821) [id number] 00:00:00 Test Item Value Reference Range Interpretation Comments TSH, THIRD GENERATION (test code 0.949 UIU/ML = 2821) HEMOGLOBIN [id number] 00:00:00 Test Item Value Reference Range Interpretation Comments HEMOGLOBIN A1c (test code = 53307) 7.7 % HEMOGLOBIN [id number] 00:00:00 Test Item Value Reference Range Interpretation Comments HEMOGLOBIN A1c (test code = 29499) 7.7 % LIPID [id number] 00:00:00 Test Item Value Reference Range Interpretation Comments CHOLESTEROL (test code = 2210) 167 MG/DL TRIGLYCERIDES (test code = 2232) 263 MG/DL HDL CHOLESTEROL (test code = 2220) 40 MG/DL CALC LDL CHOL (test code = 2237) 92 MG/DL RISK RATIO LDL/HDL (test code = 2.30 RATIO 2238) CBC W/AUTO [id number] 00:00:00 Test Item Value Reference Range Interpretation [...] NUCLEATED RBCS (test code = 0.00 K/UL 80364) CBC W/AUTO [id number] 00:00:00 Test Item Value Reference Range Interpretation [...] NUCLEATED RBCS (test code = 0.00 K/UL 45533) COMPREHENSIVE METABOLIC [id number] 00:00:00 Test Item Value Reference Range Interpretation Comments GLUCOSE (test code = 2217) 264 MG/DL BUN (test code = 2208) 12 MG/DL CREATININE (test code = 2214) 1.13 MG/DL eGFR AMER. (test code 86 ML/MIN/1.73 = 41822) eGFR NON- AMER. (test 74 ML/MIN/1.73 code = 12900) CALC BUN/CREAT (test code = 11 RATIO [...] ALT (test code = 2219) 35 U/L [id number] 00:00:00 Test Item Value Reference Range Interpretation Comments TSH, THIRD GENERATION (test code 0.949 UIU/ML = 2821) [id number] 00:00:00 Test Item Value Reference Range Interpretation Comments TSH, THIRD GENERATION (test code 0.949 UIU/ML = 2821) HEMOGLOBIN [id number] 00:00:00 Test Item Value Reference Range Interpretation Comments HEMOGLOBIN A1c (test code = 34554) 7.7 % HEMOGLOBIN [id number] 00:00:00 Test Item Value Reference Range Interpretation Comments HEMOGLOBIN A1c (test code = 64023) 7.7 % LIPID [id number] 00:00:00 Test Item Value Reference Range Interpretation Comments CHOLESTEROL (test code = 2210) 167 MG/DL TRIGLYCERIDES (test code = 2232) 263 MG/DL HDL CHOLESTEROL (test code = 2220) 40 MG/DL CALC LDL CHOL (test code = 2237) 92 MG/DL RISK RATIO LDL/HDL (test code = 2.30 RATIO 2238) CBC W/AUTO [id number] 00:00:00 Test Item Value Reference Range Interpretation [...] NUCLEATED RBCS (test code = 0.00 K/UL 54277) CBC W/AUTO [id number] 00:00:00 Test Item Value Reference Range Interpretation [...] NUCLEATED RBCS (test code = 0.00 K/UL 91114) COMPREHENSIVE METABOLIC [id number] 00:00:00 Test Item Value Reference Range Interpretation Comments GLUCOSE (test code = 2217) 264 MG/DL BUN (test code = 2208) 12 MG/DL CREATININE (test code = 2214) 1.13 MG/DL eGFR AMER. (test code 86 ML/MIN/1.73 = 36047) eGFR NON- AMER. (test 74 ML/MIN/1.73 code = 29343) CALC BUN/CREAT (test code = 11 RATIO [...] ALT (test code = 2219) 35 U/L [id number] 00:00:00 Test Item Value Reference Range Interpretation Comments TSH, THIRD GENERATION (test code 0.949 UIU/ML = 2821) [id number] 00:00:00 Test Item Value Reference Range Interpretation Comments TSH, THIRD GENERATION (test code 0.949 UIU/ML = 2821) HEMOGLOBIN [id number] 00:00:00 Test Item Value Reference Range Interpretation Comments HEMOGLOBIN A1c (test code = 83066) 7.7 % HEMOGLOBIN [id number] 00:00:00 Test Item Value Reference Range Interpretation Comments HEMOGLOBIN A1c (test code = 51867) 7.7 % HEMOGLOBIN [id number] 00:00:00 Test Item Value Reference Range Interpretation Comments HEMOGLOBIN A1c (test code = 95934) 7.7 % LIPID [id number] 00:00:00 Test Item Value Reference Range Interpretation Comments CHOLESTEROL (test code = 2210) 167 MG/DL TRIGLYCERIDES (test code = 2232) 263 MG/DL HDL CHOLESTEROL (test code = 2220) 40 MG/DL CALC LDL CHOL (test code = 2237) 92 MG/DL RISK RATIO LDL/HDL (test code = 2.30 RATIO 2238) LIPID [id number] 00:00:00 Test Item Value Reference Range Interpretation Comments CHOLESTEROL (test code = 2210) 167 MG/DL TRIGLYCERIDES (test code = 2232) 263 MG/DL HDL CHOLESTEROL (test code = 2220) 40 MG/DL CALC LDL CHOL (test code = 2237) 92 MG/DL RISK RATIO LDL/HDL (test code = 2.30 RATIO 2238) CBC W/AUTO [id number] 00:00:00 Test Item Value Reference Range Interpretation [...] NUCLEATED RBCS (test code = 0.00 K/UL 82734) CBC W/AUTO [id number] 00:00:00 Test Item Value Reference Range Interpretation [...] NUCLEATED RBCS (test code = 0.00 K/UL 36948) CBC W/AUTO [id number] 00:00:00 Test Item Value Reference Range Interpretation [...] NUCLEATED RBCS (test code = 0.00 K/UL 27551) COMPREHENSIVE METABOLIC [id number] 00:00:00 Test Item Value Reference Range Interpretation Comments GLUCOSE (test code = 2217) 264 MG/DL BUN (test code = 2208) 12 MG/DL CREATININE (test code = 2214) 1.13 MG/DL eGFR AMER. (test code 86 ML/MIN/1.73 = 69805) eGFR NON- AMER. (test 74 ML/MIN/1.73 code = 65815) CALC BUN/CREAT (test code = 11 RATIO [...] code = 2219) 35 U/L COMPREHENSIVE METABOLIC [id number] 00:00:00 Test Item Value Reference Range Interpretation Comments GLUCOSE (test code = 2217) 264 MG/DL BUN (test code = 2208) 12 MG/DL CREATININE (test code = 2214) 1.13 MG/DL eGFR AMER. (test code 86 ML/MIN/1.73 = 88972) eGFR NON- AMER. (test 74 ML/MIN/1.73 code = 28042) CALC BUN/CREAT (test code = 11 RATIO [...] BILIRUBIN, TOTAL (test code = 0.6 MG/DL 7) ALKALINE PHOSPHATASE (test 133 U/L code = 2204) AST (test code = 2218) 21 U/L ALT (test code = 2219) 35 U/L [id number] 00:00:00 Test Item Value Reference Range Interpretation Comments TSH, THIRD GENERATION (test code 0.949 UIU/ML = 2821) [id number] 00:00:00 Test Item Value Reference Range Interpretation Comments TSH, THIRD GENERATION (test code 0.949 UIU/ML = 2821) [id number] 00:00:00 Test Item Value Reference Range Interpretation Comments TSH, THIRD GENERATION (test code 0.949 UIU/ML = 2821) LIPID [id number] 00:00:00 Test Item Value Reference Range Interpretation Comments CHOLESTEROL (test code = 2210) 224 MG/DL TRIGLYCERIDES (test code = 2232) 361 MG/DL HDL CHOLESTEROL (test code = 2220) 45 MG/DL CALC LDL CHOL (test code = 2237) 127 MG/DL RISK RATIO LDL/HDL (test code = 2.82 RATIO 2238) LIPID [id number] 00:00:00 Test Item Value Reference Range Interpretation Comments CHOLESTEROL (test code = 2210) 224 MG/DL TRIGLYCERIDES (test code = 2232) 361 MG/DL HDL CHOLESTEROL (test code = 2220) 45 MG/DL CALC LDL CHOL (test code = 2237) 127 MG/DL RISK RATIO LDL/HDL (test code = 2.82 RATIO 2238) HEMOGLOBIN [id number] 00:00:00 Test Item Value Reference Range Interpretation Comments HEMOGLOBIN A1c (test code = 53898) 5.9 % HEMOGLOBIN [id number] 00:00:00 Test Item Value Reference Range Interpretation Comments HEMOGLOBIN A1c (test code = 02881) 5.9 % HEMOGLOBIN [id number] 00:00:00 Test Item Value Reference Range Interpretation Comments HEMOGLOBIN A1c (test code = 95029) 5.9 % COMPREHENSIVE METABOLIC [id number] 00:00:00 Test Item Value Reference Range Interpretation Comments GLUCOSE (test code = 2217) 150 MG/DL BUN (test code = 2208) 14 MG/DL CREATININE (test code = 2214) 1.22 MG/DL eGFR AMER. (test code 79 ML/MIN/1.73 = 00805) eGFR NON- AMER. (test 68 ML/MIN/1.73 code = 68487) CALC BUN/CREAT (test code = 11 RATIO [...] code = 2219) 49 U/L COMPREHENSIVE METABOLIC [id number] 00:00:00 Test Item Value Reference Range Interpretation Comments GLUCOSE (test code = 2217) 150 MG/DL BUN (test code = 2208) 14 MG/DL CREATININE (test code = 2214) 1.22 MG/DL eGFR AMER. (test code 79 ML/MIN/1.73 = 80832) eGFR NON- AMER. (test 68 ML/MIN/1.73 code = 78603) CALC BUN/CREAT (test code = 11 RATIO [...] (test code = 2219) 49 U/L LIPID [id number] 00:00:00 Test Item Value Reference Range Interpretation Comments CHOLESTEROL (test code = 2210) 224 MG/DL TRIGLYCERIDES (test code = 2232) 361 MG/DL HDL CHOLESTEROL (test code = 2220) 45 MG/DL CALC LDL CHOL (test code = 2237) 127 MG/DL RISK RATIO LDL/HDL (test code = 2.82 RATIO 2238) HEMOGLOBIN [id number] 00:00:00 Test Item Value Reference Range Interpretation Comments HEMOGLOBIN A1c (test code = 01535) 5.9 % LIPID [id number] 00:00:00 Test Item Value Reference Range Interpretation Comments CHOLESTEROL (test code = 2210) 224 MG/DL TRIGLYCERIDES (test code = 2232) 361 MG/DL HDL CHOLESTEROL (test code = 2220) 45 MG/DL CALC LDL CHOL (test code = 2237) 127 MG/DL RISK RATIO LDL/HDL (test code = 2.82 RATIO 2238) HEMOGLOBIN [id number] 00:00:00 Test Item Value Reference Range Interpretation Comments HEMOGLOBIN A1c (test code = 93131) 5.9 % LIPID [id number] 00:00:00 Test Item Value Reference Range Interpretation Comments CHOLESTEROL (test code = 2210) 224 MG/DL TRIGLYCERIDES (test code = 2232) 361 MG/DL HDL CHOLESTEROL (test code = 2220) 45 MG/DL CALC LDL CHOL (test code = 2237) 127 MG/DL RISK RATIO LDL/HDL (test code = 2.82 RATIO 2238) HEMOGLOBIN [id number] 00:00:00 Test Item Value Reference Range Interpretation Comments HEMOGLOBIN A1c (test code = 61934) 5.9 % HEMOGLOBIN [id number] 00:00:00 Test Item Value Reference Range Interpretation Comments HEMOGLOBIN A1c (test code = 95330) 5.9 % HEMOGLOBIN [id number] 00:00:00 Test Item Value Reference Range Interpretation Comments HEMOGLOBIN A1c (test code = 83851) 5.9 % COMPREHENSIVE METABOLIC [id number] 00:00:00 Test Item Value Reference Range Interpretation Comments GLUCOSE (test code = 2217) 150 MG/DL BUN (test code = 2208) 14 MG/DL CREATININE (test code = 2214) 1.22 MG/DL eGFR AMER. (test code 79 ML/MIN/1.73 = 79388) eGFR NON- AMER. (test 68 ML/MIN/1.73 code = 25274) CALC BUN/CREAT (test code = 11 RATIO [...] code = 2219) 49 U/L COMPREHENSIVE METABOLIC [id number] 00:00:00 Test Item Value Reference Range Interpretation Comments GLUCOSE (test code = 2217) 150 MG/DL BUN (test code = 2208) 14 MG/DL CREATININE (test code = 2214) 1.22 MG/DL eGFR AMER. (test code 79 ML/MIN/1.73 = 80952) eGFR NON- AMER. (test 68 ML/MIN/1.73 code = 44585) CALC BUN/CREAT (test code = 11 RATIO [...] BILIRUBIN, TOTAL (test code = 0.5 MG/DL 7) ALKALINE PHOSPHATASE (test 120 U/L code = 2204) AST (test code = 2218) 22 U/L ALT (test code = 2219) 49 U/L COMPREHENSIVE METABOLIC [id number] 00:00:00 Test Item Value Reference Range Interpretation Comments GLUCOSE (test code = 2217) 150 MG/DL BUN (test code = 2208) 14 MG/DL CREATININE (test code = 2214) 1.22 MG/DL eGFR AMER. (test code 79 ML/MIN/1.73 = 04475) eGFR NON- AMER. (test 68 ML/MIN/1.73 code = 83880) CALC BUN/CREAT (test code = 11 RATIO [...] (test code = 2219) 49 U/L LIPID [id number] 00:00:00 Test Item Value Reference Range Interpretation Comments CHOLESTEROL (test code = 2210) 224 MG/DL TRIGLYCERIDES (test code = 2232) 361 MG/DL HDL CHOLESTEROL (test code = 2220) 45 MG/DL CALC LDL CHOL (test code = 2237) 127 MG/DL RISK RATIO LDL/HDL (test code = 2.82 RATIO 2238) LIPID [id number] 00:00:00 Test Item Value Reference Range Interpretation Comments CHOLESTEROL (test code = 2210) 224 MG/DL TRIGLYCERIDES (test code = 2232) 361 MG/DL HDL CHOLESTEROL (test code = 2220) 45 MG/DL CALC LDL CHOL (test code = 2237) 127 MG/DL RISK RATIO LDL/HDL (test code = 2.82 RATIO 2238) HEMOGLOBIN [id number] 00:00:00 Test Item Value Reference Range Interpretation Comments HEMOGLOBIN A1c (test code = 13537) 5.9 % HEMOGLOBIN [id number] 00:00:00 Test Item Value Reference Range Interpretation Comments HEMOGLOBIN A1c (test code = 38401) 5.9 % HEMOGLOBIN [id number] 00:00:00 Test Item Value Reference Range Interpretation Comments HEMOGLOBIN A1c (test code = 52611) 5.9 % COMPREHENSIVE METABOLIC [id number] 00:00:00 Test Item Value Reference Range Interpretation Comments GLUCOSE (test code = 2217) 150 MG/DL BUN (test code = 2208) 14 MG/DL CREATININE (test code = 2214) 1.22 MG/DL eGFR AMER. (test code 79 ML/MIN/1.73 = 41559) eGFR NON- AMER. (test 68 ML/MIN/1.73 code = 24525) CALC BUN/CREAT (test code = 11 RATIO [...] code = 2219) 49 U/L COMPREHENSIVE METABOLIC [id number] 00:00:00 Test Item Value Reference Range Interpretation Comments GLUCOSE (test code = 2217) 150 MG/DL BUN (test code = 2208) 14 MG/DL CREATININE (test code = 2214) 1.22 MG/DL eGFR AMER. (test code 79 ML/MIN/1.73 = 22415) eGFR NON- AMER. (test 68 ML/MIN/1.73 code = 61397) CALC BUN/CREAT (test code = 11 RATIO [...] (test code = 2219) 49 U/L LIPID [id number] 00:00:00 Test Item Value Reference Range Interpretation Comments CHOLESTEROL (test code = 2210) 224 MG/DL TRIGLYCERIDES (test code = 2232) 361 MG/DL HDL CHOLESTEROL (test code = 2220) 45 MG/DL CALC LDL CHOL (test code = 2237) 127 MG/DL RISK RATIO LDL/HDL (test code = 2.82 RATIO 2238) LIPID [id number] 00:00:00 Test Item Value Reference Range Interpretation Comments CHOLESTEROL (test code = 2210) 224 MG/DL TRIGLYCERIDES (test code = 2232) 361 MG/DL HDL CHOLESTEROL (test code = 2220) 45 MG/DL CALC LDL CHOL (test code = 2237) 127 MG/DL RISK RATIO LDL/HDL (test code = 2.82 RATIO 2238) HEMOGLOBIN [id number] 00:00:00 Test Item Value Reference Range Interpretation Comments HEMOGLOBIN A1c (test code = 19829) 5.9 % HEMOGLOBIN [id number] 00:00:00 Test Item Value Reference Range Interpretation Comments HEMOGLOBIN A1c (test code = 26112) 5.9 % HEMOGLOBIN [id number] 00:00:00 Test Item Value Reference Range Interpretation Comments HEMOGLOBIN A1c (test code = 34461) 5.9 % COMPREHENSIVE METABOLIC [id number] 00:00:00 Test Item Value Reference Range Interpretation Comments GLUCOSE (test code = 2217) 150 MG/DL BUN (test code = 2208) 14 MG/DL CREATININE (test code = 2214) 1.22 MG/DL eGFR AMER. (test code 79 ML/MIN/1.73 = 30945) eGFR NON- AMER. (test 68 ML/MIN/1.73 code = 18130) CALC BUN/CREAT (test code = 11 RATIO [...] code = 2219) 49 U/L COMPREHENSIVE METABOLIC [id number] 00:00:00 Test Item Value Reference Range Interpretation Comments GLUCOSE (test code = 2217) 150 MG/DL BUN (test code = 2208) 14 MG/DL CREATININE (test code = 2214) 1.22 MG/DL eGFR AMER. (test code 79 ML/MIN/1.73 = 48390) eGFR NON- AMER. (test 68 ML/MIN/1.73 code = 04129) CALC BUN/CREAT (test code = 11 RATIO [...] BILIRUBIN, TOTAL (test code = 0.5 MG/DL 7) ALKALINE PHOSPHATASE (test 120 U/L code = 2204) AST (test code = 2218) 22 U/L ALT (test code = 2219) 49 U/L LIPID [id number] 00:00:00 Test Item Value Reference Range Interpretation Comments CHOLESTEROL (test code = 2210) 224 MG/DL TRIGLYCERIDES (test code = 2232) 361 MG/DL HDL CHOLESTEROL (test code = 2220) 45 MG/DL CALC LDL CHOL (test code = 2237) 127 MG/DL RISK RATIO LDL/HDL (test code = 2.82 RATIO 2238) LIPID [id number] 00:00:00 Test Item Value Reference Range Interpretation Comments CHOLESTEROL (test code = 2210) 224 MG/DL TRIGLYCERIDES (test code = 2232) 361 MG/DL HDL CHOLESTEROL (test code = 2220) 45 MG/DL CALC LDL CHOL (test code = 2237) 127 MG/DL RISK RATIO LDL/HDL (test code = 2.82 RATIO 2238) HEMOGLOBIN [id number] 00:00:00 Test Item Value Reference Range Interpretation Comments HEMOGLOBIN A1c (test code = 79036) 5.9 % HEMOGLOBIN [id number] 00:00:00 Test Item Value Reference Range Interpretation Comments HEMOGLOBIN A1c (test code = 18792) 5.9 % HEMOGLOBIN [id number] 00:00:00 Test Item Value Reference Range Interpretation Comments HEMOGLOBIN A1c (test code = 18301) 5.9 % COMPREHENSIVE METABOLIC [id number] 00:00:00 Test Item Value Reference Range Interpretation Comments GLUCOSE (test code = 2217) 150 MG/DL BUN (test code = 2208) 14 MG/DL CREATININE (test code = 2214) 1.22 MG/DL eGFR AMER. (test code 79 ML/MIN/1.73 = 39066) eGFR NON- AMER. (test 68 ML/MIN/1.73 code = 67385) CALC BUN/CREAT (test code = 11 RATIO [...] code = 2219) 49 U/L COMPREHENSIVE METABOLIC [id number] 00:00:00 Test Item Value Reference Range Interpretation Comments GLUCOSE (test code = 2217) 150 MG/DL BUN (test code = 2208) 14 MG/DL CREATININE (test code = 2214) 1.22 MG/DL eGFR AMER. (test code 79 ML/MIN/1.73 = 00386) eGFR NON- AMER. (test 68 ML/MIN/1.73 code = 60793) CALC BUN/CREAT (test code = 11 RATIO [...] (test code = 2219) 49 U/L LIPID [id number] 00:00:00 Test Item Value Reference Range Interpretation Comments CHOLESTEROL (test code = 2210) 224 MG/DL TRIGLYCERIDES (test code = 2232) 361 MG/DL HDL CHOLESTEROL (test code = 2220) 45 MG/DL CALC LDL CHOL (test code = 2237) 127 MG/DL RISK RATIO LDL/HDL (test code = 2.82 RATIO 2238) HEMOGLOBIN [id number] 00:00:00 Test Item Value Reference Range Interpretation Comments HEMOGLOBIN A1c (test code = 06765) 5.9 % HEMOGLOBIN [id number] 00:00:00 Test Item Value Reference Range Interpretation Comments HEMOGLOBIN A1c (test code = 41504) 5.9 % COMPREHENSIVE METABOLIC [id number] 00:00:00 Test Item Value Reference Range Interpretation Comments GLUCOSE (test code = 2217) 150 MG/DL BUN (test code = 2208) 14 MG/DL CREATININE (test code = 2214) 1.22 MG/DL eGFR AMER. (test code 79 ML/MIN/1.73 = 50244) eGFR NON- AMER. (test 68 ML/MIN/1.73 code = 06872) CALC BUN/CREAT (test code = 11 RATIO [...] (test code = 2219) 49 U/L LIPID [id number] 00:00:00 Test Item Value Reference Range Interpretation Comments CHOLESTEROL (test code = 2210) 224 MG/DL TRIGLYCERIDES (test code = 2232) 361 MG/DL HDL CHOLESTEROL (test code = 2220) 45 MG/DL CALC LDL CHOL (test code = 2237) 127 MG/DL RISK RATIO LDL/HDL (test code = 2.82 RATIO 2238) HEMOGLOBIN [id number] 00:00:00 Test Item Value Reference Range Interpretation Comments HEMOGLOBIN A1c (test code = 63545) 5.9 % HEMOGLOBIN [id number] 00:00:00 Test Item Value Reference Range Interpretation Comments HEMOGLOBIN A1c (test code = 43064) 5.9 % COMPREHENSIVE METABOLIC [id number] 00:00:00 Test Item Value Reference Range Interpretation Comments GLUCOSE (test code = 2217) 150 MG/DL BUN (test code = 2208) 14 MG/DL CREATININE (test code = 2214) 1.22 MG/DL eGFR AMER. (test code 79 ML/MIN/1.73 = 98244) eGFR NON- AMER. (test 68 ML/MIN/1.73 code = 17705) CALC BUN/CREAT (test code = 11 RATIO [...] (test code = 2219) 49 U/L LIPID [id number] 00:00:00 Test Item Value Reference Range Interpretation Comments CHOLESTEROL (test code = 2210) 224 MG/DL TRIGLYCERIDES (test code = 2232) 361 MG/DL HDL CHOLESTEROL (test code = 2220) 45 MG/DL CALC LDL CHOL (test code = 2237) 127 MG/DL RISK RATIO LDL/HDL (test code = 2.82 RATIO 2238) LIPID [id number] 00:00:00 Test Item Value Reference Range Interpretation Comments CHOLESTEROL (test code = 2210) 224 MG/DL TRIGLYCERIDES (test code = 2232) 361 MG/DL HDL CHOLESTEROL (test code = 2220) 45 MG/DL CALC LDL CHOL (test code = 2237) 127 MG/DL RISK RATIO LDL/HDL (test code = 2.82 RATIO 2238) HEMOGLOBIN [id number] 00:00:00 Test Item Value Reference Range Interpretation Comments HEMOGLOBIN A1c (test code = 65291) 5.9 % HEMOGLOBIN [id number] 00:00:00 Test Item Value Reference Range Interpretation Comments HEMOGLOBIN A1c (test code = 59517) 5.9 % HEMOGLOBIN [id number] 00:00:00 Test Item Value Reference Range Interpretation Comments HEMOGLOBIN A1c (test code = 54448) 5.9 % COMPREHENSIVE METABOLIC [id number] 00:00:00 Test Item Value Reference Range Interpretation Comments GLUCOSE (test code = 2217) 150 MG/DL BUN (test code = 2208) 14 MG/DL CREATININE (test code = 2214) 1.22 MG/DL eGFR AMER. (test code 79 ML/MIN/1.73 = 40983) eGFR NON- AMER. (test 68 ML/MIN/1.73 code = 23714) CALC BUN/CREAT (test code = 11 RATIO [...] code = 2219) 49 U/L COMPREHENSIVE METABOLIC [id number] 00:00:00 Test Item Value Reference Range Interpretation Comments GLUCOSE (test code = 2217) 150 MG/DL BUN (test code = 2208) 14 MG/DL CREATININE (test code = 2214) 1.22 MG/DL eGFR AMER. (test code 79 ML/MIN/1.73 = 51774) eGFR NON- AMER. (test 68 ML/MIN/1.73 code = 36624) CALC BUN/CREAT (test code = 11 RATIO [...] BILIRUBIN, TOTAL (test code = 0.5 MG/DL 7) ALKALINE PHOSPHATASE (test 120 U/L code = 2204) AST (test code = 2218) 22 U/L ALT (test code = 2219) 49 U/L COVID-19 (ID NOW RAPID TESTING)2020-09-23 16:11:00 Test Item Value Reference Range Interpretation Comments SARS-CoV-2 Rapid ID NOW Not Detected Not Detected (test code = 87738-7) ZAIDA (test code = ZAIDA) ID NOW COVID-19 Assay is an isothermal nucleic acid amplification test intended for the qualitative detection of nucleic acid from SARS-CoV-2 viral RNA in nasopharyngeal (FORMER HAND) specimens. It is used under Emergency Use [...] indicated. Lab Interpretation Normal (test code = 53870-5) [facility]2020[facility]14 18:18:00 Test Item Value Reference Range Interpretation Comments SARS-CoV-2 Rapid ID NOW Not Detected Not Detected (test code = 34151-0) ZAIDA (test code = ZAIDA) ID NOW COVID-19 Assay is an isothermal nucleic acid amplification test intended for the qualitative detection of nucleic acid from SARS-CoV-2 viral RNA in nasopharyngeal (FORMER HAND) specimens. It is used under Emergency Use [...] indicated. Lab Interpretation Normal (test code = 01732-3) [facility] 2 [id number] 17:57:50 Interstitial vascular congestion. Bibasilar streaky opacities, [...] reviewed this study and agree with theabove report.[facility] [id number] 17:28:00 Test Item Value Reference Range Interpretation Comments TROPONIN I (test 0.001 ng/mL See_Comment [Automated code = 4864603438) message] The system which generated this result [...] ? Lab Interpretation Normal (test code = 84974-8) [facility] [id number] 17:25:00 Test Item Value Reference Range Interpretation Comments NT-proBNP (test code 129 pg/mL See_Comment H [Autom ated = 9383059664) message] The system which generated this result transmitted reference range : <=125. The reference range was not used to interpret this result as normal/abnormal . ZAIDA (test code = ZAIDA) Biotin has been reported to cause a negative bias, interpret results relative to patient's use of biotin. Lab Interpretation Abnormal (test code = 33766-8) [facility] 17:17:00 Test Item Value Reference Range Interpretation Comments APTT Patient (test See_Comment [Automat ed code = 3173-2) message] The system which generated this result transmitted reference range : 23 - 38 Seconds . The reference range was not used to interpr et this result as normal/abnormal . ZAIDA (test code = ZAIDA) The [facility] patient population mean normal value for aPTT is 30 seconds. Lab Interpretation Normal (test code = 08473-3) [facility]OL[facility] PAN[facility] (41290)2020-08-14 17:17:00 Test Item Value Reference Range Interpretation Comments NA (test code = 137 mmol/L 135-145 5286733725) K (test code = 4.3 mmol/L 3.5-5 2578186440) CL (test code = 97 mmol/L 98-108 L 8302451358) CO2 TOTAL (test code = 31 mmol/L 23-31 8525406376) AGAP (test code = 2-16 5754444335) BUN (test code = 14 mg/dL 7-23 0713641496) GLUCOSE (test code = 135 mg/dL 70-110 H 0919498921) CREATININE (test code = 1.22 mg/dL 0.6-1.25 0505116810) TOTAL BILI (test code = 1.0 mg/dL 0.1-1.5 4941106694) CALCIUM (test code = 9.1 mg/dL 8.6-10.6 4147131814) T PROTEIN (test code = 7.6 g/dL 6.3-8.2 2180230693) ALBUMIN (test code = 4.0 g/dL 3.5-5 8065137476) ALK PHOS (test code = 90 U/L 34-122 0355447896) ALTv (test code = 22 U/L 5-50 1742-6) AST(SGOT) (test code = 25 U/L 13-40 3195294339) eGFR Calculation mL/min/1.73m2 (Non-) (test code = 5924942574) eGFR Calculation mL/min/1.73m2 () (test code = 4121452968) ZAIDA (test code = ZAIDA) Association of [...] tests). Lab Interpretation Abnormal (test code = 55574-1) [facility], [id number] 17:16:00 Test Item Value Reference Range Interpretation Comments LIPASE (test code = 9690506668) 63 U/L 0-220 Lab Interpretation (test code = Normal 88827-3) [facility] HospitalPROTHROMBIN TIME / [id number] 17:14:00 Test Item Value Reference Range Interpretation [...] tions. Lab Interpretation (test Normal code = 48973-6) [facility] HospitalCB WITH [id number] 17:09:00 Test Item Value Reference Range Interpretation Comments WBC (test code = See_Comment [Automated 9290-2) message] The sy stem which generated this result transmitted reference range : 4.20 - 10.70 10*3/?L. The reference range was not used to interpret this result as normal/abnormal . RBC (test code = See_Comment [Automated 545-8) message] The sy stem which generated this [...] RDW-SD (test code = 41.4 fL 38.5-51.6 85094-0) RDW-CV (test code = 14.6 % 12.1-15.4 788-0) PLT (test code = See_Comment H [Automated 777-3) message] The sy stem which generated this result transmitted reference range : 150 - 328 10*3/ ?L. The reference r matthew was not used to interpret this result as normal/abnormal . MPV (test code = 10.8 fL 9.8-13 41176-7) NRBC/100 WBC (test See_Comment [Automat ed code = 1518350929) message] The system which generated this result transmitted reference range : 0.0 - 10.0 /100 WBCs. The refer ence range was not u sed to interpret th is result as normal/abnormal . NRBC x10^3 (test code <0.01 See_Comment [Auto mated = 0159463034) message] The s ystem which generated this result transmitted reference range : 10*3/?L. The reference range was not used to interpret this result as normal/abnormal . GRAN MAT (NEUT) % 65.2 % (test code = 770-8) IMM GRAN % (test code 0.30 % = 9705981851) LYMPH % (test code = 18.9 % 736-9) MONO % (test code = 11.3 % 5905-5) EOS % (test code = 3.7 % 713-8) BASO % (test code = 0.6 % 706-2) GRAN MAT x10^3(ANC) 5.78 10*3/uL 1.99-6.95 (test code = 6461567132) IMM GRAN x10^3 (test 0.03 10*3/uL 0-0.06 code = 0049339733) LYMPH x10^3 (test code 1.68 10*3/uL 1.09-3.23 = 731-0) MONO x10^3 (test code 1.00 10*3/uL 0.36-1.02 = 742-7) EOS x10^3 (test code = 0.33 10*3/uL 0.06-0.53 711-2) BASO x10^3 (test code 0.05 10*3/uL 0.01-0.09 = 704-7) Lab Interpretation Abnormal (test code = 50786-7) [facility]CBC [facility]O [id number] 00:00:00 Test Item Value Reference Range Interpretation [...] code = 1015) 322 K/UL CBC W/AUTO [id number] 00:00:00 Test Item Value Reference Range Interpretation [...] code = 1015) 322 K/UL CBC W/AUTO [id number] 00:00:00 Test Item Value Reference Range Interpretation [...] code = 1015) 322 K/UL COMPREHENSIVE METABOLIC [id number] 00:00:00 Test Item Value Reference Range Interpretation Comments GLUCOSE (test code = 2217) 100 MG/DL BUN (test code = 2208) 13 MG/DL CREATININE (test code = 2214) 1.10 MG/DL eGFR AMER. (test code 91 ML/MIN/1.73 = 48166) eGFR NON- AMER. (test 78 ML/MIN/1.73 code = 04151) CALC BUN/CREAT (test code = 12 RATIO [...] code = 2219) 22 U/L COMPREHENSIVE METABOLIC [id number] 00:00:00 Test Item Value Reference Range Interpretation Comments GLUCOSE (test code = 2217) 100 MG/DL BUN (test code = 2208) 13 MG/DL CREATININE (test code = 2214) 1.10 MG/DL eGFR AMER. (test code 91 ML/MIN/1.73 = 74450) eGFR NON- AMER. (test 78 ML/MIN/1.73 code = 39134) CALC BUN/CREAT (test code = 12 RATIO [...] (test code = 2219) 22 U/L LIPID [id number] 00:00:00 Test Item Value Reference Range Interpretation Comments CHOLESTEROL (test code = 2210) 263 MG/DL TRIGLYCERIDES (test code = 2232) 413 MG/DL HDL CHOLESTEROL (test code = 43 MG/DL 2220) CALC LDL CHOL (test code = 2237) NOTE MG/DL RISK RATIO LDL/HDL (test code = (NOTE) RATIO 2238) LIPID [id number] 00:00:00 Test Item Value Reference Range Interpretation Comments CHOLESTEROL (test code = 2210) 263 MG/DL TRIGLYCERIDES (test code = 2232) 413 MG/DL HDL CHOLESTEROL (test code = 43 MG/DL 2220) CALC LDL CHOL (test code = 2237) NOTE MG/DL RISK RATIO LDL/HDL (test code = (NOTE) RATIO 2238) HEMOGLOBIN [id number] 00:00:00 Test Item Value Reference Range Interpretation Comments HEMOGLOBIN A1c (test code = 03290) 6.9 % HEMOGLOBIN [id number] 00:00:00 Test Item Value Reference Range Interpretation Comments HEMOGLOBIN A1c (test code = 02007) 6.9 % HEMOGLOBIN [id number] 00:00:00 Test Item Value Reference Range Interpretation Comments HEMOGLOBIN A1c (test code = 23990) 6.9 % URIC [id number] 00:00:00 Test Item Value Reference Range Interpretation Comments URIC ACID (test code = 2233) 9.8 MG/DL URIC [id number] 00:00:00 Test Item Value Reference Range Interpretation Comments URIC ACID (test code = 2233) 9.8 MG/DL CBC W/AUTO [id number] 00:00:00 Test Item Value Reference Range Interpretation [...] code = 1015) 322 K/UL CBC W/AUTO [id number] 00:00:00 Test Item Value Reference Range Interpretation [...] code = 1015) 322 K/UL COMPREHENSIVE METABOLIC [id number] 00:00:00 Test Item Value Reference Range Interpretation Comments GLUCOSE (test code = 2217) 100 MG/DL BUN (test code = 2208) 13 MG/DL CREATININE (test code = 2214) 1.10 MG/DL eGFR AMER. (test code 91 ML/MIN/1.73 = 82772) eGFR NON- AMER. (test 78 ML/MIN/1.73 code = 48512) CALC BUN/CREAT (test code = 12 RATIO 2235) SODIUM (test code = 2231) 140 MEQ/L POTASSIUM (test code = 2228) 4.2 MEQ/L CHLORIDE (test code = 2215) 97 MEQ/L CARBON DIOXIDE (test code = 32 MEQ/L 220) CALCIUM (test code = 2209) 9.4 MG/DL PROTEIN, TOTAL (test code = 8.1 G/DL 222) ALBUMIN (test code = 2201) 4.3 G/DL CALC GLOBULIN (test code = 3.8 G/DL 2240) CALC A/G RATIO (test code = 1.1 RATIO 2234) BILIRUBIN, TOTAL (test code = 0.4 MG/DL 220) ALKALINE PHOSPHATASE (test 106 U/L code = 2204) AST (test code = 2218) 16 U/L ALT (test code = 2219) 22 U/L CBC W/AUTO [id number] 00:00:00 Test Item Value Reference Range Interpretation [...] code = 1015) 322 K/UL CBC W/AUTO [id number] 00:00:00 Test Item Value Reference Range Interpretation [...] code = 1015) 322 K/UL CBC W/AUTO [id number] 00:00:00 Test Item Value Reference Range Interpretation [...] code = 1015) 322 K/UL COMPREHENSIVE METABOLIC [id number] 00:00:00 Test Item Value Reference Range Interpretation Comments GLUCOSE (test code = 2217) 100 MG/DL BUN (test code = 2208) 13 MG/DL CREATININE (test code = 2214) 1.10 MG/DL eGFR AMER. (test code 91 ML/MIN/1.73 = 61420) eGFR NON- AMER. (test 78 ML/MIN/1.73 code = 41696) CALC BUN/CREAT (test code = 12 RATIO [...] code = 2219) 22 U/L COMPREHENSIVE METABOLIC [id number] 00:00:00 Test Item Value Reference Range Interpretation Comments GLUCOSE (test code = 2217) 100 MG/DL BUN (test code = 2208) 13 MG/DL CREATININE (test code = 2214) 1.10 MG/DL eGFR AMER. (test code 91 ML/MIN/1.73 = 67269) eGFR NON- AMER. (test 78 ML/MIN/1.73 code = 51194) CALC BUN/CREAT (test code = 12 RATIO [...] BILIRUBIN, TOTAL (test code = 0.4 MG/DL 2207) ALKALINE PHOSPHATASE (test 106 U/L code = 2204) AST (test code = 2218) 16 U/L ALT (test code = 2219) 22 U/L LIPID [id number] 00:00:00 Test Item Value Reference Range Interpretation Comments CHOLESTEROL (test code = 2210) 263 MG/DL TRIGLYCERIDES (test code = 2232) 413 MG/DL HDL CHOLESTEROL (test code = 43 MG/DL 2220) CALC LDL CHOL (test code = 2237) NOTE MG/DL RISK RATIO LDL/HDL (test code = (NOTE) RATIO 2238) LIPID [id number] 00:00:00 Test Item Value Reference Range Interpretation Comments CHOLESTEROL (test code = 2210) 263 MG/DL TRIGLYCERIDES (test code = 2232) 413 MG/DL HDL CHOLESTEROL (test code = 43 MG/DL 2220) CALC LDL CHOL (test code = 2237) NOTE MG/DL RISK RATIO LDL/HDL (test code = (NOTE) RATIO 2238) HEMOGLOBIN [id number] 00:00:00 Test Item Value Reference Range Interpretation Comments HEMOGLOBIN A1c (test code = 72602) 6.9 % HEMOGLOBIN [id number] 00:00:00 Test Item Value Reference Range Interpretation Comments HEMOGLOBIN A1c (test code = 44540) 6.9 % HEMOGLOBIN [id number] 00:00:00 Test Item Value Reference Range Interpretation Comments HEMOGLOBIN A1c (test code = 46991) 6.9 % URIC [id number] 00:00:00 Test Item Value Reference Range Interpretation Comments URIC ACID (test code = 2233) 9.8 MG/DL URIC [id number] 00:00:00 Test Item Value Reference Range Interpretation Comments URIC ACID (test code = 2233) 9.8 MG/DL LIPID [id number] 00:00:00 Test Item Value Reference Range Interpretation Comments CHOLESTEROL (test code = 2210) 263 MG/DL TRIGLYCERIDES (test code = 2232) 413 MG/DL HDL CHOLESTEROL (test code = 43 MG/DL 2220) CALC LDL CHOL (test code = 2237) NOTE MG/DL RISK RATIO LDL/HDL (test code = (NOTE) RATIO 2238) HEMOGLOBIN [id number] 00:00:00 Test Item Value Reference Range Interpretation Comments HEMOGLOBIN A1c (test code = 22436) 6.9 % HEMOGLOBIN [id number] 00:00:00 Test Item Value Reference Range Interpretation Comments HEMOGLOBIN A1c (test code = 42751) 6.9 % URIC [id number] 00:00:00 Test Item Value Reference Range Interpretation Comments URIC ACID (test code = 2233) 9.8 MG/DL CBC W/AUTO [id number] 00:00:00 Test Item Value Reference Range Interpretation [...] code = 1015) 322 K/UL CBC W/AUTO [id number] 00:00:00 Test Item Value Reference Range Interpretation [...] code = 1015) 322 K/UL CBC W/AUTO [id number] 00:00:00 Test Item Value Reference Range Interpretation [...] code = 1015) 322 K/UL COMPREHENSIVE METABOLIC [id number] 00:00:00 Test Item Value Reference Range Interpretation Comments GLUCOSE (test code = 2217) 100 MG/DL BUN (test code = 2208) 13 MG/DL CREATININE (test code = 2214) 1.10 MG/DL eGFR AMER. (test code 91 ML/MIN/1.73 = 38200) eGFR NON- AMER. (test 78 ML/MIN/1.73 code = 49441) CALC BUN/CREAT (test code = 12 RATIO [...] code = 2219) 22 U/L COMPREHENSIVE METABOLIC [id number] 00:00:00 Test Item Value Reference Range Interpretation Comments GLUCOSE (test code = 2217) 100 MG/DL BUN (test code = 2208) 13 MG/DL CREATININE (test code = 2214) 1.10 MG/DL eGFR AMER. (test code 91 ML/MIN/1.73 = 08299) eGFR NON- AMER. (test 78 ML/MIN/1.73 code = 34324) CALC BUN/CREAT (test code = 12 RATIO [...] (test code = 2219) 22 U/L LIPID [id number] 00:00:00 Test Item Value Reference Range Interpretation Comments CHOLESTEROL (test code = 2210) 263 MG/DL TRIGLYCERIDES (test code = 2232) 413 MG/DL HDL CHOLESTEROL (test code = 43 MG/DL 2220) CALC LDL CHOL (test code = 2237) NOTE MG/DL RISK RATIO LDL/HDL (test code = (NOTE) RATIO 2238) LIPID [id number] 00:00:00 Test Item Value Reference Range Interpretation Comments CHOLESTEROL (test code = 2210) 263 MG/DL TRIGLYCERIDES (test code = 2232) 413 MG/DL HDL CHOLESTEROL (test code = 43 MG/DL 2220) CALC LDL CHOL (test code = 2237) NOTE MG/DL RISK RATIO LDL/HDL (test code = (NOTE) RATIO 2238) HEMOGLOBIN [id number] 00:00:00 Test Item Value Reference Range Interpretation Comments HEMOGLOBIN A1c (test code = 45140) 6.9 % HEMOGLOBIN [id number] 00:00:00 Test Item Value Reference Range Interpretation Comments HEMOGLOBIN A1c (test code = 94193) 6.9 % HEMOGLOBIN [id number] 00:00:00 Test Item Value Reference Range Interpretation Comments HEMOGLOBIN A1c (test code = 43579) 6.9 % URIC [id number] 00:00:00 Test Item Value Reference Range Interpretation Comments URIC ACID (test code = 2233) 9.8 MG/DL URIC [id number] 00:00:00 Test Item Value Reference Range Interpretation Comments URIC ACID (test code = 2233) 9.8 MG/DL CBC W/AUTO [id number] 00:00:00 Test Item Value Reference Range Interpretation [...] code = 1015) 322 K/UL CBC W/AUTO [id number] 00:00:00 Test Item Value Reference Range Interpretation [...] code = 1015) 322 K/UL CBC W/AUTO [id number] 00:00:00 Test Item Value Reference Range Interpretation [...] code = 1015) 322 K/UL COMPREHENSIVE METABOLIC [id number] 00:00:00 Test Item Value Reference Range Interpretation Comments GLUCOSE (test code = 2217) 100 MG/DL BUN (test code = 2208) 13 MG/DL CREATININE (test code = 2214) 1.10 MG/DL eGFR AMER. (test code 91 ML/MIN/1.73 = 01910) eGFR NON- AMER. (test 78 ML/MIN/1.73 code = 40184) CALC BUN/CREAT (test code = 12 RATIO [...] code = 2219) 22 U/L COMPREHENSIVE METABOLIC [id number] 00:00:00 Test Item Value Reference Range Interpretation Comments GLUCOSE (test code = 2217) 100 MG/DL BUN (test code = 2208) 13 MG/DL CREATININE (test code = 2214) 1.10 MG/DL eGFR AMER. (test code 91 ML/MIN/1.73 = 56943) eGFR NON- AMER. (test 78 ML/MIN/1.73 code = 45324) CALC BUN/CREAT (test code = 12 RATIO [...] (test code = 2219) 22 U/L LIPID [id number] 00:00:00 Test Item Value Reference Range Interpretation Comments CHOLESTEROL (test code = 2210) 263 MG/DL TRIGLYCERIDES (test code = 2232) 413 MG/DL HDL CHOLESTEROL (test code = 43 MG/DL 2220) CALC LDL CHOL (test code = 2237) NOTE MG/DL RISK RATIO LDL/HDL (test code = (NOTE) RATIO 2238) LIPID [id number] 00:00:00 Test Item Value Reference Range Interpretation Comments CHOLESTEROL (test code = 2210) 263 MG/DL TRIGLYCERIDES (test code = 2232) 413 MG/DL HDL CHOLESTEROL (test code = 43 MG/DL 2220) CALC LDL CHOL (test code = 2237) NOTE MG/DL RISK RATIO LDL/HDL (test code = (NOTE) RATIO 2238) HEMOGLOBIN [id number] 00:00:00 Test Item Value Reference Range Interpretation Comments HEMOGLOBIN A1c (test code = 77395) 6.9 % HEMOGLOBIN [id number] 00:00:00 Test Item Value Reference Range Interpretation Comments HEMOGLOBIN A1c (test code = 46345) 6.9 % HEMOGLOBIN [id number] 00:00:00 Test Item Value Reference Range Interpretation Comments HEMOGLOBIN A1c (test code = 61193) 6.9 % URIC [id number] 00:00:00 Test Item Value Reference Range Interpretation Comments URIC ACID (test code = 2233) 9.8 MG/DL URIC [id number] 00:00:00 Test Item Value Reference Range Interpretation Comments URIC ACID (test code = 2233) 9.8 MG/DL CBC W/AUTO [id number] 00:00:00 Test Item Value Reference Range Interpretation [...] code = 1015) 322 K/UL CBC W/AUTO [id number] 00:00:00 Test Item Value Reference Range Interpretation [...] code = 1015) 322 K/UL CBC W/AUTO [id number] 00:00:00 Test Item Value Reference Range Interpretation [...] code = 1015) 322 K/UL COMPREHENSIVE METABOLIC [id number] 00:00:00 Test Item Value Reference Range Interpretation Comments GLUCOSE (test code = 2217) 100 MG/DL BUN (test code = 2208) 13 MG/DL CREATININE (test code = 2214) 1.10 MG/DL eGFR AMER. (test code 91 ML/MIN/1.73 = 98604) eGFR NON- AMER. (test 78 ML/MIN/1.73 code = 27806) CALC BUN/CREAT (test code = 12 RATIO [...] code = 2219) 22 U/L COMPREHENSIVE METABOLIC [id number] 00:00:00 Test Item Value Reference Range Interpretation Comments GLUCOSE (test code = 2217) 100 MG/DL BUN (test code = 2208) 13 MG/DL CREATININE (test code = 2214) 1.10 MG/DL eGFR AMER. (test code 91 ML/MIN/1.73 = 57345) eGFR NON- AMER. (test 78 ML/MIN/1.73 code = 75909) CALC BUN/CREAT (test code = 12 RATIO [...] (test code = 2219) 22 U/L LIPID [id number] 00:00:00 Test Item Value Reference Range Interpretation Comments CHOLESTEROL (test code = 2210) 263 MG/DL TRIGLYCERIDES (test code = 2232) 413 MG/DL HDL CHOLESTEROL (test code = 43 MG/DL 2220) CALC LDL CHOL (test code = 2237) NOTE MG/DL RISK RATIO LDL/HDL (test code = (NOTE) RATIO 2238) LIPID [id number] 00:00:00 Test Item Value Reference Range Interpretation Comments CHOLESTEROL (test code = 2210) 263 MG/DL TRIGLYCERIDES (test code = 2232) 413 MG/DL HDL CHOLESTEROL (test code = 43 MG/DL 2220) CALC LDL CHOL (test code = 2237) NOTE MG/DL RISK RATIO LDL/HDL (test code = (NOTE) RATIO 2238) HEMOGLOBIN [id number] 00:00:00 Test Item Value Reference Range Interpretation Comments HEMOGLOBIN A1c (test code = 74819) 6.9 % HEMOGLOBIN [id number] 00:00:00 Test Item Value Reference Range Interpretation Comments HEMOGLOBIN A1c (test code = 75447) 6.9 % HEMOGLOBIN [id number] 00:00:00 Test Item Value Reference Range Interpretation Comments HEMOGLOBIN A1c (test code = 52844) 6.9 % URIC [id number] 00:00:00 Test Item Value Reference Range Interpretation Comments URIC ACID (test code = 2233) 9.8 MG/DL URIC [id number] 00:00:00 Test Item Value Reference Range Interpretation Comments URIC ACID (test code = 2233) 9.8 MG/DL CBC W/AUTO [id number] 00:00:00 Test Item Value Reference Range Interpretation [...] code = 1015) 322 K/UL CBC W/AUTO [id number] 00:00:00 Test Item Value Reference Range Interpretation [...] code = 1015) 322 K/UL COMPREHENSIVE METABOLIC [id number] 00:00:00 Test Item Value Reference Range Interpretation Comments GLUCOSE (test code = 2217) 100 MG/DL BUN (test code = 2208) 13 MG/DL CREATININE (test code = 2214) 1.10 MG/DL eGFR AMER. (test code 91 ML/MIN/1.73 = 23322) eGFR NON- AMER. (test 78 ML/MIN/1.73 code = 82550) CALC BUN/CREAT (test code = 12 RATIO [...] (test code = 2219) 22 U/L LIPID [id number] 00:00:00 Test Item Value Reference Range Interpretation Comments CHOLESTEROL (test code = 2210) 263 MG/DL TRIGLYCERIDES (test code = 2232) 413 MG/DL HDL CHOLESTEROL (test code = 43 MG/DL 2219) CALC LDL CHOL (test code = 2237) NOTE MG/DL RISK RATIO LDL/HDL (test code = (NOTE) RATIO 2238) HEMOGLOBIN [id number] 00:00:00 Test Item Value Reference Range Interpretation Comments HEMOGLOBIN A1c (test code = 66339) 6.9 % HEMOGLOBIN [id number] 00:00:00 Test Item Value Reference Range Interpretation Comments HEMOGLOBIN A1c (test code = 75280) 6.9 % URIC [id number] 00:00:00 Test Item Value Reference Range Interpretation Comments URIC ACID (test code = 2233) 9.8 MG/DL CBC W/AUTO [id number] 00:00:00 Test Item Value Reference Range Interpretation [...] code = 1015) 322 K/UL CBC W/AUTO [id number] 00:00:00 Test Item Value Reference Range Interpretation [...] code = 1015) 322 K/UL COMPREHENSIVE METABOLIC [id number] 00:00:00 Test Item Value Reference Range Interpretation Comments GLUCOSE (test code = 2217) 100 MG/DL BUN (test code = 2208) 13 MG/DL CREATININE (test code = 2214) 1.10 MG/DL eGFR AMER. (test code 91 ML/MIN/1.73 = 42597) eGFR NON- AMER. (test 78 ML/MIN/1.73 code = 98153) CALC BUN/CREAT (test code = 12 RATIO [...] (test code = 2219) 22 U/L LIPID [id number] 00:00:00 Test Item Value Reference Range Interpretation Comments CHOLESTEROL (test code = 2210) 263 MG/DL TRIGLYCERIDES (test code = 2232) 413 MG/DL HDL CHOLESTEROL (test code = 43 MG/DL 2219) CALC LDL CHOL (test code = 2237) NOTE MG/DL RISK RATIO LDL/HDL (test code = (NOTE) RATIO 2238) HEMOGLOBIN [id number] 00:00:00 Test Item Value Reference Range Interpretation Comments HEMOGLOBIN A1c (test code = 87074) 6.9 % HEMOGLOBIN [id number] 00:00:00 Test Item Value Reference Range Interpretation Comments HEMOGLOBIN A1c (test code = 54273) 6.9 % URIC [id number] 00:00:00 Test Item Value Reference Range Interpretation Comments URIC ACID (test code = 2233) 9.8 MG/DL CBC W/AUTO [id number] 00:00:00 Test Item Value Reference Range Interpretation [...] code = 1015) 322 K/UL CBC W/AUTO [id number] 00:00:00 Test Item Value Reference Range Interpretation [...] code = 1015) 322 K/UL CBC W/AUTO [id number] 00:00:00 Test Item Value Reference Range Interpretation [...] code = 1015) 322 K/UL COMPREHENSIVE METABOLIC [id number] 00:00:00 Test Item Value Reference Range Interpretation Comments GLUCOSE (test code = 2217) 100 MG/DL BUN (test code = 2208) 13 MG/DL CREATININE (test code = 2214) 1.10 MG/DL eGFR AMER. (test code 91 ML/MIN/1.73 = 58822) eGFR NON- AMER. (test 78 ML/MIN/1.73 code = 49712) CALC BUN/CREAT (test code = 12 RATIO [...] code = 2219) 22 U/L COMPREHENSIVE METABOLIC [id number] 00:00:00 Test Item Value Reference Range Interpretation Comments GLUCOSE (test code = 2217) 100 MG/DL BUN (test code = 2208) 13 MG/DL CREATININE (test code = 2214) 1.10 MG/DL eGFR AMER. (test code 91 ML/MIN/1.73 = 51202) eGFR NON- AMER. (test 78 ML/MIN/1.73 code = 69902) CALC BUN/CREAT (test code = 12 RATIO [...] (test code = 2219) 22 U/L LIPID [id number] 00:00:00 Test Item Value Reference Range Interpretation Comments CHOLESTEROL (test code = 2210) 263 MG/DL TRIGLYCERIDES (test code = 2232) 413 MG/DL HDL CHOLESTEROL (test code = 43 MG/DL 2220) CALC LDL CHOL (test code = 2237) NOTE MG/DL RISK RATIO LDL/HDL (test code = (NOTE) RATIO 2238) LIPID [id number] 00:00:00 Test Item Value Reference Range Interpretation Comments CHOLESTEROL (test code = 2210) 263 MG/DL TRIGLYCERIDES (test code = 2232) 413 MG/DL HDL CHOLESTEROL (test code = 43 MG/DL 2220) CALC LDL CHOL (test code = 2237) NOTE MG/DL RISK RATIO LDL/HDL (test code = (NOTE) RATIO 2238) HEMOGLOBIN [id number] 00:00:00 Test Item Value Reference Range Interpretation Comments HEMOGLOBIN A1c (test code = 42170) 6.9 % HEMOGLOBIN [id number] 00:00:00 Test Item Value Reference Range Interpretation Comments HEMOGLOBIN A1c (test code = 35652) 6.9 % HEMOGLOBIN [id number] 00:00:00 Test Item Value Reference Range Interpretation Comments HEMOGLOBIN A1c (test code = 18288) 6.9 % URIC [id number] 00:00:00 Test Item Value Reference Range Interpretation Comments URIC ACID (test code = 2233) 9.8 MG/DL URIC [id number] 00:00:00 Test Item Value Reference Range Interpretation Comments URIC ACID (test code = 2233) 9.8 MG/DL URIC [id number] 00:00:00 Test Item Value Reference Range Interpretation Comments URIC ACID (test code = 2233) 9.2 MG/DL URIC [id number] 00:00:00 Test Item Value Reference Range Interpretation Comments URIC ACID (test code = 2233) 9.2 MG/DL URIC [id number] 00:00:00 Test Item Value Reference Range Interpretation Comments URIC ACID (test code = 2233) 9.2 MG/DL URIC [id number] 00:00:00 Test Item Value Reference Range Interpretation Comments URIC ACID (test code = 2233) 9.2 MG/DL URIC [id number] 00:00:00 Test Item Value Reference Range Interpretation Comments URIC ACID (test code = 2233) 9.2 MG/DL URIC [id number] 00:00:00 Test Item Value Reference Range Interpretation Comments URIC ACID (test code = 2233) 9.2 MG/DL URIC [id number] 00:00:00 Test Item Value Reference Range Interpretation Comments URIC ACID (test code = 2233) 9.2 MG/DL URIC [id number] 00:00:00 Test Item Value Reference Range Interpretation Comments URIC ACID (test code = 2233) 9.2 MG/DL URIC [id number] 00:00:00 Test Item Value Reference Range Interpretation Comments URIC ACID (test code = 2233) 9.2 MG/DL URIC [id number] 00:00:00 Test Item Value Reference Range Interpretation Comments URIC ACID (test code = 2233) 9.2 MG/DL URIC [id number] 00:00:00 Test Item Value Reference Range Interpretation Comments URIC ACID (test code = 2233) 9.2 MG/DL URIC [id number] 00:00:00 Test Item Value Reference Range Interpretation Comments URIC ACID (test code = 2233) 9.2 MG/DL URIC [id number] 00:00:00 Test Item Value Reference Range Interpretation Comments URIC ACID (test code = 2233) 9.2 MG/DL URIC [id number] 00:00:00 Test Item Value Reference Range Interpretation Comments URIC ACID (test code = 2233) 9.2 MG/DL URIC [id number] 00:00:00 Test Item Value Reference Range Interpretation Comments URIC ACID (test code = 2233) 9.2 MG/DL HEMOGLOBIN [id number] 00:00:00 Test Item Value Reference Range Interpretation Comments HEMOGLOBIN A1c (test code = 76082) 6.8 % HEMOGLOBIN [id number] 00:00:00 Test Item Value Reference Range Interpretation Comments HEMOGLOBIN A1c (test code = 53638) 6.8 % HEMOGLOBIN [id number] 00:00:00 Test Item Value Reference Range Interpretation Comments HEMOGLOBIN A1c (test code = 29447) 6.8 % LIPID [id number] 00:00:00 Test Item Value Reference Range Interpretation Comments CHOLESTEROL (test code = 2210) 233 MG/DL TRIGLYCERIDES (test code = 2232) 438 MG/DL HDL CHOLESTEROL (test code = 39 MG/DL 2220) CALC LDL CHOL (test code = 2237) NOTE MG/DL RISK RATIO LDL/HDL (test code = (NOTE) RATIO 2238) LIPID [id number] 00:00:00 Test Item Value Reference Range Interpretation Comments CHOLESTEROL (test code = 2210) 233 MG/DL TRIGLYCERIDES (test code = 2232) 438 MG/DL HDL CHOLESTEROL (test code = 39 MG/DL 2220) CALC LDL CHOL (test code = 2237) NOTE MG/DL RISK RATIO LDL/HDL (test code = (NOTE) RATIO 2238) HEMOGLOBIN [id number] 00:00:00 Test Item Value Reference Range Interpretation Comments HEMOGLOBIN A1c (test code = 31195) 6.8 % HEMOGLOBIN [id number] 00:00:00 Test Item Value Reference Range Interpretation Comments HEMOGLOBIN A1c (test code = 77757) 6.8 % LIPID [id number] 00:00:00 Test Item Value Reference Range Interpretation Comments CHOLESTEROL (test code = 2210) 233 MG/DL TRIGLYCERIDES (test code = 2232) 438 MG/DL HDL CHOLESTEROL (test code = 39 MG/DL 2220) CALC LDL CHOL (test code = 2237) NOTE MG/DL RISK RATIO LDL/HDL (test code = (NOTE) RATIO 2238) HEMOGLOBIN [id number] 00:00:00 Test Item Value Reference Range Interpretation Comments HEMOGLOBIN A1c (test code = 40094) 6.8 % HEMOGLOBIN [id number] 00:00:00 Test Item Value Reference Range Interpretation Comments HEMOGLOBIN A1c (test code = 57685) 6.8 % HEMOGLOBIN [id number] 00:00:00 Test Item Value Reference Range Interpretation Comments HEMOGLOBIN A1c (test code = 90612) 6.8 % LIPID [id number] 00:00:00 Test Item Value Reference Range Interpretation Comments CHOLESTEROL (test code = 2210) 233 MG/DL TRIGLYCERIDES (test code = 2232) 438 MG/DL HDL CHOLESTEROL (test code = 39 MG/DL 2220) CALC LDL CHOL (test code = 2237) NOTE MG/DL RISK RATIO LDL/HDL (test code = (NOTE) RATIO 2238) LIPID [id number] 00:00:00 Test Item Value Reference Range Interpretation Comments CHOLESTEROL (test code = 2210) 233 MG/DL TRIGLYCERIDES (test code = 2232) 438 MG/DL HDL CHOLESTEROL (test code = 39 MG/DL 2220) CALC LDL CHOL (test code = 2237) NOTE MG/DL RISK RATIO LDL/HDL (test code = (NOTE) RATIO 2238) HEMOGLOBIN [id number] 00:00:00 Test Item Value Reference Range Interpretation Comments HEMOGLOBIN A1c (test code = 51028) 6.8 % HEMOGLOBIN [id number] 00:00:00 Test Item Value Reference Range Interpretation Comments HEMOGLOBIN A1c (test code = 68060) 6.8 % HEMOGLOBIN [id number] 00:00:00 Test Item Value Reference Range Interpretation Comments HEMOGLOBIN A1c (test code = 13060) 6.8 % LIPID [id number] 00:00:00 Test Item Value Reference Range Interpretation Comments CHOLESTEROL (test code = 2210) 233 MG/DL TRIGLYCERIDES (test code = 2232) 438 MG/DL HDL CHOLESTEROL (test code = 39 MG/DL 2220) CALC LDL CHOL (test code = 2237) NOTE MG/DL RISK RATIO LDL/HDL (test code = (NOTE) RATIO 2238) LIPID [id number] 00:00:00 Test Item Value Reference Range Interpretation Comments CHOLESTEROL (test code = 2210) 233 MG/DL TRIGLYCERIDES (test code = 2232) 438 MG/DL HDL CHOLESTEROL (test code = 39 MG/DL 2220) CALC LDL CHOL (test code = 2237) NOTE MG/DL RISK RATIO LDL/HDL (test code = (NOTE) RATIO 2238) HEMOGLOBIN [id number] 00:00:00 Test Item Value Reference Range Interpretation Comments HEMOGLOBIN A1c (test code = 20505) 6.8 % HEMOGLOBIN [id number] 00:00:00 Test Item Value Reference Range Interpretation Comments HEMOGLOBIN A1c (test code = 06910) 6.8 % HEMOGLOBIN [id number] 00:00:00 Test Item Value Reference Range Interpretation Comments HEMOGLOBIN A1c (test code = 09406) 6.8 % LIPID [id number] 00:00:00 Test Item Value Reference Range Interpretation Comments CHOLESTEROL (test code = 2210) 233 MG/DL TRIGLYCERIDES (test code = 2232) 438 MG/DL HDL CHOLESTEROL (test code = 39 MG/DL 2220) CALC LDL CHOL (test code = 2237) NOTE MG/DL RISK RATIO LDL/HDL (test code = (NOTE) RATIO 2238) LIPID [id number] 00:00:00 Test Item Value Reference Range Interpretation Comments CHOLESTEROL (test code = 2210) 233 MG/DL TRIGLYCERIDES (test code = 2232) 438 MG/DL HDL CHOLESTEROL (test code = 39 MG/DL 2220) CALC LDL CHOL (test code = 2237) NOTE MG/DL RISK RATIO LDL/HDL (test code = (NOTE) RATIO 2238) HEMOGLOBIN [id number] 00:00:00 Test Item Value Reference Range Interpretation Comments HEMOGLOBIN A1c (test code = 56208) 6.8 % HEMOGLOBIN [id number] 00:00:00 Test Item Value Reference Range Interpretation Comments HEMOGLOBIN A1c (test code = 71511) 6.8 % HEMOGLOBIN [id number] 00:00:00 Test Item Value Reference Range Interpretation Comments HEMOGLOBIN A1c (test code = 13254) 6.8 % LIPID [id number] 00:00:00 Test Item Value Reference Range Interpretation Comments CHOLESTEROL (test code = 2210) 233 MG/DL TRIGLYCERIDES (test code = 2232) 438 MG/DL HDL CHOLESTEROL (test code = 39 MG/DL 2220) CALC LDL CHOL (test code = 2237) NOTE MG/DL RISK RATIO LDL/HDL (test code = (NOTE) RATIO 2238) LIPID [id number] 00:00:00 Test Item Value Reference Range Interpretation Comments CHOLESTEROL (test code = 2210) 233 MG/DL TRIGLYCERIDES (test code = 2232) 438 MG/DL HDL CHOLESTEROL (test code = 39 MG/DL 2220) CALC LDL CHOL (test code = 2237) NOTE MG/DL RISK RATIO LDL/HDL (test code = (NOTE) RATIO 2238) HEMOGLOBIN [id number] 00:00:00 Test Item Value Reference Range Interpretation Comments HEMOGLOBIN A1c (test code = 73498) 6.8 % HEMOGLOBIN [id number] 00:00:00 Test Item Value Reference Range Interpretation Comments HEMOGLOBIN A1c (test code = 51956) 6.8 % LIPID [id number] 00:00:00 Test Item Value Reference Range Interpretation Comments CHOLESTEROL (test code = 2210) 233 MG/DL TRIGLYCERIDES (test code = 2232) 438 MG/DL HDL CHOLESTEROL (test code = 39 MG/DL 2220) CALC LDL CHOL (test code = 2237) NOTE MG/DL RISK RATIO LDL/HDL (test code = (NOTE) RATIO 2238) HEMOGLOBIN [id number] 00:00:00 Test Item Value Reference Range Interpretation Comments HEMOGLOBIN A1c (test code = 70183) 6.8 % HEMOGLOBIN [id number] 00:00:00 Test Item Value Reference Range Interpretation Comments HEMOGLOBIN A1c (test code = 50847) 6.8 % LIPID [id number] 00:00:00 Test Item Value Reference Range Interpretation Comments CHOLESTEROL (test code = 2210) 233 MG/DL TRIGLYCERIDES (test code = 2232) 438 MG/DL HDL CHOLESTEROL (test code = 39 MG/DL 2220) CALC LDL CHOL (test code = 2237) NOTE MG/DL RISK RATIO LDL/HDL (test code = (NOTE) RATIO 2238) HEMOGLOBIN [id number] 00:00:00 Test Item Value Reference Range Interpretation Comments HEMOGLOBIN A1c (test code = 64016) 6.8 % HEMOGLOBIN [id number] 00:00:00 Test Item Value Reference Range Interpretation Comments HEMOGLOBIN A1c (test code = 28301) 6.8 % HEMOGLOBIN [id number] 00:00:00 Test Item Value Reference Range Interpretation Comments HEMOGLOBIN A1c (test code = 88547) 6.8 % LIPID [id number] 00:00:00 Test Item Value Reference Range Interpretation Comments CHOLESTEROL (test code = 2210) 233 MG/DL TRIGLYCERIDES (test code = 2232) 438 MG/DL HDL CHOLESTEROL (test code = 39 MG/DL 2220) CALC LDL CHOL (test code = 2237) NOTE MG/DL RISK RATIO LDL/HDL (test code = (NOTE) RATIO 2238) LIPID [id number] 00:00:00 Test Item Value Reference Range Interpretation Comments CHOLESTEROL (test code = 2210) 233 MG/DL TRIGLYCERIDES (test code = 2232) 438 MG/DL HDL CHOLESTEROL (test code = 39 MG/DL 2220) CALC LDL CHOL (test code = 2237) NOTE MG/DL RISK RATIO LDL/HDL (test code = (NOTE) RATIO 2238) COMPREHENSIVE METABOLIC [id number] 00:00:00 Test Item Value Reference Range Interpretation Comments GLUCOSE (test code = 2217) 115 MG/DL BUN (test code = 2208) 14 MG/DL CREATININE (test code = 2214) 1.26 MG/DL eGFR AMER. (test code 78 ML/MIN/1.73 = 23186) eGFR NON- AMER. (test 67 ML/MIN/1.73 code = 29980) CALC BUN/CREAT (test code = 11 RATIO [...] code = 2219) 20 U/L COMPREHENSIVE METABOLIC [id number] 00:00:00 Test Item Value Reference Range Interpretation Comments GLUCOSE (test code = 2217) 115 MG/DL BUN (test code = 2208) 14 MG/DL CREATININE (test code = 2214) 1.26 MG/DL eGFR AMER. (test code 78 ML/MIN/1.73 = 13199) eGFR NON- AMER. (test 67 ML/MIN/1.73 code = 78330) CALC BUN/CREAT (test code = 11 RATIO [...] (test code = 2821) 2.4 UIU/ML LIPID [id number] 00:00:00 Test Item Value Reference Range Interpretation Comments CHOLESTEROL (test code = 2210) 240 MG/DL TRIGLYCERIDES (test code = 2232) 344 MG/DL HDL CHOLESTEROL (test code = 2220) 49 MG/DL CALC LDL CHOL (test code = 2237) 122 MG/DL RISK RATIO LDL/HDL (test code = 2.49 RATIO 2238) LIPID [id number] 00:00:00 Test Item Value Reference Range Interpretation Comments CHOLESTEROL (test code = 2210) 240 MG/DL TRIGLYCERIDES (test code = 2232) 344 MG/DL HDL CHOLESTEROL (test code = 2220) 49 MG/DL CALC LDL CHOL (test code = 2237) 122 MG/DL RISK RATIO LDL/HDL (test code = 2.49 RATIO 2238) COMPREHENSIVE METABOLIC [id number] 00:00:00 Test Item Value Reference Range Interpretation Comments GLUCOSE (test code = 2217) 115 MG/DL BUN (test code = 2208) 14 MG/DL CREATININE (test code = 2214) 1.26 MG/DL eGFR AMER. (test code 78 ML/MIN/1.73 = 81573) eGFR NON- AMER. (test 67 ML/MIN/1.73 code = 24938) CALC BUN/CREAT (test code = 11 RATIO [...] code = 2219) 20 U/L COMPREHENSIVE METABOLIC [id number] 00:00:00 Test Item Value Reference Range Interpretation Comments GLUCOSE (test code = 2217) 115 MG/DL BUN (test code = 2208) 14 MG/DL CREATININE (test code = 2214) 1.26 MG/DL eGFR AMER. (test code 78 ML/MIN/1.73 = 44989) eGFR NON- AMER. (test 67 ML/MIN/1.73 code = 15733) CALC BUN/CREAT (test code = 11 RATIO [...] = 0.6 MG/DL 220) ALKALINE PHOSPHATASE (test 98 U/L code = 2204) AST (test code = 2218) 21 U/L ALT (test code = 2219) 20 U/L COMPREHENSIVE METABOLIC [id number] 00:00:00 Test Item Value Reference Range Interpretation Comments GLUCOSE (test code = 2217) 115 MG/DL BUN (test code = 2208) 14 MG/DL CREATININE (test code = 2214) 1.26 MG/DL eGFR AMER. (test code 78 ML/MIN/1.73 = 83662) eGFR NON- AMER. (test 67 ML/MIN/1.73 code = 50468) CALC BUN/CREAT (test code = 11 RATIO [...] BILIRUBIN, TOTAL (test code = 0.6 MG/DL 7) ALKALINE PHOSPHATASE (test 98 U/L code = 2204) AST (test code = 2218) 21 U/L ALT (test code = 2219) 20 U/L THYROID II PROFILE (T3U, T4, T7, TSH)2016-09-22 00:00:00 Test Item Value Reference Range Interpretation Comments T3 UPTAKE (test code = 2817) 30.0 % T4 (THYROXINE) (test code = 2819) 5.4 UG/DL CALCULATED T7 (FTI) (test code = 1.62 6470) TSH (test code = 2821) 2.4 UIU/ML THYROID II PROFILE (T3U, T4, T7, TSH)2016-09-22 00:00:00 Test Item Value Reference Range Interpretation Comments T3 UPTAKE (test code = 2817) 30.0 % T4 (THYROXINE) (test code = 2819) 5.4 UG/DL CALCULATED T7 (FTI) (test code = 1.62 2820) TSH (test code = 2821) 2.4 UIU/ML LIPID [id number] 00:00:00 Test Item Value Reference Range Interpretation Comments CHOLESTEROL (test code = 2210) 240 MG/DL TRIGLYCERIDES (test code = 2232) 344 MG/DL HDL CHOLESTEROL (test code = 2220) 49 MG/DL CALC LDL CHOL (test code = 2237) 122 MG/DL RISK RATIO LDL/HDL (test code = 2.49 RATIO 2238) LIPID [id number] 00:00:00 Test Item Value Reference Range Interpretation [...] (test code = 2821) 2.4 UIU/ML LIPID [id number] 00:00:00 Test Item Value Reference Range Interpretation Comments CHOLESTEROL (test code = 2210) 240 MG/DL TRIGLYCERIDES (test code = 2232) 344 MG/DL HDL CHOLESTEROL (test code = 2220) 49 MG/DL CALC LDL CHOL (test code = 2237) 122 MG/DL RISK RATIO LDL/HDL (test code = 2.49 RATIO 2238) COMPREHENSIVE METABOLIC [id number] 00:00:00 Test Item Value Reference Range Interpretation Comments GLUCOSE (test code = 2217) 115 MG/DL BUN (test code = 2208) 14 MG/DL CREATININE (test code = 2214) 1.26 MG/DL eGFR AMER. (test code 78 ML/MIN/1.73 = 84704) eGFR NON- AMER. (test 67 ML/MIN/1.73 code = 40907) CALC BUN/CREAT (test code = 11 RATIO [...] code = 2219) 20 U/L COMPREHENSIVE METABOLIC [id number] 00:00:00 Test Item Value Reference Range Interpretation Comments GLUCOSE (test code = 2217) 115 MG/DL BUN (test code = 2208) 14 MG/DL CREATININE (test code = 2214) 1.26 MG/DL eGFR AMER. (test code 78 ML/MIN/1.73 = 39505) eGFR NON- AMER. (test 67 ML/MIN/1.73 code = 41694) CALC BUN/CREAT (test code = 11 RATIO [...] (test code = 2821) 2.4 UIU/ML LIPID [id number] 00:00:00 Test Item Value Reference Range Interpretation Comments CHOLESTEROL (test code = 2210) 240 MG/DL TRIGLYCERIDES (test code = 2232) 344 MG/DL HDL CHOLESTEROL (test code = 2220) 49 MG/DL CALC LDL CHOL (test code = 2237) 122 MG/DL RISK RATIO LDL/HDL (test code = 2.49 RATIO 2238) LIPID [id number] 00:00:00 Test Item Value Reference Range Interpretation Comments CHOLESTEROL (test code = 2210) 240 MG/DL TRIGLYCERIDES (test code = 2232) 344 MG/DL HDL CHOLESTEROL (test code = 2220) 49 MG/DL CALC LDL CHOL (test code = 2237) 122 MG/DL RISK RATIO LDL/HDL (test code = 2.49 RATIO 2238) COMPREHENSIVE METABOLIC [id number] 00:00:00 Test Item Value Reference Range Interpretation Comments GLUCOSE (test code = 2217) 115 MG/DL BUN (test code = 2208) 14 MG/DL CREATININE (test code = 2214) 1.26 MG/DL eGFR AMER. (test code 78 ML/MIN/1.73 = 83412) eGFR NON- AMER. (test 67 ML/MIN/1.73 code = 23761) CALC BUN/CREAT (test code = 11 RATIO [...] code = 2219) 20 U/L COMPREHENSIVE METABOLIC [id number] 00:00:00 Test Item Value Reference Range Interpretation Comments GLUCOSE (test code = 2217) 115 MG/DL BUN (test code = 2208) 14 MG/DL CREATININE (test code = 2214) 1.26 MG/DL eGFR AMER. (test code 78 ML/MIN/1.73 = 23145) eGFR NON- AMER. (test 67 ML/MIN/1.73 code = 76059) CALC BUN/CREAT (test code = 11 RATIO [...] (test code = 2821) 2.4 UIU/ML LIPID [id number] 00:00:00 Test Item Value Reference Range Interpretation Comments CHOLESTEROL (test code = 2210) 240 MG/DL TRIGLYCERIDES (test code = 2232) 344 MG/DL HDL CHOLESTEROL (test code = 2220) 49 MG/DL CALC LDL CHOL (test code = 2237) 122 MG/DL RISK RATIO LDL/HDL (test code = 2.49 RATIO 2238) LIPID [id number] 00:00:00 Test Item Value Reference Range Interpretation Comments CHOLESTEROL (test code = 2210) 240 MG/DL TRIGLYCERIDES (test code = 2232) 344 MG/DL HDL CHOLESTEROL (test code = 2220) 49 MG/DL CALC LDL CHOL (test code = 2237) 122 MG/DL RISK RATIO LDL/HDL (test code = 2.49 RATIO 2238) COMPREHENSIVE METABOLIC [id number] 00:00:00 Test Item Value Reference Range Interpretation Comments GLUCOSE (test code = 2217) 115 MG/DL BUN (test code = 2208) 14 MG/DL CREATININE (test code = 2214) 1.26 MG/DL eGFR AMER. (test code 78 ML/MIN/1.73 = 26373) eGFR NON- AMER. (test 67 ML/MIN/1.73 code = 28767) CALC BUN/CREAT (test code = 11 RATIO [...] = 0.6 MG/DL 2207) ALKALINE PHOSPHATASE (test 98 U/L code = 2204) AST (test code = 2218) 21 U/L ALT (test code = 2219) 20 U/L COMPREHENSIVE METABOLIC [id number] 00:00:00 Test Item Value Reference Range Interpretation Comments GLUCOSE (test code = 2217) 115 MG/DL BUN (test code = 2208) 14 MG/DL CREATININE (test code = 2214) 1.26 MG/DL eGFR AMER. (test code 78 ML/MIN/1.73 = 19080) eGFR NON- AMER. (test 67 ML/MIN/1.73 code = 88908) CALC BUN/CREAT (test code = 11 RATIO [...] = 0.6 MG/DL 2207) ALKALINE PHOSPHATASE (test 98 U/L code = 2204) AST (test code = 2218) 21 U/L ALT (test code = 2219) 20 U/L THYROID II PROFILE (T3U, T4, T7, TSH)2016-09-22 00:00:00 Test Item Value Reference Range Interpretation Comments T3 UPTAKE (test code = 2817) 30.0 % T4 (THYROXINE) (test code = 2819) 5.4 UG/DL CALCULATED T7 (FTI) (test code = 1.62 8310) TSH (test code = 2821) 2.4 UIU/ML THYROID II PROFILE (T3U, T4, T7, TSH)2016-09-22 00:00:00 Test Item Value Reference Range Interpretation Comments T3 UPTAKE (test code = 2817) 30.0 % T4 (THYROXINE) (test code = 2819) 5.4 UG/DL CALCULATED T7 (FTI) (test code = 1.62 9250) TSH (test code = 2821) 2.4 UIU/ML LIPID [id number] 00:00:00 Test Item Value Reference Range Interpretation Comments CHOLESTEROL (test code = 2210) 240 MG/DL TRIGLYCERIDES (test code = 2232) 344 MG/DL HDL CHOLESTEROL (test code = 2220) 49 MG/DL CALC LDL CHOL (test code = 2237) 122 MG/DL RISK RATIO LDL/HDL (test code = 2.49 RATIO 2238) LIPID [id number] 00:00:00 Test Item Value Reference Range Interpretation Comments CHOLESTEROL (test code = 2210) 240 MG/DL TRIGLYCERIDES (test code = 2232) 344 MG/DL HDL CHOLESTEROL (test code = 2220) 49 MG/DL CALC LDL CHOL (test code = 2237) 122 MG/DL RISK RATIO LDL/HDL (test code = 2.49 RATIO 2238) COMPREHENSIVE METABOLIC [id number] 00:00:00 Test Item Value Reference Range Interpretation Comments GLUCOSE (test code = 2217) 115 MG/DL BUN (test code = 2208) 14 MG/DL CREATININE (test code = 2214) 1.26 MG/DL eGFR AMER. (test code 78 ML/MIN/1.73 = 90456) eGFR NON- AMER. (test 67 ML/MIN/1.73 code = 15967) CALC BUN/CREAT (test code = 11 RATIO [...] (test code = 2821) 2.4 UIU/ML LIPID [id number] 00:00:00 Test Item Value Reference Range Interpretation Comments CHOLESTEROL (test code = 2210) 240 MG/DL TRIGLYCERIDES (test code = 2232) 344 MG/DL HDL CHOLESTEROL (test code = 2220) 49 MG/DL CALC LDL CHOL (test code = 2237) 122 MG/DL RISK RATIO LDL/HDL (test code = 2.49 RATIO 2238) COMPREHENSIVE METABOLIC [id number] 00:00:00 Test Item Value Reference Range Interpretation Comments GLUCOSE (test code = 2217) 115 MG/DL BUN (test code = 2208) 14 MG/DL CREATININE (test code = 2214) 1.26 MG/DL eGFR AMER. (test code 78 ML/MIN/1.73 = 72694) eGFR NON- AMER. (test 67 ML/MIN/1.73 code = 67159) CALC BUN/CREAT (test code = 11 RATIO [...] CALCULATED T7 (FTI) (test code = 1.62 0) TSH (test code = 2821) 2.4 UIU/ML LIPID [id number] 00:00:00 Test Item Value Reference Range Interpretation Comments CHOLESTEROL (test code = 2210) 240 MG/DL TRIGLYCERIDES (test code = 2232) 344 MG/DL HDL CHOLESTEROL (test code = 2220) 49 MG/DL CALC LDL CHOL (test code = 2237) 122 MG/DL RISK RATIO LDL/HDL (test code = 2.49 RATIO 2238) COMPREHENSIVE METABOLIC [id number] 00:00:00 Test Item Value Reference Range Interpretation Comments GLUCOSE (test code = 2217) 115 MG/DL BUN (test code = 2208) 14 MG/DL CREATININE (test code = 2214) 1.26 MG/DL eGFR AMER. (test code 78 ML/MIN/1.73 = 08053) eGFR NON- AMER. (test 67 ML/MIN/1.73 code = 87688) CALC BUN/CREAT (test code = 11 RATIO [...] code = 2219) 20 U/L COMPREHENSIVE METABOLIC [id number] 00:00:00 Test Item Value Reference Range Interpretation Comments GLUCOSE (test code = 2217) 115 MG/DL BUN (test code = 2208) 14 MG/DL CREATININE (test code = 2214) 1.26 MG/DL eGFR AMER. (test code 78 ML/MIN/1.73 = 70911) eGFR NON- AMER. (test 67 ML/MIN/1.73 code = 67352) CALC BUN/CREAT (test code = 11 RATIO [...] = 0.6 MG/DL 220) ALKALINE PHOSPHATASE (test 98 U/L code = [...] (test code = 2821) 2.4 UIU/ML LIPID [id number] 00:00:00 Test Item Value Reference Range Interpretation Comments CHOLESTEROL (test code = 2210) 240 MG/DL TRIGLYCERIDES (test code = 2232) 344 MG/DL HDL CHOLESTEROL (test code = 2220) 49 MG/DL CALC LDL CHOL (test code = 2237) 122 MG/DL RISK RATIO LDL/HDL (test code = 2.49 RATIO 2238) LIPID [id number] 00:00:00 Test Item Value Reference Range Interpretation Comments CHOLESTEROL (test code = 2210) 240 MG/DL TRIGLYCERIDES (test code = 2232) 344 MG/DL HDL CHOLESTEROL (test code = 2220) 49 MG/DL CALC LDL CHOL (test code = 2237) 122 MG/DL RISK RATIO LDL/HDL (test code = 2.49 RATIO 2238) HEMOGLOBIN [id number] 00:00:00 Test Item Value Reference Range Interpretation Comments HEMOGLOBIN A1c (test code = 76436) 7.0 % HEMOGLOBIN [id number] 00:00:00 Test Item Value Reference Range Interpretation Comments HEMOGLOBIN A1c (test code = 02096) 7.0 % HEMOGLOBIN [id number] 00:00:00 Test Item Value Reference Range Interpretation Comments HEMOGLOBIN A1c (test code = 71489) 7.0 % HEMOGLOBIN [id number] 00:00:00 Test Item Value Reference Range Interpretation Comments HEMOGLOBIN A1c (test code = 25998) 7.0 % HEMOGLOBIN [id number] 00:00:00 Test Item Value Reference Range Interpretation Comments HEMOGLOBIN A1c (test code = 02653) 7.0 % HEMOGLOBIN [id number] 00:00:00 Test Item Value Reference Range Interpretation Comments HEMOGLOBIN A1c (test code = 89498) 7.0 % HEMOGLOBIN [id number] 00:00:00 Test Item Value Reference Range Interpretation Comments HEMOGLOBIN A1c (test code = 68753) 7.0 % HEMOGLOBIN [id number] 00:00:00 Test Item Value Reference Range Interpretation Comments HEMOGLOBIN A1c (test code = 21475) 7.0 % HEMOGLOBIN [id number] 00:00:00 Test Item Value Reference Range Interpretation Comments HEMOGLOBIN A1c (test code = 36700) 7.0 % HEMOGLOBIN [id number] 00:00:00 Test Item Value Reference Range Interpretation Comments HEMOGLOBIN A1c (test code = 94308) 7.0 % HEMOGLOBIN [id number] 00:00:00 Test Item Value Reference Range Interpretation Comments HEMOGLOBIN A1c (test code = 45132) 7.0 % HEMOGLOBIN [id number] 00:00:00 Test Item Value Reference Range Interpretation Comments HEMOGLOBIN A1c (test code = 98653) 7.0 % HEMOGLOBIN [id number] 00:00:00 Test Item Value Reference Range Interpretation Comments HEMOGLOBIN A1c (test code = 59017) 7.0 % HEMOGLOBIN [id number] 00:00:00 Test Item Value Reference Range Interpretation Comments HEMOGLOBIN A1c (test code = 28403) 7.0 % HEMOGLOBIN [id number] 00:00:00 Test Item Value Reference Range Interpretation Comments HEMOGLOBIN A1c (test code = 31858) 7.0 % HEMOGLOBIN [id number] 00:00:00 Test Item Value Reference Range Interpretation Comments HEMOGLOBIN A1c (test code = 75835) 7.0 % HEMOGLOBIN [id number] 00:00:00 Test Item Value Reference Range Interpretation Comments HEMOGLOBIN A1c (test code = 51079) 7.0 % HEMOGLOBIN [id number] 00:00:00 Test Item Value Reference Range Interpretation Comments HEMOGLOBIN A1c (test code = 56895) 7.0 % HEMOGLOBIN [id number] 00:00:00 Test Item Value Reference Range Interpretation Comments HEMOGLOBIN A1c (test code = 80978) 7.0 % HEMOGLOBIN [id number] 00:00:00 Test Item Value Reference Range Interpretation Comments HEMOGLOBIN A1c (test code = 32952) 7.0 % HEMOGLOBIN [id number] 00:00:00 Test Item Value Reference Range Interpretation Comments HEMOGLOBIN A1c (test code = 64438) 7.0 % HEMOGLOBIN [id number] 00:00:00 Test Item Value Reference Range Interpretation Comments HEMOGLOBIN A1c (test code = 94711) 7.0 % HEMOGLOBIN [id number] 00:00:00 Test Item Value Reference Range Interpretation Comments HEMOGLOBIN A1c (test code = 03420) 7.0 % HEMOGLOBIN [id number] 00:00:00 Test Item Value Reference Range Interpretation Comments HEMOGLOBIN A1c (test code = 53635) 7.0 % CBC W/AUTO [id number] 00:00:00 Test Item Value Reference Range Interpretation [...] code = 1015) 321 K/UL CBC W/AUTO [id number] 00:00:00 Test Item Value Reference Range Interpretation [...] code = 1015) 321 K/UL CBC W/AUTO [id number] 00:00:00 Test Item Value Reference Range Interpretation [...] code = 1015) 321 K/UL CBC W/AUTO [id number] 00:00:00 Test Item Value Reference Range Interpretation [...] code = 1015) 321 K/UL CBC W/AUTO [id number] 00:00:00 Test Item Value Reference Range Interpretation [...] code = 1015) 321 K/UL CBC W/AUTO [id number] 00:00:00 Test Item Value Reference Range Interpretation [...] code = 1015) 321 K/UL CBC W/AUTO [id number] 00:00:00 Test Item Value Reference Range Interpretation [...] code = 1015) 321 K/UL CBC W/AUTO [id number] 00:00:00 Test Item Value Reference Range Interpretation [...] code = 1015) 321 K/UL CBC W/AUTO [id number] 00:00:00 Test Item Value Reference Range Interpretation [...] code = 1015) 321 K/UL CBC W/AUTO [id number] 00:00:00 Test Item Value Reference Range Interpretation [...] code = 1015) 321 K/UL CBC W/AUTO [id number] 00:00:00 Test Item Value Reference Range Interpretation [...] code = 1015) 321 K/UL CBC W/AUTO [id number] 00:00:00 Test Item Value Reference Range Interpretation [...] code = 1015) 321 K/UL CBC W/AUTO [id number] 00:00:00 Test Item Value Reference Range Interpretation [...] code = 1015) 321 K/UL CBC W/AUTO [id number] 00:00:00 Test Item Value Reference Range Interpretation [...] code = 1015) 321 K/UL CBC W/AUTO [id number] 00:00:00 Test Item Value Reference Range Interpretation [...] code = 1015) 321 K/UL CBC W/AUTO [id number] 00:00:00 Test Item Value Reference Range Interpretation [...] code = 1015) 321 K/UL CBC W/AUTO [id number] 00:00:00 Test Item Value Reference Range Interpretation [...] code = 1015) 321 K/UL CBC W/AUTO [id number] 00:00:00 Test Item Value Reference Range Interpretation [...] code = 1015) 321 K/UL CBC W/AUTO [id number] 00:00:00 Test Item Value Reference Range Interpretation [...] code = 1015) 321 K/UL CBC W/AUTO [id number] 00:00:00 Test Item Value Reference Range Interpretation [...] code = 1015) 321 K/UL CBC W/AUTO [id number] 00:00:00 Test Item Value Reference Range Interpretation [...] code = 1015) 321 K/UL CBC W/AUTO [id number] 00:00:00 Test Item Value Reference Range Interpretation [...] code = 1015) 321 K/UL CBC W/AUTO [id number] 00:00:00 Test Item Value Reference Range Interpretation [...] code = 1015) 321 K/UL CBC W/AUTO [id number] 00:00:00 Test Item Value Reference Range Interpretation [...]
--- NOTE | 2023-08-18 08:40 | RAD REPORT ---
EXAM DESCRIPTION: RAD - Chest Single View - 08/18/2023 8:31 am CLINICAL HISTORY: CHEST PAIN Chest pain. COMPARISON: Chest Single View dated 11/10/2022; Chest Single View dated 06/13/2022; Chest Single View dated 08/02/2020 FINDINGS: Portable technique limits examination quality. The lungs are grossly clear. The heart is normal in size. No displaced fractures. IMPRESSION: No acute intrathoracic process suspected.
[2023-08-18 08:49] LABS: Absolute Lymphocytes (CBC) 1.5 K/uL (0.7-4.9); Lymphocytes % 15.9 % (15.3-44.8); MPV 8.4 fL (7.6-11.3); Platelets 242 thou/uL (152-406); RBC Red Blood Cell Count 5.73 M/uL (4.33-5.43)
[2023-08-18] MEDS ORDERED: ASPIRIN 81 MG CHEWABLE TABLET ONE (08:51)
[2023-08-18 09:07] LABS: Potassium 3.5 mEq/L (3.5-5.1); Troponin High Sensitivity 29.2 pg/mL (<58.9)
[2023-08-18 09:57] LABS: Blood Morphology Comment NOT SEEN (NOT SEEN); Platelet Estimate ADEQ; White Blood Cell Scan OK (OK)
--- NOTE | 2023-08-18 10:35 | EDPHYS ---
Physician Documentation [facility] Name: Russel Sotelo Age: 53 yrs Sex: Male : 1970 Arrival Date: 08/18/2023 Time: 08:14 Bed 6 Private MD: ED Physician Milad Crump HPI: 08/18 08:50 This 53 yrs old Black Male presents to ER via Unassigned with complaints of Chest Pain. ms3 08:50 53-year-old male with past medical history of hypertension, diabetes, hyperlipidemia, ms3 congestive heart failure presents for chest pain that began yesterday. Patient states the pain is a 4/10 and feels like a muscle spasm, and is located substernally. Patient endorses shortness of breath. Patient denies alleviating or inciting factors. Patient states he has not taken aspirin.. Historical: - Allergies: 08:59 No Known Allergies; db - PMHx: 08:59 Hypercholesterolemia; Hypertensive disorder; Chronic obstructive lung disease; db Congestive heart failure; Diabetes mellitus; - PSHx: 08:59 hole in intestines repaired; db - Immunization history:: Adult Immunizations unknown. - Social history:: Smoking status: Patient denies any tobacco usage or history of. ROS: 08:55 Constitutional: Negative for fever, and chills. Neck: Negative for injury, pain, and ms3 swelling, 08:55 Abdomen/GI: Negative for abdominal pain, nausea, vomiting, diarrhea, and constipation, MS/Extremity: Negative for injury and deformity, Skin: Negative for injury, rash, and discoloration, 08:55 Cardiovascular: Positive for chest pain, 08:55 Respiratory: Positive for shortness of breath, 08:55 All other systems are negative, Exam: 08:55 Constitutional: This is a well developed, well nourished patient who is awake, alert, ms3 and in no acute distress. Head/Face: Normocephalic, atraumatic. Neck: Trachea midline, no cervical lymphadenopathy. Supple, full range of motion without nuchal rigidity, or vertebral point tenderness. No Meningismus. Chest/axilla: Normal chest wall appearance and motion. Nontender with no deformity. Cardiovascular: Regular rate and rhythm with a normal S1 and S2. No gallops, murmurs, or rubs. Normal PMI, no JVD. No pulse deficits. Respiratory: Lungs have equal breath sounds bilaterally, clear to auscultation and percussion. No rales, rhonchi or wheezes noted. No increased work of breathing, no retractions or nasal flaring. Abdomen/GI: Soft, non-tender, with normal bowel sounds. No distension or tympany. No guarding or rebound. No evidence of tenderness throughout. Skin: Warm, dry with normal turgor. Normal color with no rashes, no lesions, and no evidence of cellulitis. MS/ Extremity: Pulses equal, no cyanosis. Neurovascular intact. Full, normal range of motion. 09:06 ECG was reviewed by the Attending Physician. ms3 Vital Signs: 08:35 BP 160 / 85; Pulse 101; Resp 18; Temp 97.5(TE); Pulse Ox 92% on R/A; Weight 136.53 kg; db Height 5 ft. 9 in. ; Pain 5/10; 10:03 BP 149 / 86; Pulse 93; Resp 18; Pulse Ox 97% on R/A; ld1 12:00 BP 154 / 88; Pulse 95; Resp 18; Pulse Ox 97% on 1 lpm NC; db 08:35 Body Mass Index 44.45 (136.53 kg, 175.26 cm) db 08:35 Pain Scale: Adult db 08:35 PLACED ON 1L NC db MDM: 08:24 Patient medically screened. ms3 08:49 Independent interpretation of the following test(s) in the Emergency Department X-Ray: ms3 My interpretation is CXR image reviewed by me does not show Pulmonary edema, PNA, or PTX. 08:58 Differential diagnosis: abnormal EKG, acute myocardial infarction, coronary artery ms3 disease chest wall pain. 09:11 HEART Score: History: Slightly Suspicious (0), ECG: Normal (0), Age: > 45 and < 65 ms3 years (1), Risk Factors: > or = 3 Risk factors for atherosclerotic disease (2), [Hypercholesterolemia] [Hypertension] [DM] [Obesity] Troponin: < or = 1 x Normal Limit (0), Total Score = 3. The patient was given aspirin in the Emergency Department. 10:00 Data reviewed: vital signs, nurses notes, lab test result(s), EKG, radiologic studies, ms3 plain films, and as a result, I will admit patient. Consideration of Admission/Observation Patient was admitted/placed on observation. Management of patient was discussed with the following: Hospitalist: Umm Jimenes on behalf of Dr Burks. I considered the following discharge prescriptions or medication management in the emergency department Medications were administered in the Emergency Department. See MAR. Counseling: I had a detailed discussion with the patient and/or guardian regarding the historical points, exam findings, and any diagnostic results supporting the discharge/admit diagnosis, lab results, radiology results, the need for further work-up and treatment in the hospital. ED course: Discussed necessity for admission with patient. Patient understands/ agrees with plan.. 08/18 08:18 Order name: Basic Metabolic Panel; Complete Time: 09:08 ms3 08/18 08:18 Order name: CBC with Diff; Complete Time: 09:59 ms3 08/18 08:18 Order name: Troponin HS; Complete Time: 09:08 ms3 08/18 09:10 Order name: D-Dimer; Complete Time: 09:47 ms3 08/18 09:57 Order name: CBC Smear Scan; Complete Time: 09:59 EDMS 08/18 10:40 Order name: Thyroid Stimulating Hormone EDMS 08/18 10:40 Order name: Urinalysis w/ reflexes EDMS 08/18 10:41 Order name: Basic Metabolic Panel EDMS 08/18 10:41 Order name: Basic Metabolic Panel EDMS 08/18 10:41 Order name: Basic Metabolic Panel EDMS 08/18 10:41 Order name: Basic Metabolic Panel EDMS 08/18 10:41 Order name: Basic Metabolic Panel EDMS 08/18 10:41 Order name: Basic Metabolic Panel EDMS 08/18 10:41 Order name: CBC with Automated Diff EDMS 08/18 10:41 Order name: CBC with Automated Diff EDMS 08/18 10:41 Order name: CBC with Automated Diff EDMS 08/18 10:41 Order name: CBC with Automated Diff EDMS 08/18 10:41 Order name: CBC with Automated Diff EDMS 08/18 10:41 Order name: CBC with Automated Diff EDMS 08/18 10:41 Order name: Lipid Profile EDMS 08/18 10:41 Order name: Lipid Profile EDMS 08/18 10:41 Order name: Magnesium EDMS 08/18 10:41 Order name: Magnesium EDMS 08/18 10:41 Order name: Magnesium EDMS 08/18 10:41 Order name: Magnesium EDMS 08/18 10:41 Order name: Magnesium EDMS 08/18 10:41 Order name: Magnesium EDMS 08/18 10:41 Order name: Phosphorus EDMS 08/18 10:41 Order name: Phosphorus EDMS 08/18 10:41 Order name: Phosphorus EDMS 08/18 10:41 Order name: Phosphorus EDMS 08/18 10:41 Order name: Phosphorus EDMS 08/18 10:41 Order name: Phosphorus EDMS 08/18 10:41 Order name: Troponin High Sensitivity EDMS 08/18 10:41 Order name: Troponin High Sensitivity EDMS 08/18 10:41 Order name: Troponin High Sensitivity EDMS 08/18 08:18 Order name: XRAY Chest (1 view); Complete Time: 08:58 ms3 08/18 08:18 Order name: EKG; Complete Time: 08:19 ms3 08/18 10:40 Order name: CONS Physician Consult EDMS 08/18 08:18 Order name: Cardiac monitoring; Complete Time: 08:42 ms3 08/18 08:18 Order name: EKG - Nurse/Tech; Complete Time: 08:28 ms3 08/18 08:18 Order name: IV Saline Lock; Complete Time: 08:42 ms3 08/18 08:18 Order name: Labs collected and sent; Complete Time: 08:42 ms3 08/18 08:18 Order name: O2 Per Protocol; Complete Time: 08:42 ms3 08/18 08:18 Order name: O2 Sat Monitoring; Complete Time: 08:42 ms3 EC:06 Rate is 103 beats/min. Rhythm is regular. QRS [place] is Normal. CT interval is normal. ms3 QRS interval is normal. Clinical impression: Sinus tachycardia. Interpreted by me. Reviewed by me. Administered Medications: 08:42 Drug: Aspirin PO Chewable Tablet 324 mg PO once; 81 mg tablets x 4 Route: PO; db 12:25 Follow up: Response: No adverse reaction db Disposition Summary: 08/18/23 10:34 Hospitalization Ordered Notes: Hospitalization Status: Observation ms3 Provider: Bhavesh Burks ms3 Location: Telemetry/MedSurg (observation) ms3 Condition: Stable ms3 Problem: new ms3 Symptoms: are unchanged ms3 Bed/Room Type: Standard ms3 Room Assignment: 420(08/18/23 12:10) bd Diagnosis - Chest pain, unspecified ms3 - Essential (primary) hypertension ms3 - Obesity due to excess calories ms3 Forms: - Medication Reconciliation Form ms3 - SBAR form ms3 - Leadership Thank You Letter ms3 Signatures: Dispatcher [employer] EDCaroline Bean bd Milad Crump, DO ms3 Birgit Griggs RN RN db Corrections: (The following items were deleted from the chart) 12:10 10:34 ms3 bd
--- NOTE | 2023-08-18 10:35 | ER ---
Nurse's Notes [facility] [place] Name: Russel Sotelo Age: 53 yrs Sex: Male : 1970 Arrival Date: 08/18/2023 Time: 08:14 Bed 6 Private MD: Diagnosis: Chest pain, unspecified;Essential (primary) hypertension;Obesity due to excess calories Presentation: 08/18 08:35 Chief complaint: Patient states: MIDDLE CHEST PAIN STARTED YESTERDAY WHILE LYING DOWN db AND HAS BEEN CONSTANT. COMPLAINS OF SOB. Coronavirus screen: Vaccine status: Patient reports receiving the 2nd dose of the covid vaccine. Client denies travel out of the [place] in the last 14 days. At this time, the client does not indicate any symptoms associated with coronavirus-19. Ebola Screen: Patient negative for fever greater than or equal to 101.5 degrees Fahrenheit, and additional compatible Ebola Virus Disease symptoms Patient denies exposure to infectious person. Patient denies travel to an Ebola-affected area in the 21 days before illness onset. No symptoms or risks identified at this time. Initial Sepsis Screen: Does the patient meet any 2 criteria? No. Patient's initial sepsis screen is negative. Does the patient have a suspected source of infection? No. Patient's initial sepsis screen is negative. Risk Assessment: Do you want to hurt yourself or someone else? Patient reports no desire to harm self or others. Onset of symptoms was August 17, 2023. 08:35 Method Of Arrival: Ambulatory db 08:35 Acuity: TRUE 2 db Triage Assessment: 08:59 General: Appears in no apparent distress. uncomfortable, Behavior is calm, cooperative. db Pain: Complains of pain in chest Pain radiates to chest Pain currently is 5 out of 10 on a pain scale. Pain began suddenly. Neuro: Level of Consciousness is awake, alert, obeys commands, Oriented to person, place, time, situation, Speech is normal. Cardiovascular: Reports chest pain, shortness of breath, Capillary refill < 3 seconds Patient's skin is warm and dry. Rhythm is sinus rhythm. Respiratory: Reports shortness of breath Airway is patent Respiratory effort is even, unlabored, Respiratory pattern is regular, symmetrical. GI:. GI: No signs and/or symptoms were reported involving the gastrointestinal system. Abdomen is round distended. : No deficits noted. No signs and/or symptoms were reported regarding the genitourinary system. Derm: No deficits noted. No signs and/or symptoms reported regarding the dermatologic system. Musculoskeletal: No deficits noted. No signs and/or symptoms reported regarding the musculoskeletal system. Historical: - Allergies: 08:59 No Known Allergies; db - PMHx: 08:59 Hypercholesterolemia; Hypertensive disorder; Chronic obstructive lung disease; db Congestive heart failure; Diabetes mellitus; - PSHx: 08:59 hole in intestines repaired; db - Immunization history:: Adult Immunizations unknown. - Social history:: Smoking status: Patient denies any tobacco usage or history of. Screenin:24 [facility] ED Fall Risk Assessment (Adult) History of falling in the last 3 months, db including since admission No falls in past 3 months (0 pts) Score/Fall Risk Level 0 - 2 = Low Risk Oriented to surroundings, Maintained a safe environment. Abuse screen: Denies threats or abuse. Denies injuries from another. Nutritional screening: No deficits noted. Tuberculosis screening: No symptoms or risk factors identified. Assessment: 09:00 Reassessment: Patient appears in no apparent distress at this time. Patient and/or db family updated on plan of care and expected duration. Pain level reassessed. Patient is alert, oriented x 3, equal unlabored respirations, skin warm/dry/pink. SEE TRIAGE ASSESSMENT FOR INITIAL ASSESSMENT. 10:00 Reassessment: Patient appears in no apparent distress at this time. Patient and/or db family updated on plan of care and expected duration. Pain level reassessed. Patient is alert, oriented x 3, equal unlabored respirations, skin warm/dry/pink. Pain: Complains of pain in chest. Pain: Pain does not radiate. Neuro: Level of Consciousness is awake, alert, obeys commands, Oriented to person, place, time, situation. Cardiovascular: Reports chest pain, shortness of breath. 12:22 Reassessment: Patient appears in no apparent distress at this time. Patient and/or db family updated on plan of care and expected duration. Pain level reassessed. Patient is alert, oriented x 3, equal unlabored respirations, skin warm/dry/pink. Patient states feeling better. 12:22 Reassessment: CALLED 4TH FLOOR TO GIVE REPORT. NURSE STATES IS NOT READY FOR REPORT. db Vital Signs: 08:35 BP 160 / 85; Pulse 101; Resp 18; Temp 97.5(TE); Pulse Ox 92% on R/A; Weight 136.53 kg; db Height 5 ft. 9 in. ; Pain 5/10; 10:03 BP 149 / 86; Pulse 93; Resp 18; Pulse Ox 97% on R/A; ld1 12:00 BP 154 / 88; Pulse 95; Resp 18; Pulse Ox 97% on 1 lpm NC; db 08:35 Body Mass Index 44.45 (136.53 kg, 175.26 cm) db 08:35 Pain Scale: Adult db 08:35 PLACED ON 1L NC db ED Course: 08:17 Patient arrived in ED. mg5 08:18 Milad Crump DO is Attending Physician. ms3 08:28 EKG done, by ED staff, reviewed by Milad Crump DO. em1 08:32 XRAY Chest (1 view) In Process Unspecified. EDMS 08:42 Initial lab(s) drawn, by me, sent to lab. Inserted saline lock: 20 gauge in right hand, em1 using aseptic technique. Blood collected. 08:57 Birgit Griggs, RN is Primary Nurse. db 08:59 Triage completed. db 08:59 Arm band placed on Patient placed in an exam room. db 10:34 Bhavesh Burks is Hospitalizing Provider. ms3 12:33 No provider procedures requiring assistance completed. Patient admitted, IV remains in ld1 place. 12:34 Patient maintains SpO2 saturation greater than 95% on room air. ld1 12:34 Patient has correct armband on for positive identification. Placed in gown. Bed in low ld1 position. Call light in reach. Side rails up X2. quality assurance monitor on. Pulse ox on. NIBP on. 12:38 Provided Education on: ADMISSION. db Administered Medications: 08:42 Drug: Aspirin PO Chewable Tablet 324 mg PO once; 81 mg tablets x 4 Route: PO; db 12:25 Follow up: Response: No adverse reaction db Medication: 12:24 VIS not applicable for this client. db Outcome: 10:34 Decision to Hospitalize by Provider. ms3 12:33 Admitted to Med/surg accompanied by tech, via wheelchair, room 420, ld1 12:33 Condition: stable 12:33 Instructed on the need for admit, 12:52 Patient left the ED. iw Signatures: Dispatcher [employer] Arlette Garrido RN RN Jared Ayoub em1 Milad Crump, DO ms3 Teresa Crump RN RN ld1 Birgit Griggs RN RN db Jia Gamino mg5 Corrections: (The following items were deleted from the chart) 12:22 09:00 Reassessment: Patient appears in no apparent distress at this time. Patient db and/or family updated on plan of care and expected duration. Pain level reassessed. Patient is alert, oriented x 3, equal unlabored respirations, skin warm/dry/pink. db 12:23 12:00 BP 154 / 88; Pulse 95bpm; Resp 18bpm; Pulse Ox 97% RA; db db
[2023-08-18] MEDS ORDERED: FUROSEMIDE 40 MG/4 ML VIAL IV ONE ×2 (10:42→19:13)
[2023-08-18] MEDS: INSULIN REGULAR (HUMAN) 100 UNIT/ML SQ SCH ×3 (11:30→20:24)
[2023-08-18 16:24] VITALS: BMI 44.4
--- NOTE | 2023-08-18 16:44 | P.HP ---
Certification for Inpatient Patient admitted to: Inpatient With expected LOS: >2 Midnights Patient will require the following post-hospital care: None Practitioner: I am a practitioner with admitting privileges, knowledge of patient current condition, hospital course, and medical plan of care. Services: Services provided to patient in accordance with Admission requirements found in Title 42 Section 412.3 of the Code of Federal Regulations Patient History Date of Service: 08/18/23 Reason for admission: Chest pain History of Present Illness: Russel Damon is a 53-year-old male with past medical history of hypertension, IDDM, HLD, congestive heart failure presented to the ER with chest pain lasting 2 days causing him to be scared to sleep. He reports being diagnosed with congestive heart failure 1-1/2 to 2 years ago. Associated symptoms of orthopnea and PND, he uses a CPAP at home. EKG shows heart rate 103, regular rhythm, negative for ST elevation troponin 29.2, BNP TSH 2.080, D-dimer 323, chest x-ray reviewed showing lungs are grossly clear, heart is normal in size, no displaced fractures and no acute intrathoracic process suspected. Russel be admitted for congestive heart failure exacerbation being treated with Lasix and monitoring urine output. Allergies No Known Allergies Allergy (Unverified 06/26/18 17:56) Home Medications: Amlodipine [Norvasc*] 10 mg PO DAILY 03/18/19 Atorvastatin Calcium [Lipitor] 40 mg PO BEDTIME 03/18/19 Metformin HCl [Glucophage*] 500 mg PO BID 03/18/19 allopurinoL [Zyloprim*] 300 mg PO DAILY 03/18/19 Dapagliflozin Propanediol [Farxiga] 10 mg PO DAILY 12/09/21 Dulaglutide [Trulicity] 1.5 mg SQ SEECOM 06/13/22 Aspirin [Ecotrin 81 MG] 81 mg PO DAILY #30 06/14/22 Furosemide [Lasix] 20 mg PO DAILY #30 tab 06/14/22 Metoprolol Tartrate [Lopressor*] 25 mg PO BID #60 tab 06/14/22 Potassium Chloride [K-Dur] 10 meq PO DAILY #30 06/14/22 - Past Medical/Surgical History Diabetic: Yes -: Hypertension -: Type 2 diabetes -: Dyslipidemia -: HIgh cholestrol - Family History Mother -: Heart disease, Hypertension, Diabetes, Kidney disease Notes: mother on dialysis - Social History Smoking Status: Never smoker Alcohol use: Yes CD- Drugs: No Caffeine use: Yes Place of Residence: Home Review of Systems General: Unremarkable Eyes: Unremarkable ENT: Unremarkable Respiratory: Cough, Shortness of Breath Cardiovascular: Chest Pain, Palpitations, Orthopnea, Paroxysmal Noc. Dyspnea, Light Headedness Gastrointestinal: Unremarkable Genitourinary: Unremarkable Musculoskeletal: Unremarkable Integumentary: Unremarkable Physical Examination - Vital Signs Temperature: 97.4 F Blood Pressure: 157/77 Pulse: 84 Respirations: 15 Pulse Ox (%): 95 - Physical Exam General: Alert, In no apparent distress, Oriented x3 HEENT: Atraumatic, Normocephalic, PERRLA Neck: Supple, 2+ carotid pulse no bruit, JVD not distended Respiratory: Clear to auscultation bilaterally, Diminished, Crackles/rales Cardiovascular: Normal pulses, Regular rate/rhythm, Normal S1 S2, Edema (BLE) Capillary refill: <2 Seconds Gastrointestinal: Normal bowel sounds, Hypoactive, Distended (obese) Musculoskeletal: No clubbing, No swelling, No contractures Integumentary: No rashes, No breakdown, No significant lesion Neurological: Normal speech, Normal strength at 5/5 x4 extr, Normal tone - Studies Laboratory Data (last 24 hrs) 08/18/23 08/18/23 08:39 08:39 WBC 9.50 Hgb 13.2 L Hct 43.0 Plt Count 242 Sodium 135 L Potassium 3.5 BUN 13 Creatinine 1.25 Glucose 380 H Assessment and Plan - Plan Assessment and plan # Acute on Chronic Congestive Heart Failure Exacerbation Russel presents with symptoms of shortness of breath, dyspnea on exertion, and orthopnea. On exam, Russel demonstrates pulmonary crackles, bilateral lower extremity edema. Russel weighed 136.5KG on admission. At this time, will admit for diuresis and medical optimization. - Consult Cardiology - recommendations appreciated - Ordered transthoracic echocardiogram - Diuresis with 40 mg lasix IV for today, Potassium 20 meq - Hold home diuresis schedule - Daily weights - Strict I/O - Cardiac diet, 2 L fluid restriction, 2 g Na restriction # IDDM -Accucheck with SSI -no concentrated sweets #HTN #HLD -restart home medications -monitor BP Q4H Morbid obesity BMI 44.4kg/m related to increased calorie intake -flatwork tier consult -supportive care #Obstructive sleep apnea -CPAP at home, will continue Full code DVT ppx: lovenox LOS 2-3 days Discharge Plan: Home Plan to discharge in: 48 Hours - Advance Directives Does patient have a Living Will: No Does patient have a Durable POA for Healthcare: No Time Spent Managing Pts Care (In Minutes): 55
[2023-08-18] MEDS: HEPARIN 5000 UNIT/ML 1 ML VIAL SQ SCH (16:56)
[2023-08-18] MEDS ORDERED: INFLUENZA VACCINE (for 6+ mo) 0.5 ML DOSE IMVAC ONE (17:00)
[2023-08-18 17:54] LABS: Specific Gravity 1.012 (1.005-1.030); Urine Bilirubin NEGATIVE (Negative); Urine Blood Negative (Negative); Urine Clarity Clear (Clear); Urine Color Colorless (Yellow); Urine Glucose 3+ (Negative); Urine Protein NEGATIVE (Negative); Urine Urobilinogen Normal (Normal); Urine pH 5.5 (5.0-7.0)
[2023-08-18] MEDS ORDERED: POTASSIUM CL SA 10 MEQ TAB PO ONE (19:14)
--- NOTE | 2023-08-18 20:28 | CON ---
Date of Consultation: 08/18/2023 Reason For Consultation: CHF exacerbation. History Of Present Illness: 53-year-old male with past medical history of hypertension, diabetes, dy slipidemia, presented with shortness of breath and mild chest discomfort and lower extremity edema. No orthopnea. No nausea, vomiting, or diarrhea. No abdominal pain. No dysuria, polyuria, and urina ry urgency. No other symptoms. Feels okay at the present time. No active pain. Past Medical History: As outlined above in the HPI. Medications: Refer to reconciliation sheet for detailed list. Allergies: NO KNOWN DRUG ALLERGIES. Family History: No premature coronary artery disease or cancer. Social History: Does not smoke or drink. Does not use any drugs. Review of Systems: All systems reviewed and they were negative except what mentioned in HPI. Physical Examination: Vital Signs: Reviewed. Head and Neck: Pupils are equal, reactive to light. Intact eye movements. No significant lymphaden opathy. Neck is supple. Thyroid is not enlarged. Lungs: Decreased breathing sounds bilaterally. No accessory muscle use or muscle retraction. Heart: Regular rate and rhythm. No extra sounds. Abdomen: Soft, nontender. Bowel sounds positive. No organomegaly. No masses or hernia. No rigidi ty or rebound. Extremities: Trace edema bilaterally. No clubbing or cyanosis. Intact pulses. Skin: No rash. No nodule. Neurologic: Alert, awake, oriented x3. No acute focal deficits appreciated. Investigations: BUN 13, creatinine 1.25, and hemoglobin is 13.2. Assessment And Recommendations: 1.Shortness of breath. Possible congestive heart failure. He has some lower extremity edema. Obta in an echocardiogram, trend cardiac enzymes, and we will re-dose Lasix if necessary tomorrow. 2.Chest discomfort. D-dimer was negative. Trend cardiac enzymes as above and obtain an echo in the morning. 3.Hypertension. Blood pressure is elevated. To resume home medications. SR/MODL Voice ID: [id number] Report ID: [id number]
[2023-08-19] MEDS: HEPARIN 5000 UNIT/ML 1 ML VIAL SQ SCH ×2 (03:16→09:10)
[2023-08-19 06:38] LABS: Absolute Lymphocytes (CBC) 1.5 K/uL (0.7-4.9); Hematocrit 44.9 % (39.6-49.0); Lymphocytes % 15.8 % (15.3-44.8); MCV 75.9 fL (80-100); MPV 8.7 fL (7.6-11.3); Platelets 250 thou/uL (152-406); RBC Red Blood Cell Count 5.92 M/uL (4.33-5.43)
[2023-08-19 07:01] LABS: Magnesium 2.2 mg/dL (1.6-2.4); Phosphorus 3.1 mg/dL (2.5-4.9); Potassium 3.7 mEq/L (3.5-5.1)
[2023-08-19 08:33] LABS: White Blood Cell Scan OK (OK)
[2023-08-19 08:34] LABS: Anisocytosis 1+; Blood Morphology Comment NOTED (NOT SEEN); Platelet Estimate ADEQ
[2023-08-19] MEDS: INSULIN REGULAR (HUMAN) 100 UNIT/ML SQ SCH (09:11)
[2023-08-19 09:13] VITALS: BP 140/84; TEMP 97.6
[2023-08-19] MEDS ORDERED: POTASSIUM CL SA 10 MEQ TAB PO ONE (09:51)
[2023-08-19 10:26] VITALS: O2SAT 96
--- NOTE | 2023-08-19 10:38 | P.DS ---
Admission Date: 08/18/23 Discharge Date: 08/19/23 Disposition: ROUTINE DISCHARGE Discharge Condition: FAIR Reason for Admission: Chest pain - Problems (1) Acute on chronic diastolic CHF (congestive heart failure) Current Visit: Yes Status: Acute (2) Chest pain Current Visit: No Status: Acute (3) Obesity Current Visit: No Status: Acute Brief History of Present Illness: Russel Damon is a 53-year-old male with past medical history of hypertension, IDDM, HLD, congestive heart failure presented to the ER with chest pain lasting 2 days causing him to be scared to sleep. He reports being diagnosed with congestive heart failure 1-2 to 2 years ago. Associated symptoms of orthopnea and PND, he uses a CPAP at home. EKG shows heart rate 103, regular rhythm, negative for ST elevation troponin 29.2, BNP TSH 2.080, D-dimer 323, chest x-ray reviewed showing lungs are grossly clear, heart is normal in size, no displaced fractures and no acute intrathoracic process suspected. Patient was admitted for congestive heart failure exacerbation. Hospital Course: Patient hospitalized and treated with IV Lasix. His respiratory condition rapidly improved with treatment. Patient feels he is at baseline today. He is ambulatory, not needing oxygen and tolerating diet. Troponin trended negative and ACS ruled out. Patient was seen in consultation by cardiology recommended medical management. Echocardiogram done and the result is pending to be followed as outpatient. Patient was given extra dose of Lasix for the next 1 week then he can continue his maintenance dose of 20 mg daily. Noted patient has microcytosis. Given his history of GI bleed need to follow-up with GI as outpatient for further evaluation. Vital Signs/Physical Exam: Temp Pulse Resp BP Pulse Ox 97.6 F 78 16 140/84 98 08/19/23 08:00 08/19/23 08:00 08/19/23 08:00 08/19/23 08:00 08/19/23 08:00 General: Alert, In no apparent distress, Oriented x3 HEENT: Mucous membr. moist/pink Neck: JVD not distended Respiratory: Clear to auscultation bilaterally, Normal air movement Cardiovascular: No edema, Regular rate/rhythm, Normal S1 S2, No murmurs Gastrointestinal: Normal bowel sounds, Soft and benign, Non-distended, No tenderness Musculoskeletal: No swelling, No tenderness Integumentary: No rashes, No cyanosis Neurological: Normal strength at 5/5 x4 extr Laboratory Data at Discharge: WBC 9.70 thou/uL (4.3-10.9) 08/19/23 05:57 Hgb 13.7 g/dL (13.6-17.9) 08/19/23 05:57 Hct 44.9 % (39.6-49.0) 08/19/23 05:57 Plt Count 250 thou/uL (152-406) 08/19/23 05:57 Sodium 135 mEq/L (136-145) L 08/19/23 05:57 Potassium 3.7 mEq/L (3.5-5.1) 08/19/23 05:57 BUN 16 mg/dL (7-18) 08/19/23 05:57 Creatinine 1.27 mg/dL (0.70-1.30) 08/19/23 05:57 Glucose 251 mg/dL (74-106) H 08/19/23 05:57 Phosphorus 3.1 mg/dL (2.5-4.9) 08/19/23 05:57 Magnesium 2.2 mg/dL (1.6-2.4) 08/19/23 05:57 Triglycerides 272 mg/dL (<150) H 08/19/23 05:57 Cholesterol 185 mg/dL (<200) 08/19/23 05:57 HDL Cholesterol 39 mg/dL (40-60) L 08/19/23 05:57 Cholesterol/HDL Ratio 4.74 08/19/23 05:57 Home Medications: Amlodipine [Norvasc*] 10 mg PO DAILY 03/18/19 Atorvastatin Calcium [Lipitor] 40 mg PO BEDTIME 03/18/19 Metformin HCl [Glucophage*] 500 mg PO BID 03/18/19 allopurinoL [Zyloprim*] 300 mg PO DAILY 03/18/19 Dapagliflozin Propanediol [Farxiga] 10 mg PO DAILY 12/09/21 Dulaglutide [Trulicity] 1.5 mg SQ SEECOM 06/13/22 Aspirin [Ecotrin 81 MG] 81 mg PO DAILY #30 06/14/22 Metoprolol Tartrate [Lopressor*] 25 mg PO BID #60 tab 06/14/22 Potassium Chloride [K-Dur] 10 meq PO DAILY #30 06/14/22 Furosemide [Lasix*] 20 mg PO DAILY #30 tab 08/19/23 New Medications: Furosemide [Lasix*] 20 mg PO DAILY #30 tab Diet: ADA Activity: Ad renee Followup: LEIGHANN LAWTON [Primary Care Provider] - 1-2 Weeks Tae Butler MD [ACTIVE - CAN ADMIT] - 1-2 Weeks Time spent managing pt's care (in minutes): 33
--- NOTE | 2023-08-19 17:01 | EKG ---
Test Date: 2023-08-18 Test Time: 08:24:20 Sales And Marketing Vice President: JENY MEASUREMENT RESULTS: Intervals: Rate: 103 MN: 142 QRSD: 82 QT: 324 QTc: 424 [place]: P: 51 MN: 142 QRS: -14 T: 13 INTERPRETIVE STATEMENTS: Sinus tachycardia Nonspecific T wave abnormality Abnormal ECG Compared to ECG 11/10/2022 17:12:15 T-wave abnormality now present Sinus rhythm no longer present Electronically Signed On 08-19-23 16:57:29 CDT by Tae Butler
--- NOTE | 2023-08-19 22:02 | PN ---
Date of Progress Note: 08/19/2023 Subjective: Seen by bedside. No symptoms today. Review of Systems: No chest pain, shortness of breath, orthopnea, or cough. No nausea, vomiting, or diarrhea. All othe r systems reviewed are negative. Physical Examination: Vital Signs: Reviewed. Head and Neck: Pupils are equal, reactive to light. Intact eye movement. No JVD. No cervical lymp hadenopathy. Neck is supple. Thyroid is not enlarged. Lungs: Clear to auscultation bilaterally. No rhonchi, wheezing, or crackles. No accessory muscle u se. Heart: Regular rate and rhythm. No extra sounds. Abdomen: Soft, nontender. Bowel sounds positive. No organomegaly. No masses or hernia. No rigidi ty or rebound. Extremities: No edema, clubbing, or cyanosis. Intact pulses. Skin: No rashes. Neurologic: Alert, awake, oriented x3. No acute focal deficits appreciated. Investigations: Labs were reviewed. Assessment/recommendation: 1.Acute on chronic diastolic heart failure exacerbation, mild. Responded well to Lasix. Put him on low-dose Lasix 1 mg daily and he can be released to follow up as an outpatient. 2.Hypertension. Blood pressure is controlled. Cardiology will sign off. SR/MODL Voice ID: [id number] Report ID: [id number]
--- NOTE | 2023-08-20 08:10 | ECHO ---
HEIGHT: 5 ft 9 in WEIGHT: 301 lb 0 oz DATE OF STUDY: 08/19/[address]: Tae Butler 2-DIMENSIONAL: YES M.MODE: YES DOPPLER: YES COLOR FLOW: YES TDS: PORTABLE: YES DEFINITY: BUBBLE STUDY: DIAGNOSIS: CONGESTIVE HEART FAILURE CARDIAC HISTORY: CATHERIZATION: SURGERY: PROSTHETIC VALVE: PACEMAKER: MEASUREMENTS (cm) DIASTOLIC (NORMALS) SYSTOLIC (NORMALS) IVSd 0.9 (0.6-1.2) LA Diam 3.6 (1.9-4.0) LVEF 58% LVIDd 5.3 (3.5-5.7) LVIDs 3.6 (2.0-3.5) %FS 31% LVPWd 1.2 (0.6-1.2) Ao Diam 2.7 (2.0-3.7) 2 DIMENSIONAL ASSESSMENT: RIGHT ATRIUM: NORMAL LEFT ATRIUM: NORMAL RIGHT VENTRICLE: NORMAL LEFT VENTRICLE: NORMAL TRICUSPID VALVE: NORMAL MITRAL VALVE: LEFT VENTRICULAR HYPERTROPHY PULMONIC VALVE: NORMAL AORTIC VALVE: NORMAL PERICARDIAL EFFUSION: NONE AORTIC ROOT: NORMAL LEFT VENTRICULAR WALL MOTION: NORMAL DOPPLER/COLOR FLOW: MILD MITRAL REGURGITATION COMMENTS: 1. NORMAL LEFT VENTRICULAR EJECTION FRACTION 55-60% 2. NORMAL WALL MOTION 3. GRADE I DIASTOLIC DYSFUNCTION 4. MILD MITRAL REGURGITATION TECHNOLOGIST: JEANIE VELASQUEZ
== END 2023-08-19 11:20 | disposition home or self-care (01) ==
LOC: ER 08:14 → ERHOLD 10:31 → INTOOBSV 10:31 → 4TH 12:21
PROVIDERS: ADMIT Internal Medicine; ATTEND Internal Medicine
DX: I50.33 Acute on chronic diastolic (congestive) heart failure (principal); R07.9 Chest pain, unspecified; E66.01 Morbid (severe) obesity due to excess calories; I10 Essential (primary) hypertension; E11.8 Type 2 diabetes mellitus with unspecified complications; E78.5 Hyperlipidemia, unspecified; I50.9 Heart failure, unspecified; G47.33 Obstructive sleep apnea (adult) (pediatric); R06.02 Shortness of breath; D50.9 Iron deficiency anemia, unspecified; Z68.41 Body mass index [BMI] 40.0-44.9, adult; Z71.3 Dietary counseling and surveillance; Z79.4 Long term (current) use of insulin
CPT/HCPCS: 36415; 71045; 80048; 80061; 81003; 82947; 83735; 83880; 84100; 84443; 84484; 85025; 85379; 93005; 93306; 94760; 99285; G0378; J1644; J1815; J1940

== ENCOUNTER 2023-09-14 21:06 | Emergency (ER) | payer BC ==
--- OUTSIDE RECORDS SUMMARY | 2023-09-14 21:20 | XMS REPORT | Continuity of Care Document ---
:1970 Author Organization [facility] t Address [address] [facility] [address] [place] [address] Care Team Providers Name Role Phone Pcp, Patient Does Not Have A Primary Care Physician +[id number] Jan Rodriges Attending Clinician Unavailable Amairani Steward Attending Clinician Unavailable Ember Mena MD Attending Clinician EMBER MENA Attending Clinician Unavailable EMBER MENA Attending Clinician Unavailable [facility] Sleep Lab Attending Clinician Unavailable Doctor Unassigned, [place] Attending Clinician Unavailable Reina Velazquez LVN Attending Clinician CHIRAG LEE Attending Clinician Unavailable Jay Hays Attending Clinician Chirag Lee DO Attending Clinician Zenaida, General Cardiology Attending Clinician Unavailable , [facility] Sleep Lab Bed Attending Clinician Unavailable Only, Adc Test Attending Clinician Unavailable Steve Grande MD [...] Branch 40.0-49.9 40.0-49.9 Hypoxia Hypoxia Disease Active 2020- Univers 9-12 ity of 00:00: [place] 00 Medical Branch Morbid Morbid Disease Active 2020-0 Univers obesity obesity 9-12 [place] of with body [place] mass index mass index 00 [place] dical of of Branch 40.0-49.9 40.0-49.9 Allergies, Adverse Reactions, Alerts Allergy Allergy Status Severity Reaction(s) Onset Inactive Treating Comm ents Source Name Type Date Date Clinician NO KNOWN Drug Active Univers ALLERGIE Class ity of S [facility] [place] [facility] Social History Social Habit Start Date Stop Date Quantity Comments Source History SDOH Social Unive rsity of Connections Get [place] [facility] Together Branch History SDOH Social Unive rsity of Connections Anabaptism [place] [facility] History SDOH Social Unive rsity of Connections [place] [facility] History SDOH Social Unive rsity of Connections [place] [facility] Gender identity [facility] [place] [facility] Sexual orientation [facility] [place] [facility] Alcohol intake 2023-07-22 2023-07-22 Ex-drinker [...] University o f Housing Homeless 00:00:00 00:00:00 [place] Me hughes Last Year Branch Exposure to 2023-03-06 2023-03-16 Not sure [facility] SARS-CoV-2 (event) 00:00:00 15:42:00 [facility] [place] [facility] Tobacco use and 2023-03-16 2023-03-16 User of Universit y of exposure 00:00:00 00:00:00 smokeless [facility] tobacco Branch Education 2023-03-16 2023-03-16 21 University of 00:00:00 00:00:00 [place] [facility] History SDIN 2020-07-28 2020-07-28 99 [place] o f Alcohol Std Drinks 00:00:00 00:00:00 [place] [facility] History [facility] 2020-07-28 2020-07-28 99 [place] o f Alcohol Binge 00:00:00 00:00:00 [place] [facility] Sex [birth year] At [birth year] Universit y of 00:00:00 00:00:00 [facility] [place] [facility] Smoking Status Start Date Stop Date Source Never smoked tobacco [facility] Medications Ordered Filled Start Stop Current Ordering Indication Dosage Frequency Signature Comments Components Source Medication Medication Date Date Medication? Clinician (SIG) Name Name pneumoc Yes .5mL 0.5 mL, Univers 20-devorah 5-05 Intramuscu ity of conj-dip 17:01: [facility], [place] cr(PF) 57 ONCE-PRIOR Medical (PREVNAR 20 TO Branch (PF)) DISCHARGE, injection 1 dose, 0.5 mL Starting on Wed03/19/23 at 1201, Until Discontinu ed, Routine, Give vaccine prior to discharge metformin Yes 1000mg Take 2 Univ ers ER 500 mg 5-05 tablets by ity of 24 hr 15:46: mouth in [place] tablet 27 the Medical morning Branch and 2 tablets in the evening. atorvastati Yes 40mg Take 1 Univ ers n 40 mg 5-05 tablet by ity of tablet 15:46: mouth at [place] [address] bedtime. Medical Branch allopurinoL Yes 300mg Take 3 Uni vers 100 mg 5-05 tablets by ity of tablet 15:46: mouth in [place] [address] the Medical morning. Branch losartan 25 2023-0 Yes 25mg Take 1 Univ ers mg tablet 5-05 tablet by ity o f 15:46: mouth in [place] [address] the Medical morning. Branch metformin 2023-0 Yes 1000mg Take 2 Univ ers ER 500 mg 5-05 tablets by ity of 24 hr 15:46: mouth in [place] tablet 27 the Medical morning Branch and 2 tablets in the evening. atorvastati 2023-0 Yes 40mg Take 1 Univ ers n 40 mg 5-05 tablet by ity of tablet 15:46: mouth at [place] [address] bedtime. Medical Branch allopurinoL 2023-0 Yes 300mg Take 3 Uni vers 100 mg 5-05 tablets by ity of tablet 15:46: mouth in [place] [address] the Medical morning. Branch losartan 25 2023-0 Yes 25mg Take 1 Univ ers mg tablet 5-05 tablet by ity o f 15:46: mouth in [place] [address] the Medical morning. Branch metformin 2023-0 Yes 1000mg Take 2 Univ ers ER 500 mg 5-05 tablets by ity of 24 hr 15:46: mouth in [place] tablet 27 the Medical morning Branch and 2 tablets in the evening. atorvastati 2023-0 Yes 40mg Take 1 Univ ers n 40 mg 5-05 tablet by ity of tablet 15:46: mouth at [place] [address] bedtime. Medical Branch allopurinoL 2023-0 Yes 300mg Take 3 Uni vers 100 mg 5-05 tablets by ity of tablet 15:46: mouth in [place] [address] the Medical morning. Branch losartan 25 2023-0 Yes 25mg Take 1 Univ ers mg tablet 5-05 tablet by ity o f 15:46: mouth in [place] [address] the Medical morning. Branch metformin 2023-0 Yes 1000mg Take 2 Univ ers ER 500 mg 5-05 tablets by ity of 24 hr 15:46: mouth in [place] tablet the Medical morning Branch and 2 tablets in the evening. atorvastati 2023-0 Yes 40mg Take 1 Univ ers n 40 mg 5-05 tablet by ity of tablet 15:46: mouth at [place] [address] bedtime. Medical Branch allopurinoL 2023-0 Yes 300mg Take 3 Uni vers 100 mg 5-05 tablets by ity of tablet 15:46: mouth in [place] [address] the Medical morning. Branch losartan 25 2023-0 Yes 25mg Take 1 Univ ers mg tablet 5-05 tablet by ity o f 15:46: mouth in [place] [address] the Medical morning. Branch metformin 2023-0 Yes 1000mg Take 2 Univ ers ER 500 mg 5-05 tablets by ity of 24 hr 15:46: mouth in [place] tablet 27 the Medical morning Branch and 2 tablets in the evening. atorvastati 2023-0 Yes 40mg Take 1 Univ ers n 40 mg 5-05 tablet by ity of tablet 15:46: mouth at [place] [address] bedtime. Medical Branch allopurinoL 2023-0 Yes 300mg Take 3 Uni vers 100 mg 5-05 tablets by ity of tablet 15:46: mouth in [place] [address] the Medical morning. Branch losartan 25 2023-0 Yes 25mg Take 1 Univ ers mg tablet 5-05 tablet by ity o f 15:46: mouth in [place] [address] the Medical morning. Branch metformin 2023-0 Yes 1000mg Take 2 Univ ers ER 500 mg 5-05 tablets by ity of 24 hr 15:46: mouth in [place] tablet the Medical morning Branch and 2 tablets in the evening. atorvastati 2023-0 Yes 40mg Take 1 Univ ers n 40 mg 5-05 tablet by ity of tablet 15:46: mouth at [place] [address] bedtime. Medical Branch allopurinoL 2023-0 Yes 300mg Take 3 Uni vers 100 mg 5-05 tablets by ity of tablet 15:46: mouth in [place] [address] the Medical morning. Branch losartan 25 2023-0 Yes 25mg Take 1 Univ ers mg tablet 5-05 tablet by ity o f 15:46: mouth in [place] [address] the Medical morning. Branch metformin 2023-0 Yes 1000mg Take 2 Univ ers ER 500 mg 5-05 tablets by ity of 24 hr 15:46: mouth in [place] tablet the Medical morning Branch and 2 tablets in the evening. atorvastati 2023-0 Yes 40mg Take 1 Univ ers n 40 mg 5-05 tablet by ity of tablet 15:46: mouth at [place] [address] bedtime. Medical Branch allopurinoL 2023-0 Yes 300mg Take 3 Uni vers 100 mg 5-05 tablets by ity of tablet 15:46: mouth in [place] [address] the Medical morning. Branch losartan 25 2023-0 Yes 25mg Take 1 Univ ers mg tablet 5-05 tablet by ity o f 15:46: mouth in [place] [address] the Medical morning. Branch metformin 2023-0 Yes 1000mg Take 2 Univ ers ER 500 mg 5-05 tablets by ity of 24 hr 15:46: mouth in [place] tablet 27 the Medical morning Branch and 2 tablets in the evening. atorvastati 2023-0 Yes 40mg Take 1 Univ ers n 40 mg 5-05 tablet by ity of tablet 15:46: mouth at [place] [address] bedtime. Medical Branch allopurinoL 2023-0 Yes 300mg Take 3 Uni vers 100 mg 5-05 tablets by ity of tablet 15:46: mouth in [place] [address] the Medical morning. Branch losartan 25 2023-0 Yes 25mg Take 1 Univ ers mg tablet 5-05 tablet by ity o f 15:46: mouth in [place] [address] the Medical morning. Branch metformin 2023-0 Yes 1000mg Take 2 Univ ers ER 500 mg 5-05 tablets by ity of 24 hr 15:46: mouth in [place] tablet the Medical morning Branch and 2 tablets in the evening. atorvastati 2023-0 Yes 40mg Take 1 Univ ers n 40 mg 5-05 tablet by ity of tablet 15:46: mouth at [place] [address] bedtime. Medical Branch allopurinoL 2023-0 Yes 300mg Take 3 Uni vers 100 mg 5-05 tablets by ity of tablet 15:46: mouth in [place] [address] the Medical morning. Branch losartan 25 2023-0 Yes 25mg Take 1 Univ ers mg tablet 5-05 tablet by ity o f 15:46: mouth in [place] [address] the Medical morning. Branch metformin 2023-0 Yes 1000mg Take 2 Univ ers ER 500 mg 5-05 tablets by ity of 24 hr 15:46: mouth in [place] tablet the Medical morning Branch and 2 tablets in the evening. atorvastati 2023-0 Yes 40mg Take 1 Univ ers n 40 mg 5-05 tablet by ity of tablet 15:46: mouth at [place] [address] bedtime. Medical Branch allopurinoL 2023-0 Yes 300mg Take 3 Uni vers 100 mg 5-05 tablets by ity of tablet 15:46: mouth in [place] [address] the Medical morning. Branch losartan 25 2023-0 Yes 25mg Take 1 Univ ers mg tablet 5-05 tablet by ity o f 15:46: mouth in [place] [address] the Medical morning. Branch metformin 2023-0 Yes 1000mg Take 2 Univ ers ER 500 mg 5-05 tablets by ity of 24 hr 15:46: mouth in [place] tablet 27 the Medical morning Branch and 2 tablets in the evening. atorvastati 2023-0 Yes 40mg Take 1 Univ ers n 40 mg 5-05 tablet by ity of tablet 15:46: mouth at [place] [address] bedtime. Medical Branch allopurinoL 2023-0 Yes 300mg Take 3 Uni vers 100 mg 5-05 tablets by ity of tablet 15:46: mouth in [place] [address] the Medical morning. Branch losartan 25 2023-0 Yes 25mg Take 1 Univ ers mg tablet 5-05 tablet by ity o f 15:46: mouth in [place] [address] the Medical morning. Branch metformin 2023-0 Yes 1000mg Take 2 Univ ers ER 500 mg 5-05 tablets by ity of 24 hr 15:46: mouth in [place] tablet the Medical morning Branch and 2 tablets in the evening. atorvastati 2023-0 Yes 40mg Take 1 Univ ers n 40 mg 5-05 tablet by ity of tablet 15:46: mouth at [place] [address] bedtime. Medical Branch allopurinoL 2023-0 Yes 300mg Take 3 Uni vers 100 mg 5-05 tablets by ity of tablet 15:46: mouth in [place] [address] the Medical morning. Branch losartan 25 2023-0 Yes 25mg Take 1 Univ ers mg tablet 5-05 tablet by ity o f 15:46: mouth in [place] [address] the Medical morning. Branch metformin 2023-0 Yes 1000mg Take 2 Univ ers ER 500 mg 5-05 tablets by ity of 24 hr 15:46: mouth in [place] tablet the Medical morning Branch and 2 tablets in the evening. atorvastati 2023-0 Yes 40mg Take 1 Univ ers n 40 mg 5-05 tablet by ity of tablet 15:46: mouth at [place] [address] bedtime. Medical Branch allopurinoL 2023-0 Yes 300mg Take 3 Uni vers 100 mg 5-05 tablets by ity of tablet 15:46: mouth in [place] [address] the Medical morning. Branch losartan 25 2023-0 Yes 25mg Take 1 Univ ers mg tablet 5-05 tablet by ity o f 15:46: mouth in [place] [address] the Medical morning. Branch metformin 2023-0 Yes 1000mg Take 2 Univ ers ER 500 mg 5-05 tablets by ity of 24 hr 15:46: mouth in [place] tablet the Medical morning Branch and 2 tablets in the evening. atorvastati 2023-0 Yes 40mg Take 1 Univ ers n 40 mg 5-05 tablet by ity of tablet 15:46: mouth at [place] [address] bedtime. Medical Branch allopurinoL 2022-0 Yes 300mg Take 3 Uni vers 100 mg 5-05 tablets by ity of tablet 15:46: mouth in [place] [address] the Medical morning. Branch losartan 25 2022-0 Yes 25mg Take 1 Univ ers mg tablet 5-05 tablet by ity o f 15:46: mouth in [place] [address] the Medical morning. Branch fenofibrate 0 2022- No 54mg Take 54 mg Univers 54 mg 5-05 05-05 by mouth ity of tablet 12:48: 00:00 daily. [place] 31 :00 Medical Branch glipiZIDE 2022- No 10mg Take 10 mg U nivers 10 mg 5-05 05-05 by mouth ity of tablet 12:48: 00:00 daily. [place] 31 :00 [facility] Branch morpHINE (2 Yes 2mg 2 mg, [...] Routine, Pain (scale 4-6) ibuprofen 2022-0 Yes [id number] 600mg Take 1 Univers 600 mg 5-05 tablet by ity of tablet 00:00: mouth [place] 00 every 6 Medical (six) Branch hours as needed (Severe pain). ibuprofen 2022-0 Yes [id number] 600mg Take 1 Univers 600 mg 5-05 tablet by ity of tablet 00:00: mouth [place] 00 every 6 Medical (six) Branch hours as needed (Severe pain). ibuprofen 2022-0 Yes [id number] 600mg Take 1 Univers 600 mg 5-05 tablet by ity of tablet 00:00: mouth [place] 00 every 6 Medical (six) Branch hours as needed (Severe pain). ibuprofen 2023-0 Yes [id number] 600mg Take 1 Univers 600 mg 5-05 tablet by ity of tablet 00:00: mouth [place] 00 every 6 Medical (six) Branch hours as needed (Severe pain). ibuprofen 2023-0 Yes [id number] 600mg Take 1 Univers 600 mg 5-05 tablet by ity of tablet 00:00: mouth [place] 00 every 6 Medical (six) Branch hours as needed (Severe pain). ibuprofen 2023-0 Yes [id number] 600mg Take 1 Univers 600 mg 5-05 tablet by ity of tablet 00:00: mouth [place] 00 every 6 Medical (six) Branch hours as needed (Severe pain). ibuprofen 2023-0 Yes [id number] 600mg Take 1 Univers 600 mg 5-05 tablet by ity of tablet 00:00: mouth [place] 00 every 6 Medical (six) Branch hours as needed (Severe pain). ibuprofen 2023-0 Yes [id number] 600mg Take 1 Univers 600 mg 5-05 tablet by ity of tablet 00:00: mouth [place] 00 every 6 Medical (six) Branch hours as needed (Severe pain). ibuprofen 2023-0 Yes [id number] 600mg Take 1 Univers 600 mg 5-05 tablet by ity of tablet 00:00: mouth [place] 00 every 6 Medical (six) Branch hours as needed (Severe pain). ibuprofen 2023-0 Yes [id number] 600mg Take 1 Univers 600 mg 5-05 tablet by ity of tablet 00:00: mouth [place] 00 every 6 Medical (six) Branch hours as needed (Severe pain). ibuprofen 2023-0 Yes [id number] 600mg Take 1 Univers 600 mg 5-05 tablet by ity of tablet 00:00: mouth [place] 00 every 6 Medical (six) Branch hours as needed (Severe pain). ibuprofen 2023-0 Yes [id number] 600mg Take 1 Univers 600 mg 5-05 tablet by ity of tablet 00:00: mouth [place] 00 every 6 Medical (six) Branch hours as needed (Severe pain). ibuprofen 2023-0 Yes [id number] 600mg Take 1 Univers 600 mg 5-05 tablet by ity of tablet 00:00: mouth [place] 00 every 6 Medical (six) Branch hours as needed (Severe pain). ibuprofen 2023-0 Yes [id number] 600mg Take 1 Univers 600 mg 5-05 [...] No 2mg 2 mg, Slow Univers mg/mL) 03-1804 IV Push, ity of injection 2 00:45: 00:01 ONCE, 1 [place] mg 00 :00 dose, On Medical Wed03/17/23 Branch at 1945, Routine lactated 2022-2022- No 1000mL at 150 [facility] ers ringers IV 03-18 05-04 mL/hr, ity of infusion 00:00: 14:59 1,000 mL, [place] 1,000 mL 00 :10 IV Medical Infusion, Branch CONTINUOUS , Starting on Wed03/17/23 at 1900, Until Wed03/18/23 at 0959, Routine morpHINE (2 2022- No 4mg 4 mg, Slow Univers mg/mL) 03-17- IV Push, ity of injection 4 23:54: 23:41 Q4HPRN, [place] mg 56 :13 Starting Medical on Wed03/17/23 at 1854, Until Wed03/18/23 at 1841, Routine, Pain (scale 7-10) losartan Yes 25mg 25 mg, Univers (COZAAR) 03-17 Oral, ity of tablet 25 14:00: DAILY, [place] mg 00 First dose Medical on Wed [place] 03/17/23 at 0900, Until Discontinu ed, Routine aspirin 0 Yes 81mg 81 mg, Univers chewable 03-17 Oral, ity of tablet 81 14:00: DAILY, [place] mg 00 First dose Medical on Wed [place] 03/17/23 at 0900, Until Discontinu ed, Routine amLODIPine 0 Yes 10mg 10 mg, Unive rs (NORVASC) 03-17 Oral, ity of tablet 10 14:00: DAILY, [place] mg 00 First dose Medical on Wed [place] 03/17/23 at 0900, Until Discontinu ed, Routine [...] it y of nebulizer 01:00: , TID, [place] solution 00 First dose Medic al 0.63 mg on Wed03/16/23 at 2000, Until Discontinu ed, Routine lactated 2022- No 1000mL at 125 [facility] ers ringers IV 03-17 05-03 mL/hr, ity of infusion 00:45: 23:53 1,000 mL, [place] 1,000 mL 00 :44 IV Medical Infusion, Branch CONTINUOUS , Starting on Wed03/16/23 at 1945, Until Wed03/17/23 at 1853, Routine ipratropium Yes .5mg 0.5 mg, Uni vers (ATROVENT) 03-17 Inhalation ity of 0.02 % 00:44: , Q4HPRN, [place] nebulizer 03 Starting Medica l solution on Wed 0.5 mg 03/16/23 at 1944, Until Discontinu ed, Routine, Wheezing, Shortness of Breath ondansetron 0 Yes 4mg 4 mg, Slow Univers (ZOFRAN 03-17 IV Push, ity of (PF)) 00:43: Q6HPRN, [place] injection 4 11 Starting Medi yoni mg on Wed03/16/23 at 1943, Until Discontinu ed, Routine, Nausea and Vomiting (N/V) morpHINE (2 0 2022- No 2mg 2 mg, Slow Univers mg/mL) 03-17 05-03 IV Push, ity of injection 2 00:42: 23:55 Q4HPRN, [place] mg 58 :11 Starting Medical on [facility] 03/16/23 at 1942, Until 03/17/23 at 1855, Routine, Pain (scale 7-10) HYDROcodone 2022- No 1{tbl} 1 tablet, Univers -acetaminop 03-17 05-05 Oral, ity of hen (NORCO 00:42: 00:41 Q6HPRN, [place] 5) 5-325 mg 54 :54 Starting Medi yoni tablet 1 on [facility] tablet 03/16/23 at 1942, Until Steph 03/18/23 at 1941, Routine, Pain (scale 4-6) Sliding Yes Subcutaneo Univ ers Scale 5-02 us, TID ity of Insulin - 22:00: MEALS+HS, [place] Lispro 00 First dose Medical (HumaLOG) on [facility] 03/16/23 at 1700, Until Discontinu ed, Routine enoxaparin Yes 40mg 40 mg, Unive rs (LOVENOX) 03-16 Subcutaneo ity of injection 22:00: us, DAILY, [place] 40 mg 00 First dose Medical on [facility] 03/16/23 at 1700, Until Discontinu ed, Routine glucagon Yes 1mg 1 mg, Univers (GLUCAGEN 03-16 Intramuscu ity of DIAGNOSTIC 19:15: lar, PRN, [place] KIT) 21 Starting Medical injection 1 on [facility] mg 03/16/23 at 1415, Until Discontinu ed, DERICK, Blood Glucose < or = 70 mg/dL and patient is NPO, unable to swallow or has mental changes. dextrose 50 Yes 25mL 25 mL, Univ ers % in water 03-16 Slow IV ity of (D50W) 19:15: Push, PRN, [place] injection 21 Starting Medica l 25 mL on [facility] 03/16/23 at 1415, Until Discontinu ed, DERICK, Blood Glucose < or = 70 mg/dL and patient is NPO, unable to swallow or has mental status changes. acetaminoph Yes 650mg 650 mg, Un sparkle en 03-16 Oral, ity of (TYLENOL) 19:15: Q6HPRN, [place] tablet 650 21 Starting Medic al mg on [facility] Branch 03/16/23 at 1415, Until Discontinu ed, Routine, Pain (scale 1-3) albuterol 2022- No 2.5mg 2.5 mg, Uni vers (PROVENTIL) 03-16 Inhalation i ty of 2.5 mg /3 18:15: 18:08 , ONCE, 1 [place] mL (0.083 00 :00 dose, On Medica l %) [facility] 03/16/23 Branch nebulizer at 1315, solution STAT 2.5 mg iopamidol 2022- No [id number] 94mL 94 mL, U nivers (ISOVUE 03-16 Intravenou ity o f 370-500 mL) 17:05: 17:30 s, ONCE, 1 [place] injection 00 :00 dose, On Medica l 94 mL [facility] 03/16/23 Branch at 1230, Routine NaCl 0.9% 2022- No 500mL at 999 Univ ers (NS) bolus 03-16 mL/hr, 500 it y of infusion 16:00: 18:42 mL, IV [place] 500 mL 00 :00 Infusion, Medical ONCE, 1 Branch dose, On [facility] 03/16/23 at 1100, DERICK TAKE 2021-11 No [...] 00:00: TIMES A DAY 00 TAKE 1 2021-1 No 500 TABLET BY 2-16 MOUTH TWICE [...] 00:00: 00 FUROSEMIDE 2022-0 No 20 MG 8- TABLET 00:00: 00 Dose 2022-0 No Unknown 8 00:00: 00 Dose 2022-0 No Unknown 06-26 00:00: 00 &lt 2022-0 No 20 8-12 00:00: 00 &lt 2022-0 No 25 8- 00:00: 00 &lt 2022-0 No 15 8 00:00: 00 &lt 2022-0 No 8- 00:00: [...] DAY 00 Dose 2022-0 No 1 Unknown 06-18 00:00: 00 Dose 2022-0 No Unknown 06-18 00:00: 00 MUPIROCIN 2022-0 No 2% OINTMENT [...] TAKE 1 2022-0 No 10 TABLET BY 06-18 MOUTH EVERY 00:00: DAY 00 TAKE 1 [...] 7 00:00: 00 &lt 2022-0 No 40 7- 00:00: 00 &lt 2022-0 No 40 7 00:00: 00 TAKE 1 2022-0 No TABLET BY 7- MOUTH TWICE 00:00: A DAY 00 &lt 2022-0 No 7- 00:00: 00 TAKE 1 2022-0 No TABLET BY 7- MOUTH TWICE 00:00: A DAY 00 PLACE 1 MG 2022-0 No 15 BELOW THE - SKIN WEEKLY 00:00: 00 &lt 2022-0 No 20 7- 00:00: 00 Dose 2022-0 No Unknown 06-04 [...] 1 MG 2022-0 No 15 BELOW THE 7- SKIN WEEKLY 00:00: 00 &lt 2022-0 No [...] 1 MG 2022-0 No 15 BELOW THE 7- SKIN WEEKLY 00:00: 00 &lt 2022-0 No [...] % topical 4-11 patch 00:00: 00 Dose 2-0 No Unknown 4-11 [...] 1-10 00:00: 00 Dose 2020- No Unknown 0-27 00:00: 00 Dose 2020- [...] 2020-1 No Unknown 0-27 00:00: 00 Dose 2020- No Unknown 0-27 00:00: 00 Dose 2020-1 No Unknown 0-27 00:00: 00 Dose 2020-1 No Unknown 0-27 00:00: 00 losartan 50 2020-1 No 1mg mg tablet 0-27 00:00: 00 metformin 2020-1 No 1mg ER 500 mg 0-27 24 hr 00:00: tablet,exte 00 nded release Dose 2020- No Unknown 0-27 00:00: 00 Dose 2020- [...] 2021-0 No Unknown 07-16 00:00: 00 amlodipine 1-0 No 1mg 10 mg - tablet 00:00: 00 fenofibrate 1-0 No 1mg 54 mg - tablet 00:00: [...] 2-22 tablet 00:00: 00 AMLODIPINE 2019-1 Yes [id number] TAKE 1 U nivers 10 mg 0-07 TABLET BY ity of tablet 00:00: MOUTH [place] 00 EVERY DAY Medical Branch AMLODIPINE 2020-1 Yes [id number] TAKE 1 U nivers 10 mg 0-07 TABLET BY ity of tablet 00:00: MOUTH [place] 00 EVERY DAY Medical Branch AMLODIPINE 2020-1 Yes [id number] TAKE 1 U nivers 10 mg 0-07 TABLET BY ity of tablet 00:00: MOUTH [place] 00 EVERY DAY Medical Branch AMLODIPINE 2020-1 Yes [id number] TAKE 1 U nivers 10 mg 0-07 TABLET BY ity of tablet 00:00: MOUTH [place] 00 EVERY DAY Medical Branch AMLODIPINE 2020-1 Yes [id number] TAKE 1 U nivers 10 mg 0-07 TABLET BY ity of tablet 00:00: MOUTH [place] 00 EVERY DAY Medical Branch AMLODIPINE 2020-1 Yes [id number] TAKE 1 U nivers 10 mg 0-07 TABLET BY ity of tablet 00:00: MOUTH [place] 00 EVERY DAY Medical Branch AMLODIPINE 2020-1 Yes [id number] TAKE 1 U nivers 10 mg 0-07 TABLET BY ity of tablet 00:00: MOUTH [place] 00 EVERY DAY Medical Branch AMLODIPINE 2020-1 Yes [id number] TAKE 1 U nivers 10 mg 0-07 TABLET BY ity of tablet 00:00: MOUTH [place] 00 EVERY DAY Medical Branch AMLODIPINE 2020-1 Yes [id number] TAKE 1 U nivers 10 mg 0-07 TABLET BY ity of tablet 00:00: MOUTH [place] 00 EVERY DAY Medical Branch AMLODIPINE 2020-1 Yes [id number] TAKE 1 U nivers 10 mg 0-07 TABLET BY ity of tablet 00:00: MOUTH [place] 00 EVERY DAY Medical Branch AMLODIPINE 2020-1 Yes [id number] TAKE 1 U nivers 10 mg 0-07 TABLET BY ity of tablet 00:00: MOUTH [place] 00 EVERY DAY Medical Branch AMLODIPINE 2020-1 Yes [id number] TAKE 1 U nivers 10 mg 0-07 TABLET BY ity of tablet 00:00: MOUTH [place] 00 EVERY DAY Medical Branch AMLODIPINE 2020-1 Yes [id number] TAKE 1 U nivers 10 mg 0-07 TABLET BY ity of tablet 00:00: MOUTH [place] 00 EVERY DAY Medical Branch AMLODIPINE 2020-1 Yes [id number] TAKE 1 U nivers 10 mg 0-07 TABLET BY ity of tablet 00:00: MOUTH [place] 00 EVERY DAY Medical Branch AMLODIPINE 2020-1 Yes [id number] TAKE 1 U nivers 10 mg 0-07 TABLET BY ity of tablet 00:00: MOUTH 00 EVERY DAY Medical Branch AMLODIPINE 2020-1 Yes [id number] TAKE 1 U nivers 10 mg 0-07 TABLET BY ity of tablet 00:00: MOUTH 00 EVERY DAY Medical Branch AMLODIPINE 2020-1 Yes [id number] TAKE 1 U nivers 10 mg 0-07 TABLET BY ity of tablet 00:00: MOUTH 00 EVERY DAY Medical Branch AMLODIPINE 2020-1 Yes [id number] TAKE 1 U nivers 10 mg 0-07 TABLET BY ity of tablet 00:00: MOUTH 00 EVERY DAY Medical Branch AMLODIPINE 2020-1 Yes [id number] TAKE 1 U nivers 10 mg 0-07 TABLET BY ity of tablet 00:00: MOUTH 00 EVERY DAY Medical Branch AMLODIPINE 2020-1 Yes [id number] TAKE 1 U nivers 10 mg 0-07 TABLET BY ity of tablet 00:00: MOUTH 00 EVERY DAY Medical Branch AMLODIPINE 2020-1 Yes [id number] TAKE 1 U nivers 10 mg 0-07 TABLET BY ity of tablet 00:00: MOUTH 00 EVERY DAY Medical Branch AMLODIPINE 2020-1 Yes [id number] TAKE 1 U nivers 10 mg 0-07 TABLET BY ity of tablet 00:00: MOUTH 00 EVERY DAY Medical Branch AMLODIPINE 2020-1 Yes [id number] TAKE 1 U nivers 10 mg 0-07 TABLET BY ity of tablet 00:00: MOUTH 00 EVERY DAY Medical Branch AMLODIPINE 2020-1 Yes [id number] TAKE 1 U nivers 10 mg 0-07 TABLET BY ity of tablet 00:00: MOUTH 00 EVERY DAY Medical Branch AMLODIPINE 2020-1 Yes [id number] TAKE 1 U nivers 10 mg 0-07 TABLET BY ity of tablet 00:00: MOUTH 00 EVERY DAY Medical Branch AMLODIPINE 2020-1 Yes [id number] TAKE 1 U nivers 10 mg 0-07 TABLET BY ity of tablet 00:00: MOUTH 00 EVERY DAY Medical Branch AMLODIPINE 2020-1 Yes [id number] TAKE 1 U nivers 10 mg 0-07 TABLET BY ity of tablet 00:00: MOUTH 00 EVERY DAY [facility] AMLODIPINE 2020-1 Yes [id number] TAKE 1 U nivers 10 mg 0-07 TABLET BY ity of tablet 00:00: MOUTH 00 EVERY DAY [facility] AMLODIPINE 2019- Yes [id number] TAKE 1 U nivers 10 mg 0-07 TABLET BY ity of tablet 00:00: MOUTH [place] 00 EVERY DAY [facility] Branch AMLODIPINE 2019- Yes [id number] TAKE 1 U nivers 10 mg 0-07 TABLET BY ity of tablet 00:00: MOUTH [place] 00 EVERY DAY Medical Branch AMLODIPINE 2019- Yes [id number] TAKE 1 U nivers 10 mg 0-07 [...] by mouth ity of tablet 19:02: daily. [place] [address] Medical Branch atorvastati 2019-11 Yes 40mg Take 40 mg [facility] n 40 mg 0-06 by mouth ity of tablet 19:02: at [place] [address] bedtime. Medical Branch allopurinoL 2019-11 Yes 300mg Take 300 U nivers 100 mg 0-06 mg by ity of tablet 19:02: mouth [place] 10 daily. Medical Branch glipiZIDE 2019-11 Yes 10mg Take 10 mg Un [place] 10 mg 0-06 by mouth ity of tablet 19:02: daily. [address] metformin 2019-11 Yes 500mg Take 500 Uni vers ER 500 mg 0-06 mg by ity of 24 hr 19:02: mouth [place] tablet 10 daily with Medical breakfast. Branch fenofibrate 2019-11 Yes 54mg Take 54 mg [facility] 54 mg 0-06 by mouth ity of tablet 19:02: daily. [place] [address] Medical Branch atorvastati 2019-11 Yes 40mg Take 40 mg [facility] n 40 mg 0-06 by mouth ity of tablet 19:02: at [place] 10 bedtime. Medical Branch allopurinoL 2019-11 Yes 300mg Take 300 U nivers 100 mg 0-06 mg by ity of tablet 19:02: mouth [place] 10 daily. Medical Branch glipiZIDE 2019-11 Yes 10mg Take 10 mg Un spark[place] 10 mg 0-06 by mouth ity of tablet 19:02: daily. [address] metformin 2019-11 Yes 500mg Take 500 Uni vers ER 500 mg 0-06 mg by ity of 24 hr 19:02: mouth [place] tablet 10 daily with Medical breakfast. Branch fenofibrate 2019-11 Yes 54mg Take 54 mg [facility] 54 mg 0-06 by mouth ity of tablet 19:02: daily. [place] [address] Medical Branch atorvastati 2019-11 Yes 40mg Take [...] by mouth ity of tablet 19:02: daily. [address] Branch metformin 2019-11 Yes 500mg Take 500 Uni vers ER 500 mg 0-06 mg by ity of 24 hr 19:02: mouth [place] tablet 10 daily with Medical breakfast. Branch fenofibrate 2019-11 Yes 54mg Take 54 mg [facility] 54 mg 0-06 by mouth ity of tablet 19:02: daily. [place] [address] Medical Branch atorvastati 2019-11 Yes 40mg Take [...] by mouth ity of tablet 19:02: daily. [place] [address] [facility] [place] metformin 2019- Yes 500mg Take 500 Uni vers ER 500 mg 0-06 mg by ity of 24 hr 19:02: mouth [place] tablet 10 daily with Medical breakfast. Branch fenofibrate 2019-11 Yes 54mg Take 54 mg [facility] 54 mg 0-06 by mouth ity of tablet 19:02: daily. [place] [address] [facility] Branch atorvastati 2019-11 Yes 40mg Take [...] by mouth ity of tablet 19:02: daily. [place] [address] [facility] metformin 2019-11 Yes 500mg Take 500 Uni vers ER 500 mg 0-06 mg by ity of 24 hr 19:02: mouth [place] tablet 10 daily with Medical breakfast. Branch fenofibrate 2019-11 Yes 54mg Take 54 mg [facility] 54 mg 0-06 by mouth ity of tablet 19:02: daily. [place] [address] Medical Branch atorvastati 2019-11 Yes 40mg Take [...] by mouth ity of tablet 19:02: daily. [address] metformin 2019-11 Yes 500mg Take 500 Uni vers ER 500 mg 0-06 mg by ity of 24 hr 19:02: mouth [place] tablet 10 daily with Medical breakfast. Branch fenofibrate 2019-11 Yes 54mg Take 54 mg [facility] 54 mg 0-06 by mouth ity of tablet 19:02: daily. [address] Branch atorvastati 2019-11 Yes 40mg Take 40 mg [facility] n 40 mg 0-06 by mouth ity of tablet 19:02: at [place] [address] bedtime. Medical Branch allopurinoL 2019-11 Yes 300mg Take 300 U nivers 100 mg 0-06 mg by ity of tablet 19:02: mouth [place] 10 daily. Medical Branch glipiZIDE 2019-11 Yes 10mg Take 10 mg Un [place] 10 mg 0-06 by mouth ity of tablet 19:02: daily. [address] Branch metformin 2019-11 Yes 500mg Take 500 Uni vers ER 500 mg 0-06 mg by ity of 24 hr 19:02: mouth [place] tablet 10 daily with Medical breakfast. Branch fenofibrate 2019-11 Yes 54mg Take 54 mg [facility] 54 mg 0-06 by mouth ity of tablet 19:02: daily. [address] atorvastati 2019-11 Yes 40mg Take 40 mg [facility] n 40 mg 0-06 by mouth ity of tablet 19:02: at [place] 10 bedtime. Medical [place] allopurinoL 2019- Yes 300mg Take 300 U nivers 100 mg 0-06 mg by ity of tablet 19:02: mouth [place] 10 daily. Medical Branch glipiZIDE 2019-11 Yes 10mg Take 10 mg Un [place] 10 mg 0-06 by mouth ity of tablet 19:02: daily. [address] Branch metformin 2019- Yes 500mg Take 500 Uni vers ER 500 mg 0-06 mg by ity of 24 hr 19:02: mouth [place] tablet 10 daily with Medical breakfast. Branch fenofibrate 2019-11 Yes 54mg Take 54 mg [facility] 54 mg 0-06 by mouth ity of tablet 19:02: daily. [place] [address] Medical Branch atorvastati 2019-11 Yes 40mg Take 40 mg [facility] n 40 mg 0-06 by mouth ity of tablet 19:02: at [place] 10 bedtime. Medical Branch allopurinoL 2019-11 Yes 300mg Take 300 U nivers 100 mg 0-06 mg by ity of tablet 19:02: mouth [place] 10 daily. Medical Branch glipiZIDE 2019-11 Yes 10mg Take 10 mg Un [place] 10 mg 0-06 by mouth ity of tablet 19:02: daily. [address] metformin 2019-11 Yes 500mg Take 500 Uni vers ER 500 mg 0-06 mg by ity of 24 hr 19:02: mouth [place] tablet 10 daily with Medical breakfast. Branch fenofibrate 2019-11 Yes 54mg Take 54 mg [facility] 54 mg 0-06 by mouth ity of tablet 19:02: daily. [address] atorvastati 2019-11 Yes 40mg Take 40 mg [facility] n 40 mg 0-06 by mouth ity of tablet 19:02: at [place] 10 bedtime. Medical Branch allopurinoL 2019-11 Yes 300mg Take 300 U nivers 100 mg 0-06 mg by ity of tablet 19:02: mouth [place] 10 daily. [facility] Branch glipiZIDE 2019-11 Yes 10mg Take 10 mg Un sparkle 10 mg 0-06 by mouth ity of tablet 19:02: daily. [address] metformin 2019-11 Yes 500mg Take 500 Uni vers ER 500 mg 0-06 mg by ity of 24 hr 19:02: mouth [place] tablet 10 daily with Medical breakfast. Branch fenofibrate 2019-11 Yes 54mg Take 54 mg [facility] 54 mg 0-06 by mouth ity of tablet 19:02: daily. [place] [address] Medical Branch atorvastati 2019- Yes 40mg Take [...] by mouth ity of tablet 19:02: daily. [address] Branch metformin 2019-11 Yes 500mg Take 500 Uni vers ER 500 mg 0-06 mg by ity of 24 hr 19:02: mouth [place] tablet 10 daily with Medical breakfast. Branch fenofibrate 2019-11 Yes 54mg Take 54 mg [facility] 54 mg 0-06 by mouth ity of tablet 19:02: daily. [address] atorvastati 2019-11 Yes 40mg Take 40 mg [facility] n 40 mg 0-06 by mouth ity of tablet 19:02: at [place] 10 bedtime. Medical Branch allopurinoL 2019- Yes 300mg Take 300 U nivers 100 mg 0-06 mg by ity of tablet 19:02: mouth [place] 10 daily. Medical Branch glipiZIDE 2019-11 Yes 10mg Take 10 mg Un [place] 10 mg 0-06 by mouth ity of tablet 19:02: daily. [address] metformin 2019-11 Yes 500mg Take 500 Uni vers ER 500 mg 0-06 mg by ity of 24 hr 19:02: mouth [place] tablet 10 daily with Medical breakfast. Branch fenofibrate 2019-11 Yes 54mg Take 54 mg [facility] 54 mg 0-06 by mouth ity of tablet 19:02: daily. [address] atorvastati 2019-11 Yes 40mg Take 40 [...] by mouth ity of tablet 19:02: daily. [address] metformin 2019- Yes 500mg Take 500 Uni vers ER 500 mg 0-06 mg by ity of 24 hr 19:02: mouth [place] tablet 10 daily with Medical breakfast. Branch fenofibrate 2019-11 Yes 54mg Take 54 mg [facility] 54 mg 0-06 by mouth ity of tablet 19:02: daily. [address] Branch atorvastati 2019-11 Yes 40mg Take [...] by mouth ity of tablet 19:02: daily. [address] metformin 2019-11 Yes 500mg Take 500 Uni vers ER 500 mg 0-06 mg by ity of 24 hr 19:02: mouth [place] tablet 10 daily with Medical breakfast. Branch fenofibrate 2019-11 Yes 54mg Take 54 mg [facility] 54 mg 0-06 by mouth ity of tablet 19:02: daily. [address] atorvastati 2019-11 Yes 40mg Take 40 [...] by mouth ity of tablet 19:02: daily. [address] metformin 2019-11 Yes 500mg Take 500 Uni vers ER 500 mg 0-06 mg by ity of 24 hr 19:02: mouth [place] tablet 10 daily with Medical breakfast. Branch fenofibrate 2019-11 Yes 54mg Take 54 mg [facility] 54 mg 0-06 by mouth ity of tablet 19:02: daily. [address] atorvastati 2019-11 Yes 40mg Take 40 [...] by mouth ity of tablet 19:02: daily. [place] [address] Medical Branch metformin 2019-11 Yes 500mg Take 500 Uni vers ER 500 mg 0-06 mg by ity of 24 hr 19:02: mouth [place] tablet 10 daily with Medical breakfast. Branch fenofibrate 2019-11 Yes 54mg Take 54 mg [facility] 54 mg 0-06 by mouth ity of tablet 19:02: daily. [place] [address] Medical Branch atorvastati 2019-11 Yes 40mg Take 40 mg [facility] n 40 mg 0-06 by mouth ity of tablet 19:02: at [place] 10 bedtime. Medical Branch allopurinoL 2019-11 Yes 300mg Take 300 U nivers 100 mg 0-06 mg by ity of tablet 19:02: mouth [place] 10 daily. Medical Branch glipiZIDE 2019-11 Yes 10mg Take 10 mg Un [place] 10 mg 0-06 by mouth ity of tablet 19:02: daily. [address] Branch metformin 2019-11 Yes 500mg Take 500 Uni vers ER 500 mg 0-06 mg by ity of 24 hr 19:02: mouth [place] tablet 10 daily with Medical breakfast. Branch fenofibrate 2019-11 Yes 54mg Take 54 mg [facility] 54 mg 0-06 by mouth ity of tablet 19:02: daily. [address] atorvastati 2019-11 Yes 40mg Take 40 mg [facility] n 40 mg 0-06 by mouth ity of tablet 19:02: at [place] 10 bedtime. Medical Branch allopurinoL 2019-11 Yes 300mg Take 300 U nivers 100 mg 0-06 mg by ity of tablet 19:02: mouth [place] 10 daily. Medical Branch glipiZIDE 2019-11 Yes 10mg Take 10 mg Un spark[place] 10 mg 0-06 by mouth ity of tablet 19:02: daily. [address] metformin 2019-11 Yes 500mg Take 500 Uni vers ER 500 mg 0-06 mg by ity of 24 hr 14:02: mouth [place] tablet 10 daily with Medical breakfast. Branch fenofibrate 2019-11 Yes 54mg Take 54 mg [facility] 54 mg 0-06 by mouth ity of tablet 14:02: daily. [address] atorvastati 2019-11 Yes 40mg Take 40 mg [facility] n 40 mg 0-06 by mouth ity of tablet 14:02: at [place] [address] bedtime. Medical Branch allopurinoL 2019- Yes 300mg Take 300 U nivers 100 mg 0-06 mg by ity of tablet 14:02: mouth [place] 10 daily. Medical Branch glipiZIDE 2019-11 Yes 10mg Take 10 mg Un [place] 10 mg 0-06 by mouth ity of tablet 14:02: daily. [place] [address] Medical Branch metformin 2019-11 Yes 500mg Take 500 Uni vers ER 500 mg 0-06 mg by ity of 24 hr 14:02: mouth [place] tablet 10 daily with Medical breakfast. Branch fenofibrate 2019-11 Yes 54mg Take 54 mg [facility] 54 mg 0-06 by mouth ity of tablet 14:02: daily. [place] [address] Medical Branch atorvastati 2019-11 Yes 40mg Take 40 mg [facility] n 40 mg 0-06 by mouth ity of tablet 14:02: at [place] [address] bedtime. Medical Branch allopurinoL 2019-11 Yes 300mg Take 300 U nivers 100 mg 0-06 mg by ity of tablet 14:02: mouth [place] 10 daily. Medical Branch glipiZIDE 2019-11 Yes 10mg Take 10 mg Un spark[place] 10 mg 0-06 by mouth ity of tablet 14:02: daily. [place] [address] Medical Branch carvediloL 2019-11 Yes [id number] 25mg Take 1 U nivers 25 mg 0-06 tablet by ity of tablet 00:00: mouth 2 [place] (two) Medical times Branch daily with meals. carvediloL 2019-11 Yes [id number] 25mg Take 1 U nivers 25 mg 0-06 tablet by ity of tablet 00:00: mouth 2 [place] (two) Medical times Branch daily with meals. carvediloL 2019-11 Yes [id number] 25mg Take 1 U nivers 25 mg 0-06 tablet by ity of tablet 00:00: mouth 2 [place] (two) Medical times Branch daily with meals. carvediloL 2019-11 Yes [id number] 25mg Take 1 U nivers 25 mg 0-06 tablet by ity of tablet 00:00: mouth 2 [place] (two) Medical times Branch daily with meals. carvediloL 2019-11 Yes [id number] 25mg Take 1 U nivers 25 mg 0-06 tablet by ity of tablet 00:00: mouth 2 [place] (two) Medical times Branch daily with meals. amLODIPine 2019-11 Yes [id number] 10mg Take 1 U nivers 10 mg 0-06 tablet by ity of tablet 00:00: mouth [place] 00 daily. Medical Branch lisinopriL 2019-11 Yes 20mg Take 1 Unive rs (PRINIVIL) 0-06 tablet by ity of 20 mg 00:00: mouth [place] tablet 00 daily. Medical Branch carvediloL 2019-11 Yes [id number] 25mg Take 1 U nivers 25 mg 0-06 tablet by ity of tablet 00:00: mouth 2 [place] 00 (two) Medical times Branch daily with meals. amLODIPine 2019-11 Yes [id number] 10mg Take 1 U nivers 10 mg 0-06 tablet by ity of tablet 00:00: mouth [place] 00 daily. Medical Branch lisinopriL 2019-11 Yes 20mg Take 1 Unive rs (PRINIVIL) 0-06 tablet by ity of 20 mg 00:00: mouth [place] tablet 00 daily. Medical Branch carvediloL 2019-11 Yes [id number] 25mg Take 1 U nivers 25 mg 0-06 tablet by ity of tablet 00:00: mouth 2 [place] 00 (two) Medical times Branch daily with meals. lisinopriL 2019-11 Yes 20mg Take 1 Unive rs (PRINIVIL) 0-06 tablet by ity of 20 mg 00:00: mouth [place] tablet 00 daily. Medical Branch carvediloL 2019-11 Yes [id number] 25mg Take 1 U nivers 25 mg 0-06 tablet by ity of tablet 00:00: mouth 2 [place] (two) Medical times Branch daily with meals. lisinopriL 2019-11 Yes 20mg Take 1 Unive rs (PRINIVIL) 0-06 tablet by ity of 20 mg 00:00: mouth [place] tablet 00 daily. Medical Branch carvediloL 2019-11 Yes [id number] 25mg Take 1 U nivers 25 mg 0-06 tablet by ity of tablet 00:00: mouth 2 [place] 00 (two) Medical times Branch daily with meals. lisinopriL 2019-11 Yes 20mg Take 1 Unive rs (PRINIVIL) 0-06 tablet by ity of 20 mg 00:00: mouth [place] tablet 00 daily. Medical Branch carvediloL 2019-11 Yes [id number] 25mg Take 1 U nivers 25 mg 0-06 tablet by ity of tablet 00:00: mouth 2 [place] 00 (two) Medical times Branch daily with meals. lisinopriL 2019-11 Yes 20mg Take 1 Unive rs (PRINIVIL) 0-06 tablet by ity of 20 mg 00:00: mouth [place] tablet 00 daily. Medical Branch carvediloL 2019-11 Yes [id number] 25mg Take 1 U nivers 25 mg 0-06 tablet by ity of tablet 00:00: mouth 2 [place] (two) Medical times Branch daily with meals. lisinopriL 2019-11 Yes 20mg Take 1 Unive rs (PRINIVIL) 0-06 tablet by ity of 20 mg 00:00: mouth [place] tablet 00 daily. Medical Branch carvediloL 2019-11 Yes [id number] 25mg Take 1 U nivers 25 mg 0-06 tablet by ity of tablet 00:00: mouth 2 [place] 00 (two) Medical times Branch daily with meals. lisinopriL 2019-11 Yes 20mg Take 1 Unive rs (PRINIVIL) 0-06 tablet by ity of 20 mg 00:00: mouth [place] tablet 00 daily. Medical Branch carvediloL 2019-11 Yes [id number] 25mg Take 1 U nivers 25 mg 0-06 tablet by ity of tablet 00:00: mouth 2 [place] (two) Medical times Branch daily with meals. lisinopriL 2019-11 Yes 20mg Take 1 Unive rs (PRINIVIL) 0-06 tablet by ity of 20 mg 00:00: mouth [place] tablet 00 daily. Medical Branch carvediloL 2019-11 Yes [id number] 25mg Take 1 U nivers 25 mg 0-06 tablet by ity of tablet 00:00: mouth 2 [place] 00 (two) Medical times Branch daily with meals. lisinopriL 2019-11 Yes 20mg Take 1 Unive rs (PRINIVIL) 0-06 tablet by ity of 20 mg 00:00: mouth [place] tablet 00 daily. Medical Branch carvediloL 2019-11 Yes [id number] 25mg Take 1 U nivers 25 mg 0-06 tablet by ity of tablet 00:00: mouth 2 [place] 00 (two) Medical times Branch daily with meals. lisinopriL 2019-11 Yes 20mg Take 1 Unive rs (PRINIVIL) 0-06 tablet by ity of 20 mg 00:00: mouth [place] tablet 00 daily. Medical Branch carvediloL 2019-11 Yes [id number] 25mg Take 1 U nivers 25 mg 0-06 tablet by ity of tablet 00:00: mouth 2 [place] 00 (two) Medical times Branch daily with meals. lisinopriL 2019-11 Yes 20mg Take 1 Unive rs (PRINIVIL) 0-06 tablet by ity of 20 mg 00:00: mouth [place] tablet 00 daily. Medical Branch carvediloL 2019-11 Yes [id number] 25mg Take 1 U nivers 25 mg 0-06 tablet by ity of tablet 00:00: mouth 2 [place] 00 (two) Medical times Branch daily with meals. lisinopriL 2019-11 Yes 20mg Take 1 Unive rs (PRINIVIL) 0-06 tablet by ity of 20 mg 00:00: mouth [place] tablet 00 daily. Medical Branch carvediloL 2019-11 Yes [id number] 25mg Take 1 U nivers 25 mg 0-06 tablet by ity of tablet 00:00: mouth 2 [place] (two) Medical times Branch daily with meals. lisinopriL 2019-11 Yes 20mg Take 1 Unive rs (PRINIVIL) 0-06 tablet by ity of 20 mg 00:00: mouth [place] tablet 00 daily. Medical Branch carvediloL 2019-11 Yes [id number] 25mg Take 1 U nivers 25 mg 0-06 tablet by ity of tablet 00:00: mouth 2 [place] 00 (two) Medical times Branch daily with meals. lisinopriL 2019-11 Yes 20mg Take 1 Unive rs (PRINIVIL) 0-06 tablet by ity of 20 mg 00:00: mouth [place] tablet 00 daily. Medical Branch carvediloL 2019-11 Yes [id number] 25mg Take 1 U nivers 25 mg 0-06 tablet by ity of tablet 00:00: mouth 2 [place] 00 (two) Medical times Branch daily with meals. lisinopriL 2019-11 Yes 20mg Take 1 Unive rs (PRINIVIL) 0-06 tablet by ity of 20 mg 00:00: mouth [place] tablet 00 daily. Medical Branch carvediloL 2019-11 Yes [id number] 25mg Take 1 U nivers 25 mg 0-06 tablet by ity of tablet 00:00: mouth 2 [place] 00 (two) Medical times Branch daily with meals. lisinopriL 2019-11 Yes 20mg Take 1 Unive rs (PRINIVIL) 0-06 tablet by ity of 20 mg 00:00: mouth [place] tablet 00 daily. Medical Branch carvediloL 2019-11 Yes [id number] 25mg Take 1 U nivers 25 mg 0-06 tablet by ity of tablet 00:00: mouth 2 [place] 00 (two) Medical times Branch daily with meals. lisinopriL 2019-11 Yes 20mg Take 1 Unive rs (PRINIVIL) 0-06 tablet by ity of 20 mg 00:00: mouth [place] tablet 00 daily. Medical Branch carvediloL 2019-11 Yes [id number] 25mg Take 1 U nivers 25 mg 0-06 tablet by ity of tablet 00:00: mouth 2 (two) Medical times Branch daily with meals. lisinopriL 2019-11 Yes 20mg Take 1 Unive rs (PRINIVIL) 0-06 tablet by ity of 20 mg 00:00: mouth [place] tablet 00 daily. Medical Branch carvediloL 2019-11 Yes [id number] 25mg Take 1 U nivers 25 mg 0-06 tablet by ity of tablet 00:00: mouth 2 (two) Medical times Branch daily with meals. lisinopriL 2019-11 Yes 20mg Take 1 Unive rs (PRINIVIL) 0-06 tablet by ity of 20 mg 00:00: mouth [place] tablet 00 daily. Medical Branch carvediloL 2019-11 Yes [id number] 25mg Take 1 U nivers 25 mg 0-06 tablet by ity of tablet 00:00: mouth 2 (two) Medical times Branch daily with meals. carvediloL 2019-11 Yes [id number] 25mg Take 1 U nivers 25 mg 0-06 tablet by ity of tablet 00:00: mouth 2 (two) Medical times Branch daily with meals. carvediloL 2019-11 Yes [id number] 25mg Take 1 U nivers 25 mg 0-06 tablet by ity of tablet 00:00: mouth 2 (two) Medical times Branch daily with meals. carvediloL 2019-11 Yes [id number] 25mg Take 1 U nivers 25 mg 0-06 tablet by ity of tablet 00:00: mouth 2 [place] 00 (two) Medical times Branch daily with meals. carvediloL 2019-11 Yes [id number] 25mg Take 1 U nivers 25 mg 0-06 tablet by ity of tablet 00:00: mouth (two) Medical times Branch daily with meals. carvediloL 2019-11 Yes [id number] 25mg Take 1 U nivers 25 mg 0-06 tablet by ity of tablet 00:00: mouth (two) Medical times Branch daily with meals. carvediloL 2019-11 Yes [id number] 25mg Take 1 U nivers 25 mg 0-06 tablet by ity of tablet 00:00: mouth (two) Medical times Branch daily with meals. carvediloL 2019-11 Yes [id number] 25mg Take 1 U nivers 25 mg 0-06 tablet by ity of tablet 00:00: mouth [place] (two) Medical times Branch daily with meals. carvediloL 2019-11 Yes [id number] 25mg Take 1 U nivers 25 mg 0-06 tablet by ity of tablet 00:00: mouth [place] (two) Medical times Branch daily with meals. carvediloL 2019-11 Yes [id number] 25mg Take 1 U nivers 25 mg 0-06 tablet by ity of tablet 00:00: mouth [place] (two) Medical times Branch daily with meals. lisinopriL 2019-11- No 20mg Take 1 Univ ers 20 mg 0-06 05-05 tablet by ity of tablet 00:00: 00:00 mouth [place] 00 :00 daily. Medical Branch amLODIPine 2019-11- No [id number] 10mg Take 1 [facility] 10 mg 0-06 10-07 tablet by ity of tablet 00:00: 00:00 mouth [place] 00 :00 daily. Medical Branch amLODIPine 2019-11- No [id number] 10mg Take 1 [facility] 10 mg 0-06 10-07 tablet by ity of tablet 00:00: 00:00 mouth [place] 00 :00 daily. Medical Branch cloNIDine 2020- No .1mg 0.1 mg, Univ ers (CATAPRES) 08-14 09-30 Oral, ity of tablet 0.1 20:30: 20:06 ONCE, 1 [facility] as mg 00 :00 dose, Wed Medical 08/14/20 at Branch 1530, [place] hydralAZINE 2019- [...] [place] 40 [place] :[place] dose, [facility] 08/14/20 at Branch 1415, DERICK furosemide 2019- No [id number] 40mg Take 1 [facility] (LASIX) 40 9-30 10-15 tablet by ity of mg tablet 00:00: 04:59 mouth 2 [place] :[place] (two) Medical times Branch daily for 14 days. furosemide 2019-2019- No [id number] 40mg Take 1 [facility] (LASIX) 40 9-30 10-15 tablet by ity of mg tablet 00:00: 04:59 mouth 2 [place] :[place] (two) Medical times Branch daily for 14 days. furosemide 2019- 2020- No [id number] 40mg Take 1 [facility] (LASIX) 40 9-30 10-15 tablet by ity of mg tablet 00:00: 04:59 mouth 2 [place] :[place] (two) Medical times Branch daily for 14 days. furosemide 2019-2019- No [id number] 40mg Take 1 [facility] (LASIX) 40 9-30 10-15 tablet by ity of mg tablet 00:00: 04:59 mouth 2 [place] 00 :[place] (two) Medical times Branch daily for 14 days. furosemide 2019- 2020- No [id number] 40mg Take 1 [facility] (LASIX) 40 9-30 10-15 tablet by ity of mg tablet 00:00: 04:59 mouth 2 [place] 00 :[place] (two) Medical times Branch daily for 14 days. carvediloL 2020- No [id number] 25mg Take 1 [facility] 25 mg 08-14-30 tablet by ity of tablet 00:00: 00:00 mouth 2 [place] 00 :00 (two) Medical times Branch daily with meals for 30 days. carvediloL 2019- 2020- No [id number] 25mg Take 2 [facility] 12.5 mg 9-30 09-30 tablets by ity o f tablet 00:00: 00:00 mouth 2 [place] 00 :00 (two) Medical times Branch daily with meals. aspirin 81 2020-0 Yes [id number] 81mg Take 1 U nivers mg chewable 9-15 tablet by ity of tablet 00:00: mouth [place] 00 daily. Medical Branch aspirin 81 2020-0 Yes [id number] 81mg Take 1 U nivers mg chewable 9-15 tablet by ity of tablet 00:00: mouth [place] 00 daily. Medical Branch aspirin 81 2020-0 Yes [id number] 81mg Take 1 U nivers mg chewable 9-15 tablet by ity of tablet 00:00: mouth [place] 00 daily. Medical Branch aspirin 81 2020-0 Yes [id number] 81mg Take 1 U nivers mg chewable 9-15 tablet by ity of tablet 00:00: mouth [place] 00 daily. Medical Branch aspirin 81 2020-0 Yes [id number] 81mg Take 1 U nivers mg chewable 9-15 tablet by ity of tablet 00:00: mouth [place] 00 daily. Medical Branch aspirin 81 2020-0 Yes [id number] 81mg Take 1 U nivers mg chewable 9-15 tablet by ity of tablet 00:00: mouth [place] 00 daily. Medical Branch aspirin 81 2020-0 Yes [id number] 81mg Take 1 U nivers mg chewable 9-15 tablet by ity of tablet 00:00: mouth [place] 00 daily. Medical Branch aspirin 81 2020-0 Yes [id number] 81mg Take 1 U nivers mg chewable 9-15 tablet by ity of tablet 00:00: mouth [place] 00 daily. Medical Branch aspirin 81 2020-0 Yes [id number] 81mg Take 1 U nivers mg chewable 9-15 tablet by ity of tablet 00:00: mouth [place] 00 daily. Medical Branch aspirin 81 2020-0 Yes [id number] 81mg Take 1 U nivers mg chewable 9-15 tablet by ity of tablet 00:00: mouth [place] 00 daily. Medical Branch aspirin 81 2020-0 Yes [id number] 81mg Take 1 U nivers mg chewable 9-15 tablet by ity of tablet 00:00: mouth [place] 00 daily. Medical Branch aspirin 81 2020-0 Yes [id number] 81mg Take 1 U nivers mg chewable 9-15 tablet by ity of tablet 00:00: mouth [place] 00 daily. Medical Branch aspirin 81 2020-0 Yes [id number] 81mg Take 1 U nivers mg chewable 9-15 tablet by ity of tablet 00:00: mouth [place] 00 daily. Medical Branch aspirin 81 2020-0 Yes [id number] 81mg Take 1 U nivers mg chewable 9-15 tablet by ity of tablet 00:00: mouth [place] 00 daily. Medical [facility] aspirin 81 2020-0 Yes [id number] 81mg Take 1 U nivers mg chewable 9-15 tablet by ity of tablet 00:00: mouth [place] 00 daily. Medical Branch aspirin 81 2020-0 Yes [id number] 81mg Take 1 U nivers mg chewable 9-15 tablet by ity of tablet 00:00: mouth [place] 00 daily. Medical [facility] aspirin 81 2020-0 Yes [id number] 81mg Take 1 U nivers mg chewable 9-15 tablet by ity of tablet 00:00: mouth [place] 00 daily. Medical Branch aspirin 81 2020-0 Yes [id number] 81mg Take 1 U nivers mg chewable 9-15 tablet by ity of tablet 00:00: mouth [place] 00 daily. Medical Branch aspirin 81 2020-0 Yes [id number] 81mg Take 1 U nivers mg chewable 9-15 tablet by ity of tablet 00:00: mouth [place] 00 daily. Medical Branch aspirin 81 2020-0 Yes [id number] 81mg Take 1 U nivers mg chewable 9-15 tablet by ity of tablet 00:00: mouth [place] 00 daily. Medical Branch aspirin 81 2020-0 Yes [id number] 81mg Take 1 U nivers mg chewable 9-15 tablet by ity of tablet 00:00: mouth [place] 00 daily. Medical Branch aspirin 81 2020-0 Yes [id number] 81mg Take 1 U nivers mg chewable 9-15 tablet by ity of tablet 00:00: mouth [place] 00 daily. Medical Branch aspirin 81 2020-0 Yes [id number] 81mg Take 1 U nivers mg chewable 9-15 tablet by ity of tablet 00:00: mouth [place] 00 daily. [facility] aspirin 81 2020-0 Yes [id number] 81mg Take 1 U nivers mg chewable 9-15 tablet by ity of tablet 00:00: mouth [place] 00 daily. Medical [facility] aspirin 81 2020-0 Yes [id number] 81mg Take 1 U nivers mg chewable 9-15 tablet by ity of tablet 00:00: mouth [place] 00 daily. [facility] aspirin 81 2020-0 Yes [id number] 81mg Take 1 U nivers mg chewable 9-15 tablet by ity of tablet 00:00: mouth [place] 00 daily. Medical [facility] aspirin 81 2020-0 Yes [id number] 81mg Take 1 U nivers mg chewable 9-15 tablet by ity of tablet 00:00: mouth [place] 00 daily. [facility] aspirin 81 2020-0 Yes [id number] 81mg Take 1 U nivers mg chewable 9-15 tablet by ity of tablet 00:00: mouth [place] 00 daily. [facility] aspirin 81 2020-0 Yes [id number] 81mg Take 1 U nivers mg chewable 9-15 tablet by ity of tablet 00:00: mouth [place] 00 daily. [facility] aspirin 81 2020-0 Yes [id number] 81mg Take 1 U nivers mg chewable 9-15 tablet by ity of tablet 00:00: mouth [place] 00 daily. [facility] aspirin 81 2020-0 Yes [id number] 81mg Take 1 U nivers mg chewable 9-15 tablet by ity of tablet 00:00: mouth [place] 00 daily. [facility] aspirin 81 2020-0 Yes [id number] 81mg Take 1 U nivers mg chewable 9-15 tablet by ity of tablet 00:00: mouth [place] 00 daily. [facility] aspirin 81 2020-0 Yes [id number] 81mg Take 1 U nivers mg chewable 9-15 tablet by ity of tablet 00:00: mouth [place] 00 daily. Medical [facility] aspirin 81 2020-0 Yes [id number] 81mg Take 1 U nivers mg chewable 9-15 tablet by ity of tablet 00:00: mouth [place] 00 daily. [facility] aspirin 81 2020-0 Yes [id number] 81mg Take 1 U nivers mg chewable 9-15 tablet by ity of tablet 00:00: mouth [place] 00 daily. Medical [facility] aspirin 81 2020-0 Yes [id number] 81mg Take 1 U nivers mg chewable [...] by mouth ity of tablet 21:17: daily. [place] [address] Medical Branch atorvastati 2019-0 Yes 40mg Take 40 mg Univers n 40 mg 9-14 by mouth ity of tablet 21:17: at [place] [address] bedtime. Medical Branch allopurinoL 2019-0 Yes 300mg Take 300 U nivers 100 mg 9-14 mg by ity of tablet 21:17: mouth [place] 49 daily. Medical Branch glipiZIDE 2019-0 Yes 10mg Take 10 mg Un sparkle 10 mg 9-14 by mouth ity of tablet 21:17: daily. [place] [address] Medical Branch metformin 2019-0 Yes 500mg Take 500 Uni vers ER 500 mg 9-14 mg by ity of 24 hr 21:17: mouth [place] tablet 49 daily with Medical breakfast. Branch fenofibrate 0 Yes 54mg Take 54 mg Univers 54 mg 9-14 by mouth ity of tablet 21:17: daily. [place] [address] Medical Branch atorvastati 2019-0 Yes 40mg Take 40 mg Univers n 40 mg 9-14 by mouth ity of tablet 21:17: at [place] [address] bedtime. Medical Branch allopurinoL 2019-0 Yes 300mg Take 300 U nivers 100 mg 9-14 mg by ity of tablet 21:17: mouth [place] 49 daily. Medical Branch glipiZIDE 2019-0 Yes 10mg Take 10 mg Un sparkle 10 mg 9-14 by mouth ity of tablet 21:17: daily. [place] [address] Medical Branch carvediloL 2019-0 Yes [id number] 12.5mg Take 1 Univers 12.5 mg 9-14 tablet by ity of tablet 00:00: mouth 2 [place] 00 (two) Medical times Branch daily with meals. carvediloL 0 2020- No [id number] 12.5mg Take 1 Univers 12.5 mg 9-14 09-30 tablet by ity of tablet 00:00: 00:00 mouth 2 [place] 00 :00 (two) Medical times Branch daily [...] mg 1-17 capsule 00:00: 00 glipizide 5 2016- No 1mg [...] mg tablet 2-13 00:00: 00 glipizide 5 2016- No 1mg [...] 40 mg 2-13 tablet 00:00: 00 lisinopril 2017- No 2mg 20 2-11 mg-hydrochl 00:00: orothiazide [...] 18:04:00 149 mm[Hg] Univer sity of pressure [place] [facility] Diastolic blood 2023-07-22 18:04:00 87 mm[Hg] Unive rsity of pressure [place] [facility] Heart rate 2023-07-22 18:04:00 83 /min [facility] [place] [facility] Body temperature 2023-07-22 18:01:00 36.89 Cyn Univ ers[facility] [place] [facility] Respiratory rate 2023-07-22 18:01:00 18 /min [facility] [place] [facility] Body height 2023-07-22 18:01:00 175.3 cm [facility] [place] [facility] Body weight 2023-07-22 18:01:00 139.572 kg [facility] [place] [facility] BMI 2023-07-22 18:01:00 45.44 kg/m2 [facility] [place] [facility] [place] Oxygen saturation in 2023-07-22 18:01:00 91 /min University of Arterial blood by [facility] Pulse oximetry Branch Respiratory rate 2023-03-19 18:44:00 16 /min Univ ersity of [place] [facility] Oxygen saturation in 2023-03-19 18:44:00 92 /min University of Arterial blood by [facility] Pulse oximetry Branch Systolic blood 2023-03-19 16:40:00 132 mm[Hg] Univer sity of pressure [place] [facility] Diastolic blood 2023-03-19 16:40:00 77 mm[Hg] Unive rsity of pressure [place] [facility] Heart rate 2023-03-19 16:40:00 79 /min [facility] [place] [facility] Body temperature 2023-03-19 16:40:00 35.89 Cyn [facility] [place] [facility] Body weight 2023-03-19 08:44:00 143.972 kg [facility] [place] [facility] BMI 2023-03-19 08:44:00 46.87 kg/m2 [facility] [place] [facility] Body height 2023-03-16 20:58:00 175.3 cm [facility] [place] [facility] Systolic blood 2020-10-02 17:45:00 125 mm[Hg] Univer sity of pressure [place] [facility] Diastolic blood 2020-10-02 17:45:00 81 mm[Hg] Unive rsity of pressure [place] [facility] Heart rate 2020-10-02 17:41:00 82 /min [facility] [place] [facility] Body height 2020-10-02 17:41:00 175.3 cm [facility] [place] [facility] Body weight 2020-10-02 17:41:00 139.708 kg [facility] [place] [facility] BMI 2020-10-02 17:41:00 45.48 kg/m2 Universi ty of [facility] Branch Systolic blood 2020-08-20 19:03:00 156 mm[Hg] Univer sity of pressure [place] [facility] Diastolic blood 2020-08-20 19:03:00 95 mm[Hg] Unive rsity of pressure [facility] Branch Heart rate 2020-08-20 19:00:00 67 /min Universi ty of [facility] [place] [facility] Body weight 2020-08-20 19:00:00 142.792 kg [facility] [place] [facility] [place] BMI 2020-08-20 19:00:00 46.49 kg/m2 Universi ty of [facility] [place] [facility] Oxygen saturation in 2020-08-20 19:00:00 98 /min University of Arterial blood by [facility] Pulse oximetry Branch Systolic blood 2020-08-14 20:00:00 170 mm[Hg] Univer sity of pressure [facility] Branch Diastolic blood 2020-08-14 20:00:00 85 mm[Hg] Unive rsity of pressure [facility] Branch Respiratory rate 2020-08-14 20:00:00 18 /min Univ ersity of [facility] [place] [facility] Heart rate 2020-08-14 19:15:00 61 /min Universi ty of [facility] [place] [facility] Oxygen saturation in 2020-08-14 19:15:00 98 /min University of Arterial blood by [facility] Pulse oximetry Branch Body temperature 2020-08-14 16:36:00 37.22 Cyn Univ ers[facility] [place] [facility] Body height 2020-08-14 16:36:00 175.3 cm [facility] [place] [facility] Body weight 2020-08-14 16:36:00 142.883 kg [facility] [place] [facility] BMI 2020-08-14 16:36:00 46.52 kg/m2 [facility] [place] [facility] BP Systolic 2022-11-13 11:29:00 175 [...] DATA REPORT 2023-07-08 05:01:00 Doctor Unassigned, [facility] [place] [facility] POCT GLUCOSE (AUTOMATED) 2023-03-19 16:41:00 Chirag Lee [facility] POCT GLUCOSE (AUTOMATED) 2023-03-19 12:59:00 Chirag Lee [facility] HEPATIC FUNCTION PANEL 2023-03-19 10:23:00 Chirag Lee [facility] ([id number]) (ALB,T.PRO,BILI Medical Branch T,BU/BC,ALT,AST,ALK PHOS) BASIC METABOLIC PANEL 2023-03-19 10:23:00 Chirag Lee [facility] (NA, K, CL, CO2, GLUCOSE, Medica l Branch BUN, CREATININE, CA) POCT GLUCOSE (AUTOMATED) 2023-03-18 21:28:00 Chirag Lee [facility] POCT GLUCOSE (AUTOMATED) 2023-03-18 16:45:00 Chirag Lee [facility] POCT GLUCOSE (AUTOMATED) 2023-03-18 12:57:00 Chirag Lee [facility] ACUTE CARE VENOUS BLOOD 2023-03-18 08:21:00 [facility] HEPATIC FUNCTION PANEL 2023-03-18 08:13[id number] (ALB,T.PRO,BILI Medical Branch T,BU/BC,ALT,AST,ALK PHOS) BASIC METABOLIC PANEL 2023-03-18 08:13:00 [facility] (NA, K, CL, CO2, GLUCOSE, Medica l Branch BUN, CREATININE, CA) CBC WITH DIFF 2023-03-18 08:13:00 [facility] [place] [facility] GLYCOSYLATED HEMOGLOBIN 2023-03-18 08:13:00 Chirag Lee [facility] (A1C) [facility] POCT GLUCOSE (AUTOMATED) 2023-03-18 01:19:00 Chirag Lee [facility] POCT GLUCOSE (AUTOMATED) 2023-03-17 22:09:00 Chirag Lee [facility] POCT GLUCOSE (AUTOMATED) 2023-03-17 17:03:00 Chirag Lee [facility] POCT GLUCOSE (AUTOMATED) 2023-03-17 12:45:00 Chirag Lee [facility] LIPID PANEL ([id number])(TOTAL 2023-03-17 08:37:00 [facility] CHOLESTEROL, [facility] TRIGLYCERIDES, HDL) POCT GLUCOSE (AUTOMATED) 2023-03-17 01:26:00 Chirag Lee [facility] POCT GLUCOSE (AUTOMATED) 2023-03-16 22:16:00 Chirag Lee [facility] CT ABDOMEN PELVIS W 2023-03-16 17:17:08 Jay Samuel [facility] CONTRAST [facility] CT CHEST PULMONARY 2023-03-16 17:17:08 Jay Samuel [facility] ANGIOGRAM [facility] Branch XR CHEST 1 VW 2023-03-16 15:19:50 Jay Samuel [facility] ACUTE CARE VENOUS BLOOD 2023-03-16 15:12:00 Jay Samuel [facility] GAS [facility] LACTIC ACID WHOLE BLOOD 2023-03-16 15:12:00 Jay Samuel [facility] HB ECG ROUTINE & RHYTHM 2023-03-16 15:07:48 Jay Samuel [facility] STRIP [facility] LIPASE 2023-03-16 15:05:00 Jay Samuel [facility] TROPONIN I 2023-03-16 15:05:00 Jay Samuel [facility] COMP. METABOLIC PANEL 2023-03-16 15:05:00 Jay Samuel [facility] ([id number]) [facility] CBC WITH DIFF 2023-03-16 15:05:00 Jay Samuel [facility] URINALYSIS 2023-03-16 15:05:00 Jay Samuel [facility] RAPID INFLUENZA A/B 2023-03-16 15:05:00 Jay Samuel [facility] N-TERMINAL PRO-BNP 2023-03-16 15:05:00 Jay Samuel [facility] COVID-19 (ID NOW RAPID 2023-03-16 15:05:00 Jay Samuel [facility] TESTING) Medical Branch LAB ONLY COVID 2023-03-16 15:05:00 Jay Samuel [facility] INTERPRETATION [facility] POCT GLUCOSE (AUTOMATED) 2023-03-16 14:47:00 Jay Samuel Un [facility] CONSENT/REFUSAL FOR 2023-03-16 14:38:30 Doctor Unassigned, [facility] DIAGNOSIS AND TREATMENT [place] [facility] REFERRAL- 2022-06-02 05:01:00 Doctor Unassigned, [facility] REQUEST/RESPONSE [place] [facility] ASSIGNMENT OF BENEFITS 2020-10-16 16:59:19 Doctor Unassigned, [facility] [place] [facility] COVID-19 (ID NOW RAPID 2020-09-23 15:31:00 Steve Grande [facility] TESTING) Medical Branch CONSENT/REFUSAL FOR 2020-09-23 14:40:38 Doctor Unassigned, [facility] DIAGNOSIS AND TREATMENT [place] [facility] ASSIGNMENT OF BENEFITS 2020-09-23 14:40:20 Doctor Unassigned, [facility] [place] [facility] COVID-19 (ID NOW RAPID 2020-08-14 17:41:00 Yuriy Wong [facility] TESTING) Medical Branch XR CHEST 2 VW 2020-08-14 17:27:25 Yuriy Wong [facility] Medical Branch LIPASE 2020-08-14 16:56:00 Saenz, [facility] TROPONIN I 2020-08-14 16:56[facility] METABOLIC PANEL 2020-08-14 16:56:00 Nestor Saenz [facility] ([id number]) Medical Branch CBC WITH DIFF 2020-08-14 16:56:00 Nestor Saenz [facility] [place] [facility] PROTHROMBIN TIME / INR 2020-08-14 16:56:00 Nestor Saenz [facility] ACTIVATED PARTIAL 2020-08-14 16:56:00 Nestor Saenz [facility] THRMPLAS AVERY [facility] N-TERMINAL PRO-BNP 2020-08-14 16:56[facility]00 [facility] 2020-08-14 16:53:49 Singer Nestor [facility] NOTICE OF PRIVACY 2020-08-14 16:32:14 Doctor Unassigned, [facility] PRACTICES [place] [facility] [place] CONSENT/REFUSAL FOR 2020-08-14 16:29:49 [facility] DIAGNOSIS AND TREATMENT [place] [facility] Plan of Care Planned Activity Planned Date Details Comments Source Goal Plan of Care Note [code = 90102-3] Goal Plan of Care Note [code = 51769-5] Goal Plan of Care Note [code = 20592-1] Goal Plan of Care Note [code = 96182-2] Goal Plan of Care Note [code = 42672-6] Goal Plan of Care Note [code = 69970-9] Goal Plan of Care Note [code = 11777-5] Goal Plan of Care Note [code = 69356-0] Goal Plan of Care Note [code = 63751-0] Goal Plan of Care Note [code = 78568-5] Goal Plan of Care Note [code = 20502-2] Goal Plan of Care Note [code = 72757-6] Goal Plan of Care Note [code = 18127-3] Goal Plan of Care Note [code = 57001-3] Goal Plan of Care Note [code = 07126-8] Goal Plan of Care Note [code = 19721-3] Goal Plan of Care Note [code = 52328-0] Goal Plan of Care Note [code = 77486-4] Goal Plan of Care Note [code = 86361-6] Goal Plan of Care Note [code = 55068-3] Goal Plan of Care Note [code = 60180-0] Goal Plan of Care Note [code = 95462-8] Goal Plan of Care Note [code = 21153-0] Goal Plan of Care Note [code = 44334-6] Goal Plan of Care Note [code = 00455-1] Goal Plan of Care Note [code = 07704-0] Goal Plan of Care Note [code = 49063-9] Goal Plan of Care Note [code = 96418-0] Goal Plan of Care Note [code = 50221-4] Goal Plan of Care Note [code = 93870-3] Goal Plan of Care Note [code = 79024-9] Goal Plan of Care Note [code = 91542-5] Goal Plan of Care Note [code = 49501-3] Goal Plan of Care Note [code = 48107-5] Goal Plan of Care Note [code = 05609-6] Goal Plan of Care Note [code = 52613-1] Goal Plan of Care Note [code = 64598-9] Goal Plan of Care Note [code = 43919-1] Goal Plan of Care Note [code = 35189-8] Goal Plan of Care Note [code = 76423-9] Goal Plan of Care Note [code = 86374-3] Goal Plan of Care Note [code = 66310-4] Goal Plan of Care Note [code = 73587-5] Goal Plan of Care Note [code = 85025-7] Goal Plan of Care Note [code = 58079-3] Goal Plan of Care Note [code = 38513-7] Goal Plan of Care Note [code = 45136-9] Goal Plan of Care Note [code = 11257-2] Goal Plan of Care Note [code = 64375-2] Goal Plan of Care Note [code = 91787-3] Goal Plan of Care Note [code = 13728-1] Goal Plan of Care Note [code = 47147-1] Goal Plan of Care Note [code = 64741-4] Goal Plan of Care Note [code = 92370-9] Goal Plan of Care Note [code = 48983-9] Goal Plan of Care Note [code = 73025-3] Goal Plan of Care Note [code = 62765-7] Goal Plan of Care Note [code = 74238-4] Goal Plan of Care Note [code = 78062-7] Goal Plan of Care Note [code = 39407-7] Goal Plan of Care Note [code = 93067-9] Goal Plan of Care Note [code = 82586-5] Goal Plan of Care Note [code = 26541-0] Goal Plan of Care Note [code = 71568-3] Goal Plan of Care Note [code = 14947-7] Goal Plan of Care Note [code = 56250-5] Goal Plan of Care Note [code = 53016-6] Goal Plan of Care Note [code = 63948-5] Goal Plan of Care Note [code = 35321-5] Goal Plan of Care Note [code = 19244-0] Goal Plan of Care Note [code = 92564-2] Goal Plan of Care Note [code = 79249-2] Goal Plan of Care Note [code = 34976-2] Goal Plan of Care Note [code = 47015-9] Goal Plan of Care Note [code = 87154-7] Goal Plan of Care Note [code = 36626-5] Goal Plan of Care Note [code = 66762-7] Goal Plan of Care Note [code = 59685-8] Goal Plan of Care Note [code = 74784-0] Goal Plan of Care Note [code = 71177-3] Goal Plan of Care Note [code = 21223-2] Goal Plan of Care Note [code = 45710-7] Goal Plan of Care Note [code = 86947-6] Goal Plan of Care Note [code = 28497-5] Goal Plan of Care Note [code = 58307-6] Goal Plan of Care Note [code = 78313-6] Goal Plan of Care Note [code = 80316-7] Goal Plan of Care Note [code = 33024-5] Goal Plan of Care Note [code = 94015-0] Goal Plan of Care Note [code = 56597-8] Goal Plan of Care Note [code = 79688-5] Goal Plan of Care Note [code = 56590-2] Goal Plan of Care Note [code = 40937-2] Goal Plan of Care Note [code = 14716-4] Goal Plan of Care Note [code = 24777-3] Goal Plan of Care Note [code = 83785-8] Goal Plan of Care Note [code = 30536-9] Goal Plan of Care Note [code = 01926-8] Goal Plan of Care Note [code = 61168-4] Goal Plan of Care Note [code = 54736-3] Goal Plan of Care Note [code = 17664-3] Goal Plan of Care Note [code = 67992-3] Goal Plan of Care Note [code = 42065-3] Goal Plan of Care Note [code = 61669-0] Goal Plan of Care Note [code = 45424-8] Goal Plan of Care Note [code = 85058-6] Goal Plan of Care Note [code = 29410-6] Goal Plan of Care Note [code = 17699-1] Goal Plan of Care Note [code = 95521-3] Goal Plan of Care Note [code = 02733-7] Goal Plan of Care Note [code = 93685-2] Goal Plan of Care Note [code = 46901-6] Goal Plan of Care Note [code = 21663-9] Goal Plan of Care Note [code = 81108-4] Goal Plan of Care Note [code = 88016-0] Goal Plan of Care Note [code = 69414-3] Goal Plan of Care Note [code = 04640-9] Goal Plan of Care Note [code = 00154-2] Goal Plan of Care Note [code = 31353-1] Goal Plan of Care Note [code = 82804-3] Goal Plan of Care Note [code = 37362-4] Goal Plan of Care Note [code = 90912-0] Goal Plan of Care Note [code = 85119-6] Goal Plan of Care Note [code = 21458-0] Goal Plan of Care Note [code = 52161-8] Goal Plan of Care Note [code = 84290-8] Goal Plan of Care Note [code = 58387-9] Goal Plan of Care Note [code = 61573-8] Goal Plan of Care Note [code = 49171-2] Goal Plan of Care Note [code = 50603-1] Goal Plan of Care Note [code = 57358-2] Goal Plan of Care Note [code = 47465-1] Goal Plan of Care Note [code = 18809-7] Goal Plan of Care Note [code = 38887-2] Goal Plan of Care Note [code = 66070-5] Goal Plan of Care Note [code = 51369-9] Goal Plan of Care Note [code = 90060-2] Goal Plan of Care Note [code = 45721-8] Goal Plan of Care Note [code = 93498-2] Goal Plan of Care Note [code = 66819-8] Goal Plan of Care Note [code = 42501-0] Goal Plan of Care Note [code = 90842-4] Goal Plan of Care Note [code = 13492-9] Goal Plan of Care Note [code = 06210-5] Goal Plan of Care Note [code = 78112-1] Goal Plan of Care Note [code = 87704-8] Goal Plan of Care Note [code = 74510-5] Goal Plan of Care Note [code = 02622-7] Goal Plan of Care Note [code = 68319-4] Goal Plan of Care Note [code = 24280-7] Goal Plan of Care Note [code = 61320-8] Goal Plan of Care Note [code = 03197-6] Goal Plan of Care Note [code = 27511-1] Goal Plan of Care Note [code = 88485-2] Goal Plan of Care Note [code = 79208-9] Goal Plan of Care Note [code = 01366-0] Goal Plan of Care Note [code = 10571-6] Goal Plan of Care Note [code = 91138-3] Goal Plan of Care Note [code = 50255-7] Goal Plan of Care Note [code = 39890-7] Goal Plan of Care Note [code = 12560-0] Goal Plan of Care Note [code = 56762-9] Goal Plan of Care Note [code = 60439-5] Goal Plan of Care Note [code = 15498-0] Goal Plan of Care Note [code = 57072-9] Goal Plan of Care Note [code = 10807-2] Goal Plan of Care Note [code = 62575-8] Goal Plan of Care Note [code = 13402-3] Goal Plan of Care Note [code = 27508-4] Goal Plan of Care Note [code = 42874-0] Goal Plan of Care Note [code = 78136-3] Goal Plan of Care Note [code = 11599-2] Goal Plan of Care Note [code = 35746-9] Goal Plan of Care Note [code = 22777-6] Goal Plan of Care Note [code = 56240-4] Goal Plan of Care Note [code = 98925-9] Goal Plan of Care Note [code = 14953-4] Goal Plan of Care Note [code = 33111-4] Goal Plan of Care Note [code = 74785-1] Goal Plan of Care Note [code = 73700-4] Goal Plan of Care Note [code = 25493-4] Goal Plan of Care Note [code = 25404-2] Goal Plan of Care Note [code = 22793-9] Goal Plan of Care Note [code = 69683-4] Goal Plan of Care Note [code = 92405-2] Goal Plan of Care Note [code = 92975-5] Goal Plan of Care Note [code = 70640-4] Goal Plan of Care Note [code = 90279-7] Goal Plan of Care Note [code = 22066-8] Goal Plan of Care Note [code = 64944-5] Goal Plan of Care Note [code = 58782-5] Goal Plan of Care Note [code = 01311-1] Goal Plan of Care Note [code = 58736-5] Goal Plan of Care Note [code = 56669-5] Goal Plan of Care Note [code = 81270-0] Goal Plan of Care Note [code = 29339-2] Goal Plan of Care Note [code = 52480-4] Goal Plan of Care Note [code = 72195-7] Goal Plan of Care Note [code = 13063-8] Goal Plan of Care Note [code = 59550-4] Goal Plan of Care Note [code = 08313-3] Goal Plan of Care Note [code = 00599-4] Goal Plan of Care Note [code = 91247-0] Goal Plan of Care Note [code = 31234-4] Goal Plan of Care Note [code = 25196-3] Goal Plan of Care Note [code = 23308-7] Goal Plan of Care Note [code = 81676-6] Goal Plan of Care Note [code = 57022-5] Goal Plan of Care Note [code = 72045-0] Goal Plan of Care Note [code = 99154-8] Goal Plan of Care Note [code = 84447-3] Goal Plan of Care Note [code = 77373-0] Goal Plan of Care Note [code = 59767-5] Goal Plan of Care Note [code = 00379-8] Goal Plan of Care Note [code = 16921-9] Goal Plan of Care Note [code = 33363-5] Goal Plan of Care Note [code = 78614-0] Goal Plan of Care Note [code = 45260-3] Goal Plan of Care Note [code = 63920-0] Goal Plan of Care Note [code = 56612-3] Goal Plan of Care Note [code = 51834-2] Goal Plan of Care Note [code = 97162-2] Goal Plan of Care Note [code = 56836-3] Goal Plan of Care Note [code = 91223-5] Goal Plan of Care Note [code = 08139-7] Goal Plan of Care Note [code = 97521-9] Goal Plan of Care Note [code = 88664-4] Goal Plan of Care Note [code = 35040-0] Goal Plan of Care Note [code = 06661-8] Goal Plan of Care Note [code = 82120-4] Goal Plan of Care Note [code = 03329-6] Goal Plan of Care Note [code = 62880-4] Goal Plan of Care Note [code = 35654-0] Goal Plan of Care Note [code = 95158-7] Goal Plan of Care Note [code = 67660-9] Goal Plan of Care Note [code = 56908-6] Goal Plan of Care Note [code = 26962-5] Goal Plan of Care Note [code = 60418-7] Goal Plan of Care Note [code = 56802-3] Goal Plan of Care Note [code = 77129-3] Goal Plan of Care Note [code = 75474-9] Goal Plan of Care Note [code = 97554-2] Goal Plan of Care Note [code = 58766-1] Goal Plan of Care Note [code = 33865-6] Goal Plan of Care Note [code = 89090-3] Goal Plan of Care Note [code = 97875-2] Goal Plan of Care Note [code = 28420-4] Goal Plan of Care Note [code = 21789-8] Goal Plan of Care Note [code = 11284-4] Goal Plan of Care Note [code = 64854-6] Goal Plan of Care Note [code = 07742-3] Goal Plan of Care Note [code = 39951-8] Goal Plan of Care Note [code = 21972-9] Goal Plan of Care Note [code = 63643-2] Goal Plan of Care Note [code = 43258-8] Goal Plan of Care Note [code = 66744-6] Goal Plan of Care Note [code = 66730-7] Goal Plan of Care Note [code = 09989-2] Goal Plan of Care Note [code = 76704-4] Goal Plan of Care Note [code = 55896-3] Goal Plan of Care Note [code = 97043-7] Goal Plan of Care Note [code = 94283-1] Goal Plan of Care Note [code = 01831-0] Goal Plan of Care Note [code = 91640-9] Goal Plan of Care Note [code = 98571-9] Goal Plan of Care Note [code = 95949-4] Goal Plan of Care Note [code = 89640-9] Goal Plan of Care Note [code = 88043-5] Goal Plan of Care Note [code = 23961-3] Goal Plan of Care Note [code = 53012-3] Goal Plan of Care Note [code = 26361-8] Goal Plan of Care Note [code = 98848-6] Goal Plan of Care Note [code = 48117-5] Goal Plan of Care Note [code = 73265-6] Goal Plan of Care Note [code = 98781-9] Goal Plan of Care Note [code = 46339-8] Goal Plan of Care Note [code = 62105-1] Goal Plan of Care Note [code = 20331-0] Goal Plan of Care Note [code = 78160-2] Goal Plan of Care Note [code = 99988-9] Goal Plan of Care Note [code = 10703-4] Goal Plan of Care Note [code = 29945-1] Goal Plan of Care Note [code = 77699-3] Goal Plan of Care Note [code = 58438-2] Goal Plan of Care Note [code = 45901-9] Goal Plan of Care Note [code = 69949-5] Goal Plan of Care Note [code = 41274-7] Goal Plan of Care Note [code = 68936-3] Goal Plan of Care Note [code = 07958-5] Goal Plan of Care Note [code = 92424-0] Goal Plan of Care Note [code = 74383-1] Goal Plan of Care Note [code = 84991-3] Goal Plan of Care Note [code = 92310-7] Goal Plan of Care Note [code = 65540-5] Goal Plan of Care Note [code = 80186-6] Goal Plan of Care Note [code = 25664-0] Goal Plan of Care Note [code = 78160-4] Goal Plan of Care Note [code = 35425-9] Goal Plan of Care Note [code = 29929-9] Goal Plan of Care Note [code = 18226-5] Goal Plan of Care Note [code = 64573-2] Goal Plan of Care Note [code = 95925-7] Goal Plan of Care Note [code = 13939-6] Goal Plan of Care Note [code = 28927-2] Goal Plan of Care Note [code = 54517-1] Goal Plan of Care Note [code = 91405-3] Goal Plan of Care Note [code = 19484-3] Goal Plan of Care Note [code = 80145-6] Goal Plan of Care Note [code = 67885-0] Goal Plan of Care Note [code = 28219-7] Goal Plan of Care Note [code = 06931-1] Goal Plan of Care Note [code = 38440-8] Goal Plan of Care Note [code = 30131-0] Goal Plan of Care Note [code = 37645-9] Goal Plan of Care Note [code = 50631-8] Goal Plan of Care Note [code = 54362-2] Goal Plan of Care Note [code = 43567-4] Goal Plan of Care Note [code = 87607-5] Goal Plan of Care Note [code = 55595-8] Goal Plan of Care Note [code = 98178-4] Goal Plan of Care Note [code = 63403-6] Goal Plan of Care Note [code = 67239-0] Goal Plan of Care Note [code = 14163-2] Goal Plan of Care Note [code = 19546-2] Goal Plan of Care Note [code = 39510-0] Goal Plan of Care Note [code = 34920-1] Goal Plan of Care Note [code = 83041-6] Goal Plan of Care Note [code = 69333-4] Goal Plan of Care Note [code = 07977-4] Goal Plan of Care Note [code = 37117-3] Goal Plan of Care Note [code = 36696-0] Goal Plan of Care Note [code = 02762-2] Goal Plan of Care Note [code = 91028-0] Goal Plan of Care Note [code = 27787-3] Goal Plan of Care Note [code = 50377-4] Goal Plan of Care Note [code = 08116-7] Goal Plan of Care Note [code = 04287-0] Goal Plan of Care Note [code = 39266-5] Goal Plan of Care Note [code = 00081-1] Goal Plan of Care Note [code = 28667-2] Goal Plan of Care Note [code = 82172-9] Goal Plan of Care Note [code = 22215-7] Goal Plan of Care Note [code = 31530-3] Goal Plan of Care Note [code = 57532-1] Goal Plan of Care Note [code = 71642-8] Goal Plan of Care Note [code = 94790-7] Goal Plan of Care Note [code = 35621-5] Goal Plan of Care Note [code = 20037-0] Goal Plan of Care Note [code = 85541-9] Goal Plan of Care Note [code = 32048-2] Goal Plan of Care Note [code = 27059-7] Goal Plan of Care Note [code = 84301-2] Goal Plan of Care Note [code = 99858-6] Goal Plan of Care Note [code = 17989-2] Goal Plan of Care Note [code = 37445-9] Goal Plan of Care Note [code = 23354-4] Goal Plan of Care Note [code = 00047-9] Goal Plan of Care Note [code = 54800-0] Goal Plan of Care Note [code = 10262-9] Goal Plan of Care Note [code = 19443-7] Goal Plan of Care Note [code = 10281-6] Goal Plan of Care Note [code = 23144-6] Goal Plan of Care Note [code = 30592-5] Goal Plan of Care Note [code = 04183-9] Goal Plan of Care Note [code = 45120-1] Goal Plan of Care Note [code = 36564-3] Goal Plan of Care Note [code = 69113-9] Goal Plan of Care Note [code = 67491-2] Goal Plan of Care Note [code = 29231-7] Goal Plan of Care Note [code = 40414-3] Goal Plan of Care Note [code = 34069-3] Goal Plan of Care Note [code = 85924-7] Goal Plan of Care Note [code = 12699-5] Goal Plan of Care Note [code = 72954-9] Goal Plan of Care Note [code = 39996-1] Goal Plan of Care Note [code = 79178-6] Goal Plan of Care Note [code = 47876-4] Goal Plan of Care Note [code = 89791-2] Goal Plan of Care Note [code = 02450-5] Goal Plan of Care Note [code = 07943-0] Goal Plan of Care Note [code = 07362-6] Goal Plan of Care Note [code = 89896-8] Goal Plan of Care Note [code = 65161-9] Goal Plan of Care Note [code = 83450-8] Goal Plan of Care Note [code = 07129-1] Goal Plan of Care Note [code = 78291-8] Goal Plan of Care Note [code = 38136-9] Goal Plan of Care Note [code = 37230-2] Goal Plan of Care Note [code = 49023-8] Goal Plan of Care Note [code = 73802-2] Goal Plan of Care Note [code = 89341-2] Goal Plan of Care Note [code = 51311-3] Goal Plan of Care Note [code = 69227-5] Goal Plan of Care Note [code = 68876-0] Goal Plan of Care Note [code = 74362-5] Goal Plan of Care Note [code = 62339-4] Goal Plan of Care Note [code = 23365-6] Goal Plan of Care Note [code = 20940-3] Goal Plan of Care Note [code = 69999-6] Goal Plan of Care Note [code = 14898-8] Goal Plan of Care Note [code = 92359-8] Goal Plan of Care Note [code = 43001-2] Goal Plan of Care Note [code = 76888-6] Goal Plan of Care Note [code = 98033-6] Goal Plan of Care Note [code = 11957-8] Goal Plan of Care Note [code = 86360-5] Goal Plan of Care Note [code = 38665-4] Goal Plan of Care Note [code = 82860-9] Goal Plan of Care Note [code = 57764-2] Goal Plan of Care Note [code = 75356-9] Goal Plan of Care Note [code = 85373-0] Goal Plan of Care Note [code = 38625-8] Goal Plan of Care Note [code = 78701-0] Goal Plan of Care Note [code = 13934-0] Goal Plan of Care Note [code = 92210-7] Goal Plan of Care Note [code = 11486-0] Goal Plan of Care Note [code = 77796-3] Goal Plan of Care Note [code = 88258-4] Goal Plan of Care Note [code = 90473-9] Goal Plan of Care Note [code = 69224-1] Goal Plan of Care Note [code = 18951-7] Goal Plan of Care Note [code = 55578-9] Goal Plan of Care Note [code = 00556-3] Goal Plan of Care Note [code = 72853-3] Goal Plan of Care Note [code = 39427-8] Goal Plan of Care Note [code = 18732-5] Goal Plan of Care Note [code = 66600-8] Goal Plan of Care Note [code = 25138-9] Goal Plan of Care Note [code = 24862-5] Goal Plan of Care Note [code = 03531-1] Goal Plan of Care Note [code = 66508-7] Goal Plan of Care Note [code = 88747-9] Goal Plan of Care Note [code = 95127-7] Encounters Start End Encounter Admission Attending Care Care Encounter Source Date/Time Date/Time Type Type Clinicians Facility Department ID 2021-12[facility]10 [id number] Common 11:59:45 [id number] [facility] 2021-12-10 Outpatient Nichelle, STLMLC [facility] [id number] Common 11:55:33 Amairani [id number] [facility] 2021-12-10 Outpatient Nichelle, STLMLC [facility] [id number] Common 11:47:42 Amairani [id number] [facility] 2021-12-10 Outpatient Millender, STLMLC [facility] [id number] 202 Common 11:31:54 Amairani [id number] [facility] 2023-08-23 2023-08-23 Outpatient SFA SFA [id number] 023 Mark 08:48:18 08:48:18 1009 F Dave 2023-08-03 2023-08-03 Telephone Shayan [facility] 1.2.840.114 [id number] Univers 00:00:00 00:00:00 Strahil T MULTISPEC 350.1.13.10 ity of [place] 4.2.7.2.686 [facility] [place] [phone] [facility] [address] [facility] 2023-07-22 2023-07-22 Outpatient R EMBER MENA [facility] [id number] [facility] 13:00:00 13:14:33 EMBER MENA it of [facility] 2023-07-22 2023-07-22 Office Shayna [facility] [id number] [id number] [facility] 13:00:00 13:14:33 Visit [facility] T MULTISPEC 350.1.13.10 ity of [place] 4.2.7.2.686 [facility] [place] [phone] [facility] [address] [facility] 2023-07-22 2023-07-22 Letter Shayna [facility] 1.2.087.958 [id number] Univers 00:00:00 00:00:00 (Out) Famdel T MULTISPEC 350.1.13.10 ity of [place] 4.2.7.2.686 [facility] [place] [phone] [facility] AND [address] [facility] 2023-07-22 2023-07-22 Telephone Shayna [facility] 1.2.840.114 [id number] Univers 00:00:00 00:00:00 Stradel T MULTISPEC 350.1.13.10 ity of [place] 4.2.7.2.686 [facility] [place] [phone] [facility] AND [address] [facility] 2023-07-08 2023-07-08 Medical Insurance Biller Nava, [facility] Sleep Lab [facility] 1.2 .840.114 [id number] Univers 15:00:00 15:15:00 Visit Ember Mena 350.1.13. 10 it[place] of [place] [id number] [facility] [address] 2023-07-08 2023-07-08 Outpatient R EMBER MENA [facility] [id number] Univers 15:00:00 15:00:00 ATANASAARON MARTINEZL ity of [facility] 2023-07-08 2023-07-08 Letter Doctor UMESH 1.2.840.114 [id number] Univers 00:00:00 00:00:00 (Out) Unassigned, PAULO 350.1.13.10 ity of [place] [facility] 4.2.7.2.686 Raghu as [phone] [facility] [address] 2023-07-08 2023-07-08 Orders Doctor UMESH 1.2.840.114 [id number] Univers 00:00:00 00:00:00 Only Unassigned, PAULO 350.1.13.10 ity of [place] [facility] 4.2.7.2.686 Raghu as [phone] [facility] [address] 2023-06-24 2023-06-24 Outpatient SFA SFA [id number] 023 Mark 17:15:02 17:15:02 0810 [place] 2023-06-08 2023-06-08 Telephone Shayna [facility] 1.2.840.114 10 [id number] Univers 00:00:00 00:00:00 Ember RAMÍREZ 350.1.13.10 ity of [place] [facility] [id number] Ok dical NAL 085 [facility] 2023-04-26 2023-04-26 Outpatient SFA SFA 70593-7 023 Mark 11:09:48 11:09:48 0612 F [place] 2023-03-24 2023-03-24 Outpatient SFA SFA 71589-2 023 Mark 10:36:38 10:36:38 0510 F [place] 2023-03-22 2023-03-22 Transition ADELE Velazquez 1.2.840.114 [id number] Univers 00:00:00 00:00:00 of Care Reina MONCADA 350.1.13.10 ity of [place] 4.2.7.2.686 [facility] [phone] [facility] [address] 2023-03-16 2023-03-19 Inpatient X JESUS [facility] CELSA [id number] Univers 09:41:00 14:10:00 CHIRAG reyes [facility] 2023-03-16 2023-03-19 [facility] Jay Samuel [facility] 1.2.840. 114 [id number] Univers 09:41:00 14:10:00 Encounter Chirag Lee 350.1.13.10 ity of [place] 4.2.7.2.[address] [facility] [phone] [facility] [address] 2023-02-11 2023-02-11 Outpatient SFA SFA [id number] 023 Mark 16:24:05 16:24:05 0330 F [place] 2023-01-19 2023-01-19 Letter Zenaida, [facility] 1.2.840.114 [id number] Univers 00:00:00 00:00:00 (Out) General HEALTH 350.1.13.10 it y of Cardiology CLE[place] 4.2.7.2.686 T [facility] [phone] [facility] [address] OFFICE BUILDING 2022-11-17 2022-11-17 Outpatient SFA SFA [id number] 023 Mark 09:48:02 09:48:02 0103 F [place] 2022-11-13 2022-11-13 Outpatient SFA SFA [id number] 022 Mark 11:18:58 11:18:58 1230 F [place] 2022-11-13 2022-11-13 Outpatient l6a436b3- [id number] c2 r191e6-2 00:00:00 00:00:00 Visit 8zm6-6j8w ee5-4d2f-b -p3m9-746 3z6-823065 494lp24i0 ff66c2 2022-10-20 2022-10-20 Outpatient SFA SFA [id number] 022 Mark 11:33:10 11:33:10 1206 F [place] 2022-10-20 2022-10-20 Outpatient r4zh1390- [id number] a2 yx4646-0 00:00:00 00:00:00 Visit 932e-4310 32e-4310-8 -41d6-354 5k8-972837 296t98h52 e47f35 2022-10-16 2022-10-16 Outpatient SFA SFA 85869-7 022 Mark 08:22:31 08:22:31 1202 F Dave 2022-10-15 2022-10-15 Outpatient 650ck7ph- [id number] 1dr7py-4 00:00:00 00:00:00 Visit 2abe-4eb1 kathy-4eb1-8 -8j84-65s r81-15ew0t v4x1p1b48 4c1c31 2022-09-22 2022-09-22 Outpatient SFA SFA [id number] 022 Mark 11:21:57 11:21:57 1108 F Dave 2022-09-22 2022-09-22 Outpatient c26qg3ua- [id number] a9 7cv2ds-6 00:00:00 00:00:00 Visit 4cae-461d -461d-8 -849d-e84 49d-t7042k 23hkz9r92 bb5e70 2022-08-26 2022-08-26 Outpatient SFA SFA 10193-8 022 Mark 13:15:53 13:15:53 1012 F Dave 2022-08-25 2022-08-25 Outpatient SFA SFA [id number] 022 Mark 13:03:07 13:03:07 1011 F Dave 2022-08-24 2022-08-24 Outpatient acl95ee8- [id number] dc g65gb7-1 00:00:00 00:00:00 Visit 7s0i-2036 y1c-3531-r -p74c-5dh 58e-1cdbbe nixxm61s3 ad06a7 2022-08-07 2022-08-07 Outpatient 7t749h0p- [id number] 6b 732j2a-5 00:00:00 00:00:00 Visit 382e-4400 82e-4400-9 -9219-8d4 219-8d40bf 9kd6eh929 4ln553 2022-06-18 2022-06-18 Outpatient 2780b2c9- [id number] 07c3p9-1 00:00:00 00:00:00 Visit 9zy7-8p15 ea5-4b57-b -bfdc-954 [facility]-453192 188si338f bf782p 2022-06-04 2022-06-04 Outpatient 0x2h0csi- [id number] 4f 9g5dky-7 00:00:00 00:00:00 Visit 5h92-57b8 o89-68d5-5 -877d-222 77d-2220f2 1n1b9l319 c4b409 2022-06-02 2022-06-02 Orders Doctor UMESH 1.2.840.114 [id number] Univers 00:00:00 00:00:00 Only Unassigned, PAULO 350.1.13.10 ity [facility] 4.2.7.2.686 Raghu as [phone] [address] 2022-05-29 2022-05-29 Outpatient 4rpl46kt- [id number] 8c kg18qm-2 00:00:00 00:00:00 Visit 387b-495e 87b-495e-8 -8999-faa 999-faa70e 47b51c559 40u397 2020-10-21 2020-10-21 Telephone Shayna [facility] 1.2.840.114 [id number] [facility] 00:00:00 00:00:00 Ember Ramírez 350.1.13.10 ity [facility] [place] [phone] [place] dic[address] 2020-10-18 2020-10-18 Outpatient R EMBER MENA [facility] [id number] [facility] 19:30:00 19:30:00 EMBER MENA ity [facility] 2020-10-18 2020-10-18 Medical Insurance Biller 1, [facility] Sleep Lab Bed [facility] 1. 2.840.114 [id number] [facility] 12:53:38 15:23:38 Visit Ember Mena 350.1.13. 10 it[place] of [place] [phone] [facility] [address] 2020-10-16 2020-10-16 Laboratory Only, Adc Test [facility] 1.2.840. 114 [id number] Univers 11:00:02 11:15:02 Only Steve Grande Farhan 350.1.13.10 ity of [place] [phone] [facility] [address] 2020-10-16 2020-10-16 Outpatient R [facility] [id number] Univers 11:00:00 11:00:00 ity of [facility] 2020-10-16 2020-10-16 Outpatient R [facility] [id number] Univers 09:00:00 09:00:00 ity of [facility] 2020-10-16 2020-10-16 Orders Doctor CALVO 1.2.840.114 [id number] Univers 00:00:00 00:00:00 Only Unassigned, PAULO 350.1.13.10 [facility] 4.2.7.2.686 Raghu as [phone] [facility] [address] 2020-10-16 2020-10-16 Letter Shayna [facility] 1.2.487.009 [id number] Univers 00:00:00 00:00:00 (Out) Ember Graceton 350.1.13.10 it[place] of [place] [id number] [facility] [address] 2020-10-02 2020-10-02 Office Shayna [facility] 1.2.719.590 [id number] Univers 11:38:35 12:08:35 Visit Famhil T [place] 350.1.13.10 it[place] of [place] [phone] Ok dical [facility] [address] [facility] 2020-10-02 2020-10-02 Outpatient R EMBER MENA [facility] [id number] Univers 11:00:00 11:00:00 EMBER MENA ity of [facility] 2020-09-24 2020-09-24 Medical Insurance [employer], [facility] Sleep Lab [facility] 1.2 .840.114 [id number] Univers 13:15:18 13:30:18 Visit Ember Mena 350.1.13. 10 ity of [place] 4.2.7.2.686 [facility] [phone] [facility] [address] 2020-09-24 2020-09-24 Outpatient R EMBER MENA [facility] [id number] Univers 13:00:00 13:00:00 EMBER MENA ity of [facility] 2020-09-24 2020-09-24 Letter Shayna [facility] 1.2.762.175 [id number] Univers 00:00:00 00:00:00 (Out) Ember Ramírez 350.1.13.10 ity of [place] 4.2.7.2.686 [facility] [phone] [facility] [address] 2020-09-23 2020-09-23 Laboratory Only, Adc Test [facility] 1.2.840. 114 [id number] Univers 08:44:40 08:59:40 Only Steve Grande 350.1.13.10 ity of [place] 4.2.7.2.6 [facility] [phone] [facility] [address] 2020-09-23 2020-09-23 Outpatient R [facility] [id number] Univers 08:00:00 08:00:00 ity of [facility] 2020-09-23 2020-09-23 Orders Doctor CALVO 1.2.840.114 [id number] Univers 00:00:00 00:00:00 Only Unassigned, PAULO 350.1.13.10 ity of [place] [facility] 4.2.7.2.686 [facility] [phone] [facility] [address] 2020-09-20 2020-09-20 Outpatient R [facility] [id number] Univers 13:15:00 13:15:00 ity of [facility] 2020-09-17 2020-09-17 Outpatient R EMBER MENA [facility] [id number] Univers 10:00:00 10:00:00 EMBER MENA ity of [facility] 2020-09-13 2020-09-13 Outpatient R [facility] [id number] Univers 08:00:00 08:00:00 ity of [facility] 2020-09-05 2020-09-05 Telephone [facility] 1.2.907.024 [id number] Univers 00:00:00 00:00:00 Milagro [place] 350.1.13.10 it[place] of [place] [phone] [address] 2020-08-20 2020-08-20 Office [facility] 1.2.840.114 [id number] Univers 13:52:57 14:40:49 Visit Alexsanderrosangela [place] 350.1.13.10 it[place] of [place] [phone] [address] 2020-08-20 2020-08-20 Outpatient R [facility] [id number] Univers 14:20:00 14:20:00 QIABARBARA ity o f [facility] 2020-08-20 2020-08-20 Refill [facility] 1.2.840.114 [id number] Univers 00:00:00 00:00:00 Alexsanderrosangela Graceton 350.1.13.10 it[place] [phone] [address] 2020-08-14 2020-08-14 Emergency Ibikunlindsay, [facility] 1.2.840.114 [id number] Univers 11:41:00 15:20:00 Folusho F [place] 350.1.13.10 ity of [place] 4[place].2.[place] [phone] [facility] [address] 2020-08-14 2020-08-14 Emergency X [facility] ERT [id number] Univers 11:28:00 11:28:00 ity of [facility] 2020-07-30 2020-07-30 Transition Adele Olson 1.2.840.114 [id number] Univers 00:00:00 00:00:00 of Care Donnie Pedroy 350.1.13.10 ity of [place] 4.2.7.2.686 [place] [phone] [place] [address] 2020-07-30 2020-07-30 Transition Adele Olson 1.2.840.114 [id number] 00:00:00 00:00:00 of Care Donnie Pedroy 350.1.13.10 [place] [phone] [facility] 2020-07-27 2020-07-27 Outpatient X AL BLOCK [facility] [id number] Univers 14:07:00 14:07:00 [facility] Results Test Description Test Time Test Comments Results Result Comments Source AMYLASE 2023-03-25 12:56:45 Test Item Value Reference Range Interpretation Comme nts AMYLASE (test code = 2205) 111 U/L 28-100 H [id number] 12:56:45 Test Item Value Reference Range Interpretation Comments LIPASE (test code = 162 U/L 13-60 H UNLESS OTHERWISE 2057) INDICATED, ALL TESTING PERFORMED AT [facility] [address] [place] [address] DIRECTOR: Nick HUSSEIN KAMAR NUMBER [id number] CAP ACCREDITATION N O. [id number] POCT GLUCOSE (AUTOMATED)2023-03-19 16:42:31 Test Item Value Reference Range Interpretation Comments POCT GLU (test code = 1928155517) 202 mg/dL 70-110 H Lab Interpretation (test code = Abnormal 43839-3) [facility] GLUCOSE (AUTOMATED)2023-03-19 13:05:38 Test Item Value Reference Range Interpretation Comments POCT GLU (test code = 4175116802) 106 mg/dL 70-110 Lab Interpretation (test code = Normal 27107-7) [facility] GLUCOSE (AUTOMATED)2023-03-18 21:29:37 Test Item Value Reference Range Interpretation Comments POCT GLU (test code = 2041136517) 152 mg/dL 70-110 H Lab Interpretation (test code = Abnormal 40367-2) [facility] GLUCOSE (AUTOMATED)2023-03-18 16:45:34 Test Item Value Reference Range Interpretation Comments POCT GLU (test code = 9574406449) 160 mg/dL 70-110 H Lab Interpretation (test code = Abnormal 45101-4) [facility] GLUCOSE (AUTOMATED)2023-03-18 12:58:36 Test Item Value Reference Range Interpretation Comments POCT GLU (test code = 4947460728) 115 mg/dL 70-110 H Lab Interpretation (test code = Abnormal 64978-6) [facility] GLUCOSE (AUTOMATED)2023-03-18 01:20:08 Test Item Value Reference Range Interpretation Comments POCT GLU (test code = 6607702725) 167 mg/dL 70-110 H Lab Interpretation (test code = Abnormal 75046-6) [facility] GLUCOSE (AUTOMATED)2023-03-17 22:11:00 Test Item Value Reference Range Interpretation Comments POCT GLU (test code = 0245710030) 136 mg/dL 70-110 H Lab Interpretation (test code = Abnormal 04116-5) [facility] GLUCOSE (AUTOMATED)2023-03-17 17:05:10 Test Item Value Reference Range Interpretation Comments POCT GLU (test code = 4454488200) 118 mg/dL 70-110 H Lab Interpretation (test code = Abnormal 71714-4) [facility] GLUCOSE (AUTOMATED)2023-03-17 12:46:47 Test Item Value Reference Range Interpretation Comments POCT GLU (test code = 1026591524) 119 mg/dL 70-110 H Lab Interpretation (test code = Abnormal 39272-8) [facility]TOTAL CHOLESTEROL, TRIGLYCERIDES, HDL)2023-03-17 09:03:36 Test Item Value Reference Range Interpretation Comments CHOL (test code = 0689170953) 156 mg/dL 120-200 HDL (test code = 7171275406) 31 mg/dL >=40 L HDLC RATIO (test code = 4109414933) 5.0 <=5.0 TRIG (test code = 5537357400) 196 mg/dL 30-170 H LDL CHOL (test code = 55916-3) 86 mg/dL <=160 VLDL (test code = 4925325668) 39 mg/dL 5-60 Lab Interpretation (test code = Abnormal 55324-9) [facility] GLUCOSE (AUTOMATED)2023-03-17 01:29:22 Test Item Value Reference Range Interpretation Comments POCT GLU (test code = 3227482211) 106 mg/dL 70-110 Lab Interpretation (test code = Normal 21056-8) [facility] GLUCOSE (AUTOMATED)2023-03-16 22:17:54 Test Item Value Reference Range Interpretation Comments POCT GLU (test code = 5254666570) 132 mg/dL 70-110 H Lab Interpretation (test code = Abnormal 71975-2) [id number]57[facility] Test Item Value Reference Range Interpretation Comments TROPONIN I (test code = 0.001 ng/mL <=0.034 [id number]) ZAIDA (test code = ZAIDA) Reference (Normal) [...] biotin. Lab Interpretation Normal (test code = 56009-0) [id number] 15:54:03 Test Item Value Reference Range Interpretation Comments NT-proBNP (test code = 20 pg/mL <=125 6935288871) ZAIDA (test code = ZAIDA) Biotin has been reported to cause a negative bias, interpret results relative to patient's use of biotin. Lab Interpretation (test Normal code = 28870-0) [facility]. METABOLIC PANEL (03937)2023-03-16 15:47:26 Test Item Value Reference Range Interpretation Comments NA (test code = 136 mmol/L 135-145 4783939112) K (test code = 4.4 mmol/L 3.5-5.0 5294152524) CL (test code = 95 mmol/L 98-108 L 7912327551) CO2 TOTAL (test code = 33 mmol/L 23-31 H 0164728139) AGAP (test code = 8 2-16 9027507502) BUN (test code = 11 mg/dL 7-23 4455440372) GLUCOSE (test code = 247 mg/dL 70-110 H 9836521543) CREATININE (test code = 1.07 mg/dL 0.60-1.25 9113532748) TOTAL BILI (test code = 1.1 mg/dL 0.1-1.3 0408534135) CALCIUM (test code = 8.4 mg/dL 8.6-10.6 L 3773778156) T PROTEIN (test code = 7.5 g/dL 6.3-8.2 0333009026) ALBUMIN (test code = 3.8 g/dL 3.5-5.0 3902806194) ALK PHOS (test code = 121 U/L 34-122 0679122999) ALTv (test code = 29 U/L 5-50 1742-6) AST(SGOT) (test code = 28 U/L 13-40 8140256762) eGFR (test code = 72.0 mL/min/1.73m2 5464182526) ZAIDA (test code = ZAIDA) Association of [...] tests). Lab Interpretation Abnormal (test code = 54501-3) [facility] 15:46[facility]45 Test Item Value Reference Range Interpretation Comments LIPASE (test code = 4998576670) 140 U/L 0-220 Lab Interpretation (test code = Normal 63063-6) [facility] [id number] 15:28:41 Test Item Value Reference Range Interpretation Comments WBC (test code = 14.39 See_Comment H [Automated 3711-2) message] The system which generated this result transmit juan reference range : 4.20 - 10.70 10*3/?L. The reference range was not used to interpret this result as normal/abnormal . RBC (test code = 5.94 See_Comment H [Automated 809-8) message] The system which generated this result [...] RDW-SD (test code = 39.3 fL 38.5-51.6 79567-5) RDW-CV (test code = 14.6 % 12.1-15.4 788-0) PLT (test code = 246 See_Comment [Automated 847-3) message] The system which generated this result transmit juan reference range : 150 - 328 10*3/ ?L. The reference range was not u sed to interpret th is result as normal/abnormal . MPV (test code = 10.8 fL 9.8-13.0 97717-0) NRBC/100 WBC (test 0.0 See_Comment [Automat ed code = [id number]) message] The system which generated this result transmit juan reference range : 0.0 - 10.0 /100 WBCs. The reference range was not used to interpret this result as normal/abnormal . NRBC x10^3 (test code See_Comment [Auto mated = [id number]) message] The system which generated this result transmit juan reference range : 10*3/?L. The reference range was not used to interpret this result as normal/abnormal . GRAN MAT (NEUT) % 73.6 % (test code = 770-8) IMM GRAN % (test code 0.40 % = 1867602058) LYMPH % (test code = 12.4 % 736-9) MONO % (test code = 9.9 % 5905-5) EOS % (test code = 3.4 % 713-8) BASO % (test code = 0.3 % 706-2) GRAN MAT x10^3(ANC) 10.60 10*3/uL 1.99-6.95 H (test code = 2237089489) IMM GRAN x10^3 (test 0.06 10*3/uL 0.00-0.06 code = 3823963302) LYMPH x10^3 (test code 1.78 10*3/uL 1.09-3.23 = 731-0) MONO x10^3 (test code 1.42 10*3/uL 0.36-1.02 H = 742-7) EOS x10^3 (test code = 0.49 10*3/uL 0.06-0.53 711-2) BASO x10^3 (test code 0.04 10*3/uL 0.01-0.09 = 704-7) Lab Interpretation Abnormal (test code = 17651-5) [facility]-16 14:50:50 Test Item Value Reference Range Interpretation Comments POCT GLU (test code = 6394402954) 249 mg/dL 70-110 H Lab Interpretation (test code = Abnormal 51610-0) [facility], [id number] 09:03:37SPECIMEN NUMBER: [id number] CULTURE, URINE SPECIMEN NUMBER: [id number] SPECIMEN COMMENT: URINE SOURCE:URINE REPORT STATUS: FINAL FINAL REPORT: 06/08/2022 >100,000 CFU/ML UROGENITAL HOLLIS PRESENT NO COMMON PATHOGENS UNLESS OTHERWISE INDICATED, ALL TESTING [facility]MED [facility] [address] [place] [address] [employer]PERVIS[employer] 3RD SHIFT: JACINTA HAYDEN M.D. [place] NUMBER [id number] [facility] [place]. [id number], [id number] 00:00:00 Test Item Value Reference Range Interpretation Comments CULTURE, URINE (test SPECIMEN NUMBER: code = 75868) [id number] CULTURE, [id number] 00:00:00 Test Item Value Reference Range Interpretation Comments CULTURE, URINE (test SPECIMEN NUMBER: code = 55059) [id number] CULTURE, [id number] 00:00:00 Test Item Value Reference Range Interpretation Comments CULTURE, URINE (test SPECIMEN NUMBER: code = 15660) [id number] CULTURE, [id number] 00:00:00 Test Item Value Reference Range Interpretation Comments CULTURE, URINE (test SPECIMEN NUMBER: code = 16466) [id number] CULTURE, [id number] 00:00:00 Test Item Value Reference Range Interpretation Comments CULTURE, URINE (test SPECIMEN NUMBER: code = 66044) [id number] CULTURE, [id number] 00:00:00 Test Item Value Reference Range Interpretation Comments CULTURE, URINE (test SPECIMEN NUMBER: code = 96250) [id number] CULTURE, [id number] 00:00:00 Test Item Value Reference Range Interpretation Comments CULTURE, URINE (test SPECIMEN NUMBER: code = 60926) [id number] CULTURE, [id number] 00:00:00 Test Item Value Reference Range Interpretation Comments CULTURE, URINE (test SPECIMEN NUMBER: code = 37718) [id number] CULTURE, [id number] 00:00:00 Test Item Value Reference Range Interpretation Comments CULTURE, URINE (test SPECIMEN NUMBER: code = 24879) [id number] CULTURE, [id number] 00:00:00 Test Item Value Reference Range Interpretation Comments CULTURE, URINE (test SPECIMEN NUMBER: code = 75319) [id number] CULTURE, [id number] 00:00:00 Test Item Value Reference Range Interpretation Comments CULTURE, URINE (test SPECIMEN NUMBER: code = 93570) [id number] CULTURE, [id number] 00:00:00 Test Item Value Reference Range Interpretation Comments CULTURE, URINE (test SPECIMEN NUMBER: code = 81004) [id number] CULTURE, [id number] 00:00:00 Test Item Value Reference Range Interpretation Comments CULTURE, URINE (test SPECIMEN NUMBER: code = 30284) [id number] HEMOGLOBIN [id number] 07:18:13 Test Item Value Reference Range Interpretation Comments HEMOGLOBIN A1c (test 9.3 % 4.2-5.6 H [employer] AN DIABETES code = 66607) ASSOCIATION IDELIN[employer] FOR HGB A1C: PREDIABETES/INC REASED [...] UNLESS OTHERWIS E INDICATED, ALL TESTING PER [facility] ATCLINICAL PATH [facility] [place] [address] LABORATORY DIRE CTOR: JACINTA HAYDEN M.D. CLIA NUMBER [id number] [facility] [place]. [id number] HEMOGLOBIN [id number] 00:00:00 Test Item Value Reference Range Interpretation Comments HEMOGLOBIN A1c (test code = 66825) 9.3 % HEMOGLOBIN [id number] 00:00:00 Test Item Value Reference Range Interpretation Comments HEMOGLOBIN A1c (test code = 61333) 9.3 % HEMOGLOBIN [id number] 00:00:00 Test Item Value Reference Range Interpretation Comments HEMOGLOBIN A1c (test code = 75605) 9.3 % HEMOGLOBIN [id number] 00:00:00 Test Item Value Reference Range Interpretation Comments HEMOGLOBIN A1c (test code = 66584) 9.3 % HEMOGLOBIN [id number] 00:00:00 Test Item Value Reference Range Interpretation Comments HEMOGLOBIN A1c (test code = 97285) 9.3 % HEMOGLOBIN [id number] 00:00:00 Test Item Value Reference Range Interpretation Comments HEMOGLOBIN A1c (test code = 35221) 9.3 % HEMOGLOBIN [id number] 00:00:00 Test Item Value Reference Range Interpretation Comments HEMOGLOBIN A1c (test code = 72370) 9.3 % HEMOGLOBIN [id number] 00:00:00 Test Item Value Reference Range Interpretation Comments HEMOGLOBIN A1c (test code = 56061) 9.3 % HEMOGLOBIN [id number] 00:00:00 Test Item Value Reference Range Interpretation Comments HEMOGLOBIN A1c (test code = 99004) 9.3 % HEMOGLOBIN [id number] 00:00:00 Test Item Value Reference Range Interpretation Comments HEMOGLOBIN A1c (test code = 05604) 9.3 % HEMOGLOBIN [id number] 00:00:00 Test Item Value Reference Range Interpretation Comments HEMOGLOBIN A1c (test code = 35541) 9.3 % HEMOGLOBIN [id number] 00:00:00 Test Item Value Reference Range Interpretation Comments HEMOGLOBIN A1c (test code = 80938) 9.3 % HEMOGLOBIN [id number] 00:00:00 Test Item Value Reference Range Interpretation Comments HEMOGLOBIN A1c (test code = 96678) 9.3 % HEMOGLOBIN [id number] 00:00:00 Test Item Value Reference Range Interpretation Comments HEMOGLOBIN A1c (test code = 12971) 9.3 % HEMOGLOBIN [id number] 00:00:00 Test Item Value Reference Range Interpretation Comments HEMOGLOBIN A1c (test code = 50493) 9.3 % HEMOGLOBIN [id number] 00:00:00 Test Item Value Reference Range Interpretation Comments HEMOGLOBIN A1c (test code = 65645) 9.3 % HEMOGLOBIN [id number] 00:00:00 Test Item Value Reference Range Interpretation Comments HEMOGLOBIN A1c (test code = 39018) 9.3 % HEMOGLOBIN [id number] 00:00:00 Test Item Value Reference Range Interpretation Comments HEMOGLOBIN A1c (test code = 57359) 9.3 % HEMOGLOBIN [id number] 00:00:00 Test Item Value Reference Range Interpretation Comments HEMOGLOBIN A1c (test code = 85468) 9.3 % HEMOGLOBIN [id number] 00:00:00 Test Item Value Reference Range Interpretation Comments HEMOGLOBIN A1c (test code = 69621) 9.3 % HEMOGLOBIN [id number] 00:00:00 Test Item Value Reference Range Interpretation Comments HEMOGLOBIN A1c (test code = 56961) 9.3 % HEMOGLOBIN [id number] 00:00:00 Test Item Value Reference Range Interpretation Comments HEMOGLOBIN A1c (test code = 05196) 9.3 % SEDIMENTATION [id number] 00:00:00 Test Item Value Reference Range Interpretation Comments SEDIMENTATION RATE (test code = 5 MM/HOUR 1017) HEMOGLOBIN [id number] 00:00:00 Test Item Value Reference Range Interpretation Comments HEMOGLOBIN A1c (test code = 30474) 8.7 % HEMOGLOBIN [id number] 00:00:00 Test Item Value Reference Range Interpretation Comments HEMOGLOBIN A1c (test code = 75212) 8.7 % HEMOGLOBIN [id number] 00:00:00 Test Item Value Reference Range Interpretation Comments HEMOGLOBIN A1c (test code = 96102) 8.7 % LIPID [id number] 00:00:00 Test Item Value Reference Range Interpretation Comments CHOLESTEROL (test code = 2210) 241 MG/DL TRIGLYCERIDES (test code = 2232) 344 MG/DL HDL CHOLESTEROL (test code = 2220) 48 MG/DL CALC LDL CHOL (test code = 2237) 140 MG/DL RISK RATIO LDL/HDL (test code = 2.92 RATIO 2238) LIPID [id number] 00:00:00 Test Item Value Reference Range Interpretation Comments CHOLESTEROL (test code = 2210) 241 MG/DL TRIGLYCERIDES (test code = 2232) 344 MG/DL HDL CHOLESTEROL (test code = 2220) 48 MG/DL CALC LDL CHOL (test code = 2237) 140 MG/DL RISK RATIO LDL/HDL (test code = 2.92 RATIO 2238) COMPREHENSIVE METABOLIC [id number] 00:00:00 Test Item Value Reference Range Interpretation Comments GLUCOSE (test code = 2217) 255 MG/DL BUN (test code = 2208) 16 MG/DL CREATININE (test code = 2214) 1.27 MG/DL eGFR (2020 CKD-EPI) (test code 68 ML/MIN/1.73 = 43534) CALC BUN/CREAT (test code = 13 RATIO [...] code = 2219) 39 U/L COMPREHENSIVE METABOLIC [id number] 00:00:00 Test Item Value Reference Range Interpretation Comments GLUCOSE (test code = 2217) 255 MG/DL BUN (test code = 2208) 16 MG/DL CREATININE (test code = 2214) 1.27 MG/DL eGFR (2020 CKD-EPI) (test code 68 ML/MIN/1.73 = 95453) CALC BUN/CREAT (test code = 13 RATIO [...] (test code = 2219) 39 U/L URIC [id number] 00:00:00 Test Item Value Reference Range Interpretation Comments URIC ACID (test code = 2233) 5.4 MG/DL URIC [id number] 00:00:00 Test Item Value Reference Range Interpretation Comments URIC ACID (test code = 2233) 5.4 MG/DL MICROALBUMIN/CREATININE, RANDOM AND [id number] 00:00:00 Test Item Value Reference Range Interpretation Comments CREATININE, URINE, CONC. (test 88.0 MG/DL code = 2072) ALBUMIN, URINE, RANDOM (test code 19.5 MG/DL = 28937) CALC ALBUMIN/CREAT, RND (test code 222 MG/G = 54662) MICROALBUMIN/CREATININE, RANDOM AND [id number] 00:00:00 Test Item Value Reference Range Interpretation Comments CREATININE, URINE, CONC. (test 88.0 MG/DL code = 2072) ALBUMIN, URINE, RANDOM (test code 19.5 MG/DL = 43774) CALC ALBUMIN/CREAT, RND (test code 222 MG/G = 07432) SEDIMENTATION [id number] 00:00:00 Test Item Value Reference Range Interpretation Comments SEDIMENTATION RATE (test code = 5 MM/HOUR 1017) SEDIMENTATION [id number] 00:00:00 Test Item Value Reference Range Interpretation Comments SEDIMENTATION RATE (test code = 5 MM/HOUR 1017) HEMOGLOBIN [id number] 00:00:00 Test Item Value Reference Range Interpretation Comments HEMOGLOBIN A1c (test code = 50172) 8.7 % HEMOGLOBIN [id number] 00:00:00 Test Item Value Reference Range Interpretation Comments HEMOGLOBIN A1c (test code = 35067) 8.7 % LIPID [id number] 00:00:00 Test Item Value Reference Range Interpretation Comments CHOLESTEROL (test code = 2210) 241 MG/DL TRIGLYCERIDES (test code = 2232) 344 MG/DL HDL CHOLESTEROL (test code = 2220) 48 MG/DL CALC LDL CHOL (test code = 2237) 140 MG/DL RISK RATIO LDL/HDL (test code = 2.92 RATIO 2238) HEMOGLOBIN [id number] 00:00:00 Test Item Value Reference Range Interpretation Comments HEMOGLOBIN A1c (test code = 25847) 8.7 % HEMOGLOBIN [id number] 00:00:00 Test Item Value Reference Range Interpretation Comments HEMOGLOBIN A1c (test code = 72651) 8.7 % HEMOGLOBIN [id number] 00:00:00 Test Item Value Reference Range Interpretation Comments HEMOGLOBIN A1c (test code = 20793) 8.7 % LIPID [id number] 00:00:00 Test Item Value Reference Range Interpretation Comments CHOLESTEROL (test code = 2210) 241 MG/DL TRIGLYCERIDES (test code = 2232) 344 MG/DL HDL CHOLESTEROL (test code = 2220) 48 MG/DL CALC LDL CHOL (test code = 2237) 140 MG/DL RISK RATIO LDL/HDL (test code = 2.92 RATIO 2238) LIPID [id number] 00:00:00 Test Item Value Reference Range Interpretation Comments CHOLESTEROL (test code = 2210) 241 MG/DL TRIGLYCERIDES (test code = 2232) 344 MG/DL HDL CHOLESTEROL (test code = 2220) 48 MG/DL CALC LDL CHOL (test code = 2237) 140 MG/DL RISK RATIO LDL/HDL (test code = 2.92 RATIO 2238) COMPREHENSIVE METABOLIC [id number] 00:00:00 Test Item Value Reference Range Interpretation Comments GLUCOSE (test code = 2217) 255 MG/DL BUN (test code = 2208) 16 MG/DL CREATININE (test code = 2214) 1.27 MG/DL eGFR (2020 CKD-EPI) (test code 68 ML/MIN/1.73 = 14415) CALC BUN/CREAT (test code = 13 RATIO [...] code = 2219) 39 U/L COMPREHENSIVE METABOLIC [id number] 00:00:00 Test Item Value Reference Range Interpretation Comments GLUCOSE (test code = 2217) 255 MG/DL BUN (test code = 2208) 16 MG/DL CREATININE (test code = 2214) 1.27 MG/DL eGFR (2020 CKD-EPI) (test code 68 ML/MIN/1.73 = 26685) CALC BUN/CREAT (test code = 13 RATIO [...] (test code = 2219) 39 U/L URIC [id number] 00:00:00 Test Item Value Reference Range Interpretation Comments URIC ACID (test code = 2233) 5.4 MG/DL URIC [id number] 00:00:00 Test Item Value Reference Range Interpretation Comments URIC ACID (test code = 2233) 5.4 MG/DL MICROALBUMIN/CREATININE, RANDOM AND [id number] 00:00:00 Test Item Value Reference Range Interpretation Comments CREATININE, URINE, CONC. (test 88.0 MG/DL code = 2072) ALBUMIN, URINE, RANDOM (test code 19.5 MG/DL = 59189) CALC ALBUMIN/CREAT, RND (test code 222 MG/G = 04331) MICROALBUMIN/CREATININE, RANDOM AND [id number] 00:00:00 Test Item Value Reference Range Interpretation Comments CREATININE, URINE, CONC. (test 88.0 MG/DL code = 2072) ALBUMIN, URINE, RANDOM (test code 19.5 MG/DL = 93612) CALC ALBUMIN/CREAT, RND (test code 222 MG/G = 88800) SEDIMENTATION [id number] 00:00:00 Test Item Value Reference Range Interpretation Comments SEDIMENTATION RATE (test code = 5 MM/HOUR 1017) SEDIMENTATION [id number] 00:00:00 Test Item Value Reference Range Interpretation Comments SEDIMENTATION RATE (test code = 5 MM/HOUR 1017) COMPREHENSIVE METABOLIC [id number] 00:00:00 Test Item Value Reference Range Interpretation Comments GLUCOSE (test code = 2217) 255 MG/DL BUN (test code = 2208) 16 MG/DL CREATININE (test code = 2214) 1.27 MG/DL eGFR (2020 CKD-EPI) (test code 68 ML/MIN/1.73 = 52839) CALC BUN/CREAT (test code = 13 RATIO [...] (test code = 2219) 39 U/L URIC [id number] 00:00:00 Test Item Value Reference Range Interpretation Comments URIC ACID (test code = 2233) 5.4 MG/DL MICROALBUMIN/CREATININE, RANDOM AND [id number] 00:00:00 Test Item Value Reference Range Interpretation Comments CREATININE, URINE, CONC. (test 88.0 MG/DL code = 2072) ALBUMIN, URINE, RANDOM (test code 19.5 MG/DL = 18748) CALC ALBUMIN/CREAT, RND (test code 222 MG/G = 07259) SEDIMENTATION [id number] 00:00:00 Test Item Value Reference Range Interpretation Comments SEDIMENTATION RATE (test code = 5 MM/HOUR 1017) HEMOGLOBIN [id number] 00:00:00 Test Item Value Reference Range Interpretation Comments HEMOGLOBIN A1c (test code = 60672) 8.7 % HEMOGLOBIN [id number] 00:00:00 Test Item Value Reference Range Interpretation Comments HEMOGLOBIN A1c (test code = 36976) 8.7 % HEMOGLOBIN [id number] 00:00:00 Test Item Value Reference Range Interpretation Comments HEMOGLOBIN A1c (test code = 97380) 8.7 % LIPID [id number] 00:00:00 Test Item Value Reference Range Interpretation Comments CHOLESTEROL (test code = 2210) 241 MG/DL TRIGLYCERIDES (test code = 2232) 344 MG/DL HDL CHOLESTEROL (test code = 2220) 48 MG/DL CALC LDL CHOL (test code = 2237) 140 MG/DL RISK RATIO LDL/HDL (test code = 2.92 RATIO 2238) LIPID [id number] 00:00:00 Test Item Value Reference Range Interpretation Comments CHOLESTEROL (test code = 2210) 241 MG/DL TRIGLYCERIDES (test code = 2232) 344 MG/DL HDL CHOLESTEROL (test code = 2220) 48 MG/DL CALC LDL CHOL (test code = 2237) 140 MG/DL RISK RATIO LDL/HDL (test code = 2.92 RATIO 2238) COMPREHENSIVE METABOLIC [id number] 00:00:00 Test Item Value Reference Range Interpretation Comments GLUCOSE (test code = 2217) 255 MG/DL BUN (test code = 2208) 16 MG/DL CREATININE (test code = 2214) 1.27 MG/DL eGFR (2020 CKD-EPI) (test code 68 ML/MIN/1.73 = 98036) CALC BUN/CREAT (test code = 13 RATIO [...] code = 2219) 39 U/L COMPREHENSIVE METABOLIC [id number] 00:00:00 Test Item Value Reference Range Interpretation Comments GLUCOSE (test code = 2217) 255 MG/DL BUN (test code = 2208) 16 MG/DL CREATININE (test code = 2214) 1.27 MG/DL eGFR (2020 CKD-EPI) (test code 68 ML/MIN/1.73 = 76089) CALC BUN/CREAT (test code = 13 RATIO [...] (test code = 2219) 39 U/L URIC [id number] 00:00:00 Test Item Value Reference Range Interpretation Comments URIC ACID (test code = 2233) 5.4 MG/DL URIC [id number] 00:00:00 Test Item Value Reference Range Interpretation Comments URIC ACID (test code = 2233) 5.4 MG/DL MICROALBUMIN/CREATININE, RANDOM AND [id number] 00:00:00 Test Item Value Reference Range Interpretation Comments CREATININE, URINE, CONC. (test 88.0 MG/DL code = 2072) ALBUMIN, URINE, RANDOM (test code 19.5 MG/DL = 23077) CALC ALBUMIN/CREAT, RND (test code 222 MG/G = 63929) MICROALBUMIN/CREATININE, RANDOM AND [id number] 00:00:00 Test Item Value Reference Range Interpretation Comments CREATININE, URINE, CONC. (test 88.0 MG/DL code = 2072) ALBUMIN, URINE, RANDOM (test code 19.5 MG/DL = 99562) CALC ALBUMIN/CREAT, RND (test code 222 MG/G = 95612) SEDIMENTATION [id number] 00:00:00 Test Item Value Reference Range Interpretation Comments SEDIMENTATION RATE (test code = 5 MM/HOUR 1017) SEDIMENTATION [id number] 00:00:00 Test Item Value Reference Range Interpretation Comments SEDIMENTATION RATE (test code = 5 MM/HOUR 1017) HEMOGLOBIN [id number] 00:00:00 Test Item Value Reference Range Interpretation Comments HEMOGLOBIN A1c (test code = 44729) 8.7 % HEMOGLOBIN [id number] 00:00:00 Test Item Value Reference Range Interpretation Comments HEMOGLOBIN A1c (test code = 94620) 8.7 % HEMOGLOBIN [id number] 00:00:00 Test Item Value Reference Range Interpretation Comments HEMOGLOBIN A1c (test code = 54127) 8.7 % LIPID [id number] 00:00:00 Test Item Value Reference Range Interpretation Comments CHOLESTEROL (test code = 2210) 241 MG/DL TRIGLYCERIDES (test code = 2232) 344 MG/DL HDL CHOLESTEROL (test code = 2220) 48 MG/DL CALC LDL CHOL (test code = 2237) 140 MG/DL RISK RATIO LDL/HDL (test code = 2.92 RATIO 2238) LIPID [id number] 00:00:00 Test Item Value Reference Range Interpretation Comments CHOLESTEROL (test code = 2210) 241 MG/DL TRIGLYCERIDES (test code = 2232) 344 MG/DL HDL CHOLESTEROL (test code = 2220) 48 MG/DL CALC LDL CHOL (test code = 2237) 140 MG/DL RISK RATIO LDL/HDL (test code = 2.92 RATIO 2238) COMPREHENSIVE METABOLIC [id number] 00:00:00 Test Item Value Reference Range Interpretation Comments GLUCOSE (test code = 2217) 255 MG/DL BUN (test code = 2208) 16 MG/DL CREATININE (test code = 2214) 1.27 MG/DL eGFR (2020 CKD-EPI) (test code 68 ML/MIN/1.73 = 29970) CALC BUN/CREAT (test code = 13 RATIO [...] code = 2219) 39 U/L COMPREHENSIVE METABOLIC [id number] 00:00:00 Test Item Value Reference Range Interpretation Comments GLUCOSE (test code = 2217) 255 MG/DL BUN (test code = 2208) 16 MG/DL CREATININE (test code = 2214) 1.27 MG/DL eGFR (2020 CKD-EPI) (test code 68 ML/MIN/1.73 = 84275) CALC BUN/CREAT (test code = 13 RATIO [...] (test code = 2219) 39 U/L URIC [id number] 00:00:00 Test Item Value Reference Range Interpretation Comments URIC ACID (test code = 2233) 5.4 MG/DL URIC [id number] 00:00:00 Test Item Value Reference Range Interpretation Comments URIC ACID (test code = 2233) 5.4 MG/DL MICROALBUMIN/CREATININE, RANDOM AND [id number] 00:00:00 Test Item Value Reference Range Interpretation Comments CREATININE, URINE, CONC. (test 88.0 MG/DL code = 2072) ALBUMIN, URINE, RANDOM (test code 19.5 MG/DL = 21296) CALC ALBUMIN/CREAT, RND (test code 222 MG/G = 15992) MICROALBUMIN/CREATININE, RANDOM AND [id number] 00:00:00 Test Item Value Reference Range Interpretation Comments CREATININE, URINE, CONC. (test 88.0 MG/DL code = 2072) ALBUMIN, URINE, RANDOM (test code 19.5 MG/DL = 37108) CALC ALBUMIN/CREAT, RND (test code 222 MG/G = 15769) SEDIMENTATION [id number] 00:00:00 Test Item Value Reference Range Interpretation Comments SEDIMENTATION RATE (test code = 5 MM/HOUR 1017) SEDIMENTATION [id number] 00:00:00 Test Item Value Reference Range Interpretation Comments SEDIMENTATION RATE (test code = 5 MM/HOUR 1017) HEMOGLOBIN [id number] 00:00:00 Test Item Value Reference Range Interpretation Comments HEMOGLOBIN A1c (test code = 56437) 8.7 % HEMOGLOBIN [id number] 00:00:00 Test Item Value Reference Range Interpretation Comments HEMOGLOBIN A1c (test code = 16584) 8.7 % HEMOGLOBIN [id number] 00:00:00 Test Item Value Reference Range Interpretation Comments HEMOGLOBIN A1c (test code = 06613) 8.7 % LIPID [id number] 00:00:00 Test Item Value Reference Range Interpretation Comments CHOLESTEROL (test code = 2210) 241 MG/DL TRIGLYCERIDES (test code = 2232) 344 MG/DL HDL CHOLESTEROL (test code = 2220) 48 MG/DL CALC LDL CHOL (test code = 2237) 140 MG/DL RISK RATIO LDL/HDL (test code = 2.92 RATIO 2238) LIPID [id number] 00:00:00 Test Item Value Reference Range Interpretation Comments CHOLESTEROL (test code = 2210) 241 MG/DL TRIGLYCERIDES (test code = 2232) 344 MG/DL HDL CHOLESTEROL (test code = 2220) 48 MG/DL CALC LDL CHOL (test code = 2237) 140 MG/DL RISK RATIO LDL/HDL (test code = 2.92 RATIO 2238) COMPREHENSIVE METABOLIC [id number] 00:00:00 Test Item Value Reference Range Interpretation Comments GLUCOSE (test code = 2217) 255 MG/DL BUN (test code = 2208) 16 MG/DL CREATININE (test code = 2214) 1.27 MG/DL eGFR (2020 CKD-EPI) (test code 68 ML/MIN/1.73 = 92426) CALC BUN/CREAT (test code = 13 RATIO [...] code = 2219) 39 U/L COMPREHENSIVE METABOLIC [id number] 00:00:00 Test Item Value Reference Range Interpretation Comments GLUCOSE (test code = 2217) 255 MG/DL BUN (test code = 2208) 16 MG/DL CREATININE (test code = 2214) 1.27 MG/DL eGFR (2020 CKD-EPI) (test code 68 ML/MIN/1.73 = 19783) CALC BUN/CREAT (test code = 13 RATIO [...] (test code = 2219) 39 U/L URIC [id number] 00:00:00 Test Item Value Reference Range Interpretation Comments URIC ACID (test code = 2233) 5.4 MG/DL URIC [id number] 00:00:00 Test Item Value Reference Range Interpretation Comments URIC ACID (test code = 2233) 5.4 MG/DL MICROALBUMIN/CREATININE, RANDOM AND [id number] 00:00:00 Test Item Value Reference Range Interpretation Comments CREATININE, URINE, CONC. (test 88.0 MG/DL code = 2072) ALBUMIN, URINE, RANDOM (test code 19.5 MG/DL = 79414) CALC ALBUMIN/CREAT, RND (test code 222 MG/G = 39585) MICROALBUMIN/CREATININE, RANDOM AND [id number] 00:00:00 Test Item Value Reference Range Interpretation Comments CREATININE, URINE, CONC. (test 88.0 MG/DL code = 2072) ALBUMIN, URINE, RANDOM (test code 19.5 MG/DL = 98055) CALC ALBUMIN/CREAT, RND (test code 222 MG/G = 47100) SEDIMENTATION [id number] 00:00:00 Test Item Value Reference Range Interpretation Comments SEDIMENTATION RATE (test code = 5 MM/HOUR 1017) SEDIMENTATION [id number] 00:00:00 Test Item Value Reference Range Interpretation Comments SEDIMENTATION RATE (test code = 5 MM/HOUR 1017) HEMOGLOBIN [id number] 00:00:00 Test Item Value Reference Range Interpretation Comments HEMOGLOBIN A1c (test code = 71799) 8.7 % HEMOGLOBIN [id number] 00:00:00 Test Item Value Reference Range Interpretation Comments HEMOGLOBIN A1c (test code = 16715) 8.7 % LIPID [id number] 00:00:00 Test Item Value Reference Range Interpretation Comments CHOLESTEROL (test code = 2210) 241 MG/DL TRIGLYCERIDES (test code = 2232) 344 MG/DL HDL CHOLESTEROL (test code = 2220) 48 MG/DL CALC LDL CHOL (test code = 2237) 140 MG/DL RISK RATIO LDL/HDL (test code = 2.92 RATIO 2238) COMPREHENSIVE METABOLIC [id number] 00:00:00 Test Item Value Reference Range Interpretation Comments GLUCOSE (test code = 2217) 255 MG/DL BUN (test code = 2208) 16 MG/DL CREATININE (test code = 2214) 1.27 MG/DL eGFR (2020 CKD-EPI) (test code 68 ML/MIN/1.73 = 50938) CALC BUN/CREAT (test code = 13 RATIO [...] (test code = 2219) 39 U/L URIC [id number] 00:00:00 Test Item Value Reference Range Interpretation Comments URIC ACID (test code = 2233) 5.4 MG/DL MICROALBUMIN/CREATININE, RANDOM AND [id number] 00:00:00 Test Item Value Reference Range Interpretation Comments CREATININE, URINE, CONC. (test 88.0 MG/DL code = 207) ALBUMIN, URINE, RANDOM (test code 19.5 MG/DL = 96943) CALC ALBUMIN/CREAT, RND (test code 222 MG/G = 81911) SEDIMENTATION [id number] 00:00:00 Test Item Value Reference Range Interpretation Comments SEDIMENTATION RATE (test code = 5 MM/HOUR 1017) HEMOGLOBIN [id number] 00:00:00 Test Item Value Reference Range Interpretation Comments HEMOGLOBIN A1c (test code = 01672) 8.7 % HEMOGLOBIN [id number] 00:00:00 Test Item Value Reference Range Interpretation Comments HEMOGLOBIN A1c (test code = 17754) 8.7 % LIPID [id number] 00:00:00 Test Item Value Reference Range Interpretation Comments CHOLESTEROL (test code = 2210) 241 MG/DL TRIGLYCERIDES (test code = 2232) 344 MG/DL HDL CHOLESTEROL (test code = 2220) 48 MG/DL CALC LDL CHOL (test code = 2237) 140 MG/DL RISK RATIO LDL/HDL (test code = 2.92 RATIO 2238) COMPREHENSIVE METABOLIC [id number] 00:00:00 Test Item Value Reference Range Interpretation Comments GLUCOSE (test code = 2217) 255 MG/DL BUN (test code = 2208) 16 MG/DL CREATININE (test code = 2214) 1.27 MG/DL eGFR (2020 CKD-EPI) (test code 68 ML/MIN/1.73 = 95883) CALC BUN/CREAT (test code = 13 RATIO 5) SODIUM (test code = 223) 139 MEQ/L POTASSIUM (test code = 2228) 4.6 MEQ/L CHLORIDE (test code = 2215) 95 MEQ/L CARBON DIOXIDE (test code = 32 MEQ/L 2205) CALCIUM (test code = 220) 9.9 MG/DL PROTEIN, TOTAL (test code = [...] (test code = 2219) 39 U/L URIC [id number] 00:00:00 Test Item Value Reference Range Interpretation Comments URIC ACID (test code = 2233) 5.4 MG/DL MICROALBUMIN/CREATININE, RANDOM AND [id number] 00:00:00 Test Item Value Reference Range Interpretation Comments CREATININE, URINE, CONC. (test 88.0 MG/DL code = 207) ALBUMIN, URINE, RANDOM (test code 19.5 MG/DL = 78063) CALC ALBUMIN/CREAT, RND (test code 222 MG/G = 07295) SEDIMENTATION [id number] 00:00:00 Test Item Value Reference Range Interpretation Comments SEDIMENTATION RATE (test code = 5 MM/HOUR 1017) HEMOGLOBIN [id number] 00:00:00 Test Item Value Reference Range Interpretation Comments HEMOGLOBIN A1c (test code = 10201) 8.7 % HEMOGLOBIN [id number] 00:00:00 Test Item Value Reference Range Interpretation Comments HEMOGLOBIN A1c (test code = 16216) 8.7 % HEMOGLOBIN [id number] 00:00:00 Test Item Value Reference Range Interpretation Comments HEMOGLOBIN A1c (test code = 22199) 8.7 % LIPID [id number] 00:00:00 Test Item Value Reference Range Interpretation Comments CHOLESTEROL (test code = 2210) 241 MG/DL TRIGLYCERIDES (test code = 2232) 344 MG/DL HDL CHOLESTEROL (test code = 2220) 48 MG/DL CALC LDL CHOL (test code = 2237) 140 MG/DL RISK RATIO LDL/HDL (test code = 2.92 RATIO 2238) LIPID [id number] 00:00:00 Test Item Value Reference Range Interpretation Comments CHOLESTEROL (test code = 2210) 241 MG/DL TRIGLYCERIDES (test code = 2232) 344 MG/DL HDL CHOLESTEROL (test code = 2220) 48 MG/DL CALC LDL CHOL (test code = 2237) 140 MG/DL RISK RATIO LDL/HDL (test code = 2.92 RATIO 2238) COMPREHENSIVE METABOLIC [id number] 00:00:00 Test Item Value Reference Range Interpretation Comments GLUCOSE (test code = 2217) 255 MG/DL BUN (test code = 2208) 16 MG/DL CREATININE (test code = 2214) 1.27 MG/DL eGFR (2020 CKD-EPI) (test code 68 ML/MIN/1.73 = 57811) CALC BUN/CREAT (test code = 13 RATIO [...] = 0.4 MG/DL 2207) ALKALINE PHOSPHATASE (test 136 U/L code = 2204) AST (test code = 2218) 19 U/L ALT (test code = 2219) 39 U/L COMPREHENSIVE METABOLIC [id number] 00:00:00 Test Item Value Reference Range Interpretation Comments GLUCOSE (test code = 2217) 255 MG/DL BUN (test code = 2208) 16 MG/DL CREATININE (test code = 2214) 1.27 MG/DL eGFR (2020 CKD-EPI) (test code 68 ML/MIN/1.73 = 88431) CALC BUN/CREAT (test code = 13 RATIO [...] (test code = 2219) 39 U/L URIC [id number] 00:00:00 Test Item Value Reference Range Interpretation Comments URIC ACID (test code = 2233) 5.4 MG/DL URIC [id number] 00:00:00 Test Item Value Reference Range Interpretation Comments URIC ACID (test code = 2233) 5.4 MG/DL MICROALBUMIN/CREATININE, RANDOM AND [id number] 00:00:00 Test Item Value Reference Range Interpretation Comments CREATININE, URINE, CONC. (test 88.0 MG/DL code = 2072) ALBUMIN, URINE, RANDOM (test code 19.5 MG/DL = 03350) CALC ALBUMIN/CREAT, RND (test code 222 MG/G = 94015) MICROALBUMIN/CREATININE, RANDOM AND [id number] 00:00:00 Test Item Value Reference Range Interpretation Comments CREATININE, URINE, CONC. (test 88.0 MG/DL code = 2072) ALBUMIN, URINE, RANDOM (test code 19.5 MG/DL = 15089) CALC ALBUMIN/CREAT, RND (test code 222 MG/G = 44529) SEDIMENTATION [id number] 00:00:00 Test Item Value Reference Range Interpretation Comments SEDIMENTATION RATE (test code = 5 MM/HOUR 1017) HEMOGLOBIN [id number] 00:00:00 Test Item Value Reference Range Interpretation Comments HEMOGLOBIN A1c (test code = 35103) 7.7 % HEMOGLOBIN [id number] 00:00:00 Test Item Value Reference Range Interpretation Comments HEMOGLOBIN A1c (test code = 28351) 7.7 % HEMOGLOBIN [id number] 00:00:00 Test Item Value Reference Range Interpretation Comments HEMOGLOBIN A1c (test code = 01199) 7.7 % LIPID [id number] 00:00:00 Test Item Value Reference Range Interpretation Comments CHOLESTEROL (test code = 2210) 167 MG/DL TRIGLYCERIDES (test code = 2232) 263 MG/DL HDL CHOLESTEROL (test code = 2220) 40 MG/DL CALC LDL CHOL (test code = 2237) 92 MG/DL RISK RATIO LDL/HDL (test code = 2.30 RATIO 2238) LIPID [id number] 00:00:00 Test Item Value Reference Range Interpretation Comments CHOLESTEROL (test code = 2210) 167 MG/DL TRIGLYCERIDES (test code = 2232) 263 MG/DL HDL CHOLESTEROL (test code = 2220) 40 MG/DL CALC LDL CHOL (test code = 2237) 92 MG/DL RISK RATIO LDL/HDL (test code = 2.30 RATIO 2238) CBC W/AUTO [id number] 00:00:00 Test Item Value Reference Range Interpretation [...] NUCLEATED RBCS (test code = 0.00 K/UL 01451) CBC W/AUTO [id number] 00:00:00 Test Item Value Reference Range Interpretation [...] NUCLEATED RBCS (test code = 0.00 K/UL 30587) CBC W/AUTO [id number] 00:00:00 Test Item Value Reference Range Interpretation [...] NUCLEATED RBCS (test code = 0.00 K/UL 95189) COMPREHENSIVE METABOLIC [id number] 00:00:00 Test Item Value Reference Range Interpretation Comments GLUCOSE (test code = 2217) 264 MG/DL BUN (test code = 2208) 12 MG/DL CREATININE (test code = 2214) 1.13 MG/DL eGFR AMER. (test code 86 ML/MIN/1.73 = 34222) eGFR NON- AMER. (test 74 ML/MIN/1.73 code = 91083) CALC BUN/CREAT (test code = 11 RATIO [...] code = 2219) 35 U/L COMPREHENSIVE METABOLIC [id number] 00:00:00 Test Item Value Reference Range Interpretation Comments GLUCOSE (test code = 2217) 264 MG/DL BUN (test code = 2208) 12 MG/DL CREATININE (test code = 2214) 1.13 MG/DL eGFR AMER. (test code 86 ML/MIN/1.73 = 22844) eGFR NON- AMER. (test 74 ML/MIN/1.73 code = 62434) CALC BUN/CREAT (test code = 11 RATIO 2235) SODIUM (test code = 2231) 138 MEQ/L POTASSIUM (test code = 2228) 4.6 MEQ/L CHLORIDE (test code = 2215) 97 MEQ/L CARBON DIOXIDE (test code = 27 MEQ/L 6) CALCIUM (test code = 2209) 9.3 MG/DL [...] ALT (test code = 2219) 35 U/L [id number] 00:00:00 Test Item Value Reference Range Interpretation Comments TSH, THIRD GENERATION (test code 0.949 UIU/ML = 2821) [id number] 00:00:00 Test Item Value Reference Range Interpretation Comments TSH, THIRD GENERATION (test code 0.949 UIU/ML = 2821) [id number] 00:00:00 Test Item Value Reference Range Interpretation Comments TSH, THIRD GENERATION (test code 0.949 UIU/ML = 2821) HEMOGLOBIN [id number] 00:00:00 Test Item Value Reference Range Interpretation Comments HEMOGLOBIN A1c (test code = 57384) 7.7 % HEMOGLOBIN [id number] 00:00:00 Test Item Value Reference Range Interpretation Comments HEMOGLOBIN A1c (test code = 94951) 7.7 % LIPID [id number] 00:00:00 Test Item Value Reference Range Interpretation Comments CHOLESTEROL (test code = 2210) 167 MG/DL TRIGLYCERIDES (test code = 2232) 263 MG/DL HDL CHOLESTEROL (test code = 2220) 40 MG/DL CALC LDL CHOL (test code = 2237) 92 MG/DL RISK RATIO LDL/HDL (test code = 2.30 RATIO 2238) HEMOGLOBIN [id number] 00:00:00 Test Item Value Reference Range Interpretation Comments HEMOGLOBIN A1c (test code = 15793) 7.7 % HEMOGLOBIN [id number] 00:00:00 Test Item Value Reference Range Interpretation Comments HEMOGLOBIN A1c (test code = 24088) 7.7 % HEMOGLOBIN [id number] 00:00:00 Test Item Value Reference Range Interpretation Comments HEMOGLOBIN A1c (test code = 35634) 7.7 % CBC W/AUTO [id number] 00:00:00 Test Item Value Reference Range Interpretation [...] NUCLEATED RBCS (test code = 0.00 K/UL 23819) LIPID [id number] 00:00:00 Test Item Value Reference Range Interpretation Comments CHOLESTEROL (test code = 2210) 167 MG/DL TRIGLYCERIDES (test code = 2232) 263 MG/DL HDL CHOLESTEROL (test code = 2220) 40 MG/DL CALC LDL CHOL (test code = 2237) 92 MG/DL RISK RATIO LDL/HDL (test code = 2.30 RATIO 2238) LIPID [id number] 00:00:00 Test Item Value Reference Range Interpretation Comments CHOLESTEROL (test code = 2210) 167 MG/DL TRIGLYCERIDES (test code = 2232) 263 MG/DL HDL CHOLESTEROL (test code = 2220) 40 MG/DL CALC LDL CHOL (test code = 2237) 92 MG/DL RISK RATIO LDL/HDL (test code = 2.30 RATIO 2238) CBC W/AUTO [id number] 00:00:00 Test Item Value Reference Range Interpretation [...] NUCLEATED RBCS (test code = 0.00 K/UL 23962) CBC W/AUTO [id number] 00:00:00 Test Item Value Reference Range Interpretation [...] NUCLEATED RBCS (test code = 0.00 K/UL 71053) CBC W/AUTO [id number] 00:00:00 Test Item Value Reference Range Interpretation [...] NUCLEATED RBCS (test code = 0.00 K/UL 00107) CBC W/AUTO [id number] 00:00:00 Test Item Value Reference Range Interpretation [...] NUCLEATED RBCS (test code = 0.00 K/UL 58213) COMPREHENSIVE METABOLIC [id number] 00:00:00 Test Item Value Reference Range Interpretation Comments GLUCOSE (test code = 2217) 264 MG/DL BUN (test code = 2208) 12 MG/DL CREATININE (test code = 2214) 1.13 MG/DL eGFR AMER. (test code 86 ML/MIN/1.73 = 47889) eGFR NON- AMER. (test 74 ML/MIN/1.73 code = 71775) CALC BUN/CREAT (test code = 11 RATIO [...] code = 2219) 35 U/L COMPREHENSIVE METABOLIC [id number] 00:00:00 Test Item Value Reference Range Interpretation Comments GLUCOSE (test code = 2217) 264 MG/DL BUN (test code = 2208) 12 MG/DL CREATININE (test code = 2214) 1.13 MG/DL eGFR AMER. (test code 86 ML/MIN/1.73 = 10248) eGFR NON- AMER. (test 74 ML/MIN/1.73 code = 31813) CALC BUN/CREAT (test code = 11 RATIO [...] ALT (test code = 2219) 35 U/L [id number] 00:00:00 Test Item Value Reference Range Interpretation Comments TSH, THIRD GENERATION (test code 0.949 UIU/ML = 2821) [id number] 00:00:00 Test Item Value Reference Range Interpretation Comments TSH, THIRD GENERATION (test code 0.949 UIU/ML = 2821) [id number] 00:00:00 Test Item Value Reference Range Interpretation Comments TSH, THIRD GENERATION (test code 0.949 UIU/ML = 2821) COMPREHENSIVE METABOLIC [id number] 00:00:00 Test Item Value Reference Range Interpretation Comments GLUCOSE (test code = 2217) 264 MG/DL BUN (test code = 2208) 12 MG/DL CREATININE (test code = 2214) 1.13 MG/DL eGFR AMER. (test code 86 ML/MIN/1.73 = 19028) eGFR NON- AMER. (test 74 ML/MIN/1.73 code = 95591) CALC BUN/CREAT (test code = 11 RATIO [...] ALT (test code = 2219) 35 U/L [id number] 00:00:00 Test Item Value Reference Range Interpretation Comments TSH, THIRD GENERATION (test code 0.949 UIU/ML = 2821) [id number] 00:00:00 Test Item Value Reference Range Interpretation Comments TSH, THIRD GENERATION (test code 0.949 UIU/ML = 2821) HEMOGLOBIN [id number] 00:00:00 Test Item Value Reference Range Interpretation Comments HEMOGLOBIN A1c (test code = 42654) 7.7 % HEMOGLOBIN [id number] 00:00:00 Test Item Value Reference Range Interpretation Comments HEMOGLOBIN A1c (test code = 18296) 7.7 % HEMOGLOBIN [id number] 00:00:00 Test Item Value Reference Range Interpretation Comments HEMOGLOBIN A1c (test code = 17084) 7.7 % LIPID [id number] 00:00:00 Test Item Value Reference Range Interpretation Comments CHOLESTEROL (test code = 2210) 167 MG/DL TRIGLYCERIDES (test code = 2232) 263 MG/DL HDL CHOLESTEROL (test code = 2220) 40 MG/DL CALC LDL CHOL (test code = 2237) 92 MG/DL RISK RATIO LDL/HDL (test code = 2.30 RATIO 8) LIPID [id number] 00:00:00 Test Item Value Reference Range Interpretation Comments CHOLESTEROL (test code = 2210) 167 MG/DL TRIGLYCERIDES (test code = 2232) 263 MG/DL HDL CHOLESTEROL (test code = 2220) 40 MG/DL CALC LDL CHOL (test code = 2237) 92 MG/DL RISK RATIO LDL/HDL (test code = 2.30 RATIO 2238) CBC W/AUTO [id number] 00:00:00 Test Item Value Reference Range Interpretation [...] NUCLEATED RBCS (test code = 0.00 K/UL 98503) CBC W/AUTO [id number] 00:00:00 Test Item Value Reference Range Interpretation [...] NUCLEATED RBCS (test code = 0.00 K/UL 37778) CBC W/AUTO [id number] 00:00:00 Test Item Value Reference Range Interpretation [...] NUCLEATED RBCS (test code = 0.00 K/UL 26730) COMPREHENSIVE METABOLIC [id number] 00:00:00 Test Item Value Reference Range Interpretation Comments GLUCOSE (test code = 2217) 264 MG/DL BUN (test code = 2208) 12 MG/DL CREATININE (test code = 2214) 1.13 MG/DL eGFR AMER. (test code 86 ML/MIN/1.73 = 04013) eGFR NON- AMER. (test 74 ML/MIN/1.73 code = 65288) CALC BUN/CREAT (test code = 11 RATIO [...] code = 2219) 35 U/L COMPREHENSIVE METABOLIC [id number] 00:00:00 Test Item Value Reference Range Interpretation Comments GLUCOSE (test code = 2217) 264 MG/DL BUN (test code = 2208) 12 MG/DL CREATININE (test code = 2214) 1.13 MG/DL eGFR AMER. (test code 86 ML/MIN/1.73 = 68596) eGFR NON- AMER. (test 74 ML/MIN/1.73 code = 90544) CALC BUN/CREAT (test code = 11 RATIO [...] ALT (test code = 2219) 35 U/L [id number] 00:00:00 Test Item Value Reference Range Interpretation Comments TSH, THIRD GENERATION (test code 0.949 UIU/ML = 2821) [id number] 00:00:00 Test Item Value Reference Range Interpretation Comments TSH, THIRD GENERATION (test code 0.949 UIU/ML = 2821) [id number] 00:00:00 Test Item Value Reference Range Interpretation Comments TSH, THIRD GENERATION (test code 0.949 UIU/ML = 2821) HEMOGLOBIN [id number] 00:00:00 Test Item Value Reference Range Interpretation Comments HEMOGLOBIN A1c (test code = 17516) 7.7 % HEMOGLOBIN [id number] 00:00:00 Test Item Value Reference Range Interpretation Comments HEMOGLOBIN A1c (test code = 93135) 7.7 % HEMOGLOBIN [id number] 00:00:00 Test Item Value Reference Range Interpretation Comments HEMOGLOBIN A1c (test code = 82272) 7.7 % LIPID [id number] 00:00:00 Test Item Value Reference Range Interpretation Comments CHOLESTEROL (test code = 2210) 167 MG/DL TRIGLYCERIDES (test code = 2232) 263 MG/DL HDL CHOLESTEROL (test code = 2220) 40 MG/DL CALC LDL CHOL (test code = 2237) 92 MG/DL RISK RATIO LDL/HDL (test code = 2.30 RATIO 2238) LIPID [id number] 00:00:00 Test Item Value Reference Range Interpretation Comments CHOLESTEROL (test code = 2210) 167 MG/DL TRIGLYCERIDES (test code = 2232) 263 MG/DL HDL CHOLESTEROL (test code = 2220) 40 MG/DL CALC LDL CHOL (test code = 2237) 92 MG/DL RISK RATIO LDL/HDL (test code = 2.30 RATIO 2238) CBC W/AUTO [id number] 00:00:00 Test Item Value Reference Range Interpretation [...] NUCLEATED RBCS (test code = 0.00 K/UL 14607) CBC W/AUTO [id number] 00:00:00 Test Item Value Reference Range Interpretation [...] NUCLEATED RBCS (test code = 0.00 K/UL 54308) CBC W/AUTO [id number] 00:00:00 Test Item Value Reference Range Interpretation [...] NUCLEATED RBCS (test code = 0.00 K/UL 20590) COMPREHENSIVE METABOLIC [id number] 00:00:00 Test Item Value Reference Range Interpretation Comments GLUCOSE (test code = 2217) 264 MG/DL BUN (test code = 2208) 12 MG/DL CREATININE (test code = 2214) 1.13 MG/DL eGFR AMER. (test code 86 ML/MIN/1.73 = 88714) eGFR NON- AMER. (test 74 ML/MIN/1.73 code = 93156) CALC BUN/CREAT (test code = 11 RATIO [...] code = 2219) 35 U/L COMPREHENSIVE METABOLIC [id number] 00:00:00 Test Item Value Reference Range Interpretation Comments GLUCOSE (test code = 2217) 264 MG/DL BUN (test code = 2208) 12 MG/DL CREATININE (test code = 2214) 1.13 MG/DL eGFR AMER. (test code 86 ML/MIN/1.73 = 63957) eGFR NON- AMER. (test 74 ML/MIN/1.73 code = 31099) CALC BUN/CREAT (test code = 11 RATIO [...] ALT (test code = 2219) 35 U/L [id number] 00:00:00 Test Item Value Reference Range Interpretation Comments TSH, THIRD GENERATION (test code 0.949 UIU/ML = 2821) [id number] 00:00:00 Test Item Value Reference Range Interpretation Comments TSH, THIRD GENERATION (test code 0.949 UIU/ML = 2821) [id number] 00:00:00 Test Item Value Reference Range Interpretation Comments TSH, THIRD GENERATION (test code 0.949 UIU/ML = 2821) HEMOGLOBIN [id number] 00:00:00 Test Item Value Reference Range Interpretation Comments HEMOGLOBIN A1c (test code = 26293) 7.7 % HEMOGLOBIN [id number] 00:00:00 Test Item Value Reference Range Interpretation Comments HEMOGLOBIN A1c (test code = 66743) 7.7 % HEMOGLOBIN [id number] 00:00:00 Test Item Value Reference Range Interpretation Comments HEMOGLOBIN A1c (test code = 03644) 7.7 % LIPID [id number] 00:00:00 Test Item Value Reference Range Interpretation Comments CHOLESTEROL (test code = 2210) 167 MG/DL TRIGLYCERIDES (test code = 2232) 263 MG/DL HDL CHOLESTEROL (test code = 2220) 40 MG/DL CALC LDL CHOL (test code = 2237) 92 MG/DL RISK RATIO LDL/HDL (test code = 2.30 RATIO 2238) LIPID [id number] 00:00:00 Test Item Value Reference Range Interpretation Comments CHOLESTEROL (test code = 2210) 167 MG/DL TRIGLYCERIDES (test code = 2232) 263 MG/DL HDL CHOLESTEROL (test code = 2220) 40 MG/DL CALC LDL CHOL (test code = 2237) 92 MG/DL RISK RATIO LDL/HDL (test code = 2.30 RATIO 2238) CBC W/AUTO [id number] 00:00:00 Test Item Value Reference Range Interpretation [...] NUCLEATED RBCS (test code = 0.00 K/UL 95103) CBC W/AUTO [id number] 00:00:00 Test Item Value Reference Range Interpretation [...] NUCLEATED RBCS (test code = 0.00 K/UL 81148) CBC W/AUTO [id number] 00:00:00 Test Item Value Reference Range Interpretation [...] NUCLEATED RBCS (test code = 0.00 K/UL 39967) COMPREHENSIVE METABOLIC [id number] 00:00:00 Test Item Value Reference Range Interpretation Comments GLUCOSE (test code = 2217) 264 MG/DL BUN (test code = 2208) 12 MG/DL CREATININE (test code = 2214) 1.13 MG/DL eGFR AMER. (test code 86 ML/MIN/1.73 = 94214) eGFR NON- AMER. (test 74 ML/MIN/1.73 code = 29503) CALC BUN/CREAT (test code = 11 RATIO [...] code = 2219) 35 U/L COMPREHENSIVE METABOLIC [id number] 00:00:00 Test Item Value Reference Range Interpretation Comments GLUCOSE (test code = 2217) 264 MG/DL BUN (test code = 2208) 12 MG/DL CREATININE (test code = 2214) 1.13 MG/DL eGFR AMER. (test code 86 ML/MIN/1.73 = 67341) eGFR NON- AMER. (test 74 ML/MIN/1.73 code = 08565) CALC BUN/CREAT (test code = 11 RATIO 2235) SODIUM (test code = 2231) 138 MEQ/L POTASSIUM (test code = 2228) 4.6 MEQ/L CHLORIDE (test code = 2215) 97 MEQ/L CARBON DIOXIDE (test code = 27 MEQ/L 220) CALCIUM (test code = 2209) 9.3 MG/DL PROTEIN, TOTAL (test code = 8.0 G/DL 2229) ALBUMIN (test code = 2201) 4.2 G/DL CALC GLOBULIN (test code = 3.8 G/DL 2240) CALC A/G RATIO (test code = 1.1 RATIO 2234) BILIRUBIN, TOTAL (test code = 0.6 MG/DL 2206) ALKALINE PHOSPHATASE (test 133 U/L code = 2204) AST (test code = 2218) 21 U/L ALT (test code = 2219) 35 U/L [id number] 00:00:00 Test Item Value Reference Range Interpretation Comments TSH, THIRD GENERATION (test code 0.949 UIU/ML = 2821) [id number] 00:00:00 Test Item Value Reference Range Interpretation Comments TSH, THIRD GENERATION (test code 0.949 UIU/ML = 2821) [id number] 00:00:00 Test Item Value Reference Range Interpretation Comments TSH, THIRD GENERATION (test code 0.949 UIU/ML = 2821) HEMOGLOBIN [id number] 00:00:00 Test Item Value Reference Range Interpretation Comments HEMOGLOBIN A1c (test code = 26480) 7.7 % HEMOGLOBIN [id number] 00:00:00 Test Item Value Reference Range Interpretation Comments HEMOGLOBIN A1c (test code = 50609) 7.7 % LIPID [id number] 00:00:00 Test Item Value Reference Range Interpretation Comments CHOLESTEROL (test code = 2210) 167 MG/DL TRIGLYCERIDES (test code = 2232) 263 MG/DL HDL CHOLESTEROL (test code = 2220) 40 MG/DL CALC LDL CHOL (test code = 2237) 92 MG/DL RISK RATIO LDL/HDL (test code = 2.30 RATIO 2238) CBC W/AUTO [id number] 00:00:00 Test Item Value Reference Range Interpretation [...] NUCLEATED RBCS (test code = 0.00 K/UL 77027) CBC W/AUTO [id number] 00:00:00 Test Item Value Reference Range Interpretation [...] NUCLEATED RBCS (test code = 0.00 K/UL 90030) COMPREHENSIVE METABOLIC [id number] 00:00:00 Test Item Value Reference Range Interpretation Comments GLUCOSE (test code = 2217) 264 MG/DL BUN (test code = 2208) 12 MG/DL CREATININE (test code = 2214) 1.13 MG/DL eGFR AMER. (test code 86 ML/MIN/1.73 = 95419) eGFR NON- AMER. (test 74 ML/MIN/1.73 code = 40385) CALC BUN/CREAT (test code = 11 RATIO [...] ALT (test code = 2219) 35 U/L [id number] 00:00:00 Test Item Value Reference Range Interpretation Comments TSH, THIRD GENERATION (test code 0.949 UIU/ML = 2821) [id number] 00:00:00 Test Item Value Reference Range Interpretation Comments TSH, THIRD GENERATION (test code 0.949 UIU/ML = 2821) HEMOGLOBIN [id number] 00:00:00 Test Item Value Reference Range Interpretation Comments HEMOGLOBIN A1c (test code = 21968) 7.7 % HEMOGLOBIN [id number] 00:00:00 Test Item Value Reference Range Interpretation Comments HEMOGLOBIN A1c (test code = 52769) 7.7 % LIPID [id number] 00:00:00 Test Item Value Reference Range Interpretation Comments CHOLESTEROL (test code = 2210) 167 MG/DL TRIGLYCERIDES (test code = 2232) 263 MG/DL HDL CHOLESTEROL (test code = 2220) 40 MG/DL CALC LDL CHOL (test code = 2237) 92 MG/DL RISK RATIO LDL/HDL (test code = 2.30 RATIO 2238) CBC W/AUTO [id number] 00:00:00 Test Item Value Reference Range Interpretation [...] NUCLEATED RBCS (test code = 0.00 K/UL 96918) CBC W/AUTO [id number] 00:00:00 Test Item Value Reference Range Interpretation [...] NUCLEATED RBCS (test code = 0.00 K/UL 47506) COMPREHENSIVE METABOLIC [id number] 00:00:00 Test Item Value Reference Range Interpretation Comments GLUCOSE (test code = 2217) 264 MG/DL BUN (test code = 2208) 12 MG/DL CREATININE (test code = 2214) 1.13 MG/DL eGFR AMER. (test code 86 ML/MIN/1.73 = 66701) eGFR NON- AMER. (test 74 ML/MIN/1.73 code = 90627) CALC BUN/CREAT (test code = 11 RATIO [...] ALT (test code = 2219) 35 U/L [id number] 00:00:00 Test Item Value Reference Range Interpretation Comments TSH, THIRD GENERATION (test code 0.949 UIU/ML = 2821) [id number] 00:00:00 Test Item Value Reference Range Interpretation Comments TSH, THIRD GENERATION (test code 0.949 UIU/ML = 2821) HEMOGLOBIN [id number] 00:00:00 Test Item Value Reference Range Interpretation Comments HEMOGLOBIN A1c (test code = 70681) 7.7 % HEMOGLOBIN [id number] 00:00:00 Test Item Value Reference Range Interpretation Comments HEMOGLOBIN A1c (test code = 34776) 7.7 % HEMOGLOBIN [id number] 00:00:00 Test Item Value Reference Range Interpretation Comments HEMOGLOBIN A1c (test code = 57114) 7.7 % LIPID [id number] 00:00:00 Test Item Value Reference Range Interpretation Comments CHOLESTEROL (test code = 2210) 167 MG/DL TRIGLYCERIDES (test code = 2232) 263 MG/DL HDL CHOLESTEROL (test code = 2220) 40 MG/DL CALC LDL CHOL (test code = 2237) 92 MG/DL RISK RATIO LDL/HDL (test code = 2.30 RATIO 2238) LIPID [id number] 00:00:00 Test Item Value Reference Range Interpretation Comments CHOLESTEROL (test code = 2210) 167 MG/DL TRIGLYCERIDES (test code = 2232) 263 MG/DL HDL CHOLESTEROL (test code = 2220) 40 MG/DL CALC LDL CHOL (test code = 2237) 92 MG/DL RISK RATIO LDL/HDL (test code = 2.30 RATIO 2238) CBC W/AUTO [id number] 00:00:00 Test Item Value Reference Range Interpretation [...] NUCLEATED RBCS (test code = 0.00 K/UL 07669) CBC W/AUTO [id number] 00:00:00 Test Item Value Reference Range Interpretation [...] NUCLEATED RBCS (test code = 0.00 K/UL 89745) CBC W/AUTO [id number] 00:00:00 Test Item Value Reference Range Interpretation [...] NUCLEATED RBCS (test code = 0.00 K/UL 05442) COMPREHENSIVE METABOLIC [id number] 00:00:00 Test Item Value Reference Range Interpretation Comments GLUCOSE (test code = 2217) 264 MG/DL BUN (test code = 2208) 12 MG/DL CREATININE (test code = 2214) 1.13 MG/DL eGFR AMER. (test code 86 ML/MIN/1.73 = 12498) eGFR NON- AMER. (test 74 ML/MIN/1.73 code = 46710) CALC BUN/CREAT (test code = 11 RATIO [...] code = 2219) 35 U/L COMPREHENSIVE METABOLIC [id number] 00:00:00 Test Item Value Reference Range Interpretation Comments GLUCOSE (test code = 2217) 264 MG/DL BUN (test code = 2208) 12 MG/DL CREATININE (test code = 2214) 1.13 MG/DL eGFR AMER. (test code 86 ML/MIN/1.73 = 12626) eGFR NON- AMER. (test 74 ML/MIN/1.73 code = 26366) CALC BUN/CREAT (test code = 11 RATIO 223) SODIUM (test code = 2231) 138 MEQ/L [...] ALT (test code = 2219) 35 U/L [id number] 00:00:00 Test Item Value Reference Range Interpretation Comments TSH, THIRD GENERATION (test code 0.949 UIU/ML = 2821) [id number] 00:00:00 Test Item Value Reference Range Interpretation Comments TSH, THIRD GENERATION (test code 0.949 UIU/ML = 2821) [id number] 00:00:00 Test Item Value Reference Range Interpretation Comments TSH, THIRD GENERATION (test code 0.949 UIU/ML = 2821) LIPID [id number] 00:00:00 Test Item Value Reference Range Interpretation Comments CHOLESTEROL (test code = 2210) 224 MG/DL TRIGLYCERIDES (test code = 2232) 361 MG/DL HDL CHOLESTEROL (test code = 2220) 45 MG/DL CALC LDL CHOL (test code = 2237) 127 MG/DL RISK RATIO LDL/HDL (test code = 2.82 RATIO 2238) LIPID [id number] 00:00:00 Test Item Value Reference Range Interpretation Comments CHOLESTEROL (test code = 2210) 224 MG/DL TRIGLYCERIDES (test code = 2232) 361 MG/DL HDL CHOLESTEROL (test code = 2220) 45 MG/DL CALC LDL CHOL (test code = 2237) 127 MG/DL RISK RATIO LDL/HDL (test code = 2.82 RATIO 2238) HEMOGLOBIN [id number] 00:00:00 Test Item Value Reference Range Interpretation Comments HEMOGLOBIN A1c (test code = 55314) 5.9 % HEMOGLOBIN [id number] 00:00:00 Test Item Value Reference Range Interpretation Comments HEMOGLOBIN A1c (test code = 81369) 5.9 % HEMOGLOBIN [id number] 00:00:00 Test Item Value Reference Range Interpretation Comments HEMOGLOBIN A1c (test code = 44476) 5.9 % COMPREHENSIVE METABOLIC [id number] 00:00:00 Test Item Value Reference Range Interpretation Comments GLUCOSE (test code = 2217) 150 MG/DL BUN (test code = 2208) 14 MG/DL CREATININE (test code = 2214) 1.22 MG/DL eGFR AMER. (test code 79 ML/MIN/1.73 = 76868) eGFR NON- AMER. (test 68 ML/MIN/1.73 code = 62977) CALC BUN/CREAT (test code = 11 RATIO [...] code = 2219) 49 U/L COMPREHENSIVE METABOLIC [id number] 00:00:00 Test Item Value Reference Range Interpretation Comments GLUCOSE (test code = 2217) 150 MG/DL BUN (test code = 2208) 14 MG/DL CREATININE (test code = 2214) 1.22 MG/DL eGFR AMER. (test code 79 ML/MIN/1.73 = 48002) eGFR NON- AMER. (test 68 ML/MIN/1.73 code = 28075) CALC BUN/CREAT (test code = 11 RATIO [...] (test code = 2219) 49 U/L LIPID [id number] 00:00:00 Test Item Value Reference Range Interpretation Comments CHOLESTEROL (test code = 2210) 224 MG/DL TRIGLYCERIDES (test code = 2232) 361 MG/DL HDL CHOLESTEROL (test code = 2220) 45 MG/DL CALC LDL CHOL (test code = 2237) 127 MG/DL RISK RATIO LDL/HDL (test code = 2.82 RATIO 2238) HEMOGLOBIN [id number] 00:00:00 Test Item Value Reference Range Interpretation Comments HEMOGLOBIN A1c (test code = 05369) 5.9 % LIPID [id number] 00:00:00 Test Item Value Reference Range Interpretation Comments CHOLESTEROL (test code = 2210) 224 MG/DL TRIGLYCERIDES (test code = 2232) 361 MG/DL HDL CHOLESTEROL (test code = 2220) 45 MG/DL CALC LDL CHOL (test code = 2237) 127 MG/DL RISK RATIO LDL/HDL (test code = 2.82 RATIO 2238) HEMOGLOBIN [id number] 00:00:00 Test Item Value Reference Range Interpretation Comments HEMOGLOBIN A1c (test code = 37593) 5.9 % LIPID [id number] 00:00:00 Test Item Value Reference Range Interpretation Comments CHOLESTEROL (test code = 2210) 224 MG/DL TRIGLYCERIDES (test code = 2232) 361 MG/DL HDL CHOLESTEROL (test code = 2220) 45 MG/DL CALC LDL CHOL (test code = 2237) 127 MG/DL RISK RATIO LDL/HDL (test code = 2.82 RATIO 2238) HEMOGLOBIN [id number] 00:00:00 Test Item Value Reference Range Interpretation Comments HEMOGLOBIN A1c (test code = 56631) 5.9 % HEMOGLOBIN [id number] 00:00:00 Test Item Value Reference Range Interpretation Comments HEMOGLOBIN A1c (test code = 65621) 5.9 % HEMOGLOBIN [id number] 00:00:00 Test Item Value Reference Range Interpretation Comments HEMOGLOBIN A1c (test code = 30843) 5.9 % COMPREHENSIVE METABOLIC [id number] 00:00:00 Test Item Value Reference Range Interpretation Comments GLUCOSE (test code = 2217) 150 MG/DL BUN (test code = 2208) 14 MG/DL CREATININE (test code = 2214) 1.22 MG/DL eGFR AMER. (test code 79 ML/MIN/1.73 = 64499) eGFR NON- AMER. (test 68 ML/MIN/1.73 code = 53873) CALC BUN/CREAT (test code = 11 RATIO [...] code = 2219) 49 U/L COMPREHENSIVE METABOLIC [id number] 00:00:00 Test Item Value Reference Range Interpretation Comments GLUCOSE (test code = 2217) 150 MG/DL BUN (test code = 2208) 14 MG/DL CREATININE (test code = 2214) 1.22 MG/DL eGFR AMER. (test code 79 ML/MIN/1.73 = 20891) eGFR NON- AMER. (test 68 ML/MIN/1.73 code = 22777) CALC BUN/CREAT (test code = 11 RATIO [...] code = 2219) 49 U/L COMPREHENSIVE METABOLIC [id number] 00:00:00 Test Item Value Reference Range Interpretation Comments GLUCOSE (test code = 2217) 150 MG/DL BUN (test code = 2208) 14 MG/DL CREATININE (test code = 2214) 1.22 MG/DL eGFR AMER. (test code 79 ML/MIN/1.73 = 13212) eGFR NON- AMER. (test 68 ML/MIN/1.73 code = 24333) CALC BUN/CREAT (test code = 11 RATIO [...] (test code = 2219) 49 U/L LIPID [id number] 00:00:00 Test Item Value Reference Range Interpretation Comments CHOLESTEROL (test code = 2210) 224 MG/DL TRIGLYCERIDES (test code = 2232) 361 MG/DL HDL CHOLESTEROL (test code = 2220) 45 MG/DL CALC LDL CHOL (test code = 2237) 127 MG/DL RISK RATIO LDL/HDL (test code = 2.82 RATIO 2238) LIPID [id number] 00:00:00 Test Item Value Reference Range Interpretation Comments CHOLESTEROL (test code = 2210) 224 MG/DL TRIGLYCERIDES (test code = 2232) 361 MG/DL HDL CHOLESTEROL (test code = 2220) 45 MG/DL CALC LDL CHOL (test code = 2237) 127 MG/DL RISK RATIO LDL/HDL (test code = 2.82 RATIO 2238) HEMOGLOBIN [id number] 00:00:00 Test Item Value Reference Range Interpretation Comments HEMOGLOBIN A1c (test code = 88407) 5.9 % HEMOGLOBIN [id number] 00:00:00 Test Item Value Reference Range Interpretation Comments HEMOGLOBIN A1c (test code = 27030) 5.9 % HEMOGLOBIN [id number] 00:00:00 Test Item Value Reference Range Interpretation Comments HEMOGLOBIN A1c (test code = 56531) 5.9 % COMPREHENSIVE METABOLIC [id number] 00:00:00 Test Item Value Reference Range Interpretation Comments GLUCOSE (test code = 2217) 150 MG/DL BUN (test code = 2208) 14 MG/DL CREATININE (test code = 2214) 1.22 MG/DL eGFR AMER. (test code 79 ML/MIN/1.73 = 29607) eGFR NON- AMER. (test 68 ML/MIN/1.73 code = 37342) CALC BUN/CREAT (test code = 11 RATIO [...] code = 2219) 49 U/L COMPREHENSIVE METABOLIC [id number] 00:00:00 Test Item Value Reference Range Interpretation Comments GLUCOSE (test code = 2217) 150 MG/DL BUN (test code = 2208) 14 MG/DL CREATININE (test code = 2214) 1.22 MG/DL eGFR AMER. (test code 79 ML/MIN/1.73 = 85722) eGFR NON- AMER. (test 68 ML/MIN/1.73 code = 05732) CALC BUN/CREAT (test code = 11 RATIO [...] (test code = 2219) 49 U/L LIPID [id number] 00:00:00 Test Item Value Reference Range Interpretation Comments CHOLESTEROL (test code = 2210) 224 MG/DL TRIGLYCERIDES (test code = 2232) 361 MG/DL HDL CHOLESTEROL (test code = 2220) 45 MG/DL CALC LDL CHOL (test code = 2237) 127 MG/DL RISK RATIO LDL/HDL (test code = 2.82 RATIO 2238) LIPID [id number] 00:00:00 Test Item Value Reference Range Interpretation Comments CHOLESTEROL (test code = 2210) 224 MG/DL TRIGLYCERIDES (test code = 2232) 361 MG/DL HDL CHOLESTEROL (test code = 2220) 45 MG/DL CALC LDL CHOL (test code = 2237) 127 MG/DL RISK RATIO LDL/HDL (test code = 2.82 RATIO 2238) HEMOGLOBIN [id number] 00:00:00 Test Item Value Reference Range Interpretation Comments HEMOGLOBIN A1c (test code = 20657) 5.9 % HEMOGLOBIN [id number] 00:00:00 Test Item Value Reference Range Interpretation Comments HEMOGLOBIN A1c (test code = 91104) 5.9 % HEMOGLOBIN [id number] 00:00:00 Test Item Value Reference Range Interpretation Comments HEMOGLOBIN A1c (test code = 61581) 5.9 % COMPREHENSIVE METABOLIC [id number] 00:00:00 Test Item Value Reference Range Interpretation Comments GLUCOSE (test code = 2217) 150 MG/DL BUN (test code = 2208) 14 MG/DL CREATININE (test code = 2214) 1.22 MG/DL eGFR AMER. (test code 79 ML/MIN/1.73 = 14765) eGFR NON- AMER. (test 68 ML/MIN/1.73 code = 28069) CALC BUN/CREAT (test code = 11 RATIO [...] code = 2219) 49 U/L COMPREHENSIVE METABOLIC [id number] 00:00:00 Test Item Value Reference Range Interpretation Comments GLUCOSE (test code = 2217) 150 MG/DL BUN (test code = 2208) 14 MG/DL CREATININE (test code = 2214) 1.22 MG/DL eGFR AMER. (test code 79 ML/MIN/1.73 = 86899) eGFR NON- AMER. (test 68 ML/MIN/1.73 code = 55600) CALC BUN/CREAT (test code = 11 RATIO [...] (test code = 2219) 49 U/L LIPID [id number] 00:00:00 Test Item Value Reference Range Interpretation Comments CHOLESTEROL (test code = 2210) 224 MG/DL TRIGLYCERIDES (test code = 2232) 361 MG/DL HDL CHOLESTEROL (test code = 2220) 45 MG/DL CALC LDL CHOL (test code = 2237) 127 MG/DL RISK RATIO LDL/HDL (test code = 2.82 RATIO 2238) LIPID [id number] 00:00:00 Test Item Value Reference Range Interpretation Comments CHOLESTEROL (test code = 2210) 224 MG/DL TRIGLYCERIDES (test code = 2232) 361 MG/DL HDL CHOLESTEROL (test code = 2220) 45 MG/DL CALC LDL CHOL (test code = 2237) 127 MG/DL RISK RATIO LDL/HDL (test code = 2.82 RATIO 2238) HEMOGLOBIN [id number] 00:00:00 Test Item Value Reference Range Interpretation Comments HEMOGLOBIN A1c (test code = 80416) 5.9 % HEMOGLOBIN [id number] 00:00:00 Test Item Value Reference Range Interpretation Comments HEMOGLOBIN A1c (test code = 79437) 5.9 % HEMOGLOBIN [id number] 00:00:00 Test Item Value Reference Range Interpretation Comments HEMOGLOBIN A1c (test code = 83962) 5.9 % COMPREHENSIVE METABOLIC [id number] 00:00:00 Test Item Value Reference Range Interpretation Comments GLUCOSE (test code = 2217) 150 MG/DL BUN (test code = 2208) 14 MG/DL CREATININE (test code = 2214) 1.22 MG/DL eGFR AMER. (test code 79 ML/MIN/1.73 = 84749) eGFR NON- AMER. (test 68 ML/MIN/1.73 code = 61570) CALC BUN/CREAT (test code = 11 RATIO [...] code = 2219) 49 U/L COMPREHENSIVE METABOLIC [id number] 00:00:00 Test Item Value Reference Range Interpretation Comments GLUCOSE (test code = 2217) 150 MG/DL BUN (test code = 2208) 14 MG/DL CREATININE (test code = 2214) 1.22 MG/DL eGFR AMER. (test code 79 ML/MIN/1.73 = 32008) eGFR NON- AMER. (test 68 ML/MIN/1.73 code = 56684) CALC BUN/CREAT (test code = 11 RATIO [...] (test code = 2219) 49 U/L LIPID [id number] 00:00:00 Test Item Value Reference Range Interpretation Comments CHOLESTEROL (test code = 2210) 224 MG/DL TRIGLYCERIDES (test code = 2232) 361 MG/DL HDL CHOLESTEROL (test code = 2220) 45 MG/DL CALC LDL CHOL (test code = 2237) 127 MG/DL RISK RATIO LDL/HDL (test code = 2.82 RATIO 2238) HEMOGLOBIN [id number] 00:00:00 Test Item Value Reference Range Interpretation Comments HEMOGLOBIN A1c (test code = 67102) 5.9 % HEMOGLOBIN [id number] 00:00:00 Test Item Value Reference Range Interpretation Comments HEMOGLOBIN A1c (test code = 00242) 5.9 % COMPREHENSIVE METABOLIC [id number] 00:00:00 Test Item Value Reference Range Interpretation Comments GLUCOSE (test code = 2217) 150 MG/DL BUN (test code = 2208) 14 MG/DL CREATININE (test code = 2214) 1.22 MG/DL eGFR AMER. (test code 79 ML/MIN/1.73 = 20855) eGFR NON- AMER. (test 68 ML/MIN/1.73 code = 43424) CALC BUN/CREAT (test code = 11 RATIO [...] (test code = 2219) 49 U/L LIPID [id number] 00:00:00 Test Item Value Reference Range Interpretation Comments CHOLESTEROL (test code = 2210) 224 MG/DL TRIGLYCERIDES (test code = 2232) 361 MG/DL HDL CHOLESTEROL (test code = 2220) 45 MG/DL CALC LDL CHOL (test code = 2237) 127 MG/DL RISK RATIO LDL/HDL (test code = 2.82 RATIO 2238) HEMOGLOBIN [id number] 00:00:00 Test Item Value Reference Range Interpretation Comments HEMOGLOBIN A1c (test code = 24878) 5.9 % HEMOGLOBIN [id number] 00:00:00 Test Item Value Reference Range Interpretation Comments HEMOGLOBIN A1c (test code = 43218) 5.9 % COMPREHENSIVE METABOLIC [id number] 00:00:00 Test Item Value Reference Range Interpretation Comments GLUCOSE (test code = 2217) 150 MG/DL BUN (test code = 2208) 14 MG/DL CREATININE (test code = 2214) 1.22 MG/DL eGFR AMER. (test code 79 ML/MIN/1.73 = 99779) eGFR NON- AMER. (test 68 ML/MIN/1.73 code = 37593) CALC BUN/CREAT (test code = 11 RATIO [...] (test code = 2219) 49 U/L LIPID [id number] 00:00:00 Test Item Value Reference Range Interpretation Comments CHOLESTEROL (test code = 2210) 224 MG/DL TRIGLYCERIDES (test code = 2232) 361 MG/DL HDL CHOLESTEROL (test code = 2220) 45 MG/DL CALC LDL CHOL (test code = 2237) 127 MG/DL RISK RATIO LDL/HDL (test code = 2.82 RATIO 2238) LIPID [id number] 00:00:00 Test Item Value Reference Range Interpretation Comments CHOLESTEROL (test code = 2210) 224 MG/DL TRIGLYCERIDES (test code = 2232) 361 MG/DL HDL CHOLESTEROL (test code = 2220) 45 MG/DL CALC LDL CHOL (test code = 2237) 127 MG/DL RISK RATIO LDL/HDL (test code = 2.82 RATIO 2238) HEMOGLOBIN [id number] 00:00:00 Test Item Value Reference Range Interpretation Comments HEMOGLOBIN A1c (test code = 97343) 5.9 % HEMOGLOBIN [id number] 00:00:00 Test Item Value Reference Range Interpretation Comments HEMOGLOBIN A1c (test code = 13990) 5.9 % HEMOGLOBIN [id number] 00:00:00 Test Item Value Reference Range Interpretation Comments HEMOGLOBIN A1c (test code = 05513) 5.9 % COMPREHENSIVE METABOLIC [id number] 00:00:00 Test Item Value Reference Range Interpretation Comments GLUCOSE (test code = 2217) 150 MG/DL BUN (test code = 2208) 14 MG/DL CREATININE (test code = 2214) 1.22 MG/DL eGFR AMER. (test code 79 ML/MIN/1.73 = 91370) eGFR NON- AMER. (test 68 ML/MIN/1.73 code = 39070) CALC BUN/CREAT (test code = 11 RATIO [...] code = 2219) 49 U/L COMPREHENSIVE METABOLIC [id number] 00:00:00 Test Item Value Reference Range Interpretation Comments GLUCOSE (test code = 2217) 150 MG/DL BUN (test code = 2208) 14 MG/DL CREATININE (test code = 2214) 1.22 MG/DL eGFR AMER. (test code 79 ML/MIN/1.73 = 49125) eGFR NON- AMER. (test 68 ML/MIN/1.73 code = 73430) CALC BUN/CREAT (test code = 11 RATIO 2235) SODIUM (test code = 2231) 141 MEQ/L POTASSIUM (test code = 2228) 4.5 MEQ/L CHLORIDE (test code = 2215) 99 MEQ/L CARBON DIOXIDE (test code = 33 MEQ/L 220) CALCIUM (test code = 2209) 10.1 MG/DL PROTEIN, TOTAL (test code = 8.0 G/DL 2229) ALBUMIN (test code = 2201) 4.3 G/DL [...] Not Detected Not Detected (test code = 68916-5) ZAIDA (test code = ZAIDA) ID NOW COVID-19 Assay is an isothermal nucleic acid amplification test intended for the qualitative detection of nucleic acid from SARS-CoV-2 viral RNA in nasopharyngeal ([employer]) specimens. It is used under Emergency [...] indicated. Lab Interpretation Normal (test code = 33221-6) [facility]2020-08-14 18:18:00 Test Item Value Reference Range Interpretation Comments SARS-CoV-2 Rapid ID NOW Not Detected Not Detected (test code = 72696-0) ZAIDA (test code = ZAIDA) ID NOW COVID-19 Assay is an isothermal nucleic acid amplification test intended for the qualitative detection of nucleic acid from SARS-CoV-2 viral RNA in nasopharyngeal ([employer]) specimens. It is used under Emergency [...] indicated. Lab Interpretation Normal (test code = 61910-5) [facility] CenterXR CHEST 2 [id number] 17:57:50 Interstitial vascular congestion. Bibasilar streaky opacities, [...] atelectasis. Preliminary Report Dictated by Resident: Afsaneh Prseley MD., have reviewed this study and agree with theabove report.[facility] CenterTR[facility] [id number] 17:28:00 Test Item Value Reference Range Interpretation Comments TROPONIN I (test 0.001 ng/mL See_Comment [Automated code = 2260469832) message] The system which generated this result [...] ? Lab Interpretation Normal (test code = 85958-4) [facility] [id number] 17:25:00 Test Item Value Reference Range Interpretation Comments NT-proBNP (test code 129 pg/mL See_Comment H [Autom ated = 2450244426) message] The system which generated this result transmitted reference range : <=125. The reference range was not used to interpret this result as normal/abnormal . ZAIDA (test code = ZAIDA) Biotin has been reported to cause a negative bias, interpret results relative to patient's use of biotin. Lab Interpretation Abnormal (test code = 45913-4) [facility]era[facility]TT2020-[facility] 17:17:00 Test Item Value Reference Range Interpretation Comments APTT Patient (test See_Comment [Automat ed code = 3173-2) message] The system which generated this result transmitted reference range : 23 - 38 Seconds . The reference range was not used to interpr et this result as normal/abnormal . ZAIDA (test code = ZAIDA) The [facility] patient population mean normal value for aPTT is 30 seconds. Lab Interpretation Normal (test code = 75794-1) [facility]. METABOLIC PANEL (45269)2020-08-14 17:17:00 Test Item Value Reference Range Interpretation Comments NA (test code = 137 mmol/L 135-145 1733102015) K (test code = 4.3 mmol/L 3.5-5 0851275342) CL (test code = 97 mmol/L 98-108 L 5122832019) CO2 TOTAL (test code = 31 mmol/L 23-31 5168437109) AGAP (test code = 2-16 4982252740) BUN (test code = 14 mg/dL 7-23 9174250076) GLUCOSE (test code = 135 mg/dL 70-110 H 4818115565) CREATININE (test code = 1.22 mg/dL 0.6-1.25 0085130258) TOTAL BILI (test code = 1.0 mg/dL 0.1-1.0 9976838369) CALCIUM (test code = 9.1 mg/dL 8.6-10.6 0462081177) T PROTEIN (test code = 7.6 g/dL 6.3-8.2 9191261954) ALBUMIN (test code = 4.0 g/dL 3.5-5 4612476047) ALK PHOS (test code = 90 U/L 34-122 2867439752) ALTv (test code = 22 U/L 5-50 1742-6) AST(SGOT) (test code = 25 U/L 13-40 7061927836) eGFR Calculation mL/min/1.73m2 (Non-) (test code = 4213980588) eGFR Calculation mL/min/1.73m2 () (test code = 5022665390) ZAIDA (test code = ZAIDA) Association of [...] tests). Lab Interpretation Abnormal (test code = 09188-9) [facility] CenterLIP[facility], [id number] 17:16:00 Test Item Value Reference Range Interpretation Comments LIPASE (test code = 6200551404) 63 U/L 0-220 Lab Interpretation (test code = Normal 60141-3) [facility] CenterPROTHROMBIN TIME / [id number] 17:14:00 Test Item Value Reference Range Interpretation [...] tions. Lab Interpretation (test Normal code = 56470-1) [facility] CenterCB WITH [id number] 17:09:00 Test Item Value Reference Range Interpretation Comments WBC (test code = See_Comment [Automated 4590-2) message] The sy stem which generated this [...] RDW-SD (test code = 41.4 fL 38.5-51.6 13073-2) RDW-CV (test code = 14.6 % 12.1-15.4 788-0) PLT (test code = See_Comment H [Automated 777-3) message] The sy stem which generated this result transmitted reference range : 150 - 328 10*3/ ?L. The reference r matthew was not used to interpret this result as normal/abnormal . MPV (test code = 10.8 fL 9.8-13 78462-0) NRBC/100 WBC (test See_Comment [Automat ed code = 5082922004) message] The system which generated this result transmitted reference range : 0.0 - 10.0 /100 WBCs. The refer ence range was not u sed to interpret th is result as normal/abnormal . NRBC x10^3 (test code <0.01 See_Comment [Auto mated = 2256666550) message] The s ystem which generated this result transmitted reference range : 10*3/?L. The reference range was not used to interpret this result as normal/abnormal . GRAN MAT (NEUT) % 65.2 % (test code = 770-8) IMM GRAN % (test code 0.30 % = 3832282220) LYMPH % (test code = 18.9 % 736-9) MONO % (test code = 11.3 % 5905-5) EOS % (test code = 3.7 % 713-8) BASO % (test code = 0.6 % 706-2) GRAN MAT x10^3(ANC) 5.78 10*3/uL 1.99-6.95 (test code = 1065854086) IMM GRAN x10^3 (test 0.03 10*3/uL 0-0.06 code = 7205885088) LYMPH x10^3 (test code 1.68 10*3/uL 1.09-3.23 = 731-0) MONO x10^3 (test code 1.00 10*3/uL 0.36-1.02 = 742-7) EOS x10^3 (test code = 0.33 10*3/uL 0.06-0.53 711-2) BASO x10^3 (test code 0.05 10*3/uL 0.01-0.09 = 704-7) Lab Interpretation Abnormal (test code = 57189-2) [facility] Center[facility]O [id number] 00:00:00 Test Item Value Reference Range Interpretation [...] code = 1015) 322 K/UL CBC W/AUTO [id number] 00:00:00 Test Item Value Reference Range Interpretation [...] code = 1015) 322 K/UL CBC W/AUTO [id number] 00:00:00 Test Item Value Reference Range Interpretation [...] code = 1015) 322 K/UL COMPREHENSIVE METABOLIC [id number] 00:00:00 Test Item Value Reference Range Interpretation Comments GLUCOSE (test code = 2217) 100 MG/DL BUN (test code = 2208) 13 MG/DL CREATININE (test code = 2214) 1.10 MG/DL eGFR AMER. (test code 91 ML/MIN/1.73 = 05753) eGFR NON- AMER. (test 78 ML/MIN/1.73 code = 15764) CALC BUN/CREAT (test code = 12 RATIO [...] code = 2219) 22 U/L COMPREHENSIVE METABOLIC [id number] 00:00:00 Test Item Value Reference Range Interpretation Comments GLUCOSE (test code = 2217) 100 MG/DL BUN (test code = 2208) 13 MG/DL CREATININE (test code = 2214) 1.10 MG/DL eGFR AMER. (test code 91 ML/MIN/1.73 = 41220) eGFR NON- AMER. (test 78 ML/MIN/1.73 code = 03362) CALC BUN/CREAT (test code = 12 RATIO [...] BILIRUBIN, TOTAL (test code = 0.4 MG/DL 7) ALKALINE PHOSPHATASE (test 106 U/L code = 2204) AST (test code = 2218) 16 U/L ALT (test code = 2219) 22 U/L LIPID [id number] 00:00:00 Test Item Value Reference Range Interpretation Comments CHOLESTEROL (test code = 2210) 263 MG/DL TRIGLYCERIDES (test code = 2232) 413 MG/DL HDL CHOLESTEROL (test code = 43 MG/DL 0) CALC LDL CHOL (test code = 2237) NOTE MG/DL RISK RATIO LDL/HDL (test code = (NOTE) RATIO 2238) LIPID [id number] 00:00:00 Test Item Value Reference Range Interpretation Comments CHOLESTEROL (test code = 2210) 263 MG/DL TRIGLYCERIDES (test code = 2232) 413 MG/DL HDL CHOLESTEROL (test code = 43 MG/DL 0) CALC LDL CHOL (test code = 2237) NOTE MG/DL RISK RATIO LDL/HDL (test code = (NOTE) RATIO 2238) HEMOGLOBIN [id number] 00:00:00 Test Item Value Reference Range Interpretation Comments HEMOGLOBIN A1c (test code = 47042) 6.9 % HEMOGLOBIN [id number] 00:00:00 Test Item Value Reference Range Interpretation Comments HEMOGLOBIN A1c (test code = 13595) 6.9 % HEMOGLOBIN [id number] 00:00:00 Test Item Value Reference Range Interpretation Comments HEMOGLOBIN A1c (test code = 07078) 6.9 % URIC [id number] 00:00:00 Test Item Value Reference Range Interpretation Comments URIC ACID (test code = 2233) 9.8 MG/DL URIC [id number] 00:00:00 Test Item Value Reference Range Interpretation Comments URIC ACID (test code = 2233) 9.8 MG/DL CBC W/AUTO [id number] 00:00:00 Test Item Value Reference Range Interpretation [...] code = 1015) 322 K/UL CBC W/AUTO [id number] 00:00:00 Test Item Value Reference Range Interpretation [...] code = 1015) 322 K/UL COMPREHENSIVE METABOLIC [id number] 00:00:00 Test Item Value Reference Range Interpretation Comments GLUCOSE (test code = 2217) 100 MG/DL BUN (test code = 2208) 13 MG/DL CREATININE (test code = 2214) 1.10 MG/DL eGFR AMER. (test code 91 ML/MIN/1.73 = 38922) eGFR NON- AMER. (test 78 ML/MIN/1.73 code = 66490) CALC BUN/CREAT (test code = 12 RATIO [...] code = 2219) 22 U/L CBC W/AUTO [id number] 00:00:00 Test Item Value Reference Range Interpretation [...] code = 1015) 322 K/UL CBC W/AUTO [id number] 00:00:00 Test Item Value Reference Range Interpretation [...] code = 1015) 322 K/UL CBC W/AUTO [id number] 00:00:00 Test Item Value Reference Range Interpretation [...] code = 1015) 322 K/UL COMPREHENSIVE METABOLIC [id number] 00:00:00 Test Item Value Reference Range Interpretation Comments GLUCOSE (test code = 2217) 100 MG/DL BUN (test code = 2208) 13 MG/DL CREATININE (test code = 2214) 1.10 MG/DL eGFR AMER. (test code 91 ML/MIN/1.73 = 01919) eGFR NON- AMER. (test 78 ML/MIN/1.73 code = 26712) CALC BUN/CREAT (test code = 12 RATIO [...] code = 2219) 22 U/L COMPREHENSIVE METABOLIC [id number] 00:00:00 Test Item Value Reference Range Interpretation Comments GLUCOSE (test code = 2217) 100 MG/DL BUN (test code = 2208) 13 MG/DL CREATININE (test code = 2214) 1.10 MG/DL eGFR AMER. (test code 91 ML/MIN/1.73 = 87133) eGFR NON- AMER. (test 78 ML/MIN/1.73 code = 41687) CALC BUN/CREAT (test code = 12 RATIO [...] (test code = 2219) 22 U/L LIPID [id number] 00:00:00 Test Item Value Reference Range Interpretation Comments CHOLESTEROL (test code = 2210) 263 MG/DL TRIGLYCERIDES (test code = 2232) 413 MG/DL HDL CHOLESTEROL (test code = 43 MG/DL 2220) CALC LDL CHOL (test code = 2237) NOTE MG/DL RISK RATIO LDL/HDL (test code = (NOTE) RATIO 2238) LIPID [id number] 00:00:00 Test Item Value Reference Range Interpretation Comments CHOLESTEROL (test code = 2210) 263 MG/DL TRIGLYCERIDES (test code = 2232) 413 MG/DL HDL CHOLESTEROL (test code = 43 MG/DL 2220) CALC LDL CHOL (test code = 2237) NOTE MG/DL RISK RATIO LDL/HDL (test code = (NOTE) RATIO 2238) HEMOGLOBIN [id number] 00:00:00 Test Item Value Reference Range Interpretation Comments HEMOGLOBIN A1c (test code = 74917) 6.9 % HEMOGLOBIN [id number] 00:00:00 Test Item Value Reference Range Interpretation Comments HEMOGLOBIN A1c (test code = 35844) 6.9 % HEMOGLOBIN [id number] 00:00:00 Test Item Value Reference Range Interpretation Comments HEMOGLOBIN A1c (test code = 26118) 6.9 % URIC [id number] 00:00:00 Test Item Value Reference Range Interpretation Comments URIC ACID (test code = 2233) 9.8 MG/DL URIC [id number] 00:00:00 Test Item Value Reference Range Interpretation Comments URIC ACID (test code = 2233) 9.8 MG/DL LIPID [id number] 00:00:00 Test Item Value Reference Range Interpretation Comments CHOLESTEROL (test code = 2210) 263 MG/DL TRIGLYCERIDES (test code = 2232) 413 MG/DL HDL CHOLESTEROL (test code = 43 MG/DL 2220) CALC LDL CHOL (test code = 2237) NOTE MG/DL RISK RATIO LDL/HDL (test code = (NOTE) RATIO 2238) HEMOGLOBIN [id number] 00:00:00 Test Item Value Reference Range Interpretation Comments HEMOGLOBIN A1c (test code = 09537) 6.9 % HEMOGLOBIN [id number] 00:00:00 Test Item Value Reference Range Interpretation Comments HEMOGLOBIN A1c (test code = 56556) 6.9 % URIC [id number] 00:00:00 Test Item Value Reference Range Interpretation Comments URIC ACID (test code = 2233) 9.8 MG/DL CBC W/AUTO [id number] 00:00:00 Test Item Value Reference Range Interpretation [...] code = 1015) 322 K/UL CBC W/AUTO [id number] 00:00:00 Test Item Value Reference Range Interpretation [...] code = 1015) 322 K/UL CBC W/AUTO [id number] 00:00:00 Test Item Value Reference Range Interpretation [...] code = 1015) 322 K/UL COMPREHENSIVE METABOLIC [id number] 00:00:00 Test Item Value Reference Range Interpretation Comments GLUCOSE (test code = 2217) 100 MG/DL BUN (test code = 2208) 13 MG/DL CREATININE (test code = 2214) 1.10 MG/DL eGFR AMER. (test code 91 ML/MIN/1.73 = 83136) eGFR NON- AMER. (test 78 ML/MIN/1.73 code = 33492) CALC BUN/CREAT (test code = 12 RATIO [...] code = 2219) 22 U/L COMPREHENSIVE METABOLIC [id number] 00:00:00 Test Item Value Reference Range Interpretation Comments GLUCOSE (test code = 2217) 100 MG/DL BUN (test code = 2208) 13 MG/DL CREATININE (test code = 2214) 1.10 MG/DL eGFR AMER. (test code 91 ML/MIN/1.73 = 60010) eGFR NON- AMER. (test 78 ML/MIN/1.73 code = 14462) CALC BUN/CREAT (test code = 12 RATIO [...] (test code = 2219) 22 U/L LIPID [id number] 00:00:00 Test Item Value Reference Range Interpretation Comments CHOLESTEROL (test code = 2210) 263 MG/DL TRIGLYCERIDES (test code = 2232) 413 MG/DL HDL CHOLESTEROL (test code = 43 MG/DL 2220) CALC LDL CHOL (test code = 2237) NOTE MG/DL RISK RATIO LDL/HDL (test code = (NOTE) RATIO 2238) LIPID [id number] 00:00:00 Test Item Value Reference Range Interpretation Comments CHOLESTEROL (test code = 2210) 263 MG/DL TRIGLYCERIDES (test code = 2232) 413 MG/DL HDL CHOLESTEROL (test code = 43 MG/DL 2220) CALC LDL CHOL (test code = 2237) NOTE MG/DL RISK RATIO LDL/HDL (test code = (NOTE) RATIO 2238) HEMOGLOBIN [id number] 00:00:00 Test Item Value Reference Range Interpretation Comments HEMOGLOBIN A1c (test code = 54359) 6.9 % HEMOGLOBIN [id number] 00:00:00 Test Item Value Reference Range Interpretation Comments HEMOGLOBIN A1c (test code = 70052) 6.9 % HEMOGLOBIN [id number] 00:00:00 Test Item Value Reference Range Interpretation Comments HEMOGLOBIN A1c (test code = 75822) 6.9 % URIC [id number] 00:00:00 Test Item Value Reference Range Interpretation Comments URIC ACID (test code = 2233) 9.8 MG/DL URIC [id number] 00:00:00 Test Item Value Reference Range Interpretation Comments URIC ACID (test code = 2233) 9.8 MG/DL CBC W/AUTO [id number] 00:00:00 Test Item Value Reference Range Interpretation [...] code = 1015) 322 K/UL CBC W/AUTO [id number] 00:00:00 Test Item Value Reference Range Interpretation [...] code = 1015) 322 K/UL CBC W/AUTO [id number] 00:00:00 Test Item Value Reference Range Interpretation [...] code = 1015) 322 K/UL COMPREHENSIVE METABOLIC [id number] 00:00:00 Test Item Value Reference Range Interpretation Comments GLUCOSE (test code = 2217) 100 MG/DL BUN (test code = 2208) 13 MG/DL CREATININE (test code = 2214) 1.10 MG/DL eGFR AMER. (test code 91 ML/MIN/1.73 = 42300) eGFR NON- AMER. (test 78 ML/MIN/1.73 code = 83714) CALC BUN/CREAT (test code = 12 RATIO [...] code = 2219) 22 U/L COMPREHENSIVE METABOLIC [id number] 00:00:00 Test Item Value Reference Range Interpretation Comments GLUCOSE (test code = 2217) 100 MG/DL BUN (test code = 2208) 13 MG/DL CREATININE (test code = 2214) 1.10 MG/DL eGFR AMER. (test code 91 ML/MIN/1.73 = 90478) eGFR NON- AMER. (test 78 ML/MIN/1.73 code = 33311) CALC BUN/CREAT (test code = 12 RATIO [...] (test code = 2219) 22 U/L LIPID [id number] 00:00:00 Test Item Value Reference Range Interpretation Comments CHOLESTEROL (test code = 2210) 263 MG/DL TRIGLYCERIDES (test code = 2232) 413 MG/DL HDL CHOLESTEROL (test code = 43 MG/DL 2220) CALC LDL CHOL (test code = 2237) NOTE MG/DL RISK RATIO LDL/HDL (test code = (NOTE) RATIO 2238) LIPID [id number] 00:00:00 Test Item Value Reference Range Interpretation Comments CHOLESTEROL (test code = 2210) 263 MG/DL TRIGLYCERIDES (test code = 2232) 413 MG/DL HDL CHOLESTEROL (test code = 43 MG/DL 2220) CALC LDL CHOL (test code = 2237) NOTE MG/DL RISK RATIO LDL/HDL (test code = (NOTE) RATIO 2238) HEMOGLOBIN [id number] 00:00:00 Test Item Value Reference Range Interpretation Comments HEMOGLOBIN A1c (test code = 49961) 6.9 % HEMOGLOBIN [id number] 00:00:00 Test Item Value Reference Range Interpretation Comments HEMOGLOBIN A1c (test code = 05584) 6.9 % HEMOGLOBIN [id number] 00:00:00 Test Item Value Reference Range Interpretation Comments HEMOGLOBIN A1c (test code = 92204) 6.9 % URIC [id number] 00:00:00 Test Item Value Reference Range Interpretation Comments URIC ACID (test code = 2233) 9.8 MG/DL URIC [id number] 00:00:00 Test Item Value Reference Range Interpretation Comments URIC ACID (test code = 2233) 9.8 MG/DL CBC W/AUTO [id number] 00:00:00 Test Item Value Reference Range Interpretation [...] code = 1015) 322 K/UL CBC W/AUTO [id number] 00:00:00 Test Item Value Reference Range Interpretation [...] code = 1015) 322 K/UL CBC W/AUTO [id number] 00:00:00 Test Item Value Reference Range Interpretation [...] code = 1015) 322 K/UL COMPREHENSIVE METABOLIC [id number] 00:00:00 Test Item Value Reference Range Interpretation Comments GLUCOSE (test code = 2217) 100 MG/DL BUN (test code = 2208) 13 MG/DL CREATININE (test code = 2214) 1.10 MG/DL eGFR AMER. (test code 91 ML/MIN/1.73 = 92959) eGFR NON- AMER. (test 78 ML/MIN/1.73 code = 58064) CALC BUN/CREAT (test code = 12 RATIO [...] code = 2219) 22 U/L COMPREHENSIVE METABOLIC [id number] 00:00:00 Test Item Value Reference Range Interpretation Comments GLUCOSE (test code = 2217) 100 MG/DL BUN (test code = 2208) 13 MG/DL CREATININE (test code = 2214) 1.10 MG/DL eGFR AMER. (test code 91 ML/MIN/1.73 = 95103) eGFR NON- AMER. (test 78 ML/MIN/1.73 code = 19570) CALC BUN/CREAT (test code = 12 RATIO 2235) SODIUM (test code = 2231) 140 MEQ/L POTASSIUM (test code = 2228) 4.2 MEQ/L CHLORIDE (test code = 2215) 97 MEQ/L CARBON DIOXIDE (test code = 32 MEQ/L 2206) CALCIUM (test code = 2209) 9.4 MG/DL PROTEIN, TOTAL (test code = 8.1 G/DL 2229) ALBUMIN (test code = 2201) 4.3 G/DL CALC GLOBULIN (test code = 3.8 G/DL 2240) CALC A/G RATIO (test code = 1.1 RATIO 2234) BILIRUBIN, TOTAL (test code = 0.4 MG/DL 2207) ALKALINE PHOSPHATASE (test 106 U/L code = 2204) AST (test code = 2218) 16 U/L ALT (test code = 2219) 22 U/L LIPID [id number] 00:00:00 Test Item Value Reference Range Interpretation Comments CHOLESTEROL (test code = 2210) 263 MG/DL TRIGLYCERIDES (test code = 2232) 413 MG/DL HDL CHOLESTEROL (test code = 43 MG/DL 0) CALC LDL CHOL (test code = 2237) NOTE MG/DL RISK RATIO LDL/HDL (test code = (NOTE) RATIO 2238) LIPID [id number] 00:00:00 Test Item Value Reference Range Interpretation Comments CHOLESTEROL (test code = 2210) 263 MG/DL TRIGLYCERIDES (test code = 2232) 413 MG/DL HDL CHOLESTEROL (test code = 43 MG/DL 2220) CALC LDL CHOL (test code = 2237) NOTE MG/DL RISK RATIO LDL/HDL (test code = (NOTE) RATIO 2238) HEMOGLOBIN [id number] 00:00:00 Test Item Value Reference Range Interpretation Comments HEMOGLOBIN A1c (test code = 75391) 6.9 % HEMOGLOBIN [id number] 00:00:00 Test Item Value Reference Range Interpretation Comments HEMOGLOBIN A1c (test code = 47210) 6.9 % HEMOGLOBIN [id number] 00:00:00 Test Item Value Reference Range Interpretation Comments HEMOGLOBIN A1c (test code = 02249) 6.9 % URIC [id number] 00:00:00 Test Item Value Reference Range Interpretation Comments URIC ACID (test code = 2233) 9.8 MG/DL URIC [id number] 00:00:00 Test Item Value Reference Range Interpretation Comments URIC ACID (test code = 2233) 9.8 MG/DL CBC W/AUTO [id number] 00:00:00 Test Item Value Reference Range Interpretation [...] code = 1015) 322 K/UL CBC W/AUTO [id number] 00:00:00 Test Item Value Reference Range Interpretation [...] code = 1015) 322 K/UL COMPREHENSIVE METABOLIC [id number] 00:00:00 Test Item Value Reference Range Interpretation Comments GLUCOSE (test code = 2217) 100 MG/DL BUN (test code = 2208) 13 MG/DL CREATININE (test code = 2214) 1.10 MG/DL eGFR AMER. (test code 91 ML/MIN/1.73 = 56300) eGFR NON- AMER. (test 78 ML/MIN/1.73 code = 10179) CALC BUN/CREAT (test code = 12 RATIO [...] (test code = 2219) 22 U/L LIPID [id number] 00:00:00 Test Item Value Reference Range Interpretation Comments CHOLESTEROL (test code = 2210) 263 MG/DL TRIGLYCERIDES (test code = 2232) 413 MG/DL HDL CHOLESTEROL (test code = 43 MG/DL 2220) CALC LDL CHOL (test code = 2237) NOTE MG/DL RISK RATIO LDL/HDL (test code = (NOTE) RATIO 2238) HEMOGLOBIN [id number] 00:00:00 Test Item Value Reference Range Interpretation Comments HEMOGLOBIN A1c (test code = 08537) 6.9 % HEMOGLOBIN [id number] 00:00:00 Test Item Value Reference Range Interpretation Comments HEMOGLOBIN A1c (test code = 39670) 6.9 % URIC [id number] 00:00:00 Test Item Value Reference Range Interpretation Comments URIC ACID (test code = 2233) 9.8 MG/DL CBC W/AUTO [id number] 00:00:00 Test Item Value Reference Range Interpretation [...] code = 1015) 322 K/UL CBC W/AUTO [id number] 00:00:00 Test Item Value Reference Range Interpretation [...] code = 1015) 322 K/UL COMPREHENSIVE METABOLIC [id number] 00:00:00 Test Item Value Reference Range Interpretation Comments GLUCOSE (test code = 2217) 100 MG/DL BUN (test code = 2208) 13 MG/DL CREATININE (test code = 2214) 1.10 MG/DL eGFR AMER. (test code 91 ML/MIN/1.73 = 12266) eGFR NON- AMER. (test 78 ML/MIN/1.73 code = 09044) CALC BUN/CREAT (test code = 12 RATIO [...] (test code = 2219) 22 U/L LIPID [id number] 00:00:00 Test Item Value Reference Range Interpretation Comments CHOLESTEROL (test code = 2210) 263 MG/DL TRIGLYCERIDES (test code = 2232) 413 MG/DL HDL CHOLESTEROL (test code = 43 MG/DL 2219) CALC LDL CHOL (test code = 2237) NOTE MG/DL RISK RATIO LDL/HDL (test code = (NOTE) RATIO 2238) HEMOGLOBIN [id number] 00:00:00 Test Item Value Reference Range Interpretation Comments HEMOGLOBIN A1c (test code = 10358) 6.9 % HEMOGLOBIN [id number] 00:00:00 Test Item Value Reference Range Interpretation Comments HEMOGLOBIN A1c (test code = 64599) 6.9 % URIC [id number] 00:00:00 Test Item Value Reference Range Interpretation Comments URIC ACID (test code = 2233) 9.8 MG/DL CBC W/AUTO [id number] 00:00:00 Test Item Value Reference Range Interpretation [...] code = 1015) 322 K/UL CBC W/AUTO [id number] 00:00:00 Test Item Value Reference Range Interpretation [...] code = 1015) 322 K/UL CBC W/AUTO [id number] 00:00:00 Test Item Value Reference Range Interpretation [...] code = 1015) 322 K/UL COMPREHENSIVE METABOLIC [id number] 00:00:00 Test Item Value Reference Range Interpretation Comments GLUCOSE (test code = 2217) 100 MG/DL BUN (test code = 2208) 13 MG/DL CREATININE (test code = 2214) 1.10 MG/DL eGFR AMER. (test code 91 ML/MIN/1.73 = 05931) eGFR NON- AMER. (test 78 ML/MIN/1.73 code = 70820) CALC BUN/CREAT (test code = 12 RATIO [...] code = 2219) 22 U/L COMPREHENSIVE METABOLIC [id number] 00:00:00 Test Item Value Reference Range Interpretation Comments GLUCOSE (test code = 2217) 100 MG/DL BUN (test code = 2208) 13 MG/DL CREATININE (test code = 2214) 1.10 MG/DL eGFR AMER. (test code 91 ML/MIN/1.73 = 41229) eGFR NON- AMER. (test 78 ML/MIN/1.73 code = 09701) CALC BUN/CREAT (test code = 12 RATIO [...] (test code = 2219) 22 U/L LIPID [id number] 00:00:00 Test Item Value Reference Range Interpretation Comments CHOLESTEROL (test code = 2210) 263 MG/DL TRIGLYCERIDES (test code = 2232) 413 MG/DL HDL CHOLESTEROL (test code = 43 MG/DL 2220) CALC LDL CHOL (test code = 2237) NOTE MG/DL RISK RATIO LDL/HDL (test code = (NOTE) RATIO 2238) LIPID [id number] 00:00:00 Test Item Value Reference Range Interpretation Comments CHOLESTEROL (test code = 2210) 263 MG/DL TRIGLYCERIDES (test code = 2232) 413 MG/DL HDL CHOLESTEROL (test code = 43 MG/DL 2220) CALC LDL CHOL (test code = 2237) NOTE MG/DL RISK RATIO LDL/HDL (test code = (NOTE) RATIO 2238) HEMOGLOBIN [id number] 00:00:00 Test Item Value Reference Range Interpretation Comments HEMOGLOBIN A1c (test code = 18427) 6.9 % HEMOGLOBIN [id number] 00:00:00 Test Item Value Reference Range Interpretation Comments HEMOGLOBIN A1c (test code = 86938) 6.9 % HEMOGLOBIN [id number] 00:00:00 Test Item Value Reference Range Interpretation Comments HEMOGLOBIN A1c (test code = 09745) 6.9 % URIC [id number] 00:00:00 Test Item Value Reference Range Interpretation Comments URIC ACID (test code = 2233) 9.8 MG/DL URIC [id number] 00:00:00 Test Item Value Reference Range Interpretation Comments URIC ACID (test code = 2233) 9.8 MG/DL URIC [id number] 00:00:00 Test Item Value Reference Range Interpretation Comments URIC ACID (test code = 2233) 9.2 MG/DL URIC [id number] 00:00:00 Test Item Value Reference Range Interpretation Comments URIC ACID (test code = 2233) 9.2 MG/DL URIC [id number] 00:00:00 Test Item Value Reference Range Interpretation Comments URIC ACID (test code = 2233) 9.2 MG/DL URIC [id number] 00:00:00 Test Item Value Reference Range Interpretation Comments URIC ACID (test code = 2233) 9.2 MG/DL URIC [id number] 00:00:00 Test Item Value Reference Range Interpretation Comments URIC ACID (test code = 2233) 9.2 MG/DL URIC [id number] 00:00:00 Test Item Value Reference Range Interpretation Comments URIC ACID (test code = 2233) 9.2 MG/DL URIC [id number] 00:00:00 Test Item Value Reference Range Interpretation Comments URIC ACID (test code = 2233) 9.2 MG/DL URIC [id number] 00:00:00 Test Item Value Reference Range Interpretation Comments URIC ACID (test code = 2233) 9.2 MG/DL URIC [id number] 00:00:00 Test Item Value Reference Range Interpretation Comments URIC ACID (test code = 2233) 9.2 MG/DL URIC [id number] 00:00:00 Test Item Value Reference Range Interpretation Comments URIC ACID (test code = 2233) 9.2 MG/DL URIC [id number] 00:00:00 Test Item Value Reference Range Interpretation Comments URIC ACID (test code = 2233) 9.2 MG/DL URIC [id number] 00:00:00 Test Item Value Reference Range Interpretation Comments URIC ACID (test code = 2233) 9.2 MG/DL URIC [id number] 00:00:00 Test Item Value Reference Range Interpretation Comments URIC ACID (test code = 2233) 9.2 MG/DL URIC [id number] 00:00:00 Test Item Value Reference Range Interpretation Comments URIC ACID (test code = 2233) 9.2 MG/DL URIC [id number] 00:00:00 Test Item Value Reference Range Interpretation Comments URIC ACID (test code = 2233) 9.2 MG/DL HEMOGLOBIN [id number] 00:00:00 Test Item Value Reference Range Interpretation Comments HEMOGLOBIN A1c (test code = 89751) 6.8 % HEMOGLOBIN [id number] 00:00:00 Test Item Value Reference Range Interpretation Comments HEMOGLOBIN A1c (test code = 12036) 6.8 % HEMOGLOBIN [id number] 00:00:00 Test Item Value Reference Range Interpretation Comments HEMOGLOBIN A1c (test code = 13056) 6.8 % LIPID [id number] 00:00:00 Test Item Value Reference Range Interpretation Comments CHOLESTEROL (test code = 2210) 233 MG/DL TRIGLYCERIDES (test code = 2232) 438 MG/DL HDL CHOLESTEROL (test code = 39 MG/DL 2220) CALC LDL CHOL (test code = 2237) NOTE MG/DL RISK RATIO LDL/HDL (test code = (NOTE) RATIO 2238) LIPID [id number] 00:00:00 Test Item Value Reference Range Interpretation Comments CHOLESTEROL (test code = 2210) 233 MG/DL TRIGLYCERIDES (test code = 2232) 438 MG/DL HDL CHOLESTEROL (test code = 39 MG/DL 2220) CALC LDL CHOL (test code = 2237) NOTE MG/DL RISK RATIO LDL/HDL (test code = (NOTE) RATIO 2238) HEMOGLOBIN [id number] 00:00:00 Test Item Value Reference Range Interpretation Comments HEMOGLOBIN A1c (test code = 82475) 6.8 % HEMOGLOBIN [id number] 00:00:00 Test Item Value Reference Range Interpretation Comments HEMOGLOBIN A1c (test code = 18535) 6.8 % LIPID [id number] 00:00:00 Test Item Value Reference Range Interpretation Comments CHOLESTEROL (test code = 2210) 233 MG/DL TRIGLYCERIDES (test code = 2232) 438 MG/DL HDL CHOLESTEROL (test code = 39 MG/DL 2220) CALC LDL CHOL (test code = 2237) NOTE MG/DL RISK RATIO LDL/HDL (test code = (NOTE) RATIO 2238) HEMOGLOBIN [id number] 00:00:00 Test Item Value Reference Range Interpretation Comments HEMOGLOBIN A1c (test code = 74994) 6.8 % HEMOGLOBIN [id number] 00:00:00 Test Item Value Reference Range Interpretation Comments HEMOGLOBIN A1c (test code = 63484) 6.8 % HEMOGLOBIN [id number] 00:00:00 Test Item Value Reference Range Interpretation Comments HEMOGLOBIN A1c (test code = 33402) 6.8 % LIPID [id number] 00:00:00 Test Item Value Reference Range Interpretation Comments CHOLESTEROL (test code = 2210) 233 MG/DL TRIGLYCERIDES (test code = 2232) 438 MG/DL HDL CHOLESTEROL (test code = 39 MG/DL 2220) CALC LDL CHOL (test code = 2237) NOTE MG/DL RISK RATIO LDL/HDL (test code = (NOTE) RATIO 2238) LIPID [id number] 00:00:00 Test Item Value Reference Range Interpretation Comments CHOLESTEROL (test code = 2210) 233 MG/DL TRIGLYCERIDES (test code = 2232) 438 MG/DL HDL CHOLESTEROL (test code = 39 MG/DL 2220) CALC LDL CHOL (test code = 2237) NOTE MG/DL RISK RATIO LDL/HDL (test code = (NOTE) RATIO 2238) HEMOGLOBIN [id number] 00:00:00 Test Item Value Reference Range Interpretation Comments HEMOGLOBIN A1c (test code = 58244) 6.8 % HEMOGLOBIN [id number] 00:00:00 Test Item Value Reference Range Interpretation Comments HEMOGLOBIN A1c (test code = 11217) 6.8 % HEMOGLOBIN [id number] 00:00:00 Test Item Value Reference Range Interpretation Comments HEMOGLOBIN A1c (test code = 37590) 6.8 % LIPID [id number] 00:00:00 Test Item Value Reference Range Interpretation Comments CHOLESTEROL (test code = 2210) 233 MG/DL TRIGLYCERIDES (test code = 2232) 438 MG/DL HDL CHOLESTEROL (test code = 39 MG/DL 2220) CALC LDL CHOL (test code = 2237) NOTE MG/DL RISK RATIO LDL/HDL (test code = (NOTE) RATIO 2238) LIPID [id number] 00:00:00 Test Item Value Reference Range Interpretation Comments CHOLESTEROL (test code = 2210) 233 MG/DL TRIGLYCERIDES (test code = 2232) 438 MG/DL HDL CHOLESTEROL (test code = 39 MG/DL 2220) CALC LDL CHOL (test code = 2237) NOTE MG/DL RISK RATIO LDL/HDL (test code = (NOTE) RATIO 2238) HEMOGLOBIN [id number] 00:00:00 Test Item Value Reference Range Interpretation Comments HEMOGLOBIN A1c (test code = 07255) 6.8 % HEMOGLOBIN [id number] 00:00:00 Test Item Value Reference Range Interpretation Comments HEMOGLOBIN A1c (test code = 26668) 6.8 % HEMOGLOBIN [id number] 00:00:00 Test Item Value Reference Range Interpretation Comments HEMOGLOBIN A1c (test code = 05233) 6.8 % LIPID [id number] 00:00:00 Test Item Value Reference Range Interpretation Comments CHOLESTEROL (test code = 2210) 233 MG/DL TRIGLYCERIDES (test code = 2232) 438 MG/DL HDL CHOLESTEROL (test code = 39 MG/DL 2220) CALC LDL CHOL (test code = 2237) NOTE MG/DL RISK RATIO LDL/HDL (test code = (NOTE) RATIO 2238) LIPID [id number] 00:00:00 Test Item Value Reference Range Interpretation Comments CHOLESTEROL (test code = 2210) 233 MG/DL TRIGLYCERIDES (test code = 2232) 438 MG/DL HDL CHOLESTEROL (test code = 39 MG/DL 2220) CALC LDL CHOL (test code = 2237) NOTE MG/DL RISK RATIO LDL/HDL (test code = (NOTE) RATIO 2238) HEMOGLOBIN [id number] 00:00:00 Test Item Value Reference Range Interpretation Comments HEMOGLOBIN A1c (test code = 08265) 6.8 % HEMOGLOBIN [id number] 00:00:00 Test Item Value Reference Range Interpretation Comments HEMOGLOBIN A1c (test code = 99307) 6.8 % HEMOGLOBIN [id number] 00:00:00 Test Item Value Reference Range Interpretation Comments HEMOGLOBIN A1c (test code = 66176) 6.8 % LIPID [id number] 00:00:00 Test Item Value Reference Range Interpretation Comments CHOLESTEROL (test code = 2210) 233 MG/DL TRIGLYCERIDES (test code = 2232) 438 MG/DL HDL CHOLESTEROL (test code = 39 MG/DL 2220) CALC LDL CHOL (test code = 2237) NOTE MG/DL RISK RATIO LDL/HDL (test code = (NOTE) RATIO 2238) LIPID [id number] 00:00:00 Test Item Value Reference Range Interpretation Comments CHOLESTEROL (test code = 2210) 233 MG/DL TRIGLYCERIDES (test code = 2232) 438 MG/DL HDL CHOLESTEROL (test code = 39 MG/DL 2220) CALC LDL CHOL (test code = 2237) NOTE MG/DL RISK RATIO LDL/HDL (test code = (NOTE) RATIO 2238) HEMOGLOBIN [id number] 00:00:00 Test Item Value Reference Range Interpretation Comments HEMOGLOBIN A1c (test code = 29573) 6.8 % HEMOGLOBIN [id number] 00:00:00 Test Item Value Reference Range Interpretation Comments HEMOGLOBIN A1c (test code = 72382) 6.8 % LIPID [id number] 00:00:00 Test Item Value Reference Range Interpretation Comments CHOLESTEROL (test code = 2210) 233 MG/DL TRIGLYCERIDES (test code = 2232) 438 MG/DL HDL CHOLESTEROL (test code = 39 MG/DL 2220) CALC LDL CHOL (test code = 2237) NOTE MG/DL RISK RATIO LDL/HDL (test code = (NOTE) RATIO 2238) HEMOGLOBIN [id number] 00:00:00 Test Item Value Reference Range Interpretation Comments HEMOGLOBIN A1c (test code = 84827) 6.8 % HEMOGLOBIN [id number] 00:00:00 Test Item Value Reference Range Interpretation Comments HEMOGLOBIN A1c (test code = 22861) 6.8 % LIPID [id number] 00:00:00 Test Item Value Reference Range Interpretation Comments CHOLESTEROL (test code = 2210) 233 MG/DL TRIGLYCERIDES (test code = 2232) 438 MG/DL HDL CHOLESTEROL (test code = 39 MG/DL 2220) CALC LDL CHOL (test code = 2237) NOTE MG/DL RISK RATIO LDL/HDL (test code = (NOTE) RATIO 2238) HEMOGLOBIN [id number] 00:00:00 Test Item Value Reference Range Interpretation Comments HEMOGLOBIN A1c (test code = 88042) 6.8 % HEMOGLOBIN [id number] 00:00:00 Test Item Value Reference Range Interpretation Comments HEMOGLOBIN A1c (test code = 39387) 6.8 % HEMOGLOBIN [id number] 00:00:00 Test Item Value Reference Range Interpretation Comments HEMOGLOBIN A1c (test code = 88652) 6.8 % LIPID [id number] 00:00:00 Test Item Value Reference Range Interpretation Comments CHOLESTEROL (test code = 2210) 233 MG/DL TRIGLYCERIDES (test code = 2232) 438 MG/DL HDL CHOLESTEROL (test code = 39 MG/DL 2220) CALC LDL CHOL (test code = 2237) NOTE MG/DL RISK RATIO LDL/HDL (test code = (NOTE) RATIO 2238) LIPID [id number] 00:00:00 Test Item Value Reference Range Interpretation Comments CHOLESTEROL (test code = 2210) 233 MG/DL TRIGLYCERIDES (test code = 2232) 438 MG/DL HDL CHOLESTEROL (test code = 39 MG/DL 2220) CALC LDL CHOL (test code = 2237) NOTE MG/DL RISK RATIO LDL/HDL (test code = (NOTE) RATIO 2238) COMPREHENSIVE METABOLIC [id number] 00:00:00 Test Item Value Reference Range Interpretation Comments GLUCOSE (test code = 2217) 115 MG/DL BUN (test code = 2208) 14 MG/DL CREATININE (test code = 2214) 1.26 MG/DL eGFR AMER. (test code 78 ML/MIN/1.73 = 29312) eGFR NON- AMER. (test 67 ML/MIN/1.73 code = 42386) CALC BUN/CREAT (test code = 11 RATIO [...] code = 2219) 20 U/L COMPREHENSIVE METABOLIC [id number] 00:00:00 Test Item Value Reference Range Interpretation Comments GLUCOSE (test code = 2217) 115 MG/DL BUN (test code = 2208) 14 MG/DL CREATININE (test code = 2214) 1.26 MG/DL eGFR AMER. (test code 78 ML/MIN/1.73 = 46887) eGFR NON- AMER. (test 67 ML/MIN/1.73 code = 59823) CALC BUN/CREAT (test code = 11 RATIO [...] (test code = 2821) 2.4 UIU/ML LIPID [id number] 00:00:00 Test Item Value Reference Range Interpretation Comments CHOLESTEROL (test code = 2210) 240 MG/DL TRIGLYCERIDES (test code = 2232) 344 MG/DL HDL CHOLESTEROL (test code = 2220) 49 MG/DL CALC LDL CHOL (test code = 2237) 122 MG/DL RISK RATIO LDL/HDL (test code = 2.49 RATIO 2238) LIPID [id number] 00:00:00 Test Item Value Reference Range Interpretation Comments CHOLESTEROL (test code = 2210) 240 MG/DL TRIGLYCERIDES (test code = 2232) 344 MG/DL HDL CHOLESTEROL (test code = 2220) 49 MG/DL CALC LDL CHOL (test code = 2237) 122 MG/DL RISK RATIO LDL/HDL (test code = 2.49 RATIO 2238) COMPREHENSIVE METABOLIC [id number] 00:00:00 Test Item Value Reference Range Interpretation Comments GLUCOSE (test code = 2217) 115 MG/DL BUN (test code = 2208) 14 MG/DL CREATININE (test code = 2214) 1.26 MG/DL eGFR AMER. (test code 78 ML/MIN/1.73 = 28830) eGFR NON- AMER. (test 67 ML/MIN/1.73 code = 22802) CALC BUN/CREAT (test code = 11 RATIO [...] code = 2219) 20 U/L COMPREHENSIVE METABOLIC [id number] 00:00:00 Test Item Value Reference Range Interpretation Comments GLUCOSE (test code = 2217) 115 MG/DL BUN (test code = 2208) 14 MG/DL CREATININE (test code = 2214) 1.26 MG/DL eGFR AMER. (test code 78 ML/MIN/1.73 = 35097) eGFR NON- AMER. (test 67 ML/MIN/1.73 code = 47799) CALC BUN/CREAT (test code = 11 RATIO [...] code = 2219) 20 U/L COMPREHENSIVE METABOLIC [id number] 00:00:00 Test Item Value Reference Range Interpretation Comments GLUCOSE (test code = 2217) 115 MG/DL BUN (test code = 2208) 14 MG/DL CREATININE (test code = 2214) 1.26 MG/DL eGFR AMER. (test code 78 ML/MIN/1.73 = 54567) eGFR NON- AMER. (test 67 ML/MIN/1.73 code = 08892) CALC BUN/CREAT (test code = 11 RATIO 2235) SODIUM (test code = 2231) 139 MEQ/L POTASSIUM (test code = 2228) 4.4 MEQ/L CHLORIDE (test code = 2215) 93 MEQ/L CARBON DIOXIDE (test code = 30 MEQ/L 6) CALCIUM (test code = 2209) 9.7 MG/DL [...] (test code = 2821) 2.4 UIU/ML LIPID [id number] 00:00:00 Test Item Value Reference Range Interpretation Comments CHOLESTEROL (test code = 2210) 240 MG/DL TRIGLYCERIDES (test code = 2232) 344 MG/DL HDL CHOLESTEROL (test code = 2220) 49 MG/DL CALC LDL CHOL (test code = 2237) 122 MG/DL RISK RATIO LDL/HDL (test code = 2.49 RATIO 2238) LIPID [id number] 00:00:00 Test Item Value Reference Range Interpretation [...] (test code = 2821) 2.4 UIU/ML LIPID [id number] 00:00:00 Test Item Value Reference Range Interpretation Comments CHOLESTEROL (test code = 2210) 240 MG/DL TRIGLYCERIDES (test code = 2232) 344 MG/DL HDL CHOLESTEROL (test code = 2220) 49 MG/DL CALC LDL CHOL (test code = 2237) 122 MG/DL RISK RATIO LDL/HDL (test code = 2.49 RATIO 2238) COMPREHENSIVE METABOLIC [id number] 00:00:00 Test Item Value Reference Range Interpretation Comments GLUCOSE (test code = 2217) 115 MG/DL BUN (test code = 2208) 14 MG/DL CREATININE (test code = 2214) 1.26 MG/DL eGFR AMER. (test code 78 ML/MIN/1.73 = 17092) eGFR NON- AMER. (test 67 ML/MIN/1.73 code = 41427) CALC BUN/CREAT (test code = 11 RATIO [...] code = 2219) 20 U/L COMPREHENSIVE METABOLIC [id number] 00:00:00 Test Item Value Reference Range Interpretation Comments GLUCOSE (test code = 2217) 115 MG/DL BUN (test code = 2208) 14 MG/DL CREATININE (test code = 2214) 1.26 MG/DL eGFR AMER. (test code 78 ML/MIN/1.73 = 97223) eGFR NON- AMER. (test 67 ML/MIN/1.73 code = 89972) CALC BUN/CREAT (test code = 11 RATIO [...] (test code = 2821) 2.4 UIU/ML LIPID [id number] 00:00:00 Test Item Value Reference Range Interpretation Comments CHOLESTEROL (test code = 2210) 240 MG/DL TRIGLYCERIDES (test code = 2232) 344 MG/DL HDL CHOLESTEROL (test code = 2220) 49 MG/DL CALC LDL CHOL (test code = 2237) 122 MG/DL RISK RATIO LDL/HDL (test code = 2.49 RATIO 2238) LIPID [id number] 00:00:00 Test Item Value Reference Range Interpretation Comments CHOLESTEROL (test code = 2210) 240 MG/DL TRIGLYCERIDES (test code = 2232) 344 MG/DL HDL CHOLESTEROL (test code = 2220) 49 MG/DL CALC LDL CHOL (test code = 2237) 122 MG/DL RISK RATIO LDL/HDL (test code = 2.49 RATIO 2238) COMPREHENSIVE METABOLIC [id number] 00:00:00 Test Item Value Reference Range Interpretation Comments GLUCOSE (test code = 2217) 115 MG/DL BUN (test code = 2208) 14 MG/DL CREATININE (test code = 2214) 1.26 MG/DL eGFR AMER. (test code 78 ML/MIN/1.73 = 54774) eGFR NON- AMER. (test 67 ML/MIN/1.73 code = 90312) CALC BUN/CREAT (test code = 11 RATIO [...] code = 2219) 20 U/L COMPREHENSIVE METABOLIC [id number] 00:00:00 Test Item Value Reference Range Interpretation Comments GLUCOSE (test code = 2217) 115 MG/DL BUN (test code = 2208) 14 MG/DL CREATININE (test code = 2214) 1.26 MG/DL eGFR AMER. (test code 78 ML/MIN/1.73 = 55589) eGFR NON- AMER. (test 67 ML/MIN/1.73 code = 57737) CALC BUN/CREAT (test code = 11 RATIO [...] (test code = 2821) 2.4 UIU/ML LIPID [id number] 00:00:00 Test Item Value Reference Range Interpretation Comments CHOLESTEROL (test code = 2210) 240 MG/DL TRIGLYCERIDES (test code = 2232) 344 MG/DL HDL CHOLESTEROL (test code = 2220) 49 MG/DL CALC LDL CHOL (test code = 2237) 122 MG/DL RISK RATIO LDL/HDL (test code = 2.49 RATIO 2238) LIPID [id number] 00:00:00 Test Item Value Reference Range Interpretation Comments CHOLESTEROL (test code = 2210) 240 MG/DL TRIGLYCERIDES (test code = 2232) 344 MG/DL HDL CHOLESTEROL (test code = 2220) 49 MG/DL CALC LDL CHOL (test code = 2237) 122 MG/DL RISK RATIO LDL/HDL (test code = 2.49 RATIO 2238) COMPREHENSIVE METABOLIC [id number] 00:00:00 Test Item Value Reference Range Interpretation Comments GLUCOSE (test code = 2217) 115 MG/DL BUN (test code = 2208) 14 MG/DL CREATININE (test code = 2214) 1.26 MG/DL eGFR AMER. (test code 78 ML/MIN/1.73 = 46812) eGFR NON- AMER. (test 67 ML/MIN/1.73 code = 40745) CALC BUN/CREAT (test code = 11 RATIO [...] code = 2219) 20 U/L COMPREHENSIVE METABOLIC [id number] 00:00:00 Test Item Value Reference Range Interpretation Comments GLUCOSE (test code = 2217) 115 MG/DL BUN (test code = 2208) 14 MG/DL CREATININE (test code = 2214) 1.26 MG/DL eGFR AMER. (test code 78 ML/MIN/1.73 = 88965) eGFR NON- AMER. (test 67 ML/MIN/1.73 code = 71049) CALC BUN/CREAT (test code = 11 RATIO [...] (test code = 2821) 2.4 UIU/ML LIPID [id number] 00:00:00 Test Item Value Reference Range Interpretation Comments CHOLESTEROL (test code = 2210) 240 MG/DL TRIGLYCERIDES (test code = 2232) 344 MG/DL HDL CHOLESTEROL (test code = 2220) 49 MG/DL CALC LDL CHOL (test code = 2237) 122 MG/DL RISK RATIO LDL/HDL (test code = 2.49 RATIO 2238) LIPID [id number] 00:00:00 Test Item Value Reference Range Interpretation Comments CHOLESTEROL (test code = 2210) 240 MG/DL TRIGLYCERIDES (test code = 2232) 344 MG/DL HDL CHOLESTEROL (test code = 2220) 49 MG/DL CALC LDL CHOL (test code = 2237) 122 MG/DL RISK RATIO LDL/HDL (test code = 2.49 RATIO 2238) COMPREHENSIVE METABOLIC [id number] 00:00:00 Test Item Value Reference Range Interpretation Comments GLUCOSE (test code = 2217) 115 MG/DL BUN (test code = 2208) 14 MG/DL CREATININE (test code = 2214) 1.26 MG/DL eGFR AMER. (test code 78 ML/MIN/1.73 = 14601) eGFR NON- AMER. (test 67 ML/MIN/1.73 code = 82305) CALC BUN/CREAT (test code = 11 RATIO [...] (test code = 2821) 2.4 UIU/ML LIPID [id number] 00:00:00 Test Item Value Reference Range Interpretation Comments CHOLESTEROL (test code = 2210) 240 MG/DL TRIGLYCERIDES (test code = 2232) 344 MG/DL HDL CHOLESTEROL (test code = 2220) 49 MG/DL CALC LDL CHOL (test code = 2237) 122 MG/DL RISK RATIO LDL/HDL (test code = 2.49 RATIO 2238) COMPREHENSIVE METABOLIC [id number] 00:00:00 Test Item Value Reference Range Interpretation Comments GLUCOSE (test code = 2217) 115 MG/DL BUN (test code = 2208) 14 MG/DL CREATININE (test code = 2214) 1.26 MG/DL eGFR AMER. (test code 78 ML/MIN/1.73 = 87492) eGFR NON- AMER. (test 67 ML/MIN/1.73 code = 22693) CALC BUN/CREAT (test code = 11 RATIO [...] CALCULATED T7 (FTI) (test code = 1.62 9430) TSH (test code = 2821) 2.4 UIU/ML LIPID [id number] 00:00:00 Test Item Value Reference Range Interpretation Comments CHOLESTEROL (test code = 2210) 240 MG/DL TRIGLYCERIDES (test code = 2232) 344 MG/DL HDL CHOLESTEROL (test code = 2220) 49 MG/DL CALC LDL CHOL (test code = 2237) 122 MG/DL RISK RATIO LDL/HDL (test code = 2.49 RATIO 2238) COMPREHENSIVE METABOLIC [id number] 00:00:00 Test Item Value Reference Range Interpretation Comments GLUCOSE (test code = 2217) 115 MG/DL BUN (test code = 2208) 14 MG/DL CREATININE (test code = 2214) 1.26 MG/DL eGFR AMER. (test code 78 ML/MIN/1.73 = 94549) eGFR NON- AMER. (test 67 ML/MIN/1.73 code = 19688) CALC BUN/CREAT (test code = 11 RATIO [...] code = 2219) 20 U/L COMPREHENSIVE METABOLIC [id number] 00:00:00 Test Item Value Reference Range Interpretation Comments GLUCOSE (test code = 2217) 115 MG/DL BUN (test code = 2208) 14 MG/DL CREATININE (test code = 2214) 1.26 MG/DL eGFR AMER. (test code 78 ML/MIN/1.73 = 78772) eGFR NON- AMER. (test 67 ML/MIN/1.73 code = 42863) CALC BUN/CREAT (test code = 11 RATIO [...] (test code = 2821) 2.4 UIU/ML LIPID [id number] 00:00:00 Test Item Value Reference Range Interpretation Comments CHOLESTEROL (test code = 2210) 240 MG/DL TRIGLYCERIDES (test code = 2232) 344 MG/DL HDL CHOLESTEROL (test code = 2220) 49 MG/DL CALC LDL CHOL (test code = 2237) 122 MG/DL RISK RATIO LDL/HDL (test code = 2.49 RATIO 2238) LIPID [id number] 00:00:00 Test Item Value Reference Range Interpretation Comments CHOLESTEROL (test code = 2210) 240 MG/DL TRIGLYCERIDES (test code = 2232) 344 MG/DL HDL CHOLESTEROL (test code = 2220) 49 MG/DL CALC LDL CHOL (test code = 2237) 122 MG/DL RISK RATIO LDL/HDL (test code = 2.49 RATIO 2238) HEMOGLOBIN [id number] 00:00:00 Test Item Value Reference Range Interpretation Comments HEMOGLOBIN A1c (test code = 63940) 7.0 % HEMOGLOBIN [id number] 00:00:00 Test Item Value Reference Range Interpretation Comments HEMOGLOBIN A1c (test code = 86354) 7.0 % HEMOGLOBIN [id number] 00:00:00 Test Item Value Reference Range Interpretation Comments HEMOGLOBIN A1c (test code = 23184) 7.0 % HEMOGLOBIN [id number] 00:00:00 Test Item Value Reference Range Interpretation Comments HEMOGLOBIN A1c (test code = 66606) 7.0 % HEMOGLOBIN [id number] 00:00:00 Test Item Value Reference Range Interpretation Comments HEMOGLOBIN A1c (test code = 95928) 7.0 % HEMOGLOBIN [id number] 00:00:00 Test Item Value Reference Range Interpretation Comments HEMOGLOBIN A1c (test code = 02289) 7.0 % HEMOGLOBIN [id number] 00:00:00 Test Item Value Reference Range Interpretation Comments HEMOGLOBIN A1c (test code = 00854) 7.0 % HEMOGLOBIN [id number] 00:00:00 Test Item Value Reference Range Interpretation Comments HEMOGLOBIN A1c (test code = 90320) 7.0 % HEMOGLOBIN [id number] 00:00:00 Test Item Value Reference Range Interpretation Comments HEMOGLOBIN A1c (test code = 47554) 7.0 % HEMOGLOBIN [id number] 00:00:00 Test Item Value Reference Range Interpretation Comments HEMOGLOBIN A1c (test code = 03078) 7.0 % HEMOGLOBIN [id number] 00:00:00 Test Item Value Reference Range Interpretation Comments HEMOGLOBIN A1c (test code = 15779) 7.0 % HEMOGLOBIN [id number] 00:00:00 Test Item Value Reference Range Interpretation Comments HEMOGLOBIN A1c (test code = 05573) 7.0 % HEMOGLOBIN [id number] 00:00:00 Test Item Value Reference Range Interpretation Comments HEMOGLOBIN A1c (test code = 47679) 7.0 % HEMOGLOBIN [id number] 00:00:00 Test Item Value Reference Range Interpretation Comments HEMOGLOBIN A1c (test code = 06170) 7.0 % HEMOGLOBIN [id number] 00:00:00 Test Item Value Reference Range Interpretation Comments HEMOGLOBIN A1c (test code = 47258) 7.0 % HEMOGLOBIN [id number] 00:00:00 Test Item Value Reference Range Interpretation Comments HEMOGLOBIN A1c (test code = 70704) 7.0 % HEMOGLOBIN [id number] 00:00:00 Test Item Value Reference Range Interpretation Comments HEMOGLOBIN A1c (test code = 03409) 7.0 % HEMOGLOBIN [id number] 00:00:00 Test Item Value Reference Range Interpretation Comments HEMOGLOBIN A1c (test code = 57153) 7.0 % HEMOGLOBIN [id number] 00:00:00 Test Item Value Reference Range Interpretation Comments HEMOGLOBIN A1c (test code = 82852) 7.0 % HEMOGLOBIN [id number] 00:00:00 Test Item Value Reference Range Interpretation Comments HEMOGLOBIN A1c (test code = 65637) 7.0 % HEMOGLOBIN [id number] 00:00:00 Test Item Value Reference Range Interpretation Comments HEMOGLOBIN A1c (test code = 27743) 7.0 % HEMOGLOBIN [id number] 00:00:00 Test Item Value Reference Range Interpretation Comments HEMOGLOBIN A1c (test code = 95882) 7.0 % HEMOGLOBIN [id number] 00:00:00 Test Item Value Reference Range Interpretation Comments HEMOGLOBIN A1c (test code = 73526) 7.0 % HEMOGLOBIN [id number] 00:00:00 Test Item Value Reference Range Interpretation Comments HEMOGLOBIN A1c (test code = 37525) 7.0 % CBC W/AUTO [id number] 00:00:00 Test Item Value Reference Range Interpretation [...] code = 1015) 321 K/UL CBC W/AUTO [id number] 00:00:00 Test Item Value Reference Range Interpretation [...] code = 1015) 321 K/UL CBC W/AUTO [id number] 00:00:00 Test Item Value Reference Range Interpretation [...] code = 1015) 321 K/UL CBC W/AUTO [id number] 00:00:00 Test Item Value Reference Range Interpretation [...] code = 1015) 321 K/UL CBC W/AUTO [id number] 00:00:00 Test Item Value Reference Range Interpretation [...] code = 1015) 321 K/UL CBC W/AUTO [id number] 00:00:00 Test Item Value Reference Range Interpretation [...] code = 1015) 321 K/UL CBC W/AUTO [id number] 00:00:00 Test Item Value Reference Range Interpretation [...] code = 1015) 321 K/UL CBC W/AUTO [id number] 00:00:00 Test Item Value Reference Range Interpretation [...] code = 1015) 321 K/UL CBC W/AUTO [id number] 00:00:00 Test Item Value Reference Range Interpretation [...] code = 1015) 321 K/UL CBC W/AUTO [id number] 00:00:00 Test Item Value Reference Range Interpretation [...] code = 1015) 321 K/UL CBC W/AUTO [id number] 00:00:00 Test Item Value Reference Range Interpretation [...] code = 1015) 321 K/UL CBC W/AUTO [id number] 00:00:00 Test Item Value Reference Range Interpretation [...] code = 1015) 321 K/UL CBC W/AUTO [id number] 00:00:00 Test Item Value Reference Range Interpretation [...] code = 1015) 321 K/UL CBC W/AUTO [id number] 00:00:00 Test Item Value Reference Range Interpretation [...] code = 1015) 321 K/UL CBC W/AUTO [id number] 00:00:00 Test Item Value Reference Range Interpretation [...] code = 1015) 321 K/UL CBC W/AUTO [id number] 00:00:00 Test Item Value Reference Range Interpretation [...] code = 1015) 321 K/UL CBC W/AUTO [id number] 00:00:00 Test Item Value Reference Range Interpretation [...] code = 1015) 321 K/UL CBC W/AUTO [id number] 00:00:00 Test Item Value Reference Range Interpretation [...] code = 1015) 321 K/UL CBC W/AUTO [id number] 00:00:00 Test Item Value Reference Range Interpretation [...] code = 1015) 321 K/UL CBC W/AUTO [id number] 00:00:00 Test Item Value Reference Range Interpretation [...] code = 1015) 321 K/UL CBC W/AUTO [id number] 00:00:00 Test Item Value Reference Range Interpretation [...] code = 1015) 321 K/UL CBC W/AUTO [id number] 00:00:00 Test Item Value Reference Range Interpretation [...] code = 1015) 321 K/UL CBC W/AUTO [id number] 00:00:00 Test Item Value Reference Range Interpretation [...] code = 1015) 321 K/UL CBC W/AUTO [id number] 00:00:00 Test Item Value Reference Range Interpretation [...]
[2023-09-14] MEDS ORDERED: PANTOPRAZOLE 40 MG INJ ONE ×2 (21:52→21:53)
[2023-09-14] MEDS ORDERED: METOCLOPRAMIDE 10 MG/2mL INJ ONE (21:52)
[2023-09-14] MEDS ORDERED: NA CHLORIDE 0.9% 1,000 ML ONE (21:52)
[2023-09-14] MEDS ORDERED: ONDANSETRON 4 MG/2 ML VIAL ONE (21:52)
[2023-09-14] MEDS ORDERED: FAMOTIDINE 20 MG/2 ML VIAL IV ONE (21:52)
[2023-09-14] MEDS ORDERED: OCTREOTIDE ACETATE 100 MCG/ML ONE (21:52)
[2023-09-14] MEDS ORDERED: NA CHLORIDE 0.9% 250 ML ONE (21:53)
[2023-09-14 22:22] LABS: Protime INR 1.05
[2023-09-14 22:24] LABS: Absolute Lymphocytes (CBC) 1.8 K/uL (0.7-4.9); Hematocrit 35.5 % (39.6-49.0); MCV 75.7 fL (80-100); MPV 9.5 fL (7.6-11.3); Platelets 270 thou/uL (152-406); RBC Red Blood Cell Count 4.69 M/uL (4.33-5.43)
--- NOTE | 2023-09-14 22:51 | ER ---
Nurse's Notes [facility] Name: Russel Sotelo Age: 53 yrs Sex: Male : 1970 Arrival Date: 09/14/2023 Time: 21:06 Bed 13 Private MD: Diagnosis: Acute on chronic diastolic (congestive) heart failure;Melena;Acute upper GI bleed, exacerbation of congestive heart failure Presentation: 09/14 21:11 Chief complaint: EMS states: Black tarry stools tonight, weakness, oxygen saturation nj1 90% upon EMS arrival, placed on NON rebreather. 21:11 Coronavirus screen: Vaccine status: Patient reports receiving the 2nd dose of the covid nj1 vaccine. Ebola Screen: Patient denies travel to an Ebola-affected area in the 21 days before illness onset. Initial Sepsis Screen: Does the patient meet any 2 criteria? HR > 90 bpm. No. Patient's initial sepsis screen is negative. Does the patient have a suspected source of infection? No. Patient's initial sepsis screen is negative. Risk Assessment: Do you want to hurt yourself or someone else? Patient reports no desire to harm self or others. Onset of symptoms was September 14, 2023. 21:11 Method Of Arrival: EMS: [facility] nj1 21:11 Acuity: TRUE 3 nj1 21:11 Care prior to arrival: Medication(s) given: Normal saline infusion, 500 mL, IV nj1 initiated. 20 GA, in the left hand, Glucose check: 377. Historical: - Allergies: 21:22 No Known Allergies; nj1 - PMHx: 21:22 Chronic obstructive lung disease; Congestive heart failure; diabetes mellitus; nj1 Hypercholesterolemia; Hypertensive disorder; Sleep apnea; - PSHx: 21:22 hole in intestines repaired; nj1 - Immunization history:: Client reports receiving the 2nd dose of the Covid vaccine. - Social history:: Smoking status: Patient denies any tobacco usage or history of. Screenin:53 [facility] ED Fall Risk Assessment (Adult) History of falling in the last 3 months, nw1 including since admission No falls in past 3 months (0 pts) Confusion or Disorientation No (0 pts) Intoxicated or Sedated No (0 pts) Impaired Gait No (0 pts) Mobility Assist Device Used No (0 pt) Altered Elimination No (0 pt) Score/Fall Risk Level 0 - 2 = Low Risk Oriented to surroundings, Maintained a safe environment, Educated pt \T\ family on fall prevention, incl call for assistance when getting out of bed, Assessed \T\ reinforced patient's understanding of fall precautions, Provided non-skid footwear, Hourly rounding (assess needs \T\ fall precautionary measures) done, Used ambulatory aids as needed (educated on \T\ assisted with). Abuse screen: Denies threats or abuse. Denies injuries from another. Nutritional screening: No deficits noted. Tuberculosis screening: No symptoms or risk factors identified. Assessment: 21:28 Reassessment: Report received from OLAYINKA Sommers. Assumed care at this time. Will assess pt nw1 after all report is given. 22:16 Reassessment: Pt states he needs to use the restroom. Offered bedside commode and nw1 refused. Pt up to restroom without oxygen. Pt has made two threats of leaving the ER if not getting his way. 23:45 Reassessment: Pt keeps taking off oxygen, bp cuff, electrodes, spo2 monitor. Keep nw1 replacing everything and patient keeps taking it off. Notified charge nurse. Pt not on monitor at this time. General: Appears uncomfortable, obese, Behavior is appropriate for age, anxious, restless, uncooperative. Pain: Denies pain. Neuro: No deficits noted. Cardiovascular: Reports shortness of breath, Denies chest pain. Respiratory: Reports shortness of breath labored breathing. GI: Abdomen is obese, Reports rectal bleeding, bloody stool. Musculoskeletal: No deficits noted. 09/15 02:00 Reassessment: PT VERBALLY CONSENTED FOR TRANSFUSION. ON MONITOR WITH NIBP AND SP02. DR bp PAZ AT B/S FOR CONSENT AND CVC PLACEMENT. 03:04 Reassessment: updated report to Geronimo \T\ [phone] going to 426. nw1 03:10 Reassessment: PT JONATHAN WITH [facility]. bp Vital Signs: 09/14 21:11 BP 110 / 69; Pulse 96; Resp 18; Temp 98.4; Pulse Ox 88% on R/A; Weight 140.61 kg; nj1 Height 5 ft. 9 in. ; 22:31 BP 122 / 67; Pulse 86; Pulse Ox 99% on 2 lpm NC; nw1 09/15 00:47 BP 79 / 60; Pulse 86; Resp 17; Pulse Ox 87% on 2 lpm NC; nw1 00:57 BP 62 / 41; Pulse 95; Resp 16; Pulse Ox 95% on 4 lpm NC; nw1 01:00 BP 74 / 44 LA; Pulse 95; Resp 16; Pulse Ox 100% on 4 lpm NC; nw1 03:06 BP 115 / 69; Pulse 92; Resp 20; Temp 98.8(O); Pulse Ox 100% on 4 lpm NC; nw1 09/14 21:11 Body Mass Index 45.78 (140.61 kg, 175.26 cm) nj1 00:47 MD notified nw1 00:57 MD notified nw1 01:00 MD notified nw Jesse Coma Score: 09/14 22:31 Eye Response: spontaneous(4). Motor Response: obeys commands(6). Verbal Response: nw1 oriented(5). Total: 15. 22:49 Eye Response: spontaneous(4). Motor Response: obeys commands(6). Verbal Response: sp4 oriented(5). Total: 15. ED Course: 21:16 Patient arrived in ED. rv1 21:16 Michoacano Paz MD is Attending Physician. sp4 21:22 Triage completed. nj1 21:23 Arm band placed on. nj1 21:27 Rin Browne, RN is Primary Nurse. nw1 22:15 No provider procedures requiring assistance completed. Inserted saline lock: 18 gauge nw1 in right forearm, using aseptic technique. Blood collected. 22:15 Oxygen administration via nasal cannula \T\ 4L/min. nw1 22:16 Basic Metabolic Panel Sent. nw1 22:16 CBC with Diff Sent. nw1 22:16 LFT's Sent. nw1 22:16 NT PRO-BNP Sent. nw1 22:16 PT-INR Sent. nw1 22:16 Troponin HS Sent. nw1 23:11 Initiated transfer with Kaylin at [facility]. rv1 23:42 CT Abd/Pelvis - IV Contrast Only In Process Unspecified. EDMS 23:54 Patient has correct armband on for positive identification. Placed in gown. Bed in low nw1 position. Call light in reach. Side rails up X2. Provided Education on: POC. Door closed. Noise minimized. Warm blanket given. Verbal reassurance given. 09/15 00:49 Called Karan with EMS for transfer truck, given hour and a half to two hour ETA.. rv1 Called [facility] with [facility] given 45 min to an hour ETA. 01:27 Packed RBC Leukored Sent. nw1 02:00 Assisted provider with central line placement. Set up central line tray. Triple lumen bp line placed in right internal jugular. Line placed by Michoacano Paz MD Placement verified by blood return, Blood was collected. Patient tolerated well. Before procedure, did Practitioner(s) obtain informed consent? Yes. Time-out/Briefing performed prior to start of procedure? Yes. Was handwashing/sanitizing done immediately prior to procedure? Yes. Was patient positioned to in a way to prevent air embolism? Yes. Was procedure site sterilized? Yes, with chlorhexidine. Was the site allowed to dry? Yes. Was local anesthetic and/or sedation utilized? Yes. During the procedure, did the Practitioner(s) maintain a sterile field? Yes. Were unused ports clamped during insertion? Yes. Was a 2nd qualified MD obtained after 3 unsuccessful insertion attempts? N/A. Was blood aspirated from each lumen? Yes. After the procedure, did the Practitioner(s) clean the site and apply a sterile dressing? Yes. 02:19 Chest Single View XRAY In Process Unspecified. EDMS 02:22 Hematocrit Sent. rv1 02:22 Hemoglobin Sent. rv1 03:11 Patient transferred, IV remains in place. bp Administered Medications: 09/14 22:48 Discontinued: ns 0.9% 1000 ml IV at 125 ml/hr continuous sp4 22:13 Drug: Pantoprazole IV 8 mg/hr IV at 25 ml/hr continuous; (Standard dilution is 80 mg in nw1 250 mL NS) Route: IV; Rate: 25 ml/hr; Site: right forearm; 22:13 Drug: Pantoprazole IVP 80 mg IVP once Route: IVP; Site: right forearm; nw1 22:15 Drug: NS 0.9% IV 1000 ml IV at 125 ml/hr continuous Route: IV; Rate: 125 ml/hr; Site: nw1 right forearm; 23:13 Follow up: IV Status: Order to discontinue infusion nw1 22:15 Drug: Octreotide IV 50 mcg IV at bolus once Route: IV; Rate: bolus; Site: right forearm;nw1 22:15 Drug: Ondansetron IVP 4 mg IVP once; over 2 minutes Route: IVP; Site: right forearm; nw1 22:15 Drug: metoCLOPramide IVP 10 mg IVP once; over 1 to 2 minutes Route: IVP; Site: right nw1 forearm; 22:15 Drug: Famotidine IVP 20 mg IVP once; dilute with 10 mL 0.9% NaCl; give over 2 minutes nw1 Route: IVP; Site: right forearm; 23:12 Drug: Diazepam IVP 5 mg IVP once Route: IVP; Site: left forearm; nw1 23:12 Drug: Furosemide IVP 40 mg IVP once; give over 2 minutes Route: IVP; Site: left forearm;nw1 09/15 00:43 Drug: Insulin Regular Human IVP 10 units IVP once {Co-Signature: pf1 (Vielka Sims nw1 RN).} Route: IVP; Site: right forearm; 01:11 Drug: NS 0.9% IV 1000 ml IV at 1 bolus Per protocol; 1000 mL bolus Route: IV; Rate: 1 nw1 bolus; Site: right forearm; 01:26 Drug: Lidocaine Infiltration (1 %) 20 ml 20 ml Infiltration once; to bedside {Note: nw1 given to MD Ríos.} Volume: 20 ml; Route: Infiltration; 01:55 Drug: Albumin IVPB 25 grams 100 ml IVPB once; (Note: Albumin 25% concentration) Volume: nw1 100 ml; Route: IVPB; Site: Other; Medication: 09/14 23:54 VIS not applicable for this client. nw1 Outcome: 22:51 ER care complete, transfer ordered by MD. mccall 09/15 03:11 Transferred by ground EMS to [facility], [facility] [place], bp Condition: stable Instructed on the need for transfer, 03:11 Patient left the ED. bp Signatures: Dispatcher [employer] Donnell Moss, RN RN Kezia Hunt rvMichoacano West MD MD sp4 Jaco, Norma RN RN nj1 Rin Browne RN RN nw1 Vielka Sims RN pf1 Corrections: (The following items were deleted from the chart) 09/14 23:13 23:12 Diazepam IVP 5 mg IVP in left antecubital nw1 nw1
--- NOTE | 2023-09-14 22:51 | EDPHYS ---
Physician Documentation [facility] Name: Russel Sotelo Age: 53 yrs Sex: Male : 1970 Arrival Date: 09/14/2023 Time: 21:06 Bed 13 Private MD: ED Physician Michoacano Paz HPI: 09/14 21:19 This 53 yrs old Black Male presents to ER via Unassigned with complaints of near sp4 syncope with black stool. 22:40 53-year-old male with past medical history congestive heart failure morbid obesity sp4 hypertension insulin-dependent diabetes hyperlipidemia and GI bleed. Patient presents for acute onset of black-colored stool with bowel movement associated with onset of dizziness and near syncopal episode at home. Patient states he was on the commode when he experienced near syncopal episode. EMS brought patient in patient at this time denies syncope. Reports shortness of breath. Patient states he has a history of prior gastrointestinal bleed.. EGD from 12/10/2021 reports that patient underwent EGD secondary to hematemesis and anemia. EGD with biopsy to perform for control of bleeding. There were no complications patient was found to have mild gastritis with nodular mucosa in the body and inflammation erythema in the prepyloric antrum of the stomach. Status post biopsies, large 2 cm ulcer with central small visible nonbleeding vessel in the bulb of the duodenum, status post 4 cc epinephrine injection, no active bleeding noted, this was 12/10/2021.. Patient was recently admitted for acute on chronic diastolic CHF, chest pain and he was managed with IV Lasix, he responded to diuresis, he uses CPAP at home, admission was 08/18/2023 with discharge on 08/19/2023. Patient's medications include amlodipine, atorvastatin, metformin, allopurinol, fark [employer], Trulicity, aspirin daily, metoprolol 25 twice daily, potassium chloride, furosemide 20 mg p.o. daily.. Historical: - Allergies: 21:22 No Known Allergies; nj1 - PMHx: 21:22 Chronic obstructive lung disease; Congestive heart failure; diabetes mellitus; nj1 Hypercholesterolemia; Hypertensive disorder; Sleep apnea; - PSHx: 21:22 hole in intestines repaired; nj1 - Immunization history:: Client reports receiving the 2nd dose of the Covid vaccine. - Social history:: Smoking status: Patient denies any tobacco usage or history of. ROS: 22:44 Constitutional: Negative for fever, chills, and weight loss, positive near syncope sp4 positive shortness of breath positive black stool Eyes: Negative for injury, pain, redness, and discharge, ENT: Negative for injury, pain, and discharge, Neck: Negative for injury, pain, and swelling, Cardiovascular: Negative for chest pain, palpitations, and edema, Respiratory: Positive dyspnea and shortness of breath. Abdomen/GI: Negative for abdominal pain, nausea, vomiting, diarrhea, and constipation positive episode of black stool 22:44 All other systems are negative, Exam: 22:44 Constitutional: This is a well developed, well nourished patient who is awake, alert, sp4 overweight male anxious appearing Head/Face: Normocephalic, atraumatic. Eyes: Pupils equal round and reactive to light, extra-ocular motions intact. Lids and lashes normal. Conjunctiva and sclera are not injected. Cornea within normal limits. Periorbital areas with no swelling, redness, or edema. ENT: Nares patent. No nasal discharge, no septal abnormalities noted. Tympanic membranes are normal and external auditory canals are clear. Oropharynx with no redness, swelling, or masses, exudates, or evidence of obstruction, uvula midline. Mucous membranes moist. Neck: Trachea midline, no thyromegaly or masses palpated, and no cervical lymphadenopathy. Supple, full range of motion without nuchal rigidity, or vertebral point tenderness. Chest/axilla: Normal chest wall appearance and motion. Nontender with no deformity. No lesions are appreciated. Cardiovascular: Regular rate and rhythm with a normal S1 and S2. No gallops, murmurs, or rubs. Normal PMI, no JVD. No pulse deficits. Respiratory: Lungs have equal breath sounds bilaterally, clear to auscultation and percussion. No rales, rhonchi or wheezes noted. No increased work of breathing, no retractions or nasal flaring. Abdomen/GI: Soft, non-tender, with normal bowel sounds. No distension or tympany. No guarding or rebound. No evidence of tenderness throughout. Digital rectal exam reveals black-colored stool consistent with melena, no blood, no fissures, no fistulas, no other significant findings Back: No spinal tenderness. No costovertebral tenderness. Skin: Warm, dry with normal turgor. Normal color with no rashes, no lesions, and no evidence of cellulitis. MS/ Extremity: Pulses equal, no cyanosis. Neurovascular intact. Full, normal range of motion. Neuro: Awake and alert, GCS 15, oriented to person, place, time, and situation. Cranial nerves II-XII grossly intact. Motor strength 5/5 in all extremities. Sensory grossly intact. Psych: Awake, alert, with orientation to person, place and time. Anxious appearing male 22:49 ECG was reviewed by the Attending Physician. There is normal sinus rhythm with normal sp4 EKG at 2134, ventricular rate 92, no ST elevation or depression, no ectopy Vital Signs: 21:11 BP 110 / 69; Pulse 96; Resp 18; Temp 98.4; Pulse Ox 88% on R/A; Weight 140.61 kg; nj1 Height 5 ft. 9 in. ; 22:31 BP 122 / 67; Pulse 86; Pulse Ox 99% on 2 lpm NC; nw1 09/15 00:47 BP 79 / 60; Pulse 86; Resp 17; Pulse Ox 87% on 2 lpm NC; nw1 00:57 BP 62 / 41; Pulse 95; Resp 16; Pulse Ox 95% on 4 lpm NC; nw1 01:00 BP 74 / 44 LA; Pulse 95; Resp 16; Pulse Ox 100% on 4 lpm NC; nw1 03:06 BP 115 / 69; Pulse 92; Resp 20; Temp 98.8(O); Pulse Ox 100% on 4 lpm NC; nw1 09/14 21:11 Body Mass Index 45.78 (140.61 kg, 175.26 cm) nj1 00:47 MD notified nw 00:57 MD notified nw 01:00 MD notified nw Jesse Coma Score: 09/14 22:31 Eye Response: spontaneous(4). Motor Response: obeys commands(6). Verbal Response: nw1 oriented(5). Total: 15. 22:49 Eye Response: spontaneous(4). Motor Response: obeys commands(6). Verbal Response: sp4 oriented(5). Total: 15. Procedures: 09/15 01:53 Central Line: the site was prepped with Chlorhexidine, a triple lumen catheter was sp4 inserted, in the right internal jugular vein, in 1 attempts. placement was verified, by CXR, by blood return, Ultrasound-guided procedure, the site was dressed with Tegaderm, using sterile technique, the patient tolerated the procedure, well, Triple-lumen line placed without complications with ultrasound guidance. MDM: 09/14 21:16 Patient medically screened. sp4 22:51 Differential Diagnosis altered mental status, sepsis, flu. Data reviewed: vital signs, sp4 nurses notes, EMS record, old medical records, lab test result(s), cardiac enzymes, CBC, electrolytes, hepatic panel, EKG. Consideration of Admission/Observation Escalation of care including admission/observation considered. Management of patient was discussed with the following: Clothes Marker: GI at [facility]. ED course: Patient warrants transfer , . 09/15 00:29 ED course: CT report - FINDINGS: Lung Bases: Minimal basilar atelectasis. Abdomen: sp4 Liver: The liver has normal contour and density. No suspicious mass. Gallbladder: No calcified gallstones. No significant biliary dilatation. Spleen, Pancreas, and Adrenal Glands: The spleen, pancreas, and adrenal glands are unremarkable. Kidneys: No suspicious mass. No urinary tract calculi. No hydronephrosis. Vasculature: The aorta and IVC have normal caliber and position. The portal vein is patent. The proximal visceral and renal arteries are patent. Stomach: The stomach and duodenum have normal course. Other: No free intraperitoneal air. No free fluid or lymphadenopathy. Pelvis: Bladder: Urinary bladder is unremarkable. Bowel: No dilated loops of large or small bowel. Mild colon diverticulosis. Appendix: Normal appendix. Pelvis: No suspicious mass. Bones: No destructive bone lesions identified. IMPRESSION: 1. No acute abnormality on CT of the abdomen and pelvis. 2. Mild colon diverticulosis.. 00:30 ED course: Patient accepted by Dr Apodaca at the [facility]. sp4 01:53 Response to treatment: the patient's symptoms have mildly improved after treatment. sp4 02:55 ED course: Chest X ray after CVL - TECHNIQUE: Frontal view of the chest. COMPARISON: No sp4 relevant prior studies available. FINDINGS: Lungs: Unremarkable. No consolidation. Pleural space: Unremarkable. No pneumothorax. Heart: Unremarkable. Mediastinum: Unremarkable. Bones/joints: No acute findings. Tubes, lines and devices: Right IJ central venous catheter with tip in the SVC. IMPRESSION: Right IJ central venous catheter with tip in the SVC. . 09/14 21:16 Order name: Type And Screen [facility] 09/14 21:16 Order name: Basic Metabolic Panel; Complete Time: 23:38 4 09/14 21:16 Order name: CBC with Diff; Complete Time: 22:32 4 09/14 21:16 Order name: LFT's; Complete Time: 23:38 4 09/14 21:16 Order name: NT PRO-BNP; Complete Time: 23:38 4 09/14 21:16 Order name: PT-INR; Complete Time: 22:32 4 09/14 21:16 Order name: Troponin HS; Complete Time: 23:38 [facility] 09/15 01:21 Order name: Packed RBC Leukored [facility] 09/15 01:51 Order name: Hemoglobin; Complete Time: 02:54 bp 09/15 01:51 Order name: Hematocrit; Complete Time: 02:54 bp 09/14 21:17 Order name: CT Abd/Pelvis - IV Contrast Only [facility] 09/15 01:53 Order name: Chest Single View XRAY [facility] 09/14 21:16 Order name: EKG; Complete Time: 21:17 [facility] 09/14 21:16 Order name: Cardiac monitoring; Complete Time: 22:15 4 09/14 21:16 Order name: EKG - Nurse/Tech; Complete Time: 21:37 4 09/14 21:16 Order name: IV Saline Lock; Complete Time: 22:15 4 09/14 21:16 Order name: Labs collected and sent; Complete Time: 22:15 4 09/14 21:16 Order name: O2 Per Protocol; Complete Time: 22:16 4 09/14 21:16 Order name: O2 Sat Monitoring; Complete Time: 22:16 4 09/14 21:17 Order name: Saline Lock; Complete Time: 22:15 4 09/15 01:06 Order name: Consent for Blood Transfusion; Complete Time: 02:43 sp4 09/15 01:06 Order name: IV Saline Lock; Complete Time: 01:26 4 09/15 01:16 Order name: Central Line Kit; Complete Time: : 4 09/15 02:06 Order name: Accucheck Blood Glucose [facility] EC/31 22:49 Rate is 92 beats/min. Rhythm is regular, Normal Sinus Rhythm. QRS [place] is Normal. CO sp4 interval is normal. QRS interval is normal. QT interval is normal. T waves are Normal. No ST changes noted. Clinical impression: Normal ECG. Interpreted by me. Administered Medications: 22:48 Discontinued: ns 0.9% 1000 ml IV at 125 ml/hr continuous sp4 22:13 Drug: Pantoprazole IV 8 mg/hr IV at 25 ml/hr continuous; (Standard dilution is 80 mg in nw1 250 mL NS) Route: IV; Rate: 25 ml/hr; Site: right forearm; 22:13 Drug: Pantoprazole IVP 80 mg IVP once Route: IVP; Site: right forearm; nw1 22:15 Drug: NS 0.9% IV 1000 ml IV at 125 ml/hr continuous Route: IV; Rate: 125 ml/hr; Site: nw right forearm; 23:13 Follow up: IV Status: Order to discontinue infusion 22:15 Drug: Octreotide IV 50 mcg IV at bolus once Route: IV; Rate: bolus; Site: right forearm;nw1 22:15 Drug: Ondansetron IVP 4 mg IVP once; over 2 minutes Route: IVP; Site: right forearm; nw 22:15 Drug: metoCLOPramide IVP 10 mg IVP once; over 1 to 2 minutes Route: IVP; Site: right nw1 forearm; 22:15 Drug: Famotidine IVP 20 mg IVP once; dilute with 10 mL 0.9% NaCl; give over 2 minutes [facility] Route: IVP; Site: right forearm; 23:12 Drug: Diazepam IVP 5 mg IVP once Route: IVP; Site: left forearm; nw 23:12 Drug: Furosemide IVP 40 mg IVP once; give over 2 minutes Route: IVP; Site: left forearm;[facility] 09/15 00:43 Drug: Insulin Regular Human IVP 10 units IVP once {Co-Signature: pf1 (Vielka Sims 1 RN).} Route: IVP; Site: right forearm; 01:11 Drug: NS 0.9% IV 1000 ml IV at 1 bolus Per protocol; 1000 mL bolus Route: IV; Rate: 1 nw bolus; Site: right forearm; 01:26 Drug: Lidocaine Infiltration (1 %) 20 ml 20 ml Infiltration once; to bedside {Note: nw1 given to MD Ríos.} Volume: 20 ml; Route: Infiltration; :55 Drug: Albumin IVPB 25 grams 100 ml IVPB once; (Note: Albumin 25% concentration) Volume: nw1 100 ml; Route: IVPB; Site: Other; Disposition Summary: 09/14/23 22:51 Transfer Ordered Notes: Transfer Location: [facility] sp4 Reason: Higher level of care sp4 Condition: Stable sp4 Problem: new sp4 Symptoms: are unchanged sp4 [facility] bp Diagnosis - Acute on chronic diastolic (congestive) heart failure sp4 - Melena sp4 - Acute upper GI bleed, exacerbation of congestive heart failure sp4 Forms: - Medication Reconciliation Form sp4 - SBAR form sp4 Critical care time excluding procedures: 09/14 22:51 Critical care time: Bedside Care: 36 minutes, Consultation: 12 minutes, Family sp4 Intervention: 12 minutes. Total time: 60 minutes Signatures: Dispatcher [employer] EDMS Donnell Alcala, RN RN bp Kezia West rv1 Michoacano Paz MD MD sp4 Tootie Gant, RN RN nj1 Rin Browne, OLAYINKA RN nw1 Vielka Sims RN pf1 Corrections: (The following items were deleted from the chart) 23:11 22:51 [facility] sp4 rv1 09/15 00:39 09/14 23:11 [facility] rv1 rv1 09/15 01:20 01:06 PACKED RBC LEUKORED+BB.LAB.BRZ ordered. EDMS EDMS 01:20 01:08 ABO/RH typing ordered. EDMS EDMS 01:20 01:08 Antibody Screen ordered. EDMS EDMS 03:11 00:39 [facility] rv1 bp
[2023-09-14 23:07] LABS: ALT/SGPT 19 U/L (16-61); AST/SGOT 5 U/L (15-37); Albumin 2.6 g/dL (3.4-5.0); Alkaline Phosphatase 82 U/L (45-117); BUN Blood Urea Nitrogen 48 mg/dL (7-18); Bicarbonate 31 mEq/L (21-32); Bilirubin Direct < 0.1 mg/dL (0-0.2); Bilirubin Indirect, Calculated ND mg/dL (0.2-0.8); Bilirubin Total 0.3 mg/dL (0.2-1.0); Glomerular Filtration Rate 69 ml/min (=/>90); NT PRO-BNP 8 pg/mL (<125); Potassium 5.3 mEq/L (3.5-5.1); Protein, Total 6.5 g/dL (6.4-8.2); Sodium Level 135 mEq/L (136-145); Troponin High Sensitivity 21.1 pg/mL (<58.9)
[2023-09-14 23:08] LABS: Glucose Level 419 mg/dL (74-106)
[2023-09-14] MEDS ORDERED: DIAZEPAM 10 MG/2 ML INJ SYRINGE ONE (23:19)
[2023-09-14] MEDS ORDERED: FUROSEMIDE 40 MG/4 ML VIAL ONE (23:19)
[2023-09-15] MEDS ORDERED: INSULIN REGULAR (HUMAN) 100 UNIT/ML ONE ×2 (00:42→00:48)
[2023-09-15] MEDS ORDERED: LIDOCAINE 1% 20 ML MDV ONE (01:30)
[2023-09-15] MEDS ORDERED: NOREPINEPHRINE BITARTRATE/D5W 0 MG/0 ML BAG IV ONE (01:32)
[2023-09-15] MEDS ORDERED: ALBUMIN HUMAN 25% 100 ML IV ONE (01:33)
[2023-09-15] MEDS ORDERED: NA CHLORIDE 0.9% 250 ML ONE (01:59)
[2023-09-15 02:40] LABS: Hematocrit 31.8 % (39.6-49.0)
[2023-09-15 03:40] VITALS: O2SAT 100
[2023-09-15 03:41] VITALS: BP 115/69; TEMP 98.8
--- NOTE | 2023-09-15 10:51 | RAD REPORT ---
EXAM DESCRIPTION: Abdomen Pelvis W Contrast CLINICAL HISTORY: GI BLEED COMPARISON: 12/08/2021 TECHNIQUE: CT of the abdomen and pelvis performed following the administration of IV contrast. No or al contrast. This exam was performed according to our departmental dose-optimization program, which i ncludes automated exposure control, adjustment of the mA and/or kV according to patient size and/or u se of iterative reconstruction technique. FINDINGS: Lung Bases: Minimal basilar atelectasis. Abdomen: Liver: The liver has normal contour and density. No suspicious mass. Gallbladder: No calcified gallstones. No significant biliary dilatation. Spleen, Pancreas, and Adrenal Glands: The spleen, pancreas, and adrenal glands are unremarkable. Kidneys: No suspicious mass. No urinary tract calculi. No hydronephrosis. Vasculature: The aorta and IVC have normal caliber and position. The portal vein is patent. The pro ximal visceral and renal arteries are patent. Stomach: The stomach and duodenum have normal course. Other: No free intraperitoneal air. No free fluid or lymphadenopathy. Pelvis: Bladder: Urinary bladder is unremarkable. Bowel: No dilated loops of large or small bowel. Mild colon diverticulosis. Appendix: Normal appendix. Pelvis: No suspicious mass. Bones: No destructive bone lesions identified. IMPRESSION: 1. No acute abnormality on CT of the abdomen and pelvis. 2. Mild colon diverticulosis. Electronically signed by: Renee Miller MD 09/14/2023 11:59 PM CDT Due to temporary technical issues with the PACS/Fluency reporting system, reports are being signed by the in house radiologists without review as a courtesy to insure prompt reporting. The interpreting radiologist is fully responsible for the content of the report.
--- NOTE | 2023-09-15 10:52 | RAD REPORT ---
EXAM DESCRIPTION: XR Chest, 1 View CLINICAL HISTORY: The patient is 53 years old and is Male; after central line R IJ TECHNIQUE: Frontal view of the chest. COMPARISON: No relevant prior studies available. FINDINGS: Lungs: Unremarkable. No consolidation. Pleural space: Unremarkable. No pneumothorax. Heart: Unremarkable. Mediastinum: Unremarkable. Bones/joints: No acute findings. Tubes, lines and devices: Right IJ central venous catheter with tip in the SVC. IMPRESSION: Right IJ central venous catheter with tip in the SVC. Electronically signed by: Steve Chopra MD 09/15/2023 2:26 AM CDT Due to temporary technical issues with the PACS/Fluency reporting system, reports are being signed by the in house radiologists without review as a courtesy to insure prompt reporting. The interpreting radiologist is fully responsible for the content of the report.
--- NOTE | 2023-09-15 18:04 | EKG ---
Test Date: 2023-09-14 Test Time: 21:34:28 [employer]house Assembly Worker: SADIE MEASUREMENT RESULTS: Intervals: Rate: 92 IN: 136 QRSD: 80 QT: 368 QTc: 455 [place]: P: 52 IN: 136 QRS: 21 T: 45 INTERPRETIVE STATEMENTS: Normal sinus rhythm Normal ECG Compared to ECG 08/18/2023 08:24:20 Sinus tachycardia no longer present T-wave abnormality no longer present Electronically Signed On 09-15-23 18:03:04 CDT by Tae Butler
== END 2023-09-15 03:11 | disposition short-term general hospital (02) ==
LOC: ER 21:06
PROC: 30233N1 Transfusion of Nonautologous Red Blood Cells into Peripheral Vein, Percutaneous Approach (ICD-10-PCS; principal; 2023-09-15)
PROC: 05HM33Z Insertion of Infusion Device into Right Internal Jugular Vein, Percutaneous Approach (ICD-10-PCS; 2023-09-15)
DX: I50.33 Acute on chronic diastolic (congestive) heart failure (principal); K92.1 Melena; K92.2 Gastrointestinal hemorrhage, unspecified
CPT/HCPCS: 93005; 85025; 80048; 36415; 86900; 86850; 85610; 86901; 80076; 86920 ×2; 85018; 85014; 84484; 83880; 74177; 71045; 99285; 36430; 36556; Q9967; J1815 ×2; J2354; J2001; J2765; J1940; C9113 ×2; J3360; J2405; P9016; P9047; J7050 ×2; J7030

== ENCOUNTER 2025-03-10 06:47 | Emergency (ER) | payer BC ==
[2025-03-10 08:16] LABS: Absolute Basophils 0.1 K/uL (0-0.5); Absolute Eosinophils 0.5 K/uL (0-0.5); Absolute Lymphocytes (CBC) 1.4 K/uL (0.7-4.9); Absolute Monocytes 0.9 K/uL (0.1-1.3); Absolute Neutrophil 8.3 K/uL (1.8-8.0); Eosinophils % 4.3 % (0-4.4); Hematocrit 41.4 % (39.6-49.0); Hemoglobin 12.1 g/dL (13.6-17.9); Lymphocytes % 12.2 % (15.3-44.8); MCH 19.7 pg (27.0-35.0); MCHC 29.1 g/dL (32.0-36.0); MCV 67.5 fL (80-100); MPV 8.8 fL (7.6-11.3); Monocytes % 8.1 % (3.3-12.3); Neutrophils % 74.4 % (41.7-73.7); Nucleated Red Blood Cells % 0.1 % (0-0); Platelets 293 thou/uL (152-406); RBC Red Blood Cell Count 6.14 M/uL (4.33-5.43)
[2025-03-10 08:19] LABS: PT Prothrombin Time 10.2 SECONDS (10-13.0); PTT, Activated Partial Thromb 35.1 SECONDS (27.2-37.4); Protime INR 0.89
--- NOTE | 2025-03-10 08:19 | RAD REPORT ---
EXAMINATION: Head Brain Wo Cont CLINICAL INDICATION: Male, 55 years old.HEADACHE TECHNIQUE: Axial CT images from the skull base to the vertex without intravenous contrast. Coronal an d sagittal reformatted images were created from the data set. One or more of the following dose reduction techniques were used: Automated exposure control, adjustment of the mA and/or kV according to patient size, and/or iterative reconstruction. Unless otherwise specified, incidental findings do not require dedicated imaging follow-up. [id number]. COMPARISON: No prior exam. FINDINGS: INTRACRANIAL: No acute intracranial hemorrhage. No hydrocephalus. No mass effect or midline shift. No significant white matter disease. VASCULATURE: No visualized abnormalities in the arteries or dural venous sinuses. SCALP/SKULL: No calvarial fracture identified. No acute soft tissue abnormality. SINUSES: The visualized paranasal sinuses are mostly clear. No significant mastoid fluid. IMPRESSION: No acute intracranial abnormality.
[2025-03-10 08:29] LABS: Anion Gap 6.8 mEq/L (5.0-15.0); Ferritin 27.8 ng/mL (26-388); Potassium 3.8 mEq/L (3.5-5.1)
[2025-03-10] MEDS ORDERED: KETOROLAC 30 MG/ML INJ ONE (09:07)
[2025-03-10] MEDS ORDERED: HYDROCODONE/APAP 5/325 MG TAB ONE (09:07)
[2025-03-10] MEDS ORDERED: NA CHLORIDE 0.9% 500 ML ONE (09:07)
[2025-03-10 09:47] LABS: Anisocytosis 3+; Blood Morphology Comment NOTED (NOT SEEN); Hypochromasia 2+; Microcytosis 2+; Platelet Estimate ADEQ; Polychromasia SLIGHT; White Blood Cell Scan OK (OK)
[2025-03-10 09:48] LABS: Ovalocytes SLIGHT; Target Cells FEW
--- NOTE | 2025-03-10 10:14 | EDPHYS ---
Physician Documentation [facility] Name: Russel Sotelo Age: 55 yrs Sex: Male : 1970 Arrival Date: 03/10/2025 Time: 06:47 Bed 18 Private MD: ED Physician Min Best HPI: 03/10 07:25 This 55 yrs old Black Male presents to ER via Ambulatory with complaints of Headache. rn 07:25 The patient complains of pain to the top of head and forehead. The patient describes rn the headache as aching. Onset: The symptoms/episode began/occurred 5 day(s) ago. Associated signs and symptoms: Pertinent negatives: altered mental status, fever, neck stiffness, rash, vision loss, vomiting, weakness, vertigo. Severity of symptoms: At its worst the pain was mild, in the emergency department the pain is unchanged. The symptoms are alleviated by nothing. the symptoms are aggravated by nothing. The patient has not experienced similar symptoms in the past. Patient reports headache, started 5 days ago, no history of head injury. Patient reports told 1 month ago that had a hemoglobin of 7.3 and low iron. Patient told by primary care physician that low iron could cause headaches. 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 No focal weakness or numbness. No fever. No neck stiffness. No vision changes. No speech changes. Denies any chest pain or shortness of breath. No recent illness. No abdominal pain or vomiting.. Historical: - Allergies: 07:19 No Known Allergies; ss - PMHx: 07:19 Chronic obstructive lung disease; Congestive heart failure; Hypercholesterolemia; ss diabetes mellitus; Hypertensive disorder; Sleep Apnea; iron deficiency anemia (hole in intestines repaired); - PSHx: 07:19 hole in intestines repaired; ss - Immunization history:: Client reports receiving the 2nd dose of the Covid vaccine. - Infectious Disease History:: Denies. - Social history:: Smoking status: Patient reports use of chewing tobacco. - Family history:: not pertinent. - Hospitalizations: : No recent hospitalization is reported. ROS: 07:25 Constitutional: Negative for fever, chills, and weight loss, Neck: Negative for injury, rn pain, and swelling, Cardiovascular: Negative for chest pain, palpitations, and edema, Respiratory: Negative for shortness of breath, cough, wheezing, and pleuritic chest pain, Abdomen/GI: Negative for abdominal pain, nausea, vomiting, diarrhea, and constipation, MS/Extremity: Negative for injury and deformity, Skin: Negative for injury, rash, and discoloration, Neuro: Negative for weakness, numbness, tingling, and seizure Exam: 07:25 Constitutional: This is a well developed, well nourished patient who is awake, alert, rn and in no acute distress. Head/Face: Normocephalic, atraumatic. Eyes: Pupils equal round and reactive to light, extra-ocular motions intact. Neck: No neck stiffness or meningismus Cardiovascular: Regular rate and rhythm. No pulse deficits. Respiratory: No increased work of breathing, no retractions or nasal flaring. Abdomen/GI: Soft, non-tender MS/ Extremity: Pulses equal, no cyanosis. Neurovascular intact. Full, normal range of motion. Equal circumference. Neuro: Awake and alert, GCS 15, oriented to person, place, time, and situation. Cranial nerves II-XII grossly intact. Motor strength 5/5 in all extremities. Sensory grossly intact. Cerebellar exam normal. Normal gait. Vital Signs: 07:16 BP 152 / 91; Pulse 79; Resp 16; Temp 98.2(O); Pulse Ox 98% on R/A; Weight 131.54 kg; ss Height 5 ft. 9 in. ; Pain 8/10; 08:15 BP 144 / 76; Pulse 69; Resp 16 S; Pulse Ox 96% on R/A; aa5 07:16 Body Mass Index 42.83 (131.54 kg, 175.26 cm) 07:16 Pain Scale: Adult ss [place] Coma Score: 10:11 Eye Response: spontaneous(4). Motor Response: obeys commands(6). Verbal Response: rn oriented(5). Total: 15. MDM: 06:59 Medical Screening Exam initiated rn 07:37 ED course: Patient denies any dark stool or bloody stool. No hematemesis. Patient rn reports has history of GI bleed and "would know" if he was bleeding. Denies any feelings of lightheadedness or dyspnea. Patient reports has been dealing with anemia for a long time and told 1 month ago that he needed a blood transfusion which she never received. Patient is not taking iron supplementation either.. 10:11 Differential diagnosis: cluster headache, hypertensive headache, intracerebral rn hemorrhage, migraine, neoplasm, tension headache, vasomotor headache. Data reviewed: vital signs, nurses notes, lab test result(s), radiologic studies, CT scan, and as a result, I will discharge patient. Counseling: I had a detailed discussion with the patient and/or guardian regarding the historical points, exam findings, and any diagnostic results supporting the discharge/admit diagnosis, the presence of at least one elevated blood pressure reading (>120/80) during this emergency department visit, lab results, radiology results, the need for outpatient follow up, to return to the emergency department if symptoms worsen or persist or if there are any questions or concerns that arise at home. Special discussion: I have referred the patient to see his PCP for further evaluation of high blood pressure. I discussed with the patient/guardian in detail that at this point there is no indication for admission to the hospital. It is understood, however, that if the symptoms persist or worsen the patient needs to return immediately for re-evaluation. Based on the history and exam findings, there is no indication for further emergent testing or inpatient evaluation. I discussed with the patient/guardian the need to see the primary care provider for further evaluation of the symptoms. ED course: No acute findings and workup. Will discharge home with PCP follow-up. Hemoglobin near normal range. Patient denies any bleeding. Will follow-up with PCP for iron testing and possible supplementation. Return precautions given and understood. I have personally reviewed all of the results, including but not limited to blood tests and imaging deemed necessary to safely discharge this patient at this time. All results given to and printed out for patient. I personally went over all the results with the patient and answered all questions. Patient will follow-up with PCP and or specialist as discussed. Return precautions given and understood.. 03/10 07:21 Order name: CBC with Diff; Complete Time: 10:05 03/10 07:21 Order name: Basic Metabolic Panel; Complete Time: 08:30 03/10 07:21 Order name: Protime (+inr); Complete Time: 08:30 03/10 07:21 Order name: Ptt, Activated; Complete Time: 08:30 03/10 07:21 Order name: Ferritin; Complete Time: 08:03/10 08:30 Order name: CBC Smear Scan; Complete Time: 10:05 EDMS 03/10 07:21 Order name: CT Head Brain wo Cont; Complete Time: 08:30 rn 03/10 07:21 Order name: IV Start; Complete Time: 07:52 rn Administered Medications: 09:12 Drug: NS 0.9% IV 500 ml 500 ml IV at 1 bolus once; to be given as a bolus over 30 aa5 minutes Volume: 500 ml; Route: IV; Rate: 1 bolus; Site: left antecubital; 10:41 Follow up: IV Status: Completed infusion; IV Intake: 500ml ss 09:12 Drug: Ketorolac IVP 15 mg IVP once Route: IVP; Site: left antecubital; aa5 10:41 Follow up: Response: No adverse reaction ss 09:12 Drug: HYDROcodone-acetaminophen PO 5 mg-325 mg 1 tabs PO once Route: PO; aa5 10:41 Follow up: Response: No adverse reaction ss Disposition Summary: 03/10/25 10:13 Discharge Ordered Notes: Location: Home rn Problem: new rn Symptoms: have improved rn Condition: Stable rn Diagnosis - Headache rn - Anemia, unspecified rn Followup: rn - With: Private Physician - When: As needed - Reason: Recheck today's complaints, Re-evaluation by your physician Discharge Instructions: - Discharge Summary Sheet rn - Anemia rn - General Headache Without Cause rn - Hypertension, Adult rn Forms: - Medication Reconciliation Form rn - Antibiotic braid pattern setter - Prescription Opioid Use rn - Patient Portal Instructions rn - Leadership Thank You Letter rn Signatures: Dispatcher [employer] EDMT Min Best MD MD rn Calderon, Audri, RN RN aa5 Cathryn Zhu RN RN ss Corrections: (The following items were deleted from the chart) 07: 07:21 Head Brain Wo Cont+CT.RAD.BRZ ordered. EDMS EDMS 07:22 07:22 CBC+H.LAB.BRZ ordered. EDMS EDMS 07:22 07:22 BASIC METABOLIC PANEL+C.LAB.BRZ ordered. EDMS EDMS 07:22 07:22 PROTIME (+INR)+COAG.LAB.BRZ ordered. EDMS EDMS 07:22 07:22 PTT, ACTIVATED+COAG.LAB.BRZ ordered. EDMS EDMS 07:22 07:22 FERRITIN+C.LAB.BRZ ordered. EDMS EDMS 07: FERRITIN+C.LAB.BRZ ordered. EDMS EDMS
--- NOTE | 2025-03-10 10:14 | ER ---
Nurse's Notes [facility] Name: Russel Sotelo Age: 55 yrs Sex: Male : 1970 Arrival Date: 03/10/2025 Time: 06:47 Bed 18 Private MD: Diagnosis: Headache;Anemia, unspecified Presentation: 03/10 07:16 Chief complaint: Patient states: Migraine x 5 days. Pt states since he is here he would ss like to get his hemoglobin checked because he had lab work a month ago and was told he may need a transfusion and was recommended to a specialist. Coronavirus screen: Client denies travel out of the [place] in the last 14 days. Ebola Screen: Patient denies exposure to infectious person. Patient denies travel to an Ebola-affected area in the 21 days before illness onset. Initial Sepsis Screen: Does the patient meet any 2 criteria? No. Patient's initial sepsis screen is negative. Does the patient have a suspected source of infection? No. Patient's initial sepsis screen is negative. Risk Assessment: Do you want to hurt yourself or someone else? Patient reports no desire to harm self or others. Onset of symptoms was March 05, 2025. 07:16 Method Of Arrival: Ambulatory ss 07:16 Acuity: TRUE 3 ss Historical: - Allergies: 07:19 No Known Allergies; ss - PMHx: 07:19 Chronic obstructive lung disease; Congestive heart failure; Hypercholesterolemia; ss diabetes mellitus; Hypertensive disorder; Sleep Apnea; iron deficiency anemia (hole in intestines repaired); - PSHx: 07:19 hole in intestines repaired; ss - Immunization history:: Client reports receiving the 2nd dose of the Covid vaccine. - Infectious Disease History:: Denies. - Social history:: Smoking status: Patient reports use of chewing tobacco. - Family history:: not pertinent. - Hospitalizations: : No recent hospitalization is reported. Screenin:52 Abuse screen: Denies threats or abuse. Denies injuries from another. Nutritional ss screening: No deficits noted. 08:00 [facility] ED Fall Risk Assessment (Adult) History of falling in the last 3 months, aa5 including since admission No falls in past 3 months (0 pts) Confusion or Disorientation No (0 pts) Intoxicated or Sedated No (0 pts) Impaired Gait No (0 pts) Mobility Assist Device Used No (0 pt) Altered Elimination No (0 pt) Score/Fall Risk Level 0 - 2 = Low Risk Oriented to surroundings, Maintained a safe environment, Educated pt \T\ family on fall prevention, incl call for assistance when getting out of bed, Assessed \T\ reinforced patient's understanding of fall precautions. Tuberculosis screening: No symptoms or risk factors identified. Assessment: 08:00 General: Appears comfortable, Behavior is calm, cooperative. Pain: Complains of pain in aa5 whole head Pain currently is 8 out of 10 on a pain scale. Quality of pain is described as aching, pressure, throbbing, Pain began 5 days ago Is continuous. Neuro: Level of Consciousness is awake, alert, obeys commands, Oriented to person, place, time, situation. Cardiovascular: Patient's skin is warm and dry. Respiratory: Airway is patent Respiratory effort is even, unlabored, Respiratory pattern is regular, symmetrical. GI: No signs and/or symptoms were reported involving the gastrointestinal system. : No signs and/or symptoms were reported regarding the genitourinary system. EENT: No signs and/or symptoms were reported regarding the EENT system. Derm: Skin is dry, Skin is normal, Skin temperature is warm. Musculoskeletal: Range of motion: intact in all extremities. 09:12 Neuro: Level of Consciousness is awake, alert, obeys commands, Oriented to person, aa5 place, time, situation. Respiratory: Airway is patent Respiratory effort is even, unlabored, Respiratory pattern is regular, symmetrical. Derm: Skin is dry, Skin is normal, Skin temperature is warm. Vital Signs: 07:16 BP 152 / 91; Pulse 79; Resp 16; Temp 98.2(O); Pulse Ox 98% on R/A; Weight 131.54 kg; ss Height 5 ft. 9 in. ; Pain 8/10; 08:15 BP 144 / 76; Pulse 69; Resp 16 S; Pulse Ox 96% on R/A; aa5 07:16 Body Mass Index 42.83 (131.54 kg, 175.26 cm) ss 07:16 Pain Scale: Adult ss [place] Coma Score: 10:11 Eye Response: spontaneous(4). Motor Response: obeys commands(6). Verbal Response: rn oriented(5). Total: 15. ED Course: 06:51 Patient arrived in ED. gm2 06:59 Min Best MD is Attending Physician. rn 07:19 Triage completed. ss 07:19 Arm band placed on right wrist. ss 07:46 Yajaira Blue, RN is Primary Nurse. aa5 07:52 Ferritin Sent. ss 07:52 Protime (+inr) Sent. ss 07:52 Ptt, Activated Sent. ss 07:52 Basic Metabolic Panel Sent. ss 07:52 CBC with Diff Sent. ss 07:52 Inserted saline lock: 22 gauge in left antecubital area, using aseptic technique. Blood ss collected. Flushed with 10 mL NS. 08:00 Patient has correct armband on for positive identification. Bed in low position. Call aa5 light in reach. Side rails up X 1. Pulse ox on. NIBP on. 08:01 CT Head Brain wo Cont In Process Unspecified. EDMS 10:38 No provider procedures requiring assistance completed. IV discontinued, intact, ss bleeding controlled, No redness/swelling at site. Pressure dressing applied. Administered Medications: 09:12 Drug: NS 0.9% IV 500 ml 500 ml IV at 1 bolus once; to be given as a bolus over 30 aa5 minutes Volume: 500 ml; Route: IV; Rate: 1 bolus; Site: left antecubital; 10:41 Follow up: IV Status: Completed infusion; IV Intake: 500ml 09:12 Drug: Ketorolac IVP 15 mg IVP once Route: IVP; Site: left antecubital; aa5 10:41 Follow up: Response: No adverse reaction ss 09:12 Drug: HYDROcodone-acetaminophen PO 5 mg-325 mg 1 tabs PO once Route: PO; aa5 10:41 Follow up: Response: No adverse reaction ss Medication: 09:15 VIS not applicable for this client. aa5 Intake: 10:41 IV: 500ml; Total: 500ml. ss Outcome: 10:13 Discharge ordered by . rn 10:38 Discharged to home ambulatory, ss 10:38 Condition: good 10:38 Discharge instructions given to patient, Instructed on discharge instructions, follow up and referral plans. medication usage, Demonstrated understanding of instructions, follow-up care, 10:41 Patient left the ED. ss Signatures: Dispatcher [employer] EDCA Min Best MD MD rn Calderon, Audri, RN RN aa5 Cathryn Zhu RN RN Stella Finley gm2
[2025-03-12 16:25] VITALS: TEMP 98.2
[2025-03-12 16:27] VITALS: BP 144/76; O2SAT 96
== END 2025-03-10 10:41 | disposition home or self-care (01) ==
LOC: ER 06:47
DX: R51.9 Headache, unspecified (principal); D64.9 Anemia, unspecified; F17.220 Nicotine dependence, chewing tobacco, uncomplicated
CPT/HCPCS: 96361; 85025; 80048; 36415; 85610; 85730; 82728; 70450; 96374; 99284; J7040